=== PATIENT | male | born 1955 | race Caucasian/White ===

== ENCOUNTER 2023-03-18 10:53 | Outpatient (OUT) | payer OTHER, SELFPAY ==
--- NOTE | 2023-03-18 11:08 | US_ITS ---
The [address] [address] Patient Name: SHANNON DANIELS MRN: [id number] date: 1955 Sex: M Assigned Patient Location: US Current Patient Location: US Accession/Order Number: [id number] Exam Date: 03/18/2023 11:09 Report Date: 03/18/2023 14:42 At the request of: SHAIKH JEREL Procedure: US extremity nonvascular LT EXAMINATION: US extremity nonvascular LT HISTORY: Cellulitis of left lower leg L03.116 COMPARISON: No relevant comparison available. FINDINGS: Skin surface defect consistent with known wound. Extending from this wound within the subcutaneous fat is a 6.6 cm long heterogeneous slightly hypoechoic area 0.8 x 0.8 cm in diameter; likely phlegmonous changes; no definable abscess. Skin thickening in area of wound. US/US extremity nonvascular LT IMPRESSION: 1. Suspect phlegmonous changes within subcutaneous tissues extending from the wound. No abscess at this time. Electronically authenticated by: STACY JONES Date: 03/18/2023 14:42
== END 2023-03-18 10:54 | disposition home or self-care (01) ==
LOC: US 10:56
PROVIDERS: PCP Internal Medicine; Visit Provider Internal Medicine
DX: L03.116 Cellulitis of left lower limb (principal)
CPT/HCPCS: 76882

== ENCOUNTER 2023-03-19 13:46 | Outpatient (OUT) | payer OTHER, SELFPAY | END 2023-03-19 13:47 | disposition home or self-care (01) | LOC: WC 13:46 | PROVIDERS: PCP Internal Medicine; Visit Provider Surgery | DX: E11.622 Type 2 diabetes mellitus with other skin ulcer (principal); L97.921 Non-pressure chronic ulcer of unspecified part of left lower leg limited to breakdown of skin | CPT/HCPCS: G0463 ==

== ENCOUNTER 2023-06-16 08:35 | Outpatient (OUT) | payer OTHER, SELFPAY ==
--- NOTE | 2023-06-16 08:44 | XR_ITS ---
The [address] [address] Patient Name: SHANNON DANIELS MRN: [id number] date: 1955 Sex: M Assigned Patient Location: LAB Current Patient Location: LAB Accession/Order Number: [id number] Exam Date: 06/16/2023 08:50 Report Date: 06/16/2023 16:12 At the request of: SHAIKH JEREL Procedure: XR knee CARLOS 4V EXAM: XR knee CARLOS 4V HISTORY: Bilateral Knee Pain COMPARISON: None. TECHNIQUE: Routine views of the XR knee CARLOS 4V FINDINGS/ XR/XR knee CARLOS 4V IMPRESSION: 1. No acute fractures. 2. Unremarkable soft tissues. 3. Moderate to severe tricompartmental bilateral knee osteoarthritis. Multiple right-sided small intra-articular osteochondral bodies. No significant effusion. Electronically authenticated by: PABLO DUMONT Date: 06/16/2023 16:12
[2023-06-16 09:22] LABS: Basophils Absolute Auto 0.1 10^3/uL (0.0-0.1); Basophils Percent Auto 0.7 % (0.2-2.0); Eosinophils Absolute Auto 0.2 10^3/uL (0.0-0.7); Eosinophils Percent Auto 2.2 % (0.9-7.0); Hematocrit 44.3 % (42.0-54.0); Immature Granulocytes Abs Auto 0.02 10^3/uL (0.00-0.03); Immature Granulocytes Pct Auto 0.2 % (0.0-0.5); Lymphocytes Absolute Auto 2.2 10^3/uL (1.2-3.8); Lymphocytes Percent Auto 25.2 % (20.5-60.0); Mean Corpuscular HGB Conc 33.9 g/dL (29.9-35.2); Mean Corpuscular Hemoglobin 28.6 pg (25.9-34.0); Mean Corpuscular Volume 84.5 fL (80.0-94.0); Mean Platelet Volume 9.9 fL (9.5-13.5); Monocytes Absolute Auto 0.5 10^3/uL (0.3-0.8); Monocytes Percent Auto 5.8 % (1.7-12.0); Neutrophils Absolute Auto 5.7 10^3/uL (1.4-6.5); Neutrophils Percent Auto 65.9 % (43.0-75.0); Platelet Count 180 10^3/uL (150-450); Red Blood Count 5.24 10^6/uL (4.70-6.10); Red Cell Distribution Width 13.6 % (11.0-15.0); White Blood Count 8.7 10^3/uL (4.0-11.0)
[2023-06-16 10:03] LABS: Estimated Average Glucose 157 mg/dL; Glycohemoglobin A1C 7.1 % (4.5-6.2)
[2023-06-16 10:23] LABS: Alanine Aminotransferase 30 U/L (16-63); Albumin Globulin Ratio 1.2; Alkaline Phosphatase 79 U/L (46-116); Anion Gap 15.5; Aspartate Amino Transferase 14 U/L (15-37); BUN Creatinine Ratio 18.3; Bilirubin Total 0.4 mg/dL (0.2-1.0); Calcium 9.1 mg/dL (8.5-10.1); Carbon Dioxide 28.3 mmol/L (21.0-32.0); Chloride 101 mmol/L (98-107); Chol HDL Ratio 3.8; Cholesterol 174 mg/dL (<=200); Estimated GFR (African America >60 (>=60); Estimated GFR (Non-African Ame >60 (>=60); Globulin 3.4 g/dL; Glucose 138 mg/dL (74-106); HDL Cholesterol 46 mg/dL (40-60); Potassium 3.8 mmol/L (3.5-5.1); Sodium 141 mmol/L (136-145); Total Protein 7.4 g/dL (6.4-8.2); Triglycerides 189 mg/dL (<=150); VLDL CHOLESTEROL 37.8 mg/dL
[2023-06-16 11:42] LABS: Prostate Specific Antigen Scrn 0.36 ng/mL (<=4.00)
== END 2023-06-16 08:36 | disposition home or self-care (01) ==
LOC: LAB 08:36
PROVIDERS: PCP Internal Medicine; Visit Provider Internal Medicine
DX: E78.5 Hyperlipidemia, unspecified (principal); E11.9 Type 2 diabetes mellitus without complications; Z12.5 Encounter for screening for malignant neoplasm of prostate; M25.561 Pain in right knee; M25.562 Pain in left knee; M17.0 Bilateral primary osteoarthritis of knee
CPT/HCPCS: 36415; 73564; 80053; 80061; 83036; 85025; G0103

== ENCOUNTER 2023-08-28 09:13 | Outpatient (OUT) | payer OTHER, SELFPAY ==
--- NOTE | 2023-08-28 | ECG_ITS ---
The [facility] Test Date: 2023-08-28 Pat Name: SHANNON DANIELS Department: Room: - Gender: Male [employer]: : 1955 Requested By: SHAIKH JEREL Order Number: [id number] Reading MD: MAIA MOMIN Measurements Intervals [place] Rate: 89 P: 51 [place]: 159 QRS: 47 QRSD: 111 T: 47 QT: 337 QTc: 411 Interpretive Statements SINUS RHYTHM LOW QRS VOLTAGE IN PRECORDIAL LEADS [QRS DEFLECTION < 1.0 mV IN CHEST LEADS] MODERATE INTRAVENTRICULAR CONDUCTION DELAY [110+ ms QRS DURATION] No previous ECG available for comparison Electronically Signed On 08-29-2023 7:11:01 EST by MAIA MOMIN
== END 2023-08-28 09:14 | disposition home or self-care (01) ==
LOC: CARD 09:15
PROVIDERS: PCP Internal Medicine; Visit Provider Internal Medicine
DX: R06.09 Other forms of dyspnea (principal)
CPT/HCPCS: 93005

== ENCOUNTER 2023-10-05 08:37 | Outpatient (OUT) | payer OTHER, SELFPAY ==
--- NOTE | 2023-10-05 08:00 | NM_ITS ---
Patient Name: SHANNON DANIELS MR#: [id number] : 1955 Exam Date: 10/05/2023 Ordering Doctor: SHAIKH Holly BELTRÁN . RADIOLOGY REPORT PROCEDURE: NM ALEJANDRO PERF SPECT REST STR COMPARISON: None. INDICATIONS: DYSPNEA ON EXERTION TECHNIQUE: Exam Description: Stress/Rest two day protocol gated SPECT Rest Imagin.0 mCi Tc-99m Cardiolite IV on 10/05/2023 Stress Imaging 25.3 mCi Tc-99m Cardiolite IV on 10/07/2023 Exercise Protocol: 0.4 mg Lexiscan given IV Heart Rate (bpm): Rest: 80 Max: 96 PMHR: 62 Blood Pressure: Rest: 156/84 Max: 170/96 Symptoms: Rest and peak stress ECG findings were normal and the exercise portion of the study was normal per attending physician Dr. Hurst . For more details please see separate cardiac stress test report. FINDINGS: QUALITY OF STUDY: Good. PERFUSION DEFECT: LOCATION: Basal inferior. Mid-inferior. Apical inferior. SIZE: Medium (3-4 segments). SEVERITY: Moderate. TYPE: Persistent. WALL MOTION: Normal. LV SIZE: Enlarged; EDV 156 mL. TID / TCD: None; 1.0 LVEF: Normal. Calculated EF 60%. SUMMARY: Myocardial perfusion imaging study has ABNORMAL findings. CONCLUSION: 1. No acute or reversible ischemia. 2. Fixed defect involving inferior wall from base to apex versus diaphragm attenuation artifact. 3. Left ventriculomegaly, 156 mL. 4. Normal wall motion and ejection fraction. Dictated by: Jose Manuel Judd M.D. on 10/08/2023 at 09:28 Approved by: Jose Manuel Judd M.D. on 10/08/2023 at 09:32
--- OUTSIDE RECORDS SUMMARY | 2023-10-05 08:41 | XMS_ITS | CCD ---
Author Name Unknown Address [address] [facility] [address] [place] [address] Organization [facility] Care Team Providers Care Hearing Impaired Itinerant Teacher Name Role Phone PaulaEma Unavailable SHAIKH Shadi RAM Attending Unavailable SHAIKH Shadi RAM Admitting Unavailable SHAIKH Shadi RAM Primary Care Unavailable SHAIKH Shadi RAM Admitting Unavailable SHAIKH Shadi RAM Primary Care Unavailable SHAIKH Shadi RAM Consulting Unavailable SHAIKH Shadi RAM Attending Unavailable Ban Heaton Unavailable Shaikh Ram MD Primary Care Provider [phone] SHAIKH RAM Attending Unavailable STEWART FLYNN Attending Unavailable Medications Current Medications Medication Drug Class(es) Dates Sig (Normalized) Sig (Original) ALPRAZolam 1 mg oral tablet (2 sources) Benzodiazepine take 1 tablet by mouth every twelve hours ALPRAZolam 1 MG 1 tablet Orally Twice a day Active ascorbic acid 60 mg / beta carotene 5000 unt / copper sulfate 40 mg / dl-alpha tocopheryl acetate 30 unt / sodium selenite 0.04 mg / zinc oxide 40 mg oral tablet (3 sources) Vitamin C Multiple Vitamin (Multivitamin Adult) tablet Orally 0 Active aspirin 81 mg delayed release oral tablet (7 sources) Platelet Aggregation Inhibitor, Nonsteroidal Anti-inflammatory Drug take 1 tablet by mouth in the morning aspirin 81 MG EC tablet Take 81 mg by mouth in the morning. 0 Active aspirin 81 MG ch ewable tablet Chew 81 mg in the morning. 0 Active carvedilol 12.5 mg oral tablet (3 sources) alpha-Adrenergic Gabby, beta-Adrenergic Gabby take 1 tablet by mouth every twelve hours carvedilol (Coreg) 12.5 MG tablet Take 12.5 mg by mouth every 12 (twelve) hours 0 Active cephalexin 500 mg oral capsule (1 source) Cephalosporin Antibacterial Start: 2022 take 1 capsule by mouth every eight hours Cephalexin 500 MG 1 capsule Orally every 8 hrs for 7 days Feb, Active Continuous Blood Gluc Computer Numerical Control Machinist (FreeStyle Anamaria 2 [place]) device (3 sources) Start: 2022 Continuous Blood Gluc Computer Numerical Control Machinist (FreeStyle Anamaria 2 [place]) device USE DIRECTED to test BLOOD SUGAR 0 06/15/2023 Active Continuous Blood Gluc Sensor (FreeStyle Anamaria 2 Sensor) misc (3 sources) Start: 2022 Continuous Blood Gluc Sensor (FreeStyle Anamaria 2 Sensor) misc USE DIRECTED to test BLOOD SUGAR; change EVERY 14 days 0 06/15/2023 Active 0.5 ml dulaglutide 3 mg/ml auto-injector (3 sources) GLP-1 Receptor Agonist inject 1.5 mg by subcutaneous injection every week Trulicity 1.5 MG/0.5ML solution pen-injector INJECT 1.5 mg SUBCUTANEOUSLY once a week 0 Active DULoxetine 30 mg delayed release oral capsule (3 sources) Serotonin and Norepinephrine Reuptake Inhibitor Start: 2023 take 1 capsule by mouth once daily DULoxetine (Cymbalta) [address] capsule Indications: Other specified anxiety disorders TAKE 1 CAPSULE BY MOUTH DAILY 30 capsule 0 09/07/2023 Active Start: 08-13-2023 take 1 capsule by [facility] once daily DULoxetine (Cymbalta) [address] capsule Indications: Other specified anxiety disorders TAKE 1 CAPSULE BY MOUTH DAILY 30 capsule 0 08/13/2023 Active furosemide 40 mg oral tablet (2 sources) Loop Diuretic take 1 tablet by mouth every twenty-four hours Furosemide 40 MG 1 tablet Orally Once a day Active hydroCHLOROthiazide 25 mg / lisinopril 20 mg oral tablet (3 sources) Thiazide Diuretic, Angiotensin Converting Enzyme Inhibitor take 1 tablet by mouth in the morning lisinopril-hydro CHLOROthiazide 20-25 MG tablet Take 1 tablet by mouth in the morning. 0 Active lisinopril 10 mg oral tablet (2 sources) Angiotensin Converting Enzyme Inhibitor take 1 tablet by mouth every twenty-four hours Lisinopril 10 MG 1 tablet Orally Once a day Active loratadine 10 mg oral tablet (3 sources) Start: End: take 1 tablet by mouth once in the morning loratadine (Claritin) 10 MG tablet Indications: H/O seasonal allergies Take 1 tablet (10 mg) by mouth in the morning. 90 tablet 0 09/07/2023 12/06/2023 Active Start: 07-09-2023 End: 08-27-2023 take 1 capsule by mouth in the morning Loratadine 10 MG capsule Indications: Non-seasonal allergic rhinitis, unspecified trigger Take 10 mg by mouth in the morning. 30 capsule 1 07/09/2023 08/27/2023 Discontinued (Therapy completed) meloxicam 15 mg oral tablet (3 sources) Nonsteroidal Anti-inflammatory Drug Start: 06-15-2023 take 1 tablet by mouth every twenty-four hours as needed meloxicam (Mobic) 15 MG tablet Take 15 mg by mouth Daily as needed 0 06/15/2023 Active metFORMIN hydrochloride 1000 mg oral tablet (5 sources) Biguanide take 1 tablet by mouth in the morning metFORMIN (Glucophage) 1000 MG tablet Take 1,000 mg by mouth in the morning and 1,000 mg before bedtime. 0 Active take 1 tablet by ronda th every twelve hours metFORMIN HCl 500 MG 1 tablet with meals Orally Twice a day Active Multivitamin Adult - (2 sources) Multivitamin Justin lt - Orally Active PARoxetine hydrochloride 20 mg oral tablet (3 sources) Serotonin Reuptake Inhibitor Start: 3 take 1 tablet by mouth in the morning PARoxetine (Paxil) 20 MG tablet Take 20 mg by mouth in the morning. 0 06/16/2023 Active pravastatin sodium 40 mg oral tablet (5 sources) HMG-CoA Reductase Inhibitor take 1 tablet by mouth in the morning pravastatin (Pravachol) 40 MG tablet Take 40 mg by mouth in the morning. 0 Active traMADol hydrochloride 50 mg oral tablet (2 sources) Opioid Agonist take 1 tablet by mouth every six hours traMADol HCl 50 MG 1 tablet as needed Orally every 6 hrs Active traZODone hydrochloride 50 mg oral tablet (2 sources) Serotonin Reuptake Inhibitor take 1 tablet by mouth at bedtime traZODone HCl 50 MG 1 tablet at bedtime Orally Active Completed/Discontinued Medications Medication Drug Class(es) Dates Sig (Normalized) Sig (Original) amLODIPine 10 mg oral tablet (4 sources) Dihydropyridine Calcium Channel Gabby End: 08-27-2023 take 1 tablet by mouth in the morning amLODIPine (Norvasc) 10 MG tablet Take 10 mg by mouth in the morning. 0 08/27/2023 Discontinued (Therapy completed) 24 hr buPROPion hydrochloride 150 mg extended release oral tablet (4 sources) Aminoketone End: 08-27-2023 take 1 tablet by mouth every twenty-four hours in the morning buPROPion XL (Wellbutrin XL) 150 MG 24 hr tablet Take 150 mg by mouth in the morning. 0 08/27/2023 Discontinued (Ineffective) take 1 tablet by ronda th every twenty-four hours buPROPion HCl ER (XL) 150 MG 1 tablet in the morning Orally Once a day Active FLUoxetine 20 mg oral capsule (2 sources) Serotonin Reuptake Inhibitor take 1 capsule by mouth every twenty-four hours FLUoxetine HCl 20 MG 1 capsule in the morning Orally Once a day Not-Taking ketorolac tromethamine 5 mg/ml ophthalmic solution (3 sources) Nonsteroidal Anti-inflammatory Drug, Cyclooxygenase Inhibitor Start: 023 End: 024 take 1 drop(s) into the eye(s) four times daily ketorolac (Acular) 0.5 % ophthalmic solution INSTILL 1 DROP into operative eye FOUR TIMES DAILY DIRECTED 0 01/04/2023 08/27/2023 Discontinued (Therapy completed) Start: 08-10-2017 Toradol per 15 mg Jul, 60 mg naproxen 500 mg oral tablet (2 sources) Nonsteroidal Anti-inflammatory Drug End: 08-27-2023 naproxen (Naprosyn) 500 MG tablet every 12 (twelve) hours 0 08/27/2023 Discontinued (Therapy completed) Problems Active Problems Problem Classification Problem Date Documented Da te Episodic/Chronic Allergic reactions (1 source) H/O: non-drug allergy; Translations: [Allergy status to unspecified drugs, medicaments and biological substances status] 09-07-2023 Episodic Diabetes mellitus without complication (7 sources) Type 2 diabetes mellitus without complications; Translations: [Type 2 diabetes mellitus without complication] Onset: 10-08-2022 Chronic Disorders of lipid metabolism (3 sources) Hyperlipidemia, unspecified; Translations: [Hyperlipidemia] Onset: 10-16-2022 08-27-2023 Chronic Essential hypertension (3 sources) Essential hypertension; Translations: [Essential (primary) hypertension] Onset: 08-27-2023 08-27-2023 Chronic Open wounds of extremities (1 source) Laceration without foreign body, left lower leg, initial encounter Episodic Other lower respiratory disease (3 sources) Dyspnea on exertion; Translations: [Other forms of dyspnea] Onset: 08-27-2023 08-27-2023 Episodic Other non-traumatic joint disorders (3 sources) Pain in right knee; Translations: [Pain in joint, lower leg] Onset: 06-22-2023 06-22-2023 Episodic Other nutritional; endocrine; and metabolic disorders (3 sources) Severe obesity; Translations: [Morbid (severe) obesity due to excess calories] Onset: 07-09-2023 07-09-2023 Chronic Other upper respiratory disease (3 sources) Allergic rhinitis; Translations: [Other allergic rhinitis] Onset: 07-09-2023 07-09-2023 Chronic Other upper respiratory infections (4 sources) Acute upper respiratory infection, unspecified; Translations: [Acute sinusitis] Onset: 07-12-2021 Resolved: 07-12-2021 Episodic Residual codes; unclassified (3 sources) Obstructive sleep apnea syndrome; Translations: [Obstructive sleep apnea (adult) (pediatric)] Onset: 08-27-2023 08-27-2023 Chronic Spondylosis; intervertebral disc disorders; other back problems (4 sources) Lumbar spondylosis; Translations: [Spondylosis without myelopathy or radiculopathy, lumbar region] Onset: 08-30-2018 08-27-2023 Chronic Past or Other Problems Problem Classification Problem Date Documented Da te Episodic/Chronic Immunizations and screening for infectious disease (1 source) Contact with and (suspected) exposure to other viral communicable diseases Onset: 07-12-2021 Resolved: 07-12-2021 Episodic Malaise and fatigue (1 source) Other fatigue Onset: 07-12-2021 Resolved: 07-12-2021 Episodic Mood disorders (2 sources) Mood disorders Onset: 08-27-2023 08-27-2023 Other non-traumatic joint disorders (2 sources) Pain in right hip joint; Translations: [Pain in right hip] Onset: 04-20-2019 08-27-2023 Episodic Results Test Name Value Interpretation Reference Range Facility CBC AUTO DIFFon 10-08-2022 BASO # 0.1 103/ul Normal 0.0-0.1 [facility] Comment on above: Performed By: #### C BC #### [facility] [address] [place] [address] Dr. Brandon Gilmore Basophils/100 WBC (Bld) 0.8 % Normal 0.2-2.0 [facility] Comment on above: Performed By: #### C BC #### [facility] [address] [place] [address] Dr. Brandon iGlmore EO # 0.1 103/ul Normal 0.0-0.7 [facility] Comment on above: Performed By: #### C BC #### [facility] [address] [place] [address] Dr. Brandon Gilmore Eosinophils/100 WBC (Bld) 1.7 % Normal 0.9-7.0 [facility] Comment on above: Performed By: #### C BC #### [facility] [address] [place] [address] Dr. Brandon Gilmore Erythrocyte distribution width (RBC) [Ratio] 14.0 % Normal 11.0-15.0 [facility] Comment on above: Performed By: #### C BC #### [facility] [address] [place] [address] Dr. Brandon Gilmore Hematocrit (Bld) [Volume fraction] 42.7 % Normal 42.0-54.0 [facility] Comment on above: Performed By: #### C BC #### [facility] [address] [place] [address] Dr. Brandon Gilmore Hemoglobin (Bld) [Mass/Vol] 14.9 g/dL Normal 14.0-18.0 [facility] Comment on above: Performed By: #### C BC #### [facility] [address] [place] [address] Dr. Brandon Gilmore IG # 0.02 10e3/ul Normal 0.00-0.03 [facility] Comment on above: Performed By: #### C BC #### [facility] [address] [place] [address] Dr. Brandon Gilmore IG % 0.3 % Normal 0.0-0.5 [facility] Comment on above: Performed By: #### C BC #### [facility] [address] [place] [address] Dr. Brandon Gilmore LYMPH # 1.9 103/ul Normal 1.2-3.8 [facility] Comment on above: Performed By: #### C BC #### [facility] [address] [place] [address] Dr. Brandon Gilmroe Lymphocytes/100 WBC (Bld) 25.0 % Normal 20.5-60.0 [facility] Comment on above: Performed By: #### C BC #### [facility] [address] [place] [address] Dr. Brandon Gilmore MANUAL DIFF REQ NO Normal [facility] Comment on above: Performed By: #### C BC #### [facility] [address] [place] [address] Dr. Brandon Gilmore MCH (RBC) [Entitic mass] 29.1 pg Normal 25.9-34.0 [facility] Comment on above: Performed By: #### C BC #### [facility] [address] [place] [address] Dr. Brandon Gilmore MCHC (RBC) [Mass/Vol] 34.9 g/dL Normal 29.9-35.2 [facility] Comment on above: Performed By: #### C BC #### [facility] [address] [place] [address] Dr. Brandon Gilmore MCV (RBC) [Entitic vol] 83.4 fL Normal 80.0-94.0 [facility] Comment on above: Performed By: #### C BC #### [facility] [address] [place] [address] Dr. Brandon Gilmore MONO # 0.5 103/ul Normal 0.3-0.8 [facility] Comment on above: Performed By: #### C BC #### [facility] [address] [place] [address] Dr. Brandon Gilmore Monocytes/100 WBC (Bld) 6.1 % Normal 1.7-12.0 [facility] Comment on above: Performed By: #### C BC #### [facility] [address] [place] [address] Dr. Brandon Gilmore NEUT # 5.1 103/ul Normal 1.4-6.5 [facility] Comment on above: Performed By: #### C BC #### [facility] [address] [place] [address] Dr. Brandon Gilmore Neutrophils/100 WBC (Bld) 66.1 % Normal 43.0-75.0 [facility] Comment on above: Performed By: #### C BC #### [facility] [address] [place] [address] Dr. Brandon Gilmore Platelet mean volume (Bld) [Entitic vol] 9.7 fL Normal 9.5-13.5 [facility] Comment on above: Performed By: #### C BC #### [facility] [address] [place] [address] Dr. Brandon Gilmore PLT 195 103/ul Normal 150-450 [facility] Comment on above: Performed By: #### C BC #### [facility] [address] [place] [address] Dr. Brandon Gilmore RBC 5.12 106/ul Normal 4.70-6.10 [facility] Comment on above: Performed By: #### C BC #### [facility] [address] [place] [address] Dr. Brandon Gilmore WBC 7.7 103/ul Normal 4.0-11.0 [facility] Comment on above: Performed By: #### C BC #### [facility] [address] [place] [address] Dr. Brandon Gilmore GLYCOHEMOGLOBIN A1Con 2022 ADA RECOMMENDATION SEE BELOW Normal [facility] Comment on above: Result Comment: ADA RECOMMENDED LIMIT 4.0 - 6.0 ADA THERAPEUTIC TARGET < 7.0 ACTION SUGGESTED > 7.0 Performed By: #### A 1C #### [facility] [address] [place] [address] Dr. Brandon Gilmore Glucose [Mass/Vol] 137 mg/dL Normal [facility] Comment on above: Performed By: #### A 1C #### [facility] [address] [address] [address] Brandon Gilmore HbA1c (Bld) [Mass fraction] 6.4 % Critically high 4.5-6.2 [facility] Comment on above: Performed By: #### A 1C #### [facility] [address] [address] [address] Brandon Gilmore LIPID PROFILEon 10-08-2022 CHOL-HDL RATIO NORM SEE BELOW Normal [facility] Comment on above: Result Comment: 3.3 - 4.4 LOW RISK 4.4 - 7.1 AVERAGE RISK 7.1 - 11.0 MODERATE RISK >11.0 HIGH RISK Performed By: #### L IPID, CMP #### [facility] [address] [address] [address] Brandon Gilmore Cholesterol [Mass/Vol] 196 mg/dL Normal <=200 [facility] Comment on above: Performed By: #### L IPID, CMP #### [facility] [address] [address] [address] Brandon Gilmore Cholesterol in HDL [Mass/Vol] 48 mg/dL Normal 40-60 [facility] Comment on above: Performed By: #### L IPID, CMP #### [facility] [address] [address] [address] Brandon Gilmore Cholesterol in LDL [Mass/Vol] 101.8 mg/dL Normal [facility] Comment on above: Performed By: #### L IPID, CMP #### [facility] [address] [address] [address] Brandon Gilmore Cholesterol.total/Ch olesterol in HDL [Mass ratio] 4.1 {ratio} Normal [facility] Comment on above: Performed By: #### L IPID, CMP #### [facility] [address] [address] [address] Brandon Gilmore HDL NORMAL > or = 60 mg/dl - LOW CARDIOVASCULAR RISK <40 mg/dl - HIGH CARDIOVASCULAR RISK Normal [facility] Comment on above: Performed By: #### L IPID, CMP #### [facility] [address] [address] [address] Brandon Gilmore LDL CALC NORMAL SEE BELOW Normal [facility] Comment on above: Result Comment: <100 mg/dl OPTIMAL 100 - 129 mg/dl NEAR OR ABOVE OPTIMAL 130 - 159 mg/dl BORDERLINE HIGH 160 - 189 mg/dl HIGH >190 mg/dl VERY HIGH Performed By: #### L IPID, CMP #### [facility] [address] [address] [address] Brandon Gilmore Triglyceride [Mass/Vol] 231 mg/dL Critically high <=150 [facility] Comment on above: Performed By: #### L IPID, CMP #### [facility] [address] [address] [address] Brandon Gilmore VLDL CALC 46.2 mg/dL Normal [facility] Comment on above: Performed By: #### L IPID, CMP #### [facility] [address] [address] [address] Brandon Gilmore MICROALB CREAT RATIO RANDOMo n 10-08-2022 mALB 1.7 mg/L Normal <=30.0 [facility] Comment on above: Performed By: #### M CRR #### [facility] [address] [address] [address] Brandon Gilmore MALB CR RATIO 20.6 mg/g Normal 0.0-29.9 [facility] Comment on above: Performed By: #### M CRR #### [facility] [address] [address] [address] Brandon Gilmore MALB CR RATIO RANGE SEE BELOW Normal [facility] Comment on above: Result Comment: NO M ICROALBUMINURIA 0-29 MG/G CLINICAL MICROALBUMINURIA 30-300 MG/G MACROALBUMINURIA >300 MG/G Performed By: #### M CRR #### [facility] [address] [address] [address] Brandon Gilmore URINE CREAT 82.51 mg/dL Normal 20.00-300.00 [facility] Comment on above: Performed By: #### M CRR #### [facility] [address] [address] [address] Brandon Gilmore PROF 14(COMP METB)on 023 Albumin [Mass/Vol] 4.0 g/dL Normal 3.4-5.0 [facility] Comment on above: Performed By: #### L IPID, CMP #### [facility] [address] [address] [address] Brandon Gilmore Albumin/Globulin [Mass ratio] 1.2 {ratio} Normal [facility] Comment on above: Performed By: #### L IPID, CMP #### [facility] [address] [place] [address] Dr. Brandon Gilmore ALP [Catalytic activity/Vol] 90 U/L Normal 46-116 [facility] Comment on above: Performed By: #### L IPID, CMP #### [facility] [address] [place] [address] Dr. Brandon Gilmore ALT [Catalytic activity/Vol] 25 U/L Normal 16-63 [facility] Comment on above: Performed By: #### L IPID, CMP #### [facility] [address] [address] [address] Brandon Gilmore Anion gap [Moles/Vol] 10.9 mmol/L Normal [facility] Comment on above: Performed By: #### L IPID, CMP #### [facility] [address] [address] [address] Brandon Gilmore AST [Catalytic activity/Vol] 17 U/L Normal 15-37 [facility] Comment on above: Performed By: #### L IPID, CMP #### [facility] [address] [address] [address] Brandon Gilmore Bilirubin [Mass/Vol] 0.4 mg/dL Normal 0.2-1.0 [facility] Comment on above: Performed By: #### L IPID, CMP #### [facility] [address] [place] [address] Dr. Brandon Gilmore Calcium [Mass/Vol] 10.1 mg/dL Normal 8.5-10.1 [facility] Comment on above: Performed By: #### L IPID, CMP #### [facility] [address] [place] [address] Dr. Brandon Gilmore Chloride [Moles/Vol] 106 mmol/L Normal 98-107 [facility] Comment on above: Performed By: #### L IPID, CMP #### [facility] [address] [place] [address] Dr. Brandon Gilmore CO2 [Moles/Vol] 29.4 mmol/L Normal 21.0-32.0 [facility] Comment on above: Performed By: #### L IPID, CMP #### [facility] [address] [place] [address] Dr. Brandon Gilmore Creatinine [Mass/Vol] 0.78 mg/dL Normal 0.70-1.30 [facility] Comment on above: Performed By: #### L IPID, CMP #### [facility] [address] [place] [address] Dr. Brandon Gilmore EGFR-AF SINGAPOREAN >60 Normal >=60 [facility] Comment on above: Performed By: #### L IPID, CMP #### [facility] [address] [place] [address] Dr. Brandon Gilmore EGFR-NON AF SINGAPOREAN >60 Normal >=60 [facility] Comment on above: Performed By: #### L IPID, CMP #### [facility] [address] [place] [address] Dr. Brandon Gilmore Globulin (S) [Mass/Vol] 3.3 g/dL Normal [facility] Comment on above: Performed By: #### L IPID, CMP #### [facility] [address] [place] [address] Dr. Brandon Gilmore Glucose [Mass/Vol] 213 mg/dL Critically high 74-106 [facility] Comment on above: Performed By: #### L IPID, CMP #### [facility] [address] [place] [address] Dr. Brandon Gilmore Potassium [Moles/Vol] 4.3 mmol/L Normal 3.5-5.1 [facility] Comment on above: Performed By: #### L IPID, CMP #### [facility] [address] [place] [address] Dr. Brandon Gilmore Protein [Mass/Vol] 7.3 g/dL Normal 6.4-8.2 [facility] Comment on above: Performed By: #### L IPID, CMP #### [facility] [address] [place] [address] Dr. Brandon Gilmore Sodium [Moles/Vol] 142 mmol/L Normal 136-145 [facility] Comment on above: Performed By: #### L IPID, CMP #### [facility] [address] [place] [address] Dr. Brandon Gilmore Urea nitrogen [Mass/Vol] 14.0 mg/dL Normal 7.0-18.0 [facility] Comment on above: Performed By: #### L IPID, CMP #### [facility] [address] [place] [address] Dr. Brandon Gilmore Urea nitrogen/Creatinine [Mass ratio] 17.9 mg/mg Normal [facility] Comment on above: Performed By: #### L IPID, CMP #### [facility] [address] [place] [address] Dr. Brandon Gilmore Quick Fluon 07-12-2021 FLUAV Ab CF (S) [Titer] Negative [employer] [facility] [employer] Other FLUBV Ab CF (S) [Titer] Negative [facility] [employer] Other Vital Signs Date Time Vital Sign Value Performing Clinician Facility 08-27-2023 15:27-0500 Body height 167.6 cm Shaikh Leanna WYNNE Work Phone: [facility] 08-27-2023 15:27-0500 Body mass index (BMI) [Ratio] 52.62 kg/m2 Shaikh Leanna WYNNE Work Phone: [facility] 08-27-2023 15:27-0500 Body temperature 96.8 [degF] Shaikh Leanna WYNNE Work Phone: [facility] [employer] 08-27-2023 15:27-0500 Body weight 147.87 kg Shaikh Leanna WYNNE Work Phone: [facility] [employer] 08-27-2023 15:27-0500 Diastolic blood pressure 90 mm[Hg] Shaikh Leanna WYNNE Work Phone: [facility] [employer] 08-27-2023 15:27-0500 Heart rate 98 /min Shaikh Leanna WYNNE Work Phone: [facility] [employer] 08-27-2023 15:27-0500 SaO2% (BldA) [Mass fraction] 95 % Shaikh Leanna WYNNE Work Phone: [facility] [employer] 08-27-2023 15:27-0500 Systolic blood pressure 126 mm[Hg] Shaikh Leanna WYNNE Work Phone: [facility] [employer] 03-09-2023 18:05-0400 Body height 167.64 cm Ban Heatno Other [facility] Other 03-09-2023 18:05-0400 Body mass index (BMI) [Ratio] 52.45 kg/m2 Ban Heaton Other [facility] Other 03-09-2023 18:05-0400 Body temperature 97.5 [degF] Ban Heaton Other [facility] Other 03-09-2023 18:05-0400 Body weight 147.42 kg Ban Heaton Other [facility] Other 03-09-2023 18:05-0400 Diastolic blood pressure 83 mm[Hg] Ban Heaton Other [facility] Other 03-09-2023 18:05-0400 Respiratory rate 18 /min Ban Heaton Other [facility] Other 03-09-2023 18:05-0400 SaO2% (BldA) [Mass fraction] 97 % Ban Heaton Other [facility] Other 03-09-2023 18:05-0400 Systolic blood pressure 144 mm[Hg] Ban Bustilloley Other [facility] Other 07-12-2021 12:30-0500 Body height 167.64 cm Ema Mitchell Other [facility] Other 07-12-2021 12:30-0500 Body mass index (BMI) [Ratio] 51.64 kg/m2 Ema Barkermond Other [facility] Other 07-12-2021 12:30-0500 Body temperature 98.3 [degF] Ema Mitchell Other [facility] Other 07-12-2021 12:30-0500 Body weight 145.15 kg Ema Mitchell Other [facility] Other 07-12-2021 12:30-0500 SaO2% (BldA) [Mass fraction] 92 % Ema Mitchell Other [facility] Other Encounters Encounter Date Encounter Type Care Provider Facility Start: 09-07-2023 Orders Only Shaikh Leanna WYNNE Work Phone: [facility] Comment on above: H/O seasonal allergi es (Primary Dx) Start: 08-27-2023 End: 08-27-2023 ambulatory SHAIKH LEANNA Not Available Start: 08-27-2023 End: 08-27-2023 Office outpatient visit 25 minutes Shaikh Leanna WYNNE Work Phone: [facility] Comment on above: IQBAL (dyspnea on exer tion) (Primary Dx); JEFF (obstructive sleep apnea); Primary hypertension (CMS/HCC); Type 2 diabetes mellitus without complication, without long-term current use of insulin (CMS/HCC) Start: 08-27-2023 Vidya Ram MD Work Phone: [facility] Start: 08-27-2023 Vidya Ram MD Work Phone: [facility] Start: 07-09-2023 End: 07-09-2023 ambulatory STEWART FLYNN Not Available Start: 03-09-2023 End: 03-09-2023 ambulatory Ban Heaton Other [facility] Other Start: 03-09-2023 Office outpatient vi sit 15 minutes Ban Heaton [facility] Start: 10-08-2022 End: 10-09-2022 ambulatory Shadi LEANNA Facility:[facility] Start: 11-21-2021 ambulatory Shadi LEANNA Facilit y:[facility] Start: 07-12-2021 (URG) Urgent Care Visit Ema veliz [facility] Start: 07-12-2021 End: 07-12-2021 ambulatory Ema Mitchell Other [facility] Other Procedures Date Procedure Procedure Detail Performing Clinician Start: 02-16-2020 Colonoscopy Shaikh Natan mayer MD Work Phone: Plan of Treatment Date Care Activity Detail Author Start: 02-15-2030 Screening for malign ant neoplasm of colon [facility] Start: 06-26-2025 Glaucoma screening Diabetes: R etinopathy Screening [facility] Start: 05-27-2024 Urine screening for protein Diabetes: Urine Protein Screening [facility] Start: 01-24-2024 Influenza vaccination Influenza Vacc ine (#1) [facility] Comment on above: Postponed from 03/27 (Patient Refused) Start: 08-27-2023 End: 08-27-2023 Patient encounter procedure 08/27/2023 3:30 PM EST Office Visit [facility] [address] [place] [address] Shaikh Ram MD [address] [place] [id number] Arrived [facility] Comment on above: Arrived Start: 08-27-2023 End: 08-27-2024 ECG 12 lead ECG 12 lead ECG Routine IQBAL (dyspnea on exertion) Expected: 08/27/2023 (Approximate), Expires: 08/27/2024 [facility] Work Phone: Comment on above: Expected: 08/27/2023 (Approximate), Expires: 08/27/2024 Start: 08-27-2023 Hemoglobin A1c measurement Diabetes: Hemoglobin A1C [facility] Start: 08-27-2023 End: 08-27-2025 NM Heart Perfusion W adenosine and W radionuclide IV STRESS NUCLEAR MEDICINE [facility] Cardiac Nuclear Medicine Routine IQBAL (dyspnea on exertion) Expected: 08/27/2023 (Approximate), Expires: 08/27/2025 [facility] Comment on above: Expected: 08/27/2023 (Approximate), Expires: 08/27/2025 Start: 03-27-2023 Influenza vaccination Influenza Vacc ine (#1) [facility] Start: 1975 Urine screening for protein Diabetes: Urine Protein Screening [facility] Start: 1966 Glaucoma screening Diabetes: R etinopathy Screening [facility] Start: 1955 Hemoglobin A1c measurement Diabetes: Hemoglobin A1C [facility] Start: 1955 Medicare Annual Well ness (AWV) Medicare Annual Wellness (AWV) [facility] Start: 1955 Screening for malign ant neoplasm of colon [facility] Immunizations Immunization Date Immunization Notes Care Provider Fa coni 03-09-2023 tetanus toxoid, reduced diphtheria toxoid, and acellular pertussis vaccine, adsorbed Ban Heaton Other [employer] Other 03-09-2023 tetanus and diphther ia toxoids, adsorbed, preservative free, for adult use (5 Lf of tetanus toxoid and 2 Lf of diphtheria toxoid) Shaikh Leanna WYNNE Work Phone: [facility] 05-22-2022 Pneumococcal Conjuga te PCV 20 Shaikh Leanna WYNNE Work Phone: [facility] 05-21-2022 Influenza, High-dose Seasonal, Quadrivalent, Preservative Free Shaikh Leanna WYNNE Work Phone: [facility] 05-21-2022 influenza virus vaccine, unspecified formulation Shaikh Leanna WYNNE Work Phone: [facility] 06-05-2021 influenza, injectabl e, quadrivalent, preservative free Shaikh Leanna WYNNE Work Phone: [facility] 04-25-2020 influenza, injectabl e, quadrivalent, preservative free Shaikh Leanna WYNNE Work Phone: [facility] 07-13-2019 influenza, injectabl e, quadrivalent, preservative free Shaikh Leanna WYNNE Work Phone: [facility] 06-07-2018 influenza, injectabl e, quadrivalent, preservative free Shaikh Leanna WYNNE Work Phone: [facility] 05-17-2017 influenza, injectabl e, quadrivalent, preservative free Shaikh Leanna WYNNE Work Phone: [facility] 05-05-2017 influenza, injectabl e, quadrivalent, preservative free Shaikh Leanna WYNNE Work Phone: [facility] Payers Date Payer Category Payer Medicare GENERIC MEDICARE ADVANTAGE GENERIC MEDICARE ADVANTAGE [id number] 2023-[facility] [phone] [place] [id number] 2022 Unknown [employer] [id number] 2022-Present [address] [place] [address] [id number] 2020 Unknown [id number] 1959 Self-pay [id number] 1955 Unknown [id number] 1956 Unknown [id number] 1956 Unknown [id number] 1956 Unknown [id number] Social History Date Type Detail Facility Unknown if ever smoked [facility] Other Start: 07-09-2023 End: 08-27-2023 Sex Assigned At [facility] Other Start: 07-09-2023 End: 08-27-2023 Tobacco smoking status NHIS Never smoked tobacco [facility] Start: 07-09-2023 End: 08-27-2023 Tobacco use and exposure Smokeless tobacco non-user [facility] Start: 08-06-2023 End: 08-27-2023 Alcohol intake Lifetime non-drinker (finding) [facility] Start: 07-09-2023 End: 08-27-2023 History of Social function [facility] Start: 1955 Sex Assigned At Not on file [facility] NEGATED: Highlighted rowStart: NINF History of tobacco use Passive smoker [facility] History of Present illness Narrative 08-27-2023 Shaikh Leanna MD - 08/27/2023 5:23 PM Radha Ram MD - 08/27/2023 5:21 PM Radha Ram MD - 08/27/2023 5:21 PM Radha Ram MD - 08/27/2023 5:18 PM EST Note Date & Type Note Facility 08-27-2023 History of Presen t illness Narrative Associated Problem(s): Type 2 diabetes mellitus without complication, without long-term current use of insulin (CMS/HCC) Last A1C 7.1 06/18. On metformin and trulicity. Non compliant with diet and has poor insight. He also saw inorganic chemist before to help manage his meals, improve his diet. Tolerating meds w/o adverse effects C/w same. Associated Problem(s): Primary hypertension (CMS/HCC) BP well controlled. On average less than 130/90. Tolerating Anti hypertensive w/o adverse effects. Denies lightheadedness, dizziness, syncope, presyncope. Patient encouraged to continue with home BP monitoring and call office if he experiences orthostatic symptoms or persistently elevated BP. Well controlled. Associated Problem(s): IQBAL (dyspnea on exertion) Reports chronic exertional dyspnea. No associated symptoms. He has noted that he feels out of breath whenever he does something. He thought this was due to his obesity and deconditioning but brought it up on todays appointment. He denies LE edema, PND, orthopnea. He has no known hx of CAD or CHF but has multiple risk factors for underlying CAD including HTN, T2 DM, Obesity, male gender, age. He is unable to exercise om treadmill due to obesity, knee pain. Order EKG to obtain baseline. Will also order Nuclear stress test to r/o underlying CAD as the probable explanation for exertional dyspnea. Associated Problem(s): JEFF (obstructive sleep apnea) Does not use CPAP. Unable to tolerate it. Tried different masks and gave up on it and not interested in using one right now. Subjective Patient ID: Rigo Bolaños Jr. is a 67 y.o. male who presents for Travel Consult. Patient travelling to [place] next week via airplane to attend his grand daughter's wedding and wanted a regular follow before his travel to make sure he did not need any special instructions or restrictions. Tolerating his medications. No active complaints other than IQBAL - discussed below. Shortness of breath: Ongoing, chronic. No symptoms at test. Symptoms are exertional. Denies CP, Palpitations, or any other symptoms. He has no known hx of CHF or CAD. No recent cardiac testing. Current Outpatient Medications on File Prior to Visit Medication Sig Dispense Refill aspirin 81 MG EC tablet Take 81 mg by mouth in the morning. carvedilol (Coreg) 12.5 MG tablet Take 12.5 mg by mouth every 12 (twelve) hours Continuous Blood Gluc Computer Numerical Control Machinist (FreeStyle Anamaria 2 Marquette) device USE DIRECTED to test BLOOD SUGAR Continuous Blood Gluc Sensor (FreeStyle Anamaria 2 Sensor) misc USE DIRECTED to test BLOOD SUGAR; change EVERY 14 days DULoxetine (Cymbalta) [address] capsule TAKE 1 CAPSULE BY MOUTH DAILY 30 capsule 0 lisinopril-hydroCHLOROthiazide 20-25 MG tablet Take 1 tablet by mouth in the morning. meloxicam (Mobic) 15 MG tablet Take 15 mg by mouth Daily as needed metFORMIN (Glucophage) 1000 MG tablet Take 1,000 mg by mouth in the morning and 1,000 mg before bedtime. Multiple Vitamin (Multivitamin Adult) tablet Orally PARoxetine (Paxil) 20 MG tablet Take 20 mg by mouth in the morning. pravastatin (Pravachol) 40 MG tablet Take 40 mg by mouth in the morning. Trulicity 1.5 MG/0.5ML solution pen-injector INJECT 1.5 mg SUBCUTANEOUSLY once a week aspirin 81 MG chewable tablet Chew 81 mg in the morning. [DISCONTINUED] amLODIPine (Norvasc) 10 MG tablet Take 10 mg by mouth in the morning. [DISCONTINUED] buPROPion XL (Wellbutrin XL) 150 MG 24 hr tablet Take 150 mg by mouth in the morning. [DISCONTINUED] ketorolac (Acular) 0.5 % ophthalmic solution INSTILL 1 DROP into operative eye FOUR TIMES DAILY DIRECTED [DISCONTINUED] Loratadine 10 MG capsule Take 10 mg by mouth in the morning. 30 capsule 1 [DISCONTINUED] naproxen (Naprosyn) 500 MG tablet every 12 (twelve) hours No current facility-administered medications on file prior to visit. No Known Allergies Review of System All systems negative except as mentioned in HPI. Visit Vitals BP 126/90 (BP Location: Left arm, Patient Position: Sitting, BP Cuff Size: Large adult) Pulse 98 Temp 96.8 F (Tympanic) Ht 5' 6 Wt 326 lb SpO2 95% BMI 52.62 kg/m Smoking Status Never BSA 2.62 m Patient Health Questionnaire-2 Score: 6 Patient Health Questionnaire-9 Score: 15 @LABRESULTS@ No images are attached to the encounter. Objective Reports SOB, on exertion. No associated symptoms. Physical Exam General: Comfortable, NAD, obese. HEENT: AT/NC. Resp: Normal RR, CTA b/l CVS: Normal HR, No mumur noted. Neuro: AAOX 3, moving all extremities. Psych: Calm, co operative, no HI/SI. Assessment/Plan Problem List Items Addressed This Visit Primary hypertension ([facility]) BP well controlled. On average less than 130/90. Tolerating Anti hypertensive w/o adverse effects. Denies lightheadedness, dizziness, syncope, presyncope. Patient encouraged to continue with home BP monitoring and call office if he experiences orthostatic symptoms or persistently elevated BP. Well controlled. JEFF (obstructive sleep apnea) Does not use CPAP. Unable to tolerate it. Tried different masks and gave up on it and not interested in using one right now. Type 2 diabetes mellitus without complication, without long-term current use of insulin ([facility]) Last A1C 7.1 06/18. On metformin and trulicity. Non compliant with diet and has poor insight. He also saw inorganic chemist before to help manage his meals, improve his diet. Tolerating meds w/o adverse effects C/w same. IQBAL (dyspnea on exertion) - Primary Reports chronic exertional dyspnea. No associated symptoms. He has noted that he feels out of breath whenever he does something. He thought this was due to his obesity and deconditioning but brought it up on todays appointment. He denies LE edema, PND, orthopnea. He has no known hx of CAD or CHF but has multiple risk factors for underlying CAD including HTN, T2 DM, Obesity, male gender, age. He is unable to exercise om treadmill due to obesity, knee pain. Order EKG to obtain baseline. Will also order Nuclear stress test to r/o underlying CAD as the probable explanation for exertional dyspnea. Relevant Orders ECG 12 lead STRESS NUCLEAR MEDICINE [facility] Follow up in about 3 months (around 11/25/2023). documented in this encounter [facility] Evaluation note 03-09-2023 Note Date & Type Note Facility 03-09-2023 Evaluation note Encounter Date Diagnosis Assessment Notes Feb, Tear of skin of multiple sites of left lower extremity, initial encounter (ICD-10 - S81.812A) Discussed with patient exam is consistent with skin tears. Larger triangular skin tear is not able to be fully approximated related to type of skin tear and also likely because injury occurred more than 12 hours ago. Areas cleaned thoroughly by medical housekeeper. Triple antibiotic ointment applied to area, covered with Telfa and Coban dressing. Patient is advised to keep area clean with soap and water. May continue applying topical antibiotic ointment. Keep covered for the next 4 to 5 days until area is starting to scab over, then may leave open to air. Elevation of lower extremity encouraged. Tylenol for any discomfort. Discussed with patient he is at moderately increased risk for infection given history of diabetes. Will cover with Keflex 3 times daily. Finish entire course. Patient is encouraged to carefully monitor area and follow-up if any spreading surrounding erythema, warmth, purulent drainage, fever. Tdap is updated in office. Patient verbalized understanding of treatment plan. [facility] Other Evaluation note 07-12-2021 Note Date & Type Note Facility 07-12-2021 Evaluation note Encounter Date Diagnosis Assessment Notes Jun, Contact with and (suspected) exposure to other viral communicable diseases (ICD-10 - Z20.828) Jun, Viral upper respiratory illness (ICD-10 - J06.9) Drink plenty fluids, get plenty of rest. Take Tylenol or Motrin as needed for aches pains or fevers. You may take Mucinex as needed for congestion. Also consider taking Coricidin HBP for your symptoms. Follow-up with your family physician as scheduled next week. Jun, Fatigue (ICD-10 - R53.83) Jun, Other Additional time spent conducting pre-visit phone call, screening for symptoms, instructions on social distancing, application and removal of PPE, and cleaning of examination room, equipment and supplies was preformed. Patient education given for testing methodology and results. Patient care instructions given in writting by [facility] document. [facility] Other Evaluation note Note Date & Type Note Facility Evaluation note Diagnosis IQBAL (dyspnea on exertion)- Primary Other dyspnea and respiratory abnormality JEFF (obstructive sleep apnea) Obstructive sleep apnea (adult) (pediatric) Primary hypertension ([facility]) Unspecified essential hypertension Type 2 diabetes mellitus without complication, without long-term current use of insulin ([facility]) documented in this encounter [facility] Evaluation note Note Date & Type Note Facility Evaluation note Diagnosis H/O seasonal allergies- Primary documented in this encounter [facility] History general Narrative - Reported Note Date & Type Note Facility History general Narrative - Reported Type Medical History Hypertension Medical History hyperlipidemia Medical History type II diabetes [facility] Other Summary Purpose Family History No Family History Records FoundNo Family History Records Found Advance Directives No Advanced Directives Records FoundNo Advanced Directives Records Found Reason for Referral Specialty Diagnoses / Procedures Referred By Contac t Referred To Contact Diagnoses IQBAL (dyspnea on exertion) Procedures STRESS NUCLEAR MEDICINE Shaikh Solorio MD [address] [place] [address] [facility] [address] [place] [address] Phone: [phone] Referral ID Status Reason Start Date Expiration Date V isits Requested Visits Authorized [id number] Pending Review 08/27/2023 02/23/2024 3 3 Additional Source Comments REASON FOR VISIT (unrecogniz ed section and content) Reason Comments Travel Consult (unrecognized sect ion and content) No Status Records FoundNo Status Records Found INFORMATION SOURCE (unrecogn ized section and content) DATE CREATED AUTHOR 10/17/2022 [facility] DATE CREATED AUTHOR AUTHOR'S ORGANIZ ATION 08/29/2023 [facility] [employer] Care Teams (unrecognized sec tion and content) Hearing Impaired Itinerant Teacher Relationship Specialty Start Date End Date Shaikh Ram MD [address] [place] [id number] PCP - General Internal Medicine 08/26/23 Hearing Impaired Itinerant Teacher Relationship Specialty Start Date End Date Shaikh Ram MD [address] [place] [id number] PCP - General Internal Medicine 08/26/23 Hearing Impaired Itinerant Teacher Relationship Specialty Start Date End Date Shaikh Ram MD [address] [place] [phone] PCP - General Internal Medicine 08/26/23 FOR RECORDS PERTAINING TO PATIENTS WHO ARE OR HAVE BEEN ENROLLED IN A CHEMICAL DEPENDENCY/SUBSTANCEABUSE PROGRAM, SOME INFORMATION MAY BE OMITTED. This clinical summary was aggregated from multiple sources. Caution should be exercised in using it in the provision of clinical care. This summary normalizes information from multiple sources, and as a consequence, information in this document may materially change the coding, format and clinical context of patient data. In addition, data may be omitted in some cases. CLINICAL DECISIONS SHOULD BE BASED ON THE PRIMARY CLINICAL RECORDS. [email or web address] provides no warranty or guarantee of the accuracy or completeness of information in this document.
== END 2023-10-05 08:38 | disposition home or self-care (01) ==
PROVIDERS: PCP Internal Medicine; Visit Provider Internal Medicine
DX: R06.09 Other forms of dyspnea (principal)
CPT/HCPCS: 78452; A9500

== ENCOUNTER 2023-10-07 07:21 | Outpatient (OUT) | payer OTHER, SELFPAY ==
--- OUTSIDE RECORDS SUMMARY | 2023-10-07 07:24 | XMS_ITS | CCD ---
Author Name Unknown Address [address] [facility] [address] [place] [address] Organization [facility] Care Team Providers Care Simonizer Name Role Phone PaulaEma Unavailable SHAIKH Shadi RAM Attending Unavailable SHAIKH Shadi RAM Admitting Unavailable SHAIKH Shadi RAM Primary Care Unavailable SHAIKH Shadi RAM Admitting Unavailable SHAIKH Shadi RAM Primary Care Unavailable SHAIKH Shadi RAM Consulting Unavailable SHAIKH Shadi RAM Attending Unavailable Ban Heaton Unavailable Shaikh Ram MD Primary Care Provider [phone] SHAIKH RAM Attending Unavailable STEWART FLYNN Attending [...] 7 days Feb, Active Continuous Blood Gluc Quality Liaison ([employer] [place]) device (3 sources) Start: 2022 Continuous Blood Gluc Quality Liaison ([employer] [place]) device USE DIRECTED to test BLOOD SUGAR [...] Active Start: 08-13-2023 take 1 capsule by [facility] once daily DULoxetine (Cymbalta) [address] [...] 10-08-2022 BASO # 0.1 103/ul Normal 0.0-0.1 [facility] Comment on above: Performed By: #### C BC #### [facility] [address] [place] [address] Dr. Brandon Gilmore Basophils/100 WBC (Bld) 0.8 % Normal 0.2-2.0 [facility] Comment on above: Performed By: #### C BC #### [facility] [address] [place] [address] Dr. Brandon Gilmore EO # 0.1 103/ul Normal 0.0-0.7 [facility] Comment on above: Performed By: #### C BC #### [facility] [address] [place] [address] Dr. Brandon Gilmore Eosinophils/100 WBC (Bld) 1.7 % Normal 0.9-7.0 [facility] Comment on above: Performed By: #### C BC #### [facility] [address] [place] [address] Dr. Brandon Gilmore Erythrocyte distribution width (RBC) [Ratio] 14.0 % Normal 11.0-15.0 [facility] Comment on above: Performed By: #### C BC #### [facility] [address] [place] [address] Dr. Brandon Gilmore Hematocrit (Bld) [Volume fraction] 42.7 % Normal 42.0-54.0 [facility] Comment on above: Performed By: #### C BC #### [facility] [address] [place] [address] Dr. Brandon Gilmore Hemoglobin (Bld) [Mass/Vol] 14.9 g/dL Normal 14.0-18.0 [facility] Comment on above: Performed By: #### C BC #### [facility] [address] [place] [address] Dr. Brandon Gilmore IG # 0.02 10e3/ul Normal 0.00-0.03 [facility] Comment on above: Performed By: #### C BC #### [facility] [address] [place] [address] Dr. Brandon Gilmore IG % 0.3 % Normal 0.0-0.5 [facility] Comment on above: Performed By: #### C BC #### [facility] [address] [place] [address] Dr. Brandon Gilmore LYMPH # 1.9 103/ul Normal 1.2-3.8 [facility] Comment on above: Performed By: #### C BC #### [facility] [address] [place] [address] Dr. Brandon Gilmore Lymphocytes/100 WBC (Bld) 25.0 % Normal 20.5-60.0 [facility] Comment on above: Performed By: #### C BC #### [facility] [address] [place] [address] Dr. Brandon Gilmore MANUAL DIFF REQ NO Normal [facility] Comment on above: Performed By: #### C BC #### [facility] [address] [place] [address] Dr. Brandon Gilmore MCH (RBC) [Entitic mass] 29.1 pg Normal 25.9-34.0 [facility] Comment on above: Performed By: #### C BC #### [facility] [address] [place] [address] Dr. Brandon Gilmore MCHC (RBC) [Mass/Vol] 34.9 g/dL Normal 29.9-35.2 [facility] Comment on above: Performed By: #### C BC #### [facility] [address] [place] [address] Dr. Brandon Gilmore MCV (RBC) [Entitic vol] 83.4 fL Normal 80.0-94.0 [facility] Comment on above: Performed By: #### C BC #### [facility] [address] [place] [address] Dr. Brandon Gilmore MONO # 0.5 103/ul Normal 0.3-0.8 [facility] Comment on above: Performed By: #### C BC #### [facility] [address] [place] [address] Dr. Brandon Gilmore Monocytes/100 WBC (Bld) 6.1 % Normal 1.7-12.0 [facility] Comment on above: Performed By: #### C BC #### [facility] [address] [place] [address] Dr. Brandon Gilmore NEUT # 5.1 103/ul Normal 1.4-6.5 [facility] Comment on above: Performed By: #### C BC #### [facility] [address] [place] [address] Dr. Brandon Gilmore Neutrophils/100 WBC (Bld) 66.1 % Normal 43.0-75.0 [facility] Comment on above: Performed By: #### C BC #### [facility] [address] [place] [address] Dr. Brandon Gilmore Platelet mean volume (Bld) [Entitic vol] 9.7 fL Normal 9.5-13.5 [facility] Comment on above: Performed By: #### C BC #### [facility] [address] [place] [address] Dr. Brandon Gilmore PLT 195 103/ul Normal 150-450 [facility] Comment on above: Performed By: #### C BC #### [facility] [address] [place] [address] Dr. Brandon Gilmore RBC 5.12 106/ul Normal 4.70-6.10 [facility] Comment on above: Performed By: #### C BC #### [facility] [address] [place] [address] Dr. Brandon Gilmore WBC 7.7 103/ul Normal 4.0-11.0 [facility] Comment on above: Performed By: #### C BC #### [facility] [address] [place] [address] Dr. Brandon Gilmore GLYCOHEMOGLOBIN A1Con 2022 ADA RECOMMENDATION SEE BELOW Normal The [facility] Comment on above: Result Comment: ADA RECOMMENDED LIMIT 4.0 - 6.0 ADA THERAPEUTIC TARGET < 7.0 ACTION SUGGESTED > 7.0 Performed By: #### A 1C #### [facility] [address] [place] [address] Dr. Brandon Gilmore Glucose [Mass/Vol] 137 mg/dL Normal [facility] Comment on above: Performed By: #### A 1C #### [facility] [address] [address] [address] Brandon Gilmore HbA1c (Bld) [Mass fraction] 6.4 % Critically high 4.5-6.2 [facility] Comment on above: Performed By: #### A 1C #### [facility] [address] [address] [address] Brandon Gilmore LIPID PROFILEon 10-08-2022 CHOL-HDL RATIO NORM SEE BELOW Normal [facility] Comment on above: Result Comment: 3.3 - 4.4 LOW RISK 4.4 - 7.1 AVERAGE RISK 7.1 - 11.0 MODERATE RISK >11.0 HIGH RISK Performed By: #### L IPID, CMP #### [facility] [address] [address] [address] Brandon Gilmore Cholesterol [Mass/Vol] 196 mg/dL Normal <=200 [facility] Comment on above: Performed By: #### L IPID, CMP #### [facility] [address] [address] [address] Brandon Gilmore Cholesterol in HDL [Mass/Vol] 48 mg/dL Normal 40-60 [facility] Comment on above: Performed By: #### L IPID, CMP #### [facility] [address] [address] [address] Brandon Gilmore Cholesterol in LDL [Mass/Vol] 101.8 mg/dL Normal [facility] Comment on above: Performed By: #### L IPID, CMP #### [facility] [address] [address] [address] Brandon Gilmore Cholesterol.total/Ch olesterol in HDL [Mass ratio] 4.1 {ratio} Normal [facility] Comment on above: Performed By: #### L IPID, CMP #### [facility] [address] [address] [address] Brandon Gilmore HDL NORMAL > or = 60 mg/dl - LOW CARDIOVASCULAR RISK <40 mg/dl - HIGH CARDIOVASCULAR RISK Normal [facility] Comment on above: Performed By: #### L IPID, CMP #### [facility] [address] [address] [address] Brandon Gilmore LDL CALC NORMAL SEE BELOW Normal [facility] Comment on above: Result Comment: <100 mg/dl OPTIMAL 100 - 129 mg/dl NEAR OR ABOVE OPTIMAL 130 - 159 mg/dl BORDERLINE HIGH 160 - 189 mg/dl HIGH >190 mg/dl VERY HIGH Performed By: #### L IPID, CMP #### [facility] [address] [address] [address] Brandon Gilmore Triglyceride [Mass/Vol] 231 mg/dL Critically high <=150 [facility] Comment on above: Performed By: #### L IPID, CMP #### [facility] [address] [address] [address] Brandon Gilmore VLDL CALC 46.2 mg/dL Normal [facility] Comment on above: Performed By: #### L IPID, CMP #### [facility] [address] [address] [address] Brandon Gilmore MICROALB CREAT RATIO RANDOMo n 10-08-2022 mALB 1.7 mg/L Normal <=30.0 [facility] Comment on above: Performed By: #### M CRR #### [facility] [address] [address] [address] Brandon Gilmore MALB CR RATIO 20.6 mg/g Normal 0.0-29.9 [facility] Comment on above: Performed By: #### M CRR #### [facility] [address] [address] [address] Brandon Gilmore MALB CR RATIO RANGE SEE BELOW Normal [facility] Comment on above: Result Comment: NO M ICROALBUMINURIA 0-29 MG/G CLINICAL MICROALBUMINURIA 30-300 MG/G MACROALBUMINURIA >300 MG/G Performed By: #### M CRR #### [facility] [address] [address] [address] Brandon Gilmore URINE CREAT 82.51 mg/dL Normal 20.00-300.00 [facility] Comment on above: Performed By: #### M CRR #### [facility] [address] [address] [address] Brandon Gilmore PROF 14(COMP METB)on 023 Albumin [Mass/Vol] 4.0 g/dL Normal 3.4-5.0 [facility] Comment on above: Performed By: #### L IPID, CMP #### [facility] [address] [address] [address] Brandon Gilmore Albumin/Globulin [Mass ratio] 1.2 {ratio} Normal [facility] Comment on above: Performed By: #### L IPID, CMP #### [facility] [address] [place] [address] Dr. Brandon Gilmore ALP [Catalytic activity/Vol] 90 U/L Normal 46-116 [facility] Comment on above: Performed By: #### L IPID, CMP #### [facility] [address] [place] [address] Dr. Brandon Gilmore ALT [Catalytic activity/Vol] 25 U/L Normal 16-63 [facility] Comment on above: Performed By: #### L IPID, CMP #### [facility] [address] [address] [address] Brandon Gilmore Anion gap [Moles/Vol] 10.9 mmol/L Normal [facility] Comment on above: Performed By: #### L IPID, CMP #### [facility] [address] [address] [address] Brandon Gilmore AST [Catalytic activity/Vol] 17 U/L Normal 15-37 [facility] Comment on above: Performed By: #### L IPID, CMP #### [facility] [address] [address] [address] Brandon Gilmore Bilirubin [Mass/Vol] 0.4 mg/dL Normal 0.2-1.0 [facility] Comment on above: Performed By: #### L IPID, CMP #### [facility] [address] [place] [address] Dr. Brandon Gilmore Calcium [Mass/Vol] 10.1 mg/dL Normal 8.5-10.1 [facility] Comment on above: Performed By: #### L IPID, CMP #### [facility] [address] [place] [address] Dr. Brandon Gilmore Chloride [Moles/Vol] 106 mmol/L Normal 98-107 [facility] Comment on above: Performed By: #### L IPID, CMP #### [facility] [address] [place] [address] Dr. Brandon Gilmore CO2 [Moles/Vol] 29.4 mmol/L Normal 21.0-32.0 [facility] Comment on above: Performed By: #### L IPID, CMP #### [facility] [address] [place] [address] Dr. Brandon Gilmore Creatinine [Mass/Vol] 0.78 mg/dL Normal 0.70-1.30 [facility] Comment on above: Performed By: #### L IPID, CMP #### [facility] [address] [place] [address] Dr. Brandon Gilmore EGFR-AF KITTITIAN >60 Normal >=60 [facility] Comment on above: Performed By: #### L IPID, CMP #### [facility] [address] [place] [address] Dr. Brandon Gilmore EGFR-NON AF KITTITIAN >60 Normal >=60 [facility] Comment on above: Performed By: #### L IPID, CMP #### [facility] [address] [place] [address] Dr. Brandon Gilmore Globulin (S) [Mass/Vol] 3.3 g/dL Normal [facility] Comment on above: Performed By: #### L IPID, CMP #### [facility] [address] [place] [address] Dr. Brandon Gilmore Glucose [Mass/Vol] 213 mg/dL Critically high 74-106 [facility] Comment on above: Performed By: #### L IPID, CMP #### [facility] [address] [place] [address] Dr. Brandon Gilmore Potassium [Moles/Vol] 4.3 mmol/L Normal 3.5-5.1 [facility] Comment on above: Performed By: #### L IPID, CMP #### [facility] [address] [place] [address] Dr. Brandon Gilmore Protein [Mass/Vol] 7.3 g/dL Normal 6.4-8.2 [facility] Comment on above: Performed By: #### L IPID, CMP #### [facility] [address] [place] [address] Dr. Brandon Gilmore Sodium [Moles/Vol] 142 mmol/L Normal 136-145 [facility] Comment on above: Performed By: #### L IPID, CMP #### [facility] [address] [place] [address] Dr. Brandon Gilmore Urea nitrogen [Mass/Vol] 14.0 mg/dL Normal 7.0-18.0 [facility] Comment on above: Performed By: #### L IPID, CMP #### [facility] [address] [place] [address] Dr. Brandon Gilmore Urea nitrogen/Creatinine [Mass ratio] 17.9 mg/mg Normal [facility] Comment on above: Performed By: #### L IPID, CMP #### [facility] [address] [place] [address] Dr. Brandon Gilmore Quick Fluon 07-12-2021 FLUAV Ab CF (S) [Titer] Negative [employer] [facility] Other FLUBV Ab CF (S) [Titer] Negative [facility] [employer] Other Vital Signs Date Time Vital Sign Value Performing Clinician Facility 08-27-2023 15:27-0500 Body height 167.6 cm Shaikh Leanna WYNNE Work Phone: [facility] 08-27-2023 15:27-0500 Body mass index (BMI) [Ratio] 52.62 kg/m2 Shaikh Leanna WYNNE Work Phone: [facility] 08-27-2023 15:27-0500 Body temperature 96.8 [degF] Shaikh Leanna WYNNE Work Phone: [facility] 08-27-2023 15:27-0500 Body weight 147.87 kg Shaikh Leanna WYNNE Work Phone: [facility] 08-27-2023 15:27-0500 Diastolic blood pressure 90 mm[Hg] Shaikh Leanna WYNNE Work Phone: [facility] 08-27-2023 15:27-0500 Heart rate 98 /min Shaikh Leanna WYNNE Work Phone: [facility] 08-27-2023 15:27-0500 SaO2% (BldA) [Mass fraction] 95 % Shaikh Leanna WYNNE Work Phone: [facility] 08-27-2023 15:27-0500 Systolic blood pressure 126 mm[Hg] Shaikh Leanna WYNNE Work Phone: [facility] 03-09-2023 18:05-0400 Body height 167.64 cm Ban Heaton Other [facility] Other 03-09-2023 18:05-0400 Body mass index (BMI) [Ratio] 52.45 kg/m2 Ban Heaton Other [facility] Other 03-09-2023 18:05-0400 Body temperature 97.5 [degF] Ban Heaton Other [facility] Other 03-09-2023 18:05-0400 Body weight 147.42 kg Ban Heaton Other [facility] Other 03-09-2023 18:05-0400 Diastolic blood pressure 83 mm[Hg] Ban Heaton Other [facility] Other 03-09-2023 18:05-0400 Respiratory rate 18 /min Ban Heaton Other [facility] Other 03-09-2023 18:05-0400 SaO2% (BldA) [Mass fraction] 97 % Ban Heaton Other [facility] Other 03-09-2023 18:05-0400 Systolic blood pressure 144 mm[Hg] Ban Bustilloley Other [facility] Other 07-12-2021 12:30-0500 Body height 167.64 cm Ema Mitchell Other [facility] Other 07-12-2021 12:30-0500 Body mass index (BMI) [Ratio] 51.64 kg/m2 Ema Barkermond Other [facility] Other 07-12-2021 12:30-0500 Body temperature 98.3 [degF] Ema Mitchell Other [facility] Other 07-12-2021 12:30-0500 Body weight 145.15 kg Ema Mitchell Other [facility] Other 07-12-2021 12:30-0500 SaO2% (BldA) [Mass fraction] 92 % Ema Mitchell Other [facility] Other Encounters Encounter Date Encounter Type Care [...] 03-09-2023 End: 03-09-2023 ambulatory Ban Heaton Other [facility] Other Start: 03-09-2023 Office outpatient vi sit 15 minutes Ban Heaton [facility] Start: 10-08-2022 End: 10-09-2022 ambulatory Shadi LEANNA Facility:[facility] Start: 11-21-2021 ambulatory Shadi LEANNA Facilit y:[facility] Start: 07-12-2021 (URG) Urgent Care Visit Ema veliz [facility] Start: 07-12-2021 End: 07-12-2021 ambulatory Ema Mitchell Other [facility] Other Procedures Date Procedure Procedure Detail Performing Clinician Start: 02-16-2020 Colonoscopy Shaikh Natan mayer MD Work Phone: Plan of Treatment Date Care Activity Detail Author Start: 02-15-2030 Screening for malign ant neoplasm of colon [facility] Start: 06-26-2025 Glaucoma screening Diabetes: R etinopathy Screening [facility] Start: 05-27-2024 Urine screening for protein Diabetes: Urine Protein Screening [facility] Start: 01-24-2024 Influenza vaccination Influenza Vacc ine (#1) [facility] Comment on above: Postponed from 03/27 (Patient Refused) Start: 08-27-2023 End: 08-27-2023 Patient encounter procedure 08/27/2023 3:30 PM EST Office Visit [facility] [address] [place] [id number] Shaikh Ram MD [address] [place] [id number] Arrived [facility] Comment on above: Arrived Start: 08-27-2023 End: 08-27-2024 ECG 12 lead ECG 12 lead ECG Routine IQBAL (dyspnea on exertion) Expected: 08/27/2023 (Approximate), Expires: 08/27/2024 [facility] Work Phone: Comment on above: Expected: 08/27/2023 (Approximate), Expires: 08/27/2024 Start: 08-27-2023 Hemoglobin A1c measurement Diabetes: Hemoglobin A1C [facility] Start: 08-27-2023 End: 08-27-2025 NM Heart Perfusion W adenosine and W radionuclide IV STRESS NUCLEAR MEDICINE [facility] Cardiac Nuclear Medicine Routine IQBAL (dyspnea on exertion) Expected: 08/27/2023 (Approximate), Expires: 08/27/2025 [facility] Comment on above: Expected: 08/27/2023 (Approximate), Expires: 08/27/2025 Start: 03-27-2023 Influenza vaccination Influenza Vacc ine (#1) [facility] Start: 1975 Urine screening for protein Diabetes: Urine Protein Screening [facility] Start: 1966 Glaucoma screening Diabetes: R etinopathy Screening [facility] Start: 1956 Hemoglobin A1c measurement Diabetes: Hemoglobin A1C [facility] Start: 1955 Medicare Annual Well ness (AWV) Medicare Annual Wellness (AWV) [facility] Start: 1956 Screening for malign ant neoplasm of colon [facility] Immunizations Immunization Date Immunization Notes Care Provider Fa coni 03-09-2023 tetanus toxoid, reduced diphtheria toxoid, and acellular pertussis vaccine, adsorbed Ban Heaton Other [facility] Other 03-09-2023 tetanus and diphther ia toxoids, adsorbed, preservative free, for adult use (5 Lf of tetanus toxoid and 2 Lf of diphtheria toxoid) Shaikh Leanna WYNNE Work Phone: [facility] 05-22-2022 Pneumococcal Conjuga te PCV 20 Shaikh Leanna WYNNE Work Phone: [facility] 05-21-2022 Influenza, High-dose Seasonal, Quadrivalent, Preservative Free Shaikh Leanna WYNNE Work Phone: [facility] 05-21-2022 influenza virus vaccine, unspecified formulation Shaikh Leanna WYNNE Work Phone: [facility] 06-05-2021 influenza, injectabl e, quadrivalent, preservative free Shaikh Leanna WYNNE Work Phone: [facility] 04-25-2020 influenza, injectabl e, quadrivalent, preservative free Shaikh Leanna WYNNE Work Phone: [facility] 07-13-2019 influenza, injectabl e, quadrivalent, preservative free Shaikh Leanna WYNNE Work Phone: [facility] 06-07-2018 influenza, injectabl e, quadrivalent, preservative free Shaikh Leanna WYNNE Work Phone: [facility] 05-17-2017 influenza, injectabl e, quadrivalent, preservative free Shaikh Leanna WYNNE Work Phone: [facility] 05-05-2017 influenza, injectabl e, quadrivalent, preservative free Shaikh Leanna WYNNE Work Phone: [facility] Payers Date Payer Category Payer Medicare GENERIC MEDICARE ADVANTAGE GENERIC MEDICARE ADVANTAGE [id number] 2023-[facility] [phone] [place] [id number] 2022 Unknown [employer] [id number] 2022-Present [address] [place] [address] [id number] 2020 Unknown [id number] 1959 Self-pay [id number] 1955 Unknown [id number] 1956 Unknown [id number] 1956 Unknown [id number] 1956 Unknown [id number] Social History Date Type Detail Facility Unknown if ever smoked [facility] Other Start: 07-09-2023 End: 08-27-2023 Sex Assigned At [facility] Other Start: 07-09-2023 End: 08-27-2023 Tobacco smoking [...] and has poor insight. He also saw building services engineer before to help manage his meals, improve [...] presents for Travel Consult. Patient travelling to [place] next week via airplane to attend his [...] every 12 (twelve) hours Continuous Blood Gluc Quality Liaison ([employer]) device USE DIRECTED to test BLOOD SUGAR [...] List Items Addressed This Visit Primary hypertension ([facility]) BP well controlled. On average less than [...] complication, without long-term current use of insulin ([facility]) Last A1C 7.1 06/18. On metformin and trulicity. Non compliant with diet and has poor insight. He also saw building services engineer before to help manage his meals, improve [...] months (around 11/25/2023). documented in this encounter [facility] Evaluation note 03-09-2023 Note Date & [...] hours ago. Areas cleaned thoroughly by medical affairs director. Triple antibiotic ointment applied to area, covered [...] office. Patient verbalized understanding of treatment plan. Kanjoya Other Evaluation note 07-12-2021 Note Date & [...] Patient care instructions given in writting by [facility] document. Kanjoya Other Evaluation note Note Date & Type Note Facility Evaluation note Diagnosis IQBAL (dyspnea on exertion)- Primary Other dyspnea and respiratory abnormality JEFF (obstructive sleep apnea) Obstructive sleep apnea (adult) (pediatric) Primary hypertension ([facility]) Unspecified essential hypertension Type 2 diabetes mellitus without complication, without long-term current use of insulin ([facility]) documented in this encounter [facility] Evaluation note Note Date & Type Note Facility Evaluation note Diagnosis H/O seasonal allergies- Primary documented in this encounter [facility] History general Narrative - Reported Note Date & Type Note Facility History general Narrative - Reported Type Medical History Hypertension Medical History hyperlipidemia Medical History type II diabetes [facility] Other Summary Purpose Family History No Family History Records FoundNo Family History Records Found Advance Directives No Advanced Directives Records FoundNo Advanced Directives Records Found Reason for Referral Specialty Diagnoses / Procedures Referred By Contac t Referred To Contact Diagnoses IQBAL (dyspnea on exertion) Procedures STRESS NUCLEAR MEDICINE Shaikh Solorio MD [address] [place] [address] [facility] [place] [facility] [address] [place] [address] Phone: [phone] Referral ID Status Reason Start Date Expiration Date V isits Requested Visits Authorized [id number] Pending Review 08/27/2023 02/23/2024 3 3 Additional Source Comments REASON FOR VISIT (unrecogniz ed section and content) Reason Comments Travel Consult (unrecognized sect ion and content) No Status Records FoundNo Status Records Found INFORMATION SOURCE (unrecogn ized section and content) DATE CREATED AUTHOR 10/17/2022 [facility] DATE CREATED AUTHOR AUTHOR'S ORGANIZ ATION 08/29/2023 [facility] [employer] Care Teams (unrecognized sec tion and content) [facility]izer Relationship Specialty Start Date End Date Shaikh Ram MD [address] [place] [phone] PCP - General Internal Medicine 08/26/23 [facility] Relationship Specialty Start Date End Date Shaikh Ram MD [address] [place] [phone] PCP - General Internal Medicine 08/26/23 [facility] Relationship Specialty Start Date End Date Shaikh Ram MD [address] [place] [phone] PCP - General Internal Medicine 08/26/23 FOR [...] BE BASED ON THE PRIMARY CLINICAL RECORDS. [employer] provides no warranty or guarantee of the accuracy or completeness of information in this document.
[2023-10-07] MEDS: REGADENOSON 0.4 MG/5 ML SYRINGE 0.400000000000000022 MG IV (08:22)
--- NOTE | 2023-10-08 07:49 | P.STRESS_ITS ---
Stress Test Stress Test Requesting physician: Shaikh Leanna Procedure: Lexiscan Cardiolite stress test General Information: Reason for Stress Test: Dyspnea Cardiac History and Risk Factors: HTN. Mother has history of stents. Resting 12 - Lead Electrocardiogram: Rate & rhythm: Normal at a rate of 80. [place]: Normal T-waves: Normal ST-segments: Normal Stress Test: Protocol: Salvador protocol was initiated, but due to inability to ambulate on the treadmill, it was therefore canceled.? Testing was changed to Lexiscan protocol, with injection of 0.4mg Lexiscan IV push followed by Cardiolite. Blood pressure: Initial: 156/84, Maximum: 170/96 Rate & rhythm: Patient remained in sinus rhythm during the exercise and recovery portions of the study.? The maximum heart rate was 96, which was 62% of the maximum predicted heart rate 153. PVCs were noted ST-segments & T-waves: There were no T-wave changes and ni ST-segment changes when compared to the baseline EKG. Patient response/symptoms: There were no symptoms similar to the chief complaint. Interpretation: Normal Lexiscan stress test without electrocardiographical evidence of ischemia. Asymptomatic of chief complaint. Cardiolite imaging interpretation will be reported separately. Clinical correlation required.?
== END 2023-10-07 07:22 | disposition home or self-care (01) ==
LOC: CARD 07:21
PROVIDERS: PCP Internal Medicine; Visit Provider Internal Medicine
DX: R06.00 Dyspnea, unspecified (principal)
CPT/HCPCS: 93017; J2785

== ENCOUNTER 2024-03-02 09:24 | Outpatient (OUT) | payer OTHER, SELFPAY ==
--- OUTSIDE RECORDS SUMMARY | 2024-03-02 09:32 | XMS_ITS | CCD ---
Author Organization [facility] [employer] [facility] Care Team Providers Care Smart Energy Specialist Name Role Phone Ema Mitchell Unavailable SHAIKH Shadi RAM Attending Unavailable SHAIKH Shadi RAM Admitting Unavailable SHAIKH Shadi RAM Primary Care Unavailable SHAIKH Shadi RAM Admitting Unavailable SHAIKH Shadi RAM Primary Care Unavailable SHAIKH Shadi RAM Consulting Unavailable SHAIKH Shadi RAM Attending Unavailable Ban Heaton Unavailable Shaikh Ram MD Primary Care Provider [phone] SHAIKH RAM Attending Unavailable SHAIKH RAM Attending Unavailable STEWART FLYNN Attending Unavailable RODRICK PRASAD Attending Unavailable SHAIKH RAM Referring Unavailable RODRICK PRASAD Referring Unavailable Medications Current Medications Medication Drug Class(es) [...] 7 days Feb, Active Continuous Blood Gluc Account Group Supervisor ([employer] [place]) device (3 sources) Start: 2022 Continuous Blood Gluc Account Group Supervisor ([employer] [place]) device USE DIRECTED to test BLOOD SUGAR [...] Active Start: 08-13-2023 take 1 capsule by [facility] once daily DULoxetine (Cymbalta) [address] [...] 10-08-2022 BASO # 0.1 103/ul Normal 0.0-0.1 [facility] Comment on above: Performed By: #### C BC #### [facility] [address] [address] [address] Brandon Gilmore Basophils/100 WBC (Bld) 0.8 % Normal 0.2-2.0 [facility] Comment on above: Performed By: #### C BC #### [facility] [address] [address] [address] Brandon Gilmore EO # 0.1 103/ul Normal 0.0-0.7 [facility] Comment on above: Performed By: #### C BC #### [facility] [address] [address] [address] Brandon Gilmore Eosinophils/100 WBC (Bld) 1.7 % Normal 0.9-7.0 [facility] Comment on above: Performed By: #### C BC #### [facility] [address] [place] [address] Dr. Brandon Gilmore Erythrocyte distribution width (RBC) [Ratio] 14.0 % Normal 11.0-15.0 [facility] Comment on above: Performed By: #### C BC #### [facility] [address] [address] [address] Brandon Gilmore Hematocrit (Bld) [Volume fraction] 42.7 % Normal 42.0-54.0 [facility] Comment on above: Performed By: #### C BC #### [facility] [address] [address] [address] Brandon Gilmore Hemoglobin (Bld) [Mass/Vol] 14.9 g/dL Normal 14.0-18.0 [facility] Comment on above: Performed By: #### C BC #### [facility] [address] [address] [address] Brandon Gilmore IG # 0.02 10e3/ul Normal 0.00-0.03 [facility] Comment on above: Performed By: #### C BC #### [facility] [address] [place] [address] Dr. Branodn Gilmore IG % 0.3 % Normal 0.0-0.5 [facility] Comment on above: Performed By: #### C BC #### [facility] [address] [place] [address] Dr. Brandon Gilmore LYMPH # 1.9 103/ul Normal 1.2-3.8 [facility] Comment on above: Performed By: #### C BC #### [facility] [address] [place] [address] Dr. Brandon Gilmore Lymphocytes/100 WBC (Bld) 25.0 % Normal 20.5-60.0 [facility] Comment on above: Performed By: #### C BC #### [facility] [address] [place] [address] Dr. Brandon Gilmore MANUAL DIFF REQ NO Normal [facility] Comment on above: Performed By: #### C BC #### [facility] [address] [place] [address] Dr. Brandon Gilmore MCH (RBC) [Entitic mass] 29.1 pg Normal 25.9-34.0 [facility] Comment on above: Performed By: #### C BC #### [facility] [address] [place] [address] Dr. Brandon Gilmore MCHC (RBC) [Mass/Vol] 34.9 g/dL Normal 29.9-35.2 [facility] Comment on above: Performed By: #### C BC #### [facility] [address] [place] [address] Dr. Brandon Gilmore MCV (RBC) [Entitic vol] 83.4 fL Normal 80.0-94.0 [facility] Comment on above: Performed By: #### C BC #### [facility] [address] [place] [address] Dr. Brandon Gilmore MONO # 0.5 103/ul Normal 0.3-0.8 [facility] Comment on above: Performed By: #### C BC #### [facility] [address] [place] [address] Dr. Brandon Gilmore Monocytes/100 WBC (Bld) 6.1 % Normal 1.7-12.0 [facility] Comment on above: Performed By: #### C BC #### [facility] [address] [place] [address] Dr. Brandon Gilmore NEUT # 5.1 103/ul Normal 1.4-6.5 [facility] Comment on above: Performed By: #### C BC #### [facility] [address] [place] [address] Dr. Brandon Gilmore Neutrophils/100 WBC (Bld) 66.1 % Normal 43.0-75.0 [facility] Comment on above: Performed By: #### C BC #### [facility] [address] [place] [address] Dr. Brandon Gilmore Platelet mean volume (Bld) [Entitic vol] 9.7 fL Normal 9.5-13.5 [facility] Comment on above: Performed By: #### C BC #### [facility] [address] [place] [address] Dr. Brandon Gilmroe PLT 195 103/ul Normal 150-450 [facility] Comment on above: Performed By: #### C BC #### [facility] [address] [place] [address] Dr. Brandon Gilmore RBC 5.12 106/ul Normal 4.70-6.10 [facility] Comment on above: Performed By: #### C BC #### [facility] [address] [place] [address] Dr. Brandon Gilmore WBC 7.7 103/ul Normal 4.0-11.0 [facility] Comment on above: Performed By: #### C BC #### [facility] [address] [place] [address] Dr. Brandon Gilmore GLYCOHEMOGLOBIN A1Con 2022 ADA RECOMMENDATION SEE BELOW Normal [facility] Comment on above: Result Comment: ADA RECOMMENDED LIMIT 4.0 - 6.0 ADA THERAPEUTIC TARGET < 7.0 ACTION SUGGESTED > 7.0 Performed By: #### A 1C #### [facility] [address] [place] [address] Dr. Brandon Gilmore Glucose [Mass/Vol] 137 mg/dL Normal [facility] Comment on above: Performed By: #### A 1C #### [facility] [address] [address] [address] Brandon Gilmore HbA1c (Bld) [Mass fraction] 6.4 % Critically high 4.5-6.2 [facility] Comment on above: Performed By: #### A 1C #### [facility] [address] [address] [address] Brandon Gilmore LIPID PROFILEon 10-08-2022 CHOL-HDL RATIO NORM SEE BELOW Normal [facility] Comment on above: Result Comment: 3.3 - 4.4 LOW RISK 4.4 - 7.1 AVERAGE RISK 7.1 - 11.0 MODERATE RISK >11.0 HIGH RISK Performed By: #### L IPID, CMP #### [facility] [address] [address] [address] Brandon Gilmore Cholesterol [Mass/Vol] 196 mg/dL Normal <=200 [facility] Comment on above: Performed By: #### L IPID, CMP #### [facility] [address] [address] [address] Brandon Gilmore Cholesterol in HDL [Mass/Vol] 48 mg/dL Normal 40-60 [facility] Comment on above: Performed By: #### L IPID, CMP #### [facility] [address] [address] [address] Brandon Gilmore Cholesterol in LDL [Mass/Vol] 101.8 mg/dL Normal [facility] Comment on above: Performed By: #### L IPID, CMP #### [facility] [address] [address] [address] Brandon Gilmore Cholesterol.total/Ch olesterol in HDL [Mass ratio] 4.1 {ratio} Normal [facility] Comment on above: Performed By: #### L IPID, CMP #### [facility] [address] [address] [address] Brandon Gilmore HDL NORMAL > or = 60 mg/dl - LOW CARDIOVASCULAR RISK <40 mg/dl - HIGH CARDIOVASCULAR RISK Normal [facility] Comment on above: Performed By: #### L IPID, CMP #### [facility] [address] [address] [address] Brandon Gilmore LDL CALC NORMAL SEE BELOW Normal [facility] Comment on above: Result Comment: <100 mg/dl OPTIMAL 100 - 129 mg/dl NEAR OR ABOVE OPTIMAL 130 - 159 mg/dl BORDERLINE HIGH 160 - 189 mg/dl HIGH >190 mg/dl VERY HIGH Performed By: #### L IPID, CMP #### [facility] [address] [address] [address] Brandon Gilmore Triglyceride [Mass/Vol] 231 mg/dL Critically high <=150 [facility] Comment on above: Performed By: #### L IPID, CMP #### [facility] [address] [address] [address] Brandon Gilmore VLDL CALC 46.2 mg/dL Normal [facility] Comment on above: Performed By: #### L IPID, CMP #### [facility] [address] [address] [address] Brandon Gilmore MICROALB CREAT RATIO RANDOMo n 10-08-2022 mALB 1.7 mg/L Normal <=30.0 [facility] Comment on above: Performed By: #### M CRR #### [facility] [address] [address] [address] Brandon Gilmore MALB CR RATIO 20.6 mg/g Normal 0.0-29.9 [facility] Comment on above: Performed By: #### M CRR #### [facility] [address] [address] [address] Brandon Gilmore MALB CR RATIO RANGE SEE BELOW Normal [facility] Comment on above: Result Comment: NO M ICROALBUMINURIA 0-29 MG/G CLINICAL MICROALBUMINURIA 30-300 MG/G MACROALBUMINURIA >300 MG/G Performed By: #### M CRR #### [facility] [address] [address] [address] Brandon Gilmore URINE CREAT 82.51 mg/dL Normal 20.00-300.00 [facility] Comment on above: Performed By: #### M CRR #### [facility] [address] [address] [address] Brandon Gilmore PROF 14(COMP METB)on 023 Albumin [Mass/Vol] 4.0 g/dL Normal 3.4-5.0 [facility] Comment on above: Performed By: #### L IPID, CMP #### [facility] [address] [address] [address] Brandon Gilmore Albumin/Globulin [Mass ratio] 1.2 {ratio} Normal [facility] Comment on above: Performed By: #### L IPID, CMP #### [facility] [address] [place] [address] Dr. Brandon Gilmore ALP [Catalytic activity/Vol] 90 U/L Normal 46-116 [facility] Comment on above: Performed By: #### L IPID, CMP #### [facility] [address] [place] [address] Dr. Brandon Gilmore ALT [Catalytic activity/Vol] 25 U/L Normal 16-63 [facility] Comment on above: Performed By: #### L IPID, CMP #### [facility] [address] [place] [address] Dr. Brandon Gilmore Anion gap [Moles/Vol] 10.9 mmol/L Normal [facility] Comment on above: Performed By: #### L IPID, CMP #### [facility] [address] [address] [address] Brandon Gilmore AST [Catalytic activity/Vol] 17 U/L Normal 15-37 [facility] Comment on above: Performed By: #### L IPID, CMP #### [facility] [address] [address] [address] Brandon Gilmore Bilirubin [Mass/Vol] 0.4 mg/dL Normal 0.2-1.0 [facility] Comment on above: Performed By: #### L IPID, CMP #### [facility] [address] [address] [address] Brandon Gilmore Calcium [Mass/Vol] 10.1 mg/dL Normal 8.5-10.1 [facility] Comment on above: Performed By: #### L IPID, CMP #### [facility] [address] [place] [address] Dr. Brandon Gilmore Chloride [Moles/Vol] 106 mmol/L Normal 98-107 [facility] Comment on above: Performed By: #### L IPID, CMP #### [facility] [address] [place] [address] Dr. Brandon Gilmore CO2 [Moles/Vol] 29.4 mmol/L Normal 21.0-32.0 [facility] Comment on above: Performed By: #### L IPID, CMP #### [facility] [address] [place] [address] Dr. Brandon Gilmore Creatinine [Mass/Vol] 0.78 mg/dL Normal 0.70-1.30 [facility] Comment on above: Performed By: #### L IPID, CMP #### [facility] [address] [place] [address] Dr. Brandon Gilmore EGFR-AF DJIBOUTIAN >60 Normal >=60 [facility] Comment on above: Performed By: #### L IPID, CMP #### [facility] [address] [place] [address] Dr. Brandon Gilmore EGFR-NON AF DJIBOUTIAN >60 Normal >=60 [facility] Comment on above: Performed By: #### L IPID, CMP #### [facility] [address] [place] [address] Dr. Brandon Gilmore Globulin (S) [Mass/Vol] 3.3 g/dL Normal [facility] Comment on above: Performed By: #### L IPID, CMP #### [facility] [address] [place] [address] Dr. Brandon Gilmore Glucose [Mass/Vol] 213 mg/dL Critically high 74-106 [facility] Comment on above: Performed By: #### L IPID, CMP #### [facility] [address] [place] [address] Dr. Brandon Gilmore Potassium [Moles/Vol] 4.3 mmol/L Normal 3.5-5.1 [facility] Comment on above: Performed By: #### L IPID, CMP #### [facility] [address] [place] [address] Dr. Brandon Gilmore Protein [Mass/Vol] 7.3 g/dL Normal 6.4-8.2 [facility] Comment on above: Performed By: #### L IPID, CMP #### [facility] [address] [place] [address] Dr. Brandon Gilmore Sodium [Moles/Vol] 142 mmol/L Normal 136-145 [facility] Comment on above: Performed By: #### L IPID, CMP #### [facility] [address] [place] [address] Dr. Brandon Gilmore Urea nitrogen [Mass/Vol] 14.0 mg/dL Normal 7.0-18.0 [facility] Comment on above: Performed By: #### L IPID, CMP #### [facility] [address] [place] [address] Dr. Brandon Gilmore Urea nitrogen/Creatinine [Mass ratio] 17.9 mg/mg Normal [facility] Comment on above: Performed By: #### L IPID, CMP #### [facility] [address] [place] [address] Dr. Brandon Gilmore Quick Fluon 07-12-2021 FLUAV Ab CF (S) [Titer] Negative Angella [facility] [employer] Other FLUBV Ab CF (S) [Titer] Negative Angella Joy [facility] [employer] Other Vital Signs Date Time Vital Sign Value Performing Clinician Facility 08-27-2023 15:27-0500 Body height 167.6 cm Shaikh Leanna WYNNE Work Phone: [facility] 08-27-2023 15:27-0500 Body mass index (BMI) [Ratio] 52.62 kg/m2 Shaikh Leanna WYNNE Work Phone: [facility] 08-27-2023 15:27-0500 Body temperature 96.8 [degF] Shaikh Leanna WYNNE Work Phone: [facility] 08-27-2023 15:27-0500 Body weight 147.87 kg Shaikh Leanna WYNNE Work Phone: [facility] 08-27-2023 15:27-0500 Diastolic blood pressure 90 mm[Hg] Shaikh Leanna WYNNE Work Phone: [facility] 08-27-2023 15:27-0500 Heart rate 98 /min Shaikh Leanna WYNNE Work Phone: [facility] 08-27-2023 15:27-0500 SaO2% (BldA) [Mass fraction] 95 % Shaikh Leanna WYNNE Work Phone: [facility] 08-27-2023 15:27-0500 Systolic blood pressure 126 mm[Hg] Shaikh Leanna WYNNE Work Phone: [facility] 03-09-2023 18:05-0400 Body height 167.64 cm Ban Heaton Other [facility] Other 03-09-2023 18:05-0400 Body mass index (BMI) [Ratio] 52.45 kg/m2 Ban Heaton Other [facility] Other 03-09-2023 18:05-0400 Body temperature 97.5 [degF] Ban Heaton Other [facility] Other 03-09-2023 18:05-0400 Body weight 147.42 kg Ban Heaton Other [facility] Other 03-09-2023 18:05-0400 Diastolic blood pressure 83 mm[Hg] Ban Heaton Other [facility] Other 08-14-2023 18:05-0400 Respiratory rate 18 /min Ban Heaton Other [facility] Other 03-09-2023 18:05-0400 SaO2% (BldA) [Mass fraction] 97 % Ban Heaton Other [facility] Other 03-09-2023 18:05-0400 Systolic blood pressure 144 mm[Hg] Ban Heaton Other [facility] Other 07-12-2021 12:30-0500 Body height 167.64 cm Ema Mitchell Other [facility] Other 07-12-2021 12:30-0500 Body mass index (BMI) [Ratio] 51.64 kg/m2 Ema Mitchell Other [facility] Other 07-12-2021 12:30-0500 Body temperature 98.3 [degF] Ema Mitchell Other [facility] Other 07-12-2021 12:30-0500 Body weight 145.15 kg Ema Mitchell Other [facility] Other 07-12-2021 12:30-0500 SaO2% (BldA) [Mass fraction] 92 % Ema Mitchell Other [facility] Other Encounters Encounter Date Encounter Type Care Provider Facility Start: 01-12-2024 End: 01-12-2024 ambulatory RODRICK PRASAD Not Available Start: 12-23-2023 End: 12-23-2023 ambulatory SHAIKH LEANNA Not Available Start: 09-07-2023 Orders Only Shaikh Leanna WYNNE Work Phone: [facility] Comment on above: H/O seasonal allergi es (Primary Dx) Start: 08-27-2023 End: 08-27-2023 Office outpatient visit 25 minutes Shaikh Leanna WYNNE Work Phone: [facility] Comment on above: IQBAL (dyspnea on exer tion) (Primary Dx); JEFF (obstructive sleep apnea); Primary hypertension (CMS/[facility]); Type 2 diabetes mellitus without complication, without long-term current use of insulin ([facility]/HCC) Start: 08-27-2023 End: 08-27-2023 ambulatory SHAIKH LEANNA Not Available Start: 08-27-2023 [employer] Shaikh Leanna WYNNE Work Phone: [facility] Start: 08-27-2023 [employer] Shaikh Leanna WYNNE Work Phone: [facility] Start: 07-09-2023 End: 07-09-2023 ambulatory STEWART FAYEShadiJUAQUIN Not Available Start: 03-09-2023 End: 03-09-2023 ambulatory Ban Heaton Other [facility] Other Start: 03-09-2023 Office outpatient vi sit 15 minutes Ban Heaton [facility] Start: 10-08-2022 End: 10-09-2022 ambulatory SHAIKH Shadi RAM Facility:[facility] Start: 11-21-2021 ambulatory SHAIKH Shadi RAM Facilit y:[facility] Start: 07-12-2021 (URG) Urgent Care Visit Ema veliz [facility] Start: 07-12-2021 End: 07-12-2021 ambulatory Ema Mitchell Other [facility] Other Procedures Date Procedure Procedure Detail Performing Clinician Start: 02-16-2020 Colonoscopy Shaikh Natan mayer MD Work Phone: Plan of Treatment Date Care Activity Detail Author Start: 02-15-2030 Screening for malign ant neoplasm of colon [facility] Start: 06-26-2025 Glaucoma screening Diabetes: R etinopathy Screening [facility] Start: 05-27-2024 Urine screening for protein Diabetes: Urine Protein Screening [facility] Start: 01-24-2024 Influenza vaccination Influenza Vacc ine (#1) [facility] Comment on above: Postponed from 03/27 (Patient Refused) Start: 08-27-2023 End: 08-27-2023 Patient encounter procedure 08/27/2023 3:30 PM EST Office Visit [facility] [address] [place] [id number] Shaikh Ram MD [address] [place] [id number] Arrived [facility] Comment on above: Arrived Start: 08-27-2023 End: 08-27-2024 ECG 12 lead ECG 12 lead ECG Routine IQBAL (dyspnea on exertion) Expected: 08/27/2023 (Approximate), Expires: 08/27/2024 [facility] Work Phone: Comment on above: Expected: 08/27/2023 (Approximate), Expires: 08/27/2024 Start: 08-27-2023 Hemoglobin A1c measurement Diabetes: Hemoglobin A1C [facility] Start: 08-27-2023 End: 08-27-2025 NM Heart Perfusion W adenosine and W radionuclide IV STRESS [facility] Cardiac Nuclear Medicine Routine IQBAL (dyspnea on exertion) Expected: 08/27/2023 (Approximate), Expires: 08/27/2025 [facility] Comment on above: Expected: 08/27/2023 (Approximate), Expires: 08/27/2025 Start: 03-27-2023 Influenza vaccination Influenza Vacc ine (#1) [facility] Start: 1975 Urine screening for protein Diabetes: Urine Protein Screening [facility] Start: 1966 Glaucoma screening Diabetes: R etinopathy Screening [facility] Start: 1955 Hemoglobin A1c measurement Diabetes: Hemoglobin A1C [facility] Start: 1955 Medicare Annual Well ness (AWV) Medicare Annual Wellness (AWV) [facility] Start: 1955 Screening for malign ant neoplasm of colon [facility] Immunizations Immunization Date Immunization Notes Care Provider Kayla newberry 03-09-2023 tetanus toxoid, reduced diphtheria toxoid, and acellular pertussis vaccine, adsorbed Ban Florina Other [employer] Other 03-09-2023 tetanus and diphther ia toxoids, adsorbed, preservative free, for adult use (5 Lf of tetanus toxoid and 2 Lf of diphtheria toxoid) Shaikh Leanna WYNNE Work Phone: [facility] 05-22-2022 Pneumococcal Conjuga te PCV 20 Shaikh Leanna WYNNE Work Phone: [facility] 05-21-2022 Influenza, High-dose Seasonal, Quadrivalent, Preservative Free Shaikh Leanna WYNNE Work Phone: [facility] 05-21-2022 influenza virus vaccine, unspecified formulation Shaikh Leanna WYNNE Work Phone: [facility] 06-05-2021 influenza, injectabl e, quadrivalent, preservative free Shaikh Leanna WYNNE Work Phone: [facility] 04-25-2020 influenza, injectabl e, quadrivalent, preservative free Shaikh Leanna WYNNE Work Phone: [facility] 07-13-2019 influenza, injectabl e, quadrivalent, preservative free Shaikh Leanna WYNNE Work Phone: [facility] 06-07-2018 influenza, injectabl e, quadrivalent, preservative free Shaikh Leanna WYNNE Work Phone: [facility] 05-17-2017 influenza, injectabl e, quadrivalent, preservative free Shaikh Leanna WYNNE Work Phone: [facility] 05-05-2017 influenza, injectabl e, quadrivalent, preservative free Shaikh Leanna WYNNE Work Phone: [facility] Payers Date Payer Category Payer Medicare GENERIC MEDICARE ADVANTAGE GENERIC MEDICARE ADVANTAGE [id number] 2023-Present [phone] [address] [facility] [address] [place] [address] [id number] 2022 Unknown [employer] [id number] 2022-Present [address] [place] [address] [id number] 2020 Unknown [id number] 1959 Self-pay [id number] 1956 Unknown [id number] 1956 Unknown [id number] 1956 Unknown [id number] 9 1956 Unknown [id number] 9 1956 Unknown [id number] 9 1956 Unknown [id number] 9 1956 Unknown [id number] 9 1956 Unknown [id number] 9 Social History Date Type Detail Facility Unknown if ever smoked [facility] Other Start: 07-09-2023 End: 08-27-2023 Sex Assigned At [facility] Other Start: 07-09-2023 End: 08-27-2023 Tobacco smoking [...] and has poor insight. He also saw air quality consultant before to help manage his meals, improve [...] presents for Travel Consult. Patient travelling to [place] next week via airplane to attend his [...] every 12 (twelve) hours Continuous Blood Gluc Account Group Supervisor ([employer] [place]) device USE DIRECTED to test BLOOD SUGAR [...] List Items Addressed This Visit Primary hypertension (CMS/HCC) BP well controlled. On [...] without long-term current use of insulin ([facility]) Last A1C 7.1 06/18. On metformin and trulicity. Non compliant with diet and has poor insight. He also saw air quality consultant before to help manage his meals, improve [...] months (around 11/25/2023). documented in this encounter [facility] Evaluation note 03-09-2023 Note [...] hours ago. Areas cleaned thoroughly by medical collector. Triple antibiotic ointment applied to area, covered [...] office. Patient verbalized understanding of treatment plan. [facility] Other Evaluation note 07-12-2021 Note Date & [...] Patient care instructions given in writting by [facility] Care At Home document. [facility] Other Evaluation note Note Date & Type Note Facility Evaluation note Diagnosis IQBAL (dyspnea on exertion)- Primary Other dyspnea and respiratory abnormality JEFF (obstructive sleep apnea) Obstructive sleep apnea (adult) (pediatric) Primary hypertension (CMS/HCC) Unspecified essential hypertension Type 2 diabetes mellitus without complication, without long-term current use of insulin (CMS/HCC) documented in this encounter [facility] Evaluation note Note Date & Type Note Facility Evaluation note Diagnosis H/O seasonal allergies- Primary documented in this encounter [facility] History general Narrative - Reported Note Date & Type Note Facility History general Narrative - Reported Type Medical History Hypertension Medical History hyperlipidemia Medical History type II diabetes Xactium Other Summary Purpose Family History No Family History Records FoundNo Family History Records Found Advance Directives No Advanced Directives Records FoundNo Advanced Directives Records Found Reason for Referral Specialty Diagnoses / Procedures Referred By Contac t Referred To Contact Diagnoses IQBAL (dyspnea on exertion) Procedures STRESS NUCLEAR MEDICINE Shaikh Solorio MD [address] [place] [address] [facility] [address] [place] [address] Phone: [phone] Referral ID Status Reason Start Date Expiration Date V isits Requested Visits Authorized [id number] Pending Review 08/27/2023 02/23/2024 3 3 Additional Source Comments REASON FOR VISIT (unrecogniz ed section and content) Reason Comments Travel Consult (unrecognized sect ion and content) No Status Records FoundNo Status Records Found INFORMATION SOURCE (unrecogn ized section and content) DATE CREATED AUTHOR 10/17/2022 [facility] DATE CREATED AUTHOR AUTHOR'S ORGANIZ ATION 01/17/2024 [facility] Special[facility] Care Teams (unrecognized sec tion and content) Smart Energy Specialist Relationship Specialty Start Date End Date Shaikh Ram MD [address] [place] [address] PCP - General Internal Medicine 08/26/23 Smart Energy Specialist Relationship Specialty Start Date End Date Shaikh Ram MD [address] [place] [address] PCP - General Internal Medicine 08/26/23 Smart Energy Specialist Relationship Specialty Start Date End Date Shaikh Ram MD [address] [place] [phone] PCP - General Internal Medicine 08/26/23 FOR [...] BE BASED ON THE PRIMARY CLINICAL RECORDS. [facility] [employer] [facility]. provides no warranty or guarantee of the accuracy or completeness of information in this document.
[2024-03-02 10:05] LABS: Creatinine Urine Random 105.44 mg/dL (20.00-300.00); Microalbum Creatinine Ratio Ur 15.1 mg/g (0.0-29.9); Microalbumin Urine Random 1.6 mg/dL (<=30.0)
[2024-03-02 10:06] LABS: Basophils Percent Auto 0.4 % (0.2-2.0); Eosinophils Absolute Auto 0.2 10^3/uL (0.0-0.7); Eosinophils Percent Auto 2.3 % (0.9-7.0); Hematocrit 45.7 % (42.0-54.0); Hemoglobin 15.6 g/dL (14.0-18.0); Immature Granulocytes Abs Auto 0.03 10^3/uL (0.00-0.03); Immature Granulocytes Pct Auto 0.4 % (0.0-0.5); Lymphocytes Absolute Auto 1.9 10^3/uL (1.2-3.8); Lymphocytes Percent Auto 22.7 % (20.5-60.0); Mean Corpuscular HGB Conc 34.1 g/dL (29.9-35.2); Mean Corpuscular Hemoglobin 29.1 pg (25.9-34.0); Mean Corpuscular Volume 85.3 fL (80.0-94.0); Mean Platelet Volume 10.3 fL (9.5-13.5); Monocytes Absolute Auto 0.5 10^3/uL (0.3-0.8); Monocytes Percent Auto 5.7 % (1.7-12.0); Neutrophils Absolute Auto 5.9 10^3/uL (1.4-6.5); Neutrophils Percent Auto 68.5 % (43.0-75.0); Platelet Count 184 10^3/uL (150-450); Red Blood Count 5.36 10^6/uL (4.70-6.10); Red Cell Distribution Width 13.9 % (11.0-15.0); White Blood Count 8.6 10^3/uL (4.0-11.0)
[2024-03-02 10:07] LABS: Estimated Average Glucose 151 mg/dL; Glycohemoglobin A1C 6.9 % (4.5-6.2)
[2024-03-02 10:19] LABS: Alanine Aminotransferase 31 U/L (16-63); Albumin Level 3.9 g/dL (3.4-5.0); Alkaline Phosphatase 88 U/L (46-116); Anion Gap 12.2; Aspartate Amino Transferase 17 U/L (15-37); BUN Creatinine Ratio 21.2; Bilirubin Total 0.5 mg/dL (0.2-1.0); Calcium 9.6 mg/dL (8.5-10.1); Carbon Dioxide 31.1 mmol/L (21.0-32.0); Chloride 100 mmol/L (98-107); Estimated GFR (African America >60 (>=60); Estimated GFR (Non-African Ame >60 (>=60); Globulin 3.2 g/dL; Glucose 169 mg/dL (74-106); Potassium 4.3 mmol/L (3.5-5.1); Sodium 139 mmol/L (136-145); Total Protein 7.1 g/dL (6.4-8.2)
[2024-03-02 10:20] LABS: Albumin Globulin Ratio 1.2; Chol HDL Ratio 3.7; Cholesterol 176 mg/dL (<=200); HDL Cholesterol 47 mg/dL (40-60); LDL Cholesterol Calculated 99.4 mg/dL; Triglycerides 148 mg/dL (<=150); VLDL CHOLESTEROL 29.6 mg/dL
== END 2024-03-02 09:25 | disposition home or self-care (01) ==
LOC: LAB 09:29
PROVIDERS: Visit Provider Internal Medicine
DX: E78.49 Other hyperlipidemia (principal); I10 Essential (primary) hypertension; E11.9 Type 2 diabetes mellitus without complications
CPT/HCPCS: 36415; 80053; 80061; 82043; 82570; 83036; 85025

== ENCOUNTER 2024-12-27 11:33 | Outpatient (OUT) | payer MEDICARE, SELFPAY ==
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
--- OUTSIDE RECORDS SUMMARY | 2024-12-27 11:40 | XMS_ITS | Encounter Summary ---
Author Organization [facility] Address [address] [place] [address] Care Team Providers Care Youth Director Name Role Phone Bakari Bhat MD Primary Care Provider [phone] Cathleen Malik NP Unavailable [phone] Faisal Cr LPC Unavailable Unavailable Encounter Details Date Type Department Care Team (Late st Contact Info) Description 06/20/2024 Abstract [facility] [address] [place] [address] Cathleen Malik NP Social History Tobacco Use Types Packs/Day Years [...] on file documented as of this encounter Plan of Treatment Upcoming Encounters Date Type Department Care Team (Late st Contact Info) Description 01/11/2025 2:20 PM EDT Office Visit [facility] [address] [place] [phone] Onelia Simon NP [address] [place] [address] 01/25/2025 1:40 PM EDT Office Visit [facility] [address] [place] [address] Onelia Simon, ELVIA [address] [place] [phone] documented as of this encounter Visit Diagnoses Not on filedocumented in this encounter Additional Health Concerns Assessment Noted Time PHQ-9 Depression Total Score: 15 024 3:36 PM EST documented as of this encounter Care Teams Youth Director Relationship Specialty Start Date End Date Bakari Bhat MD [address] [place] [address] PCP - General Family Medicine 02/29/24 Cathleen Malik NP [address] [place] [address] Nurse Practitioner Family Medicine 02/29/24 Faisal Cr LPC [facility] 08/31/24 documented as of this encounter
--- OUTSIDE RECORDS SUMMARY | 2024-12-27 11:40 | XMS_ITS | Encounter Summary ---
Author Organization [facility] [employer] s tem Address [facility]-[id number] [address] [place] [address] Care Team Providers Care Char Dust Cleaner And Salvager Name Role Phone Mary Alice Schultz Primary Care Provider Reason for Visit * Reason Onset Date Comments Med Refill 04/20/2023 Encounter Details Date Type Department Care Team (Late st Contact Info) Description 04/20/2023 Refill [facility] Internal Medicine - Family Medicine [address] [place] [address] Mary Alice Schultz APRN-CNP [facility] [place], [place] [id number] Social History Tobacco Use Types Packs/Day Years Used Date Smoking Tobacco: Former Smokeless Tobacco: Never Comments:quit 35 years ago Alcohol Use Standard Drinks/Week Comments Yes 0 (1 standard drink = 0.6 oz pur e alcohol) social, rarely Childcare Answer Date Recorded Childcare Unknown 01/05/2019 Employment Answer Date Recorded Employment Unknown 01/05/2019 Purpose - Life Answer Date Recorded Purpose and direction in life Unknown Sex and Gender Information Value Date Recorded Sex Assigned at Not on file Legal Sex Male 11:26 AM EDT Gender Identity Not on file Sexual Orientation Not on file documented as of this encounter Plan of Treatment Not on file documented as of this encounter Visit Diagnoses Not on filedocumented in this encounter Care Teams Char Dust Cleaner And Salvager Relationship Specialty Start Date End Date Mary Alice Schultz APRN-CNP [address] [place] [address] PCP - General Family Medicine 08/27/17 documented as of this encounter
--- OUTSIDE RECORDS SUMMARY | 2024-12-27 11:40 | XMS_ITS | Clinical Summary ---
Author Organization [employer] tem Address [id number] [address] [place] [address] Care Team Providers Care Clock And Watch Hands Painter Name Role Phone Mary Alice Schultz DEEPAK-MILLING PLANER OPERATOR Primary Care Provider Allergies No known active allergies Medications metFORMIN (GLUCOPHAGE) 500 mg tablet Take 2 tablets (1,000 mg total) by mouth in the morning and 2 tablets (1,000 mg total) in the evening. Take with meals. 9 Active lisinopril-hydr oCHLOROthiazide (PRINZIDE,ZESTO RETIC) 20-25 mg per tablet Take 1 tablet by mouth in the morning. 9 Active aspirin 81 mgIndications:m yocardial infarction prevention Take 1 tablet (81 mg total) by mouth in the morning. Indications: treatment to prevent a heart attack. Active layzjcgw-mvlh-M A-calcium &mins (THERAGRAN-M) 9 mg iron-400 mcg tablet Take 1 tablet by mouth in the morning. Active pravastatin (PRAVACHOL) 40 mg tablet Take 1 tablet (40 mg total) by mouth in the morning. Active amLODIPine (NORVASC) 10 mg tablet Take 1 tablet (10 mg total) by mouth in the morning. Active DULoxetine (CYMBALTA) 60 mg capsule Take 1 capsule (60 mg total) by mouth in the morning. Active TRULICITY 1.5 mg/0.5 mL pen injector once a week. 3 Active carvediloL (COREG) 12.5 mg tablet Take 1 tablet (12.5 mg total) by mouth every 12 (twelve) hours. 3 Active busPIRone (BUSPAR) 15 mg tablet Take 1 tablet (15 mg total) by mouth in the morning and 1 tablet (15 mg total) before bedtime. 3 Active Active Problems Problem Noted Date Diagnosed Date Right hip pain 04/20/2019 Overview (04/20/2019): Added automatically from request for surgery [id number] Lumbar spondylosis 10/06/2018 Disorder of sacrum 10/06/2018 Lumbosacral spondylosis without myelopathy 08/30 Overview (08/30/2018): Added automatically from request for surgery [id number] Family History Medical History Relation Name Comments Cancer Father Coronary artery disease Mother Relation Name Status Comments Father lung ca Mother Alive Social History Tobacco Use Types Packs/Day Years Used Date Smoking Tobacco: Former Smokeless Tobacco: Never Tobacco Cessation:Counseling Given: Not Answered Comments:quit 35 years ago Alcohol Use Standard [...] on file Sexual Orientation Not on file Last Filed Vital Signs Vital Sign Reading Time Taken Comments Blood Pressure 157/88 01/08/2023 9:00 AM EDT Pulse 70 01/08/2023 9:00 AM EDT Temperature 37.1 C (98.8 F) 01/08/2023 6:30 AM EDT Respiratory Rate 11 01/08/2023 9:00 AM EDT Oxygen Saturation 92% 01/08/2023 9:00 AM EDT Inhaled Oxygen Concentration - - Weight 147.4 kg (325 lb) 01/08/2023 6:30 AM EDT Height 167.6 cm (5' 6 ) 01/08/2023 6:30 AM EDT Body Mass Index 52.46 01/08/2023 6:30 AM EDT Plan of Treatment Health Maintenance Due Date Last Done Comments Depression Screening 1968 DTaP,Tdap and Td Vaccines (1 - Tdap) 1975 Zoster (Shingles) Vaccine (1 of 2) 2006 Abdominal Aortic Aneurysm (A AA) Screen 2021 Fall Risk Screening 2021 Adult BMI Screening 01/09/2024 01/08/2023 Tobacco Screening 01/09/2024 01/08/2023 Influenza Vaccine 03/27/2025 05/21/2022, , 04/25/2020, Additional history exists Medical Devices Implanted Type Area Corporate Strategist Device Identifier Shelf Expiration Date Model / Serial / Lot Lens Iol Ultrasert 15.0d - [id number] - [id number] Implanted:Qty: 1 on 12/25/2022 by Montse Eduardo MD at [facility] Lens Right: Eye [employer] 01/13/2025 [id number] 15.0 / [id number] / NA Lens Iol Ultrasert 17.0d - [id number] - [id number] Implanted:Qty: 1 on 01/08/2023 by Montse Eduardo MD at [facility] Lens Left: Eye [employer] 10/12/2024 [id number] 17.0 / [id number] / NA Insurance * Guarantor: Rigo Bolaños Jr. Account Type Relation to Patient Date of Phone Billing Address Personal/Family Self 1955 [address] [place] [address] [employer] Care Teams Clock And Watch Hands Painter Relationship Specialty Start Date End Date Mary Alice Schultz APRN-BASIM [address] [place] [address] PCP - General Family Medicine 08/27/17
--- OUTSIDE RECORDS SUMMARY | 2024-12-27 11:40 | XMS_ITS | Encounter Summary ---
Author Organization [facility] [employer] [facility] tem Address [facility][id number] [address] [place] [address] Support Name Relationship Address Phone Matthew Bolaños Personal Relationship [address] [place] [address] Care Team Providers Care Freelance Copywriter Name Role Phone Mary Alice Schultz Primary Care Provider Reason for Visit * Reason Onset Date Comments Med Refill 02/01/2024 Encounter Details Date Type Department Care Team (Late st Contact Info) Description 02/01/2024 Refill [facility] Internal Medicine - Family Medicine [address] [place] [address] Maria Teresa Torres CMA Social History Tobacco Use Types Packs/Day Years [...] on filedocumented in this encounter Care Teams Freelance Copywriter Relationship Specialty Start Date End Date Mary Alice Schultz APRN-CNP [address] [place] [address] PCP - General Family Medicine 08/27/17 documented as of this encounter
--- OUTSIDE RECORDS SUMMARY | 2024-12-27 11:40 | XMS_ITS | Encounter Summary ---
Author Organization [facility] tem Address [facility][id number] [address] [place] [address] Care Team Providers Care Transfer Specialist Name Role Phone Mary Alice Schultz APRN-PAINTER SUPERVISOR Primary Care Provider Encounter Details Date Type Department Care Team (Late st Contact Info) Description 02/16/2024 Orders Only [facility] Internal Medicine - Family Medicine [address] [place] [address] Ref Prov, [place] [address] Social History Tobacco Use Types Packs/Day Years [...] on file documented as of this encounter Procedures Procedure Name Priority Date/Time Associated Diagnosis Comments DIABETES EYE EXAM Routine 02/16/2024 2:25 PM EDT documented in this encounter Results * HM DIABETES EYE EXAM (02/16/2024 2:25 PM EDT) us Not In System Ref Prov HEALTH MAINTENANCE Final Result MANUALLY TRANSCRIBED RESULTS documented in this encounter Visit Diagnoses Not on filedocumented in this encounter Care Teams Transfer Specialist Relationship Specialty Start Date End Date Mary Alice Schultz APRN-CNP [address] [place] [address] PCP - General Family Medicine 08/27/17 documented as of this encounter
--- OUTSIDE RECORDS SUMMARY | 2024-12-27 11:40 | XMS_ITS | Encounter Summary ---
Author Organization [email or web address] [facility] tem Address [facility][id number] [address] [place] [address] Care Team Providers Care Systems Coordinator Name Role Phone Mary Alice Schultz APRN-LEADERSHIP DEVELOPMENT INSTRUCTOR Primary Care Provider Reason for Visit * Reason Onset Date Comments Med Refill 04/21/2022 Encounter Details Date Type Department Care Team (Late st Contact Info) Description 04/21/2022 [facility] [address] [place] [address] Maria Teresa Torres CMA Social History Tobacco [...] on file documented as of this encounter Miscellaneous Notes * Telephone Encounter - Jimmy Santos DO - 04/21/2022 2:42 PM EDT Not my patient documented in this encounter Plan of Treatment Not on file documented as of this encounter Visit Diagnoses Not on filedocumented in this encounter Care Teams Systems Coordinator Relationship Specialty Start Date End Date Mary Alice Schultz APRN-BASIM [address] [place] [address] PCP - General Family Medicine 08/27/17 documented as of this encounter
--- OUTSIDE RECORDS SUMMARY | 2024-12-27 11:40 | XMS_ITS | Encounter Summary ---
Author Organization [facility] Address [facility][id number] [address] [place] [address] Care Team Providers Care Fire Chief Name Role Phone Mary Alice Schultz Primary Care Provider Reason for Visit * Reason Onset Date Comments Med Refill 10/21/2022 Encounter Details Date Type Department Care Team (Late st Contact Info) Description 10/21/2022 Refill [facility] Internal Medicine - Family Medicine [address] [place] [address] Mary Alice Schultz APRN-CNP [facility] [place], [place] [id number] Social History Tobacco Use Types Packs/Day Years [...] on filedocumented in this encounter Care Teams Fire Chief Relationship Specialty Start Date End Date Mary Alice Schultz APRN-CNP [address] [place] [address] PCP - General Family Medicine 08/27/17 documented as of this encounter
--- OUTSIDE RECORDS SUMMARY | 2024-12-27 11:40 | XMS_ITS | Encounter Summary ---
Author Organization [facility] Address [facility][id number] [address] [place] [address] Support Name Relationship Address Phone Matthew Bolaños Personal Relationship [address] [place] [address] Care Team Providers Care Clinical Immunologist Name Role Phone Mary Alice Schultz Primary Care Provider Reason for Visit * Reason Onset Date Comments Med Refill 04/22/2023 Encounter Details Date Type Department Care Team (Late st Contact Info) Description 04/22/2023 [facility] [address] [place] [address] Maria Teresa Torres CMA Social History Tobacco [...] on filedocumented in this encounter Care Teams Clinical Immunologist Relationship Specialty Start Date End Date Mary Alice Schultz APRN-CNP [address] [place] [address] PCP - General Family Medicine 08/27/17 documented as of this encounter
--- OUTSIDE RECORDS SUMMARY | 2024-12-27 11:40 | XMS_ITS | Encounter Summary ---
Author Organization [facility] tem Address [facility][id number] [address] [place] [address] Support Name Relationship Address Phone Matthew Bolaños Personal Relationship [address] [place] [address] Care Team Providers Care Electronic Pagination System Operator Name Role Phone Mary Alice Schultz Primary Care Provider Reason for Visit * Reason Onset Date Comments Med Refill 02/01/2024 Encounter Details Date Type Department Care Team (Late st Contact Info) Description 02/01/2024 Refill [facility] Internal Medicine - Family Medicine [address] [place] [address] Maria Teresa Torres CMA Social History Tobacco [...] on filedocumented in this encounter Care Teams Electronic Pagination System Operator Relationship Specialty Start Date End Date Mary Alice Schultz APRN-CNP [address] [place] [address] PCP - General Family Medicine 08/27/17 documented as of this encounter
--- OUTSIDE RECORDS SUMMARY | 2024-12-27 11:40 | XMS_ITS | Encounter Summary ---
Author Organization [facility] Address [address] [place] [address] Care Team Providers Care General Office Worker Name Role Phone Bakari Bhat MD Primary Care Provider [phone] Cathleen Malik INDUSTRIAL ROBOTICS MECHANIC Unavailable [phone] Faisal Cr LPC Unavailable Unavailable Encounter Details Date Type Department Care Team (Late st Contact Info) Description 05/05/2024 [facility] [address] [place] [address] Van Trinh MD [address] [address] [place] [address] Social History Tobacco Use Types Packs/Day Years [...] 01/11/2025 2:20 PM EDT Office Visit [facility] [address] [place] [address] Onelia Simon NP [address] [place] [address] 01/25/2025 1:40 PM EDT Office Visit [facility] [address] [place] [address] Onelia Simon NP [address] [place] [address] documented as of this encounter Procedures Procedure Name Priority Date/Time Associated Diagnosis Comments COLONOSCOPY DIAGNOSTIC Routine 05/05/2024 8:38 AM EDT documented in this encounter Results * COLONOSCOPY DIAGNOSTIC (05/05/2024 8:38 AM EDT) Anatomical Region Laterality Modality Radiographic Renee ging us Van Trinh MD IMG XR PROCEDURES Final Result documented in this encounter Visit Diagnoses Not on filedocumented in this encounter Additional Health Concerns Assessment Noted Time PHQ-9 Depression Total Score: 15 08/27/ 024 3:36 PM EST documented as of this encounter Care Teams General Office Worker Relationship Specialty Start Date End Date Bakari Bhat MD [address] [place] [address] PCP - General Family Medicine 02/29/24 Cathleen Malik NP [address] [place] [address] Nurse Practitioner Family Medicine 02/29/24 Faisal Cr LPC Marine Diesel Technician Behavioral Health 08/31/24 documented as of this encounter
--- OUTSIDE RECORDS SUMMARY | 2024-12-27 11:40 | XMS_ITS | Encounter Summary ---
Author Organization [facility] tem Address [facility]-[id number] [address] [place] [address] Care Team Providers Care Louver Mortiser Operator Name Role Phone Mary Alice Schultz Primary Care Provider Encounter Details Date Type Department Care Team (Late st Contact Info) Description 09/10/2023 [facility]phone [facility] [address] [place] [address] Maria Teresa Torres CMA Social History Tobacco [...] on filedocumented in this encounter Care Teams Louver Mortiser Operator Relationship Specialty Start Date End Date Mary Alice Schultz APRN-CNP [address] [place] [address] PCP - General Family Medicine 08/27/17 documented as of this encounter
--- OUTSIDE RECORDS SUMMARY | 2024-12-27 11:40 | XMS_ITS | Encounter Summary ---
Author Organization [facility] Address [facility] [facility]-[id number] [address] [place] [address] Care Team Providers Care Dinkey Engine Firer/Fireman Name Role Phone Mary Alice Schultz Primary Care Provider Reason for Visit * Reason Onset Date Comments Med Refill 05/10/2024 Encounter Details Date Type Department Care Team (Late st Contact Info) Description 05/10/2024 [facility] [address] [place] [address] Maria Teresa Torres CMA Social History Tobacco [...] on filedocumented in this encounter Care Teams Dinkey Engine Firer/Fireman Relationship Specialty Start Date End Date Mary Alice Schultz APRN-CNP [address] [place] [address] PCP - General Family Medicine 08/27/17 documented as of this encounter
--- OUTSIDE RECORDS SUMMARY | 2024-12-27 11:40 | XMS_ITS | Encounter Summary ---
Author Organization [facility] Address [id number] [address] [place] [address] Care Team Providers Care Sales Executive Insurance Name Role Phone Mary Alice Schultz COMPOSITION FLOOR LAYER-AIRCRAFT MECHANIC ELECTRICAL AND RADIO Primary Care Provider Encounter Details Date Type Department Care Team (Late st Contact Info) Description 07/02/2022 Telephone [facility] Internal Medicine - Family Medicine [address] [place] [address] Evita Larose MA Social History Tobacco Use Types Packs/Day Years [...] encounter Miscellaneous Notes * Telephone Encounter - Evita Larose MA - 07/02/2022 2:11 PM EST Received fax that pt needs 90 day supply of trulicity * Telephone Encounter - Jimmy Santos DO - 07/02/2022 2:11 PM EST He is not my patient. They keep sending me requests to refill his medication but I have never seen him. If you call devoted and tell him to quit sending me refill requests. Thanks * Telephone Encounter - Evita Larose MA - 07/02/2022 2:11 PM EST done documented in this encounter Plan of Treatment Not on file documented as of this encounter Visit Diagnoses Not on filedocumented in this encounter Care Teams Sales Executive Insurance Relationship Specialty Start Date End Date Mary Alice Schultz APRN-BASIM [address] [place], [place] [phone] PCP - General Family Medicine 08/27/17 documented as of this encounter
--- OUTSIDE RECORDS SUMMARY | 2024-12-27 11:41 | XMS_ITS | Encounter Summary ---
Author Organization [facility] Address [address] [place] [address] Care Team Providers Care Construction Carpenter Name Role Phone Shaikh RICCI Ram Primary Care Provider Shaikh RICCI Ram Primary Care Provider [phone] Bakari Bhat MD Primary Care Provider Cathleen Malik TRANSITION MGR Unavailable [phone] Faisal Cr LPC Unavailable Unavailable Reason for Visit * Reason Comments Med Refill Encounter Details Date Type Department Care Team (Late st Contact Info) Description 08/12/2023 Refill [facility] [address] [place] [address] Shaikh Ram MD [address] [place] [address] Other specified anxiety disorders Social History Tobacco Use Types Packs/Day Years Used Date Smoking Tobacco: Never Smokeless Tobacco: Never Alcohol Use Standard Drinks/Week Comments Never 0 (1 standard drink = 0.6 oz pur e alcohol) Sex and Gender Information Value Date Recorded Sex Assigned at Not on file Legal Sex Male 8:11 PM EDT Gender Identity Not on file Sexual Orientation Not on file documented as of this encounter Miscellaneous Notes * Telephone Encounter - Shaikh Leanna MD - 08/13/2023 4:46 PM EST Approving, but needs appt for additional refills. documented in this encounter Plan of Treatment Upcoming Encounters Date Type Department Care Team (Late st Contact Info) Description 01/11/2025 2:20 PM EDT Office Visit [facility] [address] [place] [address] Onelia Simon, EL[place] [address] [place] [address] 01/25/2025 1:40 PM EDT Office Visit [facility] [address] [place] [address] Onelia Simon, ELVIA [address] [place] [address] documented as of this encounter Visit Diagnoses Diagnosis Other specified anxiety disorders documented in this encounter Care Teams Construction Carpenter Relationship Specialty Start Date End Date Shaikh Ram MD PCP - General Internal Medicine 07/27/22 08/25/23 Shaikh Ram MD [address] [place] [address] PCP - General Internal Medicine 08/26/23 02/28/24 Bakari Bhat MD [address] [place] [address] PCP - General Family Medicine 02/29/24 Cathleen Malik NP [address] [place] [address] Nurse Practitioner Family Medicine 02/29/24 Faisal Cr LPC Inventory Worker Behavioral Health 08/31/24 documented as of this encounter
--- OUTSIDE RECORDS SUMMARY | 2024-12-27 11:41 | XMS_ITS | Encounter Summary ---
Author Organization [facility] Address [address] [place] [address] Care Team Providers Care Communications Scientist Name Role Phone Shaikh RICCI Ram Primary Care Provider [phone] Bakari Bhat MD Primary Care Provider [phone] Cathleen Malik FIREFIGHTING EQUIPMENT SPECIALIST Unavailable [phone] Faisal Cr LPC Unavailable Unavailable Reason for Visit * Reason Comments Med Refill Encounter Details Date Type Department Care Team (Late st Contact Info) Description 09/04/2023 Refill [facility] [address] [place] [address] Shaikh Ram MD [address] [place] [address] Other specified anxiety disorders Social History Tobacco Use Types Packs/Day Years Used Date Smoking Tobacco: Never Passive Smoke Exposure: Never Smokeless Tobacco: Never Alcohol Use Standard Drinks/Week Comments Never 0 (1 standard drink = 0.6 oz pur e alcohol) PHQ-2 Answer Date Recorded Patient Health Questionnaire-2 Score 6 08/27/2023 Sex and Gender Information Value Date Recorded Sex Assigned at Not on file Legal Sex Male 8:11 PM EDT Gender Identity Not on file Sexual Orientation Not on file documented as of this encounter Miscellaneous Notes * Telephone Encounter - Shaikh Leanna MD - 09/07/2023 12:56 PM EST Approving, but needs appt for additional refills. documented in this encounter Plan of Treatment Upcoming Encounters Date Type Department Care Team (Late st Contact Info) Description 01/11/2025 2:20 PM EDT Office Visit [facility] [address] [place] [address] Onelia Simon NP [address] [place] [address] 01/25/2025 1:40 PM EDT Office Visit [facility] [address] [place] [address] Onelia Simon NP [address] [place] [address] documented as of this encounter Visit Diagnoses Diagnosis Other specified anxiety disorders documented in this encounter Additional Health Concerns Assessment Noted Time PHQ-9 Depression Total Score: 15 024 3:36 PM EST documented as of this encounter Care Teams Communications Scientist Relationship Specialty Start Date End Date Shaikh Ram MD [address] [place] [address] PCP - General Internal Medicine 08/26/23 02/28/24 Bakari Bhat MD [address] [place] [address] PCP - General Family Medicine 02/29/24 Cathleen Malik NP [address] [place] [address] Nurse Practitioner Family Medicine 02/29/24 Faisal Cr LPC Barrel Drainer Behavioral Health 08/31/24 documented as of this encounter
--- OUTSIDE RECORDS SUMMARY | 2024-12-27 11:41 | XMS_ITS | Encounter Summary ---
Author Organization [facility] Address [address] [place] [address] Care Team Providers Care Sales Review Clerk Name Role Phone Shaikh RICCI Ram Primary Care Provider [phone] Shaikh RICCI Ram Primary Care Provider Bakari Bhat MD Primary Care Provider [phone] Cathleen Malik VP PUBLISHER DEVELOPMENT Unavailable [phone] Faisal Cr LPC Unavailable Unavailable Encounter Details Date Type Department Care Team (Late st Contact Info) Description 06/23/2023 Orders Only [facility] [address] [place] [address] Shaikh Ram MD [address] [place] [address] Social History Tobacco Use Types Packs/Day Years Used Date Smoking Tobacco: Never Assessed Sex and Gender Information Value Date Recorded Sex Assigned at Not on file Legal Sex Male 8:11 PM EDT Gender Identity Not on file Sexual Orientation Not on file documented as of this encounter Plan of Treatment Upcoming Encounters Date Type Department Care Team (Late st Contact Info) Description 01/11/2025 2:20 PM EDT Office Visit [facility] [address] [place] [address] Onelia Simon NP [address] [place] [address] 01/25/2025 1:40 PM EDT Office Visit [facility] [address] [place] [address] nOelia Simon NP [address] [place] [address] documented as of this encounter Visit Diagnoses Not on filedocumented in this encounter Care Teams Sales Review Clerk Relationship Specialty Start Date End Date Shaikh Ram MD PCP - General Internal Medicine 07/27/22 08/25/23 Shaikh Ram MD [address] [place] [phone] PCP - General Internal Medicine 08/26/23 02/28/24 Bakari Bhat MD [address] [place] [phone] PCP - General Family Medicine 02/29/24 Cathleen Malik NP [address] [place] [phone] Nurse Practitioner Family Medicine 02/29/24 Faisal Cr LPC Investment Accounting Clerk Behavioral Health 08/31/24 documented as of this encounter
--- OUTSIDE RECORDS SUMMARY | 2024-12-27 11:41 | XMS_ITS | Encounter Summary ---
Author Organization [facility] Address [address] [facility] [place] [address] Care Team Providers Care Records Management Manager Name Role Phone Bakari Bhat MD Primary Care Provider Cathleen Malik NP Unavailable [phone] Faisal Cr LPC Unavailable Unavailable Encounter Details Date Type Department Care Team (Late Contact Info) Description 12/14/2024 Bamboo flowsheet [facility] [address] [place] [address] Onelia Simon NP [address] [place] [address] Social History Tobacco Use Types Packs/Day Years [...] 01/11/2025 2:20 PM EDT Office Visit [facility] [address] [place] [phone] Onelia Simon NP [address] [place] [address] 01/25/2025 1:40 PM EDT Office Visit [facility] [address] [place] [phone] Onelia Simon NP [address] [place] [address] documented as of this encounter Visit Diagnoses Not on filedocumented in this encounter Additional Health Concerns Assessment Noted Time PHQ-9 Depression Total Score: 15 024 3:36 PM EST documented as of this encounter Care Teams Records Management Manager Relationship Specialty Start Date End Date Bakari Bhat MD [address] [place] [phone] PCP - General Family Medicine 02/29/24 Cathleen Malik NP [address] [place] [phone] Nurse Practitioner Family Medicine 02/29/24 Faisal Cr LPC Psychological Operations Specialist Behavioral Health 08/31/24 documented as of this encounter
--- OUTSIDE RECORDS SUMMARY | 2024-12-27 11:41 | XMS_ITS | Encounter Summary ---
Author Organization [facility] Address [address] [place] [address] Care Team Providers Care Inside Sales Account Representative Name Role Phone Shaikh RICCI Ram Primary Care Provider [phone] Bakari Bhat MD Primary Care Provider Cathleen Malik OFFSHORE WIND TURBINE TECHNICIAN Unavailable [phone] Faisal Cr LPC Unavailable Unavailable Encounter Details Date Type Department Care Team (Late st Contact Info) Description 10/08/2023 Clinisync Result Encounter [facility] External Department Unsolicited Shaikh Ram MD [address] [place] [address] Social History Tobacco Use Types Packs/Day Years [...] EDT Office Visit [facility] [address] [place] [phone] Onelia Simon NP [address] [place] [address] 01/25/2025 1:40 PM EDT Office Visit [facility] [address] [place] [phone] Onelia Simon, [facility] [address] [place] [address] documented as of this encounter Procedures Procedure Name Priority Date/Time Associated Diagnosis Comments NM GABI PERF SPECT REST STR 10/08/2023 9:32 AM EDT documented in this encounter Results * NM GABI PERF SPECT REST STR (10/08/2023 9:32 AM EDT) Anatomical Region Laterality Modality Other 10/08/2023 9:32 AM EDT Narrative 10/08/2023 9:33 [place] [address] Nuclear Medicine Report Signed Patient: RIGO BOLAÑOS MR#: [id number] : 1955 Acct:[id number] Age/Sex: 68 / M ADM Date: 10/05/23 Loc: [place] Attending Dr: Shaikh Leanna Holt Ordering Physician: Shaikh Yanet Ram Date of Service: 10/05/23 Procedure(s): NM gabi perf SPECT rest str Accession Number(s): [id number] cc: Shaikh Yanet Ram Patient Name: RIGO BOLAÑOS MR#: [id number] : 1955 Exam Date: 10/05/2023 Ordering Doctor: SHAIKH Holly RAM . RADIOLOGY REPORT PROCEDURE: NM GABI PERF SPECT REST STR COMPARISON: None. INDICATIONS: DYSPNEA ON EXERTION TECHNIQUE: Exam Description: Stress/Rest two day protocol gated SPECT Rest Imagin.0 mCi Tc-99m Cardiolite IV on 10/05/2023 Stress Imaging 25.3 mCi Tc-99m Cardiolite IV on 10/07/2023 Exercise Protocol: 0.4 mg Lexiscan given IV Heart Rate (bpm): Rest: 80 Max: 96 PMHR: 62 Blood Pressure: Rest: 156/84 Max: 170/96 Symptoms: Rest and peak stress ECG findings were normal and the exercise portion of the study was normal per attending physician Dr. Hurst . For more details please see separate cardiac stress test report. FINDINGS: QUALITY OF STUDY: Good. PERFUSION DEFECT: LOCATION: Basal inferior. Mid-inferior. Apical inferior. SIZE: Medium (3-4 segments). SEVERITY: Moderate. TYPE: Persistent. WALL MOTION: Normal. LV SIZE: Enlarged; EDV 156 mL. TID / TCD: None; 1.0 LVEF: Normal. Calculated EF 60%. SUMMARY: Myocardial perfusion imaging study has ABNORMAL findings. CONCLUSION: 1. No acute or reversible ischemia. 2. Fixed defect involving inferior wall from base to apex versus diaphragm attenuation artifact. 3. Left ventriculomegaly, 156 mL. 4. Normal wall motion and ejection fraction. Dictated by: Jose Manuel Judd M.D. on 10/08/2023 at 09:28 Approved by: Jose Manuel Judd M.D. on 10/08/2023 at 09:32 Dictated By: Jose Manuel Judd M.D. Signed By: 10/08/23 0933 DD/ TD/TT: Transition Assistant: Procedure Note Radiology, Radiologist, MD - 10/08/2023 [place] [address] Nuclear Medicine Report Signed Patient: RIGO BOLAÑOS EMR#: [id number] : 1955cct:[id number] Age/Sex: 68 / MADM Date: 10/05/23 Loc: NM Attending Dr: Shaikh Leanna Holt Ordering Physician: Shaikh Yanet aRm Date of Service: 10/05/23 Procedure(s): NM gabi perf SPECT rest str Accession Number(s): [id number] cc: Shaikh Yanet Ram Patient Name: RIGO BOLAÑOS MR#: [id number] : 1955 Exam Date: 10/05/2023 Ordering Doctor: SHAIKH Holly RAM . RADIOLOGY REPORT PROCEDURE: NM GABI PERF SPECT REST STR COMPARISON: None. INDICATIONS: DYSPNEA ON EXERTION TECHNIQUE: Exam Description: Stress/Rest two day protocol gated SPECT Rest Imagin.0 mCi Tc-99m Cardiolite IV on 10/05/2023 Stress Imaging 25.3 mCi Tc-99m Cardiolite IV on 10/07/2023 Exercise Protocol: 0.4 mg Lexiscan given IV Heart Rate (bpm): Rest: 80 Max: 96 PMHR: 62 Blood Pressure: Rest: 156/84 Max: 170/96 Symptoms: Rest and peak stress ECG findings were normal and the exercise portion ofthe study was normal per attending physician Dr. Hurst . For more detailsplease see separate cardiac stress test report. FINDINGS: QUALITY OF STUDY: Good. PERFUSION DEFECT: LOCATION: Basal inferior. Mid-inferior. Apical inferior. SIZE: Medium (3-4 segments). SEVERITY: Moderate. TYPE: Persistent. WALL MOTION: Normal. LV SIZE: Enlarged; EDV 156 mL. TID / TCD: None; 1.0 LVEF: Normal. Calculated EF 60%. SUMMARY: Myocardial perfusion imaging study has ABNORMAL findings. CONCLUSION: 1. No acute or reversible ischemia. 2. Fixed defect involving inferior wall from base to apex versus diaphragm attenuation artifact. 3. Left ventriculomegaly, 156 mL. 4. Normal wall motion and ejection fraction. Dictated by: Jose Manuel Judd M.D. on 10/08/2023 at 09:28 Approved by: Jose Manuel Judd M.D. on 10/08/2023 at 09:32 Dictated By: Jose Manuel Judd M.D. Signed By:10/08/23 0933 DD/ 0932 TD/TT: Transition Assistant: us Shaikh Leanna [facility] Final Result documented in this encounter Visit Diagnoses Not on filedocumented in this encounter Additional Health Concerns Assessment Noted Time PHQ-9 Depression Total Score: 15 024 3:36 PM EST documented as of this encounter Care Teams Inside Sales Account Representative Relationship Specialty Start Date End Date Shaikh Ram MD [address] [place] [address] PCP - General Internal Medicine 08/26/23 02/28/24 Bakari Bhat MD [address] [place] [address] PCP - General Family Medicine 02/29/24 Cathleen Malik NP [address] [place] [address] Nurse Practitioner Family Medicine 02/29/24 Faisal Cr LPC Visual Display Manager Behavioral Health 08/31/24 documented as of this encounter
--- OUTSIDE RECORDS SUMMARY | 2024-12-27 11:41 | XMS_ITS | Clinical Summary ---
Author Organization [facility] Healthcare Address [address] [place] [address] Care Team Providers Care Editorial Writer Name Role Phone Bakari Bhat MD Primary Care Provider [phone] Cathleen Malik SALES DEVELOPMENT CONSULTANT Unavailable [phone] Faisal Cr LPC Unavailable Unavailable Allergies No known active allergies Medications latanoprost (Xalatan) 0.005 % ophthalmic solution Administer 1 drop into both eyes at bedtime 06/30/20 24 Active semaglutide (Ozempic, 1 MG/DOSE,) 4 MG/3ML solution pen-injectorIndica tions:Type 2 diabetes mellitus without complication, without long-term current use of insulin Inject 1 mg under the skin 1 (one) time per week 9 mL 11/01/19 25 025 Active aspirin 81 MG EC tabletIndications: Type 2 diabetes mellitus without complication, without long-term current use of insulin Take 1 tablet (81 mg) by mouth in the morning. 90 tablet 11/01/19 25 Active carvedilol (Coreg) 12.5 MG tabletIndications: Essential (primary) hypertension (CMS/HCC) Take 1 tablet (12.5 mg) by mouth every 12 (twelve) hours 180 tablet 11/01/19 25 Active gabapentin (Neurontin) 100 MG capsuleIndications :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) Take 1 capsule (100 mg) by mouth in the morning and 1 capsule (100 mg) before bedtime. 180 capsule 11/01/19 25 Active lisinopril-hydroCH LOROthiazide 20-25 MG tabletIndications: Essential (primary) hypertension (CMS/HCC) Take 1 tablet by mouth Daily 90 tablet 11/01/19 25 Active metFORMIN (Glucophage) 1000 MG tabletIndications: Type 2 diabetes mellitus without complications Take 1 tablet (1,000 mg) by mouth in the morning and 1 tablet (1,000 mg) before bedtime. 180 tablet 11/01/19 25 Active Multiple Vitamin (Multivitamin Adult) tabletIndications: Type 2 diabetes mellitus without complication, without long-term current use of insulin Take 1 each by mouth Daily 90 tablet 11/01/19 25 Active pravastatin (Pravachol) 40 MG tabletIndications: Hyperlipidemia, unspecified (CMS/HCC) Take 1 tablet (40 mg) by mouth Daily 90 tablet 11/01/19 25 Active Continuous Glucose Fisher (FreeStyle Anamaria 3 [place]) deviceIndications: Type 2 diabetes mellitus without complication, without long-term current use of insulin 1 each continuously 1 each 11/01/19 25 Active Continuous Glucose Sensor (FreeStyle Anamaria 3 Plus Sensor) miscIndications:Ty pe 2 diabetes mellitus without complication, without long-term current use of insulin 1 each continuously 2 each 11 11/01/19 25 Active DULoxetine (Cymbalta) [address] capsuleIndications :Moderate episode of recurrent major depressive disorder (CMS/HCC) Take 1 capsule (60 mg) by mouth Daily Do not crush or chew. 90 capsule 12/15/19 25 025 Active DULoxetine (Cymbalta) [address] capsuleIndications :Other specified anxiety disorders Take 1 capsule (30 mg) by mouth Daily 90 capsule 11/01/19 25 025 Discontin ued(Ineff ective) loratadine (Claritin) 10 MG tabletIndications: H/O seasonal allergies Take 1 tablet (10 mg) by mouth Daily 90 tablet 11/01/19 25 025 Discontin ued(Thera py completed ) meloxicam (Mobic) 15 MG tabletIndications: Lumbar spondylosis Take 1 tablet (15 mg) by mouth Daily as needed for moderate pain or mild pain 90 tablet 11/01/19 25 025 Discontin ued(Thera py completed ) Active Problems Problem Noted Date Diagnosed Date Dyspnea on exertion 12/14/2024 Assessment & Plan (12/14/2024 1:56 PM EDT): Check ECHO Bilateral lower extremity edema 12/14/2024 Assessment & Plan (12/14/2024 1:57 PM EDT): Limit sodium Check echo Hallux rigidus of left foot 04/27/2024 Onychomycosis 04/27/2024 Type 2 diabetes mellitus with polyneuropathy 08/2023 Assessment & Plan (12/14/2024 1:45 PM EDT): Freq foot checks, proper fitting shoes Control sugars Assessment & Plan (09/13/2024 4:03 PM EST): Complains of numbness and tingling in BLE and feet. Has never taken medication for it. Does not wear compressions socks. Pt agreeable to pharmacological treatment at this time. Will trial Gabapentin 300mg BID. Assessment & Plan (06/16/2024 3:08 PM EST): Complains of numbness and tingling in BLE and feet. Has never taken medication for it. Does not wear compressions socks. Pt agreeable to pharmacological treatment at this time. Will trial Gabapentin 300mg BID. Screening for prostate cancer 03/24/2024 Primary hypertension 08/27/2023 Assessment & Plan (12/14/2024 7:01 AM EDT): Please check blood pressure daily and record DASH diet Limit caffeine Take medication as directed Contact office if chest pain, pressure, dizziness, shortness of breath, swelling legs Recommend slow position changes Current meds: b joaquin, lisinopril/hydrochlorothiazide Assessment & Plan (09/13/2024 4:00 PM EST): Currently taking Carvedilol 12.5mg Lisinopril-hydrochlorothiazide 20-25mg States BP averages at home are less than 130/90. Readings WNL in office today. Denies orthostatic changes, dizziness, cough, shortness of breath, swelling in extremities. Continue current regimen. Assessment & Plan (06/16/2024 3:11 PM EST): Currently taking Carvedilol 12.5mg Lisinopril-hydrochlorothiazide 20-25mg Does not check BP at home. Readings WNL in office today. Denies orthostatic changes, dizziness, cough, shortness of breath, swelling in extremities. Continue current regimen. Assessment & Plan (03/24/2024 3:23 PM EDT): Currently taking Carvedilol 12.5mg Lisinopril-hydrochlorothiazide 20-25mg Checks BP at home; Does not record results. Is unsure of average. Denies orthostatic changes, dizziness, cough, shortness of breath, swelling in extremities. Continue current regimen. Assessment & Plan (12/23/2023 2:51 PM EDT): BP well controlled. On average less than 130/90. Tolerating Anti hypertensive w/o adverse effects. Denies lightheadedness, dizziness, syncope, presyncope. Patient encouraged to continue with home BP monitoring and call office if he experiences orthostatic symptoms or persistently elevated BP. C/w coreg 12.5 q12, lisinopril/hydrochlorothiazide 20-12.5 Order labs Assessment & Plan (08/27/2023 5:21 PM EST): BP well controlled. On average less than 130/90. Tolerating Anti hypertensive w/o adverse effects. Denies lightheadedness, dizziness, syncope, presyncope. Patient encouraged to continue with home BP monitoring and call office if he experiences orthostatic symptoms or persistently elevated BP. Well controlled. Other hyperlipidemia 08/27/2023 Assessment & Plan (12/14/2024 7:03 AM EDT): On statin therapy Check labs yearly and prn dose changes Assessment & Plan (09/13/2024 3:56 PM EST): Currently taking Pravastatin 40mg Denies any myalgias. Continue current regimen. Assessment & Plan (06/16/2024 3:10 PM EST): Currently taking Pravastatin 40mg Denies any myalgias. Continue current regimen. Assessment & Plan (03/24/2024 3:23 PM EDT): Currently taking Pravastatin 40mg Lipid Panel in 03/19 WNL. Denies any myalgias. Continue current regimen. Assessment & Plan (12/23/2023 2:52 PM EDT): On pravastatin. Check lipid panel. JEFF (obstructive sleep apnea) 08/27/2023 Assessment & Plan (12/14/2024 1:44 PM EDT): You have a diagnosis of obstructive sleep apnea. It is recommended that you wear your PAP device any time while in bed sleeping. Not using the PAP device can increase your risk of elevated/uncontrolled high blood pressure, atrial fibrillation, heart attack, stroke, or sudden . Compliance with PAP: no Could not tolerate the mask, dried mouth Assessment & Plan (08/27/2023 5:18 PM EST): Does not use CPAP. Unable to tolerate it. Tried different masks and gave up on it and not interested in using one right now. Type 2 diabetes mellitus wit hout complication, without long-term current use of insulin 08/27/2023 Assessment & Plan (12/14/2024 1:56 PM EDT): Check blood sugars daily, notify if <70 or >200. Take medications (pills or insulin) as directed. Monitor for s/s of hypoglycemia (sweaty, dizziness, nausea, vomiting, or shakiness). Watch for increase in thirst, urination, or appetite. Inspect feet frequently monitoring for open wounds , and also recommend yearly eye exam. Pt should attempt to remain as physically active as chronic conditions allow, as well as trying to follow a diet low in carbohydrates, and simple sugars. Current meds: asa, b joaquin, lisinopril/hydrochlorothiazide, statin A1c: 7.0% 12/14/24 Assessment & Plan (09/13/2024 4:06 PM EST): Currently taking Metformin 1000mg BID Ozempic 1mg- had stopped for 2 months. Started again this past week. Denies any adverse reactions or side effects. DM eye exam: 02/2024 Most recent labs: hemoglobin A1C 7.2% Average FSBS range from BGs range between 110 and 120 No episode of hypoglycemia No medication adverse effects reported by the patient. Patient educated on lifestyle modifications, dietary restrictions, signs and symptoms of hypoglycemia/hyperglycemia and importance of eating regular consistent meals. Stressed upon importance of checking blood glucose at home and bring blood glucose log to appointments. All questions, concerns answered and addressed. Encouraged to call office if persistent hypoglycemia/hyperglycemia on home glucose monitoring noted. Assessment & Plan (06/16/2024 3:20 PM EST): Currently taking Metformin 1000mg BID Ozempic 1mg- had stopped for 2 months. Started again this past week. Denies any adverse reactions or side effects. DM eye exam: 02/2024 Most recent labs: hemoglobin A1C % in February 2024. Average FSBS range from BGs range between 130 and 160 No episode of hypoglycemia No medication adverse effects reported by the patient. Patient educated on lifestyle modifications, dietary restrictions, signs and symptoms of hypoglycemia/hyperglycemia and importance of eating regular consistent meals. Stressed upon importance of checking blood glucose at home and bring blood glucose log to appointments. All questions, concerns answered and addressed. Encouraged to call office if persistent hypoglycemia/hyperglycemia on home glucose monitoring noted. Assessment & Plan (03/24/2024 3:23 PM EDT): Metformin 1000mg BID Ozempic 1mg Denies any adverse reactions or side effects. DM eye exam: 02/2024 Most recent labs: hemoglobin A1C 6.9% in February 2024. Average FSBS range from BGs range between 90 and 130 No episode of hypoglycemia No medication adverse effects reported by the patient. Patient educated on lifestyle modifications, dietary restrictions, signs and symptoms of hypoglycemia/hyperglycemia and importance of eating regular consistent meals. Stressed upon importance of checking blood glucose at home and bring blood glucose log to appointments. All questions, concerns answered and addressed. Encouraged to call office if persistent hypoglycemia/hyperglycemia on home glucose monitoring noted. Continue current regimen. Assessment & Plan (12/23/2023 2:52 PM EDT): Last A1C 7.1 06/18. On metformin and trulicity. Non compliant with diet and has poor insight. He also saw corn chip maker before to help manage his meals, improve his diet. Tolerating meds w/o adverse effects Switch from trulicity to ozempic due to insurance prefera[ence. Check labs Assessment & Plan (08/27/2023 5:23 PM EST): Last A1C 7.1 06/18. On metformin and trulicity. Non compliant with diet and has poor insight. He also saw corn chip maker before to help manage his meals, improve his diet. Tolerating meds w/o adverse effects C/w same. IQBAL (dyspnea on exertion) 08/27/2023 Assessment & Plan (08/27/2023 5:21 PM EST): Reports chronic exertional dyspnea. No associated symptoms. [...] as the probable explanation for exertional dyspnea. Other acute sinusitis 07/09/2023 Non-seasonal allergic rhinitis 07/09/2023 Class 3 severe obesity due t o excess calories without serious comorbidity with body mass index (BMI) of 50.0 to 59.9 in adult 07/09/2023 Assessment & Plan (12/14/2024 7:02 AM EDT): Discussed with patient their BMI (actual, verses recommended). We have also discussed lifestyle modifications: attempts to perform physical activity as chronic conditions allow, also to monitor dietary intake: increasing protein/fruits/veggies and lowering carb intake (unless contraindicated). Limit sodas, juices, and sugary drinks. Currently prescribed ozempic Assessment & Plan (06/16/2024 3:23 PM EST): Discussed with patient their BMI (actual, verses recommended). We have also discussed lifestyle modifications: attempts to perform physical activity as chronic conditions allow, also to monitor dietary intake: increasing protein/fruits/veggies and lowering carb intake (unless contraindicated). Limit sodas, juices, and sugary drinks. Also discussed oral medications that can be utilized for weight loss, as well as surgical options for weight loss. Assessment & Plan (03/24/2024 3:15 PM EDT): Discussed with patient their BMI (actual, verses recommended). We have also discussed lifestyle modifications: attempts to perform physical activity as chronic conditions allow, also to monitor dietary intake: increasing protein/fruits/veggies and lowering carb intake (unless contraindicated). Limit sodas, juices, and sugary drinks. Chronic pain of both knees 06/22/2023 Assessment & Plan (12/23/2023 2:52 PM EDT): Bilateral Knee Pain. Chronic, on going with periods of worsening pain. Reports he feels like his leg will give out. XR at [facility] indicate severe arthritis. On Meloxicam as needed for pain. Encouraged weight loss. Will refer to Orthopedic. Assessment & Plan (06/22/2023 11:32 AM EST): Bilateral Knee Pain. Chronic, on going with periods of worsening pain. Reports he feels like his leg will give out. XR at [facility] indicate severe arthritis. On Meloxicam as needed for pain. Encouraged weight loss. Will refer to Orthopedic. Right hip pain 04/20/2019 Overview (08/27/2023): Added automatically from request for surgery [id number] Lumbar spondylosis 10/06/2018 Lumbosacral spondylosis without myelopathy 08/30 Overview (08/27/2023): Added automatically from request for surgery [id number] Major depression Assessment & Plan (12/14/2024 1:56 PM EDT): Increase duloxetine to 60mg daily Assessment & Plan (09/13/2024 3:57 PM EST): Son 12 years ago, 9 years ago. Patient was taking Paxil, but stopped. Is taking Cymbalta. Is seeing . Has had one visit, isnt sure how he feels about it yet, but agrees to continue going and giving it a try. Assessment & Plan (06/16/2024 3:15 PM EST): Son 12 years ago, 9 years ago. Patient was taking Paxil, but stopped. Is taking Cymbalta. Reports he has severe depression and struggles to leave the house. Would like to start therapy and have someone to talk to. Denies SI/HI. Referral sent to . Encounters Date Type Department Care Team Description 12/14/2024 1:20 PM EDT Office Visit [facility] [address] [place] [address] Onelia Simon NP Dyspnea on exertion (Primary Dx); JEFF (obstructive sleep apnea); Primary hypertension (CMS/HCC); Class 3 severe obesity due to excess calories without serious comorbidity with body mass index (BMI) of 50.0 to 59.9 in adult; Type 2 diabetes mellitus without complication, without long-term current use of insulin; 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); Moderate episode of recurrent major depressive disorder (CMS/HCC); Bilateral lower extremity edema 12/14/2024 Bamboo flowsheet [facility] [address] [place] [id number] Onelia Simon NP 11/01/2024 Refill [facility] [address] [place] [phone] Bakari Bhat MD 10/31/2024 Refill [facility] [address] [place] [address] Bakari Bhat MD Lumbar spondylosis (Primary Dx); Type 2 diabetes mellitus without complication, without long-term current use of insulin; Essential (primary) hypertension (CMS/HCC); Other specified anxiety disorders; Type 2 diabetes mellitus with polyneuropathy ([facility]); H/O seasonal allergies; Type 2 diabetes mellitus without complications; Hyperlipidemia, unspecified ([facility]/HCC) 09/29/2024 Telephone [facility] [address] [place] [address] Cathleen Malik NP 09/28/2024 Refill [facility] [address] [place] [address] Bakari Bhat MD Essential (primary) hypertension ([facility]) from Last 3 Months Immunizations Immunization Administration Dates Next Due Influenza, High-dose Seasona l, Quadrivalent, Preservative Free 05/21/2022 Influenza, injectable, quadr ivalent, preservative free 06/05/2021,04/25/2020,07/13/2019,2017,05/17/2017,05/05/2017 Influenza, seasonal, injecta ble, preservative free 06/16/2024 Pneumococcal Conjugate PCV 20 05/22/2022 Td (adult), 5 Lf tetanus tox oid, preservative free, adsorbed 03/09/2023 Family History Medical History Relation Name Comments Cancer Father Colon, Lung Diabetes Father Hypertension Father Cancer Father's Sister Colon Diabetes Mother Hypertension Mother Relation Name Status Comments Father Father's Sister Mother Alive Social History Tobacco Use Types Packs/Day Years Used Date Smoking Tobacco: Never Passive Smoke Exposure: Never Smokeless Tobacco: Never Tobacco Cessation:Counseling Given: Not Answered Alcohol Use Standard Drinks/Week Comments Never 0 [...] 3.2 oz) 12/14/2024 1:29 PM EDT Height 167.6 cm (5' 6 ) 09/13/2024 3:36 PM EST Body Mass Index 52 09/13/2024 3:36 PM EST Plan of Treatment Upcoming Encounters Date Type Department Care Team (Late st Contact Info) Description 01/11/2025 2:20 PM EDT Office Visit [facility] [address] [place] [address] Onelia Simon NP [address] [place] [phone] 01/25/2025 1:40 PM EDT Office Visit [facility] [address] [place] [address] Onelia Simon NP [address] [place] [phone] Health Maintenance Due Date Last Done Comments CT Colonography 1955 FIT-DNA 1955 FIT 1955 FOBT 1955 Medicare Annual Wellness (AWV) 1955 Sigmoidoscopy 1955 Diabetes: Urine Protein Screening 03/02/2025 024, 05/27/2023 Diabetes: Hemoglobin A1C 03/16/2025 025, 06/16/2024, 05/27/2023 Diabetes: Retinopathy Screening 06/26/2025 3 Colonoscopy 05/05/2034 05/05/2024 Colorectal Cancer Screening 05/05/2034 Pneumococcal Vaccine: 65+ Years Completed 2 Influenza Vaccine Completed 06/16/2024, , 06/05/2021, Additional history exists Procedures Procedure Name Priority Date/Time Associated Diagnosis Comments POCT GLYCOSYLATED HEMOGLOBIN (HGB A1C) Routine 12/14/2024 2:05 PM EDT Type 2 diabetes mellitus without complication, without long-term current use of insulin COLONOSCOPY DIAGNOSTIC Routine 05/05/2024 8:38 AM EDT from Last 3 Months or Most Recently Relevant to Health Maintenance Results * (ABNORMAL) POCT glycosylated hemoglobin (Hb A1C) docked device (12/14/2024 2:05 PM EDT) Hemoglobin A1C 7.0 Blood Venous blood specimen / Unknown 12/14/2024 2:05 PM EDT Onelia Simon SALES DEVELOPMENT CONSULTANT POINT OF CARE TEST ENTER/EDIT O RDERABLES Final Result * COLONOSCOPY DIAGNOSTIC (05/05/2024 8:38 AM EDT) Anatomical Region Laterality Modality Radiographic Renee ging Van Trinh MD IMG XR PROCEDURES Final Result from Last 3 Months or Most Recently Relevant to Health Maintenance Insurance * Guarantor: Rigo Bolaños Jr. Account Type Relation to Patient Date of Phone Billing Address Personal/Family Self 1955 [address] [place] [address] [employer] Care Teams Editorial Writer Relationship Specialty Start Date End Date Bakari Bhat MD [address] [place] [phone] PCP - General Family Medicine 02/29/24 Cathleen Malik NP [address] [place] [address] Nurse Practitioner Family Medicine 02/29/24 Faisal Cr LPC Demonstrator [employer] Behavioral Health 08/31/24
--- OUTSIDE RECORDS SUMMARY | 2024-12-27 11:41 | XMS_ITS | Encounter Summary ---
Author Organization [facility] Address [address] [place] [address] Care Team Providers Care Hair Worker Name Role Phone Shaikh RICCI Ram Primary Care Provider Shaikh RICCI Ram Primary Care Provider Bakari Bhat MD Primary Care Provider Cathleen Malik HEMOTHERAPIST Unavailable [phone] Fiasal Cr LPC Unavailable Unavailable Encounter Details Date Type Department Care Team (Late st Contact Info) Description 07/22/2023 Orders Only [facility] [address] [place] [address] Shaikh Ram MD [address] [place] [address] Social History Tobacco Use Types [...] Office Visit [facility] [address] [place] [address] Onelia Simon NP [address] [place] [phone] 01/25/2025 1:40 PM EDT Office Visit [facility] [address] [place] [phone] Onelia Simon NP [address] [place] [address] documented as of this encounter Procedures Procedure Name Priority Date/Time Associated Diagnosis Comments XR KNEE CARLOS 4V OR > Routine 07/22/2023 10:45 AM EST documented in this encounter Results * XR KNEE CARLOS 4V OR > (07/22/2023 10:45 AM EST) Anatomical Region Laterality Modality Radiographic Renee ging us Shaikh Leanna WYNNE IMG XR PROCEDURES Final Result documented in this encounter Visit Diagnoses Not on filedocumented in this encounter Care Teams Hair Worker Relationship Specialty Start Date End Date Shaikh Ram MD PCP - General Internal Medicine 07/27/22 08/25/23 Shaikh Ram MD [address] [place] [phone] PCP - General Internal Medicine 08/26/23 02/28/24 Bakari Bhat MD [address] [place] [phone] PCP - General Family Medicine 02/29/24 Cathleen Malik NP [address] [place] [phone] Nurse Practitioner Family Medicine 02/29/24 Faisal Cr LPC Insurance Verification Rep Behavioral Health 08/31/24 documented as of this encounter
--- OUTSIDE RECORDS SUMMARY | 2024-12-27 11:41 | XMS_ITS | Encounter Summary ---
Author Organization [facility] Address [address] [place] [address] Care Team Providers Care Print Production Coordinator Name Role Phone Bakari Bhat MD Primary Care Provider [phone] Cathleen Malik NP Unavailable [phone] Faisal Cr LPC Unavailable Unavailable Encounter Details Date Type Department Care Team (Late st Contact Info) Description 03/25/2024 Abstract [facility] [address] [place] [address] Cathleen Malik NP Social History [...] Office Visit [facility] [address] [place] [phone] Onelia Simon NP [address] [place] [address] 01/25/2025 1:40 PM EDT Office Visit [facility] [address] [place] [address] Onelia Simon, [facility] [address] [place] [phone] documented as of this encounter Visit Diagnoses Not on filedocumented in this encounter Additional Health Concerns Assessment Noted Time PHQ-9 Depression Total Score: 15 024 3:36 PM EST documented as of this encounter Care Teams Print Production Coordinator Relationship Specialty Start Date End Date Bakari Bhat MD [address] [place] [address] PCP - General Family Medicine 02/29/24 Cathleen Malik NP [address] [place] [address] Nurse Practitioner Family Medicine 02/29/24 Faisal Cr LPC Data Integrity Specialist Behavioral Health 08/31/24 documented as of this encounter
--- OUTSIDE RECORDS SUMMARY | 2024-12-27 11:41 | XMS_ITS | Encounter Summary ---
Author Organization [facility] Address [address] [place] [address] Care Team Providers Care Lead Principal Technical Architect Name Role Phone Shaikh RICCI Ram Primary Care Provider [phone] Bakari Bhat MD Primary Care Provider [phone] Cathleen Malik ROOFING SUPERVISOR Unavailable [phone] Faisal Cr LPC Unavailable Unavailable Encounter Details Date Type Department Care Team (Late st Contact Info) Description 2023 Clinisync Result Encounter [facility] Department Unsolicited Shaikh Ram MD [address] [place] [id number] Social History Tobacco Use Types Packs/Day Years [...] Office Visit [facility] [address] [place] [phone] Onelia Simon NP [address] [place] [address] 01/25/2025 1:40 PM EDT Office Visit [facility] [address] [place] [phone] Onelia Simon NP [address] [place] [address] documented as of this encounter Procedures Procedure Name Priority Date/Time Associated Diagnosis Comments ECG 12-LEAD 2023 9:28 AM EST documented in this encounter Results * ECG 12-LEAD (2023 9:28 AM EST) Anatomical Region Laterality Modality Other 2023 9:28 AM EST Narrative 08/29/2023 7:11 AM EST The [address] [address] Electrocardiograph Report Signed Patient: RIGO BOLAÑOS MR#: [id number] : 1955 Acct:[id number] Age/Sex: 68 / M ADM Date: 08/28/23 Loc: CARD Attending Dr: Shaikh Leanna Holt Ordering Physician: Shaikh Yanet Ram Date of Service: 08/28/23 Procedure(s): ECG 12 lead Accession Number(s): [id number] cc: [facility] Test Date: 2023 Pat Name: RIGO BOLAÑOS Department: Room: - Gender: Male 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 Signed By: 08/29/23 0711 08/29/23710 DD/ 7 TD/TT: Hooker Machine Tender: Procedure Note Radiology, Radiologist, - 08/29/2023 [place] [address] Electrocardiograph Report Signed Patient: RIGO BOLAÑOS EMR#: [id number] : 1955cct:[id number] Age/Sex: 68 / MADM Date: 08/28/23 Loc: CARD Attending Dr: Shaikh Leanna Holt Ordering Physician: Shaikh Yanet Ram Date of Service: 08/28/23 Procedure(s): ECG 12 lead Accession Number(s): [id number] cc: [facility] Test Date: 2023 Pat Name: RIGO BOLAÑOS Department: Room: - Gender: Male Undergraduate Internship: : 1955 Requested By: SHAIKH LEANNA Order Number: [id number] Reading MD: JUAN MOMIN Measurements Intervals [place] Rate: 89 P: 51 NH: 159 QRS: 47 QRSD: 111 T: 47 QT: 337 QTc: 411 Interpretive Statements SINUS RHYTHM LOW QRS VOLTAGE IN PRECORDIAL LEADS [QRS DEFLECTION < 1.0 mV IN CHESTLEADS] MODERATE INTRAVENTRICULAR CONDUCTION DELAY [110+ ms QRS DURATION] No previous ECG available for comparison Electronically Signed On 08-29-2023 7:11:01 EST by JUAN MOMIN Dictated By: Juan Momin D.O. Signed By:08/29/23 0711 08/29/23710 DD/ 7 TD/TT: Hooker Machine Tender: us Shaikh Leanna [facility] Final Result documented in this encounter Visit Diagnoses Not on filedocumented in this encounter Additional Health Concerns Assessment Noted Time PHQ-9 Depression Total Score: 15 08/27/ 024 3:36 PM EST documented as of this encounter Care Teams Lead Principal Technical Architect Relationship Specialty Start Date End Date Shaikh Ram MD [address] [place] [address] PCP - General Internal Medicine 08/26/23 02/28/24 Bakari Bhat MD [address] [place] [address] PCP - General Family Medicine 02/29/24 Cathleen Malik NP [address] [place] [phone] Nurse Practitioner Family Medicine 02/29/24 Faisal Cr LPC [facility] 08/31/24 documented as of this encounter
[2024-12-27 12:42] LABS: Anion Gap 15.6; BUN Creatinine Ratio 18.8; Calcium 10.2 mg/dL (8.5-10.1); Carbon Dioxide 29.9 mmol/L (21.0-32.0); Chloride 98 mmol/L (98-107); Estimated GFR (African America >60 (>=60 mL/min/1.73m^2); Estimated GFR (Non-African Ame >60 (>=60 mL/min/1.73m^2); Glucose 177 mg/dL (74-106); Potassium 4.5 mmol/L (3.5-5.1); Sodium 139 mmol/L (136-145)
== END 2024-12-27 11:34 | disposition home or self-care (01) ==
LOC: LAB 11:38
PROVIDERS: PCP Nurse Practitioner; Visit Provider Nurse Practitioner
DX: E11.9 Type 2 diabetes mellitus without complications (principal); I10 Essential (primary) hypertension
CPT/HCPCS: 36415; 80048

== ENCOUNTER 2024-12-27 11:53 | Emergency (ER) | payer MEDICARE, SELFPAY ==
[2024-12-27 11:58] VITALS: BP 157/100; PULSE 84; TEMP 36.8; O2SAT 98; BMI 50.1
--- NOTE | 2024-12-27 12:09 | XR_ITS ---
The [address] [address] Patient Name: SHANNON DANIELS MRN: [id number] date: 1955 Sex: M Assigned Patient Location: ED.MAIN Current Patient Location: ED.MAIN Accession/Order Number: [id number] Exam Date: 12/27/2024 12:41 Report Date: 12/27/2024 12:43 At the request of: LIA LIN MD Procedure: XR lumbar spine 2-3V LUMBAR SPINE - 2 views COMPARISON: None CLINICAL DATA: Low back pain for the past week. No injury. AP and lateral views were obtained. There is subtle levoscoliotic curvature. There is approximately 4 mm anterolisthesis of L4 on L5. Alignment is otherwise maintained. There are no acute compression fractures. The disc spaces are uniform. There is calcification at the annulus of the L1-2 disc. Mild endplate spurring is present throughout. There is facet hypertrophy, greater distally. The SI joints are intact. There is mild sclerosis, asymmetric on the right where there could be partial ankylosis. There is a paraspinal soft tissue calcification at the L2 level on the right that might be associated with the urinary tract. No other paraspinal soft tissue abnormalities are seen. XR/XR lumbar spine 2-3V IMPRESSION: SUBTLE SCOLIOSIS AND MULTILEVEL DEGENERATIVE CHANGES, DESCRIBED. Impression dictated by: Krystal Maurice M.D. 12/27/2024 12:43 PM Dictation Location: [place] [address] Electronically authenticated by: [id number] Y Date: 12/27/2024 12:43
--- NOTE | 2024-12-27 12:11 | ED_ITS ---
HPI HPI - General Adult General Chief complaint: Back Pain/Injury Stated complaint: BACK PAIN Time Seen by Provider: 12/27/24 11:59 Source: patient Mode of arrival: walk-in Limitations: no limitations History of Present Illness HPI narrative: 69-year-old male presents for left lower back pain. He has had it for the past week and there was no injury or unusual activity except he was lifting some heavy items. There was no fall or specific injury. It does not radiate down his leg and he has no dysuria or hematuria. Related Data Previous Rx's ?Medication ?Instructions ?Recorded etodolac 300 mg capsule 300 mg PO Q8H PRN pain #20 c aps 12/27/24 methocarbamol 750 mg tablet 750 mg PO Q8H #20 tabs 10/18 Allergies Allergy/AdvReac Type Severity Reaction Status Date / Time No Known Drug Allergies Allergy Verified 12/27/24 11:57 Review of Systems ROS Narrative A ten point review of systems is negative except as noted above. PFSH PFSH Social History Little interest or pleasure in doing things: not at all Feeling down, depressed, or hopeless: not at all Exam Narrative Exam Narrative: Nurses note and vital signs reviewed and patient is not hypoxic. General: The patient appears well and in no apparent distress. Patient is resting comfortably on cart. Skin: Warm, dry, no pallor noted. There is no rash noted. Head: Normocephalic, atraumatic Eye: Normal conjunctiva, no drainage Ears, Nose, Mouth, and Throat: oral mucosa is moist. Nares patent. Cardiovascular: Regular Rate and Rhythm Respiratory: Patient is in no distress, no accessory muscle use, lungs are clear to auscultation, no wheezing, rales or rhonchi Back: His back has no bruise rash or abrasion. No ecchymosis or other skin defect. He has no focal area of tenderness to palpation GI: Obese and nontender Musculoskeletal: The patient has no evidence of calf tenderness, no pitting edema, symmetrical pulses noted bilaterally Neurological: A&O, normal speech Psychiatric: Cooperative Constitutional Vital Signs, click to edit/add: Last Vital Signs Temp 98.3 F 12/27/24 11:58 Pulse 84 12/27/24 11:58 Resp 18 12/27/24 11:58 BP 157/100 H 12/27/24 11:58 Pulse Ox 98 12/27/24 11:58 O2 Del Method Room Air 12/27/24 11:58 Course Vital Signs Vital signs: Vital Signs Temperature 98.3 F 12/27/24 11:58 Pulse Rate 84 12/27/24 11:58 Respiratory Rate 18 12/27/24 11:58 Blood Pressure 157/100 H 12/27/24 11:58 Pulse Oximetry 98 12/27/24 11:58 Oxygen Delivery Method Room Air 12/27/24 11:58 Temperature 98.3 F 12/27/24 11:58 Pulse Rate 84 12/27/24 11:58 Respiratory Rate 18 12/27/24 11:58 Blood Pressure 157/100 H 12/27/24 11:58 Pulse Oximetry 98 12/27/24 11:58 Oxygen Delivery Method Room Air 12/27/24 11:58 Medical Decision Making MDM Narrative Medical decision making narrative: You are now this is negative and x-rays show mild degenerative changes, nothing acute. He was given IM Toradol and is prescribed home on Lodine and methocarbamol. Treatment diagnosis and follow-up were discussed with the patient. My clinical impression is that this is musculoskeletal in nature. Differential Diagnosis Differential Diagnosis: Compression fracture, muscle strain, UTI Lab Data Lab results reviewed: Yes I reviewed the patient's lab results Labs: Lab Results 12/27/24 Range/Units 12:20 Urine Color Yellow (YELLOW) Urine Clarity Clear (CLEAR) Urine pH 6.0 (5.0-9.0) Ur Specific [place] 1.025 (1.005-1.025) Urine Protein Negative (NEG/TRACE) mg/dL Urine Glucose (UA) Negative (NEGATIVE) mg/dL Urine Ketones Negative (NEGATIVE) mg/dL Urine Occult Blood Negative (NEGATIVE) Urine Nitrite Negative (NEGATIVE) Urine Bilirubin Negative (NEGATIVE) Urine Urobilinogen 0.2 (0.2-1.0) EU/dL Ur Leukocyte Esterase Negative (NEGATIVE) Urine RBC 0-2 (0-2) #/HPF Urine WBC 0-2 A (NONE SEEN) #/HPF Ur Squamous Epith Cells Rare (NONE/RARE) #/LPF Urine Crystals None seen (None Seen) #/HPF Urine Bacteria Trace A (NONE SEEN) #/HPF Urine Casts None seen (NONE SEEN) #/LPF Urine Mucus Trace A (NONE SEEN) Imaging Data Lumbar x-ray: Radiologist's impression: ITS Impressions Lumbar Spine X-Ray 12/27/24 12:09 IMPRESSION: SUBTLE SCOLIOSIS AND MULTILEVEL DEGENERATIVE CHANGES, DESCRIBED. Impression dictated by: Krystal Maurice M.D. 12/27/2024 12:43 PM Dictation Location: [place] [address] Electronically authenticated by: [id number] Y Date: 12/27/2024 12:43 Discharge Plan Discharge Chief Complaint: Back Pain/Injury Clinical Impression: Low back pain Patient Disposition: Home, Self-Care Time of Disposition Decision: 13:11 Condition: Good Mode of Transportation: Private Vehicle Prescriptions / Home Meds: New etodolac 300 mg capsule 300 mg PO Q8H PRN (Reason: pain) Qty: 20 0RF methocarbamol 750 mg tablet 750 mg PO Q8H Qty: 20 0RF Print Language: Guyanese Instructions: Acute Low Back Pain (ED) Referrals: Onelia Simon NP [Primary Care Provider, Family Practice] - 1 week
[2024-12-27 12:42] LABS: Bilirubin Urine NEGATIVE (NEGATIVE); Blood Urine NEGATIVE (NEGATIVE); Clarity Urine CLEAR (CLEAR); Color Urine YELLOW (YELLOW); Glucose Urine UA NEGATIVE (NEGATIVE); Ketones Urine NEGATIVE (NEGATIVE); Leukocyte Esterase Urine NEGATIVE (NEGATIVE); Nitrite Urine NEGATIVE (NEGATIVE); Protein Urine NEGATIVE (NEG/TRACE); Specific Gravity Urine 1.025 (1.005-1.025); Urobilinogen Urine 0.2 EU/dL (0.2-1.0)
[2024-12-27 12:54] LABS: Bacteria Urine TRACE #/HPF (NONE SEEN); Cast Seen? NONE SEEN #/LPF (NONE SEEN); Crystals Seen? None Seen #/HPF (None Seen); Mucus Urine TRACE (NONE SEEN); RBC Urine 0-2 #/HPF (0-2); Squamous Epithelial Cell Urine RARE #/LPF (NONE/RARE); WBC Urine 0-2 #/HPF (NONE SEEN)
[2024-12-27] MEDS: KETOROLAC TROMETHAMINE 60 MG/2 ML VIAL IM (13:25)
== END 2024-12-27 13:29 | disposition home or self-care (01) ==
PROVIDERS: Emergency Provider Emergency Medicine; PCP Nurse Practitioner
DX: M54.50 Low back pain, unspecified (principal); X50.0XXA Overexertion from strenuous movement or load, initial encounter; M51.369 Other intervertebral disc degeneration, lumbar region without mention of lumbar back pain or lower extremity pain; I10 Essential (primary) hypertension; E11.9 Type 2 diabetes mellitus without complications
CPT/HCPCS: 36415; 72100; 80048; 81001; 96372; 99285; J1885

== ENCOUNTER 2025-01-04 12:48 | Outpatient (OUT) | payer MEDICARE, SELFPAY ==
--- NOTE | 2025-01-04 13:38 | CA_ITS ---
Patient Name: SHANNON DANIELS MR#: [id number] : 1955 Exam Date: 01/04/2025 Ordering Doctor: BASIM FLYNN CNP ECHOCARDIOGRAM REPORT PROCEDURE: CA ECHO DOPPLER COMPLETE INDICATIONS: JEFF, HTN, IQBAL, BLEE COMPARISON: None. DESCRIPTION: COMPLETE ECHOCARDIOGRAM Real-time transthoracic echocardiography with 2D, M-mode, spectral and color flow Doppler performed. QUALITY: Technical quality was limited because of body habitus. Suboptimal image quality. Contrast imaging is recommended if clinically warranted. LEFT VENTRICLE: Normal chamber size. Moderate concentric left ventricular hypertrophy. Global left ventricular systolic function is normal. LV EF: Visual estimation of left ventricular ejection fraction is 55%. DIASTOLIC: ATRIAL SEPTUM: LEFT ATRIUM: Mild dilatation. RIGHT ATRIUM: Mild dilatation. RIGHT VENTRICLE: Normal chamber size. Normal right ventricular systolic function. TRICUSPID VALVE: Normal mobility and thickness. No regurgitation. Unable to assess right-sided pressures due to lack of measurable tricuspid regurgitation. MITRAL VALVE: Normal mobility and thickness. There is no mitral annular calcification. No mitral regurgitation. AORTIC VALVE: Normal trileaflet appearance. No visible sclerosis. Normal leaflet mobility. No evidence of aortic valve stenosis. No aortic regurgitation. AORTIC ROOT: Normal diameter and appearance, measuring 3.8 cm. Normal size ascending aorta measuring 3.3 cm. PULMONIC VALVE: Not well visualized. PERICARDIUM: No evidence of pericardial effusion. IVC: Collapses with inspiration. Normal size. PLEURA: CONCLUSION: 1. Moderate concentric left ventricular hypertrophy with normal systolic function. LVEF is estimated at 55%. Segmental wall motion cannot be assessed accurately due to poor sound transmission. 2. Normal right ventricular size and systolic function. 3. Mild biatrial dilatation. 4. No significant valvular dysfunction. 5. Unable to assess right-sided pressures due to lack of measurable tricuspid regurgitation. Adult Echocardiography Procedure Report Left Ventricle LVEDD (3.7 - 5.6 cm): 4.42 cm LVESD (2.2 - 4.0 cm): 2.90 cm LVIVS thickness (0.6 - 1.2 cm): 1.37 cm LVPW thickness (0.5 - 1.0 cm): 1.40 cm LVOT Max Gradient: 2.75 mm[Hg] LVOT Area (cm2): 0.83 m/s Peak Velocity (LVOT): 0.83 m/s LVOT Diameter 2.40 cm Left Atrium Left Atrium Systolic Dimension: 3.47 cm Mitral Valve MV E to A Ratio: 0.88 Mitral Valve A-Wave Peak Velocity: 0.83 m/s Mitral Valve E-Wave Peak Velocity: 0.73 m/s Right Ventricle RV Internal Diastolic Dimension: 4.45 cm Aorta AO Root Diam: 3.81 cm Ascending Ao Diam: 3.28 cm Aortic Valve AoV Area (Peak Alex): 3.82 cm2, 3.82 cm2 Peak Velocity(Antegrade Flow): 0.98 m/s Peak Gradient(Antegrade Flow): 3.87 mm[Hg] Tricuspid Valve Pulmonic Valve Peak Velocity: 0.83 m/s Peak Gradient: 2.71 mm[Hg], 2.80 mm[Hg] Right Atrium Right Atrium Systolic Pressure: 57.37 ml, 57.37 ml Dictated by: Anjel Webb M.D. on 01/04/2025 at 17:53 Approved by: Anjel Webb M.D. on 01/04/2025 at 18:00
== END 2025-01-04 12:49 | disposition home or self-care (01) ==
LOC: CARD 12:49
PROVIDERS: PCP Nurse Practitioner; Visit Provider Nurse Practitioner
DX: G47.33 Obstructive sleep apnea (adult) (pediatric) (principal); I10 Essential (primary) hypertension; R06.09 Other forms of dyspnea; R60.0 Localized edema; E83.52 Hypercalcemia
CPT/HCPCS: 36415; 82306; 93306

== ENCOUNTER 2025-01-17 07:26 | Outpatient (OUT) | payer MEDICARE, SELFPAY ==
--- OUTSIDE RECORDS SUMMARY | 2025-01-11 14:20 | XMS_ITS | Encounter Summary ---
Author Organization [facility] Address [address] [place] [address] Care Team Providers Care Musical Instruments Assembler Name Role Phone Bakari Bhat MD Primary Care Provider [phone] Cathleen Malik NP Unavailable [phone] Faisal Cr LPC Unavailable Unavailable Reason for Referral * Imaging (Routine) - Authorized Specialty Diagnoses / Procedures Referred By Contac t Referred To Contact Acute [facility] Diagnoses Dyspnea on exertion Procedures CT chest w IV contrast Onelia Simon NP [address] [place] [address] Phone: tel: fax: [facility] [address] [place] [address] Referral ID Status Reason Start Date Expiration Date V isits Requested Visits Authorized [id number] Authorized 01/11/2025 07/10/2025 1 1 Reason for Visit * Reason Comments Medicare Annual Wellness Visit Initial Encounter Details Date Type Department Care Team (Late st Contact Info) Description 01/11/2025 2:20 PM EDT Office Visit [facility] [address] [place] [phone] Onelia Simon NP [address] [place] [address] Medicare annual wellness visit, subsequent (Primary Dx); JEFF (obstructive sleep apnea); Primary hypertension ; Class 3 severe obesity due to excess calories without serious comorbidity with body mass index (BMI) of 50.0 to 59.9 in adult ([facility]); Type 2 diabetes mellitus without complication, without long-term current use of insulin ([facility]); IQBAL (dyspnea on exertion); Dyspnea on exertion [...] EDT PFT and CT chest at [facility], they should call you documented in this [...] in evening Activity: no, has membership for [employer] [facility] Concerns: depression/anxiety Falls in the [...] D-3) 50 mcg, Oral, Daily Continuous Glucose Senior Enlisted Advisor (FreeStyle Anamaria 3 [place]) device 1 each, Does not apply, Continuous [...] (BMI) of 50.0 to 59.9 in adult ([facility]) 07/09/2023 Depression Diabetes mellitus, type II ([facility]) History of medical problems BL arms Hyperlipidemia [...] (BMI) of 50.0 to 59.9 in adult ([facility]) Discussed with patient their BMI (actual, verses [...] (BMI) of 50.0 to 59.9 in adult ([facility]) Discussed with patient their BMI (actual, verses [...] Visit [facility] [address] [place] [address] Onelia Simon NP [address] [place] [address] 01/17/2026 5:00 PM EDT Office Visit [facility] [address] [place] [address] Onelia Simon NP [address] [place] [address] Scheduled Orders Name Type Priority Associated Diagnoses Orde r Schedule CT chest w IV contrast Imaging Routine Dyspnea on exertion Expected: 01/11/2025 (Approximate), Expires: 01/11/2026 Pulmonary Function Test Imaging Routine Dyspnea on exertion Expected: 01/11/2025 (Approximate), Expires: 01/11/2026 Creatinine Lab Routine Primary hypertension Type 2 diabetes mellitus without complication, without long-term current use of insulin ([facility]) IQBAL (dyspnea on exertion) Expected: 01/11/2025 (Approximate), Expires: 01/11/2026 documented as of this encounter Visit Diagnoses Diagnosis Medicare annual wellness visit, subsequent- Primary JEFF (obstructive sleep apnea) Obstructive sleep apnea (adult) (pediatric) Primary hypertension Unspecified essential hypertension Class 3 severe obesity due to excess calories without serious comorbidity with body mass index (BMI) of 50.0 to 59.9 in adult ([facility]) Type 2 diabetes mellitus without complication, without long-term current use of insulin (HCC) IQBAL (dyspnea on exertion) Other dyspnea and respiratory abnormality Dyspnea on exertion Other dyspnea and respiratory abnormality documented in this encounter Additional Health Concerns Assessment Noted Time PHQ-9 Depression Total Score: 15 08/27/ 024 3:36 PM EST documented as of this encounter Care Teams Musical Instruments Assembler Relationship Specialty Start Date End Date Bakari Bhat MD [address] [place] [address] PCP - General Family Medicine 02/29/24 Cathleen Malik NP [address] [place] [phone] Nurse Practitioner Family Medicine 02/29/24 Faisal Cr LPC Wool Cleaner Behavioral Health 08/31/24 documented as of this encounter
--- NOTE | 2025-01-17 | RT_ITS ---
[facility] Test Date: 2025-01-17 Pat Name: SHANNON DANIELS Department: Room: - Gender: Male Seismographer: Clementine Moss RRT : 1955 Requested By: STEWART FLYNN Order Number: [id number] Reading MD: Ishan Hurst Interpretive Statements Pulmonary function testing was completed according to ATS criteria. Findings were considered accurate and reproducible. Both pre- and post-bronchodilator values utilized for spirometry. Spirometry (based on pre-bronchodilator values): -FEV1/FVC: Normal @ 82% -FEV1: Reduced @ 68% -FVC: Moderately reduced @ 61% -There is no significant bronchodilator response. Lung volumes by plethysmography (based on pre-bronchodilator values): -RV: Normal @ 103% -TLC: Mildly reduced @ 75% Diffusion capacity: -DLCO: Normal @ 92% when corrected for Hb 15.3g/dL Impressions: -Spirometry shows a moderate restriction pattern which is confirmed with a reduced TLC. There is no diffusion impairment. This pattern can be seen in restrictive conditions including neuromuscular disease, pleural disorders, and obesity. Clinical correlation required. Electronically Signed On 01-19-2025 15:42:13 EDT by Ishan Hurst
--- OUTSIDE RECORDS SUMMARY | 2025-01-17 07:29 | XMS_ITS | Encounter Summary ---
Author Organization [facility] tem Address [id number] [address] [place] [address] Care Team Providers Care Brick Pitcher Name Role Phone Mary Alice Schultz EXERCISE EQUIPMENT SPECIALIST-CLAMP JIG ASSEMBLER Primary Care Provider Encounter Details Date Type Department Care Team (Late st Contact Info) Description 07/02/2022 Telephone [facility] Internal Medicine - Family Medicine [address] [place] [address] Evita Larose MA Social History Tobacco Use [...] on filedocumented in this encounter Care Teams Brick Pitcher Relationship Specialty Start Date End Date Mary Alice Schultz APRN-BASIM [address] [place], [place] [phone] PCP - General Family Medicine 08/27/17 documented as of this encounter
--- OUTSIDE RECORDS SUMMARY | 2025-01-17 07:29 | XMS_ITS | Encounter Summary ---
Author Organization [facility] Address [id number] [address] [place] [address] Care Team Providers Care Machine Quilt Stuffer Name Role Phone Mary Alice Schultz Primary Care Provider Reason for Visit * Reason Onset Date Comments Med Refill 10/21/2022 Encounter Details Date Type Department Care Team (Late st Contact Info) Description 10/21/2022 Refill [facility] Internal Medicine - Family Medicine [address] [place] [address] Mary Alice Schultz APRN-CNP [facility] [place], [place] [phone] Social History Tobacco Use Types Packs/Day Years [...] on filedocumented in this encounter Care Teams Machine Quilt Stuffer Relationship Specialty Start Date End Date Mary Alice Schultz APRN-CNP [address] [place] [address] PCP - General Family Medicine 08/27/17 documented as of this encounter
--- OUTSIDE RECORDS SUMMARY | 2025-01-17 07:29 | XMS_ITS | Encounter Summary ---
Author Organization [facility] Address [address] [facility] [place] [address] Care Team Providers Care Concrete Plant Laborer Name Role Phone Bakari Bhat MD Primary Care Provider [phone] Cathleen Malik CMM PROGRAMMER Unavailable [phone] Faisal Cr LPC Unavailable Unavailable Encounter Details Date Type Department Care Team (Late st Contact Info) Description 05/05/2024 [facility] [address] [place] [address] Van Trinh MD [address] [address] [place] [phone] Social History Tobacco Use Types Packs/Day Years [...] 03/14/2025 2:00 PM EDT Office Visit [facility] [address] [place] [address] Onelia Simon NP [address] [place] [address] 01/17/2026 5:00 PM EDT Office Visit [facility] [address] [place] [address] Onelia Simon NP [address] [place] [address] documented as of this encounter Procedures Procedure [...] documented as of this encounter Care Teams Concrete Plant Laborer Relationship Specialty Start Date End Date Bakari Bhat MD [address] [place] [address] PCP - General Family Medicine 02/29/24 Cathleen Malik NP [address] [place] [address] Nurse Practitioner Family Medicine 02/29/24 Faisal Cr LPC Plate Glass Installer Helper Behavioral Health 08/31/24 documented as of this encounter
--- OUTSIDE RECORDS SUMMARY | 2025-01-17 07:29 | XMS_ITS | CCD ---
Author Organization [facility] Care Team Providers Care Automotive Engineering Technician Name Role Phone Ema Mitchell Unavailable SHAIKH Shadi RAM Attending Unavailable FAWWAD, PATINO H Admitting Unavailable FAWWAD, PATINO H Primary Care Unavailable FAWWAD, PATINO H Admitting Unavailable FAWWAD, PATINO H Primary Care Unavailable FAWWAD, PATINO H Consulting Unavailable FAWWAJose Guadalupe, PATINO H Attending Unavailable Ban Heaton Unavailable Shaikh Ram MD Primary Care Provider NON STAFF Primary Care Provider UnavailMD Van Pradhan Attending Provider [phone] Van Trinh Attending Unavailable Van Trinh Admitting Unavailable NON STAFF Primary Care Unavailable Bakari Bhat MD Primary Care Provider [phone] Cathleen Malik NP Unavailable [facility] Unavailable Unavailable Cathleen Malik NP Unavailable EMMANUEL WYATT Attending Unavailable CATHLEEN MALIK Attending UnavailONELIA Ashley Attending Unavailable ONELIA SIMON Attending Unavailable CATHLEEN MALIK Attending UnavailEMMANUEL Al Attending Unavailable CATHLEEN MALIK Referring Unavailroger e CATHLEEN MALIK Attending UnavailIRA De Dios Attending Unavailable CATHLEEN MALIK Referring Unavailabl e Medications Current Medications Medication Drug Class(es) Dates [...] / zinc oxide 40 mg oral tablet (20 sources) Vitamin C Start: 10-31-2024 take 1 tablet by mouth once daily Multiple Vitamin (Multivitamin Adult) tablet Indications: Type 2 diabetes mellitus without complication, without long-term current use of insulin (HCC) Take 1 each by mouth Daily 90 tablet 10/31/2024 Active End: 10-31-2024 Multiple Vitamin (Multivitam in Adult) tablet Orally 10/31/2024 Discontinued (Reorder) aspirin 81 mg delayed release oral tablet (20 sources) Platelet Aggregation Inhibitor, Nonsteroidal Anti-inflammatory Drug Start: 10-31-2024 End: 10-31-2024 take 1 tablet by mouth in the morning aspirin 81 MG EC tablet Indications: Type 2 diabetes mellitus without complication, without long-term current use of insulin (HCC) Take 1 tablet (81 mg) by mouth in the morning. 90 tablet 10/31/2024 Active Start: 04-18-2024 take 81 mg by mouth once daily Aspirin Active 81 MG PO Daily April 18, 2024 12:00am End: 03-24-2024 aspirin 81 MG chewable table t Chew 81 mg in the morning. 03/24/2024 Discontinued (Duplicate order) carvedilol 12.5 mg oral tablet (20 sources) alpha-Adrenergic Gabby, beta-Adrenergic Gabby Start: 09-28-2024 End: 10-31-2024 take 1 tablet by mouth once carvedilol (Coreg) 12.5 MG tablet Indications: Essential (primary) hypertension Take 1 tablet (12.5 mg) by mouth every 12 (twelve) hours 180 tablet 10/31/2024 Active Start: 04-18-2024 take 12.5 mg by mout h once daily at mealtime Carvedilol Active 12.5 MG PO Daily April 18, 2024 12:00am must administer with a meal/food Start: 11-10-2023 take 1 tablet by ronda th every twelve hours carvedilol (Coreg) 12.5 MG tablet Indications: Essential (primary) hypertension (CMS/HCC) TAKE 1 TABLET BY MOUTH EVERY 12 HOURS 180 tablet 1 11/10/2023 Active take 1 tablet by ronda th every twelve hours carvedilol (Coreg) 12.5 MG tablet Take 12.5 mg by mouth every 12 (twelve) hours 0 Active cephalexin 500 mg oral capsule (1 source) Cephalosporin Antibacterial Start: 03-09-2023 take 1 capsule by mouth every eight hours Cephalexin 500 MG 1 capsule Orally every 8 hrs for 7 days Feb, Active cholecalciferol 0.05 mg oral tablet (4 sources) Vitamin D Start: 01-05-2025 End: 02-04-2025 take 1 tablet by mouth once daily cholecalciferol (Vitamin D-3) 50 MCG (1999 UT) tablet Indications: Vitamin D deficiency Take 1 tablet (50 mcg) by mouth Daily 30 tablet 2 01/05/2025 02/04/2025 Active Continuous Glucose Elevator Repairer (FreeStyle Anamaria 2 Fillmore) device (6 sources) Start: 03-24-2024 End: 04-21-2024 Continuous Glucose Elevator Repairer (FreeStyle Anamaria 2 Fillmore) device Indications: Type 2 diabetes mellitus without complication, without long-term current use of insulin (CMS/[facility]) Inject 1 each under the skin continuously for 28 days 1 each 03/24/2024 04/21/2024 Active Continuous Glucose Elevator Repairer (FreeStyle Anamaria 3 Fillmore) device (14 sources) Start: 10-31-2024 Continuous Glucose Elevator Repairer (FreeStyle Anamaria 3 Fillmore) device Indications: Type 2 diabetes mellitus without complication, without long-term current use of insulin ([facility]) 1 each continuously 1 each 10/31/2024 Active Start: 10-31-2024 Continuous Glu cose Elevator Repairer (FreeStyle Anamaria 3 Fillmore) device Indications: Type 2 diabetes mellitus without complication, without long-term current use of insulin 1 each continuously 1 each 10/31/2024 Active Start: 09-13-2024 End: 10-31-2024 Continuous Glucose Elevator Repairer (FreeStyle Anamaria 3 Fillmore) device Indications: Type 2 diabetes mellitus without complication, without long-term current use of insulin 1 each continuously 1 each 09/13/2024 10/31/2024 Discontinued (Reorder) Start: 09-13-2024 Continuous Glu cose Elevator Repairer (FreeStyle Anamaria 3 Fillmore) device Indications: Type 2 diabetes mellitus without complication, without long-term current use of insulin (CMS/HCC) 1 each continuously 1 each 09/13/2024 Active Continuous Glucose Sensor (FreeStyle Anamaria 3 Plus Sensor) misc (14 sources) Start: 10-31-2024 Continuous Glu cose Sensor (FreeStyle Anamaria 3 Plus Sensor) mis Indications: Type 2 diabetes mellitus without complication, without long-term current use of insulin ([facility]) 1 each continuously 2 each 11 10/31/2024 Active Start: 10-31-2024 Continuous Glu cose Sensor (FreeStyle Anamaria 3 Plus Sensor) mis Indications: Type 2 diabetes mellitus without complication, without long-term current use of insulin 1 each continuously 2 each 10/31/2024 Active Start: 09-13-2024 End: 10-31-2024 Continuous Glucose Sensor (F reeStyle Anamaria 3 Plus Sensor) [facility] Indications: Type 2 diabetes mellitus without complication, without long-term current use of insulin 1 each continuously 2 each 09/13/2024 10/31/2024 Discontinued (Reorder) Start: 09-13-2024 Continuous Glu cose Sensor (FreeStyle Anamaria 3 Plus Sensor) [facility] Indications: Type 2 diabetes mellitus without complication, without long-term current use of insulin (CMS/[facility]) 1 each continuously 2 each 09/13/2024 Active 0.5 ml dulaglutide 3 mg/ml auto-injector (3 sources) GLP-1 Receptor Agonist inject 1.5 mg by subcutaneous injection every week Trulicity 1.5 MG/0.5ML solution pen-injector INJECT 1.5 mg SUBCUTANEOUSLY once a week 0 Active DULoxetine 60 mg delayed release oral capsule (20 sources) Serotonin and Norepinephrine Reuptake Inhibitor Start: 2024 End: 2024 take 1 capsule by mouth once daily DULoxetine (Cymbalta) [address] capsule Indications: Moderate episode of recurrent major depressive disorder (HCC) Take 1 capsule (60 mg) by mouth Daily Do not crush or chew. 90 capsule 12/14/2024 03/14/2025 Active Start: 11-03-2023 End: 12-14-2024 take 1 capsule by mouth once daily DULoxetine (Cymbalta) [address] capsule Indications: Other specified anxiety disorders Take 1 capsule (30 mg) by mouth Daily 90 capsule 10/31/2024 12/14/2024 Discontinued (Ineffective) Start: 09-07-2023 take 1 capsule by mo ut once daily DULoxetine (Cymbalta) [address] capsule Indications: Other specified anxiety disorders TAKE 1 CAPSULE BY MOUTH DAILY 30 capsule 0 09/07/2023 Active Start: 08-13-2023 take 1 capsule by mo ut once daily DULoxetine (Cymbalta) [address] capsule Indications: Other specified anxiety disorders TAKE 1 CAPSULE BY MOUTH DAILY 30 capsule 0 08/13/2023 Active etodolac 300 mg oral capsule (3 sources) Nonsteroidal Anti-inflammatory Drug Start: 12-27-2024 take 1 capsule by mouth every eight hours as needed for pain etodolac (Lodine) 300 MG capsule TAKE 1 CAPSULE BY MOUTH EVERY 8 HOURS NEEDED FOR PAIN 12/27/2024 Active furosemide 40 mg oral tablet (2 sources) Loop Diuretic take 1 tablet by mouth every twenty-fou r hours Furosemide 40 MG 1 tablet Orally Once a day Active gabapentin 100 mg oral capsule (20 sources) Anti-epileptic Agent Start: 06-16-2024 End: 12-12-2024 take 1 capsule by mouth in the morning gabapentin (Neurontin) 100 MG capsule Indications: Type 2 diabetes mellitus with polyneuropathy (HCC) Take 1 capsule (100 mg) by mouth in the morning and 1 capsule (100 mg) before bedtime. 180 capsule 10/31/2024 Active hydroCHLOROthiazide 25 mg / lisinopril 20 mg oral tablet (20 sources) Thiazide Diuretic, Angiotensin Converting Enzyme Inhibitor Start: 07-27-2024 End: 10-31-2024 take 1 tablet by mouth once daily lisinopril-hydroC HLOROthiazide 20-25 MG tablet Indications: Essential (primary) hypertension Take 1 tablet by mouth Daily 90 tablet 10/31/2024 Active Start: 02-01-2024 End: 07-25-2024 take 1 tablet by mouth once daily lisinopril-hydroCHLOROthiazide 20-25 MG tablet Indications: Essential (primary) hypertension (CMS/HCC) TAKE 1 TABLET BY MOUTH DAILY 90 tablet 1 02/01/2024 07/25/2024 Discontinued (Reorder) take 1 tablet by ronda th in the morning lisinopril-hydroCHLOROthiazide 20-25 MG tablet Take 1 tablet by mouth in the morning. 0 Active latanoprost 0.05 mg/ml ophthalmic solution (13 sources) Prostaglandin Analog Start: 06-30-2024 take 1 drop(s) into the eye(s) at bedtime latanoprost (Xalatan) 0.005 % ophthalmic solution Administer 1 drop into both eyes at bedtime 06/30/2024 Active lisinopril 10 mg oral tablet (2 sources) Angiotensin Converting Enzyme Inhibitor take 1 tablet by mouth every twenty-four hours Lisinopril 10 MG 1 tablet Orally Once a day Active metFORMIN hydrochloride 1000 mg oral tablet (20 sources) Biguanide Start: 04-18-2024 take 500 mg by mouth twice daily Metformin Active 500 MG PO Twice daily April 18, 2024 12:00am Start: 02-01-2024 End: 10-31-2024 take 1 tablet by mouth in the morning metFORMIN (Glucophage) 1000 MG tablet Indications: Type 2 diabetes mellitus without complications (HCC) Take 1 tablet (1,000 mg) by mouth in the morning and 1 tablet (1,000 mg) before bedtime. 180 tablet 10/31/2024 Active take 1 tablet by ronda th in the morning metFORMIN (Glucophage) 1000 MG tablet Take 1,000 mg by mouth in the morning and 1,000 mg before bedtime. 0 Active take 1 tablet by ronda th every twelve hours metFORMIN HCl 500 MG 1 tablet with meals Orally Twice a day Active methocarbamol 750 mg oral tablet (3 sources) Muscle Relaxant Start: 12-27-2024 take 1 tablet by mouth every eight hours methocarbamol (Robaxin) 750 MG tablet Take 750 mg by mouth every 8 (eight) hours 12/27/2024 Active Multivitamin Adult - (2 sources) Multivitamin Justin lt - Orally Active Multivitamin-Mineral s-Lutein (Multivitamin 50 Plus) tablet (1 source) Start: 04-18-2024 Multivitamin-M inera ls-Lutein (Multivitamin 50 Plus) tablet Active 1 TAB PO Daily April 18, 2024 12:00am PARoxetine hydrochloride 20 mg oral tablet (20 sources) Serotonin Reuptake Inhibitor Start: 06-16-2023 End: 09-13-2024 take 1 tablet by mouth in the morning PARoxetine (Paxil) 20 MG tablet Take 20 mg by mouth in the morning. 0 06/16/2023 Active pravastatin sodium 40 mg oral tablet (20 sources) HMG-CoA Reductase Inhibitor Start: 07-27-2024 End: 10-31-2024 take 1 tablet by mouth once daily pravastatin (Pravachol) 40 MG tablet Indications: Hyperlipidemia, unspecified Take 1 tablet (40 mg) by mouth Daily 90 tablet 10/31/2024 Active Start: 02-01-2024 End: 07-25-2024 take 1 tablet by mouth once daily pravastatin (Pravachol) 40 MG tablet Indications: Hyperlipidemia, unspecified (CMS/HCC) TAKE 1 TABLET BY MOUTH DAILY 90 tablet 1 02/01/2024 07/25/2024 Discontinued (Reorder) take 1 tablet by ronda th in the morning pravastatin (Pravachol) 40 MG tablet Take 40 mg by mouth in the morning. 0 Active semaglutide (Ozempic, 1 MG/DOSE,) 4 MG/3ML solution pen-injector (20 sources) Start: 10-31-2024 End: 01-29-2025 inject 1 mg by subcutaneous injection every week semaglutide (Ozempic, 1 MG/DOSE,) 4 MG/3ML solution pen-injector Indications: Type 2 diabetes mellitus without complication, without long-term current use of insulin (HCC) Inject 1 mg under the skin 1 (one) time per week 9 mL 10/31/2024 01/29/2025 Active Start: 10-31-2024 End: 01-29-2025 inject 1 mg by subcutaneous injection every week semaglutide (Ozempic, 1 MG/DOSE,) 4 MG/3ML solution pen-injector Indications: Type 2 diabetes mellitus without complication, without long-term current use of insulin Inject 1 mg under the skin 1 (one) time per week 9 mL 10/31/2024 01/29/2025 Active Start: 08-01-2024 End: 10-31-2024 inject 1 mg by subcutaneous injection every week semaglutide (Ozempic, 1 MG/DOSE,) 4 MG/3ML solution pen-injector Indications: Type 2 diabetes mellitus without complication, without long-term current use of insulin Inject 1 mg under the skin 1 (one) time per week 9 mL 08/01/2024 10/31/2024 Discontinued (Reorder) Start: 08-01-2024 End: 10-30-2024 inject 1 mg by subcutaneous injection every week semaglutide (Ozempic, 1 MG/DOSE,) 4 MG/3ML solution pen-injector Indications: Type 2 diabetes mellitus without complication, without long-term current use of insulin (CMS/HCC) Inject 1 mg under the skin 1 (one) time per week 9 mL 08/01/2024 10/30/2024 Active Start: 12-23-2023 End: 08-01-2024 inject 1 mg by subcutaneous injection every week semaglutide (Ozempic, 1 MG/DOSE,) 4 MG/3ML solution pen-injector Indications: Type 2 diabetes mellitus without complication, without long-term current use of insulin (CMS/HCC) Inject 1 mg under the skin 1 (one) time per week 9 mL 12/23/2023 08/01/2024 Discontinued (Reorder) Start: 12-23-2023 inject 1 mg by subcu taneous injection every week semaglutide (Ozempic, 1 MG/DOSE,) 4 MG/3ML solution pen-injector Indications: Type 2 diabetes mellitus without complication, without long-term current use of insulin (CMS/HCC) Inject 1 mg under the skin 1 (one) time per week 9 mL 12/23/2023 Active traMADol hydrochloride 50 mg oral tablet [...] the morning Orally Once a day Active Continuous Blood Gluc Receiv er (FreeStyle Anamaria 2 Fillmore) device (6 sources) Start: 06-15-2023 End: 03-24-2024 Continuous Blood Gluc Receiv er (FreeStyle Anamaria 2 Fillmore) device USE DIRECTED to test BLOOD SUGAR 06/15/2023 03/24/2024 Discontinued (Reorder) Start: 06-15-2023 Continuous Blo od Gluc Elevator Repairer (FreeStyle Anamaria 2 Fillmore) device USE DIRECTED to test BLOOD SUGAR 06/15/2023 Active Start: 06-15-2023 Continuous Blo od Gluc Elevator Repairer (FreeStyle Anamaria 2 Fillmore) device USE DIRECTED to test BLOOD SUGAR 0 06/15/2023 Active Continuous Blood Gluc Sensor (FreeStyle Anamaria 2 Sensor) misc (6 sources) Start: 06-15-2023 End: 03-24-2024 Continuous Blood Gluc Sensor (FreeStyle Anamaria 2 Sensor) misc USE DIRECTED to test BLOOD SUGAR; change EVERY 14 days 06/15/2023 03/24/2024 Discontinued (Reorder) Start: 06-15-2023 Continuous Blo od Gluc Sensor (FreeStyle Anamaria 2 Sensor) misc USE DIRECTED to test BLOOD SUGAR; change EVERY 14 days 06/15/2023 Active Start: 06-15-2023 Continuous Blo od Gluc Sensor (FreeStyle Anamaria 2 Sensor) misc USE DIRECTED to test BLOOD SUGAR; change EVERY 14 days 0 06/15/2023 Active Continuous Glucose Sensor (FreeStyle Anamaria 2 Sensor) misc (20 sources) Start: 03-25-2024 End: 09-13-2024 Continuous Glucose Sensor (FreeStyle Anamaria 2 Sensor) misc Indications: Type 2 diabetes mellitus without complication, without long-term current use of insulin ([facility]) USE DIRECTED to test BLOOD SUGAR, change every 14 days 2 each 03/25/2024 09/13/2024 Discontinued Start: 03-25-2024 Continuous Glu cose Sensor (FreeStyle Anamaria 2 Sensor) misc Indications: Type 2 diabetes mellitus without complication, without long-term current use of insulin (CMS/HCC) USE DIRECTED to test BLOOD SUGAR, change every 14 days 2 each 03/25/2024 Active Start: 03-24-2024 End: 03-25-2024 Continuous Glucose Sensor (F reeStyle Anamaria 2 Sensor) [facility] Indications: Type 2 diabetes mellitus without complication, without long-term current use of insulin (CMS/HCC) Inject 1 each under the skin continuously for 28 days 1 each 03/24/2024 03/25/2024 Discontinued Start: 03-24-2024 End: 04-21-2024 Continuous Glucose Sensor (F reeStyle Anamaria 2 Sensor) [facility] Indications: Type 2 diabetes mellitus without complication, without long-term current use of insulin (CMS/HCC) Inject 1 each under the skin continuously for 28 days 1 each 03/24/2024 04/21/2024 Active FLUoxetine 20 mg oral capsule (2 [...] Toradol per 15 mg Jul, 60 mg loratadine 10 mg oral tablet (20 sources) Start: 09-07-2023 End: 01-29-2025 take 1 tablet by mouth once daily loratadine (Claritin) 10 MG tablet Indications: H/O seasonal allergies Take 1 tablet (10 mg) by mouth Daily 90 tablet 10/31/2024 12/14/2024 Discontinued (Therapy completed) Start: 07-09-2023 End: 08-27-2023 take 1 capsule by mouth in the morning Loratadine 10 MG capsule Indications: Non-seasonal allergic rhinitis, unspecified trigger Take 10 mg by mouth in the morning. 30 capsule 1 07/09/2023 08/27/2023 Discontinued (Therapy completed) meloxicam 15 mg oral tablet (20 sources) Nonsteroidal Anti-inflammatory Drug Start: 06-15-2023 End: 12-14-2024 take 1 tablet by mouth once daily as needed for pain meloxicam (Mobic) 15 MG tablet Indications: Lumbar spondylosis Take 1 tablet (15 mg) by mouth Daily as needed for moderate pain or mild pain 90 tablet 10/31/2024 12/14/2024 Discontinued (Therapy completed) naproxen 500 mg oral tablet (2 sources) Nonsteroidal Anti-inflammatory Drug End: 08-27-2023 naproxen (Naprosyn) 500 MG tablet every 12 (twelve) hours 0 08/27/2023 Discontinued (Therapy completed) Problems Active Problems Problem Classification Problem Date Documented Date Episodic/Chronic Acquired foot deformities (20 sources) Toe joint rigid; Translations: [Hallux rigidus, left foot] Onset: 04-27-2024 04-27-2024 Chronic Acquired foot deformities (4 sources) Toe joint rigid; Translations: [Hallux rigidus, right foot] 04-14-2024 Chronic Allergic reactions (2 sources) H/O: non-drug allergy; Translations: [Allergy status to unspecified drugs, medicaments and biological substances status] 09-07-2023 Episodic Anxiety disorders (2 sources) Anxiety disorder; Translations: [Other specified anxiety disorders] 05-11-2024 Chronic Diabetes mellitus with complications (20 sources) Polyneuropathy due to type 2 diabetes mellitus; Translations: [Type 2 diabetes mellitus with diabetic polyneuropathy] Onset: 04-27-2024 04-27-2024 Chronic Diabetes mellitus without complication (20 sources) Type 2 diabetes mellitus without complications; Translations: [Type 2 diabetes mellitus without complication] Onset: 10-08-2022 Chronic Disorders of lipid metabolism (20 sources) Hyperlipidemia, unspecified; Translations: [Hyperlipidemia] Onset: 10-16-2022 08-27-2023 Chronic Essential hypertension (20 sources) Essential hypertension; Translations: [Essential (primary) hypertension] Onset: 08-27-2023 08-27-2023 Chronic Mood disorders (20 sources) Moderate recurrent major depression; Translations: [Major depressive disorder, recurrent, moderate] 06-16-2024 Chronic Nutritional deficiencies (5 sources) Vitamin D deficiency; Translations: [Vitamin D deficiency, unspecified] Onset: 01-05-2025 01-05-2025 Chronic Open wounds of extremities (1 source) Laceration without foreign body, left lower leg, initial encounter Episodic Other diseases of veins and lymphatics (4 sources) Vascular insufficiency; Translations: [Venous insufficiency (chronic) (peripheral)] 04-14-2024 Episodic Other lower respiratory disease (20 sources) Dyspnea on exertion; Translations: [Other forms of dyspnea] Onset: 08-27-2023 Resolved: 01-11-2025 08-27-2023 Episodic Other nutritional; endocrine; and metabolic disorders (20 sources) Severe obesity; Translations: [Morbid (severe) obesity due to excess calories] Onset: 07-09-2023 07-09-2023 Chronic Other nutritional; endocrine; and metabolic disorders (7 sources) Hypercalcemia; Translations: [Hypercalcemia] Onset: 12-28-2024 12-28-2024 Chronic Other upper respiratory disease (20 sources) Allergic rhinitis; Translations: [Other allergic rhinitis] Onset: 07-09-2023 07-09-2023 Chronic Residual codes; unclassified (20 sources) Obstructive sleep apnea syndrome; Translations: [Obstructive sleep apnea (adult) (pediatric)] Onset: 08-27-2023 08-27-2023 Chronic Residual codes; unclassified (13 sources) Bilateral lower limb edema; Translations: [Localized edema] Onset: 12-14-2024 12-14-2024 Episodic Spondylosis; intervertebral disc disorders; other back problems (20 sources) Lumbar spondylosis; Translations: [Spondylosis without myelopathy [...] Onset: 07-12-2021 Resolved: 07-12-2021 Episodic Mood disorders (20 sources) Mood disorders Onset: 08-27-2023 08-27-2023 Mycoses (20 sources) Onychomycosis; Translations: [Tinea unguium] Onset: 04-27-2024 04-27-2024 Episodic Other connective tissue disease (2 sources) Pain of toes of bilateral feet; Translations: [Pain in right toe(s)] 04-14-2024 Episodic Other non-traumatic joint disorders (20 sources) Pain in right knee; Translations: [Pain in joint, lower leg] Onset: 06-22-2023 06-22-2023 Episodic Other non-traumatic joint disorders (6 sources) Pain in right hip joint; Translations: [Pain in right hip] Onset: 04-20-2019 08-27-2023 Episodic Other non-traumatic joint disorders (20 sources) Hip pain; Translations: [Pain in right hip] Onset: 04-20-2019 08-27-2023 Episodic Other screening for suspected conditions (not mental disorders or infectious disease) (20 sources) Encounter for screening for malignant neoplasm of colon; Translations: [Patient encounter status] Onset: 03-24-2024 03-24-2024 Episodic Other upper respiratory infections (20 sources) Acute upper respiratory infection, unspecified; Translations: [Acute sinusitis] Onset: 07-12-2021 Resolved: 07-12-2021 Episodic Results Test Name Value Interpretation Reference Range Facility CA ECHO DOPPLER COMPLETEon 0 01-04-2025 [place] [address] Cardiology Report Signed Patient: RIGO BOLAÑOS MR#: [id number] : 1955 Acct:[id number] Age/Sex: 69 / M ADM Date: 01/04/25 Loc: CARD Attending Dr: Onelia Simon NP Ordering Physician: Onelia Simon NP Date of Service: 01/04/25 Procedure(s): CA echo doppler complete Accession Number(s): [id number] cc: Onelia Simon NP Patient Name: RIGO BOLAÑOS MR#: [id number] : 1955 Exam Date: 01/04/2025 Ordering Doctor: BASIM SIMON CNP ECHOCARDIOGRAM REPORT PROCEDURE: CA ECHO DOPPLER COMPLETE INDICATIONS: JEFF, HTN, IQBAL, BLEE COMPARISON: None. DESCRIPTION: COMPLETE ECHOCARDIOGRAM Real-time transthoracic echocardiography with 2D, M-mode, spectral and color flow Doppler performed. QUALITY: Technical quality was limited because of body habitus. Suboptimal image quality. Contrast imaging is recommended if clinically warranted. LEFT VENTRICLE: Normal chamber size. Moderate concentric left ventricular hypertrophy. Global left ventricular systolic function is normal. LV EF: Visual estimation of left ventricular ejection fraction is 55%. DIASTOLIC: ATRIAL SEPTUM: LEFT ATRIUM: Mild dilatation. RIGHT ATRIUM: Mild dilatation. RIGHT VENTRICLE: Normal chamber size. Normal right ventricular systolic function. TRICUSPID VALVE: Normal mobility and thickness. No regurgitation. Unable to assess right-sided pressures due to lack of measurable tricuspid regurgitation. MITRAL VALVE: Normal mobility and thickness. There is no mitral annular calcification. No mitral regurgitation. AORTIC VALVE: Normal trileaflet appearance. No visible sclerosis. Normal leaflet mobility. No evidence of aortic valve stenosis. No aortic regurgitation. AORTIC ROOT: Normal diameter and appearance, measuring 3.8 cm. Normal size ascending aorta measuring 3.3 cm. PULMONIC VALVE: Not well visualized. PERICARDIUM: No evidence of pericardial effusion. IVC: Collapses with inspiration. Normal size. PLEURA: CONCLUSION: 1. Moderate concentric left ventricular hypertrophy with normal systolic function. LVEF is estimated at 55%. Segmental wall motion cannot be assessed accurately due to poor sound transmission. 2. Normal right ventricular size and systolic function. 3. Mild biatrial dilatation. 4. No significant valvular dysfunction. 5. Unable to assess right-sided pressures due to lack of measurable tricuspid regurgitation. Adult Echocardiography Procedure Report Left Ventricle LVEDD (3.7 - 5.6 cm): 4.42 cm LVESD (2.2 - 4.0 cm): 2.90 cm LVIVS thickness (0.6 - 1.2 cm): 1.37 cm LVPW thickness (0.5 - 1.0 cm): 1.40 cm LVOT Max Gradient: 2.75 mm[Hg] LVOT Area (cm2): 0.83 m/s Peak Velocity (LVOT): 0.83 m/s LVOT Diameter 2.40 cm Left Atrium Left Atrium Systolic Dimension: 3.47 cm Mitral Valve MV E to A Ratio: 0.88 Mitral Valve A-Wave Peak Velocity: 0.83 m/s Mitral Valve E-Wave Peak Velocity: 0.73 m/s Right Ventricle RV Internal Diastolic Dimension: 4.45 cm Aorta AO Root Diam: 3.81 cm Ascending Ao Diam: 3.28 cm Aortic Valve AoV Area (Peak Alex): 3.82 cm2, 3.82 cm2 Peak Velocity(Antegrade Flow): 0.98 m/s Peak Gradient(Antegrade Flow): 3.87 mm[Hg] Tricuspid Valve Pulmonic Valve Peak Velocity: 0.83 m/s Peak Gradient: 2.71 mm[Hg], 2.80 mm[Hg] Right Atrium Right Atrium Systolic Pressure: 57.37 ml, 57.37 ml Dictated by: Candice Fowler M.D. on 01/04/2025 at 17:53 Approved by: Candice Fowler M.D. on 01/04/2025 at 18:00 Dictated By: CANDICE FOWLER Signed By: 01/04/25 1802 (more content not included)... [facility] Radiology, Radiologist, MD - 01/04/2025 [place] [address] Cardiology Report Signed Patient: RIGO BOLAÑOS MR#: [id number] : 1955 Acct:[id number] Age/Sex: 69 / M ADM Date: 01/04/25 Loc: CARD Attending Dr: Onelia Simon NP Ordering Physician: Onelia Simon NP Date of Service: 01/04/25 Procedure(s): CA echo doppler complete Accession Number(s): [id number] cc: Onelia Simon NP Patient Name: RIGO BOLAÑOS MR#: [id number] : 1955 Exam Date: 01/04/2025 Ordering Doctor: BASIM SIMON CNP ECHOCARDIOGRAM REPORT PROCEDURE: CA ECHO DOPPLER COMPLETE INDICATIONS: JEFF, HTN, IQBAL, BLEE COMPARISON: None. DESCRIPTION: COMPLETE ECHOCARDIOGRAM Real-time transthoracic echocardiography with 2D, M-mode, spectral and color flow Doppler performed. QUALITY: Technical quality was limited because of body habitus. Suboptimal image quality. Contrast imaging is recommended if clinically warranted. LEFT VENTRICLE: Normal chamber size. Moderate concentric left ventricular hypertrophy. Global left ventricular systolic function is normal. LV EF: Visual estimation of left ventricular ejection fraction is 55%. DIASTOLIC: ATRIAL SEPTUM: LEFT ATRIUM: Mild dilatation. RIGHT ATRIUM: Mild dilatation. RIGHT VENTRICLE: Normal chamber size. Normal right ventricular systolic function. TRICUSPID VALVE: Normal mobility and thickness. No regurgitation. Unable to assess right-sided pressures due to lack of measurable tricuspid regurgitation. MITRAL VALVE: Normal mobility and thickness. There is no mitral annular calcification. No mitral regurgitation. AORTIC VALVE: Normal trileaflet appearance. No visible sclerosis. Normal leaflet mobility. No evidence of aortic valve stenosis. No aortic regurgitation. AORTIC ROOT: Normal diameter and appearance, measuring 3.8 cm. Normal size ascending aorta measuring 3.3 cm. PULMONIC VALVE: Not well visualized. PERICARDIUM: No evidence of pericardial effusion. IVC: Collapses with inspiration. Normal size. PLEURA: CONCLUSION: 1. Moderate concentric left ventricular hypertrophy with normal systolic function. LVEF is estimated at 55%. Segmental wall motion cannot be assessed accurately due to poor sound transmission. 2. Normal right ventricular size and systolic function. 3. Mild biatrial dilatation. 4. No significant valvular dysfunction. 5. Unable to assess right-sided pressures due to lack of measurable tricuspid regurgitation. Adult Echocardiography Procedure Report Left Ventricle LVEDD (3.7 - 5.6 cm): 4.42 cm LVESD (2.2 - 4.0 cm): 2.90 cm LVIVS thickness (0.6 - 1.2 cm): 1.37 cm LVPW thickness (0.5 - 1.0 cm): 1.40 cm LVOT Max Gradient: 2.75 mm[Hg] LVOT Area (cm2): 0.83 m/s Peak Velocity (LVOT): 0.83 m/s LVOT Diameter 2.40 cm Left Atrium Left Atrium Systolic Dimension: 3.47 cm Mitral Valve MV E to A Ratio: 0.88 Mitral Valve A-Wave Peak Velocity: 0.83 m/s Mitral Valve E-Wave Peak Velocity: 0.73 m/s Right Ventricle RV Internal Diastolic Dimension: 4.45 cm Aorta AO Root Diam: 3.81 cm Ascending Ao Diam: 3.28 cm Aortic Valve AoV Area (Peak Alex): 3.82 cm2, 3.82 cm2 Peak Velocity(Antegrade Flow): 0.98 m/s Peak Gradient(Antegrade Flow): 3.87 mm[Hg] Tricuspid Valve Pulmonic Valve Peak Velocity: 0.83 m/s Peak Gradient: 2.71 mm[Hg], 2.80 mm[Hg] Right Atrium Right Atrium Systolic Pressure: 57.37 ml, 57.37 ml Dictated by: Candice Fowler M.D. on 01/04/2025 at 17:53 Approved by: Candice Fowler M.D. on 01/04/2025 at 18:00 Dictated By: CANDICE FOWLER Signed By: 01/04/251801 DD/ 1800 TD/TT: [employer]ver: [facility] Radiology Study observation (narrative) [facility] CA ECHO DOPPLER COMPLETEOrde red By: Radiologist Radiology on 01-04-2025 [facility] [employer] Work Phone: [facility] VITAMIN D 25 OHon 2024 VITAMIN D 27.9 ng/mL [facility] [employer] Comment on above: <20 ng/mL Vit D defi cient 20-<30 ng/mL Vit D insufficient 30-100 ng/mL Vit D sufficient >100 ng/mL Potential Toxicity [facility] ALL BASIC METABOLIC PANELon 12-27-2024 Anion gap [Moles/Vol] 15.6 mmol/L NO [facility] Calcium [Mass/Vol] 10.2 mg/dL High 8.5 - 10. 1 mg/dL [facility] Chloride [Moles/Vol] 98 mmol/L 98 - 10 7 mmol/L [facility] CO2 [Moles/Vol] 29.9 mmol/L 21.0 - 32.0 mmol/L [facility] Creatinine [Mass/Vol] 0.85 mg/dL 0.70 - 1.30 mg/dL [facility] GFR/1.73 sq M.predicted CKD-EPI (S/P/Bld) [Vol rate/Area] >60 >=60 mL/min/1.73m 2 [facility] Glucose [Mass/Vol] 177 mg/dL High 74 - 106 mg/dL [facility] Interpretation and review of laboratory results Abnormal [facility] Potassium [Moles/Vol] 4.5 mmol/L 3.5 - 5.1 mmol/L [facility] Sodium [Moles/Vol] 139 mmol/L 136 - 145 mmol/L [facility] TB EGFR-NON AF MACEDONIAN >60 >=60 mL/min/1.73m 2 [facility] Urea nitrogen [Mass/Vol] 16 mg/dL 7.0 - 18.0 mg/dL [facility] Urea nitrogen/Creatinine [Mass ratio] 18.8 mg/mg [facility] HbA1c (Bld) [Mass fraction]o n 12-14-2024 Interpretation and review of laboratory results Abnormal [facility] - Hematology and Cell countson 12-14-2024 HbA1c (Bld) [Mass fraction] 7 % [facility] Capillary blood glucose gisele urement by glucometer (mass/volume)Ordered By: Van Trinh on 04-28-2024 Glucose [Mass/Vol] 190 mg/dL Normal [facility] Comment on above: Random Glucose Refer ence Range is dependent on time and content of last meal. Glucose of more than 200 mg/dL in a nonstressed, ambulatory subject supports the diagnosis of Diabetes Mellitus. Result Comment: [place] Glucose Reference Range is dependent on time and content of last meal. Glucose of more than 200 mg/dL in a nonstressed, ambulatory subject supports the diagnosis of Diabetes Mellitus. Performed By: #### G LULS #### Point of Care testing , Glucose Poct Glucometerson 1 Commemt1 Glu2: Cleaned Meter Normal [facility] Comment on above: Result Comment: PERF ORMED BY: [place] [address] PATHOLOGIST DIRECTOR [employer] SHASTA ALEXANDER M.D. Performed By: #### G LULS #### Point of Care testing , No Panel InformationOrdered By: Van Trinh on 04-28-2024 Bedside Glucose Comment Glu2: cleaned meter [facility] Pathology Request for Lab Co rpon 04-28-2024 Pathology Request for Lab Carlos Normal [facility] Comment on above: Order Comment: PATHO LOGY GI SPECIMEN Result Comment: See report. Scanned copy available in EMR. PERFORMED BY: [place] [address] PATHOLOGIST DIRECTOR [employer] SHASTA ALEXANDER M.D. Performed By: #### P ATH TO [facility] #### [address] CBC AUTO DIFFon 10-08-2022 BASO # 0.1 103/ul Normal 0.0-0.1 [facility] Comment on above: Performed By: #### C BC #### [facility] [address] [place] [address] Dr. Brandon Gilmore Basophils/100 WBC (Bld) 0.8 % Normal 0.2-2.0 [facility] Comment on above: Performed By: #### C BC #### [facility] [address] [place] [address] Dr. Brandon Gilmore EO # 0.1 103/ul Normal 0.0-0.7 [facility] Comment on above: Performed By: #### C BC #### [facility] [address] [place] [address] Dr. Brandon Gilmore Eosinophils/100 WBC (Bld) 1.7 % Normal 0.9-7.0 [facility] Comment on above: Performed By: #### C BC #### [facility] [address] [place] [address] Dr. Brandon Gilmore Erythrocyte distribution width (RBC) [Ratio] 14.0 % Normal 11.0-15.0 [facility] Comment on above: Performed By: #### C BC #### [facility] [address] [place] [address] Dr. Brandon Gilmore Hematocrit (Bld) [Volume fraction] 42.7 % Normal 42.0-54.0 [facility] Comment on above: Performed By: #### C BC #### [facility] [address] [place] [address] Dr. Brandon Gilmore Hemoglobin (Bld) [Mass/Vol] 14.9 g/dL Normal 14.0-18.0 [facility] Comment on above: Performed By: #### C BC #### [facility] [address] [place] [address] Dr. Brandon Gilmore IG # 0.02 10e3/ul Normal 0.00-0.03 [facility] Comment on above: Performed By: #### C BC #### [facility] [address] [place] [address] Dr. Brandon Gilmore IG % 0.3 % Normal 0.0-0.5 [facility] Comment on above: Performed By: #### C BC #### [facility] [address] [place] [address] Dr. Brandon Gilmore LYMPH # 1.9 103/ul Normal 1.2-3.8 [facility] Comment on above: Performed By: #### C BC #### [facility] [address] [place] [address] Dr. Brandon Gilmore Lymphocytes/100 WBC (Bld) 25.0 % Normal 20.5-60.0 [facility] Comment on above: Performed By: #### C BC #### [facility] [address] [place] [address] Dr. Brandon Gilmore MANUAL DIFF REQ NO Normal [facility] Comment on above: Performed By: #### C BC #### [facility] [address] [place] [address] Dr. Brandon Gilmore MCH (RBC) [Entitic mass] 29.1 pg Normal 25.9-34.0 [facility] Comment on above: Performed By: #### C BC #### [facility] [address] [place] [address] Dr. Brandon Gilmore MCHC (RBC) [Mass/Vol] 34.9 g/dL Normal 29.9-35.2 [facility] Comment on above: Performed By: #### C BC #### [facility] [address] [place] [address] Dr. Brandon Gilmore MCV (RBC) [Entitic vol] 83.4 fL Normal 80.0-94.0 [facility] Comment on above: Performed By: #### C BC #### [facility] [address] [place] [address] Dr. Brandon Gilmore MONO # 0.5 103/ul Normal 0.3-0.8 [facility] Comment on above: Performed By: #### C BC #### [facility] [address] [place] [address] Dr. Brandon Gilmore Monocytes/100 WBC (Bld) 6.1 % Normal 1.7-12.0 [facility] Comment on above: Performed By: #### C BC #### [facility] [address] [place] [address] Dr. Brandon Gilmore NEUT # 5.1 103/ul Normal 1.4-6.5 [facility] Comment on above: Performed By: #### C BC #### [facility] [address] [place] [address] Dr. Brandon Gilmore Neutrophils/100 WBC (Bld) 66.1 % Normal 43.0-75.0 [facility] Comment on above: Performed By: #### C BC #### [facility] [address] [place] [address] Dr. Brandon Gilmore Platelet mean volume (Bld) [Entitic vol] 9.7 fL Normal 9.5-13.5 [facility] Comment on above: Performed By: #### C BC #### [facility] [address] [place] [address] Dr. Brandon Gilmore PLT 195 103/ul Normal 150-450 [facility] Comment on above: Performed By: #### C BC #### [facility] [address] [place] [address] Dr. Brandon Gilmore RBC 5.12 106/ul Normal 4.70-6.10 [facility] Comment on above: Performed By: #### C BC #### [facility] [address] [place] [address] Dr. Brandon Gilmore WBC 7.7 103/ul Normal 4.0-11.0 [facility] Comment on above: Performed By: #### C BC #### [facility] [address] [place] [address] Dr. Brandon Gilmore GLYCOHEMOGLOBIN A1Con 2022 ADA RECOMMENDATION SEE BELOW Normal [facility] Comment on above: Result Comment: ADA RECOMMENDED LIMIT 4.0 - 6.0 ADA THERAPEUTIC TARGET < 7.0 ACTION SUGGESTED > 7.0 Performed By: #### A 1C #### [facility] [address] [place] [address] Dr. Brandon Gilmore Glucose [Mass/Vol] 137 mg/dL Normal [facility] Comment on above: Performed By: #### A 1C #### [facility] [address] [address] [address] Brandon Gilmore HbA1c (Bld) [Mass fraction] 6.4 % Critically high 4.5-6.2 [facility] Comment on above: Performed By: #### A 1C #### [facility] [address] [address] [address] Brandon Gilmore LIPID PROFILEon 10-08-2022 CHOL-HDL RATIO NORM SEE BELOW Normal [facility] Comment on above: Result Comment: 3.3 - 4.4 LOW RISK 4.4 - 7.1 AVERAGE RISK 7.1 - 11.0 MODERATE RISK >11.0 HIGH RISK Performed By: #### L IPID, CMP #### [facility] [address] [address] [address] Brandon Gilmore Cholesterol [Mass/Vol] 196 mg/dL Normal <=200 [facility] Comment on above: Performed By: #### L IPID, CMP #### [facility] [address] [address] [address] Brandon Gilmore Cholesterol in HDL [Mass/Vol] 48 mg/dL Normal 40-60 [facility] Comment on above: Performed By: #### L IPID, CMP #### [facility] [address] [address] [address] Brandon Gilmore Cholesterol in LDL [Mass/Vol] 101.8 mg/dL Normal [facility] Comment on above: Performed By: #### L IPID, CMP #### [facility] [address] [address] [address] Brandon Gilmore Cholesterol.total/Chol esterol in HDL [Mass ratio] 4.1 {ratio} Normal [facility] Comment on above: Performed By: #### L IPID, CMP #### [facility] [address] [address] [address] Brandon Gilmore HDL NORMAL > or = 60 mg/dl - LOW CARDIOVASCULAR RISK <40 mg/dl - HIGH CARDIOVASCULAR RISK Normal [facility] Comment on above: Performed By: #### L IPID, CMP #### [facility] [address] [address] [address] Brandon Gilmore LDL CALC NORMAL SEE BELOW Normal [facility] Comment on above: Result Comment: <100 mg/dl OPTIMAL 100 - 129 mg/dl NEAR OR ABOVE OPTIMAL 130 - 159 mg/dl BORDERLINE HIGH 160 - 189 mg/dl HIGH >190 mg/dl VERY HIGH Performed By: #### L IPID, CMP #### [facility] [address] [address] [address] Brandon Gilmore Triglyceride [Mass/Vol] 231 mg/dL Critically high <=150 [facility] Comment on above: Performed By: #### L IPID, CMP #### [facility] [address] [address] [address] Brandon Gilmore VLDL CALC 46.2 mg/dL Normal [facility] Comment on above: Performed By: #### L IPID, CMP #### [facility] [address] [address] [address] Brandon Gilmore MICROALB CREAT RATIO RANDOMo n 10-08-2022 mALB 1.7 mg/L Normal <=30.0 [facility] Comment on above: Performed By: #### M CRR #### [facility] [address] [place] [address] Dr. Brandon Gilmore MALB CR RATIO 20.6 mg/g Normal 0.0-29.9 [facility] Comment on above: Performed By: #### M CRR #### [facility] [address] [address] [address] Brandon Gilmore MALB CR RATIO RANGE SEE BELOW Normal [facility] Comment on above: Result Comment: NO M ICROALBUMINURIA 0-29 MG/G CLINICAL MICROALBUMINURIA 30-300 MG/G MACROALBUMINURIA >300 MG/G Performed By: #### M CRR #### [facility] [address] [place] [address] Dr. Brandon Gilmore URINE CREAT 82.51 mg/dL Normal 20.00-300.00 [facility] Comment on above: Performed By: #### M CRR #### [facility] [address] [address] [address] Brandon Gilmore PROF 14(COMP METB)on 023 Albumin [Mass/Vol] 4.0 g/dL Normal 3.4-5.0 [facility] Comment on above: Performed By: #### L IPID, CMP #### [facility] [address] [address] [address] Brandon Gilmore Albumin/Globulin [Mass ratio] 1.2 {ratio} Normal [facility] Comment on above: Performed By: #### L IPID, CMP #### [facility] [address] [address] [address] Brandon Gilmore ALP [Catalytic activity/Vol] 90 U/L Normal 46-116 [facility] Comment on above: Performed By: #### L IPID, CMP #### [facility] [address] [address] [address] Brandon Gilmore ALT [Catalytic activity/Vol] 25 U/L Normal 16-63 [facility] Comment on above: Performed By: #### L IPID, CMP #### [facility] [address] [address] [address] Brandon Gilmore Anion gap [Moles/Vol] 10.9 mmol/L Normal [facility] Comment on above: Performed By: #### L IPID, CMP #### [facility] [address] [address] [address] Brandon Gilmore AST [Catalytic activity/Vol] 17 U/L Normal 15-37 [facility] Comment on above: Performed By: #### L IPID, CMP #### [facility] [address] [address] [address] Brandon Gilmore Bilirubin [Mass/Vol] 0.4 mg/dL Normal 0.2-1.0 [facility] Comment on above: Performed By: #### L IPID, CMP #### [facility] [address] [address] [address] Brandon Gilmore Calcium [Mass/Vol] 10.1 mg/dL Normal 8.5-10.1 [facility] Comment on above: Performed By: #### L IPID, CMP #### [facility] [address] [address] [address] Brandon Gilmore Chloride [Moles/Vol] 106 mmol/L Normal 98-107 [facility] Comment on above: Performed By: #### L IPID, CMP #### [facility] [address] [address] [address] Brandon Gilmore CO2 [Moles/Vol] 29.4 mmol/L Normal 21.0-32.0 [facility] Comment on above: Performed By: #### L IPID, CMP #### [facility] [address] [address] [address] Brandon Gilmore Creatinine [Mass/Vol] 0.78 mg/dL Normal 0.70-1.30 [facility] Comment on above: Performed By: #### L IPID, CMP #### [facility] [address] [place] [address] Dr. Brandon Gilmore EGFR-AF MACEDONIAN >60 Normal >=60 [facility] Comment on above: Performed By: #### L IPID, CMP #### [facility] [address] [address] [address] Brandon Gilmore EGFR-NON AF MACEDONIAN >60 Normal >=60 [facility] Comment on above: Performed By: #### L IPID, CMP #### [facility] [address] [address] [address] Brandon Gilmore Globulin (S) [Mass/Vol] 3.3 g/dL Normal [facility] Comment on above: Performed By: #### L IPID, CMP #### [facility] [address] [address] [address] Brandon Gilmore Glucose [Mass/Vol] 213 mg/dL Critically high 74-106 [facility] Comment on above: Performed By: #### L IPID, CMP #### [facility] [address] [address] [address] Brandon Gilmore Potassium [Moles/Vol] 4.3 mmol/L Normal 3.5-5.1 [facility] Comment on above: Performed By: #### L IPID, CMP #### [facility] [address] [address] [address] Brandon Gilmore Protein [Mass/Vol] 7.3 g/dL Normal 6.4-8.2 [facility] Comment on above: Performed By: #### L IPID, CMP #### [facility] [address] [address] [address] Brandon Gilmore Sodium [Moles/Vol] 142 mmol/L Normal 136-145 [facility] Comment on above: Performed By: #### L IPID, CMP #### [facility] [address] [address] [address] Brandon Gilmore Urea nitrogen [Mass/Vol] 14.0 mg/dL Normal 7.0-18.0 [facility] Comment on above: Performed By: #### L IPID, CMP #### [facility] [address] [address] [address] Brandon Gilmore Urea nitrogen/Creatinine [Mass ratio] 17.9 mg/mg Normal [facility] Comment on above: Performed By: #### L IPID, CMP #### [facility] [address] [address] [address] Brandon Gilmore Quick Fluon 07-12-2021 FLUAV Ab CF (S) [Titer] Negative [facility] Other FLUBV Ab CF (S) [Titer] Negative [facility] Other Vital Signs Date Time Vital Sign Value Performing Clinician Facility 01-11-2025 14:49-0400 Body mass index (BMI) [Ratio] 51.62 kg/m2 Onelia Simon [employer] Work Phone: [facility] 01-11-2025 14:49-0400 Body temperature 97.81 [degF] Onelia Simon [employer] Work Phone: [facility] 01-11-2025 14:49-0400 Body weight 145.06 kg Onelia Simon [employer] Work Phone: [facility] 01-11-2025 14:49-0400 Diastolic blood pressure 82 mm[Hg] Onelia Aichholz [employer] Work Phone: [facility] 01-11-2025 14:49-0400 Heart rate 95 /min Onelia Aichholz [employer] Work Phone: [facility] 01-11-2025 14:49-0400 Respiratory rate 20 /min Onelia Aichholz [employer] Work Phone: [facility] 01-11-2025 14:49-0400 SaO2% (BldA) [Mass fraction] 92 % Onelia Aichholz [employer] Work Phone: [facility] 01-11-2025 14:49-0400 Systolic blood pressure 134 mm[Hg] Onelia Aichholz [employer] Work Phone: [facility] 12-14-2024 13:29-0400 Body mass index (BMI) [Ratio] 52 kg/m2 Onelia Aichholz [employer] Work Phone: [facility] 12-14-2024 13:29-0400 Body temperature 97.81 [degF] Onelia Aichholz [employer] Work Phone: [facility] 12-14-2024 13:29-0400 Body weight 146.15 kg Onelia Aichholz [employer] Work Phone: [facility] 12-14-2024 13:29-0400 Diastolic blood pressure 80 mm[Hg] Onelia Aichholz [employer] Work Phone: [facility] 12-14-2024 13:29-0400 Heart rate 91 /min Onelia Aichholz [employer] Work Phone: [facility] 12-14-2024 13:29-0400 Respiratory rate 24 /min Onelia Aichholz [employer] Work Phone: [facility] 12-14-2024 13:29-0400 SaO2% (BldA) [Mass fraction] 93 % Onelia Aichholz [employer] Work Phone: [facility] 12-14-2024 13:29-0400 Systolic blood pressure 150 mm[Hg] Onelia Simon [employer] Work Phone: [facility] 09-13-2024 15:36-0500 Body height 167.6 cm Cathleen Malik [employer] Work Phone: [facility] 09-13-2024 15:36-0500 Body mass index (BMI) [Ratio] 51.33 kg/m2 Cathleen Malik [employer] Work Phone: [facility] 09-13-2024 15:36-0500 Body temperature 97.81 [degF] Cathleen Malik [employer] Work Phone: [facility] 09-13-2024 15:36-0500 Body weight 144.24 kg Cathleen Malik [employer] Work Phone: [facility] 09-13-2024 15:36-0500 Diastolic blood pressure 74 mm[Hg] Cathleen Malik [employer] Work Phone: [facility] 09-13-2024 15:36-0500 Heart rate 102 /min Cathleen Malik [employer] Work Phone: [facility] 09-13-2024 15:36-0500 Respiratory rate 16 /min Cathleen Malik [employer] Work Phone: [facility] 09-13-2024 15:36-0500 SaO2% (BldA) [Mass fraction] 93 % Cathleen Malik [employer] Work Phone: [facility] 09-13-2024 15:36-0500 Systolic blood pressure 130 mm[Hg] Cathleen Malik [employer] Work Phone: [facility] 08-18-2024 13:41-0500 Body height 167.6 cm Emmanuel Wyatt DPM Work Phone: [facility] 08-18-2024 13:41-0500 Body mass index (BMI) [Ratio] 52.29 kg/m2 Emmanuel Wyatt DPM Work Phone: [facility] 08-18-2024 13:41-0500 Body weight 146.97 kg Emmanuel Wyatt DPM Work Phone: [facility] 08-18-2024 13:41-0500 Respiratory rate 18 /min Emmanuel Wyatt DPM Work Phone: [facility] 06-16-2024 14:36-0500 Body height 167.6 cm Cathleen Malik [employer]INGE WEAVER Work Phone: [facility] 06-16-2024 14:36-0500 Body mass index (BMI) [Ratio] 52.33 kg/m2 Cathleen Malik [employer]E WEAVER Work Phone: [facility] 06-16-2024 14:36-0500 Body temperature 96.49 [degF] Cathleen Malik [employer]INGE WEAVER Work Phone: [facility] 06-16-2024 14:36-0500 Body weight 147.06 kg Cathleen Malik [employer]E WE[employer]ER Work Phone: [facility] 06-16-2024 14:36-0500 Diastolic blood pressure 82 mm[Hg] Cathleen Malik [employer]INGE WEAVER Work Phone: [facility] 06-16-2024 14:36-0500 Heart rate 91 /min Cathleen Malik [employer]E WEAVER Work Phone: [facility] 06-16-2024 14:36-0500 Respiratory rate 18 /min Cathleen Malik [employer]INGE WEAVER Work Phone: [facility] 06-16-2024 14:36-0500 SaO2% (BldA) [Mass fraction] 93 % Cathleen Malik [employer]INGE WEAVER Work Phone: [facility] 06-16-2024 14:36-0500 Systolic blood pressure 126 mm[Hg] Cathleen Malik FRINGE WEAVER Work Phone: [facility] 04-28-2024 11:05-0400 Diastolic blood pressure 93 mm[Hg] [facility] 04-28-2024 11:05-0400 Heart rate 93 /min [facility] 04-28-2024 11:05-0400 Respiratory rate 20 /min [facility] 04-28-2024 11:05-0400 SaO2% (BldA) [Mass fraction] 95 % [facility] 04-28-2024 11:05-0400 Systolic blood pressure 155 mm[Hg] [facility] 04-28-2024 09:02-0400 Body height 170.18 cm [facility] 04-28-2024 09:02-0400 Body weight 145.14 kg [facility] 04-14-2024 15:42-0400 Body height 167.6 cm Emmanuel Wyatt DPM Work Phone: [facility] 04-14-2024 15:42-0400 Body mass index (BMI) [Ratio] 51.65 kg/m2 Emmanuel Wyatt DPM Work Phone: [facility] 04-14-2024 15:42-0400 Body weight 145.15 kg Emmanuel Wyatt DPM Work Phone: [facility] 04-14-2024 15:42-0400 Diastolic blood pressure 80 mm[Hg] Emmanuel Wyatt DPM Work Phone: [facility] 04-14-2024 15:42-0400 Heart rate 74 /min Emmanuel Wyatt DPM Work Phone: [facility] 04-14-2024 15:42-0400 Respiratory rate 18 /min mEmanuel Wyatt DPM Work Phone: [facility] 04-14-2024 15:42-0400 Systolic blood pressure 122 mm[Hg] Emmanuel Wyatt DPM Work Phone: [facility] 03-24-2024 14:46-0400 Body height 167.6 cm Cathleen Malik NP Work Phone: [facility] 03-24-2024 14:46-0400 Body mass index (BMI) [Ratio] 51.65 kg/m2 Cathleen Malik [employer]INGE WEAVER Work Phone: [facility] 03-24-2024 14:46-0400 Body temperature 99.3 [degF] Cathleen Malik [employer]E WE[employer]ER Work Phone: [facility] 03-24-2024 14:46-0400 Body weight 145.15 kg Cathleen Malik [employer]INGE WEAVER Work Phone: [facility] 03-24-2024 14:46-0400 Diastolic blood pressure 80 mm[Hg] Cathleen Malik FRINGE WEAVER Work Phone: [facility] 03-24-2024 14:46-0400 Heart rate 97 /min Cathleen Malik [employer]E WEAVER Work Phone: [facility] Comment on above: 95% O2 03-24-2024 14:46-0400 Systolic blood pressure 120 mm[Hg] Cathleen Malik [employer]E WE[employer]ER Work Phone: [facility] 08-27-2023 15:27-0500 Body height 167.6 cm Shaikh Leanna WYNNE Work Phone: [facility] 08-27-2023 15:27-0500 Body mass index (BMI) [Ratio] 52.62 kg/m2 Shaikh Leanna WYNNE Work Phone: [facility] 08-27-2023 15:27-0500 Body temperature 96.8 [degF] Shaikh Leanna WYNNE Work Phone: [facility] 08-27-2023 15:27-0500 Body weight 147.87 kg Shaikh Leanna WYNNE Work Phone: [facility] 08-27-2023 15:27-0500 Diastolic blood pressure 90 mm[Hg] Shaikh Leanna WYNNE Work Phone: [facility] 08-27-2023 15:27-0500 Heart rate 98 /min Shaikh Leanna WYNNE Work Phone: [facility] 08-27-2023 15:27-0500 SaO2% (BldA) [Mass fraction] 95 % Shaikh Leanna WYNNE Work Phone: [facility] 08-27-2023 15:27-0500 Systolic blood pressure 126 mm[Hg] Shaikh Leanna WYNNE Work Phone: [facility] 03-09-2023 18:05-0400 Body height 167.64 cm Ban Heaton Other [facility] Other 03-09-2023 18:05-0400 Body mass index (BMI) [Ratio] 52.45 kg/m2 Ban Heaton Other [facility] Other 03-09-2023 18:05-0400 Body temperature 97.5 [degF] Ban Heaton Other [facility] Other 03-09-2023 18:05-0400 Body weight 147.42 kg Ban Heaton Other [facility] Other 03-09-2023 18:05-0400 Diastolic blood pressure 83 mm[Hg] Ban Heaton Other [facility] Other 03-09-2023 18:05-0400 Respiratory rate 18 /min Ban Heaton Other [facility] Other 03-09-2023 18:05-0400 SaO2% (BldA) [Mass fraction] 97 % Ban Heaton Other [facility] Other 03-09-2023 18:05-0400 Systolic blood pressure 144 mm[Hg] Ban Heaton Other [facility] Other 07-12-2021 12:30-0500 Body height 167.64 cm Ema Mitchell Other [facility] Other 07-12-2021 12:30-0500 Body mass index (BMI) [Ratio] 51.64 kg/m2 Ema Barkermond Other [facility] Other 07-12-2021 12:30-0500 Body temperature 98.3 [degF] Ema Barkermond Other [facility] Other 07-12-2021 12:30-0500 Body weight 145.15 kg Ema Barkermond Other [facility] Other 07-12-2021 12:30-0500 SaO2% (BldA) [Mass fraction] 92 % Ema Mitchell Other [facility] Other Encounters Encounter Date Encounter Type Care Provider Facility Start: 01-11-2025 End: 01-11-2025 ambulatory ONELIA SIMON Not Available Start: 01-11-2025 End: 01-11-2025 Bamboo flowsheet Onelia Simon [employer]ER Work Phone: [facility] Start: 01-11-2025 End: 01-11-2025 Bamboo flowsheet Onelia Simon [employer]ER Work Phone: [facility] Start: 01-11-2025 End: 01-11-2025 Patient encounter procedure Onelia Simon [employer]ER Work Phone: [facility] Comment on above: Medicare annual well ness visit, subsequent (Primary Dx); JEFF (obstructive sleep apnea); Primary hypertension ; Class 3 severe obesity due to excess calories without serious comorbidity with body mass index (BMI) of 50.0 to 59.9 in adult ([facility]); Type 2 diabetes mellitus without complication, without long-term current use of insulin ([facility]); IQBAL (dyspnea on exertion); Dyspnea on exertion Start: 01-05-2025 End: 01-05-2025 Refill Onelia Radhaz [employer]E WE[employer]ER Work Phone: [facility] Comment on above: Vitamin D deficiency (Primary Dx); Hypercalcemia Start: 01-04-2025 End: 01-04-2025 Clinisync Result Encounter Onelia Aichholz [employer]ER Work Phone: [facility] Unsolicited Start: 01-04-2025 End: 01-04-2025 Clinisync Result Encounter Onelia Aichholz [employer]E WEAVER Work Phone: [facility] External Department Unsolicited Start: 12-27-2024 End: 12-27-2024 Clinisync Result Encounter Onelia Aichholz [employer]INGE WEAVER Work Phone: [facility] External Department Unsolicited Start: 12-27-2024 End: 12-27-2024 Clinisync Result Encounter Onelia Aichholz [employer]E WEAVER Work Phone: [facility] Unsolicited Start: 12-14-2024 End: 12-14-2024 Bamboo flowsheet Onelia Aichholz [employer]E WEAVER Work Phone: [facility] Start: 12-14-2024 End: 12-14-2024 Bamboo flowsheet Onelia Aichholz [employer]E [employer]ER Work Phone: [facility] Start: 12-14-2024 End: 12-14-2024 Office outpatient visit 25 minutes Onelia Aichholz [employer]E WE[employer]ER Work Phone: [facility] Comment on above: Dyspnea on exertion (Primary Dx); JEFF (obstructive sleep apnea); Primary hypertension ([facility]); Class 3 severe obesity due to excess calories without serious comorbidity with body mass index (BMI) of 50.0 to 59.9 in adult; Type 2 diabetes mellitus without complication, without long-term current use of insulin; 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); Moderate episode of recurrent major depressive disorder (CMS/HCC); Bilateral lower extremity edema Start: 12-14-2024 End: 12-14-2024 ambulatory ONELIA SIMON Not Available Start: 10-31-2024 End: 10-31-2024 Refill Bakari Bhat MD Work Phone: [facility] Comment on above: Lumbar spondylosis ( Primary Dx); Type 2 diabetes mellitus without complication, without long-term current use of insulin; Essential (primary) hypertension (CMS/HCC); Other specified anxiety disorders; 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); H/O seasonal allergies; Type 2 diabetes mellitus without complications; Hyperlipidemia, unspecified (CMS/HCC) Start: 09-13-2024 End: 09-13-2024 Office outpatient visit 15 minutes Cathleen Malik [employer]E WEAVER Work Phone: [facility] Comment on above: Moderate episode of recurrent major depressive disorder (CMS/HCC) (Primary Dx); Type 2 diabetes mellitus without complication, without long-term current use of insulin (CMS/HCC); Primary hypertension (CMS/HCC); Other hyperlipidemia (CMS/HCC); 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); Diabetes mellitus due to underlying condition with diabetic polyneuropathy (CMS/HCC) Start: 09-13-2024 End: 09-13-2024 ambulatory CATHLEEN MALIK Not Available Start: 09-13-2024 End: 09-13-2024 Bamboo flowsheet Cathleen Malik [employer]E WEAVER Work Phone: [facility] Start: 09-13-2024 End: 09-13-2024 Bamboo flowsheet Cathleen Malik [employer]INGE WEAVER Work Phone: [facility] Start: 08-18-2024 End: 08-18-2024 Bamboo flowsheet Emmanuel Wyatt DPM Work Phone: [facility] Start: 08-18-2024 End: 08-18-2024 Bamboo flowsheet Emmanuel Wyatt DPM Work Phone: [facility] Start: 08-18-2024 End: 08-18-2024 Patient encounter procedure Emmanuel Wyatt DPM Work Phone: [facility] Comment on above: Type 2 diabetes carine itus without complication, without long- term current use of insulin (CMS/HCC) (Primary Dx); Pain due to onychomycosis of toenails of both feet; Hallux rigidus of left foot; Hallux rigidus of right foot; Venous insufficiency Start: 08-18-2024 End: 08-18-2024 ambulatory EMMANUEL WYATT Not Available Start: 08-01-2024 End: 08-01-2024 Refill Bakari Bhat MD Work Phone: [facility] Comment on above: Type 2 diabetes carine itus without complication, without long- term current use of insulin (CMS/HCC) Start: 07-25-2024 End: 07-27-2024 Refill Cathleen Malik [employer] WE[employer]ER Work Phone: [facility] Comment on above: Hyperlipidemia, unsp ecified (CMS/HCC); Essential (primary) hypertension (CMS/HCC) Start: 07-21-2024 End: 07-21-2024 Telephone encounter Emmanuel Wyatt DPM Work Phone: [facility] Start: 07-06-2024 End: 07-06-2024 Bamboo flowsheet Ira Malicki VEHICLE REFINISHER [facility] Start: 07-06-2024 End: 07-06-2024 Bamboo flowsheet Ira Malicki VEHICLE REFINISHER [facility] Start: 07-06-2024 End: 07-06-2024 ambulatory IRA MALICKI Not Available Start: 06-16-2024 End: 06-16-2024 Office outpatient visit 15 minutes Cathleen Malik [employer]ER Work Phone: [facility] Comment on above: Type 2 diabetes carine itus with polyneuropathy (CMS/HCC) (Primary Dx); Primary hypertension (CMS/HCC); Type 2 diabetes mellitus without complication, without long-term current use of insulin ([facility]); Moderate episode of recurrent major depressive disorder ([facility]); Class 3 severe obesity due to excess calories without serious comorbidity with body mass index (BMI) of 50.0 to 59.9 in adult ([facility]/HCC) Start: 06-16-2024 End: 06-16-2024 ambulatory CATHLEEN MALIK Not Available Start: 06-16-2024 End: 06-16-2024 Bamboo flowsheet Cathleen Malik [employer]E WE[employer]ER Work Phone: [facility] Start: 06-16-2024 End: 06-16-2024 Bamboo flowsheet Cathleen Malik [employer]ER Work Phone: [facility] Start: 05-11-2024 End: 05-11-2024 Refill Cathleen Lowezpatrick [employer] WE[employer]ER Work Phone: [facility] Comment on above: Other specified anxi ety disorders Start: 04-28-2024 Non-patient / Non-visit [facility] Work Phone: Start: 04-28-2024 End: 04-28-2024 Admission to same day surgery center [facility] Work Phone: Start: 04-28-2024 End: 04-28-2024 ambulatory NON STAFF [facility] Work Phone: Start: 04-14-2024 End: 04-14-2024 Office outpatient new 30 minutes Emmanuel Wyatt DPM Work Phone: [facility] Comment on above: Hallux rigidus of le ft foot (Primary Dx); Type 2 diabetes mellitus without complication, without long-term current use of insulin ([facility]); Hallux rigidus of right foot; Diabetes mellitus due to underlying condition with diabetic polyneuropathy, unspecified whether watermelon inspector insulin use ([facility]); Onychomycosis; Toe pain, bilateral; Venous insufficiency Start: 04-14-2024 End: 04-14-2024 ambulatory EMMANUEL WYATT Not Available Start: 04-14-2024 End: 04-14-2024 Bamboo flowsheet Emmanuel Wyatt DPM Work Phone: [facility] Start: 04-14-2024 End: 04-14-2024 Bamboo flowsheet Emmanuel Wyatt DPM Work Phone: [facility] Start: 03-24-2024 End: 03-24-2024 Office outpatient visit 25 minutes Cathleen Malik [employer] WE[employer]ER Work Phone: [facility] Comment on above: JEFF (obstructive sle ep apnea) (Primary Dx); Primary hypertension ([facility]/HCC); Class 3 severe obesity due to excess calories without serious comorbidity with body mass index (BMI) of 50.0 to 59.9 in adult (CMS/HCC); Type 2 diabetes mellitus without complication, without long-term current use of insulin ([facility]); Other hyperlipidemia ([facility]); Screening for colon cancer; Screening for prostate cancer Start: 03-24-2024 End: 03-24-2024 ambulatory CATHLEEN MALIK Not Available Start: 03-24-2024 End: 03-24-2024 Bamboo flowsheet Cathleen Malik [employer] WE[employer]ER Work Phone: [facility] Start: 03-24-2024 End: 03-24-2024 Bamboo flowsheet Cathleen Malik FRINGE WEAVER Work Phone: [facility] Start: 03-24-2024 End: 03-25-2024 Refill Cathleen Malik FRINGE WEAVER Work Phone: [facility] Comment on above: Type 2 diabetes carine itus without complication, without long- term current use of insulin (CMS/HCC) Start: 09-07-2023 Orders Only Shaikh Leanna WYNNE [...] MD Work Phone: [facility] Start: 03-09-2023 End: 03-09-2023 ambulatory Ban Heaton Other [facility] Other Start: 03-09-2023 Office outpatient vi sit 15 minutes Ban Heaton [facility] [place] Start: 10-08-2022 End: 10-09-2022 ambulatory PATINO Shadi LEANNA Facility:[facility] Start: 11-21-2021 ambulatory SHAIKH Shadi RAM Facilit y:[facility] Start: 07-12-2021 (URG) Urgent Care Visit Ema veliz [facility] [place] Start: 07-12-2021 End: 07-12-2021 ambulatory Ema Mitchell Other [facility] Other Procedures Date Procedure Procedure Detail Performing Clinician Start: 01-04-2025 CA ECHO DOPPLER COMPLETE Onelia Alfred [employer]ER Work Phone: Start: 01-04-2025 TBH VITAMIN D 25 [place] Lis a Alfred FRINGE WEAVER Work Phone: Start: 12-27-2024 ALL BASIC METABOLIC PANEL Onelia Alfred [employer] WEAVER Work Phone: Start: 12-14-2024 Hemoglobin glycosyla faiza a1c Onelia Simon [employer] WE[employer]ER Work Phone: Start: 07-06-2024 End: 07-06-2024 Psychiatric diagnostic evaluation Moderate episode of recurrent major depressive disorder (CMS/HCC) Ira Cr [facility] Comment on above: Moderate episode of recurrent major depressive disorder (CMS/HCC) Start: 05-05-2024 Colonoscopy Cathleen orellana NP Work Phone: Start: 04-28-2024 Screening colonoscopy Start: 02-16-2020 Colonoscopy Shaikh Natan mayer MD Work Phone: Plan of Treatment Date Care Activity Detail Author Start: 05-05-2034 Screening for malign ant neoplasm of colon [facility] Start: 02-15-2030 Screening for malign ant neoplasm of colon [facility] Start: 01-17-2026 End: 01-17-2026 Patient encounter procedure 01/17/2026 5:00 PM EDT Office Visit [facility] [address] [place] [phone] Onelia Simon NP [address] [place] [phone] [facility] Start: 01-11-2026 Medicare Annual Well ness (AWV) Medicare Annual Wellness (AWV) [facility] Start: 06-26-2025 Glaucoma screening Diabetes: R etinopathy Screening [facility] Start: 03-16-2025 Hemoglobin A1c measurement Diabetes: Hemoglobin A1C [facility] Start: 03-14-2025 End: 03-14-2025 Patient encounter procedure 03/14/2025 2:00 PM EDT Office Visit [facility] [address] [place] [address] Onelia Simon NP [address] [place] [phone] [facility] Start: 03-07-2025 End: 01-05-2026 25-hydroxyvitamin D3 [Mass/volume] in Serum or Plasma Vitamin D 25 hydroxy Lab Routine Vitamin D deficiency Hypercalcemia Expected: 03/07/2025 (Approximate), Expires: 01/05/2026 [facility] Comment on above: Expected: 03/07/2025 (Approximate), Expires: 01/05/2026 Start: 03-07-2025 End: 01-05-2026 Basic metabolic 1998 panel - Serum or Plasma Basic metabolic panel Lab Routine Vitamin D deficiency Hypercalcemia Expected: 03/07/2025 (Approximate), Expires: 01/05/2026 [facility] Work Phone: Comment on above: Expected: 03/07/2025 (Approximate), Expires: 01/05/2026 Start: 03-02-2025 Urine screening for protein Diabetes: Urine Protein Screening [facility] Start: 01-25-2025 End: 01-25-2025 Patient encounter procedure 01/25/2025 1:40 PM EDT Office Visit [facility] [address] [place] [address] Onelia Simon NP [address] [place] [phone] [facility] Start: 01-11-2025 End: 01-11-2025 Patient encounter procedure 01/11/2025 2:20 PM EDT Office Visit [facility] [address] [place] [address] Onelia Simon, [employer]E WEAVER [address] [place] [phone] [facility] Start: 01-11-2025 End: 01-11-2026 Creatinine [Mass/volume] in Serum or Plasma Creatinine Lab Routine Primary hypertension Type 2 diabetes mellitus without complication, without long-term current use of insulin (HCC) IQBAL (dyspnea on exertion) Expected: 01/11/2025 (Approximate), Expires: 01/11/2026 [facility] Comment on above: Expected: 01/11/2025 (Approximate), Expires: 01/11/2026 Start: 01-11-2025 End: 01-11-2026 CT Chest W contrast IV CT chest w IV contrast Imaging Routine Dyspnea on exertion Expected: 01/11/2025 (Approximate), Expires: 01/11/2026 [facility] Work Phone: Comment on above: Expected: 01/11/2025 (Approximate), Expires: 01/11/2026 Start: 01-11-2025 End: 01-11-2026 Pulmonary function report Pulmonary Function Test Imaging Routine Dyspnea on exertion Expected: 01/11/2025 (Approximate), Expires: 01/11/2026 [facility] Comment on above: Expected: 01/11/2025 (Approximate), Expires: 01/11/2026 Start: 12-14-2024 End: 12-14-2025 Basic metabolic 1998 panel - Serum or Plasma Basic metabolic panel Lab Routine Primary hypertension (CMS/HCC) Type 2 diabetes mellitus without complication, without long-term current use of insulin Expected: 12/14/2024 (Approximate), Expires: 12/14/2025 [facility] Work Phone: Comment on above: Expected: 12/14/2024 (Approximate), Expires: 12/14/2025 Start: 12-14-2024 End: 12-14-2026 Echocardiogram 2D complete Echocardiogram 2D complete Echocardiography Routine JEFF (obstructive sleep apnea) Primary hypertension (CMS/HCC) Dyspnea on exertion Bilateral lower extremity edema Expected: 12/14/2024 (Approximate), Expires: 12/14/2026 [facility] Comment on above: Expected: 12/14/2024 (Approximate), Expires: 12/14/2026 Start: 12-14-2024 End: 12-14-2025 XR Chest 2 Views XR chest 2 views Imaging Routine Dyspnea on exertion Bilateral lower extremity edema Expected: 12/14/2024 (Approximate), Expires: 12/14/2025 [facility] Comment on above: Expected: 12/14/2024 (Approximate), Expires: 12/14/2025 Start: 12-14-2024 End: 12-14-2024 Patient encounter procedure 12/14/2024 1:20 PM EDT Office Visit [facility] [address] [place] [address] Onelia Simon NP [address] [place] [address] JEFF (obstructive sleep apnea) (Primary Dx); Primary hypertension (CMS/HCC); Class 3 severe obesity due to excess calories without serious comorbidity with body mass index (BMI) of 50.0 to 59.9 in adult; Type 2 diabetes mellitus without complication, without long-term current use of insulin [facility] Comment on above: JEFF (obstructive sle ep apnea) (Primary Dx); Primary hypertension (CMS/HCC); Class 3 severe obesity due to excess calories without serious comorbidity with body mass index (BMI) of 50.0 to 59.9 in adult; Type 2 diabetes mellitus without complication, without long-term current use of insulin Start: 12-12-2024 End: 12-12-2024 Patient encounter procedure 12/12/2024 3:00 PM EDT Office Visit [facility] [address] [place] [phone] Cathleen Malik NP [address] [place] [phone] [facility] Start: 10-27-2024 End: 10-27-2024 Patient encounter procedure 10/27/2024 1:50 PM EDT Procedure Visit [facility] [address] [place] [address] Emmanuel Wyatt, ARMIN [address] [address] [facility] Start: 09-16-2024 Hemoglobin A1c measurement Diabetes: Hemoglobin A1C [facility] Start: 09-13-2024 End: 09-13-2024 Patient encounter procedure [facility] Comment on above: Arrived Start: 08-18-2024 End: 08-18-2024 Patient encounter procedure 08/18/2024 1:40 PM EST Office Visit [facility] [address] [place] [address] Emmanuel Wyatt DPM [address] [address] Type 2 diabetes mellitus without complication, without long-term current use of insulin ([facility]) (Primary Dx); Pain due to onychomycosis of toenails of both feet; Hallux rigidus of left foot; Hallux rigidus of right foot; Venous insufficiency [facility] Comment on above: Type 2 diabetes carine itus without complication, without long- term current use of insulin (CMS/[facility]) (Primary Dx); Pain due to onychomycosis of toenails of both feet; Hallux rigidus of left foot; Hallux rigidus of right foot; Venous insufficiency Start: 08-11-2024 End: 08-11-2024 Patient encounter procedure 08/11/2024 4:10 PM EST Office Visit [facility] [address] [address] Emmanuel Wyatt DPM [address] [address] [facility] Start: 07-25-2024 End: 07-25-2024 Social Work 07/25/2024 1:30 PM EST Social Work [facility] [address] [facility] [address] [place] [address] Ira Cr LPC [facility] Start: 07-21-2024 End: 07-21-2024 Patient encounter procedure 07/21/2024 9:50 AM EST Office Visit [facility] [address] [facility] [address] [place] [address] Emmanuel Wyatt DPM [address] [address] [facility] Start: 07-06-2024 End: 07-06-2024 Social Work 07/06/2024 10:30 AM EST Social Work [facility] [address] [facility] [address] [place] [address] Ira Cr LPC Moderate episode of recurrent major depressive disorder (CMS/HCC) [facility] Comment on above: Moderate episode of recurrent major depressive disorder (CMS/HCC) Start: 06-30-2024 End: 06-30-2024 Patient encounter procedure 06/30/2024 3:40 PM EST Office Visit [facility] [address] [facility] [address] [place] [address] Emmanuel Wyatt DPM [address] [address] [facility] Start: 06-16-2024 End: 06-16-2024 Patient encounter procedure [facility] Comment on above: Arrived Start: 05-27-2024 Urine screening for protein Diabetes: Urine Protein Screening [facility] Start: 04-28-2024 [facility] Start: 04-14-2024 End: 04-14-2024 Patient encounter procedure 04/14/2024 3:40 PM EDT Office Visit [facility] [address] [facility] [facility] [address] [place] [address] Emmanuel Wyatt DPM [address] [address] Type 2 diabetes mellitus without complication, without long-term current use of insulin ([facility]) [facility] Comment on above: Type 2 diabetes carine itus without complication, without long- term current use of insulin ([facility]/HCC) Start: 03-27-2024 Influenza vaccination Influenza Vacc ine (#1) [facility] Start: 03-24-2024 End: 03-24-2024 Patient encounter procedure 03/24/2024 3:00 PM EDT Office Visit [facility] [address] [place] [phone] Cathleen Malik, ELVIA [address] [place] [phone] Arrived [facility] Comment on above: Arrived Start: 03-24-2024 End: 03-24-2025 Prostate specific Ag [Mass/volume] in Serum or Plasma PSA Lab Routine Screening for prostate cancer Expected: 03/24/2024 (Approximate), Expires: 03/24/2025 [facility] Work Phone: Comment on above: Expected: 03/24/2024 (Approximate), Expires: 03/24/2025 Start: 01-24-2024 Influenza vaccination Influenza Vacc ine (#1) [facility] Comment on above: Postponed from 03/27 (Patient Refused) Start: 08-27-2023 End: 08-27-2023 Patient encounter procedure 08/27/2023 3:30 PM EST Office Visit [facility] [address] [place] [phone] Shaikh Ram MD [address] [place] [phone] Arrived [facility] Comment on above: Arrived Start: 08-27-2023 End: 08-27-2024 ECG 12 lead ECG 12 lead ECG Routine IQBAL (dyspnea on exertion) Expected: 08/27/2023 (Approximate), Expires: 08/27/2024 [facility] Work Phone: Comment on above: Expected: 08/27/2023 (Approximate), Expires: 08/27/2024 Start: 08-27-2023 Hemoglobin A1c measurement Diabetes: Hemoglobin A1C [facility] Start: 08-27-2023 End: 08-27-2025 NM Heart Perfusion W adenosine and W radionuclide IV STRESS NUCLEAR MEDICINE [place] Cardiac Nuclear Medicine Routine IQBAL (dyspnea on exertion) Expected: 08/27/2023 (Approximate), Expires: 08/27/2025 [facility] Comment on above: Expected: 08/27/2023 (Approximate), Expires: 08/27/2025 Start: 03-27-2023 Influenza vaccination Influenza Vacc ine (#1) [facility] Start: 1975 Urine screening for protein Diabetes: Urine Protein Screening [facility] Start: 1966 Glaucoma screening Diabetes: R etinopathy Screening [facility] Start: 1956 Hemoglobin A1c measurement Diabetes: Hemoglobin A1C [facility] Start: 1955 Medicare Annual Well ness (AWV) Medicare Annual Wellness (AWV) [facility] Start: 1955 Screening for malign ant neoplasm of colon [facility] Patient Education Hemorrhoids (D C) Colon Polypectomy (DC) Know your Meds [facility] Work Phone: Immunizations Immunization Date Immunization Notes Care Provider Fa [facility] 06-16-2024 influenza, seasonal, injectable, preservative free Ira Cr LPC [facility] 03-09-2023 tetanus toxoid, reduced diphtheria toxoid, and acellular pertussis vaccine, adsorbed Ban Heaton Other [facility] Other 03-09-2023 tetanus and diphther ia toxoids, adsorbed, preservative free, for adult use (5 Lf of tetanus toxoid and 2 Lf of diphtheria toxoid) Shaikh Leanna WYNNE Work Phone: [facility] 05-22-2022 Pneumococcal Conjuga te PCV 20 Shaikh Leanna WYNNE Work Phone: [facility] 05-21-2022 Influenza, High-dose Seasonal, Quadrivalent, Preservative Free Shaikh Leanna WYNNE Work Phone: [facility] 05-21-2022 influenza virus vaccine, unspecified formulation Shaikh Leanna WYNNE Work Phone: [facility] 06-05-2021 influenza, injectabl e, quadrivalent, preservative free Shaikh Leanna WYNNE Work Phone: [facility] 04-25-2020 influenza, injectabl e, quadrivalent, preservative free Shaikh Leanna WYNNE Work Phone: [facility] 07-13-2019 influenza, injectabl e, quadrivalent, preservative free Shaikh Leanna WYNNE Work Phone: [facility] 06-07-2018 influenza, injectabl e, quadrivalent, preservative free Shaikh Leanna WYNNE Work Phone: [facility] 05-17-2017 influenza, injectabl e, quadrivalent, preservative free Shaikh Leanna WYNNE Work Phone: [facility] 05-05-2017 influenza, injectabl e, quadrivalent, preservative free Shaikh Leanna WYNNE Work Phone: [facility] Payers Date Payer Category Payer Medicare [id number] 2024 Medicare [id number] 2024 Self-pay [id number] 2023 Medicare GENERIC MEDICARE ADVANTAGE GENERIC MEDICARE ADVANTAGE [id number] 2023-[facility] [phone] [address] [facility] [address] [place] [address] [id number] 2021 Medicare (Managed Care) 1.2. [id number] 2021 Unknown [id number] 2020 Unknown [id number] 1959 Self-pay [id number] 1956 Unknown [id number] 1956 Unknown [id number] 1956 Unknown [id number] .1259 1956 Unknown [id number] .9 1956 Unknown [id number] .9 1956 Unknown [id number] .1258 1956 Unknown [id number] .9 1956 Unknown [id number] .1258 1956 Unknown [id number] .9 1956 Unknown [id number] Unknown [id number] Social History Date Type Detail Facility Unknown if ever smoked [facility] Other Start: 07-09-2023 End: 03-24-2024 Sex Assigned At [facility] Other Start: 07-09-2023 End: 08-27-2023 Tobacco smoking status [facility] Never smoked tobacco [facility] Start: 07-09-2023 End: 08-27-2023 Tobacco use and exposure Smokeless tobacco non-user [facility] Start: 08-06-2023 End: 01-11-2025 Alcohol intake Lifetime non-drinker (finding) [facility] Start: 07-09-2023 End: 03-24-2024 History of Social function [facility] Start: 1955 Sex Assigned At Not on file [facility] Start: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 colon Screening for prostate cancer Special screening for malignant neoplasm of prostate documented in this encounter [facility] HealthcareEvaluation note* Diagnosis Type 2 diabetes mellitus without complication, without long-term current use of insulin (CMS/HCC) documented in this encounter [facility] HealthcareEvaluation note* Diagnosis Hallux rigidus of left foot- Primary Type 2 diabetes mellitus without complication, without long-term current use of insulin (CMS/HCC) Hallux rigidus of right foot Diabetes mellitus due to underlying condition with diabetic polyneuropathy, unspecified whether watermelon inspector insulin use (CMS/HCC) Onychomycosis Dermatophytosis of nail Toe pain, bilateral Venous insufficiency Unspecified venous (peripheral) insufficiency documented in this encounter [facility] HealthcareEvaluation note* Diagnosis Chronic pain of both knees- Primary IQBAL (dyspnea on exertion)- Primary Other dyspnea and respiratory abnormality JEFF (obstructive sleep apnea) Obstructive sleep apnea (adult) (pediatric) Primary hypertension (CMS/HCC) Unspecified essential hypertension Type 2 diabetes mellitus without complication, without long-term current use of insulin (CMS/HCC) Primary hypertension (CMS/HCC)- Primary Unspecified essential hypertension Other hyperlipidemia (CMS/HCC) Chronic pain of both knees Type 2 diabetes mellitus without complication, without long-term current use of insulin (CMS/HCC) JEFF (obstructive sleep apnea)- Primary Obstructive sleep apnea (adult) (pediatric) Primary hypertension (CMS/HCC) Unspecified essential hypertension Class 3 severe obesity due to excess calories without serious comorbidity with body mass index (BMI) of 50.0 to 59.9 in adult (CMS/HCC) Type 2 diabetes mellitus without complication, without long-term current use of insulin (CMS/HCC) Other hyperlipidemia (CMS/HCC) Screening for colon cancer Special screening for malignant neoplasms, colon Screening for prostate cancer Special screening for malignant neoplasm of prostate 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)- Primary Type II or unspecified type diabetes mellitus with neurological manifestations, not stated as uncontrolled Primary hypertension (CMS/HCC) Unspecified essential hypertension Type 2 diabetes mellitus without complication, without long-term current use of insulin (CMS/HCC) Moderate episode of recurrent major depressive disorder (CMS/HCC) Class 3 severe obesity due to excess calories without serious comorbidity with body mass index (BMI) of 50.0 to 59.9 in adult (CMS/HCC) Need for immunization against influenza Need for prophylactic vaccination and inoculation against influenza Hyperlipidemia, unspecified (CMS/HCC) Essential (primary) hypertension (CMS/HCC) Unspecified essential hypertension documented in this encounter [facility] HealthcareEvaluation note* Diagnosis Chronic pain of both knees- Primary IQBAL (dyspnea on exertion)- Primary Other dyspnea and respiratory abnormality JEFF (obstructive sleep apnea) Obstructive sleep apnea (adult) (pediatric) Primary hypertension (CMS/HCC) Unspecified essential hypertension Type 2 diabetes mellitus without complication, without long-term current use of insulin (CMS/HCC) Primary hypertension (CMS/HCC)- Primary Unspecified essential hypertension Other hyperlipidemia (CMS/HCC) Chronic pain of both knees Type 2 diabetes mellitus without complication, without long-term current use of insulin (CMS/HCC) JEFF (obstructive sleep apnea)- Primary Obstructive sleep apnea (adult) (pediatric) Primary hypertension (CMS/HCC) Unspecified essential hypertension Class 3 severe obesity due to excess calories without serious comorbidity with body mass index (BMI) of 50.0 to 59.9 in adult (CMS/HCC) Type 2 diabetes mellitus without complication, without long-term current use of insulin (CMS/HCC) Other hyperlipidemia (CMS/HCC) Screening for colon cancer Special screening for malignant neoplasms, colon Screening for prostate cancer Special screening for malignant neoplasm of prostate 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)- Primary Type II or unspecified type diabetes mellitus with neurological manifestations, not stated as uncontrolled Primary hypertension (CMS/HCC) Unspecified essential hypertension Type 2 diabetes mellitus without complication, without long-term current use of insulin (CMS/HCC) Moderate episode of recurrent major depressive disorder (CMS/HCC) Class 3 severe obesity due to excess calories without serious comorbidity with body mass index (BMI) of 50.0 to 59.9 in adult (CMS/HCC) Need for immunization against influenza Need for prophylactic vaccination and inoculation against influenza Type 2 diabetes mellitus without complication, without long-term current use of insulin (CMS/HCC) documented in this encounter [facility] HealthcareEvaluation note* Diagnosis Chronic pain of both knees- Primary IQBAL (dyspnea on exertion)- Primary Other dyspnea and respiratory abnormality JEFF (obstructive sleep apnea) Obstructive sleep apnea (adult) (pediatric) Primary hypertension (CMS/HCC) Unspecified essential hypertension Type 2 diabetes mellitus without complication, without long-term current use of insulin (CMS/HCC) Primary hypertension (CMS/HCC)- Primary Unspecified essential hypertension Other hyperlipidemia (CMS/HCC) Chronic pain of both knees Type 2 diabetes mellitus without complication, without long-term current use of insulin (CMS/HCC) JEFF (obstructive sleep apnea)- Primary Obstructive sleep apnea (adult) (pediatric) Primary hypertension (CMS/HCC) Unspecified essential hypertension Class 3 severe obesity due to excess calories without serious comorbidity with body mass index (BMI) of 50.0 to 59.9 in adult (CMS/[facility]) Type 2 diabetes mellitus without complication, without long-term current use of insulin (CMS/HCC) Other hyperlipidemia (CMS/HCC) Screening for colon cancer Special screening for malignant neoplasms, colon Screening for prostate cancer Special screening for malignant neoplasm of prostate Type 2 diabetes mellitus with polyneuropathy (CMS/[facility])- Primary Type II or unspecified type diabetes mellitus with neurological manifestations, not stated as uncontrolled Primary hypertension (CMS/HCC) Unspecified essential hypertension Type 2 diabetes mellitus without complication, without long-term current use of insulin (CMS/HCC) Moderate episode of recurrent major depressive disorder (CMS/[facility]) Class 3 severe obesity due to excess calories without serious comorbidity with body mass index (BMI) of 50.0 to 59.9 in adult (CMS/[facility]) Need for immunization against influenza Need for prophylactic vaccination and inoculation against influenza Type 2 diabetes mellitus without complication, without long-term current use of insulin (CMS/[facility])- Primary Pain due to onychomycosis of toenails of both feet Hallux rigidus of left foot Hallux rigidus of right foot Venous insufficiency Unspecified venous (peripheral) insufficiency documented in this encounter [facility]Evaluation note* Diagnosis Chronic pain of both knees- Primary IQBAL (dyspnea on exertion)- Primary Other dyspnea and respiratory abnormality JEFF (obstructive sleep apnea) Obstructive sleep apnea (adult) (pediatric) Primary hypertension (CMS/HCC) Unspecified essential hypertension Type 2 diabetes mellitus without complication, without long-term current use of insulin (CMS/HCC) Primary hypertension (CMS/HCC)- Primary Unspecified essential hypertension Other hyperlipidemia (CMS/HCC) Chronic pain of both knees Type 2 diabetes mellitus without complication, without long-term current use of insulin (CMS/HCC) JEFF (obstructive sleep apnea)- Primary Obstructive sleep apnea (adult) (pediatric) Primary hypertension (CMS/HCC) Unspecified essential hypertension Class 3 severe obesity due to excess calories without serious comorbidity with body mass index (BMI) of 50.0 to 59.9 in adult (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)- Primary Type II or unspecified type diabetes mellitus with neurological manifestations, not stated as uncontrolled Primary hypertension (CMS/HCC) Unspecified essential hypertension Type 2 diabetes mellitus without complication, without long-term current use of insulin (CMS/HCC) Moderate episode of recurrent major depressive disorder (CMS/HCC) Class 3 severe obesity due to excess calories without serious comorbidity with body mass index (BMI) of 50.0 to 59.9 in adult (CMS/HCC) Need for immunization against influenza Need for prophylactic vaccination and inoculation against influenza Moderate episode of recurrent major depressive disorder (CMS/HCC)- Primary Type 2 diabetes mellitus without complication, without long-term current use of insulin (CMS/HCC) Primary hypertension (CMS/HCC) Unspecified essential hypertension Other hyperlipidemia (CMS/HCC) 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) Type II or unspecified type diabetes mellitus with neurological manifestations, not stated as uncontrolled Diabetes mellitus due to underlying condition with diabetic polyneuropathy (CMS/HCC) documented in this encounter [facility]* Diagnosis Chronic pain of both knees- Primary IQBAL (dyspnea on exertion)- Primary Other dyspnea and respiratory abnormality JEFF (obstructive sleep apnea) Obstructive sleep apnea (adult) (pediatric) Primary hypertension (CMS/HCC) Unspecified essential hypertension Type 2 diabetes mellitus without complication, without long-term current use of insulin Primary hypertension (CMS/HCC)- Primary Unspecified essential hypertension Other hyperlipidemia Chronic pain of both knees Type 2 diabetes mellitus without complication, without long-term current use of insulin JEFF (obstructive sleep apnea)- Primary Obstructive sleep apnea (adult) (pediatric) Primary hypertension (CMS/HCC) Unspecified essential hypertension Class 3 severe obesity due to excess calories without serious comorbidity with body mass index (BMI) of 50.0 to 59.9 in adult Type 2 diabetes mellitus without complication, without long-term current use of insulin Other hyperlipidemia Screening for colon cancer Special screening for malignant neoplasms, colon Screening for prostate cancer Special screening for malignant neoplasm of prostate 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)- Primary Type II or unspecified type diabetes mellitus with neurological manifestations, not stated as uncontrolled Primary hypertension (CMS/HCC) Unspecified essential hypertension Type 2 diabetes mellitus without complication, without long-term current use of insulin Moderate episode of recurrent major depressive disorder (CMS/HCC) Class 3 severe obesity due to excess calories without serious comorbidity with body mass index (BMI) of 50.0 to 59.9 in adult Need for immunization against influenza Need for prophylactic vaccination and inoculation against influenza Moderate episode of recurrent major depressive disorder (CMS/HCC)- Primary Type 2 diabetes mellitus without complication, without long-term current use of insulin Primary hypertension (CMS/HCC) Unspecified essential hypertension Other hyperlipidemia 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) Type II or unspecified type diabetes mellitus with neurological manifestations, not stated as uncontrolled Diabetes mellitus due to underlying condition with diabetic polyneuropathy (CMS/HCC) Lumbar spondylosis- Primary Lumbosacral spondylosis without myelopathy Type 2 diabetes mellitus without complication, without long-term current use of insulin Essential (primary) hypertension (CMS/HCC) Unspecified essential hypertension Other specified anxiety disorders 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) Type II or unspecified type diabetes mellitus with neurological manifestations, not stated as uncontrolled H/O seasonal allergies Type 2 diabetes mellitus without complications Hyperlipidemia, unspecified (CMS/HCC) documented in this encounter [facility]* Diagnosis Chronic pain of both knees- Primary IQBAL (dyspnea on exertion)- Primary Other dyspnea and respiratory abnormality JEFF (obstructive sleep apnea) Obstructive sleep apnea (adult) (pediatric) Primary hypertension (CMS/HCC) Unspecified essential hypertension Type 2 diabetes mellitus without complication, without long-term current use of insulin Primary hypertension (CMS/HCC)- Primary Unspecified essential hypertension Other hyperlipidemia Chronic pain of both knees Type 2 diabetes mellitus without complication, without long-term current use of insulin JEFF (obstructive sleep apnea)- Primary Obstructive sleep apnea (adult) (pediatric) Primary hypertension (CMS/HCC) Unspecified essential hypertension Class 3 severe obesity due to excess calories without serious comorbidity with body mass index (BMI) of 50.0 to 59.9 in adult Type 2 diabetes mellitus without complication, without long-term current use of insulin Other hyperlipidemia Screening for colon cancer Special screening for malignant neoplasms, colon Screening for prostate cancer Special screening for malignant neoplasm of prostate 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)- Primary Type II or unspecified type diabetes mellitus with neurological manifestations, not stated as uncontrolled Primary hypertension (CMS/HCC) Unspecified essential hypertension Type 2 diabetes mellitus without complication, without long-term current use of insulin Moderate episode of recurrent major depressive disorder (CMS/HCC) Class 3 severe obesity due to excess calories without serious comorbidity with body mass index (BMI) of 50.0 to 59.9 in adult Need for immunization against influenza Need for prophylactic vaccination and inoculation against influenza Moderate episode of recurrent major depressive disorder (CMS/HCC)- Primary Type 2 diabetes mellitus without complication, without long-term current use of insulin Primary hypertension (CMS/HCC) Unspecified essential hypertension Other hyperlipidemia 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) Type II or unspecified type diabetes mellitus with neurological manifestations, not stated as uncontrolled Diabetes mellitus due to underlying condition with diabetic polyneuropathy (CMS/HCC) Dyspnea on exertion- Primary Other dyspnea and [...] lower extremity edema documented in this encounter [facility]* Diagnosis Chronic pain of both knees- Primary IQBAL (dyspnea on exertion)- Primary Other dyspnea and respiratory abnormality JEFF (obstructive sleep apnea) Obstructive sleep apnea (adult) (pediatric) Primary hypertension Unspecified essential hypertension Type 2 diabetes mellitus without complication, without long-term current use of insulin (HCC) Primary hypertension- Primary Unspecified essential hypertension Other hyperlipidemia Chronic pain of both knees Type 2 diabetes mellitus without complication, without long-term current use of insulin (HCC) JEFF (obstructive sleep apnea)- Primary Obstructive sleep apnea (adult) (pediatric) Primary hypertension Unspecified essential hypertension Class 3 severe obesity due to excess calories without serious comorbidity with body mass index (BMI) of 50.0 to 59.9 in adult (CMS-HCC) Type 2 diabetes mellitus without complication, without long-term current use of insulin (HCC) Other hyperlipidemia Screening for colon cancer Special screening for malignant neoplasms, colon Screening for prostate cancer Special screening for malignant neoplasm of prostate Type 2 diabetes mellitus with polyneuropathy (HCC)- Primary Type II or unspecified type diabetes mellitus with neurological manifestations, not stated as uncontrolled Primary hypertension Unspecified essential hypertension Type 2 diabetes mellitus without complication, without long-term current use of insulin (HCC) Moderate episode of recurrent major depressive disorder (HCC) Class 3 severe obesity due to excess calories without serious comorbidity with body mass index (BMI) of 50.0 to 59.9 in adult ([facility]) Need for immunization against influenza Need for prophylactic vaccination and inoculation against influenza Moderate episode of recurrent major depressive disorder (HCC)- Primary Type 2 diabetes mellitus without complication, without long-term current use of insulin (HCC) Primary hypertension Unspecified essential hypertension Other hyperlipidemia Type 2 diabetes mellitus with polyneuropathy (HCC) Type II or unspecified type diabetes mellitus with neurological manifestations, not stated as uncontrolled Diabetes mellitus due to underlying condition with diabetic polyneuropathy ([facility]) Dyspnea on exertion- Primary Other dyspnea and respiratory abnormality JEFF (obstructive sleep apnea) Obstructive sleep apnea (adult) (pediatric) Primary hypertension Unspecified essential hypertension Class 3 severe obesity due to excess calories without serious comorbidity with body mass index (BMI) of 50.0 to 59.9 in adult ([facility]) Type 2 diabetes mellitus without complication, without long-term current use of insulin ([facility]) Type 2 diabetes mellitus with polyneuropathy (HCC) Type II or unspecified type diabetes mellitus with neurological manifestations, not stated as uncontrolled Moderate episode of recurrent major depressive disorder (HCC) Bilateral lower extremity edema Vitamin D deficiency- Primary Hypercalcemia documented in this encounter [facility] HealthcareEvaluation note* Diagnosis Chronic pain of both knees- Primary IQBAL (dyspnea on exertion)- Primary Other dyspnea and respiratory abnormality JEFF (obstructive sleep apnea) Obstructive sleep apnea (adult) (pediatric) Primary hypertension Unspecified essential hypertension Type 2 diabetes mellitus without complication, without long-term current use of insulin ([facility]) Primary hypertension- Primary Unspecified essential hypertension Other hyperlipidemia Chronic pain of both knees Type 2 diabetes mellitus without complication, without long-term current use of insulin (HCC) JEFF (obstructive sleep apnea)- Primary Obstructive sleep apnea (adult) (pediatric) Primary hypertension Unspecified essential hypertension Class 3 severe obesity due to excess calories without serious comorbidity with body mass index (BMI) of 50.0 to 59.9 in adult ([facility]) Type 2 diabetes mellitus without complication, without long-term current use of insulin (HCC) Other hyperlipidemia Screening for colon cancer Special screening for malignant neoplasms, colon Screening for prostate cancer Special screening for malignant neoplasm of prostate Type 2 diabetes mellitus with polyneuropathy (HCC)- Primary Type II or unspecified type diabetes mellitus with neurological manifestations, not stated as uncontrolled Primary hypertension Unspecified essential hypertension Type 2 diabetes mellitus without complication, without long-term current use of insulin (HCC) Moderate episode of recurrent major depressive disorder (HCC) Class 3 severe obesity due to excess calories without serious comorbidity with body mass index (BMI) of 50.0 to 59.9 in adult ([facility]) Need for immunization against influenza Need for prophylactic vaccination and inoculation against influenza Moderate episode of recurrent major depressive disorder (HCC)- Primary Type 2 diabetes mellitus without complication, without long-term current use of insulin (HCC) Primary hypertension Unspecified essential hypertension Other hyperlipidemia Type 2 diabetes mellitus with polyneuropathy (HCC) Type II or unspecified type diabetes mellitus with neurological manifestations, not stated as uncontrolled Diabetes mellitus due to underlying condition with diabetic polyneuropathy (HCC) Dyspnea on exertion- Primary Other dyspnea and respiratory abnormality JEFF (obstructive sleep apnea) Obstructive sleep apnea (adult) (pediatric) Primary hypertension Unspecified essential hypertension Class 3 severe obesity due to excess calories without serious comorbidity with body mass index (BMI) of 50.0 to 59.9 in adult ([facility]) Type 2 diabetes mellitus without complication, without long-term current use of insulin (HCC) Type 2 diabetes mellitus with polyneuropathy (HCC) Type II or unspecified type diabetes mellitus with neurological manifestations, not stated as uncontrolled Moderate episode of recurrent major depressive disorder (HCC) Bilateral lower extremity edema Medicare annual wellness visit, subsequent- Primary JEFF (obstructive sleep apnea) Obstructive sleep apnea (adult) (pediatric) Primary hypertension Unspecified essential hypertension Class 3 severe obesity due to excess calories without serious comorbidity with body mass index (BMI) of 50.0 to 59.9 in adult ([facility]) Type 2 diabetes mellitus without complication, without long-term current use of insulin (HCC) IQBAL (dyspnea on exertion) Other dyspnea and respiratory abnormality Dyspnea on exertion Other dyspnea and respiratory abnormality documented in this encounter [facility] Healthcare[facility] and physical note Author Van Trinh [facility] April 28, 2024 10:05am Note Date/Time April 28, 2024 10 :05am [facility] [address] [place] [address] Gastroenterology H&P Signed Patient: Rigo Bolaños JR MR #: [id number] : 1955 Acct:[id number] Age/Sex: 68 / M Adm Date: 4 Loc: Room: Type: [facility] Attending Dr: Van Trinh MD Copies to: NON STAFF Van Trinh MD~ Date of Service: 04/28/2024 HISTORY & PHYSICAL: Patient's history with special attention to the cardiovascular, pulmonary systems and the current problem was reviewed with the patient immediately prior to the procedure. Present medications and doses reviewed in the EMR. Allergies and pertinent laboratory tests were also reviewedat this time in the EMR. The physical examination, as below, was then performed. Indication, assessment and HPI: 68 yo M presents for screening Family history of GI malignancy? yes, multiple first and second degree relativesw/ CRC PHYSICAL EXAMINATION Mouth and Pharynx : moist mucus membranes, normal dentition Cardiac: regular rate, regular rhythm Pulmonary: normal respiratory effort, able to speak in complete sentences Neurological: alert and oriented x3, no focal deficits noted Abdomen: Abdomen soft, non-tender REVIEW OF SYSTEMS Constitutional: Denies malaise, fevers Cardiovascular: Denies chest pain, palpitations Respiratory: Denies shortness of breath, wheezing Gastrointestinal: Per HPI Genitourinary: Denies dysuria, polyuria Musculoskeletal: Denies joint swelling, joint stiffness Neurological: Denies numbness, tingling Integumentary: Denies rashes, skin lesions Endocrine: Denies fatigue, weight loss Written informed consent obtained from the patient. Risks (including but not limited to perforation, infection, bloating, bleeding, need for emergent surgeryand loss of life), benefits and alternatives explained and questions answered. The patient verbalized understanding. Based on history patient is an appropriate candidate for the procedure. Van Trinh MD Documented By: Van Trinh MD 04/28/24 1004 Signed By: <Electronically signed by Van Trinh MD> 04/28/24 1005 [facility] Work Phone: History general Narrative - Reported* Type Description Date Medical History Hypertension Medical History hyperlipidemia Medical History type II diabetes EpiBone Other Hospital Discharge instructions Additional Instructions DISCHARGE INSTRUCTIONS FOR COLONOSCOPY WHAT TO EXPECT: - You may feel full, gassy or cramping after your procedure. In some cases, this may be from a few hours to a day. Walking may help relieve the discomfort. - If you have polyp(s) removed you may note some minor bloody discharge after your first bowel movements. - You should begin to recover from anesthesia within 1 hour of the procedure, however may feel groggy for the next 24 hours. DO's AND DON'Ts: - Call your doctor right away if you have a hard abdomen, severe pain, are passing lots of bright red blood or clots. - Call your doctor if you develop any rashes, hives or difficulty breathing. - Let your doctor know if you have not had a bowel movement by 3 days after your procedure. - If you take 81 mg aspirin for your heart it is safe to resume this medication. - If you take other blood thinner medications your doctor will instruct you when these can safely be resumed. - Do NOT drive for 24 hours. - Do NOT operate machinery such as power tools, Tellmen mowers, snow blowers, sewing machines, etc. for 24 hours. - Avoid alcoholic beverages and drugs for allergies, nerves, or sleep. - Do NOT stay alone. Do NOT leave your child unattended. - Do NOT make important personal or business decisions or sign any legal documents. - Eat solid foods and drink liquids in smaller amounts than usual until normal appetite returns. If you should experience an upset stomach, liquids high in sugar content (soda, Anatoliy-Aid, non-acid juices) are recommended. - You can resume normal activities tomorrow. FOLLOW UP & RECOMMENDATIONS: -You should have a repeat colonoscopy in 5 years. -Notify the doctor if you have any problems. -Follow-up with the GI office as needed. -Follow up with PCP. -Office number [phone].[facility] Work Phone: Reason for referral (narrative)* Consultation (Routine) - Pending Review Specialty Diagnoses / Procedures Referred By Zoila whiteside Referred To Contact Podiatry Diagnoses Type 2 diabetes mellitus without complication, without long-term current use of insulin ([facility]) Procedures VA OFFICE/OUTPATIENT NEW HIGH MDM 60 MINUTES Cathleen Malik, ELVIA [address] [place] [address] Emmanuel Wyatt DPM [address] [place] [address] Referral ID Status Reason Start Date Expiration Date Visits Requested Visits Authorized [id number] Pending Review Specialty Services Required 03/24/2024 09/20/2024 1 1 * Consultation (Routine) - Authorized Specialty Diagnoses / Procedures Referred By Contac t Referred To Contact Gastroenterology Diagnoses Screening for colon cancer Procedures VA OFFICE/OUTPATIENT NEW HIGH MDM 60 MINUTES Cathleen Malik NP [address] [place] [address] Van Trinh MD [address] [address] Referral ID Status Reason Start Date Expiration Date Visits Requested Visits Authorized [id number] Authorized Specialty Services Required 03/24/2024 09/20/2024 1 1 [facility] Summary Purpose Family History No Family History Records Found Relationship Condition Age at Onset Recorded Date/T shamika father Malignant neoplasm of colon Unknown Diabetes mellitus Unknown Unknown Cerebrovascular accident (CVA) Unknown mother Diabetes mellitus Unknown family member Malignant neoplasm of colon Unknown Advance Directives No Advanced Directives Records Found Advance Directive Response Recorded Date/ Time Advance Directives No August 14, 2017 5:50pm Reason for Referral Specialty Diagnoses / Procedures Referred By Contac t Referred To Contact Diagnoses IQBAL (dyspnea on exertion) Procedures STRESS NUCLEAR MEDICINE Shaikh Solorio MD [address] [facility] [place] [address] [facility] [employer] [facility] [address] [place] [address] Phone: [phone] Referral ID Status Reason Start Date Expiration Date V isits Requested Visits Authorized [id number] Pending Review 08/27/2023 02/23/2024 3 3 Chief Complaint and Reason for Visit Chief Complaint Screening for colon cancer Screening for colon cancer Additional Source Comments REASON FOR VISIT (unrecogniz ed section and content) Reason Comments Travel Consult Reason Onset Date Comments Med Refill 05/11/2024 Reason Comments Follow-up Reason Comments Depression Specialty Diagnoses / Procedures Referred By Zoila Referred To Contact Behavioral Health Diagnoses Moderate episode of recurrent major depressive disorder ([facility]/HCC) Procedures VA OFFICE/OUTPATIENT NEW HIGH [facility] Cathleen Malik NP [address] [place] [address] Phone: tel: fax: [facility] [address] [place] [address] Phone: tel: fax: Referral ID Status Reason Start Date Expiration Date Visits Requested Visits Authorized [id number] Authorized Specialty Services Required 4 12/13/2024 52 52 Reason Comments Follow-up Reason Comments Med Change Request Reason Comments DM Foot Care DM NAIL/ BL CALLOUS Specialty Diagnoses / Procedures Referred By Zoila Referred To Contact Podiatry Diagnoses Type 2 diabetes mellitus without complication, without long-term current use of insulin ([facility]) Procedures VA OFFICE/OUTPATIENT NEW HIGH [facility] 60 MINUTES Cathleen Malik NP [address] [facility] [address] Emmanuel Wyatt DPM [address] [place] [address] Referral ID Status Reason Start Date Expiration Date V isits Requested Visits Authorized [id number] Closed Specialty Services Required 03/24/2024 09/20/2024 1 1 Reason Onset Date Comments Med Refill 07/25/2024 Reason Onset Date Comments Med Refill 08/01/2024 Reason Comments DM Foot Care Dm nail care Reason Onset Date Comments Med Refill 10/31/2024 Reason Comments Follow-up Diabetes Reason Comments Medicare Annual Wellness Visit Initial (unrecognized sect ion and content) No Status Records FoundNo Status Records FoundNo Status Records Found INFORMATION SOURCE (unrecogn ized section and content) DATE CREATED AUTHOR 10/17/2022 [facility] DATE CREATED AUTHOR AUTHOR'S ORGANIZ ATION 05/11/2024 [facility] DATE CREATED AUTHOR AUTHOR'S ORGANIZ ATION 01/14/2025 [facility] EPIC Care Teams (unrecognized sec tion and content) Automotive Engineering Technician Relationship Specialty Start Date End Date Shaikh Ram MD [address] [place] [address] PCP - General Internal Medicine 08/26/23 Automotive Engineering Technician Relationship Specialty Start Date End Date Shaikh Ram MD [address] [place] [address] PCP - General Internal Medicine 08/26/23 Automotive Engineering Technician Relationship Specialty Start Date End Date Shaikh Ram MD [address] [place] [address] PCP - General Internal Medicine 08/26/23 Team Status: Active Member Role Status Dates NON STAFF Primary Care Provider Active Team Status: Inactive Member Role Status Dates NON STAFF Primary Care Provider Active Start: April 28, 2024 End: April 28, 2024 Van Trinh MD Attending Provider Active S tart: April 28, 2024 End: April 28, 2024 Team Status: Active Member Role Status Dates NON STAFF Primary Care Provider Active Start: April 28, 2024 Van Trinh MD Attending Provider, Other Provider Active Start: April 28, 2024 Automotive Engineering Technician Relationship Specialty Start Date End Date Bakari Bhat MD [address] [place] [phone] PCP - General Family Medicine 02/29/24 Cathleen Mailk NP [address] [place] [address] Nurse Practitioner Family Medicine 02/29/24 Automotive Engineering Technician Relationship Specialty Start Date End Date Bakari Bhat MD [address] [place] [address] PCP - General Family Medicine 02/29/24 Cathleen Malik NP [address] [place] [address] Nurse Practitioner Family Medicine 02/29/24 Automotive Engineering Technician Relationship Specialty Start Date End Date Bakari Bhat MD [address] [place] [address] PCP - General Family Medicine 02/29/24 Cathleen Malik NP [address] [place] [address] Nurse Practitioner Family Medicine 02/29/24 Automotive Engineering Technician Relationship Specialty Start Date End Date Bakari Bhat MD [address] [place] [address] PCP - General Family Medicine 02/29/24 Cathleen Malik NP [address] [place] [address] Nurse Practitioner Family Medicine 02/29/24 Automotive Engineering Technician Relationship Specialty Start Date End Date Bakari Bhat MD [address] [place] [address] PCP - General Family Medicine 02/29/24 Cathleen Malik NP [address] [place] [address] Nurse Practitioner Family Medicine 02/29/24 Automotive Engineering Technician Relationship Specialty Start Date End Date Bakari Bhat MD [address] [place] [address] PCP - General Family Medicine 02/29/24 Cathleen Malik NP [address] [place] [address] Nurse Practitioner Family Medicine 02/29/24 Automotive Engineering Technician Relationship Specialty Start Date End Date Bakari Bhat MD [address] [place] [address] PCP - General Family Medicine 02/29/24 Cathleen Malik NP [address] [place] [address] Nurse Practitioner Family Medicine 02/29/24 Automotive Engineering Technician Relationship Specialty Start Date End Date Bakari Bhat MD [address] [place] [address] PCP - General Family Medicine 02/29/24 Cathleen Malik NP [address] [place] [address] Nurse Practitioner Family Medicine 02/29/24 Automotive Engineering Technician Relationship Specialty Start Date End Date Bakari Bhat MD [address] [place] [address] PCP - General Family Medicine 02/29/24 Cathleen Malik NP [address] [place] [address] Nurse Practitioner Family Medicine 02/29/24 Automotive Engineering Technician Relationship Specialty Start Date End Date Bakari Bhat MD [address] [place] [address] PCP - General Family Medicine 02/29/24 Cathleen Malik NP [address] [place] [address] Nurse Practitioner Family Medicine 02/29/24 Automotive Engineering Technician Relationship Specialty Start Date End Date Bakari Bhat MD [address] [place] [address] PCP - General Family Medicine 02/29/24 Cathleen Malik NP [address] [place] [address] Nurse Practitioner Family Medicine 02/29/24 Automotive Engineering Technician Relationship Specialty Start Date End Date Bakari Bhat MD [address] [place] [address] PCP - General Family Medicine 02/29/24 Cathleen Malik NP [address] [place] [address] Nurse Practitioner Family Medicine 02/29/24 Automotive Engineering Technician Relationship Specialty Start Date End Date Bakari Bhat MD [address] [place] [address] PCP - General Family Medicine 02/29/24 Cathleen Malik NP [address] [place] [address] Nurse Practitioner Family Medicine 02/29/24 Automotive Engineering Technician Relationship Specialty Start Date End Date Bakari Bhat MD [address] [place] [address] PCP - General Family Medicine 02/29/24 Cathleen Malik NP [address] [place] [address] Nurse Practitioner Family Medicine 02/29/24 Ira Cr LPC Occupational Therapy Program Director Behavioral Health 08/31/24 Automotive Engineering Technician Relationship Specialty Start Date End Date Bakari Bhat MD [address] [place] [address] PCP - General Family Medicine 02/29/24 Cathleen Malik NP [address] [place] [address] Nurse Practitioner Family Medicine 02/29/24 Ira Cr LPC Occupational Therapy Program Director Behavioral Health 08/31/24 Automotive Engineering Technician Relationship Specialty Start Date End Date Bakari Bhat MD [address] [place] [address] PCP - General Family Medicine 02/29/24 Cathleen Malik NP [address] [place] [address] Nurse Practitioner Family Medicine 02/29/24 Ira Cr LPC Occupational Therapy Program Director Behavioral Health 08/31/24 Automotive Engineering Technician Relationship Specialty Start Date End Date Bakari Bhat MD [address] [place] [address] PCP - General Family Medicine 02/29/24 Cathleen Malik NP [address] [place] [address] Nurse Practitioner Family Medicine 02/29/24 Ira Cr LPC Occupational Therapy Program Director Behavioral Health 08/31/24 Automotive Engineering Technician Relationship Specialty Start Date End Date Bakari Bhat MD [address] [place] [address] PCP - General Family Medicine 02/29/24 Cathleen Malik NP [address] [place] [address] Nurse Practitioner Family Medicine 02/29/24 Ira Cr LPC Occupational Therapy Program Director Behavioral Health 08/31/24 Automotive Engineering Technician Relationship Specialty Start Date End Date Bakari Bhat MD [address] [place] [address] PCP - General Family Medicine 02/29/24 Cathleen Malik NP [address] [place] [address] Nurse Practitioner Family Medicine 02/29/24 Ira Cr LPC Occupational Therapy Program Director Behavioral Health 08/31/24 Automotive Engineering Technician Relationship Specialty Start Date End Date Bakari Bhat MD [address] [place] [address] PCP - General Family Medicine 02/29/24 Cathleen Malik NP [address] [place] [address] Nurse Practitioner Family Medicine 02/29/24 Ira Cr LPC Occupational Therapy Program Director Behavioral Health 08/31/24 Automotive Engineering Technician Relationship Specialty Start Date End Date Bakari Bhat MD [address] [place] [address] PCP - General Family Medicine 02/29/24 Cathleen Malik NP [address] [place] [address] Nurse Practitioner Family Medicine 02/29/24 Ira Cr LPC Occupational Therapy Program Director Behavioral Health 08/31/24 Automotive Engineering Technician Relationship Specialty Start Date End Date Bakari Bhat MD [address] [place] [address] PCP - General Family Medicine 02/29/24 Cathleen Malik NP [address] [place] [address] Nurse Practitioner Family Medicine 02/29/24 Ira Cr LPC Occupational Therapy Program Director Behavioral Health 08/31/24 Automotive Engineering Technician Relationship Specialty Start Date End Date Bakari Bhat MD [address] [place] [address] PCP - General Family Medicine 02/29/24 Cathleen Malik NP [address] [place] [address] Nurse Practitioner Family Medicine 02/29/24 Ira Cr LPC Occupational Therapy Program Director Behavioral Health 08/31/24 FOR RECORDS PERTAINING TO PATIENTS WHO ARE [...] BE BASED ON THE PRIMARY CLINICAL RECORDS. [employer] provides no warranty or guarantee of the accuracy or completeness of information in this document.
--- OUTSIDE RECORDS SUMMARY | 2025-01-17 07:29 | XMS_ITS | Encounter Summary ---
Author Organization [employer] s tem Address [facility] [place]-[id number] [address] [place] [address] Care Team Providers Care Block Mechanic Name Role Phone Mary Alice Schultz Primary Care Provider Reason for Visit * Reason Onset Date Comments Med Refill 05/10/2024 Encounter Details Date Type Department Care Team (Late st Contact Info) Description 05/10/2024 Refill [facility] Internal Medicine - Family Medicine [address] [place] [address] Maria Teresa Torres CMA Social History Tobacco [...] on filedocumented in this encounter Care Teams Block Mechanic Relationship Specialty Start Date End Date Mary Alice Schultz APRN-CNP [address] [place] [id number] PCP - General Family Medicine 08/27/17 documented as of this encounter
--- OUTSIDE RECORDS SUMMARY | 2025-01-17 07:29 | XMS_ITS | Encounter Summary ---
Author Organization [facility] Address [address] [facility] [place] [address] Care Team Providers Care Phonograph Mechanic Name Role Phone Bakari Bhat MD Primary Care Provider [phone] Cathleen Malik NP Unavailable [phone] Faisal Cr LPC Unavailable Unavailable Encounter Details Date Type Department Care Team (Late st Contact Info) Description 01/04/2025 Clinisync Result Encounter [facility] External Department Unsolicited Onelia Simon NP [address] [place] [address] Social History Tobacco Use Types Packs/Day Years [...] EDT Office Visit [facility] [address] [place] [phone] Onelia Simon NP [address] [place] [address] 01/17/2026 5:00 PM EDT Office Visit [facility] [address] [place] [address] Onelia Simon NP [address] [place] [phone] documented as of this encounter Procedures Procedure Name Priority Date/Time Associated Diagnosis Comments TBH VITAMIN D 25 OH Routine 01/04/2025 1 2:56 PM EDT documented in this encounter Results * TBH VITAMIN D 25 OH (01/04/2025 12:56 PM EDT) VITAMIN D 27.9 ng/mL TB Comment: <20 ng/mL Vit D deficient 20-<30 ng/mL Vit D insufficient 30-100 ng/mL Vit D sufficient >100 ng/mL Potential Toxicity 01/04/2025 12:5 6 PM EDT 01/04/2025 12:57 PM EDT Narrative [facility] - 01/04/2025 2:10 PM EDT us Onelia Simon NP [facility] Final Result [facility] documented in this encounter Visit Diagnoses Not on filedocumented in this encounter Additional Health Concerns Assessment Noted Time PHQ-9 Depression Total Score: 15 024 3:36 PM EST documented as of this encounter Care Teams Phonograph Mechanic Relationship Specialty Start Date End Date Bakari Bhat MD [address] [place] [address] PCP - General Family Medicine 02/29/24 Cathleen Malik NP [address] [place] [address] Nurse Practitioner Family Medicine 02/29/24 Faisal Cr LPC Deputy Juvenile Officer Behavioral Health 08/31/24 documented as of this encounter
--- OUTSIDE RECORDS SUMMARY | 2025-01-17 07:29 | XMS_ITS | Encounter Summary ---
Author Organization [facility] Address [address] [place] [address] Care Team Providers Care Packaging Supervisor Name Role Phone Shaikh RICCI Ram Primary Care Provider Shaikh RICCI Ram Primary Care Provider Bakari Bhat MD Primary Care Provider Cathleen Malik CHIPPER FEEDER Unavailable [phone] Faisal Cr LPC Unavailable Unavailable Encounter Details Date Type Department Care Team (Late st Contact Info) Description 07/22/2023 [facility] [address] [place] [address] Shaikh Ram MD [address] [place] [address] Social History Tobacco Use Types [...] Office Visit [facility] [address] [place] [address] Onelia Simon NP [address] [place] [address] 01/17/2026 5:00 PM EDT Office Visit [facility] [address] [place] [phone] Onelia Simon NP [address] [place] [address] documented as of this encounter Procedures Procedure [...] on filedocumented in this encounter Care Teams Packaging Supervisor Relationship Specialty Start Date End Date Shaikh Ram MD PCP - General Internal Medicine 07/27/22 08/25/23 Shaikh Ram MD [address] [place] [phone] PCP - General Internal Medicine 08/26/23 02/28/24 Bakari Bhat MD [address] [place] [address] PCP - General Family Medicine 02/29/24 Cathleen Malik NP [address] [place] [phone] Nurse Practitioner Family Medicine 02/29/24 Faisal Cr LPC Manager Social Services Behavioral Health 08/31/24 documented as of this encounter
--- OUTSIDE RECORDS SUMMARY | 2025-01-17 07:29 | XMS_ITS | Encounter Summary ---
Author Organization [facility] tem Address [id number] [address] [place] [address] Care Team Providers Care Cash Crop Farmer Name Role Phone Mary Alice Schultz APRN-TRAINS DISPATCHER SUPERVISOR Primary Care Provider Reason for Visit * Reason Onset Date Comments Med Refill 04/21/2022 Encounter Details Date Type Department Care Team (Late st Contact Info) Description 04/21/2022 [facility] [address] [place] [address] Maria Teresa Torres CMA Social History Tobacco [...] on filedocumented in this encounter Care Teams Cash Crop Farmer Relationship Specialty Start Date End Date Mary Alice Schultz APRN-BASIM [address] [place] [address] PCP - General Family Medicine 08/27/17 documented as of this encounter
--- OUTSIDE RECORDS SUMMARY | 2025-01-17 07:29 | XMS_ITS | Encounter Summary ---
Author Organization [facility] [employer] s tem Address [id number] [address] [place] [address] Care Team Providers Care Link And Link Knitting Machine Operator Name Role Phone Mary Alice Schultz Primary Care Provider Reason for Visit * Reason Onset Date Comments Med Refill 04/20/2023 Encounter Details Date Type Department Care Team (Late st Contact Info) Description 04/20/2023 Refill [facility] Internal Medicine - Family Medicine [address] [place] [address] Mary Alice Schultz APRN-CNP [facility] [place], [place] [phone] Social History Tobacco Use Types Packs/Day Years [...] on filedocumented in this encounter Care Teams Link And Link Knitting Machine Operator Relationship Specialty Start Date End Date Mary Alice Schultz APRN-CNP [address] [place] [address] PCP - General Family Medicine 08/27/17 documented as of this encounter
--- OUTSIDE RECORDS SUMMARY | 2025-01-17 07:29 | XMS_ITS | Encounter Summary ---
Author Organization [facility] Address [address] [place] [address] Care Team Providers Care Motor Vehicle Compliance Analyst Name Role Phone Shaikh RICCI Ram Primary Care Provider Shaikh RICCI Ram Primary Care Provider [phone] Bakari Bhat MD Primary Care Provider Cathleen Malik COPY WRITER Unavailable [phone] Faisal Cr LPC Unavailable Unavailable Reason for Visit * Reason Comments Med Refill Encounter Details Date Type Department Care Team (Late st Contact Info) Description 08/12/2023 Refill [facility] [address] [place] [address] Shaikh Ram MD [address] [place] [address] Other specified anxiety disorders Social History Tobacco [...] 2:00 PM EDT Office Visit [facility] [address] [place] [address] Onelia Simon, [employer] [address] [place] [address] 01/17/2026 5:00 PM EDT Office Visit [facility] [address] [place] [address] Onelia Simon, ELV[employer] [address] [place] [address] documented as of this encounter Visit Diagnoses Diagnosis Other specified anxiety disorders documented in this encounter Care Teams Motor Vehicle Compliance Analyst Relationship Specialty Start Date End Date Shaikh Ram MD PCP - General Internal Medicine 07/27/22 08/25/23 Shaikh Ram MD [address] [place] [phone] PCP - General Internal Medicine 08/26/23 02/28/24 Bakari Bhat MD [address] [place] [address] PCP - General Family Medicine 02/29/24 Cathleen Malik NP [address] [place] [phone] Nurse Practitioner Family Medicine 02/29/24 Faisal Cr LPC Child Attendant Behavioral Health 08/31/24 documented as of this encounter
--- OUTSIDE RECORDS SUMMARY | 2025-01-17 07:29 | XMS_ITS | Encounter Summary ---
Author Organization [facility] Address [address] [place] [address] Care Team Providers Care Chair Caner Name Role Phone Bakari Bhat MD Primary Care Provider [phone] Cathleen Malik NP Unavailable [phone] Faisal Cr LPC Unavailable Unavailable Encounter Details Date Type Department Care Team (Late st Contact Info) Description 06/20/2024 Abstract [facility] [address] [place] [address] Cathleen Malik NP Social History [...] Office Visit [facility] [address] [place] [address] Onelia Simon NP [address] [place] [address] 01/17/2026 5:00 PM EDT Office Visit [facility] [address] [place] [address] Onelia Simon, ELVIA [address] [place] [address] documented as of this encounter Visit Diagnoses Not on filedocumented in this encounter Additional Health Concerns Assessment Noted Time PHQ-9 Depression Total Score: 15 024 3:36 PM EST documented as of this encounter Care Teams Chair Caner Relationship Specialty Start Date End Date Bakari Bhat MD [address] [place] [address] PCP - General Family Medicine 02/29/24 Cathleen Malik NP [address] [place] [address] Nurse Practitioner Family Medicine 02/29/24 Faisal Cr LPC Kiln Loader Behavioral Health 08/31/24 documented as of this encounter
--- OUTSIDE RECORDS SUMMARY | 2025-01-17 07:29 | XMS_ITS | Encounter Summary ---
Author Organization [facility] Address [address] [place] [address] Care Team Providers Care Security Door Installer Name Role Phone Bakari Bhat MD Primary Care Provider Cathleen Malik HAMMERER Unavailable [phone] Faisal Cr LPC Unavailable Unavailable Encounter Details Date Type Department Care Team (Late st Contact Info) Description 01/05/2025 [facility] [address] [place] [address] Shaikh Ram MD [address] [place] [address] Social History Tobacco Use Types Packs/Day Years [...] Office Visit [facility] [address] [place] [address] Onelia Simon NP [address] [place] [address] 01/17/2026 5:00 PM EDT Office Visit [facility] [address] [place] [address] Onelia Simon NP [address] [place] [address] documented as of this encounter Procedures Procedure Name Priority Date/Time Associated Diagnosis Comments STRESS CARDIAC STRESS/LEXISCAN Routine 01/05/2025 2:00 PM EDT documented in this encounter Results * STRESS CARDIAC STRESS/LEXISCAN (01/05/2025 2:00 PM EDT) Anatomical Region Laterality Modality Radiographic Renee ging us Shaikh Leanna WYNNE IMG XR PROCEDURES Final Result documented in this encounter Visit Diagnoses Not on filedocumented in this encounter Additional Health Concerns Assessment Noted Time PHQ-9 Depression Total Score: 15 024 3:36 PM EST documented as of this encounter Care Teams Security Door Installer Relationship Specialty Start Date End Date Bakari Bhat MD [address] [place] [address] PCP - General Family Medicine 02/29/24 Cathleen Malik NP [address] [place] [address] Nurse Practitioner Family Medicine 02/29/24 Faisal Cr LPC Credit Union Manager Behavioral Health 08/31/24 documented as of this encounter
--- OUTSIDE RECORDS SUMMARY | 2025-01-17 07:29 | XMS_ITS | Clinical Summary ---
Author Organization [facility] Healthcare Address [address] [place] [address] Care Team Providers Care District Captain Name Role Phone Bakari Bhat MD Primary Care Provider [phone] Cathleen Malik FOREPART LASTER Unavailable [phone] Faisal Cr LPC Unavailable Unavailable Allergies No [...] (Coreg) 12.5 MG tabletIndications: Essential (primary) hypertension Take 1 tablet (12.5 mg) by mouth every 12 (twelve) hours 180 tablet 11/01/19 25 Active gabapentin (Neurontin) 100 MG capsuleIndications :Type 2 diabetes mellitus with polyneuropathy (HCC) Take 1 capsule (100 mg) by mouth in the morning and 1 capsule (100 mg) before bedtime. 180 capsule 11/01/19 25 Active lisinopril-hydroCH LOROthiazide 20-25 MG tabletIndications: Essential (primary) hypertension Take 1 tablet by mouth Daily 90 tablet 11/01/19 25 Active metFORMIN (Glucophage) 1000 MG tabletIndications: Type 2 diabetes mellitus without complications (HCC) [...] pravastatin (Pravachol) 40 MG tabletIndications: Hyperlipidemia, unspecified Take 1 tablet (40 mg) by mouth Daily 90 tablet 11/01/19 25 Active Continuous Glucose Insurance Verifier (FreeStyle Anamaria 3 Popejoy) deviceIndications: Type 2 diabetes mellitus without complication, without long-term current use of insulin (HCC) 1 each continuously 1 each 11/01/19 25 Active Continuous Glucose Sensor (FreeStyle Anamaria 3 Plus Sensor) miscIndications:Ty pe 2 diabetes mellitus without complication, without long-term current use of insulin (HCC) 1 each continuously 2 each 11 11/01/19 25 Active DULoxetine (Cymbalta) [address] capsuleIndications :Moderate episode of recurrent major depressive disorder (HCC) Take 1 capsule (60 mg) by mouth Daily Do not crush or chew. 90 capsule 12/15/19 25 025 Active cholecalciferol (Vitamin D-3) 50 MCG (2000 UT) tabletIndications: Vitamin D deficiency Take 1 tablet (50 mcg) by mouth Daily 30 tablet 2 01/06/20 25 025 Active methocarbamol (Robaxin) 750 MG tablet Take 750 mg by mouth every 8 (eight) hours 12/28/19 25 Active etodolac (Lodine) 300 MG capsule TAKE 1 CAPSULE BY MOUTH EVERY 8 HOURS NEEDED FOR PAIN 12/28/19 25 Active Active Problems Problem Noted Date Diagnosed Date Medicare annual wellness visit, subsequent 01/11 Assessment & Plan (01/11/2025 7:42 AM EDT): Reviewed Ht/Wt/BMI Recommend eye exam yearly Recommend dental exams twice a year Balance work/leisure activities Exercises is recommended most days of the week (appropriate as chronic conditions allow) Follow up yearly and prn Vitamin D deficiency 01/05/2025 Hypercalcemia 12/28/2024 Dyspnea on exertion 12/14/2024 Assessment & Plan (01/11/2025 3:33 PM EDT): See echo results Will order PFT and CT chest Assessment & Plan (12/14/2024 1:56 PM EDT): [...] 03/24/2024 Primary hypertension 08/27/2023 Assessment & Plan (01/11/2025 7:42 AM EDT): Please check blood pressure daily and record DASH diet Limit caffeine Take medication as directed Contact office if chest pain, pressure, dizziness, shortness of breath, swelling legs Recommend slow position changes Current meds: b joaquin, lisinopril/hydrochlorothiazide Assessment & Plan (12/14/2024 7:01 AM EDT): [...] (obstructive sleep apnea) 08/27/2023 Assessment & Plan (01/11/2025 7:41 AM EDT): You have a diagnosis of obstructive sleep apnea. It is recommended that you wear your PAP device any time while in bed sleeping. Not using the PAP device can increase your risk of elevated/uncontrolled high blood pressure, atrial fibrillation, heart attack, stroke, or sudden . Compliance with PAP: no Could not tolerate the mask, dried mouth out too much Assessment & Plan (12/14/2024 1:44 PM EDT): [...] use of insulin 08/27/2023 Assessment & Plan (01/11/2025 7:42 AM EDT): Check blood sugars daily, notify if [...] statin A1c: 7.0% 12/14/24 Assessment & Plan (12/14/2024 1:56 PM EDT): [...] and has poor insight. He also saw district manager major accounts sales before to help manage his meals, improve his diet. Tolerating meds w/o adverse effects Switch from trulicity to ozempic due to insurance prefera[ence. Check labs Assessment & Plan (08/27/2023 5:23 PM EST): Last A1C 7.1 06/18. On metformin and trulicity. Non compliant with diet and has poor insight. He also saw district manager major accounts sales before to help manage his meals, improve his diet. Tolerating meds w/o adverse effects C/w same. Other acute sinusitis 07/09/2023 Non-seasonal allergic rhinitis 07/09/2023 Class 3 severe obesity due t o excess calories without serious comorbidity with body mass index (BMI) of 50.0 to 59.9 in adult 07/09/2023 Assessment & Plan (01/11/2025 7:42 AM EDT): Discussed with patient their BMI (actual, verses recommended). We have also discussed lifestyle modifications: attempts to perform physical activity as chronic conditions allow, also to monitor dietary intake: increasing protein/fruits/veggies and lowering carb intake (unless contraindicated). Limit sodas, juices, and sugary drinks. Currently prescribed ozempic Assessment & Plan (12/14/2024 7:02 AM EDT): [...] (08/27/2023): Added automatically from request for surgery [id number] Lumbar spondylosis 10/06/2018 Lumbosacral spondylosis without myelopathy 08/30 Overview (08/27/2023): Added automatically from request for surgery [id number] Major depression Assessment & Plan (12/14/2024 1:56 [...] to. Denies SI/HI. Referral sent to . Resolved Problems Problem Noted Date Diagnosed Date Resolved Date IQBAL (dyspnea on exertion) 08/27/2023 Assessment & [...] as the probable explanation for exertional dyspnea. Encounters Date Type Department Care Team Description 01/11/2025 2:20 PM EDT Office Visit [facility] [address] [place] [address] Onelia Simon NP Medicare annual wellness visit, subsequent (Primary Dx); JEFF (obstructive sleep apnea); Primary hypertension ; Class 3 severe obesity due to excess calories without serious comorbidity with body mass index (BMI) of 50.0 to 59.9 in adult ([facility]); Type 2 diabetes mellitus without complication, without long-term current use of insulin ([facility]); IQBAL (dyspnea on exertion); Dyspnea on exertion 01/11/2025 Bamboo flowsheet [facility] [address] [place] [address] Onelia Simon NP 01/05/2025 Orders Only [facility] [address] [place] [address] Shaikh Ram MD 01/05/2025 Refill [facility] [address] [place] [address] Onelia Simon, ELVIA Vitamin D deficiency (Primary Dx); Hypercalcemia 01/04/2025 Clinisync Result Encounter [facility] External Department Unsolicited Onelia Simon, FOREPART LASTER 01/04/2025 Clinisync Result Encounter [facility] External Department Unsolicited Onelia Simon, FOREPART LASTER 12/28/2024 Orders Only [facility] [address] [place] [address] Onelia Simon, FOREPART LASTER Hypercalcemia (Primary Dx) 12/27/2024 Orders Only [facility] [address] [place] [address] Sotero Ham MD 12/27/2024 Clinisync Result Encounter [facility] External Department Unsolicited Onelia Simon, FOREPART LASTER 12/14/2024 1:20 PM EDT Office Visit [facility] [address] [place] [address] Onelia Simon, ELVIA Dyspnea on exertion (Primary Dx); JEFF (obstructive sleep apnea); Primary hypertension ; Class 3 severe obesity due to excess calories without serious comorbidity with body mass index (BMI) of 50.0 to 59.9 in adult ([facility]); Type 2 diabetes mellitus without complication, without long-term current use of insulin ([facility]); Type 2 diabetes mellitus with polyneuropathy ([facility]); Moderate episode of recurrent major depressive disorder ([facility]); Bilateral lower extremity edema 12/14/2024 Bamboo flowsheet [facility] [address] [place] [address] Onelia Simon, FOREPART LASTER 11/01/2024 Refill [facility] [address] [place] [address] Bakari Bhat MD 10/31/2024 Refill [facility] [address] [place] [address] Bakari Bhat MD Lumbar spondylosis (Primary Dx); Type 2 diabetes mellitus without complication, without long-term current use of insulin (HCC); Essential (primary) hypertension ; Other specified anxiety disorders; Type 2 diabetes mellitus with polyneuropathy (HCC); H/O seasonal allergies; Type 2 diabetes mellitus without complications (HCC); Hyperlipidemia, unspecified from Last 3 Months Immunizations Immunization Administration [...] oz) 01/11/2025 2:49 P M EDT Height 167.6 cm (5' 6 ) 09/13/2024 3:36 PM EST Body Mass Index 51.62 09/13/2024 3:36 PM EST Plan of Treatment Upcoming Encounters Date Type Department Care Team (Late st Contact Info) Description 03/14/2025 2:00 PM EDT Office Visit [facility] [address] [place] [address] Onelia Simon, ELVIA [address] [place] [address] 01/17/2026 5:00 PM EDT Office Visit [facility] [address] [place] [address] Onelia Simon NP [address] [place] [address] Health Maintenance Due Date Last Done Comments CT Colonography 1955 FIT-DNA 1955 FIT 1955 FOBT 1955 Sigmoidoscopy 1955 Diabetes: Urine Protein Screening 03/02/2025 024, 05/27/2023 Diabetes: Hemoglobin A1C 03/16/2025 025, 06/16/2024, 05/27/2023 Diabetes: Retinopathy Screening 06/26/2025 Medicare Annual Wellness (AWV) 01/11/2026 01/11/2025 , 01/11/2025 Colonoscopy 05/05/2034 05/05/2024 Colorectal Cancer Screening 05/05/2034 Pneumococcal Vaccine: 65+ Years Completed Influenza Vaccine Completed 06/16/2024, , 06/05/2021, Additional history exists Procedures Procedure Name Priority Date/Time Associated Diagnosis Comments STRESS CARDIAC STRESS/LEXISCAN Routine 01/05/2025 2:00 PM EDT CA ECHO DOPPLER COMPLETE 01/04/2025 6:00 PM EDT [facility] VITAMIN D 25 [place] Routine 01/04/2025 1 2:56 PM EDT XR LUMBAR SPINE 2-3 VIEWS Routine 12/27/2024 1:17 PM EDT ALL BASIC METABOLIC PANEL Routine 12/27/2024 11:50 AM EDT POCT GLYCOSYLATED HEMOGLOBIN (HGB A1C) Routine 12/14/2024 2:05 PM EDT Type 2 diabetes mellitus without complication, without long-term current use of insulin (HCC) COLONOSCOPY DIAGNOSTIC Routine 05/05/2024 8:38 AM EDT from Last 3 Months or Most Recently Relevant to Health Maintenance Results * STRESS CARDIAC STRESS/LEXISCAN (01/05/2025 2:00 PM EDT) Anatomical Region Laterality Modality Radiographic Renee ging us Shaikh Leanna WYNNE IMG XR PROCEDURES Final Result * CA ECHO DOPPLER COMPLETE (01/04/2025 6:00 PM EDT) Anatomical Region Laterality Modality Other 01/04/2025 6:00 PM EDT Narrative 01/04/2025 6:02 [place] [address] Cardiology Report Signed Patient: RIGO BOLAÑOS MR#: [id number] : 1955 Acct:[id number] Age/Sex: 69 / M ADM Date: 01/04/25 Loc: CARD Attending Dr: Onelia Simon NP Ordering Physician: Onelia Simon NP Date of Service: 01/04/25 Procedure(s): CA echo doppler complete Accession Number(s): [id number] cc: Onelia Simon NP Patient Name: RIGO BOLAÑOS MR#: [id number] : 1955 Exam Date: 01/04/2025 Ordering Doctor: [...] By: CANDICE FOWLER Signed By: 01/04/25 1802 DD/ 1800 TD/TT: Wire Harness Assembler: Procedure Note Radiology, Radiologist, MD - 01/04/2025 [place] [address] Cardiology Report Signed Patient: RIGO BOLAÑOS EMR#: [id number] : 1955cct:[id number] Age/Sex: 69 / MADM Date: 01/04/25 Loc: CARD Attending Dr: Onelia Simon NP Ordering Physician: Onelia Simon NP Date of Service: 01/04/25 Procedure(s): CA echo doppler complete Accession Number(s): [id number] cc: Onelia Simon NP Patient Name: RIGO BOLAÑOS MR#: [id number] : 1955 Exam Date: 01/04/2025 Ordering Doctor: BASIM SIMON CNP ECHOCARDIOGRAM REPORT PROCEDURE: CA ECHO DOPPLER COMPLETE INDICATIONS: JEFF, HTN, IQBAL, BLEE COMPARISON: None. DESCRIPTION: COMPLETE ECHOCARDIOGRAM Real-time transthoracic echocardiography with 2D, M-mode, spectral and color flow Dopplerperformed. QUALITY: Technical quality was limited because of body habitus. Suboptimal image quality. Contrast imaging is recommended if clinically warranted. LEFT VENTRICLE: Normal chamber size. Moderate concentric leftventricular hypertrophy. Global left ventricular systolic function is normal. LV EF: Visual estimation of left ventricular ejection fraction is 55%. DIASTOLIC: ATRIAL SEPTUM: LEFT ATRIUM: Mild dilatation. RIGHT ATRIUM: Mild dilatation. RIGHT VENTRICLE: Normal chamber size. Normal right ventricularsystolic function. TRICUSPID VALVE: Normal mobility and thickness. No regurgitation. Unableto assess right-sided pressures due to lack of measurable tricuspid regurgitation. MITRAL VALVE: Normal mobility and thickness. There is no mitralannular calcification. No mitral regurgitation. AORTIC VALVE: Normal trileaflet appearance. No visible sclerosis.Normal leaflet mobility. No evidence of aortic valve [...] estimated at 55%. Segmental wall motion cannot beassessed accurately due to poor sound transmission. 2. Normal right ventricular size and systolic function. 3. Mild biatrial dilatation. 4. No significant valvular dysfunction. 5. Unable to assess right-sided pressures due to lack of measurabletricuspid regurgitation. Adult Echocardiography Procedure Report Left Ventricle [...] at 18:00 Dictated By: CANDICE FOWLER Signed By:01/04/25 1802 DD/ 1800 TD/TT: Wire Harness Assembler: Onelia Simon NP [facility] Final Result * [facility] VITAMIN D 25 [place] (01/04/2025 12:56 PM EDT) VITAMIN D 27.9 ng/mL [facility] Comment: <20 ng/mL Vit D deficient 20-<30 ng/mL Vit D insufficient 30-100 ng/mL Vit D sufficient >100 ng/mL Potential Toxicity 01/04/2025 12:5 6 PM EDT 01/04/2025 12:57 PM EDT Narrative [facility] - 01/04/2025 2:10 PM EDT Onelia Simon NP [facility] Final Result [facility] TB * XR lumbar spine 2 or 3 views (12/27/2024 1:17 PM EDT) Anatomical Region Laterality Modality Spine, L-spine Radiographic Renee ging Sotero Ham MD IMG XR PROCEDURES Final Resul t * (ABNORMAL) ALL BASIC METABOLIC PANEL (12/27/2024 11:50 AM EDT) SODIUM 139 136 - 145 mmol/L TBH POTASSIUM 4.5 3.5 - 5.1 mmol/L [facility] CHLORIDE 98 98 - 107 mmol/L [facility] CARBON DIOXIDE 29.9 21.0 - 32.0 mmol/L TB[facility] ANION GAP 15.6 TB[facility] GLUCOSE 177(H) 74 - 106 mg/dL [facility] BLOOD UREA NITROGEN 16.0 7.0 - 18.0 mg/dL [facility] CREATININE 0.85 0.70 - 1.30 mg/dL TBH TBH EGFR-AF KITTITIAN >60 >=60 mL/min/1.7 3m 2 TBH TBH EGFR-NON AF KITT[place]IAN >60 >=60 mL/min/1.7 3m 2 TB[facility] BUN CREATININE RATIO 18.8 TBH CALCIUM 10.2(H) 8.5 - 10.1 mg/dL [facility] 12/27/2024 11:5 0 AM EDT 12/27/2024 11:51 AM EDT Narrative [facility] - 12/27/2024 1:06 PM EDT Onelia Simon NP [facility] Final Result [facility] * (ABNORMAL) POCT glycosylated hemoglobin (Hb A1C) [...] Address Personal/Family Self 1955 [address] [place] [address] [employer] Care Teams District Captain Relationship Specialty Start Date End Date Bakari Bhat MD [address] [place] [address] PCP - General Family Medicine 02/29/24 Cathleen Malik NP [address] [place] [address] Nurse Practitioner Family Medicine 02/29/24 Faisal Cr LPC Weaving Professor Behavioral Health 08/31/24
--- OUTSIDE RECORDS SUMMARY | 2025-01-17 07:29 | XMS_ITS | Encounter Summary ---
Author Organization [facility] tem Address [id number] [address] [place] [address] Care Team Providers Care Director Compensation Name Role Phone Mary Alice Schultz APRN-STEAM TABLE WORKER Primary Care Provider Encounter Details Date Type Department Care Team (Late st Contact Info) Description 02/16/2024 Orders Only [facility] Internal Medicine - Family Medicine [address] [place] [address] Ref Prov, [place] [address] Social History Tobacco Use Types Packs/Day Years [...] on filedocumented in this encounter Care Teams Director Compensation Relationship Specialty Start Date End Date Mary Alice Schultz APRN-CNP [address] [place] [address] PCP - General Family Medicine 08/27/17 documented as of this encounter
--- OUTSIDE RECORDS SUMMARY | 2025-01-17 07:29 | XMS_ITS | Encounter Summary ---
[facility] Address [id number] [address] [place] [address] Care Team Providers Care Reservations And Ticketing Agent Name Role Phone Mary Alice Schultz Primary Care Provider Reason for Visit * Reason Onset Date Comments Med Refill 02/01/2024 Encounter Details Date Type Department Care Team (Late st Contact Info) Description 02/01/2024 Refill [facility] Internal Medicine - Family Medicine [address] [place] [address] Maria Teresa Torres CMA Social History Tobacco [...] on filedocumented in this encounter Care Teams Reservations And Ticketing Agent Relationship Specialty Start Date End Date Mary Alice Schultz APRN-CNP [address] [place] [address] PCP - General Family Medicine 08/27/17 documented as of this encounter
--- OUTSIDE RECORDS SUMMARY | 2025-01-17 07:29 | XMS_ITS | Encounter Summary ---
Author Organization [facility] Address [address] [place] [address] Care Team Providers Care Bottom Cager Name Role Phone Shaikh RICCI Ram Primary Care Provider [phone] Bakari Bhat MD Primary Care Provider [phone] Cathleen Malik FENCE SUPERVISOR Unavailable [phone] Faisal Cr LPC Unavailable Unavailable Reason for Visit * Reason Comments Med Refill Encounter Details Date Type Department Care Team (Late st Contact Info) Description 09/04/2023 Refill [facility] [address] [place] [phone] Shaikh Ram MD [address] [place] [address] Other specified anxiety disorders Social History Tobacco [...] [facility] [address] [place] [address] Onelia Simon NP [address] [place] [address] 01/17/2026 5:00 PM EDT Office Visit [facility] [address] [place] [address] Onelia Simon NP [address] [place] [address] documented as of this encounter Visit Diagnoses Diagnosis Other specified anxiety disorders documented in this encounter Additional Health Concerns Assessment Noted Time PHQ-9 Depression Total Score: 15 024 3:36 PM EST documented as of this encounter Care Teams Bottom Cager Relationship Specialty Start Date End Date Shaikh Ram MD [address] [place] [phone] PCP - General Internal Medicine 08/26/23 02/28/24 Bakari Bhat MD [address] [place] [address] PCP - General Family Medicine 02/29/24 Cathleen Malik NP [address] [place] [phone] Nurse Practitioner Family Medicine 02/29/24 Faisal Cr LPC Fittings Tightener Behavioral Health 08/31/24 documented as of this encounter
--- OUTSIDE RECORDS SUMMARY | 2025-01-17 07:29 | XMS_ITS | Encounter Summary ---
Author Organization [facility] tem Address [id number] [address] [place] [address] Care Team Providers Care Pesticide Applicator Name Role Phone Mary Alice Schultz Primary Care Provider Encounter Details Date Type Department Care Team (Late st Contact Info) Description 09/10/2023 [facility] [address] [place] [address] Maria Teresa Torres CMA Social History Tobacco [...] on filedocumented in this encounter Care Teams Pesticide Applicator Relationship Specialty Start Date End Date Mary Alice Schultz APRN-CNP [address] [place] [address] PCP - General Family Medicine 08/27/17 documented as of this encounter
--- OUTSIDE RECORDS SUMMARY | 2025-01-17 07:29 | XMS_ITS | Encounter Summary ---
Author Organization [facility] Address [address] [place] [address] Care Team Providers Care Bookkeeper Receptionist Name Role Phone Bakari Bhat MD Primary Care Provider [phone] Cathleen Malik NP Unavailable [phone] Faisal Cr LPC Unavailable Unavailable Encounter Details Date Type Department Care Team (Late st Contact Info) Description 01/04/2025 Clinisync Result Encounter [facility] External Department Unsolicited Onelia Simon NP [address] [place] [address] Social History Tobacco Use Types Packs/Day Years [...] Visit [facility] [address] [place] [address] Onelia Simon NP [address] [place] [address] 01/17/2026 5:00 PM EDT Office Visit [facility] [address] [place] [address] Onelia Simon NP [address] [place] [address] documented as of this encounter Procedures Procedure Name Priority Date/Time Associated Diagnosis Comments CA ECHO DOPPLER COMPLETE 01/04/2025 6:00 PM EDT documented in this encounter Results * CA ECHO DOPPLER COMPLETE (01/04/2025 6:00 PM EDT) Anatomical Region Laterality Modality Other 01/04/2025 6:00 PM EDT Narrative 01/04/2025 6:02 [place] [address] Cardiology Report Signed Patient: SHANNON BOLAÑOS MR#: [id number] : 1955 Acct:[id number] Age/Sex: 69 / M ADM Date: 01/04/25 Loc: CARD Attending Dr: Onelia Simon NP Ordering Physician: Onelia Simon NP Date of Service: 01/04/25 Procedure(s): CA echo doppler complete Accession Number(s): [id number] cc: Onelia Simon NP Patient Name: SHANNON BOLAÑOS MR#: [id number] : 1955 Exam Date: 01/04/2025 Ordering Doctor: [...] Pressure: 57.37 ml, 57.37 ml Dictated by: Anjel Webb M.D. on 01/04/2025 at 17:53 Approved by: Anjel Webb M.D. on 01/04/2025 at 18:00 Dictated By: ANJEL WEBB Signed By: 01/04/25 1802 DD/ 1800 TD/TT: Junk Removal Specialist: Procedure Note Radiology, Radiologist, MD - 01/04/2025 [place] [address] Cardiology Report Signed Patient: SHANNON BOLAÑOS EMR#: [id number] : 1955cct:[id number] Age/Sex: 69 / MADM Date: 01/04/25 Loc: CARD Attending Dr: Onelia Simon NP Ordering Physician: Onelia Simon NP Date of Service: 01/04/25 Procedure(s): CA echo doppler complete Accession Number(s): [id number] cc: Onelia Simon NP Patient Name: SHANNON BOLAÑOS MR#: [id number] : 1955 Exam Date: 01/04/2025 Ordering Doctor: [...] Pressure: 57.37 ml, 57.37 ml Dictated by: Anjel Webb M.D. on 01/04/2025 at 17:53 Approved by: Anjel Webb M.D. on 01/04/2025 at 18:00 Dictated By: ANJEL WEBB Signed By:01/04/25 1802 DD/ 1800 TD/TT: Junk Removal Specialist: us Onelia Simon GENERAL FOUNDRY WORKER [facility] Final Result documented in this encounter Visit Diagnoses Not on filedocumented in this encounter Additional Health Concerns Assessment Noted Time PHQ-9 Depression Total Score: 15 08/27/ 024 3:36 PM EST documented as of this encounter Care Teams Bookkeeper Receptionist Relationship Specialty Start Date End Date Bakari Bhat MD [address] [place] [phone] PCP - General Family Medicine 02/29/24 Cathleen Malik NP [address] [place] [address] Nurse Practitioner Family Medicine 02/29/24 Faisal Cr LPC Multicut Line Operator Behavioral Health 08/31/24 documented as of this encounter
--- OUTSIDE RECORDS SUMMARY | 2025-01-17 07:29 | XMS_ITS | Encounter Summary ---
Author Organization [facility] Address [address] [place] [address] Care Team Providers Care Director Of Housing Name Role Phone Bakari Bhat MD Primary Care Provider [phone] Cathleen Malik NP Unavailable [phone] Faisal Cr LPC Unavailable Unavailable Encounter Details Date Type Department Care Team (Late st Contact Info) Description 01/05/2025 Refill [facility] [address] [place] [address] Onelia Simon NP [address] [place] [address] Vitamin D deficiency (Primary Dx); Hypercalcemia Social History Tobacco Use Types Packs/Day Years [...] 03/14/2025 2:00 PM EDT Office Visit [facility] [address] [place] [address] Onelia Simon NP [address] [place] [address] 01/17/2026 5:00 PM EDT Office Visit [facility] [address] [place] [address] Onelia Simon NP [address] [place] [address] Scheduled Orders Name Type Priority Associated Diagnoses Orde r Schedule Basic metabolic panel Lab Routine Vitamin D deficiency Hypercalcemia Expected: 03/07/2025 (Approximate), Expires: 01/05/2026 Vitamin D 25 hydroxy Lab Routine Vitamin D deficiency Hypercalcemia Expected: 03/07/2025 (Approximate), Expires: 01/05/2026 documented as of this encounter Visit Diagnoses Diagnosis Vitamin D deficiency- Primary Hypercalcemia documented in this encounter Additional Health Concerns Assessment Noted Time PHQ-9 Depression Total Score: 15 024 3:36 PM EST documented as of this encounter Care Teams Director Of Housing Relationship Specialty Start Date End Date Bakari Bhat MD [address] [place] [address] PCP - General Family Medicine 02/29/24 Cathleen Malik NP [address] [place] [address] Nurse Practitioner Family Medicine 02/29/24 Faisal Cr LPC [facility] 08/31/24 documented as of this encounter
--- OUTSIDE RECORDS SUMMARY | 2025-01-17 07:29 | XMS_ITS | Encounter Summary ---
Author Organization [facility] Address [id number] [address] [place] [address] Support Name Relationship Address Phone Matthew Bolaños Personal Relationship [address] [place] [address] Care Team Providers Care Pens And Pencils Repairer Name Role Phone Mary Alice Schultz Primary Care Provider Reason for Visit * Reason Onset Date Comments Med Refill 04/22/2023 Encounter Details Date Type Department Care Team (Late st Contact Info) Description 04/22/2023 Refill [facility] Internal Medicine - Family Medicine [address] [place] [address] Maria Teresa Torres CMA Social History Tobacco [...] on filedocumented in this encounter Care Teams Pens And Pencils Repairer Relationship Specialty Start Date End Date Mary Alice Schultz APRN-CNP [address] [place] [address] PCP - General Family Medicine 08/27/17 documented as of this encounter
--- OUTSIDE RECORDS SUMMARY | 2025-01-17 07:29 | XMS_ITS | Encounter Summary ---
Author Organization [facility] Address [address] [place] [address] Care Team Providers Care Glass Ribbon Machine Operator Assistant Name Role Phone Shaikh RICCI Ram Primary Care Provider [phone] Bakari Bhat MD Primary Care Provider Cathleen Malik NEGATIVE NOTCHER Unavailable [phone] Faisal Cr LPC Unavailable Unavailable Encounter Details Date Type Department Care Team (Late st Contact Info) Description 2023 Clinisync Result Encounter [facility] External Department Unsolicited Shaikh Ram MD [address] [place] [address] Social History Tobacco Use Types Packs/Day Years [...] Office Visit [facility] [address] [place] [address] Onelia Simon NP [address] [place] [address] 01/17/2026 5:00 PM EDT Office Visit [facility] [address] [place] [address] Onelia Simon NP [address] [place] [address] documented as of this encounter Procedures Procedure Name Priority Date/Time Associated Diagnosis Comments ECG 12-LEAD 2023 9:28 AM EST documented in this encounter Results * ECG 12-LEAD (2023 9:28 AM EST) Anatomical Region Laterality Modality Other 2023 9:28 AM EST Narrative 08/29/2023 7:11 AM EST The [address] [address] Electrocardiograph Report Signed Patient: RIGO BOLAÑOS MR#: [id number] : 1955 Acct:[id number] Age/Sex: 68 / M ADM Date: 08/28/23 Loc: CARD Attending Dr: Shaikh Leanna Holt Ordering Physician: Shaikh Yanet Ram Date of Service: 08/28/23 Procedure(s): ECG 12 lead Accession Number(s): [id number] cc: The [facility] Test Date: 2023 Pat Name: RIGO BOLAÑOS Department: Room: - Gender: Male Tamping Machine Operator Road Forms: : 1955 Requested By: SHAIKH LEANNA Order Number: [id number] Reading MD: JUAN MOMIN Measurements Intervals [place] Rate: 89 P: 51 OR: 159 QRS: 47 QRSD: 111 T: 47 [...] By: 08/29/23 0711 08/29/23710 DD/ 7 TD/TT: Change Consultant: Procedure Note Radiology, Radiologist, - 08/29/2023 [place] [address] Electrocardiograph Report Signed Patient: RIGO BOLAÑOS EMR#: [id number] : 1955cct:[id number] Age/Sex: 68 / MADM Date: 08/28/23 Loc: CARD Attending Dr: Shaikh Leanna Holt Ordering Physician: Shaikh Yanet Ram Date of Service: 08/28/23 Procedure(s): ECG 12 lead Accession Number(s): [id number] cc: The [facility] Test Date: 2023 Pat Name: RIGO BOLAÑOS Department: Room: - Gender: Male Tamping Machine Operator Road Forms: : 1955 Requested By: SHAIKH LEANNA Order Number: [id number] Reading MD: JUAN MOMIN Measurements Intervals [place] Rate: 89 P: 51 OR: 159 QRS: 47 QRSD: 111 T: 47 QT: 337 QTc: 411 Interpretive Statements SINUS RHYTHM LOW QRS VOLTAGE IN PRECORDIAL LEADS [QRS DEFLECTION < 1.0 mV IN CHESTLEADS] MODERATE INTRAVENTRICULAR CONDUCTION DELAY [110+ ms QRS DURATION] No previous ECG available for comparison Electronically Signed On 08-29-2023 7:11:01 EST by JUAN MOMIN Dictated By: Juan Momin D.O. Signed By:08/29/23 0711 08/29/23710 DD/ 7 TD/TT: Change Consultant: us Shaikh Leanna [facility] Final Result documented in this encounter Visit Diagnoses Not on filedocumented in this encounter Additional Health Concerns Assessment Noted Time PHQ-9 Depression Total Score: 15 08/27/ 024 3:36 PM EST documented as of this encounter Care Teams Glass Ribbon Machine Operator Assistant Relationship Specialty Start Date End Date Shaikh Ram MD [address] [place] [address] PCP - General Internal Medicine 08/26/23 02/28/24 Bakari Bhat MD [address] [place] [address] PCP - General Family Medicine 02/29/24 Cathleen Malik NP [address] [place] [address] Nurse Practitioner Family Medicine 02/29/24 Faisal Cr LPC Business Applications Analyst Behavioral Health 08/31/24 documented as of this encounter
--- OUTSIDE RECORDS SUMMARY | 2025-01-17 07:29 | XMS_ITS | Encounter Summary ---
Author Organization [facility] Address [id number] [address] [place] [address] Care Team Providers Care Retail Sales Representative Name Role Phone Mary Alice Schultz Primary Care Provider Reason for Visit * Reason Onset Date Comments Med Refill 02/01/2024 Encounter Details Date Type Department Care Team (Late st Contact Info) Description 02/01/2024 Refill [facility] Internal Medicine - Family Medicine [address] [place] [address] Maria Teresa Torres CMA Social History Tobacco [...] on filedocumented in this encounter Care Teams Retail Sales Representative Relationship Specialty Start Date End Date Mary Alice Schultz APRN-CNP [address] [place] [address] PCP - General Family Medicine 08/27/17 documented as of this encounter
--- OUTSIDE RECORDS SUMMARY | 2025-01-17 07:30 | XMS_ITS | Encounter Summary ---
Author Organization [facility] Address [address] [place] [address] Care Team Providers Care Oncology Admin Name Role Phone Bakari Bhat MD Primary Care Provider [phone] Cathleen Malik NP Unavailable [phone] Faisal Cr LPC Unavailable Unavailable Encounter Details Date Type Department Care Team (Late st Contact Info) Description 12/28/2024 [facility] [address] [place] [address] Onelia Simon NP [address] [place] [address] Hypercalcemia (Primary Dx) Social History Tobacco Use Types Packs/Day Years [...] 03/14/2025 2:00 PM EDT [facility] [address] [place] [address] Onelia Simon, ELVIA [address] [place] [address] 01/17/2026 5:00 PM EDT Office Visit [facility] [address] [place] [address] Onelia Simon NP [address] [place] [address] Scheduled Orders Name Type Priority Associated Diagnoses Orde r Schedule Vitamin D 25 hydroxy Lab Routine Hypercalcemia Expected: 12/28/2024 (Approximate), Expires: 12/28/2025 documented as of this encounter Visit Diagnoses Diagnosis Hypercalcemia- Primary documented in this encounter Additional Health Concerns Assessment Noted Time PHQ-9 Depression Total Score: 15 024 3:36 PM EST documented as of this encounter Care Teams Oncology Admin Relationship Specialty Start Date End Date Bakari Bhat MD [address] [place] [address] PCP - General Family Medicine 02/29/24 Cathleen Malik NP [address] [place] [address] Nurse Practitioner Family Medicine 02/29/24 Faisal Cr LPC Transportation Aide Behavioral Health 08/31/24 documented as of this encounter
--- OUTSIDE RECORDS SUMMARY | 2025-01-17 07:30 | XMS_ITS | Encounter Summary ---
Author Organization [facility] Address [address] [place] [address] Care Team Providers Care Pants Presser Name Role Phone Bakari Bhat MD Primary Care Provider [phone] Cathleen Malik NP Unavailable [phone] Faisal Cr LPC Unavailable Unavailable Encounter Details Date Type Department Care Team (Late st Contact Info) Description 03/25/[address] [facility] [address] [place] [address] Cathleen Malik NP Social History [...] Office Visit [facility] [address] [place] [address] Onelia Simon NP [address] [place] [address] 01/17/2026 5:00 PM EDT Office Visit [facility] [address] [place] [address] Onelia Simon, ELVIA [address] [place] [address] documented as of this encounter Visit Diagnoses Not on filedocumented in this encounter Additional Health Concerns Assessment Noted Time PHQ-9 Depression Total Score: 15 024 3:36 PM EST documented as of this encounter Care Teams Pants Presser Relationship Specialty Start Date End Date Bakari Bhat MD [address] [place] [address] PCP - General Family Medicine 02/29/24 Cathleen Malik NP [address] [place] [address] Nurse Practitioner Family Medicine 02/29/24 Faisal Cr LPC Operating Room Scheduler Behavioral Health 08/31/24 documented as of this encounter
--- OUTSIDE RECORDS SUMMARY | 2025-01-17 07:30 | XMS_ITS | Encounter Summary ---
Author Organization [facility] Address [address] [place] [address] Care Team Providers Care Washer Engineer Helper Name Role Phone Bakari Bhat MD Primary Care Provider [phone] Cathleen Malik DRIVER'S EDUCATION INSTRUCTOR Unavailable [phone] Faisal Cr LPC Unavailable Unavailable Encounter Details Date Type Department Care Team (Late st Contact Info) Description 12/27/2024 [facility] [address] [place] [address] Sotero Ham MD [address] [place] [address] Social History Tobacco Use Types Packs/Day Years [...] Office Visit [facility] [address] [place] [address] Onelia Simon NP [address] [place] [address] 01/17/2026 5:00 PM EDT Office Visit [facility] [address] [place] [address] Onelia Simon NP [address] [place] [address] documented as of this encounter Procedures Procedure Name Priority Date/Time Associated Diagnosis Comments XR LUMBAR SPINE 2-3 VIEWS Routine 12/27/2024 1:17 PM EDT documented in this encounter Results * XR lumbar spine 2 or 3 views (12/27/2024 1:17 PM EDT) Anatomical Region Laterality Modality Spine, L-spine Radiographic Renee ging us Sotero Ham MD IMG XR PROCEDURES Final Resul t documented in this encounter Visit Diagnoses Not on filedocumented in this encounter Additional Health Concerns Assessment Noted Time PHQ-9 Depression Total Score: 15 08/27/ 024 3:36 PM EST documented as of this encounter Care Teams Washer Engineer Helper Relationship Specialty Start Date End Date Bakari Bhat MD [address] [place] [address] PCP - General Family Medicine 02/29/24 Cathleen Malik NP [address] [place] [address] Nurse Practitioner Family Medicine 02/29/24 Faisal Cr LPC Software Systems Engineer Behavioral Health 08/31/24 documented as of this encounter
--- OUTSIDE RECORDS SUMMARY | 2025-01-17 07:30 | XMS_ITS | Encounter Summary ---
Author Organization [facility] Address [address] [place] [address] Care Team Providers Care Dry Placer Machine Operator Name Role Phone Shaikh RICCI Ram Primary Care Provider Shaikh RICCI Ram Primary Care Provider Bakari Bhat MD Primary Care Provider Cathleen Malik ADJUNCT INSTRUCTOR CHEMISTRY Unavailable [phone] Faisal Cr LPC Unavailable Unavailable Encounter Details Date Type Department Care Team (Late st Contact Info) Description 06/23/2023 Orders Only [facility] [address] [place] [address] Shaikh Ram MD [address] [place] [address] Social History Tobacco Use Types Packs/Day Years [...] Visit [facility] [address] [place] [address] Onelia Simon NP [address] [place] [address] 01/17/2026 5:00 PM EDT Office Visit [facility] [address] [place] [address] Onelia Simon NP [address] [place] [address] documented as of this encounter Visit Diagnoses Not on filedocumented in this encounter Care Teams Dry Placer Machine Operator Relationship Specialty Start Date End Date Shaikh Ram MD PCP - General Internal Medicine 07/27/22 08/25/23 Shaikh Ram MD [address] [place] [address] PCP - General Internal Medicine 08/26/23 02/28/24 Bakari Bhat MD [address] [place] [address] PCP - General Family Medicine 02/29/24 Cathleen Malik NP [address] [place] [address] Nurse Practitioner Family Medicine 02/29/24 Faisal Cr LPC Receptionist Secretary Behavioral Health 08/31/24 documented as of this encounter
--- OUTSIDE RECORDS SUMMARY | 2025-01-17 07:30 | XMS_ITS | Encounter Summary ---
Author Organization [facility] Address [address] [facility] [place] [address] Care Team Providers Care Night Custodian Name Role Phone Bakari Bhat MD Primary Care Provider [phone] Cathleen Malik NP Unavailable [phone] Faisal Cr LPC Unavailable Unavailable Encounter Details Date Type Department Care Team (Late st Contact Info) Description 01/11/2025 Bamboo flowsheet [facility] [address] [place] [address] Onelia Simon NP [address] [place] [address] Social History Tobacco Use Types [...] on file documented as of this encounter Functional Status documented as of this encounter Plan of Treatment Upcoming Encounters Date Type Department Care Team (Late st Contact Info) Description 03/14/2025 2:00 PM EDT Office Visit [facility] [address] [place] [address] Onelia Simon NP [address] [place] [address] 01/17/2026 5:00 PM EDT Office Visit [facility] [address] [place] [address] Onelia Simon NP [address] [place] [address] documented as of this encounter Visit Diagnoses Not on filedocumented in this encounter Additional Health Concerns Assessment Noted Time PHQ-9 Depression Total Score: 15 024 3:36 PM EST documented as of this encounter Care Teams Night Custodian Relationship Specialty Start Date End Date Bakari Bhat MD [address] [place] [address] PCP - General Family Medicine 02/29/24 Cathleen Malik NP [address] [place] [address] Nurse Practitioner Family Medicine 02/29/24 Faisal Cr LPC Public Health Clinical Nurse Specialist Behavioral Health 08/31/24 documented as of this encounter
--- OUTSIDE RECORDS SUMMARY | 2025-01-17 07:30 | XMS_ITS | Encounter Summary ---
Author Organization [facility] Address [address] [place] [address] Care Team Providers Care Hardware Trainer Name Role Phone Shaikh RICCI Ram Primary Care Provider [phone] Bakari Bhat MD Primary Care Provider [phone] Cathleen Malik THIRD SHIFT LIEUTENANT Unavailable [phone] Faisal Cr LPC Unavailable Unavailable Encounter Details Date Type Department Care Team (Late st Contact Info) Description 10/08/2023 Clinisync Result Encounter [facility] External Department Unsolicited Shaikh Ram MD [address] [place] [address] Social History Tobacco Use Types Packs/Day Years [...] Office Visit [facility] [address] [place] [address] Onelia Simon NP [address] [place] [address] 01/17/2026 5:00 PM EDT Office Visit [facility] [address] [place] [address] Oenlia Simon, ELVIA [address] [place] [address] documented as of this encounter Procedures Procedure Name Priority Date/Time Associated Diagnosis Comments NM GABI PERF SPECT REST STR 10/08/2023 9:32 AM EDT documented in this encounter Results * NM GABI PERF SPECT REST STR (10/08/2023 9:32 AM EDT) Anatomical Region Laterality Modality Other 10/08/2023 9:32 AM EDT Narrative 10/08/2023 9:33 [place] [address] Nuclear Medicine Report Signed Patient: RIGO BOLAÑOS MR#: [id number] : 1955 Acct:[id number] Age/Sex: 68 / M ADM Date: 10/05/23 Loc: NM Attending Dr: Shaikh Leanna Holt Ordering Physician: Shaikh Yanet Ram Date of Service: 10/05/23 Procedure(s): NM gabi perf SPECT rest str Accession Number(s): [id number] cc: Shaikh Yanet Ram Patient Name: RIGO BOLAÑOS MR#: [id number] : 1955 Exam Date: 10/05/2023 Ordering Doctor: [...] M.D. Signed By: 10/08/23 0933 DD/ TD/TT: Lead Security Officer: Procedure Note Radiology, Radiologist, MD - 10/08/2023 [place] [address] Nuclear Medicine Report Signed Patient: RIGO BOLAÑOS EMR#: [id number] : 1955cct:[id number] Age/Sex: 68 / MADM Date: 10/05/23 Loc: NM Attending Dr: Shaikh Leanna Holt Ordering Physician: Shaikh Yanet Ram Date of Service: 10/05/23 Procedure(s): NM gabi perf SPECT rest str Accession Number(s): [id number] cc: Shaikh Yanet Ram Patient Name: RIGO BOLAÑOS MR#: [id number] : 1955 Exam Date: 10/05/2023 Ordering Doctor: [...] M.D. Signed By:10/08/23 0933 DD/ 0932 TD/TT: Lead Security Officer: us Shaikh Leanna [facility] Final Result documented in this encounter Visit Diagnoses Not on filedocumented in this encounter Additional Health Concerns Assessment Noted Time PHQ-9 Depression Total Score: 15 024 3:36 PM EST documented as of this encounter Care Teams Hardware Trainer Relationship Specialty Start Date End Date Shaikh Ram MD [address] [place] [address] PCP - General Internal Medicine 08/26/23 02/28/24 Bakari Bhat MD [address] [place] [address] PCP - General Family Medicine 02/29/24 Cathleen Malik NP [address] [place] [address] Nurse Practitioner Family Medicine 02/29/24 Faisal Cr LPC Shoe Puller Behavioral Health 08/31/24 documented as of this encounter
--- NOTE | 2025-01-17 07:39 | CT_ITS ---
The [address] [address] Patient Name: SHANNON DANIELS MRN: [id number] date: 1955 Sex: M Assigned Patient Location: CT Current Patient Location: CT Accession/Order Number: [id number] Exam Date: 01/17/2025 09:11 Report Date: 01/17/2025 09:19 At the request of: STEWART FLYNN NP Procedure: CT chest w con CT CHEST WITH INTRAVENOUS CONTRAST: CLINICAL HISTORY: Dyspnea On Exertion. Prior history of tobacco use. COMPARISON: None TECHNIQUE: Spiral images were obtained through the chest following intravenous administration of 100 mL of Omnipaque 300. Images were reviewed using both narrow and wide window settings. This CT exam was performed using one or more following dose reduction techniques: Automated exposure control, adjustment of the mA and/or kV according to patient size, or use of iterative reconstruction technique. FINDINGS: The heart is top normal in size. There is no pericardial effusion. Minor coronary disease is noted. The ascending aorta is mildly ectatic. No dissection is seen. There is no mediastinal or hilar lymphadenopathy. A hypodense right thyroid nodule is visualized along with a couple calcifications. There is dextroscoliotic curvature as well as well as degenerative changes at the spine. Minor dependent right basilar atelectasis is noted. There is no consolidation, pleural effusion or discrete soft tissue nodules. No pneumothorax is seen. Limited cuts through the upper abdomen show fatty infiltration of the liver. There is a 3.6 cm left adrenal nodule. CT/CT chest w con IMPRESSION: NO ACUTE INTRATHORACIC FINDINGS. INCIDENTAL RIGHT THYROID AND LEFT ADRENAL NODULES. Impression dictated by: Krystal Maurice M.D. 01/17/2025 9:19 AM Dictation Location: [place] [address] Electronically authenticated by: [id number] Y Date: 01/17/2025 09:19
[2025-01-17 07:40] LABS: Hemoglobin 15.3 g/dL (14.0-18.0)
[2025-01-17] MEDS: ALBUTEROL SULFATE 2.5 MG/3 ML VIAL NEB IH (08:57)
== END 2025-01-17 07:27 | disposition home or self-care (01) ==
LOC: CT 07:26
PROVIDERS: PCP Nurse Practitioner; Visit Provider Nurse Practitioner
DX: R06.09 Other forms of dyspnea (principal)
CPT/HCPCS: 36415; 71260; 85018; 94060; 94726; 94729; Q9967

== ENCOUNTER 2025-01-20 07:39 | Outpatient (OUT) | payer MEDICARE, SELFPAY ==
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
--- OUTSIDE RECORDS SUMMARY | 2025-01-20 07:41 | XMS_ITS | Encounter Summary ---
Author Organization [facility] Address [address] [facility] [place] [address] Care Team Providers Care Automotive Sales Manager Name Role Phone Bakari Bhat MD Primary Care Provider Cathleen Malik NP Unavailable [phone] Faisal Cr LPC Unavailable Unavailable Encounter Details Date Type Department Care Team (Late st Contact Info) Description 01/17/2025 Clinisync Result Encounter [facility] External Department Unsolicited Onelia Simon NP [address] [place] [address] Social History Tobacco Use Types Packs/Day Years [...] Visit [facility] [address] [place] [address] Onelia Simon NP [address] [place] [address] 01/17/2026 5:00 PM EDT Office Visit [facility] [address] [place] [address] Onelia Simon, ELVIA [address] [place] [address] documented as of this encounter Procedures Procedure Name Priority Date/Time Associated Diagnosis Comments RT PULMONARY FUNCTION TEST 01/17/2025 8:11 AM EDT documented in this encounter Results * RT PULMONARY FUNCTION TEST (01/17/2025 8:11 AM EDT) Anatomical Region Laterality Modality Other 01/17/2025 8:11 AM EDT Narrative 01/19/2025 3:42 PM EDT [address] [address] Respiratory Report Signed Patient: SHANNON BOLAÑOS MR#: [id number] : 1955 Acct:[id number] Age/Sex: 69 / M ADM Date: 01/17/25 Loc: CT Attending Dr: Onelia Simon NP Ordering Physician: Onelia Simon NP Date of Service: 01/17/25 Procedure(s): RT pulmonary function test Accession Number(s): [id number] cc: [facility] Test Date: 2025-01-17 Pat Name: SHANNON BOLAÑOS Department: Room: - Gender: Male Electrical Tech/Project Manager: Clementine Moss RRT : 1955 Requested By: ONELIA SIMON Order Number: [id number] Xiomara MD: Ishan Hurst Interpretive Statements Pulmonary function testing was completed according to ATS criteria. Findings were considered accurate and reproducible. Both pre- and post-bronchodilator values utilized for spirometry. Spirometry (based on pre-bronchodilator values): -FEV1/FVC: Normal @ 82% -FEV1: Reduced @ 68% -FVC: Moderately reduced @ 61% -There is no significant bronchodilator response. Lung volumes by plethysmography (based on pre-bronchodilator values): -RV: Normal @ 103% -TLC: Mildly reduced @ 75% Diffusion capacity: -DLCO: Normal @ 92% when corrected for Hb 15.3g/dL Impressions: -Spirometry shows a moderate restriction pattern which is confirmed with a reduced TLC. There is no diffusion impairment. This pattern can be seen in restrictive conditions including neuromuscular disease, pleural disorders, and obesity. Clinical correlation required. Electronically Signed On 01-19-2025 15:42:13 EDT by Ishan Hurst Dictated By: Ishan Hurst D.O. Signed By: 01/19/25 1542 DD/ 0811 TD/TT: Billet Checker: Procedure Note Radiology, Radiologist, MD - 01/19/2025 [place] [address] Respiratory Report Signed Patient: SHANNON BOLAÑOS EMR#: [id number] : 1955cct:[id number] Age/Sex: 69 / MADM Date: 01/17/25 Loc: CT Attending Dr: Onelia Simon MEDICAL PHYSICS TEACHER Ordering Physician: Onelia Simon NP Date of Service: 01/17/25 Procedure(s): RT pulmonary function test Accession Number(s): [id number] cc: [facility] Test Date: 2025-01-17 Pat Name: SHANNON BOLAÑOS Department: Room: - Gender: Male Electrical Tech/Project Manager: Clementine Moss RRT : 1955 Requested By: ONELIA SIMON Order Number: [id number] Reading MD: Ishan Hurst Interpretive Statements Pulmonary function testing was completed according to ATS criteria.Findings were considered accurate and reproducible. Both pre- andpost-bronchodilator values utilized for spirometry. Spirometry (based on pre-bronchodilator values): -FEV1/FVC: Normal @ 82% -FEV1: Reduced @ 68% -FVC: Moderately reduced @ 61% -There is no significant bronchodilator response. Lung volumes by plethysmography (based on pre-bronchodilator values): -RV: Normal @ 103% -TLC: Mildly reduced @ 75% Diffusion capacity: -DLCO: Normal @ 92% when corrected for Hb 15.3g/dL Impressions: -Spirometry shows a moderate restriction pattern which is confirmed with a reduced TLC. There is no diffusion impairment. This pattern can be seenin restrictive conditions including neuromuscular disease, pleural disorders, and obesity. Clinical correlation required. Electronically Signed On 01-19-2025 15:42:13 EDT by Ishan Hurst Dictated By: Ishan Hurst D.O. Signed By:01/19/25 1542 DD/ 0811 TD/TT: Billet Checker: us Onelia Simon NP [facility] Final Result documented in this encounter Visit Diagnoses Not on filedocumented in this encounter Additional Health Concerns Assessment Noted Time PHQ-9 Depression Total Score: 15 024 3:36 PM EST documented as of this encounter Care Teams Automotive Sales Manager Relationship Specialty Start Date End Date Bakari Bhat MD [address] [place] [address] PCP - General Family Medicine 02/29/24 Cathleen Malik NP [address] [place] [address] Nurse Practitioner Family Medicine 02/29/24 Faisal Cr LPC Medical Office Assistant Behavioral Health 08/31/24 documented as of this encounter
--- OUTSIDE RECORDS SUMMARY | 2025-01-20 07:41 | XMS_ITS | Encounter Summary ---
Author Organization [facility] Address [address] [place] [address] Care Team Providers Care Cigar Tobacco Rehandler Name Role Phone Bakari Bhat MD Primary Care Provider [phone] Cathleen Malik NP Unavailable [phone] Faisal Cr LPC Unavailable Unavailable Encounter Details Date Type Department Care Team (Late st Contact Info) Description 06/20/2024 Abstract [facility] [address] [place] [address] Cathleen Malik NP Social History [...] Office Visit [facility] [address] [place] [address] Onelia Simon NP [address] [place] [address] 01/17/2026 5:00 PM EDT Office Visit [facility] [address] [place] [address] Onelia Simon, ELVIA [address] [place] [address] documented as of this encounter Visit Diagnoses Not on filedocumented in this encounter Additional Health Concerns Assessment Noted Time PHQ-9 Depression Total Score: 15 024 3:36 PM EST documented as of this encounter Care Teams Cigar Tobacco Rehandler Relationship Specialty Start Date End Date Bakari Bhat MD [address] [place] [address] PCP - General Family Medicine 02/29/24 Cathleen Malik NP [address] [place] [address] Nurse Practitioner Family Medicine 02/29/24 Faisal Cr LPC Roofing Supervisor Behavioral Health 08/31/24 documented as of this encounter
--- OUTSIDE RECORDS SUMMARY | 2025-01-20 07:41 | XMS_ITS | Encounter Summary ---
Author Organization [facility] Address [address] [place] [address] Care Team Providers Care Guest Attendant Name Role Phone Bakari Bhat MD Primary Care Provider [phone] Cathleen Malik NP Unavailable [phone] Faisal Cr LPC Unavailable Unavailable Reason for Referral * Imaging (Routine) - Authorized Specialty Diagnoses / Procedures Referred By Contac t Referred To Contact Radiology Diagnoses Adrenal nodule (HCC) Procedures CT abdomen w and wo IV contrast Onelia Simon NP [address] [place] [address] Phone: tel: fax: [facility] [address] [place] [address] Referral ID Status Reason Start Date Expiration Date V isits Requested Visits Authorized [id number] Authorized 01/17/2025 07/16/2025 1 1 Encounter Details Date Type Department Care Team (Late st Contact Info) Description 01/17/2025 Orders Only [facility] [address] [place] [address] Onelia Simon NP [address] [place] [address] Thyroid nodule (Primary Dx); Adrenal nodule (HCC) Social History Tobacco Use Types Packs/Day Years [...] Visit [facility] [address] [place] [address] Onelia Simon NP [address] [place] [address] 01/17/2026 5:00 PM EDT [facility] [address] [place] [address] Onelia Simon NP [address] [place] [address] Scheduled Orders Name Type Priority Associated Diagnoses Orde r Schedule US thyroid Imaging Routine Thyroid nodule Expected: 01/17/2025 (Approximate), Expires: 01/17/2026 CT abdomen w and wo IV contrast Imaging Routine Adrenal nodule (HCC) Expected: 01/17/2025, Expires: 01/17/2026 documented as of this encounter Visit Diagnoses Diagnosis Thyroid nodule- Primary Nontoxic uninodular goiter Adrenal nodule (HCC) Benign neoplasm of adrenal gland documented in this encounter Additional Health Concerns Assessment Noted Time PHQ-9 Depression Total Score: 15 024 3:36 PM EST documented as of this encounter Care Teams Guest Attendant Relationship Specialty Start Date End Date Bakari Bhat MD [address] [place] [address] PCP - General Family Medicine 02/29/24 Cathleen Malik NP [address] [place] [address] Nurse Practitioner Family Medicine 02/29/24 Faisal Cr LPC Business Analytics Intern Behavioral Health 08/31/24 documented as of this encounter
--- OUTSIDE RECORDS SUMMARY | 2025-01-20 07:41 | XMS_ITS | Encounter Summary ---
Author Organization [facility] Address [address] [place] [address] Care Team Providers Care Treasury Director Name Role Phone Bakari Bhat MD Primary Care Provider [phone] Cathleen Malik NP Unavailable [phone] Faisal Cr LPC Unavailable Unavailable Encounter Details Date Type Department Care Team (Late st Contact Info) Description 01/19/2025 Abstract [facility] [address] [place] [address] Onelia Simon NP [address] [place] [address] Social History Tobacco Use Types Packs/Day Years [...] 2:00 PM EDT Office Visit [facility] [address] [place] [address] Onelia Simon NP [address] [place] [address] 01/17/2026 5:00 PM EDT Office Visit [facility] [address] [place] [address] Onelia Simon NP [address] [place] [address] documented as of this encounter Visit Diagnoses Not on filedocumented in this encounter Additional Health Concerns Assessment Noted Time PHQ-9 Depression Total Score: 15 024 3:36 PM EST documented as of this encounter Care Teams Treasury Director Relationship Specialty Start Date End Date Bakari Bhat MD [address] [place] [address] PCP - General Family Medicine 02/29/24 Cathleen Malik NP [address] [place] [address] Nurse Practitioner Family Medicine 02/29/24 Faisal Cr LPC Pick Up Worker Behavioral Health 08/31/24 documented as of this encounter
--- OUTSIDE RECORDS SUMMARY | 2025-01-20 07:41 | XMS_ITS | Encounter Summary ---
Author Organization [facility] Address [address] [facility] [place] [address] Care Team Providers Care Roofer Name Role Phone Bakari Bhat MD Primary Care Provider [phone] Cathleen Malik NP Unavailable [phone] Faisal Cr LPC Unavailable Unavailable Encounter Details Date Type Department Care Team (Late st Contact Info) Description 01/17/2025 Clinisync Result Encounter [facility] External Department Unsolicited Onelia Simon NP [address] [place] [address] Social History Tobacco Use Types Packs/Day Years [...] Visit [facility] [address] [place] [address] Onelia Simon NP [address] [place] [address] 01/17/2026 5:00 PM EDT Office Visit [facility] [address] [place] [address] Onelia Simon NP [address] [place] [address] documented as of this encounter Procedures Procedure Name Priority Date/Time Associated Diagnosis Comments CT CHEST W CONTRAST 01/17/2025 9 :19 AM EDT documented in this encounter Results * CT CHEST W CONTRAST (01/17/2025 9:19 AM EDT) Anatomical Region Laterality Modality Other 01/17/2025 9:1 9 AM EDT Narrative 01/17/2025 9:21 [place] [address] CT Scan Report Signed Patient: SHANNON BOLAÑOS MR#: [id number] : 1955 Acct:[id number] Age/Sex: 69 / M ADM Date: 01/17/25 Loc: CT Attending Dr: Onelia Simon NP Ordering Physician: Onelia Simon NP Date of Service: 01/17/25 Procedure(s): CT chest w con Accession Number(s): [id number] cc: Onelia Simon NP The [address] [id number] Patient Name: SHANNON BOLAÑOS MRN: [id number]:[id number] date: 1955 Sex: M Assigned Patient Location: CT Current Patient Location: CT Accession/Order Number: [id number] Exam Date: 01/17/2025 09:11 Report Date: 01/17/2025 09:19 At the request of: ONELIA SIMON NP Procedure: CT chest w con CT CHEST WITH INTRAVENOUS CONTRAST: CLINICAL HISTORY: Dyspnea On Exertion. Prior history of tobacco use. COMPARISON: None TECHNIQUE: Spiral images were obtained through the chest following intravenous administration of 100 mL of Omnipaque 300. Images were reviewed using both narrow and wide window settings. This CT exam was performed using one or more following dose reduction techniques: Automated exposure control, adjustment of the mA and/or kV according to patient size, or use of iterative reconstruction technique. FINDINGS: The heart is top normal in size. There is no pericardial effusion. Minor coronary disease is noted. The ascending aorta is mildly ectatic. No dissection is seen. There is no mediastinal or hilar lymphadenopathy. A hypodense right thyroid nodule is visualized along with a couple calcifications. There is dextroscoliotic curvature as well as well as degenerative changes at the spine. Minor dependent right basilar atelectasis is noted. There is no consolidation, pleural effusion or discrete soft tissue nodules. No pneumothorax is seen. Limited cuts through the upper abdomen show fatty infiltration of the liver. There is a 3.6 cm left adrenal nodule. CT/CT chest w con IMPRESSION: NO ACUTE INTRATHORACIC FINDINGS. INCIDENTAL RIGHT THYROID AND LEFT ADRENAL NODULES. Impression dictated by: Krystal Maurice M.D. 01/17/2025 9:19 AM Dictation Location: [place] [address] Electronically authenticated by: [id number] Y Date: 01/17/2025 09:19 Dictated By: Krystal Maurice M.D. Signed By: 01/17/25920 DD/ 8 TD/TT: Mechanical Laboratory Technician: Procedure Note Radiology, Radiologist, MD - 01/17/2025 [place] [address] CT Scan Report Signed Patient: SHANNON BOLAÑOS EMR#: [id number] : 1955cct:[id number] Age/Sex: 69 / MADM Date: 01/17/25 Loc: CT Attending Dr: Onelia Simon NP Ordering Physician: Onelia Simon NP Date of Service: 01/17/25 Procedure(s): CT chest w con Accession Number(s): [id number] cc: Onelia Simon NP The [address] [address] Patient Name: SHANNON BOLAÑOS MRN: [facility]:[id number] date: 1955 Sex: M Assigned Patient Location: CT Current Patient Location: CT Accession/Order Number: [id number] Exam Date: 01/17/2025 09:11 Report Date: 01/17/2025 09:19 At the request of: ONELIA SIMON NP Procedure: CT chest w con CT CHEST WITH INTRAVENOUS CONTRAST: CLINICAL HISTORY: Dyspnea On Exertion. Prior history of tobacco use. COMPARISON: None TECHNIQUE: Spiral images were obtained through the chest following intravenous administration of 100 mL of Omnipaque 300. Images werereviewed using both narrow and wide window settings. This CT exam was performedusing one or more following dose reduction techniques: Automated exposurecontrol, adjustment of the mA and/or kV according to patient size, or use ofiterative reconstruction technique. FINDINGS: The heart is top normal in size. There is no pericardialeffusion. Minor coronary disease is noted. The ascending aorta is mildly ectatic.No dissection is seen. There is no mediastinal or hilar lymphadenopathy. A hypodense right thyroid nodule is visualized along with a couple calcifications. There is dextroscoliotic curvature as well as well as degenerative changes at the spine. Minor dependent right basilar atelectasis is noted. There is no consolidation, pleural effusion or discrete soft tissue nodules. No pneumothorax is seen. Limited cuts through the upper abdomen show fatty infiltration of theliver. There is a 3.6 cm left adrenal nodule. CT/CT chest w con IMPRESSION: NO ACUTE INTRATHORACIC FINDINGS. INCIDENTAL RIGHT THYROID AND LEFT ADRENAL NODULES. Impression dictated by: Krystal Maurice M.D. 01/17/2025 9:19 AM Dictation Location: [place] [address] Electronically authenticated by: [id number] Y Date: 9:19 Dictated By: Krystal Maurice M.D. Signed By:01/17/25920 DD/ 8 TD/TT: Mechanical Laboratory Technician: us Onelia Simon NP [facility] Final Result documented in this encounter Visit Diagnoses Not on filedocumented in this encounter Additional Health Concerns Assessment Noted Time PHQ-9 Depression Total Score: 15 024 3:36 PM EST documented as of this encounter Care Teams Roofer Relationship Specialty Start Date End Date Bakari Bhat MD [address] [place] [address] PCP - General Family Medicine 02/29/24 Cathleen Malik NP [address] [place] [address] Nurse Practitioner Family Medicine 02/29/24 Faisal Cr LPC Hospital Internship Behavioral Health 08/31/24 documented as of this encounter
--- OUTSIDE RECORDS SUMMARY | 2025-01-20 07:41 | XMS_ITS | Encounter Summary ---
Author Organization [facility] Address [address] [place] [address] Care Team Providers Care Television Presenter Name Role Phone Bakari Bhat MD Primary Care Provider [phone] Cathleen Malik NP Unavailable [phone] Faisal Cr LPC Unavailable Unavailable Encounter Details Date Type Department Care Team (Late st Contact Info) Description 12/28/2024 [facility] [address] [place] [address] Onelia Simon NP [address] [place] [address] Hypercalcemia (Primary Dx) Social History Tobacco Use [...] 03/14/2025 2:00 PM EDT [facility] [address] [place] [address] Onelia Simon, ELVIA [address] [place] [address] 01/17/2026 5:00 PM EDT Office Visit [facility] [address] [place] [address] Onelia Simon NP [address] [place] [address] Scheduled Orders Name Type Priority Associated Diagnoses Orde r Schedule Vitamin D 25 hydroxy Lab Routine Hypercalcemia Expected: 12/28/2024 (Approximate), Expires: 12/28/2025 documented as of this encounter Visit Diagnoses Diagnosis Hypercalcemia- Primary documented in this encounter Additional Health Concerns Assessment Noted Time PHQ-9 Depression Total Score: 15 024 3:36 PM EST documented as of this encounter Care Teams Television Presenter Relationship Specialty Start Date End Date Bakari Bhat MD [address] [place] [address] PCP - General Family Medicine 02/29/24 Cathleen Malik NP [address] [place] [address] Nurse Practitioner Family Medicine 02/29/24 Faisal Cr LPC [facility] Behavioral Health 08/31/24 documented as of this encounter
--- OUTSIDE RECORDS SUMMARY | 2025-01-20 07:41 | XMS_ITS | Encounter Summary ---
Author Organization [facility] Address [address] [place] [address] Care Team Providers Care Debone Processing Supervisor Name Role Phone Shaikh RICCI Ram Primary Care Provider [phone] Bakari Bhat MD Primary Care Provider Cathleen Malik VENEER STAPLER Unavailable Faisal Cr LPC Unavailable Unavailable Encounter Details Date Type Department Care Team (Late st Contact Info) Description 10/08/2023 Clinisync Result Encounter [facility] External Department Unsolicited Shaikh Ram MD [address] [place] [address] Social History Tobacco Use Types Packs/Day Years [...] Office Visit [facility] [address] [place] [address] Onelia Simon NP [address] [place] [place] [address] 01/17/2026 5:00 PM EDT Office Visit [facility] [address] [place] [address] Onelia Simon, ELVIA [address] [place] [address] documented as of this encounter Procedures Procedure Name Priority Date/Time Associated Diagnosis Comments NM GABI PERF SPECT REST STR 10/08/2023 9:32 AM EDT documented in this encounter Results * NM GABI PERF SPECT REST STR (10/08/2023 9:32 AM EDT) Anatomical Region Laterality Modality Other 10/08/2023 9:32 AM EDT Narrative 10/08/2023 9:33 [place] [address] Nuclear Medicine Report Signed Patient: RIGO BOLAÑOS MR#: [id number] : 1955 Acct:[id number] Age/Sex: 68 / M ADM Date: 10/05/23 Loc: [place] Attending Dr: Shaikh Leanna Holt Ordering Physician: Shaikh Yanet Ram Date of Service: 10/05/23 Procedure(s): NM gabi perf SPECT rest str Accession Number(s): [id number] cc: Shaikh Yanet Ram Patient Name: RIGO BOLAÑOS MR#: [id number] : 1955 Exam Date: 10/05/2023 Ordering Doctor: [...] M.D. Signed By: 10/08/23 0933 DD/ TD/TT: Pilot: Procedure Note Radiology, Radiologist, MD - 10/08/2023 [place] [address] Nuclear Medicine Report Signed Patient: RIGO BOLAÑOS EMR#: [id number] : 1955cct:[id number] Age/Sex: 68 / MADM Date: 10/05/23 Loc: [place] Attending Dr: Shaikh Leanna oHlt Ordering Physician: Shaikh Yanet Ram Date of Service: 10/05/23 Procedure(s): NM gabi perf SPECT rest str Accession Number(s): [id number] cc: Shaikh Yanet Ram Patient Name: RIGO BOLAÑOS MR#: [id number] : 1955 Exam Date: 10/05/2023 Ordering Doctor: [...] M.D. Signed By:10/08/23 0933 DD/ 0932 TD/TT: Pilot: us Shaikh Leanna WYNNE [facility] Final Result documented in this encounter Visit Diagnoses Not on filedocumented in this encounter Additional Health Concerns Assessment Noted Time PHQ-9 Depression Total Score: 15 024 3:36 PM EST documented as of this encounter Care Teams Debone Processing Supervisor Relationship Specialty Start Date End Date Shaikh Ram MD [address] [place] [address] PCP - General Internal Medicine 08/26/23 02/28/24 Bakari Bhat MD [address] [place] [address] PCP - General Family Medicine 02/29/24 Cathleen Malik NP [address] [place] [address] Nurse Practitioner Family Medicine 02/29/24 Faisal Cr LPC Attendance Secretary Behavioral Health 08/31/24 documented as of this encounter
--- OUTSIDE RECORDS SUMMARY | 2025-01-20 07:41 | XMS_ITS | Encounter Summary ---
Author Organization [facility] Address [address] [place] [address] Care Team Providers Care Note Teller Name Role Phone Shaikh RICCI Ram Primary Care Provider Shaikh RICCI Ram Primary Care Provider Bakari Bhat MD Primary Care Provider Cathleen Malik EMPLOYEE COMMUNICATIONS COORDINATOR Unavailable [phone] Faisal Cr LPC Unavailable Unavailable Encounter Details Date Type Department Care Team (Late st Contact Info) Description 06/23/2023 Orders Only [facility] [address] [place] [address] Shaikh Ram MD [address] [place] [address] Social History Tobacco Use Types Packs/Day Years [...] Visit [facility] [address] [place] [address] Onelia Simon NP [address] [place] [address] 01/17/2026 5:00 PM EDT Office Visit [facility] [address] [place] [address] Onelia Simon NP [address] [place] [address] documented as of this encounter Visit Diagnoses Not on filedocumented in this encounter Care Teams Note Teller Relationship Specialty Start Date End Date Shaikh Ram MD PCP - General Internal Medicine 07/27/22 08/25/23 Shaikh Ram MD [address] [place] [address] PCP - General Internal Medicine 08/26/23 02/28/24 Bakari Bhat MD [address] [place] [address] PCP - General Family Medicine 02/29/24 Cathleen Malik NP [address] [place] [address] Nurse Practitioner Family Medicine 02/29/24 Faisal Cr LPC Emergency Care Attendant Behavioral Health 08/31/24 documented as of this encounter
--- OUTSIDE RECORDS SUMMARY | 2025-01-20 07:41 | XMS_ITS | Encounter Summary ---
Author Organization [facility] Address [address] [facility] [place] [address] Care Team Providers Care Shipwright Supervisor Name Role Phone Bakari Bhat MD Primary Care Provider [phone] Cathleen Malik BAND NAILER Unavailable [phone] Faisal Cr LPC Unavailable Unavailable Encounter Details Date Type Department Care Team (Late st Contact Info) Description 05/05/2024 [facility] Only [facility] [address] [place] [address] Van Trinh MD [address] [address] [place] [address] Social History Tobacco Use Types Packs/Day Years [...] Office Visit [facility] [address] [place] [address] Onelia Simon NP [address] [place] [address] 01/17/2026 5:00 PM EDT Office Visit [facility] [address] [place] [address] Onelia Simon NP [address] [place] [address] documented as of this encounter Procedures Procedure [...] documented as of this encounter Care Teams Shipwright Supervisor Relationship Specialty Start Date End Date Bakari Bhat MD [address] [place] [address] PCP - General Family Medicine 02/29/24 Cathleen Malik NP [address] [place] [address] Nurse Practitioner Family Medicine 02/29/24 Faisal Cr LPC Supervisor Decorating Behavioral Health 08/31/24 documented as of this encounter
--- OUTSIDE RECORDS SUMMARY | 2025-01-20 07:41 | XMS_ITS | Encounter Summary ---
Author Organization [facility] Address [address] [place] [address] Care Team Providers Care Product Technology Scientist Name Role Phone Bakari Bhat MD Primary Care Provider [phone] Cathleen Malik NP Unavailable [phone] Faisal Cr LPC Unavailable Unavailable Encounter Details Date Type Department Care Team (Late st Contact Info) Description 03/25/[address] [facility] [address] [place] [address] Cathleen Malik NP Social History [...] Office Visit [facility] [address] [place] [address] Onelia Simon NP [address] [place] [address] 01/17/2026 5:00 PM EDT Office Visit [facility] [address] [place] [address] Onelia Simon, ELVIA [address] [place] [address] documented as of this encounter Visit Diagnoses Not on filedocumented in this encounter Additional Health Concerns Assessment Noted Time PHQ-9 Depression Total Score: 15 024 3:36 PM EST documented as of this encounter Care Teams Product Technology Scientist Relationship Specialty Start Date End Date Bakari Bhat MD [address] [place] [address] PCP - General Family Medicine 02/29/24 Cathleen Malik NP [address] [place] [address] Nurse Practitioner Family Medicine 02/29/24 Faisal Cr LPC Automotive Upholsterer Behavioral Health 08/31/24 documented as of this encounter
--- OUTSIDE RECORDS SUMMARY | 2025-01-20 07:41 | XMS_ITS | Encounter Summary ---
Author Organization [facility] Address [address] [place] [address] Care Team Providers Care Hatchery Attendant Name Role Phone Bakari Bhat MD Primary Care Provider [phone] Cathleen Malik RIG SUPERVISOR Unavailable [phone] Faisal Cr LPC Unavailable Unavailable Encounter Details Date Type Department Care Team (Late st Contact Info) Description 01/19/2025 Telephone [facility] [address] [place] [address] Onelia Simon NP [address] [place] [address] Social History Tobacco Use Types Packs/Day Years [...] encounter Miscellaneous Notes * Telephone Encounter - KVNG INMAN - 01/19/2025 1:05 PM EDT Pt left vm documented in this encounter Plan of Treatment Upcoming Encounters Date Type Department Care Team (Late st Contact Info) Description 03/14/2025 2:00 PM EDT Office Visit [facility] [address] [place] [address] Onelia Simon, ELVIA [address] [place] [address] 01/17/2026 5:00 PM EDT [facility] [address] [place] [address] Onelia Simon, ELVIA [address] [place] [address] documented as of this encounter Visit Diagnoses Not on filedocumented in this encounter Additional Health Concerns Assessment Noted Time PHQ-9 Depression Total Score: 15 024 3:36 PM EST documented as of this encounter Care Teams Hatchery Attendant Relationship Specialty Start Date End Date Bakari Bhat MD [address] [place] [address] PCP - General Family Medicine 02/29/24 Cathleen Malik NP [address] [place] [address] Nurse Practitioner Family Medicine 02/29/24 Faisal Cr LPC Budget Consultant Behavioral Health 08/31/24 documented as of this encounter
--- OUTSIDE RECORDS SUMMARY | 2025-01-20 07:41 | XMS_ITS | Clinical Summary ---
Author Organization [facility] Address [address] [place] [address] Care Team Providers Care Director Of Accounting Name Role Phone Bakari Bhat MD Primary Care Provider [phone] Cathleen Malik STITCHER SET UP OPERATOR AUTOMATIC Unavailable [phone] Faisal Cr LPC Unavailable Unavailable Allergies No [...] 90 tablet 11/01/19 25 Active Continuous Glucose Break And Load Operator (FreeStyle [place] 3 [place]) deviceIndications: Type 2 diabetes mellitus without complication, [...] Active Problems Problem Noted Date Diagnosed Date Thyroid nodule 01/17/2025 Adrenal nodule 01/17/2025 Medicare annual wellness visit, subsequent 01/11 Assessment [...] and has poor insight. He also saw blood bank laboratory technician before to help manage his meals, improve his diet. Tolerating meds w/o adverse effects Switch from trulicity to ozempic due to insurance prefera[ence. Check labs Assessment & Plan (08/27/2023 5:23 PM EST): Last A1C 7.1 06/18. On metformin and trulicity. Non compliant with diet and has poor insight. He also saw blood bank laboratory technician before to help manage his meals, improve [...] (08/27/2023): Added automatically from request for surgery [id number] Lumbar spondylosis 10/06/2018 Lumbosacral spondylosis without myelopathy 08/30 Overview (08/27/2023): Added automatically from request for surgery [id number] Major depression Assessment & Plan (12/14/2024 1:56 [...] Encounters Date Type Department Care Team Description 01/19/2025 Abstract [facility] [address] [place] [address] Onelia Simon NP 01/19/2025 Telephone [facility] [address] [place] [address] Onelia Simon NP 01/17/2025 Clinisync Result Encounter NOM[facility] External Department Unsolicited Onelia Simon NP 01/17/2025 Orders Only [facility] [address] [place] [address] Onelia Simon NP Thyroid nodule (Primary Dx); Adrenal nodule (HCC) 01/17/2025 Clinisync Result Encounter [facility]OMS External Department Unsolicited Onelia Simon NP 01/17/2025 Clinisync Result Encounter NOMS External Department Unsolicited Onelia Simon NP 01/11/2025 2:20 PM EDT Office Visit [facility] [address] [place] [address] Onelia Simon NP Medicare annual wellness visit, subsequent (Primary Dx); JEFF (obstructive sleep apnea); Primary hypertension ; Class 3 severe obesity due to excess calories without serious comorbidity with body mass index (BMI) of 50.0 to 59.9 in adult ([facility]); Type 2 diabetes mellitus without complication, without long-term current use of insulin ([facility]); IQBAL (dyspnea on exertion); Dyspnea on exertion 01/11/2025 Bamboo flowsheet [facility] [address] [place] [address] Onelia Simon NP 01/05/2025 Orders Only [facility] [address] [place] [address] Shaikh Ram MD 01/05/2025 Refill [facility] [address] [place] [address] Onelia Simon NP Vitamin D deficiency (Primary Dx); Hypercalcemia 01/04/2025 Clinisync Result Encounter NOMS External Department Unsolicited Onelia Simon NP 01/04/2025 Clinisync Result Encounter NOMS External Department Unsolicited Onelia Simon NP 12/28/2024 Orders Only [facility] [address] [place] [address] Onelia Simon NP Hypercalcemia (Primary Dx) 12/27/2024 Orders Only [facility] [address] [place] [address] Sotero Ham MD 12/27/2024 Clinisync Result Encounter NOMS External Department Unsolicited Onelia Simon NP 12/14/2024 1:20 PM EDT Office Visit [facility] [address] [place] [address] Onelia Simon NP Dyspnea on exertion (Primary Dx); JEFF (obstructive sleep apnea); Primary hypertension ; Class 3 severe obesity due to excess calories without serious comorbidity with body mass index (BMI) of 50.0 to 59.9 in adult ([facility]); Type 2 diabetes mellitus without complication, without long-term current use of insulin (HCC); Type 2 diabetes mellitus with polyneuropathy (HCC); Moderate episode of recurrent major depressive disorder (HCC); Bilateral lower extremity edema 12/14/2024 Bamboo flowsheet [facility] [address] [place] [address] Onelia Simon NP 11/01/2024 Refill [facility] [address] [facility] [place] [address] Bakari Bhat MD 10/31/2024 Refill [facility] [address] [facility] [place] [address] Bakari Bhat MD Lumbar spondylosis (Primary Dx); Type 2 diabetes mellitus without complication, without long-term current use of insulin (HCC); Essential (primary) hypertension ; Other specified anxiety disorders; Type 2 diabetes mellitus with polyneuropathy ([facility]); H/O seasonal allergies; Type 2 diabetes mellitus without complications ([facility]); Hyperlipidemia, unspecified from Last 3 Months Immunizations [...] 03/14/2025 2:00 PM EDT Office Visit [facility] [address] [place] [address] Onelia Simon, ELVIA [address] [place] [address] 01/17/2026 5:00 PM EDT Office Visit [facility] [address] [place] [address] Onelia Simon NP [address] [place] [address] Health Maintenance Due Date Last Done Comments [...] W CONTRAST 01/17/2025 9 :19 AM EDT RT PULMONARY FUNCTION TEST 01/17/2025 8:11 AM EDT ALL HEMOGLOBIN Routine 01/17/2025 7:35 AM EDT STRESS CARDIAC STRESS/LEXISCAN Routine 01/05/2025 2:00 PM [...] Recently Relevant to Health Maintenance Results * CT CHEST W CONTRAST (01/17/2025 9:19 AM EDT) Anatomical Region Laterality Modality Other 01/17/2025 9:19 AM EDT Narrative 01/17/2025 9:21 AM EDT The [address] [address] [address] Scan Report Signed Patient: RIGO BOLAÑOS MR#: [id number] : 1955 Acct:[id number] Age/Sex: 69 / M ADM Date: 01/17/25 Loc: CT Attending Dr: Onelia Simon NP Ordering Physician: Onelia Simon NP Date of Service: 01/17/25 Procedure(s): CT chest w con Accession Number(s): [id number] cc: Onelia Simon NP [address] [address] Patient Name: RIGO BOLAÑOS MRN: [id number] date: 1955 Sex: M Assigned Patient Location: CT Current Patient Location: CT Accession/Order Number: [id number] Exam Date: 01/17/2025 09:11 Report Date: 01/17/2025 [...] Maurice M.D. 01/17/2025 9:19 AM Dictation Location: [place] [address] Electronically authenticated by: [id number] Y Date: 01/17/2025 09:19 Dictated By: Krystal Maurice M.D. Signed By: 01/17/25920 DD/ 8 TD/TT: Skate Shop Attendant: Procedure Note Radiology, Radiologist, MD - 01/17/2025 [place] [address] CT Scan Report Signed Patient: RIGO BOLAÑOS EMR#: [id number] : 1955cct:[id number] Age/Sex: 69 / MADM Date: 01/17/25 Loc: CT Attending Dr: Onelia Simon NP Ordering Physician: Onelia Simon NP Date of Service: 01/17/25 Procedure(s): CT chest w con Accession Number(s): [id number] cc: Onelia Simon NP The [place] [id number] Patient Name: RIGO BOLAÑOS MRN: [facility]:[id number] date: 1955 Sex: M Assigned Patient Location: CT Current Patient Location: CT Accession/Order Number: [id number] Exam Date: 01/17/2025 09:11 Report Date: 01/17/2025 [...] Maurice M.D. 01/17/2025 9:19 AM Dictation Location: [place] [address] Electronically authenticated by: [id number] Y Date: 9:19 Dictated By: Krystal Maurice M.D. Signed By:01/17/2521 DD/ 8 TD/TT: Skate Shop Attendant: Onelia Simon NP [facility] Final Result * RT PULMONARY FUNCTION TEST (01/17/2025 8:11 AM EDT) Anatomical Region Laterality Modality Other 01/17/2025 8:11 AM EDT Narrative 01/19/2025 3:42 [place] [address] Respiratory Report Signed Patient: RIGO BOLAÑOS MR#: [id number] : 1955 Acct:[id number] Age/Sex: 69 / M ADM Date: 01/17/25 Loc: CT Attending Dr: Onelia Simon NP Ordering Physician: Onelia Simon NP Date of Service: 01/17/25 Procedure(s): RT pulmonary function test Accession Number(s): [id number] cc: The [facility] Test Date: 2025-01-17 Pat Name: RIGO BOLAÑOS Department: Room: - Gender: Male Maternal Child Nurse: Clementine Moss RRT : 1955 Requested By: ONELIA SIMON Order Number: [id number] Reading MD: Ishan Hurst Interpretive Statements Pulmonary [...] Signed By: 01/19/25 1542 DD/ 0811 TD/TT: Skate Shop Attendant: Procedure Note Radiology, Radiologist, MD - 01/19/2025 [place] [address] Respiratory Report Signed Patient: RIGO BOLAÑOS EMR#: [id number] : 1955cct:[id number] Age/Sex: 69 / MADM Date: 01/17/25 Loc: CT Attending Dr: Onelia Simon NP Ordering Physician: Onelia Simon NP Date of Service: 01/17/25 Procedure(s): RT pulmonary function test Accession Number(s): [id number] cc: The [facility] Test Date: 2025-01-17 Pat Name: RIGO BOLAÑOS Department: Room: - Gender: Male Maternal Child Nurse: Clementine Moss RRT : 1955 Requested By: ONELIA SIMON Order Number: [id number] Reading MD: Ishan Hurst Interpretive Statements Pulmonary [...] D.O. Signed By:01/19/25 1542 DD/ 0811 TD/TT: Skate Shop Attendant: us Onelia Simon NP [facility] Final Result * ALL HEMOGLOBIN (01/17/2025 7:35 AM EDT) [facility] HGB 15.3 14.0 - 18.0 g/dL [facility] 01/17/2025 7:35 AM EDT 01/17/2025 7:41 AM EDT Narrative [facility] - 01/17/2025 7:41 AM EDT us Onelia Simon NP [facility] Final Result [facility] * STRESS CARDIAC STRESS/LEXISCAN (01/05/2025 2:00 PM EDT) Anatomical Region Laterality Modality Radiographic Renee ging us Shaikh Leanna WYNNE IMG XR PROCEDURES Final Result * CA ECHO DOPPLER COMPLETE (01/04/2025 6:00 PM EDT) Anatomical Region Laterality Modality Other 01/04/2025 6:00 PM EDT Narrative 01/04/2025 6:02 PM EDT The [place] [id number] Cardiology Report Signed Patient: RIGO BOLAÑOS MR#: [id number] : 1955 Acct:[id number] Age/Sex: 69 / M ADM Date: 01/04/25 Loc: CARD Attending Dr: Onelia Simon NP Ordering Physician: Onelia Simon NP Date of Service: 01/04/25 Procedure(s): CA echo doppler complete Accession Number(s): [id number] cc: Onelia Simon NP Patient Name: RIGO BOLAÑOS MR#: [id number] : 1955 Exam Date: 01/04/2025 Ordering Doctor: [...] Dictated By: CANDICE FOWLER Signed By: 01/04/25 180 DD/ 1800 TD/TT: Skate Shop Attendant: Procedure Note Radiology, Radiologist, MD - 01/04/2025 The [place] [id number] Cardiology Report Signed Patient: RIGO BOLAÑOS EMR#: [id number] : 1955cct:[id number] Age/Sex: 69 / MADM Date: 01/04/25 Loc: CARD Attending Dr: Onelia Simon NP Ordering Physician: Onelia Simon NP Date of Service: 01/04/25 Procedure(s): CA echo doppler complete Accession Number(s): [id number] cc: Oenlia Simon NP Patient Name: RIGO BOLAÑOS MR#: [id number] : 1955 Exam Date: 01/04/2025 Ordering Doctor: [...] FOWLER Signed By:01/04/25 1802 DD/ 1800 TD/TT: Skate Shop Attendant: us Onelia Simon NP [facility] Final Result * TB VITAMIN D 25 [place] (01/04/2025 12:56 PM EDT) VITAMIN D 27.9 ng/mL TB Comment: <20 ng/mL Vit D deficient 20-<30 ng/mL Vit D insufficient 30-100 ng/mL Vit D sufficient >100 ng/mL Potential Toxicity 01/04/2025 12:5 6 PM EDT 01/04/2025 12:57 PM EDT Narrative [facility] - 01/04/2025 2:10 PM EDT us Onelia Simon STITCHER SET UP OPERATOR AUTOMATIC [facility] Final Result [facility] * XR lumbar spine 2 or 3 [...] 0.70 - 1.30 mg/dL TBH TBH EGFR-AF ZIMBABWEAN >60 >=60 mL/min/1.7 3m 2 TBH TBH EGFR-NON AF ZIMBABWEAN >60 >=60 mL/min/1.7 3m 2 TBH BUN CREATININE RATIO 18.8 TBH CALCIUM 10.2(H) 8.5 - 10.1 mg/dL [facility] 12/27/2024 11:5 0 AM EDT 12/27/2024 11:51 AM EDT Narrative [facility] - 12/27/2024 1:06 PM EDT us Onelia Simon NP [facility] Final Result [facility] * (ABNORMAL) POCT glycosylated hemoglobin (Hb A1C) docked device (12/14/2024 2:05 PM EDT) Hemoglobin A1C 7.0 Blood Venous blood specimen / Unknown 12/14/2024 2:05 PM EDT Onelia Simon STITCHER SET UP OPERATOR AUTOMATIC POINT OF CARE TEST ENTER/EDIT O RDERABLES Final Result * COLONOSCOPY DIAGNOSTIC (05/05/2024 8:38 AM EDT) Anatomical Region Laterality Modality Radiographic Renee ging Van Trinh MD IMG XR PROCEDURES Final Result from Last 3 Months or Most Recently Relevant to Health Maintenance Insurance [employer] MEDICARE Care Teams Director Of Accounting Relationship Specialty Start Date End Date Bakari Bhat MD [address] [place] [address] PCP - General Family Medicine 02/29/24 Cathleen Malik NP [address] [place] [address] Nurse Practitioner Family Medicine 02/29/24 Faisal Cr LPC Change Booth Attendant Behavioral Health 08/31/24
--- OUTSIDE RECORDS SUMMARY | 2025-01-20 07:41 | XMS_ITS | Encounter Summary ---
Author Organization [facility] Address [address] [place] [address] Care Team Providers Care Shipyard Helper Name Role Phone Bakari Bhat MD Primary Care Provider [phone] Cathleen Malik TRAFFIC REPORTER Unavailable [phone] Faisal Cr LPC Unavailable Unavailable Encounter Details Date Type Department Care Team (Late st Contact Info) Description 12/27/2024 [facility] [address] [place] [address] Sotero Ham MD [address] [place] [address] Social History Tobacco Use Types Packs/Day Years [...] Office Visit [facility] [address] [place] [address] Onelia Simon NP [address] [place] [address] 01/17/2026 5:00 PM EDT Office Visit [facility] [address] [place] [address] Onelia Simon NP [address] [place] [address] documented as of this encounter Procedures Procedure [...] documented as of this encounter Care Teams Shipyard Helper Relationship Specialty Start Date End Date Bakari Bhat MD [address] [place] [address] PCP - General Family Medicine 02/29/24 Cathleen Malik NP [address] [place] [address] Nurse Practitioner Family Medicine 02/29/24 Faisal Cr LPC Fall Internship Behavioral Health 08/31/24 documented as of this encounter
--- OUTSIDE RECORDS SUMMARY | 2025-01-20 07:41 | XMS_ITS | Encounter Summary ---
Author Organization [facility] Address [address] [facility] [place] [address] Care Team Providers Care Atlassian Administrator Name Role Phone Bakari Bhat MD Primary Care Provider [phone] Cathleen Malik NP Unavailable [phone] Faisal Cr LPC Unavailable Unavailable Encounter Details Date Type Department Care Team (Late st Contact Info) Description 01/17/2025 Clinisync Result Encounter NOM[facility] External Department Unsolicited Onelia Simon NP [address] [place] [address] Social History Tobacco Use Types Packs/Day Years [...] Visit [facility] [address] [place] [address] Onelia Simon NP [address] [place] [address] 01/17/2026 5:00 PM EDT Office Visit [facility] [address] [place] [address] Onelia Simon NP [address] [place] [address] documented as of this encounter Procedures Procedure Name Priority Date/Time Associated Diagnosis Comments ALL HEMOGLOBIN Routine 01/17/2025 7:35 AM EDT documented in this encounter Results * ALL HEMOGLOBIN (01/17/2025 7:35 AM EDT) [facility] HGB 15.3 14.0 - 18.0 g/dL TB 01/17/2025 7:35 AM EDT 01/17/2025 7:41 AM EDT Narrative [facility] - 01/17/2025 7:41 AM EDT us Onelia Simon NP [facility] Final Result [facility] documented in this encounter Visit Diagnoses Not on filedocumented in this encounter Additional Health Concerns Assessment Noted Time PHQ-9 Depression Total Score: 15 024 3:36 PM EST documented as of this encounter Care Teams Atlassian Administrator Relationship Specialty Start Date End Date Bakari Bhat MD [address] [place] [address] PCP - General Family Medicine 02/29/24 Cathleen Malik NP [address] [place] [address] Nurse Practitioner Family Medicine 02/29/24 Faisal Cr LPC Wet Inspector Optical Glass Behavioral Health 08/31/24 documented as of this encounter
--- OUTSIDE RECORDS SUMMARY | 2025-01-20 07:41 | XMS_ITS | Encounter Summary ---
Author Organization [facility] Address [address] [place] [address] Care Team Providers Care Stretch Box Tender Name Role Phone Shaikh RICCI Ram Primary Care Provider Shaikh RICCI Ram Primary Care Provider [phone] Bakari Bhat MD Primary Care Provider Cathleen Malik COPPER PLATE LITHOGRAPHER Unavailable Faisal Cr LPC Unavailable Unavailable Reason for Visit * Reason Comments Med Refill Encounter Details Date Type Department Care Team (Late st Contact Info) Description 08/12/2023 Refill [facility] [address] [place] [address] Shaikh Ram MD [address] [place] [address] Other specified anxiety disorders Social History Tobacco [...] [facility] [address] [place] [address] Onelia Simon, ELVIA [address] [place] [address] 01/17/2026 5:00 PM EDT Office Visit [facility] [address] [place] [address] Onelia Simon, ELVIA [address] [place] [address] documented as of this encounter Visit Diagnoses Diagnosis Other specified anxiety disorders documented in this encounter Care Teams Stretch Box Tender Relationship Specialty Start Date End Date Shaikh Ram MD PCP - General Internal Medicine 07/27/22 08/25/23 Shaikh Ram MD [address] [place] [address] PCP - General Internal Medicine 08/26/23 02/28/24 Bakari Bhat MD [address] [place] [address] PCP - General Family Medicine 02/29/24 Cathleen Malik NP [address] [place] [address] Nurse Practitioner Family Medicine 02/29/24 Faisal Cr LPC Facilities Operations Technician Behavioral Health 08/31/24 documented as of this encounter
--- OUTSIDE RECORDS SUMMARY | 2025-01-20 07:41 | XMS_ITS | Encounter Summary ---
Author Organization [facility] Address [address] [place] [address] Care Team Providers Care Audiovisual Equipment Operator Name Role Phone Bakari Bhat MD Primary Care Provider Cathleen Malik DIRECTOR PHARMACOVIGILANCE Unavailable [phone] Faisal Cr LPC Unavailable Unavailable Encounter Details Date Type Department Care Team (Late st Contact Info) Description 01/05/2025 [facility] [address] [place] [address] Shaikh Ram MD [address] [place] [address] Social History Tobacco Use Types Packs/Day Years [...] Office Visit [facility] [address] [place] [address] Onelia Simon NP [address] [place] [address] 01/17/2026 5:00 PM EDT Office Visit [facility] [address] [place] [address] Onelia Simon NP [address] [place] [address] documented as of this encounter Procedures Procedure [...] documented as of this encounter Care Teams Audiovisual Equipment Operator Relationship Specialty Start Date End Date Bakari Bhat MD [address] [place] [address] PCP - General Family Medicine 02/29/24 Cathleen Malik NP [address] [place] [address] Nurse Practitioner Family Medicine 02/29/24 Faisal Cr LPC Scale Operator Behavioral Health 08/31/24 documented as of this encounter
--- OUTSIDE RECORDS SUMMARY | 2025-01-20 07:41 | XMS_ITS | Encounter Summary ---
Author Organization [facility] Address [address] [place] [address] Care Team Providers Care City Treasurer Name Role Phone Bakari Bhat MD Primary Care Provider Cathleen Malik NP Unavailable [phone] Faisal Cr LPC Unavailable Unavailable Encounter Details Date Type Department Care Team (Late st Contact Info) Description 01/11/2025 Bamboo flowsheet [facility] [address] [place] [phone] Onelia Simon NP [address] [place] [address] Social History Tobacco Use Types [...] 03/14/2025 2:00 PM EDT Office Visit [facility] [address] [place] [phone] Onelia Simon NP [address] [place] [address] 01/17/2026 5:00 PM EDT Office Visit [facility] [address] [place] [phone] Onelia Simon NP [address] [place] [address] documented as of this encounter Visit Diagnoses Not on filedocumented in this encounter Additional Health Concerns Assessment Noted Time PHQ-9 Depression Total Score: 15 024 3:36 PM EST documented as of this encounter Care Teams City Treasurer Relationship Specialty Start Date End Date Bakari Bhat MD [address] [place] [phone] PCP - General Family Medicine 02/29/24 Cathleen Malik NP [address] [place] [phone] Nurse Practitioner Family Medicine 02/29/24 Faisal Cr LPC Field Map Editor Behavioral Health 08/31/24 documented as of this encounter
--- OUTSIDE RECORDS SUMMARY | 2025-01-20 07:41 | XMS_ITS | Encounter Summary ---
Author Organization [facility] Address [address] [place] [address] Care Team Providers Care Radio Despatcher Name Role Phone Shaikh RICCI Ram Primary Care Provider [phone] Bakari Bhat MD Primary Care Provider Cathleen Malik NON DESTRUCTIVE EVALUATION MANAGER Unavailable [phone] Faisal Cr LPC Unavailable Unavailable Encounter Details Date Type Department Care Team (Late st Contact Info) Description 2023 Clinisync Result Encounter [facility] External Department Unsolicited Shaikh Ram MD [address] [place] [address] Social History Tobacco Use Types Packs/Day Years [...] Office Visit [facility] [address] [place] [phone] Onelia Simon NP [address] [place] [address] 01/17/2026 5:00 PM EDT Office Visit [facility] [address] [place] [phone] Onelia Simon NP [address] [place] [address] documented as of this encounter Procedures Procedure Name Priority Date/Time Associated Diagnosis Comments ECG 12-LEAD 2023 9:28 AM EST documented in this encounter Results * ECG 12-LEAD (2023 9:28 AM EST) Anatomical Region Laterality Modality Other 2023 9:28 AM EST Narrative 08/29/2023 7:11 AM EST The [address] [address] Electrocardiograph Report Signed Patient: RIGO BOLAÑOS MR#: [id number] : 1955 Acct:[id number] Age/Sex: 68 / M ADM Date: 08/28/23 Loc: CARD Attending Dr: Shaikh Leanna Holt Ordering Physician: Shaikh Yanet Ram Date of Service: 08/28/23 Procedure(s): ECG 12 lead Accession Number(s): [id number] cc: The [facility] Test Date: 2023 Pat Name: RIGO BOLAÑOS Department: Room: - Gender: Male Senior Recruitment Consultant: : 1955 Requested By: SHAIKH LEANNA Order Number: [id number] Reading MD: JUAN MOMIN Measurements Intervals [place] Rate: 89 P: 51 MT: 159 QRS: 47 QRSD: 111 T: 47 [...] By: 08/29/23 0711 08/29/23710 DD/ 7 TD/TT: Gas Charger: Procedure Note Radiology, Radiologist, - 08/29/2023 [place] [address] Electrocardiograph Report Signed Patient: RIGO BOLAÑOS EMR#: [id number] : 1955cct:[id number] Age/Sex: 68 / MADM Date: 08/28/23 Loc: CARD Attending Dr: Shaikh Leanna Holt Ordering Physician: Shaikh Yanet Ram Date of Service: 08/28/23 Procedure(s): ECG 12 lead Accession Number(s): [id number] cc: The [facility] Test Date: 2023 Pat Name: RIGO BOLAÑOS Department: Room: - Gender: Male Senior Recruitment Consultant: : 1955 Requested By: SHAIKH LEANNA Order Number: [id number] Reading MD: JUAN MOMIN Measurements Intervals [place] Rate: 89 P: 51 MT: 159 QRS: 47 QRSD: 111 T: 47 QT: 337 QTc: 411 Interpretive Statements SINUS RHYTHM LOW QRS VOLTAGE IN PRECORDIAL LEADS [QRS DEFLECTION < 1.0 mV IN CHESTLEADS] MODERATE INTRAVENTRICULAR CONDUCTION DELAY [110+ ms QRS DURATION] No previous ECG available for comparison Electronically Signed On 08-29-2023 7:11:01 EST by JUAN MOMIN Dictated By: Juan Moimn D.O. Signed By:08/29/23 0711 08/29/23710 DD/ 7 TD/TT: Gas Charger: us Shaikh Leanna [facility] Final Result documented in this encounter Visit Diagnoses Not on filedocumented in this encounter Additional Health Concerns Assessment Noted Time PHQ-9 Depression Total Score: 15 08/27/ 024 3:36 PM EST documented as of this encounter Care Teams Radio Despatcher Relationship Specialty Start Date End Date Shaikh Ram MD [address] [place] [address] PCP - General Internal Medicine 08/26/23 02/28/24 Bakari Bhat MD [address] [place] [address] PCP - General Family Medicine 02/29/24 Cathleen Malik NP [address] [place] [phone] Nurse Practitioner Family Medicine 02/29/24 Faisal Cr LPC Financial Solutions Advisor Behavioral Health 08/31/24 documented as of this encounter
--- OUTSIDE RECORDS SUMMARY | 2025-01-20 07:41 | XMS_ITS | Encounter Summary ---
Author Organization [facility] Address [address] [place] [address] Care Team Providers Care Penciller Name Role Phone Shaikh RICCI Ram Primary Care Provider [phone] Shaikh RICCI Ram Primary Care Provider Bakari Bhat MD Primary Care Provider [phone] Cathleen Malik SENIOR APPLICATION SOFTWARE ENGINEER Unavailable [phone] Faisal Cr LPC Unavailable Unavailable Encounter Details Date Type Department Care Team (Late st Contact Info) Description 07/22/2023 Orders Only [facility] [address] [place] [address] Shaikh Ram MD [address] [place] [address] Social History Tobacco Use Types [...] Office Visit [facility] [address] [place] [address] Onelia Simon NP [address] [place] [address] 01/17/2026 5:00 PM EDT Office Visit [facility] [address] [place] [phone] Onelia Simon NP [address] [place] [address] documented as of this encounter Procedures Procedure [...] on filedocumented in this encounter Care Teams Penciller Relationship Specialty Start Date End Date Shaikh Ram MD PCP - General Internal Medicine 07/27/22 08/25/23 Shaikh Ram MD [address] [place] [phone] PCP - General Internal Medicine 08/26/23 02/28/24 Bakari Bhat MD [address] [place] [address] PCP - General Family Medicine 02/29/24 Cathleen Malik NP [address] [place] [phone] Nurse Practitioner Family Medicine 02/29/24 Faisal Cr LPC Factory Focus Technician Behavioral Health 08/31/24 documented as of this encounter
--- NOTE | 2025-01-20 07:42 | CT_ITS ---
The [address] [address] Patient Name: SHANNON DANIELS MRN: [id number] date: 1955 Sex: M Assigned Patient Location: CT Current Patient Location: CT Accession/Order Number: [id number] Exam Date: 01/20/2025 09:25 Report Date: 01/20/2025 09:43 At the request of: STEWART FLYNN NP Procedure: CT abdomen wo/w con CT ABDOMEN WITHOUT AND WITH INTRAVENOUS CONTRAST COMPARISON: Chest CT 01/17/2025 CLINICAL DATA: Left adrenal nodule nodule Spiral images were obtained through the abdomen before and after intravenous administration of [address] exam was performed using one or more following dose reduction techniques: Automated exposure control, adjustment of the mA and/or kV according to patient size, or use of iterative reconstruction technique. Limited imaging through the lung bases shows minor dependent atelectasis. Evaluation is slightly limited by body habitus. Portions of the right abdomen are not included in their entirety. The visualized liver shows fatty infiltration. There are no obvious calcified gallstones. The spleen and pancreas show no acute findings. There is a left adrenal nodule measuring approximately 3.5 cm in size. Hounsfield measurements precontrast are low. Delayed imaging was not performed to allow evaluation of adrenal washout. An adenoma is favored. There is minor bilateral perinephric fibrofatty stranding. A stone is seen at the lower pole on the right measuring just over a centimeter in size. There is no hydronephrosis. The imaged abdominal aorta is normal caliber. There are tiny lymph nodes. No ascites is present. There is no dilated small bowel loops [id number]. There is stool within the colon. Subtle levoscoliotic curvature and degenerative changes are present at the spine. CT/CT abdomen wo/w con IMPRESSION: LEFT ADRENAL NODULE, NOT FULLY EVALUATED DUE TO TECHNIQUE PERFORMED, HOWEVER ADENOMA IS FAVORED. LONG PATIENT HAS NO KNOWN HISTORY OF MALIGNANCY, FOLLOW-UP COULD BE OBTAINED TO ASSURE STABILITY. FATTY LIVER. RIGHT NEPHROLITHIASIS. Impression dictated by: Krystal Maurice M.D. 01/20/2025 9:43 AM Dictation Location: [place] [address] Electronically authenticated by: [id number] Y Date: 01/20/2025 09:43
--- OUTSIDE RECORDS SUMMARY | 2025-01-20 07:42 | XMS_ITS | CCD ---
Author Organization [facility] Care Team Providers Care Bottle Hop Name Role Phone Ema Mitchell Unavailable SHAIKH Shadi RAM Attending Unavailable FAWWAD, PATINO H Admitting Unavailable FAWWAD, PATINO H Primary Care Unavailable FAWWAD, PATINO H Admitting Unavailable FAWWAD, PATINO H Primary Care Unavailable FAWWAD, PATINO H Consulting Unavailable FAWWAJose Guadalupe, PATINO H Attending Unavailable Ban Heaton Unavailable Shaikh Ram MD Primary Care Provider NON STAFF Primary Care Provider UnavailMD Van Pradhan Attending Provider Van Trinh Attending Unavailable Van Trinh Admitting Unavailable NON STAFF Primary Care Unavailable Bakari Bhat MD Primary Care Provider [phone] Cathleen Malik NP Unavailable [phone] Ira Cr LPC Unavailable Unavailable Cathleen Malik NP Unavailable [phone] EMMANUEL WYATT Attending Unavailable CATHLEEN MALIK Attending [...] Feb, Active cholecalciferol 0.05 mg oral tablet (8 sources) Vitamin D Start: 01-05-2025 End: 02-04-2025 take 1 tablet by mouth once daily cholecalciferol (Vitamin D-3) 50 MCG (1999 UT) tablet Indications: Vitamin D deficiency Take 1 tablet (50 mcg) by mouth Daily 30 tablet 2 01/05/2025 02/04/2025 Active Continuous Glucose Forming Press Operator (FreeStyle Anamaria 2 Sugar Run) device (6 sources) Start: 03-24-2024 End: 04-21-2024 Continuous Glucose Forming Press Operator (FreeStyle Anamaria 2 Sugar Run) device Indications: Type 2 diabetes mellitus without complication, without long-term current use of insulin (CMS/[facility]) Inject 1 each under the skin continuously for 28 days 1 each 03/24/2024 04/21/2024 Active Continuous Glucose Forming Press Operator (FreeStyle Anamaria 3 Sugar Run) device (18 sources) Start: 10-31-2024 Continuous Glucose Forming Press Operator (FreeStyle Anamaria 3 Sugar Run) device Indications: Type 2 diabetes mellitus without complication, without long-term current use of insulin ([facility]) 1 each continuously 1 each 10/31/2024 Active Start: 10-31-2024 Continuous Glu cose Forming Press Operator (FreeStyle Anamaria 3 Sugar Run) device Indications: Type 2 diabetes mellitus without complication, without long-term current use of insulin 1 each continuously 1 each 10/31/2024 Active Start: 09-13-2024 End: 10-31-2024 Continuous Glucose Forming Press Operator (FreeStyle Anamaria 3 Sugar Run) device Indications: Type 2 diabetes mellitus without complication, without long-term current use of insulin 1 each continuously 1 each 09/13/2024 10/31/2024 Discontinued (Reorder) Start: 09-13-2024 Continuous Glu cose Forming Press Operator (FreeStyle Anamaria 3 Sugar Run) device Indications: Type 2 diabetes mellitus without complication, without long-term current use of insulin (CMS/HCC) 1 each continuously 1 each 09/13/2024 Active Continuous Glucose Sensor (FreeStyle Anamaria 3 Plus Sensor) misc (18 sources) Start: 10-31-2024 Continuous Glu cose Sensor (FreeStyle Anamaria 3 Plus Sensor) mis Indications: Type 2 diabetes mellitus without complication, without long-term current use of insulin ([facility]) 1 each continuously 2 each 11 10/31/2024 Active Start: 10-31-2024 Continuous Glu cose Sensor (FreeStyle Anamaria 3 Plus Sensor) [facility] Indications: Type 2 diabetes mellitus without complication, without long-term current use of insulin 1 each continuously 2 each 10/31/2024 Active Start: 09-13-2024 End: 10-31-2024 Continuous Glucose Sensor (F reeStyle Anamaria 3 Plus Sensor) [facility] Indications: Type 2 diabetes mellitus without complication, without long-term current use of insulin 1 each continuously 2 each 11 09/13/2024 10/31/2024 Discontinued (Reorder) Start: 09-13-2024 Continuous Glu cose Sensor (FreeStyle Anamaria 3 Plus Sensor) [facility] Indications: Type 2 diabetes mellitus without complication, without long-term current use of insulin ([facility]) 1 each continuously 2 each 09/13/2024 Active [...] 08/13/2023 Active etodolac 300 mg oral capsule (7 sources) Nonsteroidal Anti-inflammatory Drug Start: 12-27-2024 take [...] 0 Active latanoprost 0.05 mg/ml ophthalmic solution (17 sources) Prostaglandin Analog Start: 06-30-2024 take 1 [...] day Active methocarbamol 750 mg oral tablet (7 sources) Muscle Relaxant Start: 12-27-2024 take 1 [...] Blood Gluc Receiv er (FreeStyle Anamaria 2 Sugar Run) device (6 sources) Start: 06-15-2023 End: 03-24-2024 Continuous Blood Gluc Receiv er (FreeStyle Anamaria 2 Sugar Run) device USE DIRECTED to test BLOOD SUGAR 06/15/2023 03/24/2024 Discontinued (Reorder) Start: 06-15-2023 Continuous Blo od Gluc Forming Press Operator (FreeStyle Anamaria 2 Sugar Run) device USE DIRECTED to test BLOOD SUGAR 06/15/2023 Active Start: 06-15-2023 Continuous Blo od Gluc Forming Press Operator (FreeStyle Anamaria 2 Sugar Run) device USE DIRECTED to test BLOOD SUGAR [...] complication, without long-term current use of insulin ([facility]) USE DIRECTED to test BLOOD SUGAR, change [...] Glucose Sensor (F reeStyle Anamaria 2 Sensor) [facility] Indications: Type 2 diabetes mellitus without complication, without long-term current use of insulin (CMS/HCC) Inject 1 each under the skin continuously for 28 days 1 each 03/24/2024 03/25/2024 Discontinued Start: 03-24-2024 End: 04-21-2024 Continuous Glucose Sensor (F reeStyle Anamaria 2 Sensor) [facility] Indications: Type 2 diabetes mellitus without complication, [...] Classification Problem Date Documented Da te Episodic/Chronic Acquired foot deformities (20 sources) Toe [...] disorder, recurrent, moderate] 06-16-2024 Chronic Nutritional deficiencies (9 sources) Vitamin D deficiency; Translations: [Vitamin D deficiency, unspecified] Onset: 01-05-2025 01-05-2025 Chronic Open wounds of extremities (1 source) Laceration without foreign body, left lower leg, initial encounter Episodic Other diseases of veins and lymphatics (4 sources) Vascular insufficiency; Translations: [Venous insufficiency (chronic) (peripheral)] 04-14-2024 Episodic Other endocrine disorders (3 sources) Adrenal mass; 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, unspecified] Onset: 01-17-2025 01-17-2025 Chronic Other gastrointestinal disorders (1 source) Adrenal mass 01-17-2025 Episodic Other lower respiratory disease (20 sources) Dyspnea on exertion; Translations: [Other forms of dyspnea] Onset: 08-27-2023 Resolved: 01-11-2025 08-27-2023 Episodic Other nutritional; endocrine; and metabolic disorders (20 sources) Severe obesity; Translations: [Morbid (severe) obesity due to excess calories] Onset: 07-09-2023 07-09-2023 Chronic Other nutritional; endocrine; and metabolic disorders (11 sources) Hypercalcemia; Translations: [Hypercalcemia] Onset: 12-28-2024 12-28-2024 Chronic Other upper respiratory disease (20 sources) Allergic rhinitis; Translations: [Other allergic rhinitis] Onset: 07-09-2023 07-09-2023 Chronic Residual codes; unclassified (20 sources) Obstructive sleep apnea syndrome; Translations: [Obstructive sleep apnea (adult) (pediatric)] Onset: 08-27-2023 08-27-2023 Chronic Residual codes; unclassified (17 sources) Bilateral lower limb edema; Translations: [Localized edema] Onset: 12-14-2024 12-14-2024 Episodic Spondylosis; intervertebral disc disorders; other back problems (20 sources) Lumbar spondylosis; Translations: [Spondylosis without myelopathy or radiculopathy, lumbar region] Onset: 08-30-2018 08-27-2023 Chronic Thyroid disorders (3 sources) Thyroid nodule; Translations: [Nontoxic single thyroid nodule] Onset: 01-17-2025 01-17-2025 Chronic Past or Other Problems Problem Classification [...] Test Name Value Interpretation Reference Range Facility RT PULMONARY FUNCTION TESTon 01-19-2025 [place] [address] Respiratory Report Signed Patient: RIGO BOLAÑOS MR#: [id number] : 1955 Acct:[id number] Age/Sex: 69 / M ADM Date: 01/17/25 Loc: CT Attending Dr: Onelia Simon NP Ordering Physician: Onelia Simon NP Date of Service: 01/17/25 Procedure(s): RT pulmonary function test Accession Number(s): [id number] cc: [facility] Test Date: 2025-01-17 Pat Name: RIGO BOLAÑOS Department: Room: - Gender: Male Risk Control Field Representative: Clementine Moss RRT : 1955 Requested By: ONELIA SIMON Order Number: [id number] Reading MD: Ishan Hurst Interpretive Statements Pulmonary [...] Signed By: 01/19/25 1542 DD/ 0811 TD/TT: Sheep Clipper: [facility] Radiology, Radiologist, - 01/19/2025 [place] [address] Respiratory Report Signed Patient: RIGO BOLAÑOS MR#: [id number] : 1955 Acct:[id number] Age/Sex: 69 / M ADM Date: 01/17/25 Loc: CT Attending Dr: Onelia Simon NP Ordering Physician: Onelia Simon NP Date of Service: 01/17/25 Procedure(s): RT pulmonary function test Accession Number(s): [id number] cc: [facility] Test Date: 2025-01-17 Pat Name: RIGO BOLAÑOS Department: Room: - Gender: Male Risk Control Field Representative: Clementine Moss RRT : 1955 Requested By: ONELIA SIMON Order Number: [id number] Reading MD: Ishan Hurst Interpretive Statements Pulmonary [...] Signed By: 01/19/25 1542 DD/ 0811 TD/TT: Sheep Clipper: [facility] RT PULMONARY FUNCTION TESTOr dered By: Radiologist Radiology on 01-19-2025 [place] Work Phone: ALL HEMOGLOBINon 01-17-2025 Hemoglobin (Bld) [Mass/Vol] 15.3 g/dL 14.0 - 18.0 g/dL [facility] e CT CHEST W CONTRASTon [address] [address] [address] Scan Report Signed Patient: RIGO BOLAÑOS MR#: [id number] : 1955 Acct:[id number] Age/Sex: 69 / M ADM Date: 01/17/25 Loc: CT Attending Dr: Onelia Simon NP Ordering Physician: Onelia Simon NP Date of Service: 01/17/25 Procedure(s): CT chest w con Accession Number(s): [id number] cc: Onelia Simon NP [address] [address] Patient Name: RIGO BOLAÑOS MRN: [facility]:[id number] date: 1955 Sex: M Assigned Patient Location: CT Current Patient Location: CT Accession/Order Number: [id number] Exam Date: 01/17/2025 09:11 Report Date: 01/17/2025 [...] Maurice M.D. 01/17/2025 9:19 AM Dictation Location: [place] [address] Electronically authenticated by: [id number] Y Date: 01/17/2025 09:19 Dictated By: Krystal Maurice M.D. Signed By: 01/17/25920 DD/ 8 TD/TT: Sheep Clipper: [facility] Radiology, Radiologist, - 01/17/2025 [place] [address] CT Scan Report Signed Patient: RIGO BOLAÑOS MR#: [id number] : 1955 Acct:[id number] Age/Sex: 69 / M ADM Date: 01/17/25 Loc: CT Attending Dr: Onelia Simon NP Ordering Physician: Onelia Simon NP Date of Service: 01/17/25 Procedure(s): CT chest w con Accession Number(s): [id number] cc: Onelia Simon NP [place] [id number] Patient Name: RIGO BOLAÑOS MRN: [id number] date: 1955 Sex: M Assigned Patient Location: CT Current Patient Location: CT Accession/Order Number: [id number] Exam Date: 01/17/2025 09:11 Report Date: 01/17/2025 [...] Maurice M.D. 01/17/2025 9:19 AM Dictation Location: [place] [address] Electronically authenticated by: [id number] Y Date: 01/17/2025 09:19 Dictated By: Krystal Mauirce M.D. Signed By: 01/17/25920 DD/ 8 TD/TT: Sheep Clipper: [facility] [employer] Radiology Study observation (narrative) [facility] CT CHEST W CONTRASTOrdered B y: Radiologist Radiology on 01-17-2025 [facility] [employer] Work Phone: RT PULMONARY FUNCTION TESTon 01-17-2025 Radiology Study observation (narrative) [facility] CA ECHO DOPPLER COMPLETEon 0 01-04-2025 [place] [address] Cardiology Report Signed Patient: RIGO BOLAÑOS MR#: [id number] : 1955 Acct:[id number] Age/Sex: 69 / M ADM Date: 01/04/25 Loc: CARD Attending Dr: Onelia Simon NP Ordering Physician: Onelia Simon NP Date of Service: 01/04/25 Procedure(s): CA echo doppler complete Accession Number(s): [id number] cc: Onelia Simon NP Patient Name: RIGO BOLAÑOS MR#: [id number] : 1955 Exam Date: 01/04/2025 Ordering Doctor: [...] By: 01/04/25 1802 (more content not included)... [facility] Radiology, Radiologist, MD - 01/04/2025 [place] [address] Cardiology Report Signed Patient: RIGO BOLAÑOS MR#: [id number] : 1955 Acct:[id number] Age/Sex: 69 / M ADM Date: 01/04/25 Loc: CARD Attending Dr: Onelia Simon NP Ordering Physician: Onelia Simon NP Date of Service: 01/04/25 Procedure(s): CA echo doppler complete Accession Number(s): [id number] cc: Onelia Simon NP Patient Name: RIGO BOLAÑOS MR#: [id number] : 1955 Exam Date: 01/04/2025 Ordering Doctor: [...] Signed By: 01/04/25 1802 DD/ 1800 TD/TT: Sheep Clipper: [facility] Radiology Study observation (narrative) [facility] CA ECHO DOPPLER COMPLETEOrde red By: Radiologist Radiology on 01-04-2025 [facility] Work Phone: [facility] VITAMIN D 25 OHon 2024 VITAMIN D 27.9 ng/mL [facility] Comment on above: <20 ng/mL Vit D defi cient 20-<30 ng/mL Vit D insufficient 30-100 ng/mL Vit D sufficient >100 ng/mL [facility] ALL BASIC METABOLIC PANELon 12-27-2024 Anion gap [Moles/Vol] 15.6 mmol/L [facility] Calcium [Mass/Vol] 10.2 mg/dL High 8.5 - 10. 1 mg/dL [facility] Chloride [Moles/Vol] 98 mmol/L 98 - 10 7 mmol/L [facility] CO2 [Moles/Vol] 29.9 mmol/L 21.0 - 32.0 mmol/L [facility] Creatinine [Mass/Vol] 0.85 mg/dL 0.70 - 1.30 mg/dL [facility] GFR/1.73 sq M.predicted CKD-EPI (S/P/Bld) [Vol rate/Area] >60 >=60 mL/min/1.73m 2 [facility] Glucose [Mass/Vol] 177 mg/dL High 74 - 106 mg/dL [facility] Interpretation and review of laboratory results Abnormal [facility] Potassium [Moles/Vol] 4.5 mmol/L 3.5 - 5.1 mmol/L [facility] Sodium [Moles/Vol] 139 mmol/L 136 - 145 mmol/L [facility] EGFR-NON AF MALAYSIAN >60 >=60 mL/min/1.73m 2 [facility] Urea nitrogen [Mass/Vol] 16 mg/dL 7.0 - 18.0 mg/dL [facility] Urea nitrogen/Creatinine [Mass ratio] 18.8 mg/mg [facility] HbA1c (Bld) [Mass fraction]o n 12-14-2024 Interpretation and review of laboratory results Abnormal [facility] - Hematology and Cell countson 12-14-2024 HbA1c (Bld) [Mass fraction] 7 % [facility] Capillary blood glucose gisele urement by glucometer (mass/volume)Ordered By: Van Trinh on 04-28-2024 Glucose [Mass/Vol] 190 mg/dL Normal [facility] Comment on above: Random Glucose Refer ence Range is dependent on time and content of last meal. Glucose of more than 200 mg/dL in a nonstressed, ambulatory subject supports the diagnosis of Diabetes Mellitus. Result Comment: [place] om Glucose Reference Range is dependent on time and content of last meal. Glucose of more than 200 mg/dL in a nonstressed, ambulatory subject supports the diagnosis of Diabetes Mellitus. Performed By: #### G LULS #### Point of Care testing , Glucose Poct Glucometerson 1 Commemt1 Glu2: Cleaned Meter Normal [facility] Comment on above: Result Comment: PERF ORMED BY: [place] [address] PATHOLOGIST RECORDING STUDIO SETUP WORKER SHASTA ALEXANDER M.D. Performed By: #### G LULS #### Point of Care testing , No Panel InformationOrdered By: Van Trinh on 04-28-2024 Bedside Glucose Comment Glu2: cleaned meter [facility] Pathology Request for Lab Co rpon 04-28-2024 Pathology Request for Lab Carlos Normal [facility] Comment on above: Order Comment: PATHO LOGY GI SPECIMEN Result Comment: See report. Scanned copy available in EMR. PERFORMED BY: [place] [address] PATHOLOGIST RECORDING STUDIO SETUP WORKER SHASTA ALEXANDER M.D. Performed By: #### P ATH TO [facility] #### [address] CBC AUTO DIFFon 10-08-2022 BASO # 0.1 103/ul Normal 0.0-0.1 [facility] Comment on above: Performed By: #### C BC #### [facility] [address] [place] [address] [address] Brandon Gilmore Basophils/100 WBC (Bld) 0.8 % Normal 0.2-2.0 [facility] Comment on above: Performed By: #### C BC #### [facility] [address] [place] [address] Dr. Brandon Gilmore EO # 0.1 103/ul Normal 0.0-0.7 [facility] Comment on above: Performed By: #### C BC #### [facility] [address] [place] [address] Dr. Brandon Gilmore Eosinophils/100 WBC (Bld) 1.7 % Normal 0.9-7.0 [facility] Comment on above: Performed By: #### C BC #### [facility] [address] [place] [address] Dr. Brandon Gilmore Erythrocyte distribution width (RBC) [Ratio] 14.0 % Normal 11.0-15.0 [facility] Comment on above: Performed By: #### C BC #### [facility] [address] [place] [address] Dr. Brandon Gilmore Hematocrit (Bld) [Volume fraction] 42.7 % Normal 42.0-54.0 [facility] Comment on above: Performed By: #### C BC #### [facility] [address] [place] [address] Dr. Brandon Gilmore Hemoglobin (Bld) [Mass/Vol] 14.9 g/dL Normal 14.0-18.0 [facility] Comment on above: Performed By: #### C BC #### [facility] [address] [place] [address] Dr. Brandon Gilmore IG # 0.02 10e3/ul Normal 0.00-0.03 [facility] Comment on above: Performed By: #### C BC #### [facility] [address] [place] [address] Dr. Brandon Gilmore IG % 0.3 % Normal 0.0-0.5 [facility] Comment on above: Performed By: #### C BC #### [facility] [address] [place] [address] Dr. Brandon Gilmore LYMPH # 1.9 103/ul Normal 1.2-3.8 [facility] Comment on above: Performed By: #### C BC #### [facility] [address] [place] [address] Dr. Brandon Gilmore Lymphocytes/100 WBC (Bld) 25.0 % Normal 20.5-60.0 [facility] Comment on above: Performed By: #### C BC #### [facility] [address] [place] [address] Dr. Brandon Gilmore MANUAL DIFF REQ NO Normal [facility] Comment on above: Performed By: #### C BC #### [facility] [address] [place] [address] Dr. Brandon Gilmore MCH (RBC) [Entitic mass] 29.1 pg Normal 25.9-34.0 [facility] Comment on above: Performed By: #### C BC #### [facility] [address] [place] [address] Dr. Brandon Gilmore MCHC (RBC) [Mass/Vol] 34.9 g/dL Normal 29.9-35.2 [facility] Comment on above: Performed By: #### C BC #### [facility] [address] [place] [address] Dr. Brandon Gilmore MCV (RBC) [Entitic vol] 83.4 fL Normal 80.0-94.0 [facility] Comment on above: Performed By: #### C BC #### [facility] [address] [place] [address] Dr. Brandon Gilmore MONO # 0.5 103/ul Normal 0.3-0.8 [facility] Comment on above: Performed By: #### C BC #### [facility] [address] [place] [address] Dr. Brandon Gilmore Monocytes/100 WBC (Bld) 6.1 % Normal 1.7-12.0 [facility] Comment on above: Performed By: #### C BC #### [facility] [address] [place] [address] Dr. Brandon Gilmore NEUT # 5.1 103/ul Normal 1.4-6.5 [facility] Comment on above: Performed By: #### C BC #### [facility] [address] [place] [address] Dr. Brandon Gilmore Neutrophils/100 WBC (Bld) 66.1 % Normal 43.0-75.0 [facility] Comment on above: Performed By: #### C BC #### [facility] [address] [place] [address] Dr. Brandon Gilmore Platelet mean volume (Bld) [Entitic vol] 9.7 fL Normal 9.5-13.5 [facility] Comment on above: Performed By: #### C BC #### [facility] [address] [place] [address] [address] Brandon Gilmore PLT 195 103/ul Normal 150-450 [facility] Comment on above: Performed By: #### C BC #### [facility] [address] [place] [address] Dr. Brandon Gilmore RBC 5.12 106/ul Normal 4.70-6.10 [facility] Comment on above: Performed By: #### C BC #### [facility] [address] [place] [address] Dr. Brandon Gilmore WBC 7.7 103/ul Normal 4.0-11.0 [facility] Comment on above: Performed By: #### C BC #### [facility] [address] [place] [address] Dr. Brandon Gilmore GLYCOHEMOGLOBIN A1Con 2022 ADA RECOMMENDATION SEE BELOW Normal [facility] Comment on above: Result Comment: ADA RECOMMENDED LIMIT 4.0 - 6.0 ADA THERAPEUTIC TARGET < 7.0 ACTION SUGGESTED > 7.0 Performed By: #### A 1C #### [facility] [address] [place] [address] Dr. Brandon Gilmore Glucose [Mass/Vol] 137 mg/dL Normal [facility] [place] Comment on above: Performed By: #### A 1C #### [facility] [address] [place] [address] Dr. Brandon Gilmore HbA1c (Bld) [Mass fraction] 6.4 % Critically high 4.5-6.2 [facility] Comment on above: Performed By: #### A 1C #### [facility] [address] [place] [address] Dr. Brandon Gilmore LIPID PROFILEon 10-08-2022 CHOL-HDL RATIO NORM SEE BELOW Normal [facility] [place] [facility] Comment on above: Result Comment: 3.3 - 4.4 LOW RISK 4.4 - 7.1 AVERAGE RISK 7.1 - 11.0 MODERATE RISK >11.0 HIGH RISK Performed By: #### L IPID, CMP #### [facility] [address] [place] [address] [address] Brandon Gilmore Cholesterol [Mass/Vol] 196 mg/dL Normal <=200 Th [facility] Comment on above: Performed By: #### L IPID, CMP #### [facility] [address] [place] [address] [address] Brandon Gilmore Cholesterol in HDL [Mass/Vol] 48 mg/dL Normal 40-60 [facility] Comment on above: Performed By: #### L IPID, CMP #### [facility] [address] [place] [address] [address] Brandon Gilmore Cholesterol in LDL [Mass/Vol] 101.8 mg/dL Normal [facility] Comment on above: Performed By: #### L IPID, CMP #### [facility] [address] [place] [address] [address] Brandon Gilmore Cholesterol.total/Chol esterol in HDL [Mass ratio] 4.1 {ratio} Normal [facility] Comment on above: Performed By: #### L IPID, CMP #### [facility] [address] [place] [address] [address] Brandon Gilmore HDL NORMAL > or = 60 mg/dl - LOW CARDIOVASCULAR RISK <40 mg/dl - HIGH CARDIOVASCULAR RISK Normal [facility] Comment on above: Performed By: #### L IPID, CMP #### [facility] [address] [place] [address] [address] Brandon Gilmore LDL CALC NORMAL SEE BELOW Normal [facility] [facility] Comment on above: Result Comment: <100 mg/dl OPTIMAL 100 - 129 mg/dl NEAR OR ABOVE OPTIMAL 130 - 159 mg/dl BORDERLINE HIGH 160 - 189 mg/dl HIGH >190 mg/dl VERY HIGH Performed By: #### L IPID, CMP #### [facility] [address] [address] [address] Brandon Gilmore Triglyceride [Mass/Vol] 231 mg/dL Critically high <=150 [facility] Comment on above: Performed By: #### L IPID, CMP #### [facility] [address] [address] [address] Brandon Gilmore VLDL CALC 46.2 mg/dL Normal [facility] Comment on above: Performed By: #### L IPID, CMP #### [facility] [address] [address] [address] Brandon Gilmore MICROALB CREAT RATIO RANDOMo n 10-08-2022 mALB 1.7 mg/L Normal <=30.0 [facility] Comment on above: Performed By: #### M CRR #### [facility] [address] [address] [address] Brandon Gilmore MALB CR RATIO 20.6 mg/g Normal 0.0-29.9 [facility] Comment on above: Performed By: #### M CRR #### [facility] [address] [address] [address] Brandon Gilmore MALB CR RATIO RANGE SEE BELOW Normal [facility] Comment on above: Result Comment: NO M ICROALBUMINURIA 0-29 MG/G CLINICAL MICROALBUMINURIA 30-300 MG/G MACROALBUMINURIA >300 MG/G Performed By: #### M CRR #### [facility] [address] [address] [address] Brandon Gilmore URINE CREAT 82.51 mg/dL Normal 20.00-300.[address] [facility] Comment on above: Performed By: #### M CRR #### [facility] [address] [address] [address] Brandon Gilmore PROF 14(COMP METB)on 023 Albumin [Mass/Vol] 4.0 g/dL Normal 3.4-5.0 [facility] Comment on above: Performed By: #### L IPID, CMP #### [facility] [address] [address] [address] Brandon Gilmore Albumin/Globulin [Mass ratio] 1.2 {ratio} Normal [facility] Comment on above: Performed By: #### L IPID, CMP #### [facility] [address] [place] [address] Dr. Brandon Gilmore ALP [Catalytic activity/Vol] 90 U/L Normal 46-116 [facility] Comment on above: Performed By: #### L IPID, CMP #### [facility] [address] [place] [address] Dr. Brandon Gilmore ALT [Catalytic activity/Vol] 25 U/L Normal 16-63 [facility] Comment on above: Performed By: #### L IPID, CMP #### [facility] [address] [place] [address] Dr. Brandon Gilmore Anion gap [Moles/Vol] 10.9 mmol/L Normal [facility] Comment on above: Performed By: #### L IPID, CMP #### [facility] [address] [place] [address] Dr. Brandon Gilmore AST [Catalytic activity/Vol] 17 U/L Normal 15-37 [facility] Comment on above: Performed By: #### L IPID, CMP #### [facility] [address] [place] [address] Dr. Brandon Gilmore Bilirubin [Mass/Vol] 0.4 mg/dL Normal 0.2-1.0 [facility] Comment on above: Performed By: #### L IPID, CMP #### [facility] [address] [place] [address] Dr. Brandon Gilmore Calcium [Mass/Vol] 10.1 mg/dL Normal 8.5-10.1 [facility] Comment on above: Performed By: #### L IPID, CMP #### [facility] [address] [place] [address] Dr. Brandon Gilmore Chloride [Moles/Vol] 106 mmol/L Normal 98-107 [facility] Comment on above: Performed By: #### L IPID, CMP #### [facility] [address] [place] [address] Dr. Brandon Gilmore CO2 [Moles/Vol] 29.4 mmol/L Normal 21.0-32.0 [facility] Comment on above: Performed By: #### L IPID, CMP #### [facility] [address] [place] [address] Dr. Brandon Gilmore Creatinine [Mass/Vol] 0.78 mg/dL Normal 0.70-1.30 [facility] Comment on above: Performed By: #### L IPID, CMP #### [facility] [address] [address] [address] Brandon Gilmore EGFR-AF MALAYSIAN >60 Normal >=60 [facility] Comment on above: Performed By: #### L IPID, CMP #### [facility] [address] [place] [address] Dr. Brandon Gilmore EGFR-NON AF MALAYSIAN >60 Normal >=60 [facility] Comment on above: Performed By: #### L IPID, CMP #### [facility] [address] [place] [address] Dr. Brandon Gilmore Globulin (S) [Mass/Vol] 3.3 g/dL Normal [facility] Comment on above: Performed By: #### L IPID, CMP #### [facility] [address] [place] [address] Dr. Brandon Gilmore Glucose [Mass/Vol] 213 mg/dL Critically high 74-106 [facility] Comment on above: Performed By: #### L IPID, CMP #### [facility] [address] [place] [address] Dr. Brandon Gilmore Potassium [Moles/Vol] 4.3 mmol/L Normal 3.5-5.1 [facility] Comment on above: Performed By: #### L IPID, CMP #### [facility] [address] [place] [address] Dr. Brandon Gilmore Protein [Mass/Vol] 7.3 g/dL Normal 6.4-8.2 [facility] [place] Comment on above: Performed By: #### L IPID, CMP #### [facility] [address] [place] [address] Dr. Brandon Gilmore Sodium [Moles/Vol] 142 mmol/L Normal 136-145 [facility] Comment on above: Performed By: #### L IPID, CMP #### [facility] [address] [address] [address] Brandon Gilmore Urea nitrogen [Mass/Vol] 14.0 mg/dL Normal 7.0-18.0 [facility] Comment on above: Performed By: #### L IPID, CMP #### [facility] [address] [address] [address] Brandon Gilmore Urea nitrogen/Creatinine [Mass ratio] 17.9 mg/mg Normal [facility] Comment on above: Performed By: #### L IPID, CMP #### [facility] [address] [address] [address] Brandon Gilmore Quick Fluon 07-12-2021 FLUAV Ab CF (S) [Titer] Negative [facility] [employer] Other FLUBV Ab CF (S) [Titer] Negative [facility] [employer] Other Vital Signs Date Time Vital Sign Value Performing Clinician Facility 01-11-2025 14:49-0400 Body mass index (BMI) [Ratio] 51.62 kg/m2 Onelia Simon [employer] Work Phone: [facility] 01-11-2025 14:49-0400 Body temperature 97.81 [degF] Onelia Simon [employer] Work Phone: [facility] 01-11-2025 14:49-0400 Body weight 145.06 kg Onelia Simon [employer] Work Phone: [facility] 01-11-2025 14:49-0400 Diastolic blood pressure 82 mm[Hg] Onelia Simon [employer] Work Phone: [facility] 01-11-2025 14:49-0400 Heart rate 95 /min Onelia Simon [employer] Work Phone: [facility] 01-11-2025 14:49-0400 Respiratory rate 20 /min Onelia Aichholz [employer] Work Phone: [facility] 01-11-2025 14:49-0400 SaO2% (BldA) [Mass fraction] 92 % Oneliajuan ramon Austinholz [employer] Work Phone: [facility] 01-11-2025 14:49-0400 Systolic blood pressure 134 mm[Hg] Onelia Luishholz [employer] Work Phone: [facility] 12-14-2024 13:29-0400 Body mass index (BMI) [Ratio] 52 kg/m2 Onelia Geovannaholz [employer] Work Phone: [facility] 12-14-2024 13:29-0400 Body temperature 97.81 [degF] Onelia Geovannaholz [employer] Work Phone: [facility] 12-14-2024 13:29-0400 Body weight 146.15 kg Onelia Geovannaholz [employer] Work Phone: [facility] 12-14-2024 13:29-0400 Diastolic blood pressure 80 mm[Hg] Onelia Luishholz [employer] Work Phone: [facility] 12-14-2024 13:29-0400 Heart rate 91 /min Onelia Luishholz [employer] Work Phone: [facility] 12-14-2024 13:29-0400 Respiratory rate 24 /min Onelia Luishholz [employer] Work Phone: [facility] 12-14-2024 13:29-0400 SaO2% (BldA) [Mass fraction] 93 % Onelia Geovannaholz [employer] Work Phone: [facility] 12-14-2024 13:29-0400 Systolic blood pressure 150 mm[Hg] Onelia Aichholz [employer] Work Phone: [facility] 09-13-2024 15:36-0500 Body height 167.6 cm Cathleen Malik [employer] Work Phone: [facility] 09-13-2024 15:36-0500 Body mass index (BMI) [Ratio] 51.33 kg/m2 Cathleen Malik [employer] Work Phone: [facility] 09-13-2024 15:36-0500 Body temperature 97.81 [degF] Cathleen Malik [employer] Work Phone: [facility] 09-13-2024 15:36-0500 Body weight 144.24 kg Cathleen Malik [employer] Work Phone: [facility] 09-13-2024 15:36-0500 Diastolic blood pressure 74 mm[Hg] Cathleen Malik [employer] Work Phone: [facility] 09-13-2024 15:36-0500 Heart rate 102 /min Cathleen Malik [employer] Work Phone: [facility] 09-13-2024 15:36-0500 Respiratory rate 16 /min Cathleen Malik [employer] Work Phone: [facility] 09-13-2024 15:36-0500 SaO2% (BldA) [Mass fraction] 93 % Cathleen Malik [employer] Work Phone: [facility] 09-13-2024 15:36-0500 Systolic blood pressure 130 mm[Hg] Cathelen Malik [employer] Work Phone: [facility] 08-18-2024 13:41-0500 Body height 167.6 cm Emmanuel Wyatt DPM Work Phone: [facility] 08-18-2024 13:41-0500 Body mass index (BMI) [Ratio] 52.29 kg/m2 Emmanuel Wyatt DPM Work Phone: [facility] 08-18-2024 13:41-0500 Body weight 146.97 kg Emmanuel Wyatt DPM Work Phone: [facility] 08-18-2024 13:41-0500 Respiratory rate 18 /min Emmanuel Wyatt DPM Work Phone: [facility] 06-16-2024 14:36-0500 Body height 167.6 cm Cathleen Malik [employer] Work Phone: [facility] 06-16-2024 14:36-0500 Body mass index (BMI) [Ratio] 52.33 kg/m2 Cathleen Malik [employer] Work Phone: [facility] 06-16-2024 14:36-0500 Body temperature 96.49 [degF] Cathleen Malik [employer] Work Phone: [facility] 06-16-2024 14:36-0500 Body weight 147.06 kg Cathleen Malik [employer] Work Phone: [facility] 06-16-2024 14:36-0500 Diastolic blood pressure 82 mm[Hg] Cathleen Malik [employer] Work Phone: [facility] 06-16-2024 14:36-0500 Heart rate 91 /min Cathleen Malik [employer] Work Phone: [facility] 06-16-2024 14:36-0500 Respiratory rate 18 /min Cathleen Malik [employer] Work Phone: [facility] 06-16-2024 14:36-0500 SaO2% (BldA) [Mass fraction] 93 % Cathleen Malik [employer] Work Phone: [facility] 06-16-2024 14:36-0500 Systolic blood pressure 126 mm[Hg] Cathleen Malik [employer] Work Phone: [facility] 04-28-2024 11:05-0400 Diastolic blood pressure 93 mm[Hg] [facility] 04-28-2024 11:05-0400 Heart rate 93 /min [facility] 04-28-2024 11:05-0400 Respiratory rate 20 /min [facility] 04-28-2024 11:05-0400 SaO2% (BldA) [Mass fraction] 95 % [facility] 04-28-2024 11:05-0400 Systolic blood pressure 155 mm[Hg] [facility] 04-28-2024 09:02-0400 Body height 170.18 cm [facility] 04-28-2024 09:02-0400 Body weight 145.14 kg [facility] 04-14-2024 15:42-0400 Body height 167.6 cm Emmanuel Wyatt DPM Work Phone: [facility] 04-14-2024 15:42-0400 Body mass index (BMI) [Ratio] 51.65 kg/m2 Emmanuel Wyatt DPM Work Phone: [facility] 04-14-2024 15:42-0400 Body weight 145.15 kg Emmanuel Wyatt DPM Work Phone: [facility] 04-14-2024 15:42-0400 Diastolic blood pressure 80 mm[Hg] Emmanuel Wyatt DPM Work Phone: [facility] 04-14-2024 15:42-0400 Heart rate 74 /min Emmanuel Wyatt DPM Work Phone: [facility] 04-14-2024 15:42-0400 Respiratory rate 18 /min Emmanuel Wyatt DPM Work Phone: [facility] 04-14-2024 15:42-0400 Systolic blood pressure 122 mm[Hg] Emmanuel Wyatt DPM Work Phone: [facility] 03-24-2024 14:46-0400 Body height 167.6 cm Cathleen Malik [employer] Work Phone: [facility] 03-24-2024 14:46-0400 Body mass index (BMI) [Ratio] 51.65 kg/m2 Cathleen Malik [employer] Work Phone: [facility] 03-24-2024 14:46-0400 Body temperature 99.3 [degF] Cathleen Malik [employer] Work Phone: [facility] 03-24-2024 14:46-0400 Body weight 145.15 kg Cathleen Malik [employer] Work Phone: [facility] 03-24-2024 14:46-0400 Diastolic blood pressure 80 mm[Hg] Cathleen Malik [employer] Work Phone: [facility] 03-24-2024 14:46-0400 Heart rate 97 /min Cathleen Malik [employer] Work Phone: [facility] Comment on above: 95% O2 03-24-2024 14:46-0400 Systolic blood pressure 120 mm[Hg] Cathleen Malik [employer] Work Phone: [facility] 08-27-2023 15:27-0500 Body height 167.6 cm Shaikh Leanna WYNNE Work Phone: [facility] 08-27-2023 15:27-0500 Body mass index (BMI) [Ratio] 52.62 kg/m2 Shaikh Leanna WYNNE Work Phone: [facility] 08-27-2023 15:27-0500 Body temperature 96.8 [degF] Shaikh Leanna WYNNE Work Phone: [facility] 08-27-2023 15:27-0500 Body weight 147.87 kg Shaikh Leanna WYNNE Work Phone: [facility] 08-27-2023 15:27-0500 Diastolic blood pressure 90 mm[Hg] Shaikh Leanna WYNNE Work Phone: [facility] 08-27-2023 15:27-0500 Heart rate 98 /min Shaikh eLanna WYNNE Work Phone: [facility] 08-27-2023 15:27-0500 SaO2% (BldA) [Mass fraction] 95 % Shaikh Leanna WYNNE Work Phone: [facility] 08-27-2023 15:27-0500 Systolic blood pressure 126 mm[Hg] Shaikh Leanna WYNNE Work Phone: [facility] 03-09-2023 18:05-0400 Body height 167.64 cm Ban Heaton Other [employer] Other 03-09-2023 18:05-0400 Body mass index (BMI) [Ratio] 52.45 kg/m2 Ban Heaton Other [employer] Other 03-09-2023 18:05-0400 Body temperature 97.5 [degF] Ban Heaton Other [employer] Other 03-09-2023 18:05-0400 Body weight 147.42 kg Ban Heaton Other [employer] Other 03-09-2023 18:05-0400 Diastolic blood pressure 83 mm[Hg] Ban Heaton Other [employer] Other 03-09-2023 18:05-0400 Respiratory rate 18 /min Ban Heaton Other [employer] Other 03-09-2023 18:05-0400 SaO2% (BldA) [Mass fraction] 97 % Ban Heaton Other [employer] Other 03-09-2023 18:05-0400 Systolic blood pressure 144 mm[Hg] Ban Heaton Other [employer] Other 07-12-2021 12:30-0500 Body height 167.64 cm Ema Mitchell Other [employer] Other 07-12-2021 12:30-0500 Body mass index (BMI) [Ratio] 51.64 kg/m2 Ema Mitchell Other [employer] Other 07-12-2021 12:30-0500 Body temperature 98.3 [degF] Ema Mitchell Other [employer] Other 07-12-2021 12:30-0500 Body weight 145.15 kg Ema Mitchell Other [employer] Other 07-12-2021 12:30-0500 SaO2% (BldA) [Mass fraction] 92 % Ema Mitchell Other [employer] Other Encounters Encounter Date Encounter Type Care Provider Facility Start: 01-17-2025 End: 01-19-2025 Clinisync Result Encounter Onelia Simon [employer] Work Phone: [facility] External [facility] Unsolicited Start: 01-17-2025 End: 01-19-2025 Clinisync Result Encounter Onelia Simon [employer] Work Phone: [facility] External [facility] Unsolicited Start: 01-17-2025 End: 01-17-2025 Orders Only Onelia Simon [employer] Work Phone: [facility] Comment on above: Thyroid nodule (Prim alley Dx); Adrenal nodule (HCC) Start: 01-11-2025 End: 01-11-2025 ambulatory ONELIA ALFRED Not Available Start: 01-11-2025 End: 01-11-2025 Bamboo flowsheet Onelia Simon [employer] Work Phone: [facility] Start: 01-11-2025 End: 01-11-2025 Bamboo flowsheet Onelia Simon [employer] Work Phone: [facility] Start: 01-11-2025 End: 01-11-2025 Patient encounter procedure Onelia Simon [employer] Work Phone: [facility] Comment on above: Medicare annual well ness visit, subsequent (Primary Dx); JEFF (obstructive sleep apnea); Primary hypertension ; Class 3 severe obesity due to excess calories without serious comorbidity with body mass index (BMI) of 50.0 to 59.9 in adult ([facility]); Type 2 diabetes mellitus without complication, without long-term current use of insulin ([facility]); IQBAL (dyspnea on exertion); Dyspnea on exertion Start: 01-05-2025 End: 01-05-2025 Refill Onelia Simon [employer] Work Phone: [facility] Comment on above: Vitamin D deficiency (Primary Dx); Hypercalcemia Start: 01-04-2025 End: 01-04-2025 Clinisync Result Encounter Onelia Simon [employer] Work Phone: [facility] External Department Unsolicited Start: 01-04-2025 End: 01-04-2025 Clinisync Result Encounter Onelia Simon [employer] Work Phone: [facility] External Department Unsolicited Start: 12-27-2024 End: 12-27-2024 Clinisync Result Encounter Onelia Simon [employer] Work Phone: [facility] External Department Unsolicited Start: 12-27-2024 End: 12-27-2024 Clinisync Result Encounter Onelia Simon [employer] Work Phone: [facility] External Department Unsolicited Start: 12-14-2024 End: 12-14-2024 Bamboo flowsheet Onelia Simon [employer] Work Phone: [facility] Start: 12-14-2024 End: 12-14-2024 Bamboo flowsheet Onelia Simon [employer] Work Phone: [facility] Start: 12-14-2024 End: 12-14-2024 Office outpatient visit 25 minutes Onelia Simon [employer] Work Phone: [facility] Comment on [...] edema Start: 12-14-2024 End: 12-14-2024 ambulatory ONELIA AUSTINJUAQUIN Not Available Start: 10-31-2024 End: 10-31-2024 Araceli Bhat MD Work Phone: [facility] Comment on above: Lumbar spondylosis ( Primary Dx); Type 2 diabetes mellitus without complication, without long-term current use of insulin; Essential (primary) hypertension (CMS/HCC); Other specified anxiety disorders; 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); H/O seasonal allergies; Type 2 diabetes mellitus without complications; Hyperlipidemia, unspecified (CMS/HCC) Start: 09-13-2024 End: 09-13-2024 Office outpatient visit 15 minutes Cathleen Malik [employer] Work Phone: [facility] Comment on above: Moderate [...] Start: 09-13-2024 End: 09-13-2024 Bamboo flowsheet Cathleen Grimesk [employer] Work Phone: [facility] Start: 09-13-2024 End: 09-13-2024 Bamboo flowsheet Cathleen Lowezpatrick [employer] Work Phone: [facility] Start: 08-18-2024 End: 08-18-2024 Bamboo flowsheet Emmanuel Wyatt DPM Work Phone: [facility] Start: 08-18-2024 End: 08-18-2024 Bamboo flowsheet [...] Start: 07-25-2024 End: 07-27-2024 Refill Cathleen Malik NP Work Phone: [facility] Comment on above: Hyperlipidemia, unsp ecified (CMS/HCC); Essential (primary) hypertension (CMS/HCC) Start: 07-21-2024 End: 07-21-2024 Telephone encounter Emmanuel Wyatt DPM Work Phone: [facility] Start: 07-06-2024 End: 07-06-2024 Bamboo flowsheet Ira Malicki NURSING AIDE [facility] Start: 07-06-2024 End: 07-06-2024 Bamboo flowsheet Ira Malicki NURSING AIDE [facility] Start: 07-06-2024 End: 07-06-2024 ambulatory IRA MALICKI Not Available Start: 06-16-2024 End: 06-16-2024 Office outpatient visit 15 minutes Cathleen Malik [employer] Work Phone: [facility] Comment on above: Type 2 diabetes carine itus with polyneuropathy (CMS/HCC) (Primary Dx); Primary hypertension (CMS/HCC); Type 2 diabetes mellitus without complication, without long-term current use of insulin (CMS/[facility]); Moderate episode of recurrent major depressive disorder ([facility]); Class 3 severe obesity due to excess calories without serious comorbidity with body mass index (BMI) of 50.0 to 59.9 in adult ([facility]) Start: 06-16-2024 End: 06-16-2024 ambulatory CATHLEEN MALIK Not Available Start: 06-16-2024 End: 06-16-2024 Bamboo flowsheet Cathleen Malik [employer] Work Phone: [facility] Start: 06-16-2024 End: 06-16-2024 Bamboo flowsheet Cathleen Malik [employer] Work Phone: [facility] Start: 05-11-2024 End: 05-11-2024 Refill Cathleen Malik [employer] Work Phone: [facility] Comment on above: Other specified anxi ety disorders Start: 04-28-2024 Non-patient / Non-visit [facility] Work Phone: Start: 04-28-2024 End: 04-28-2024 Admission to same day surgery center [facility] Work Phone: Start: 04-28-2024 End: 04-28-2024 ambulatory NON STAFF [facility] Work Phone: Start: 04-14-2024 End: 04-14-2024 Office outpatient new 30 minutes Emmanuel Wytat DPM Work Phone: [facility] Comment on above: Hallux rigidus of le ft foot (Primary Dx); Type 2 diabetes mellitus without complication, without long-term current use of insulin ([facility]); Hallux rigidus of right foot; Diabetes mellitus due to underlying condition with diabetic polyneuropathy, unspecified whether senior living insulin use ([facility]); Onychomycosis; Toe pain, bilateral; Venous insufficiency Start: 04-14-2024 End: 04-14-2024 ambulatory EMMANUEL WYATT Not Available Start: 04-14-2024 End: 04-14-2024 Bamboo flowsheet Emmanuel Wyatt DPM Work Phone: [facility] Start: 04-14-2024 End: 04-14-2024 Bamboo flowsheet Emmanuel Wyatt DPM Work Phone: [facility] Start: 03-24-2024 End: 03-24-2024 Office outpatient visit 25 minutes Cathleen Malik [employer] Work Phone: [facility] Comment on above: JEFF (obstructive sle ep apnea) (Primary Dx); Primary hypertension ([facility]/HCC); Class 3 severe obesity due to excess calories without serious comorbidity with body mass index (BMI) of 50.0 to 59.9 in adult ([facility]); Type 2 diabetes mellitus without complication, without long-term current use of insulin ([facility]); Other hyperlipidemia ([facility]); Screening for colon cancer; Screening for prostate cancer Start: 03-24-2024 End: 03-24-2024 ambulatory CATHLEEN MALIK Not Available Start: 03-24-2024 End: 03-24-2024 Bamboo flowsheet Cathleen Malik [employer] Work Phone: [facility] Start: 03-24-2024 End: 03-24-2024 Bamboo flowsheet Cathleen Grimesk [employer] Work Phone: [facility] Start: 03-24-2024 End: 03-25-2024 Refill Cathleen Malik [employer] Work Phone: [facility] Comment on above: Type 2 diabetes carine itus without complication, without long- term current use of insulin ([facility]) Start: 09-07-2023 Orders Only Shaikh Leanna WYNNE [...] current use of insulin (CMS/HCC) Start: 08-27-2023 Bamboo flowsheet Shaikh Leanna WYNNE Work Phone: [facility] Start: 08-27-2023 Bamboo flowsheet Shaikh Leanna WYNNE Work Phone: [facility] Start: 03-09-2023 End: 03-09-2023 ambulatory Ban Heaton Other [facility] Other Start: 03-09-2023 Office outpatient vi sit 15 minutes Ban Heaton [facility] Start: 10-08-2022 End: 10-09-2022 ambulatory SHAIKH Shadi ADAMSJose Guadalupe Facility:H1 Start: 11-21-2021 ambulatory SHAIKH Shadi ADAMSJose Guadalupe Facilit y:H1 Start: 07-12-2021 (URG) Urgent Care Visit Ema veliz [facility] Start: 07-12-2021 End: 07-12-2021 ambulatory Ema Mitchell Other [facility] Other Procedures Date Procedure Procedure Detail Performing Clinician Start: 01-17-2025 CT CHEST W CONTRAST Felisa a Alfred [employer] Work Phone: Start: 01-17-2025 RT PULMONARY FUNCTIO N TEST Onelia Simon [employer] Work Phone: Start: 01-17-2025 ALL HEMOGLOBIN Onelia Luis varner [employer] Work Phone: Start: 01-04-2025 CA ECHO DOPPLER COMPLETE Onelia Alfred [employer] Work Phone: Start: 01-04-2025 TBH VITAMIN D 25 [place] Felisa delatorre Alfred [employer] Work Phone: Start: 12-27-2024 ALL BASIC METABOLIC PANEL Onelia Alfred [employer] Work Phone: Start: 12-14-2024 Hemoglobin glycosyla faiza a1c Onelia Alfred [employer] Work Phone: Start: 07-06-2024 End: 07-06-2024 Psychiatric diagnostic evaluation Moderate episode of recurrent major depressive disorder (CMS/HCC) Ira Cr LPC Comment on above: Moderate episode of recurrent major depressive disorder (CMS/HCC) Start: 05-05-2024 Colonoscopy Cathleen orellana [employer] Work Phone: Start: 04-28-2024 Screening colonoscopy Start: 02-16-2020 Colonoscopy Shaikh Natan mayer MD Work Phone: Plan of Treatment Date Care Activity Detail Author Start: 05-05-2034 Screening for malign ant neoplasm of colon [facility] Start: 02-15-2030 Screening for malign ant neoplasm of colon [facility] Start: 01-17-2026 End: 01-17-2026 Patient encounter procedure 01/17/2026 5:00 PM EDT Office Visit [facility] [address] [place] [address] Onelia Simon NP [address] [place] [address] [facility] Start: 01-11-2026 Medicare Annual Well ness (AWV) Medicare Annual Wellness (AWV) [facility] Start: 06-26-2025 Glaucoma screening Diabetes: R etinopathy Screening [facility] Start: 03-16-2025 Hemoglobin A1c measurement Diabetes: Hemoglobin A1C [facility] Start: 03-14-2025 End: 03-14-2025 Patient encounter procedure 03/14/2025 2:00 PM EDT Office Visit [facility] [address] [place] [address] Onelia Simon NP [address] [place] [phone] [facility] Start: 03-07-2025 End: 01-05-2026 25-hydroxyvitamin D3 [Mass/volume] in Serum or Plasma Vitamin D 25 hydroxy Lab Routine Vitamin D deficiency Hypercalcemia Expected: 03/07/2025 (Approximate), Expires: 01/05/2026 [facility] Comment on above: Expected: 03/07/2025 (Approximate), Expires: 01/05/2026 Start: 03-07-2025 End: 01-05-2026 Basic metabolic 1998 panel - Serum or Plasma Basic metabolic panel Lab Routine Vitamin D deficiency Hypercalcemia Expected: 03/07/2025 (Approximate), Expires: 01/05/2026 [facility] Work Phone: Comment on above: Expected: 03/07/2025 (Approximate), Expires: 01/05/2026 Start: 03-02-2025 Urine screening for protein Diabetes: Urine Protein Screening [facility] Start: 01-25-2025 End: 01-25-2025 Patient encounter procedure 01/25/2025 1:40 PM EDT Office Visit [facility] [address] [place] [address] Onelia Simon NP [address] [place] [address] [facility] Start: 01-17-2025 End: 01-17-2026 CT Abdomen WO and W contrast IV CT abdomen w and wo IV contrast Imaging Routine Adrenal nodule (HCC) Expected: 01/17/2025, Expires: 01/17/2026 [facility] Comment on above: Expected: 01/17/2025 , Expires: 01/17/2026 Start: 01-17-2025 End: 01-17-2026 US Thyroid gland US thyroid Imaging Routine Thyroid nodule Expected: 01/17/2025 (Approximate), Expires: 01/17/2026 [facility] Work Phone: Comment on above: Expected: 01/17/2025 (Approximate), Expires: 01/17/2026 Start: 01-11-2025 End: 01-11-2025 Patient encounter procedure 01/11/2025 2:20 PM EDT Office Visit [facility] [address] [place] [address] Onelia Simon, [employer] [address] [place] [phone] [facility] Start: 01-11-2025 End: 01-11-2026 Creatinine [Mass/volume] in Serum or Plasma Creatinine Lab Routine Primary hypertension Type 2 diabetes mellitus without complication, without long-term current use of insulin (HCC) IQBAL (dyspnea on exertion) Expected: 01/11/2025 (Approximate), Expires: 01/11/2026 [facility] Comment on above: Expected: 01/11/2025 (Approximate), Expires: 01/11/2026 Start: 01-11-2025 End: 01-11-2026 CT Chest W contrast IV CT chest w IV contrast Imaging Routine Dyspnea on exertion Expected: 01/11/2025 (Approximate), Expires: 01/11/2026 [facility] Work Phone: Comment on above: Expected: 01/11/2025 (Approximate), Expires: 01/11/2026 Start: 01-11-2025 End: 01-11-2026 Pulmonary function report Pulmonary Function Test Imaging Routine Dyspnea on exertion Expected: 01/11/2025 (Approximate), Expires: 01/11/2026 [facility] Comment on above: Expected: 01/11/2025 (Approximate), Expires: 01/11/2026 Start: 12-14-2024 End: 12-14-2025 Basic metabolic 1998 panel - Serum or Plasma Basic metabolic panel Lab Routine Primary hypertension (CMS/HCC) Type 2 diabetes mellitus without complication, without long-term current use of insulin Expected: 12/14/2024 (Approximate), Expires: 12/14/2025 [facility] Work Phone: Comment on above: Expected: 12/14/2024 (Approximate), Expires: 12/14/2025 Start: 12-14-2024 End: 12-14-2026 Echocardiogram 2D complete Echocardiogram 2D complete Echocardiography Routine JEFF (obstructive sleep apnea) Primary hypertension (CMS/HCC) Dyspnea on exertion Bilateral lower extremity edema Expected: 12/14/2024 (Approximate), Expires: 12/14/2026 [facility] Comment on above: Expected: 12/14/2024 (Approximate), Expires: 12/14/2026 Start: 12-14-2024 End: 12-14-2025 XR Chest 2 Views XR chest 2 views Imaging Routine Dyspnea on exertion Bilateral lower extremity edema Expected: 12/14/2024 (Approximate), Expires: 12/14/2025 [facility] Comment on above: Expected: 12/14/2024 (Approximate), Expires: 12/14/2025 Start: 12-14-2024 End: 12-14-2024 Patient encounter procedure 12/14/2024 1:20 PM EDT Office Visit [facility] [address] [place] [phone] Onelia Simon NP [address] [place] [phone] JEFF (obstructive sleep apnea) (Primary Dx); Primary hypertension (CMS/HCC); Class 3 severe obesity due to excess calories without serious comorbidity with body mass index (BMI) of 50.0 to 59.9 in adult; Type 2 diabetes mellitus without complication, without long-term current use of insulin [facility] Comment on above: JEFF (obstructive sle ep apnea) (Primary Dx); Primary hypertension (CMS/HCC); Class 3 severe obesity due to excess calories without serious comorbidity with body mass index (BMI) of 50.0 to 59.9 in adult; Type 2 diabetes mellitus without complication, without long-term current use of insulin Start: 12-12-2024 End: 12-12-2024 Patient encounter procedure 12/12/2024 3:00 PM EDT Office Visit [facility] [address] [place] [address] Cathleen Malik, ELVIA [address] [place] [address] [facility] Start: 10-27-2024 End: 10-27-2024 Patient encounter procedure 10/27/2024 1:50 PM EDT Procedure Visit [facility] [address] [facility] [address] [place] [phone] Emmanuel Wyatt DPM [address] [address] [facility] Start: 09-16-2024 Hemoglobin A1c measurement Diabetes: Hemoglobin A1C [facility] Start: 09-13-2024 End: 09-13-2024 Patient encounter procedure [facility] Comment on above: Arrived Start: 08-18-2024 End: 08-18-2024 Patient encounter procedure 08/18/2024 1:40 PM EST Office Visit [facility] [address] [place] [address] [place] [address] Emmanuel Wyatt DPM [address] [address] Type 2 diabetes mellitus without complication, without long-term current use of insulin (CMS/HCC) (Primary Dx); Pain due to onychomycosis of toenails of both feet; Hallux rigidus of left foot; Hallux rigidus of right foot; Venous insufficiency [facility] Comment on above: Type 2 diabetes carine itus without complication, without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 immunization against influenza Need for [...] (BMI) of 50.0 to 59.9 in adult ([facility]) Type 2 diabetes mellitus without complication, without [...] (BMI) of 50.0 to 59.9 in adult ([facility]) Type 2 diabetes mellitus without complication, without long-term current use of insulin (HCC) IQBAL (dyspnea on exertion) Other dyspnea and respiratory abnormality Dyspnea on exertion Other dyspnea and respiratory abnormality documented in this encounter [facility] HealthcareEvaluation note* Diagnosis Chronic pain of [...] (BMI) of 50.0 to 59.9 in adult ([facility]) Type 2 diabetes mellitus without complication, without [...] (BMI) of 50.0 to 59.9 in adult ([facility]) Need for immunization against influenza Need for [...] (BMI) of 50.0 to 59.9 in adult ([facility]) Type 2 diabetes mellitus without complication, without [...] (BMI) of 50.0 to 59.9 in adult ([facility]) Type 2 diabetes mellitus without complication, without long-term current use of insulin (HCC) IQBAL (dyspnea on exertion) Other dyspnea and respiratory abnormality Dyspnea on exertion Other dyspnea and respiratory abnormality Thyroid nodule- Primary Nontoxic uninodular goiter Adrenal nodule (HCC) Benign neoplasm of adrenal gland documented in this encounter [facility] HealthcareHistory and physical note Author Van Trinh [facility] April 28, 2024 10:05am Note Date/Time April 28, 2024 10 :05am [facility] [address] [place] [address] Gastroenterology H&P Signed Patient: Rigo Bolaños JR MR #: [id number] : 1955 Acct:[id number] Age/Sex: 68 / M Adm Date: 4 Loc: Room: Type: [facility] Attending Dr: Van Trinh MD Copies to: [...] signed by Van Trinh MD> 04/28/24 1005 [facility] Work Phone: History general Narrative - Reported* Type Description Date Medical History Hypertension Medical History hyperlipidemia Medical History type II diabetes [facility] Other Hospital Discharge instructions Additional Instructions DISCHARGE [...] NOT operate machinery such as power tools, [employer] mowers, snow blowers, sewing machines, etc. for [...] needed. -Follow up with PCP. -Office number [phone].[facility] Work Phone: Reason for referral (narrative)* Consultation (Routine) - Pending Review Specialty Diagnoses / Procedures Referred By Zoila whiteside Referred To Contact Podiatry Diagnoses Type 2 diabetes mellitus without complication, without long-term current use of insulin ([facility]) Procedures [place] OFFICE/OUTPATIENT NEW HIGH MDM 60 MINUTES Cathleen Malik NP [address] [place] [address] Emmanuel Wyatt DPM [address] [place] [address] Referral ID Status Reason Start Date Expiration Date Visits Requested Visits Authorized [id number] Pending Review Specialty Services Required 03/24/2024 09/20/2024 1 1 * Consultation (Routine) - Authorized Specialty Diagnoses / Procedures Referred By Zoila whiteside Referred To Contact Gastroenterology Diagnoses Screening for colon cancer Procedures [place] OFFICE/OUTPATIENT NEW HIGH MDM 60 MINUTES Cathleen Malik NP [address] [facility] [place] [address] Van Trinh MD [address] [address] Referral ID Status Reason Start Date Expiration Date Visits Requested Visits Authorized [id number] Authorized Specialty Services Required 03/24/2024 09/20/2024 1 1 [facility] Summary Purpose Family History Relationship Condition Age at Onset Recorded Date/T shamika father Malignant neoplasm of colon Unknown Diabetes mellitus Unknown Unknown Cerebrovascular accident (CVA) Unknown mother Diabetes mellitus Unknown family member Malignant neoplasm of colon Unknown Advance Directives Advance Directive Response Recorded Date/ Time Advance Directives No August 14, 2017 5:50pm Reason for Referral Specialty Diagnoses / Procedures Referred By Zoila whiteside Referred To Contact Diagnoses IQBAL (dyspnea on exertion) Procedures STRESS NUCLEAR MEDICINE Shaikh Solorio MD [address] [facility] [place] [address] [facility] [address] [place] [address] Phone: [phone] Referral ID Status Reason Start Date Expiration Date V isits Requested Visits Authorized [id number] Pending Review 08/27/2023 02/23/2024 3 3 Chief Complaint and Reason for Visit Chief Complaint Screening for colon cancer Screening for colon cancer Additional Source Comments REASON FOR VISIT (unrecogniz ed section and content) Reason Comments Travel Consult Reason Onset Date Comments Med Refill 05/11/2024 Reason Comments Follow-up Reason Comments Depression Specialty Diagnoses / Procedures Referred By Zoila whiteside Referred To Contact Behavioral Health Diagnoses Moderate episode of recurrent major depressive disorder (CMS/HCC) Procedures [place] OFFICE/OUTPATIENT [facility] Cathleen Malik NP [address] [place] [address] Phone: tel: fax: [facility] [address] [place] [address] Phone: tel: fax: Referral ID Status Reason Start Date Expiration Date Visits Requested Visits Authorized [id number] Authorized Specialty Services Required 4 12/13/2024 52 52 Reason Comments Follow-up Reason Comments Med Change Request Reason Comments DM Foot Care DM NAIL/ BL CALLOUS Specialty Diagnoses / Procedures Referred By Zoila whiteside Referred To Contact Podiatry Diagnoses Type 2 diabetes mellitus without complication, without long-term current use of insulin ([facility]) Procedures [place] OFFICE/OUTPATIENT [facility] 60 MINUTES Cathleen Malik NP [address] [facility] [place] [address] Emmanuel Wyatt DPM [address] [place] [address] Referral ID Status Reason Start Date Expiration Date V isits Requested Visits Authorized [id number] Closed Specialty Services Required 03/24/2024 09/20/2024 1 [...] CREATED AUTHOR AUTHOR'S ORGANIZ ATION 05/11/2024 [facility] DATE CREATED AUTHOR AUTHOR'S ORGANIZ ATION 01/14/2025 [facility] dical Specialists EPIC Care Teams (unrecognized sec tion and content) Bottle Hop Relationship Specialty Start Date End Date Shaikh Ram MD [address] [place] [address] PCP - General Internal Medicine 08/26/23 Bottle Hop Relationship Specialty Start Date End Date Shaikh Ram MD [address] [place] [address] PCP - General Internal Medicine 08/26/23 Bottle Hop Relationship Specialty Start Date End Date Shaikh Ram MD [address] [place] [address] PCP - General Internal Medicine 08/26/23 Team [...] Other Provider Active Start: April 28, 2024 Bottle Hop Relationship Specialty Start Date End Date Bakari Bhat MD [address] [place] [address] PCP - General Family Medicine 02/29/24 Cathleen Malik NP [address] [place] [address] Nurse Practitioner Family Medicine 02/29/24 Bottle Hop Relationship Specialty Start Date End Date Bakari Bhat MD [address] [place] [address] PCP - General Family Medicine 02/29/24 Cathleen Malik NP [address] [place] [address] Nurse Practitioner Family Medicine 02/29/24 Bottle Hop Relationship Specialty Start Date End Date Bakari Bhat MD [address] [place] [address] PCP - General Family Medicine 02/29/24 Cathleen Malik NP [address] [place] [address] Nurse Practitioner Family Medicine 02/29/24 Bottle Hop Relationship Specialty Start Date End Date Bakari Bhat MD [address] [place] [address] PCP - General Family Medicine 02/29/24 Cathleen Malik NP [address] [place] [address] Nurse Practitioner Family Medicine 02/29/24 Bottle Hop Relationship Specialty Start Date End Date Bakari Bhat MD [address] [place] [address] PCP - General Family Medicine 02/29/24 Cathleen Malik NP [address] [place] [address] Nurse Practitioner Family Medicine 02/29/24 Bottle Hop Relationship Specialty Start Date End Date Bakari Bhat MD [address] [place] [address] PCP - General Family Medicine 02/29/24 Cathleen Malik NP [address] [place] [address] Nurse Practitioner Family Medicine 02/29/24 Bottle Hop Relationship Specialty Start Date End Date Bakari Bhat MD [address] [place] [address] PCP - General Family Medicine 02/29/24 Cathleen Malik NP [address] [place] [address] Nurse Practitioner Family Medicine 02/29/24 Bottle Hop Relationship Specialty Start Date End Date Bakari Bhat MD [address] [place] [address] PCP - General Family Medicine 02/29/24 Cathleen Malik NP [address] [place] [address] Nurse Practitioner Family Medicine 02/29/24 Bottle Hop Relationship Specialty Start Date End Date Bakari Bhat MD [address] [place] [address] PCP - General Family Medicine 02/29/24 Cathleen Malik NP [address] [place] [address] Nurse Practitioner Family Medicine 02/29/24 Bottle Hop Relationship Specialty Start Date End Date Bakari Bhat MD [address] [place] [address] PCP - General Family Medicine 02/29/24 Cathleen Malik NP [address] [place] [address] Nurse Practitioner Family Medicine 02/29/24 Bottle Hop Relationship Specialty Start Date End Date Bakari Bhat MD [address] [place] [address] PCP - General Family Medicine 02/29/24 Cathleen Malik NP [address] [place] [address] Nurse Practitioner Family Medicine 02/29/24 Bottle Hop Relationship Specialty Start Date End Date Bakari Bhat MD [address] [place] [address] PCP - General Family Medicine 02/29/24 Cathleen Malik NP [address] [place] [address] Nurse Practitioner Family Medicine 02/29/24 Bottle Hop Relationship Specialty Start Date End Date Bakari Bhat MD [address] [place] [address] PCP - General Family Medicine 02/29/24 Cathleen Malik NP [address] [place] [address] Nurse Practitioner Family Medicine 02/29/24 Bottle Hop Relationship Specialty Start Date End Date Bakari Bhat MD [address] [place] [address] PCP - General Family Medicine 02/29/24 Cathleen Malik NP [address] [place] [address] Nurse Practitioner Family Medicine 02/29/24 Ira Cr LPC Society Editor Behavioral Health 08/31/24 Bottle Hop Relationship Specialty Start Date End Date Bakari Bhat MD [address] [place] [address] PCP - General Family Medicine 02/29/24 Cathleen Malik NP [address] [place] [address] Nurse Practitioner Family Medicine 02/29/24 Ira Cr LPC Society Editor Behavioral Health 08/31/24 Bottle Hop Relationship Specialty Start Date End Date Bakari Bhat MD [address] [place] [address] PCP - General Family Medicine 02/29/24 Cathleen Malik NP [address] [place] [address] Nurse Practitioner Family Medicine 02/29/24 Ira Cr LPC Society Editor Behavioral Health 08/31/24 Bottle Hop Relationship Specialty Start Date End Date Bakari Bhat MD [address] [place] [address] PCP - General Family Medicine 02/29/24 Cathleen Malik NP [address] [place] [address] Nurse Practitioner Family Medicine 02/29/24 Ira Cr LPC Society Editor Behavioral Health 08/31/24 Bottle Hop Relationship Specialty Start Date End Date Bakari Bhat MD [address] [place] [address] PCP - General Family Medicine 02/29/24 Cathleen Malik NP [address] [place] [address] Nurse Practitioner Family Medicine 02/29/24 Ira Cr LPC Society Editor Behavioral Health 08/31/24 Bottle Hop Relationship Specialty Start Date End Date Bakari Bhat MD [address] [place] [address] PCP - General Family Medicine 02/29/24 Cathleen Malik NP [address] [place] [address] Nurse Practitioner Family Medicine 02/29/24 Ira Cr LPC Society Editor Behavioral Health 08/31/24 Bottle Hop Relationship Specialty Start Date End Date Bakari Bhat MD [address] [place] [address] PCP - General Family Medicine 02/29/24 Cathleen Malik NP [address] [place] [address] Nurse Practitioner Family Medicine 02/29/24 Ira Cr [facility] Society Editor Behavioral Health 08/31/24 Bottle Hop Relationship Specialty Start Date End Date Bakari Bhat MD [address] [place] [address] PCP - General Family Medicine 02/29/24 Cathleen Malik NP [address] [place] [address] Nurse Practitioner Family Medicine 02/29/24 Ira Cr [facility] Society Editor Behavioral Health 08/31/24 Bottle Hop Relationship Specialty Start Date End Date Bakari Bhat MD [address] [place] [address] PCP - General Family Medicine 02/29/24 Cathleen Malik NP [address] [place] [address] Nurse Practitioner Family Medicine 02/29/24 Ira Cr [facility] Society Editor Behavioral Health 08/31/24 Bottle Hop Relationship Specialty Start Date End Date Bakari Bhat MD [address] [place] [address] PCP - General Family Medicine 02/29/24 Cathleen Malik NP [address] [place] [address] Nurse Practitioner Family Medicine 02/29/24 Ira Cr LPC Society Editor Behavioral Health 08/31/24 Bottle Hop Relationship Specialty Start Date End Date Bakari Bhat MD [address] [place] [address] PCP - General Family Medicine 02/29/24 Cathleen Malik NP [address] [place] [address] Nurse Practitioner Family Medicine 02/29/24 Ira Cr LPC Society Editor Behavioral Health 08/31/24 Bottle Hop Relationship Specialty Start Date End Date Bakari Bhat MD [address] [place] [address] PCP - General Family Medicine 02/29/24 Cathleen Malik NP [address] [place] [address] Nurse Practitioner Family Medicine 02/29/24 Ira Cr LPC Society Editor Behavioral Health 08/31/24 Bottle Hop Relationship Specialty Start Date End Date Bakari Bhat MD [address] [place] [address] PCP - General Family Medicine 02/29/24 Cathleen Mlaik NP [address] [place] [address] Nurse Practitioner Family Medicine 02/29/24 Ira Cr LPC Society Editor Behavioral Health 08/31/24 FOR RECORDS PERTAINING TO [...] BE BASED ON THE PRIMARY CLINICAL RECORDS. [facility] [employer] [facility]. provides no warranty or guarantee of the accuracy or completeness of information in this document.
--- NOTE | 2025-01-20 07:49 | US_ITS ---
The [address] [address] Patient Name: SHANNON DANIELS MRN: [id number] date: 1955 Sex: M Assigned Patient Location: CT Current Patient Location: CT Accession/Order Number: [id number] Exam Date: 01/20/2025 09:20 Report Date: 01/20/2025 09:25 At the request of: STEWART FLYNN NP Procedure: US thyroid THYROID ULTRASOUND CLINICAL DATA: Thyroid nodule seen on CT COMPARISON: CT chest 01/17/2025 The right thyroid lobe measures 5.9 x 3.0 x 2.4 cm. The left lobe measures 4.5 x 1.8 x 2.1 cm. The isthmus measures 3 - 4 mm. Thyroid echotexture is mildly heterogeneous. At the mid to lower pole on the right, there is a mixed echogenicity nodule with hyperechoic foci (TI-RADS 5) measuring 3.0 x 2.9 x 2.2 cm. At the inferior pole on the left, there is a hypoechoic nodule measuring 1.6 x 1.3 x 1.8 cm (TI-RADS 4). US/US thyroid IMPRESSION: BILATERAL MODERATELY SUSPICIOUS THYROID NODULES. BIOPSY IS SUGGESTED. Impression dictated by: Krystal Maurice M.D. 01/20/2025 9:25 AM Dictation Location: [place] [address] Electronically authenticated by: [id number] Y Date: 01/20/2025 09:25
== END 2025-01-20 07:40 | disposition home or self-care (01) ==
LOC: CT 07:39
PROVIDERS: PCP Nurse Practitioner; Visit Provider Nurse Practitioner
DX: E27.9 Disorder of adrenal gland, unspecified (principal); K76.0 Fatty (change of) liver, not elsewhere classified; N20.0 Calculus of kidney; E07.9 Disorder of thyroid, unspecified
CPT/HCPCS: 74170; 76536; Q9967

== ENCOUNTER 2025-02-22 10:17 | Emergency (ER) | payer MEDICARE, SELFPAY ==
--- OUTSIDE RECORDS SUMMARY | 2025-02-22 09:40 | XMS_ITS | Encounter Summary ---
Author Organization [facility] Address [address] [place] [address] Care Team Providers Care Full Time Name Role Phone Bakari Bhat MD Primary Care Provider [phone] Cathleen Malik PRINCIPAL STATISTICAL SCIENTIST Unavailable Reason for Visit * Reason Comments Dyspnea on exertion Encounter Details Date Type Department Care Team (Late st Contact Info) Description 02/22/2025 9:40 AM EDT [facility] [address] [place] [address] Onelia Simon NP [address] [place] [address] Generalized abdominal pain (Primary Dx); Primary hypertension ; Class 3 severe obesity due to excess calories without serious comorbidity with body mass index (BMI) of 50.0 to 59.9 in adult ([facility]) Social History Tobacco Use Types Packs/Day Years [...] Sign Reading Time Taken Comments Blood Pressure 168/98 02/22/2025 9:47 AM EDT Pulse 87 02/22/2025 9:47 AM EDT Temperature 36.9 C (98.5 F) 02/22/2025 9:47 AM EDT Respiratory Rate 24 02/22/2025 9:47 AM EDT Oxygen Saturation 96% 02/22/2025 9:47 AM EDT Inhaled Oxygen Concentration - - Weight 143 kg (314 lb 3.2 oz) 02/22/2025 9:47 AM EDT Height - - Body Mass Index 50.71 09/13/2024 3:36 PM EST documented in this encounter Patient Instructions * Patient Instructions* Onelia Simon NP - 02/22/2025 9:40 AM EDT Go to ER documented in this encounter Progress Notes * Onelia Simon NP - 02/22/2025 10:10 AM EDTAssociated Problem(s): Generalized abdominal pain Sxs not better no significant results with mag citrate More distended Will send to [facility] ER for evaluation * Onelia Simon NP - 02/22/2025 10:09 AM EDTAssociated Problem(s): Class 3 severe obesity due to excess calories without serious comorbidity with body mass index (BMI) of 50.0 to 59.9 in adult ([facility]) Discussed with patient their BMI (actual, verses recommended). We have also discussed lifestyle modifications: attempts to perform physical activity as chronic conditions allow, also to monitor dietary intake: increasing protein/fruits/veggies and lowering carb intake (unless contraindicated). Limit sodas, juices, and sugary drinks. Currently prescribed ozempic * Onelia Simon NP - 02/22/2025 10:09 AM EDTAssociated Problem(s): Primary hypertension Please check blood pressure daily and record DASH diet Limit caffeine Take medication as directed Contact office if chest pain, pressure, dizziness, shortness of breath, swelling legs Recommend slow position changes Current meds: b joaquin, lisinopril/hydrochlorothiazide Normally controlled, elevated today d/t pain * KVNG INMAN - 02/22/2025 9:40 AM EDT Pt had BM yesterday however it was all watery and he has abd cramping * Onelia Simon NP - 02/22/2025 9:40 AM EDT Images from the original note were not included. Rigo Elmore Bolaños is a 69 y.o. male presents with chief complaint of Dyspnea on exertion HPI: Here for check up of abd pain/inability to have normal bowel movement: Was on vacation in [place] for 3 weeks, came back on 02/18/25 While down there eating no issues and bowel movements no problems Since Saturday 02/17 no BM, he has tried miralax, and mag citrate no help, sharp lower abd pain, abd feels swollen, pain 5/10 No fever, no [place] no blood He is here today because he is feeling worse, no hx bowel obstruction SUBJECTIVE: MEDICATIONS: Current Outpatient Medications Medication Instructions aspirin 81 mg, Oral, Daily RT carvedilol (COREG) 12.5 mg, Oral, Every 12 hours Continuous Glucose Hunting And Fishing Guide (FreeStyle [place] 3 [place]) device 1 each, Does not apply, Continuous [...] for pain, discharge and visual disturbance. Respiratory: Negative for apnea, chest tightness and wheezing. Cardiovascular: Negative for leg swelling. Gastrointestinal: Positive for abdominal distention, abdominal pain and constipation. Negative for blood in stool and diarrhea. Genitourinary: Negative for decreased urine [...] (BMI) of 50.0 to 59.9 in adult ([facility]) 07/09/2023 Depression Diabetes mellitus, type II ([facility]) History of medical problems BL [...] father and mother. OBJECTIVE: Visit Vitals BP (!) 168/98 (BP Location: Left arm, Patient Position: Sitting, BP Cuff Size: Large adult) Pulse 87 Temp 98.5 ??F (Temporal) Resp 24 Wt 314 lb 3.2 oz SpO2 96% BMI 50.71 kg/m?? Smoking Status Never BSA 2.58 m?? Physical Exam Vitals and nursing note reviewed. Constitutional: General: He is not in acute distress. Appearance: Normal appearance. He is obese. He is not ill-appearing. HENT: Head: Normocephalic. Right Ear: External ear [...] normal. Breath sounds: Normal breath sounds. No wheezing. Abdominal: General: There is distension. Tenderness: There is abdominal tenderness. Comments: Tinkling bowel sounds throughout Mod tenderness with palpation Musculoskeletal: Cervical back: Neck supple. Right lower leg: Edema present. Left lower leg: Edema present. Comments: Trace -1+ Skin: General: Skin is warm and dry. Capillary Refill: Capillary refill takes 2 to 3 seconds. Neurological: General: No focal deficit present. Mental Status: He is alert. Psychiatric: Mood and Affect: Mood normal. Behavior: Behavior normal. Thought Content: Thought content normal. Judgment: Judgment normal. ASSESSMENT AND PLAN: No follow-ups on file. Problem List Items Addressed This Visit Class 3 severe obesity due to excess calories without serious comorbidity with body mass index (BMI) of 50.0 to 59.9 in adult ([facility]) Discussed with patient their BMI (actual, verses recommended). We have also discussed lifestyle modifications: attempts to perform physical activity as chronic conditions allow, also to monitor dietary intake: increasing protein/fruits/veggies and lowering carb intake (unless contraindicated). Limit sodas, juices, and sugary drinks. Currently prescribed ozempic Primary hypertension - Primary Please check blood pressure daily and record DASH diet Limit caffeine Take medication as directed Contact office if chest pain, pressure, dizziness, shortness of breath, swelling legs Recommend slow position changes Current meds: b joaquin, lisinopril/hydrochlorothiazide Normally controlled, elevated today d/t pain Generalized abdominal pain Sxs not better no significant results with mag citrate More distended Will send to [facility] ER for evaluation documented in this encounter Plan of Treatment Upcoming Encounters Date Type Department Care Team (Late st Contact Info) Description 03/14/2025 2:00 PM EDT Office Visit [facility] [address] [place] [address] Onelia Simon NP [address] [place] [address] 01/17/2026 5:00 PM EDT [facility] [address] [place] [address] Onelia Simon NP [address] [place] [address] documented as of this encounter Visit Diagnoses Diagnosis Generalized abdominal pain- Primary Abdominal pain, generalized Primary hypertension Unspecified essential hypertension Class 3 severe obesity due to excess calories without serious comorbidity with body mass index (BMI) of 50.0 to 59.9 in adult ([facility]) documented in this encounter Additional Health Concerns Assessment Noted Time PHQ-9 Depression Total Score: 15 024 3:36 PM EST documented as of this encounter Care Teams Full Time Relationship Specialty Start Date End Date Bakari Bhat MD [address] [place] [address] PCP - General Family Medicine 02/29/24 Cathleen Malik NP [address] [place] [address] Nurse Practitioner Family Medicine 02/29/24 documented as of this encounter
[2025-02-22 10:30] VITALS: BP 176/103; PULSE 89; TEMP 36.8; O2SAT 95; BMI 50.8
--- OUTSIDE RECORDS SUMMARY | 2025-02-22 10:32 | XMS_ITS | Encounter Summary ---
Author Organization [facility] Address [address] [place] [address] Care Team Providers Care Charge Account Authorizer Name Role Phone Shaikh RICCI Ram Primary Care Provider Shaikh RICCI Ram Primary Care Provider Bakari Bhat MD Primary Care Provider Cathleen Malik [employer]OP [employer]ARMERS Unavailable [phone] Faisal Cr LPC Unavailable Unavailable Encounter Details Date Type Department Care Team (Late st Contact Info) Description 06/23/2023 Orders Only [facility] [address] [place] [address] Shaikh Ram MD [address] [place] [address] Social History Tobacco Use Types Packs/Day Years [...] Visit [facility] [address] [place] [address] Onelia Simon NP [address] [place] [address] 01/17/2026 5:00 PM EDT Office Visit [facility] [address] [place] [address] Onelia Simon NP [address] [place] [address] documented as of this encounter Visit Diagnoses Not on filedocumented in this encounter Care Teams Charge Account Authorizer Relationship Specialty Start Date End Date Shaikh Ram MD PCP - General Internal Medicine 07/27/22 08/25/23 Shaikh Ram MD [address] [place] [address] PCP - General Internal Medicine 08/26/23 02/28/24 Bakari Bhat MD [address] [place] [address] PCP - General Family Medicine 02/29/24 Cathleen Malik NP [address] [place] [address] Nurse Practitioner Family Medicine 02/29/24 Faisal Cr LPC Events Director Behavioral Health 08/31/24 01/23/25 documented as of this encounter
--- OUTSIDE RECORDS SUMMARY | 2025-02-22 10:32 | XMS_ITS | Encounter Summary ---
Author Organization [facility] Address [address] [place] [address] Care Team Providers Care Inspector Balance Wheel Motion Name Role Phone Shaikh RICCI Ram Primary Care Provider [phone] Bakari Bhat MD Primary Care Provider Cathleen Malik REINSURANCE CLAIMS ANALYST Unavailable [phone] Faisal Cr LPC Unavailable Unavailable Encounter Details Date Type Department Care Team (Late st Contact Info) Description 10/08/2023 Clinisync Result Encounter [facility] External Department Unsolicited Shaikh Ram MD [address] [place] [address] Social History Tobacco Use Types Packs/Day Years [...] Office Visit [facility] [address] [place] [address] Onelia Simon NP [address] [place] [address] 01/17/2026 5:00 PM EDT Office Visit [facility] [address] [place] [address] Onelia Simon, ELVIA [address] [place] [address] documented as of this encounter Procedures Procedure Name Priority Date/Time Associated Diagnosis Comments NM GABI PERF SPECT REST STR 10/08/2023 9:32 AM EDT documented in this encounter Results * NM GABI PERF SPECT REST STR (10/08/2023 9:32 AM EDT) Anatomical Region Laterality Modality Other 10/08/2023 9:32 AM EDT Narrative 10/08/2023 9:33 [place] [address] Nuclear Medicine Report Signed Patient: RIGO BOLAÑOS MR#: [id number] : 1955 Acct:[id number] Age/Sex: 68 / M ADM Date: 10/05/23 Loc: [place] Attending Dr: Shaikh Leanna Holt Ordering Physician: Shaikh Yanet Ram Date of Service: 10/05/23 Procedure(s): NM gabi perf SPECT rest str Accession Number(s): [id number] cc: Shaikh Yanet Ram Patient Name: RIGO BOLAÑOS MR#: [id number] : 1955 Exam Date: 10/05/2023 Ordering Doctor: [...] M.D. Signed By: 10/08/23 0933 DD/ TD/TT: Copy Messenger: Procedure Note Radiology, Radiologist, MD - 10/08/2023 [place] [address] Nuclear Medicine Report Signed Patient: RIGO BOLAÑOS EMR#: [id number] : 1955cct:[id number] Age/Sex: 68 / MADM Date: 10/05/23 Loc: [place] Attending Dr: Shaikh Leanna Holt Ordering Physician: Shaikh Yanet Ram Date of Service: 10/05/23 Procedure(s): NM gabi perf SPECT rest str Accession Number(s): [id number] cc: Shaikh Yanet Ram Patient Name: RIGO BOLAÑOS MR#: [id number] : 1955 Exam Date: 10/05/2023 Ordering Doctor: [...] M.D. Signed By:10/08/23 0933 DD/ 0932 TD/TT: Copy Messenger: us Shaikh Leanna [facility] Final Result documented in this encounter Visit Diagnoses Not on filedocumented in this encounter Additional Health Concerns Assessment Noted Time PHQ-9 Depression Total Score: 15 024 3:36 PM EST documented as of this encounter Care Teams Inspector Balance Wheel Motion Relationship Specialty Start Date End Date Shaikh Ram MD [address] [place] [address] PCP - General Internal Medicine 08/26/23 02/28/24 Bakari Bhat MD [address] [place] [address] PCP - General Family Medicine 02/29/24 Cathleen Malik NP [address] [place] [address] Nurse Practitioner Family Medicine 02/29/24 Faisal Cr LPC Digital Recruiter Behavioral Health 08/31/24 01/23/25 documented as of this encounter
--- OUTSIDE RECORDS SUMMARY | 2025-02-22 10:32 | XMS_ITS | Encounter Summary ---
Author Organization [facility] Address [address] [facility] [place] [address] Care Team Providers Care Party Plan Sales Agent Name Role Phone Bakari Bhat MD Primary Care Provider [phone] Cathleen Malik MANAGER ELECTRONIC Unavailable [phone] Faisal Cr LPC Unavailable Unavailable Encounter Details Date Type Department Care Team (Late st Contact Info) Description 05/05/2024 [facility] [address] [place] [address] Van Trinh MD [address] [address] [place] [address] Social History Tobacco Use Types Packs/Day Years [...] Office Visit [facility] [address] [place] [address] Onelia Simon NP [address] [place] [address] 01/17/2026 5:00 PM EDT Office Visit [facility] [address] [place] [address] Onelia Simon NP [address] [place] [address] documented as of this encounter Procedures Procedure [...] documented as of this encounter Care Teams Party Plan Sales Agent Relationship Specialty Start Date End Date Bakari Bhat MD [address] [place] [address] PCP - General Family Medicine 02/29/24 Cathleen Malik NP [address] [place] [address] Nurse Practitioner Family Medicine 02/29/24 Faisal Cr LPC Life Advisor Behavioral Health 08/31/24 01/23/25 documented as of this encounter
--- OUTSIDE RECORDS SUMMARY | 2025-02-22 10:32 | XMS_ITS | Encounter Summary ---
Author Organization [facility] Address [address] [place] [address] Care Team Providers Care Broadcast Producer Name Role Phone Bakari Bhat MD Primary Care Provider [phone] Cathleen Malik NP Unavailable [phone] Faisal Cr LPC Unavailable Unavailable Encounter Details Date Type Department Care Team (Late st Contact Info) Description 03/25/2024 Abstract [facility] [address] [place] [address] Cathleen Malik NP Social History [...] Office Visit [facility] [address] [place] [address] Onelia Simon NP [address] [place] [address] 01/17/2026 5:00 PM EDT Office Visit [facility] [address] [place] [address] Onelia Simon, ELVIA [address] [place] [address] documented as of this encounter Visit Diagnoses Not on filedocumented in this encounter Additional Health Concerns Assessment Noted Time PHQ-9 Depression Total Score: 15 024 3:36 PM EST documented as of this encounter Care Teams Broadcast Producer Relationship Specialty Start Date End Date Bakari Bhat MD [address] [place] [address] PCP - General Family Medicine 02/29/24 Cathleen Malik NP [address] [place] [address] Nurse Practitioner Family Medicine 02/29/24 Faisal Cr LPC Sales Technician Home Theater Behavioral Health 08/31/24 01/23/25 documented as of this encounter
--- OUTSIDE RECORDS SUMMARY | 2025-02-22 10:32 | XMS_ITS | Encounter Summary ---
Author Organization [facility] Address [address] [place] [address] Care Team Providers Care Centrifugal Station Operator Name Role Phone Shaikh RICCI Ram Primary Care Provider Shaikh RICCI Ram Primary Care Provider [phone] Bakari Bhat MD Primary Care Provider [phone] Cathleen Malik REAL ESTATE VALUER Unavailable [phone] Faisal Cr LPC Unavailable Unavailable Encounter Details Date Type Department Care Team (Late st Contact Info) Description 07/22/2023 [facility] [address] [place] [address] Shaikh Ram MD [address] [place] [address] Social History Tobacco Use Types [...] Office Visit [facility] [address] [place] [address] Onelia Simon NP [address] [place] [address] 01/17/2026 5:00 PM EDT Office Visit [facility] [address] [place] [address] Onelia Simon NP [address] [place] [address] documented as of this encounter Procedures Procedure [...] on filedocumented in this encounter Care Teams Centrifugal Station Operator Relationship Specialty Start Date End Date Shaikh Ram MD PCP - General Internal Medicine 07/27/22 08/25/23 Shaikh Ram MD [address] [place] [address] PCP - General Internal Medicine 08/26/23 02/28/24 Bakari Bhat MD [address] [place] [address] PCP - General Family Medicine 02/29/24 Cathleen Malik NP [address] [place] [address] Nurse Practitioner Family Medicine 02/29/24 Faisal Cr LPC Licensed Professional Counselor Behavioral Health 08/31/24 01/23/25 documented as of this encounter
--- OUTSIDE RECORDS SUMMARY | 2025-02-22 10:32 | XMS_ITS | Encounter Summary ---
Author Organization [facility] Address [address] [place] [address] Care Team Providers Care Metal Base Blocker Name Role Phone Shaikh RICCI Ram Primary Care Provider [phone] Bakari Bhat MD Primary Care Provider Cathleen Malik RN EMERGENCY ROOM Unavailable [phone] Faisal Cr LPC Unavailable Unavailable Reason for Visit * Reason Comments Med Refill Encounter Details Date Type Department Care Team (Late st Contact Info) Description 09/04/2023 Refill [facility] [address] [place] [address] Shaikh Ram MD [address] [place] [address] Other specified anxiety disorders Social History Tobacco [...] [facility] [address] [place] [address] Onelia Simon NP [address] [place] [address] 01/17/2026 5:00 PM EDT Office Visit [facility] [address] [place] [address] Onelia Simon NP [address] [place] [address] documented as of this encounter Visit Diagnoses Diagnosis Other specified anxiety disorders documented in this encounter Additional Health Concerns Assessment Noted Time PHQ-9 Depression Total Score: 15 024 3:36 PM EST documented as of this encounter Care Teams Metal Base Blocker Relationship Specialty Start Date End Date Shaikh Ram MD [address] [place] [address] PCP - General Internal Medicine 08/26/23 02/28/24 Bakari Bhat MD [address] [place] [address] PCP - General Family Medicine 02/29/24 Cathleen Malik NP [address] [place] [address] Nurse Practitioner Family Medicine 02/29/24 Faisal Cr LPC Lounge Car Attendant Behavioral Health 08/31/24 01/23/25 documented as of this encounter
--- OUTSIDE RECORDS SUMMARY | 2025-02-22 10:32 | XMS_ITS | Encounter Summary ---
Author Organization [facility] Address [address] [place] [address] Care Team Providers Care Vessel Captain Name Role Phone Shaikh RICCI Ram Primary Care Provider Shaikh RICCI Ram Primary Care Provider Bakari Bhat MD Primary Care Provider [phone] Cathleen Malik CRUISE DIRECTOR Unavailable [phone] Faisal Cr LPC Unavailable Unavailable Reason for Visit * Reason Comments Med Refill Encounter Details Date Type Department Care Team (Late st Contact Info) Description 08/12/2023 Refill [facility] [address] [place] [id number] Shaikh Ram MD [address] [place] [id number] Other specified anxiety disorders Social History Tobacco [...] [facility] [address] [place] [address] Onelia Simon, ELVIA [address] [place] [phone] 01/17/2026 5:00 PM EDT Office Visit [facility] [address] [place] [phone] Onelia Simon, ELVIA [address] [place] [phone] documented as of this encounter Visit Diagnoses Diagnosis Other specified anxiety disorders documented in this encounter Care Teams Vessel Captain Relationship Specialty Start Date End Date Shaikh Ram MD PCP - General Internal Medicine 07/27/22 08/25/23 Shaikh Ram MD [address] [place] [phone] PCP - General Internal Medicine 08/26/23 02/28/24 Bakari Bhat MD [address] [place] [id number] PCP - General Family Medicine 02/29/24 Cathleen Malik NP [address] [place] [phone] Nurse Practitioner Family Medicine 02/29/24 Faisal Cr LPC Inspector Final Assembly [facility] 08/31/24 01/23/25 documented as of this encounter
--- OUTSIDE RECORDS SUMMARY | 2025-02-22 10:32 | XMS_ITS | Clinical Summary ---
Author Organization [facility] Healthcare Address [address] [place] [address] Care Team Providers Care Courier Delivery Driver Name Role Phone Bakari Bhat MD Primary Care Provider [phone] Cathleen Malik ELECTRO MECHANICAL ENGINEER Unavailable [phone] Allergies No known active allergies Medications latanoprost (Xalatan) 0.005 % ophthalmic solution Administer 1 drop into both eyes at bedtime 024 Active aspirin 81 MG EC tabletIndications :Type 2 diabetes mellitus without complication, without long-term current use of insulin (HCC) Take 1 tablet (81 mg) by mouth in the morning. 90 tablet 025 Active carvedilol (Coreg) 12.5 MG tabletIndications :Essential (primary) hypertension Take 1 tablet (12.5 mg) by mouth every 12 (twelve) hours 180 tablet 025 Active gabapentin (Neurontin) 100 MG capsuleIndication s:Type 2 diabetes mellitus with polyneuropathy (HCC) Take 1 capsule (100 mg) by mouth in the morning and 1 capsule (100 mg) before bedtime. 180 capsule 025 Active lisinopril-hydroC HLOROthiazide 20-25 MG tabletIndications :Essential (primary) hypertension Take 1 tablet by mouth Daily 90 tablet 025 Active Multiple Vitamin (Multivitamin Adult) tabletIndications :Type 2 diabetes mellitus without complication, without long-term current use of insulin (HCC) Take 1 each by mouth Daily 90 tablet 025 Active pravastatin (Pravachol) 40 MG tabletIndications :Hyperlipidemia, unspecified Take 1 tablet (40 mg) by mouth Daily 90 tablet 025 Active Continuous Glucose Superintendent Renting Managing (FreeStyle Anamaria 3 [place]) deviceIndications :Type 2 diabetes mellitus without complication, without long-term current use of insulin (HCC) 1 each continuously 1 each Active Continuous Glucose Sensor (FreeStyle Anamaria 3 Plus Sensor) miscIndications:T ype 2 diabetes mellitus without complication, without long-term current use of insulin (HCC) 1 each continuously 2 each 11 Active DULoxetine (Cymbalta) [address] capsuleIndication s:Moderate episode of recurrent major depressive disorder (HCC) Take 1 capsule (60 mg) by mouth Daily Do not crush or chew. 90 capsule 025 2024 Active methocarbamol (Robaxin) 750 MG tablet Take 750 mg by mouth every 8 (eight) hours Active etodolac (Lodine) 300 MG capsule TAKE 1 CAPSULE BY MOUTH EVERY 8 HOURS NEEDED FOR PAIN Active semaglutide (Ozempic, 1 MG/DOSE,) 4 MG/3ML solution pen-injectorIndic ations:Type 2 diabetes mellitus without complication, without long-term current use of insulin (HCC) Inject 1 mg under the skin 1 (one) time per week 9 mL 1 025 2024 Active metFORMIN (Glucophage) 1000 MG tabletIndications :Type 2 diabetes mellitus without complications (HCC) Take 1 tablet (1,000 mg) by mouth in the morning and 1 tablet (1,000 mg) before bedtime. 180 tablet 1 025 2024 Active metFORMIN (Glucophage) 1000 MG tabletIndications :Type 2 diabetes mellitus without complications (HCC) Take 1 tablet (1,000 mg) by mouth in the morning and 1 tablet (1,000 mg) before bedtime. 180 tablet 025 2024 Discontinued(R eorder) cholecalciferol (Vitamin D-3) 50 MCG (1999) tabletIndications :Vitamin D deficiency Take 1 tablet (50 mcg) by mouth Daily 30 tablet 2 025 2024 semaglutide (Ozempic, 1 MG/DOSE,) 4 MG/3ML solution pen-injectorIndic ations:Type 2 diabetes mellitus without complication, without long-term current use of insulin (HCC) Inject 1 mg under the skin 1 (one) time per week 9 mL 025 2024 Discontinued metFORMIN (Glucophage) 1000 MG tabletIndications :Type 2 diabetes mellitus without complications (HCC) Take 1 tablet (1,000 mg) by mouth in the morning and 1 tablet (1,000 mg) before bedtime. 180 tablet 025 2024 Discontinued(R eorder) Active Problems Problem Noted Date Diagnosed Date Generalized abdominal pain 02/22/2025 Assessment & Plan (02/22/2025 10:10 AM EDT): Sxs not better no significant results with mag citrate More distended Will send to [facility] ER for evaluation Adrenal mass, left 01/31/2025 Thyroid nodule 01/17/2025 Adrenal nodule 01/17/2025 Medicare [...] 03/24/2024 Primary hypertension 08/27/2023 Assessment & Plan (02/22/2025 10:09 AM EDT): Please check blood pressure daily and record DASH diet Limit caffeine Take medication as directed Contact office if chest pain, pressure, dizziness, shortness of breath, swelling legs Recommend slow position changes Current meds: b joaquin, lisinopril/hydrochlorothiazide Normally controlled, elevated today d/t pain Assessment & Plan (01/11/2025 7:42 AM EDT): [...] Recommend slow position changes Current meds: b joaqiun, lisinopril/hydrochlorothiazide Assessment & Plan (09/13/2024 4:00 PM [...] and has poor insight. He also saw local announcer before to help manage his meals, improve his diet. Tolerating meds w/o adverse effects Switch from trulicity to ozempic due to insurance prefera[ence. Check labs Assessment & Plan (08/27/2023 5:23 PM EST): Last A1C 7.1 06/18. On metformin and trulicity. Non compliant with diet and has poor insight. He also saw local announcer before to help manage his meals, improve his diet. Tolerating meds w/o adverse effects C/w same. Other acute sinusitis 07/09/2023 Non-seasonal allergic rhinitis 07/09/2023 Class 3 severe obesity due t o excess calories without serious comorbidity with body mass index (BMI) of 50.0 to 59.9 in adult 07/09/2023 Assessment & Plan (02/22/2025 10:09 AM EDT): Discussed with patient their BMI (actual, verses recommended). We have also discussed lifestyle modifications: attempts to perform physical activity as chronic conditions allow, also to monitor dietary intake: increasing protein/fruits/veggies and lowering carb intake (unless contraindicated). Limit sodas, juices, and sugary drinks. Currently prescribed ozempic Assessment & Plan (01/11/2025 7:42 AM EDT): [...] (08/27/2023): Added automatically from request for surgery [id number] Lumbar spondylosis 10/06/2018 Lumbosacral spondylosis without myelopathy 08/30 Overview (08/27/2023): Added automatically from request for surgery [id number] Major depression Assessment & Plan (12/14/2024 1:56 [...] Encounters Date Type Department Care Team Description 02/22/2025 9:40 AM EDT Office Visit [facility] [address] [place] [address] Onelia Simon NP Generalized abdominal pain (Primary Dx); Primary hypertension ; Class 3 severe obesity due to excess calories without serious comorbidity with body mass index (BMI) of 50.0 to 59.9 in adult ([facility]) 02/22/2025 Bamboo flowsheet [facility] [address] [place] [address] Onelia Simon NP 02/20/2025 Telephone [facility] [address] [place] [address] Onelia Simon NP Abdominal Cramping 02/02/2025 Orders Only [facility] [address] [place] [address] Onelia Simon NP Thyroid nodule (Primary Dx) 02/02/2025 Abstract [facility] [address] [place] [address] Onelia Simon, ELECTRO MECHANICAL ENGINEER 01/31/2025 Orders Only [facility] [address] [place] [address] Onelia Simon, ELECTRO MECHANICAL ENGINEER Adrenal mass, left (HCC) (Primary Dx) 01/31/2025 Refill [facility] [address] [place] [address] Onelia Simon, ELVIA Type 2 diabetes mellitus without complication, without long-term current use of insulin (HCC); Type 2 diabetes mellitus without complications (HCC) 01/30/2025 Refill [facility] [address] [place] [address] Bakari Bhat MD Type 2 diabetes mellitus without complications (HCC) 01/23/2025 Refill [facility] [address] [place] [address] Onelia Simon, ELVIA Type 2 diabetes mellitus without complication, without long-term current use of insulin (HCC) 01/20/2025 Clinisync Result Encounter [facility] External Department Unsolicited Alfred Onelia, ELECTRO MECHANICAL ENGINEER 01/20/2025 Clinisync Result Encounter [facility] External Department Unsolicited Alfred Onelia, ELECTRO MECHANICAL ENGINEER 01/19/2025 Abstract [facility] [address] [place] [address] Alfred Onelia, ELECTRO MECHANICAL ENGINEER 01/19/2025 Telephone [facility] [address] [place] [address] Alfred Onelia, ELECTRO MECHANICAL ENGINEER 01/17/2025 Clinisync Result Encounter [facility] External Department Unsolicited Alfred Onelia, ELECTRO MECHANICAL ENGINEER 01/17/2025 Orders Only [facility] [address] [place] [address] Onelia Simon, ELVIA Thyroid nodule (Primary Dx); Adrenal nodule (HCC) 01/17/2025 Clinisync Result Encounter [facility] External Department Unsolicited Onelia Simon, ELVIA 01/17/2025 Clinisync Result Encounter [facility] External Department Unsolicited Onelia Simon, ELECTRO MECHANICAL ENGINEER 01/11/2025 2:20 PM EDT Office Visit [facility] [address] [place] [address] Onelia Simon, ELVIA Medicare annual wellness visit, subsequent (Primary Dx); JEFF (obstructive sleep apnea); Primary hypertension ; Class 3 severe obesity due to excess calories without serious comorbidity with body mass index (BMI) of 50.0 to 59.9 in adult ([facility]); Type 2 diabetes mellitus without complication, without long-term current use of insulin ([facility]); IQBAL (dyspnea on exertion); Dyspnea on exertion 01/11/2025 Bamboo flowsheet [facility] [address] [place] [address] Onelia Simon NP 01/05/2025 Orders Only [facility] [address] [place] [address] Shaikh Ram MD 01/05/2025 Refill [facility] [address] [place] [address] Onelia Simon NP Vitamin D deficiency (Primary Dx); Hypercalcemia 01/04/2025 Clinisync Result Encounter [facility] External Department Unsolicited Onelia Simon, ELECTRO MECHANICAL ENGINEER 01/04/2025 Clinisync Result Encounter [facility] External Department Unsolicited Onelia Simon, ELECTRO MECHANICAL ENGINEER 12/28/2024 Orders Only [facility] [address] [place] [address] Onelia Simon, ELVIA Hypercalcemia (Primary Dx) 12/27/2024 Orders Only [facility] [address] [place] [address] Sotero Ham MD 12/27/2024 Clinisync Result Encounter [facility] External Department Unsolicited Onelia Simon NP 12/14/2024 1:20 PM EDT Office Visit [facility] [address] [place] [address] Onelia Simon NP Dyspnea on exertion (Primary Dx); JEFF (obstructive sleep apnea); Primary hypertension ; Class 3 severe obesity due to excess calories without serious comorbidity with body mass index (BMI) of 50.0 to 59.9 in adult ([facility]); Type 2 diabetes mellitus without complication, without long-term current use of insulin (HCC); Type 2 diabetes mellitus with polyneuropathy (HCC); Moderate episode of recurrent major depressive disorder (HCC); Bilateral lower extremity edema 12/14/2024 Bamboo flowsheet [facility] [address] [place] [address] Onelia Simon NP from Last 3 Months Immunizations Immunization Administration [...] 3.2 oz) 02/22/2025 9:47 AM EDT Height 167.6 cm (5' 6 ) 09/13/2024 3:36 PM EST Body Mass Index 50.71 09/13/2024 3:36 PM EST Plan of Treatment Upcoming Encounters Date Type Department Care Team (Late st Contact Info) Description 03/14/2025 2:00 PM EDT Office Visit [facility] [address] [place] [address] Onelia Simon NP [address] [place] [address] 01/17/2026 5:00 PM EDT Office Visit [facility] [address] [place] [address] Onelia Simon NP [address] [place] [address] Health Maintenance Due Date Last Done Comments CT Colonography 1955 FIT-DNA 1955 FIT 1955 FOBT 1955 Sigmoidoscopy 1955 Diabetes: Urine Protein Screening 03/02/2025 024, 05/27/2023 Diabetes: Hemoglobin A1C 03/16/2025 025, 06/16/2024, 05/27/2023 Influenza Vaccine (#1) 2025 4, 05/21/2022, 06/05/2021, Additional history exists Diabetes: Retinopathy Screening 06/26/2025 3 Medicare Annual Wellness (AWV) 01/11/2026 01/11/2025 , 01/11/2025 Colonoscopy 05/05/2034 05/05/2024 Colorectal Cancer Screening 05/05/2034 Pneumococcal Vaccine: 65+ Years Completed 2 Procedures Procedure Name Priority Date/Time Associated Diagnosis Comments CT ABDOMEN WO/W CON 01/20/2025 9 :43 AM EDT US THYROID 01/20/2025 9:[address] CHEST W CONTRAST 01/17/2025 9 :19 [...] Relevant to Health Maintenance Results * CT ABDOMEN WO/W CON (01/20/2025 9:43 AM EDT) Anatomical Region Laterality Modality Radiographic Renee ging 01/20/2025 9:43 AM EDT Narrative 01/20/2025 9:46 AM EDT The [address] [address] [address] Scan Report Signed Patient: RIGO BOLAÑOS MR#: [id number] : 1955 Acct:[id number] Age/Sex: 69 / M ADM Date: 01/20/25 Loc: CT Attending Dr: Onelia Simon NP Ordering Physician: Onelia Simon NP Date of Service: 01/20/25 Procedure(s): CT abdomen wo/w con Accession Number(s): [id number] cc: Onelia Simon NP The [address] [address] Patient Name: RIGO BOLAÑOS MRN: [id number] date: 1955 Sex: M Assigned Patient Location: CT Current Patient Location: CT Accession/Order Number: [id number] Exam Date: 01/20/2025 09:25 Report Date: 01/20/2025 09:43 At the request of: ONELIA SIMON NP Procedure: CT abdomen wo/w con CT ABDOMEN WITHOUT AND WITH INTRAVENOUS CONTRAST COMPARISON: Chest CT 01/17/2025 CLINICAL DATA: Left adrenal nodule nodule Spiral images were obtained through the abdomen before and after intravenous administration of [address] exam was performed using one or more following dose reduction techniques: Automated exposure control, adjustment of the mA and/or kV according to patient size, or use of iterative reconstruction technique. Limited imaging through the lung bases shows minor dependent atelectasis. Evaluation is slightly limited by body habitus. Portions of the right abdomen are not included in their entirety. The visualized liver shows fatty infiltration. There are no obvious calcified gallstones. The spleen and pancreas show no acute findings. There is a left adrenal nodule measuring approximately 3.5 cm in size. Hounsfield measurements precontrast are low. Delayed imaging was not performed to allow evaluation of adrenal washout. An adenoma is favored. There is minor bilateral perinephric fibrofatty stranding. A stone is seen at the lower pole on the right measuring just over a centimeter in size. There is no hydronephrosis. The imaged abdominal aorta is normal caliber. There are tiny lymph nodes. No ascites is present. There is no dilated small bowel loops [id number]. There is stool within the colon. Subtle levoscoliotic curvature and degenerative changes are present at the spine. CT/CT abdomen wo/w con IMPRESSION: LEFT ADRENAL NODULE, NOT FULLY EVALUATED DUE TO TECHNIQUE PERFORMED, HOWEVER ADENOMA IS FAVORED. LONG PATIENT HAS NO KNOWN HISTORY OF MALIGNANCY, FOLLOW-UP COULD BE OBTAINED TO ASSURE STABILITY. FATTY LIVER. RIGHT NEPHROLITHIASIS. Impression dictated by: Krystal Maurice M.D. 01/20/2025 9:43 AM Dictation Location: [place] [address] Electronically authenticated by: [id number] Date: 01/20/2025 09:43 Dictated By: Krystal Maurice M.D. Signed By: 01/20/2546 DD/ 2 TD/TT: Link Trainer Teacher: Procedure Note Radiology, Radiologist, MD - 01/20/2025 [place] [address] CT Scan Report Signed Patient: RIGO BOLAÑOS EMR#: [id number] : 1955cct:[id number] Age/Sex: 69 / MADM Date: 01/20/25 Loc: CT Attending Dr: Onelia Simon NP Ordering Physician: Onelia Simon NP Date of Service: 01/20/25 Procedure(s): CT abdomen wo/w con Accession Number(s): [id number] cc: Onelia Simon NP [address] [address] Patient Name: RIGO BOLAÑOS MRN: [id number] date: 1955 Sex: M Assigned Patient Location: CT Current Patient Location: CT Accession/Order Number: [id number] Exam Date: 01/20/2025 09:25 Report Date: 01/20/2025 09:43 At the request of: ONELIA SIMON NP Procedure: CT abdomen wo/w con CT ABDOMEN WITHOUT AND WITH INTRAVENOUS CONTRAST COMPARISON: Chest CT 01/17/2025 CLINICAL DATA: Left adrenal nodule nodule Spiral images were obtained through the abdomen before and afterintravenous administration of [address]LO [address] exam was performed usingone or more following dose reduction techniques: Automated exposure control, adjustment of the mA and/or kV according to patient size, or use ofiterative reconstruction technique. Limited imaging through the lung bases shows minor dependent atelectasis. Evaluation is slightly limited by body habitus. Portions of the rightabdomen are not included in their entirety. The visualized liver shows fatty infiltration. There are no obvious calcified gallstones. The spleen and pancreas show no acute findings. There is a left adrenal nodule measuring approximately 3.5 cm in size. Hounsfield measurements precontrast arelow. Delayed imaging was not performed to allow evaluation of adrenal washout.An adenoma is favored. There is minor bilateral perinephric fibrofatty stranding. A stone is seen at the lower pole on the right measuring justover a centimeter in size. There is no hydronephrosis. The imaged abdominalaorta is normal caliber. There are tiny lymph nodes. No ascites is present.There is no dilated small bowel loops [id number]. There is stool within the colon. Subtle levoscoliotic curvature and degenerative changes arepresent at the spine. CT/CT abdomen wo/w con IMPRESSION: LEFT ADRENAL NODULE, NOT FULLY EVALUATED DUE TO TECHNIQUE PERFORMED,HOWEVER ADENOMA IS FAVORED. LONG PATIENT HAS NO KNOWN HISTORY OFMALIGNANCY, FOLLOW-UP COULD BE OBTAINED TO ASSURE STABILITY. FATTY LIVER. RIGHT NEPHROLITHIASIS. Impression dictated by: Krystal Maurice M.D. 01/20/2025 9:43 AM Dictation Location: [place] [address] Electronically authenticated by: [id number] Y Date: 9:43 Dictated By: Krystal Maurice M.D. Signed By:01/20/25 0946 DD/ 2 TD/TT: Link Trainer Teacher: us Onelia Simon ELECTRO MECHANICAL ENGINEER IMG XR PROCEDURES Final Result * US thyroid (01/20/2025 9:25 AM EDT) Anatomical Region Laterality Modality Head, Neck Ultrasound 01/20/2025 9:25 AM EDT Narrative 01/20/2025 9:27 AM EDT The [address] [address] Ultrasound Report Signed Patient: RIGO BOLAÑOS MR#: [id number] : 1955 Acct:[id number] Age/Sex: 69 / M ADM Date: 01/20/25 Loc: CT Attending Dr: Onelia Simon NP Ordering Physician: Onelia Simon NP Date of Service: 01/20/25 Procedure(s): US thyroid Accession Number(s): [id number] cc: Onelia Simon NP [place] [id number] Patient Name: RIGO BOLAÑOS MRN: [facility]:[id number] date: 1955 Sex: M Assigned Patient Location: CT Current Patient Location: CT Accession/Order Number: [id number] Exam Date: 01/20/2025 09:20 Report Date: 01/20/2025 09:25 At the request of: ONELIA SIMON NP Procedure: US thyroid THYROID ULTRASOUND CLINICAL DATA: Thyroid nodule seen on CT COMPARISON: CT chest 01/17/2025 The right thyroid lobe measures 5.9 x 3.0 x 2.4 cm. The left lobe measures 4.5 x 1.8 x 2.1 cm. The isthmus measures 3 - 4 mm. Thyroid echotexture is mildly heterogeneous. At the mid to lower pole on the right, there is a mixed echogenicity nodule with hyperechoic foci (TI-RADS 5) measuring 3.0 x 2.9 x 2.2 cm. At the inferior pole on the left, there is a hypoechoic nodule measuring 1.6 x 1.3 x 1.8 cm (TI-RADS 4). US/US thyroid IMPRESSION: BILATERAL MODERATELY SUSPICIOUS THYROID NODULES. BIOPSY IS SUGGESTED. Impression dictated by: Krystal Maurice M.D. 01/20/2025 9:25 AM Dictation Location: [place] [address] Electronically authenticated by: [id number] Y Date: 01/20/2025 09:25 Dictated By: Krystal Maurice M.D. Signed By: 01/20/25926 DD/ 4 TD/TT: Link Trainer Teacher: Procedure Note Radiology, Radiologist, MD - 01/20/2025 [place] [address] Ultrasound Report Signed Patient: RIGO BOLAÑOS EMR#: [id number] : 1955cct:[id number] Age/Sex: 69 / MADM Date: 01/20/25 Loc: CT Attending Dr: Onelia Simon NP Ordering Physician: Onelia Simon NP Date of Service: 01/20/25 Procedure(s): US thyroid Accession Number(s): [id number] cc: Onelia Simon NP [place] [address] Patient Name: RIGO BOLAÑOS MRN: [id number] date: 1955 Sex: M Assigned Patient Location: CT Current Patient Location: CT Accession/Order Number: [id number] Exam Date: 01/20/2025 09:20 Report Date: 01/20/2025 09:25 At the request of: ONELIA SIMON NP Procedure: US thyroid THYROID ULTRASOUND CLINICAL DATA: Thyroid nodule seen on CT COMPARISON: CT chest 01/17/2025 The right thyroid lobe measures 5.9 x 3.0 x 2.4 cm. The left lobemeasures 4.5 x 1.8 x 2.1 cm. The isthmus measures 3 - 4 mm. Thyroid echotextureis mildly heterogeneous. At the mid to lower pole on the right, there is amixed echogenicity nodule with hyperechoic foci (TI-RADS 5) measuring 3.0 x 2.9x 2.2 cm. At the inferior pole on the left, there is a hypoechoic nodule measuring 1.6 x 1.3 x 1.8 cm (TI-RADS 4). US/US thyroid IMPRESSION: BILATERAL MODERATELY SUSPICIOUS THYROID NODULES. BIOPSY IS SUGGESTED. Impression dictated by: Krystal Maurice M.D. 01/20/2025 9:25 AM Dictation Location: [place] [address] Electronically authenticated by: [id number] Y Date: 9:25 Dictated By: Krystal Maurice M.D. Signed By:01/20/25926 DD/ 4 TD/TT: Link Trainer Teacher: us Onelia Simon NP IMG US PROCEDURES Final Result * CT CHEST W CONTRAST (01/17/2025 9:19 AM EDT) Anatomical Region Laterality Modality Other 01/17/2025 9:19 AM EDT Narrative 01/17/2025 9:21 [place] [address] CT Scan Report Signed Patient: RIGO BOLAÑOS MR#: [id number] : 1955 Acct:[id number] Age/Sex: 69 / M ADM Date: 01/17/25 Loc: CT Attending Dr: Onelia Simon NP Ordering Physician: Onelia Simon NP Date of Service: 01/17/25 Procedure(s): CT chest w con Accession Number(s): [id number] cc: Onelia Simon NP [address] [address] Patient Name: RIGO BOLAÑOS MRN: [id number] date: 1955 Sex: M Assigned Patient Location: CT Current Patient Location: CT Accession/Order Number: [id number] Exam Date: 01/17/2025 09:11 Report Date: 01/17/2025 [...] Maurice M.D. 01/17/2025 9:19 AM Dictation Location: [place] [address] Electronically authenticated by: [id number] Y Date: 01/17/2025 09:19 Dictated By: Krystal Maurice M.D. Signed By: 01/17/25920 DD/ 8 TD/TT: Link Trainer Teacher: Procedure Note Radiology, Radiologist, MD - 01/17/2025 [place] [address] CT Scan Report Signed Patient: RIGO BOLAÑOS EMR#: [id number] : 1955cct:[id number] Age/Sex: 69 / MADM Date: 01/17/25 Loc: CT Attending Dr: Onelia Simon NP Ordering Physician: Onelia Simon NP Date of Service: 01/17/25 Procedure(s): CT chest w con Accession Number(s): [id number] cc: Onelia Simon NP The [address] [address] Patient Name: RIGO BOLAÑOS MRN: [id number] date: 1955 Sex: M Assigned Patient Location: CT Current Patient Location: CT Accession/Order Number: [id number] Exam Date: 01/17/2025 09:11 Report Date: 01/17/2025 [...] Maurice M.D. 01/17/2025 9:19 AM Dictation Location: [place] [address] Electronically authenticated by: [id number] Y Date: 9:19 Dictated By: Krystal Maurice M.D. Signed By:01/17/25920 DD/ 8 TD/TT: Link Trainer Teacher: us Onelia Simon NP [facility] Final Result * RT PULMONARY FUNCTION TEST (01/17/2025 8:11 AM EDT) Anatomical Region Laterality Modality Other 01/17/2025 8:11 AM EDT Narrative 01/19/2025 3:42 PM EDT [address] [address] Respiratory Report Signed Patient: RIGO BOLAÑOS MR#: [id number] : 1955 Acct:[id number] Age/Sex: 69 / M ADM Date: 01/17/25 Loc: CT Attending Dr: Onelia Simon ELECTRO MECHANICAL ENGINEER Ordering Physician: Onelia Simon NP Date of Service: 01/17/25 Procedure(s): RT pulmonary function test Accession Number(s): [id number] cc: [facility] Test Date: 2025-01-17 Pat Name: RIGO BOLAÑOS Department: Room: - Gender: Male Repairer Sash And Door: Clementine Moss RRT : 1955 Requested By: ONELIA SIMON Order Number: [id number] Reading MD: Ishan Hurst Interpretive Statements Pulmonary [...] Signed By: 01/19/25 1542 DD/ 0811 TD/TT: Link Trainer Teacher: Procedure Note Radiology, Radiologist, MD - 01/19/2025 The [place] [id number] Respiratory Report Signed Patient: RIGO BOLAÑOS EMR#: [id number] : 1955cct:[id number] Age/Sex: 69 / MADM Date: 01/17/25 Loc: CT Attending Dr: Onelia Simon NP Ordering Physician: Onelia Simon NP Date of Service: 01/17/25 Procedure(s): RT pulmonary function test Accession Number(s): [id number] cc: [facility] Test Date: 2025-01-17 Pat Name: RIGO BOLAÑOS Department: Room: - Gender: Male Repairer Sash And Door: Clementine Moss RRT : 1955 Requested By: ONELIA SIMON Order Number: [id number] Reading MD: Ishan Hurst Interpretive Statements Pulmonary [...] D.O. Signed By:01/19/25 1542 DD/ 0811 TD/TT: Link Trainer Teacher: us Onelia Simon NP CLINISYNC IMAGING Final Result * ALL HEMOGLOBIN (01/17/2025 7:35 AM EDT) TBH HGB 15.3 14.0 - 18.0 g/dL TBH 01/17/2025 7:35 AM EDT 01/17/2025 7:41 AM EDT Narrative CLINISYNC - 01/17/2025 7:41 AM EDT Onelia Simon NP CLINISYNC Final Result CLINISYNC TBH * STRESS CARDIAC STRESS/LEXISCAN (01/05/2025 2:00 PM EDT) Anatomical Region Laterality Modality Radiographic Renee ging us Shaikh Leanna WYNEN IMG XR PROCEDURES Final Result * CA ECHO DOPPLER COMPLETE (01/04/2025 6:00 PM EDT) Anatomical Region Laterality Modality Other 01/04/2025 6:00 PM EDT Narrative 01/04/2025 6:02 [place] [address] Cardiology Report Signed Patient: RIGO BOLAÑOS MR#: [id number] : 1955 Acct:[id number] Age/Sex: 69 / M ADM Date: 01/04/25 Loc: CARD Attending Dr: Onelia Simon NP Ordering Physician: Onelia Simon NP Date of Service: 01/04/25 Procedure(s): CA echo doppler complete Accession Number(s): [id number] cc: Onelia Simon NP Patient Name: RIGO BOLAÑOS MR#: [id number] : 1955 Exam Date: 01/04/2025 Ordering Doctor: [...] Signed By: 01/04/25 1802 DD/ 1800 TD/TT: Link Trainer Teacher: Procedure Note Radiology, Radiologist, MD - 01/04/2025 [place] [address] Cardiology Report Signed Patient: RIGO BOLAÑOS EMR#: [id number] : 1955cct:[id number] Age/Sex: 69 / MADM Date: 01/04/25 Loc: CARD Attending Dr: Onelia Simon NP Ordering Physician: Onelia Simon NP Date of Service: 01/04/25 Procedure(s): CA echo doppler complete Accession Number(s): [id number] cc: Onelia Simon NP Patient Name: RIGO BOLAÑOS MR#: [id number] : 1955 Exam Date: 01/04/2025 Ordering Doctor: [...] FOWLER Signed By:01/04/25 1802 DD/ 1800 TD/TT: Link Trainer Teacher: Onelia Simon NP CLINISYNC IMAGING Final Result [...] EDT Onelia Simon NP CLINISYNC Final Result [facility] * XR lumbar spine 2 or 3 [...] 0.70 - 1.30 mg/dL TBH TBH EGFR-AF YEMENI >60 >=60 mL/min/1.7 3m 2 TBH TBH EGFR-NON AF YEMENI >60 >=60 mL/min/1.7 3m 2 TBH BUN CREATININE RATIO 18.8 TBH CALCIUM 10.2(H) 8.5 - 10.1 mg/dL TBH 12/27/2024 11:5 0 AM EDT 12/27/2024 11:51 AM EDT Narrative CLINISYNC - 12/27/2024 1:06 PM EDT us Onelia Simon NP CLINISYNC Final Result [facility]INISYNC [facility] * (ABNORMAL) POCT glycosylated hemoglobin (Hb A1C) docked device (12/14/2024 2:05 PM EDT) Hemoglobin A1C 7.0 Blood Venous blood specimen / Unknown 12/14/2024 2:05 PM EDT us Onelia Simon NP POINT OF CARE TEST [...] Personal/Family Self 1955 [address] [place] [address] [employer] MED[employer]ARE Care Teams Courier Delivery Driver Relationship Specialty Start Date End Date Bakari Bhat MD [address] [place] [address] PCP - General Family Medicine 02/29/24 Cathleen Malik NP [address] [place] [address] Nurse Practitioner Family Medicine 02/29/24
--- OUTSIDE RECORDS SUMMARY | 2025-02-22 10:32 | XMS_ITS | Encounter Summary ---
Author Organization [facility] Address [address] [place] [address] Care Team Providers Care Charrer Name Role Phone Shaikh RICCI Ram Primary Care Provider [phone] Bakari Bhat MD Primary Care Provider [phone] Cathleen Malik CERAMICS TEST ENGINEER Unavailable [phone] Faisal Cr LPC Unavailable Unavailable Encounter Details Date Type Department Care Team (Late st Contact Info) Description 2023 Clinisync Result Encounter [facility] External Department Unsolicited Shaikh Ram MD [address] [place] [address] Social History Tobacco Use Types Packs/Day Years [...] Office Visit [facility] [address] [place] [address] Onelia Simon NP [address] [place] [address] 01/17/2026 5:00 PM EDT Office Visit [facility] [address] [place] [address] Onelia Simon NP [address] [place] [address] documented as of this encounter Procedures Procedure Name Priority Date/Time Associated Diagnosis Comments ECG 12-LEAD 2023 9:28 AM EST documented in this encounter Results * ECG 12-LEAD (2023 9:28 AM EST) Anatomical Region Laterality Modality Other 2023 9:28 AM EST Narrative 08/29/2023 7:11 AM EST The [address] [address] Electrocardiograph Report Signed Patient: RIGO BOLAÑOS MR#: [id number] : 1955 Acct:[id number] Age/Sex: 68 / M ADM Date: 08/28/23 Loc: CARD Attending Dr: Shaikh Leanna Holt Ordering Physician: Shaikh Yanet Ram Date of Service: 08/28/23 Procedure(s): ECG 12 lead Accession Number(s): [id number] cc: [facility] Test Date: 2023 Pat Name: RIGO BOLAÑOS Department: Room: - Gender: Male Instrument Repair Specialist: : 1955 Requested By: SHAIKH LEANNA Order Number: [id number] Reading MD: JUAN MOMIN Measurements Intervals [place] Rate: 89 P: 51 CT: 159 QRS: 47 QRSD: 111 T: 47 [...] By: 08/29/23 0711 08/29/23710 DD/ 7 TD/TT: Enterprise Project Manager: Procedure Note Radiology, Radiologist, - 08/29/2023 [place] [address] Electrocardiograph Report Signed Patient: RIGO BOLAÑOS EMR#: [id number] : 1955cct:[id number] Age/Sex: 68 / MADM Date: 08/28/23 Loc: CARD Attending Dr: Shaikh Leanna Holt Ordering Physician: Shaikh Yanet Ram Date of Service: 08/28/23 Procedure(s): ECG 12 lead Accession Number(s): [id number] cc: [facility] Test Date: 2023 Pat Name: RIGO BOLAÑOS Department: Room: - Gender: Male Instrument Repair Specialist: : 1955 Requested By: SHAIKH LEANNA Order Number: [id number] Reading MD: JUAN MOMIN Measurements Intervals [place] Rate: 89 P: 51 CT: 159 QRS: 47 QRSD: 111 T: 47 QT: 337 QTc: 411 Interpretive Statements SINUS RHYTHM LOW QRS VOLTAGE IN PRECORDIAL LEADS [QRS DEFLECTION < 1.0 mV IN CHESTLEADS] MODERATE INTRAVENTRICULAR CONDUCTION DELAY [110+ ms QRS DURATION] No previous ECG available for comparison Electronically Signed On 08-29-2023 7:11:01 EST by JUAN MOMIN Dictated By: Juan Momin D.O. Signed By:08/29/23 0711 08/29/23710 DD/ 7 TD/TT: Enterprise Project Manager: us Shaikh Leanna WYNNE CLINISYNC IMAGING Final Result documented in this encounter Visit Diagnoses Not on filedocumented in this encounter Additional Health Concerns Assessment Noted Time PHQ-9 Depression Total Score: 15 08/27/ 024 3:36 PM EST documented as of this encounter Care Teams Charrer Relationship Specialty Start Date End Date Shaikh Ram MD [address] [place] [address] PCP - General Internal Medicine 08/26/23 02/28/24 Bakari Bhat MD [address] [place] [address] PCP - General Family Medicine 02/29/24 Cathleen Malik NP [address] [place] [address] Nurse Practitioner Family Medicine 02/29/24 Faisal Cr LPC Lead Shipper Behavioral Health 08/31/24 01/23/25 documented as of this encounter
--- OUTSIDE RECORDS SUMMARY | 2025-02-22 10:33 | XMS_ITS | Encounter Summary ---
Author Organization [facility] Address [id number] [address] [place] [address] Care Team Providers Care Bellows Assembler Name Role Phone Mary Alice Schultz STOREKEEPER STEWARD-ENGINEERING TECHNOLOGY INSTRUCTOR Primary Care Provider Encounter Details Date Type Department Care Team (Late st Contact Info) Description 07/02/2022 Telephone [facility] Internal Medicine - Family Medicine [address] [place] [address] Evita Larose MA Social History Tobacco Use [...] on filedocumented in this encounter Care Teams Bellows Assembler Relationship Specialty Start Date End Date Mary Alice Schultz APRN-BASIM [address] [place], [place] [phone] PCP - General Family Medicine 08/27/17 documented as of this encounter
--- OUTSIDE RECORDS SUMMARY | 2025-02-22 10:33 | XMS_ITS | Encounter Summary ---
Author Organization [facility] Address [id number] [address] [place] [address] Care Team Providers Care Hand Filer Balance Wheel Name Role Phone Mary Alice Schultz Primary Care Provider Reason for Visit * Reason Onset Date Comments Med Refill 05/10/2024 Encounter Details Date Type Department Care Team (Late st Contact Info) Description 05/10/2024 Refill [facility] Internal [facility] - Family Medicine [address] [place] [address] Maria Teresa Torres CMA Social History Tobacco [...] on filedocumented in this encounter Care Teams Hand Filer Balance Wheel Relationship Specialty Start Date End Date Mary Alice Schultz APRN-CNP [address] [place] [address] PCP - General Family Medicine 08/27/17 documented as of this encounter
--- OUTSIDE RECORDS SUMMARY | 2025-02-22 10:33 | XMS_ITS | Encounter Summary ---
Author Organization [facility] Address [id number] [address] [place] [address] Care Team Providers Care Customer Logistics Manager Name Role Phone Mary Alice Schultz Primary Care Provider Reason for Visit * Reason Onset Date Comments Med Refill 02/01/2024 Encounter Details Date Type Department Care Team (Late st Contact Info) Description 02/01/2024 Refill [facility] Internal Medicine - Family Medicine [address] [place] [address] Maria Teresa Torres CMA Social History Tobacco [...] on filedocumented in this encounter Care Teams Customer Logistics Manager Relationship Specialty Start Date End Date Mary Alice Schultz APRN-CNP [address] [place] [address] PCP - General Family Medicine 08/27/17 documented as of this encounter
--- OUTSIDE RECORDS SUMMARY | 2025-02-22 10:33 | XMS_ITS | Encounter Summary ---
Author Organization [employer] [facility] tem Address [id number] [address] [place] [address] Care Team Providers Care Water Pollution Control Technician Name Role Phone Mary Alice Schultz APRN-BRANCH SERVICES MANAGER Primary Care Provider Reason for Visit * Reason Onset Date Comments Med Refill 04/21/2022 Encounter Details Date Type Department Care Team (Late st Contact Info) Description 04/21/2022 [facility] [address] [place] [address] Maria Teresa Torres CMA Social History Tobacco [...] on filedocumented in this encounter Care Teams Water Pollution Control Technician Relationship Specialty Start Date End Date Mary Alice Schultz APRN-BASIM [address] [place] [address] PCP - General Family Medicine 08/27/17 documented as of this encounter
--- OUTSIDE RECORDS SUMMARY | 2025-02-22 10:33 | XMS_ITS | Encounter Summary ---
Author Organization [facility] Address [address] [place] [address] Care Team Providers Care Caustic Preparer Name Role Phone Bakari Bhat MD Primary Care Provider [phone] Cathleen Malik NP Unavailable [phone] Reason for Visit * Reason Onset Date Comments Abdominal Cramping 02/20/2025 Encounter Details Date Type Department Care Team (Late st Contact Info) Description 02/20/2025 Telephone [facility] [address] [place] [address] Onelia Simon NP [address] [place] [address] Abdominal Cramping Social History Tobacco Use Types Packs/Day Years [...] * Telephone Encounter - [facility]MAN - 02/20/2025 11:26 AM EDT Last BM was Thursday. Pt has been taking mirlax 2x daily he has been having abd cramping and pain No nausea no diarrhea Pt was in [place] for the last 3 weeks Pt just got back Thursday He states that he does have BM regularly on a dialy 98.8 temp 93 heart rate 95% 158/82 left arm manual BP documented in this encounter Plan of Treatment Upcoming Encounters Date Type Department Care Team (Late st Contact Info) Description 03/14/2025 2:00 PM EDT Office Visit [facility] [address] [place] [address] Onelia Simon, ELVIA [address] [place] [address] 01/17/2026 5:00 PM EDT Office Visit [facility] [address] [place] [address] Onelia Simon NP [address] [place] [address] documented as of this encounter Visit Diagnoses Not on filedocumented in this encounter Additional Health Concerns Assessment Noted Time PHQ-9 Depression Total Score: 15 024 3:36 PM EST documented as of this encounter Care Teams Caustic Preparer Relationship Specialty Start Date End Date Bakari Bhat MD [address] [place] [address] PCP - General Family Medicine 02/29/24 Cathleen Malik NP [address] [place] [address] Nurse Practitioner Family Medicine 02/29/24 documented as of this encounter
--- OUTSIDE RECORDS SUMMARY | 2025-02-22 10:33 | XMS_ITS | Encounter Summary ---
Author Organization [facility] Address [facility] [place]-[id number] [address] [place] [address] Care Team Providers Care Dinking Machine Operator Name Role Phone Mary Alice Schultz Primary Care Provider Reason for Visit * Reason Onset Date Comments Med Refill 10/21/2022 Encounter Details Date Type Department Care Team (Late st Contact Info) Description 10/21/2022 Refill [facility] Internal Medicine - Family Medicine [address] [place] [address] Mary Alice Schultz APRN-CNP [facility] [place], [place] [address] Social History Tobacco Use Types Packs/Day Years [...] on filedocumented in this encounter Care Teams Dinking Machine Operator Relationship Specialty Start Date End Date Mary Alice Schultz APRN-CNP [address] [place] [address] PCP - General Family Medicine 08/27/17 documented as of this encounter
--- OUTSIDE RECORDS SUMMARY | 2025-02-22 10:33 | XMS_ITS | Encounter Summary ---
Author Organization [facility] Address [address] [place] [address] Care Team Providers Care Systems Checkout Mechanic Name Role Phone Bakari Bhat MD Primary Care Provider [phone] Cathleen Malik NP Unavailable [phone] Encounter Details Date Type Department Care Team (Late Contact Info) Description 02/22/2025 Bamboo flowsheet [facility] [address] [place] [address] Onelia Simon NP [address] [place] [address] Social History Tobacco Use Types Packs/Day Years [...] Encounters Date Type Department Care Team (Late Contact Info) Description 03/14/2025 2:00 PM EDT Office Visit [facility] [address] [place] [address] Onelia Simon NP [address] [place] [address] 01/17/2026 5:00 PM EDT Office Visit [facility] [address] [place] [address] Onelia Siomn NP [address] [place] [address] documented as of this encounter Visit Diagnoses Not on filedocumented in this encounter Additional Health Concerns Assessment Noted Time PHQ-9 Depression Total Score: 15 024 3:36 PM EST documented as of this encounter Care Teams Systems Checkout Mechanic Relationship Specialty Start Date End Date Bakari Bhat MD [address] [place] [address] PCP - General Family Medicine 02/29/24 Cathleen Malik NP [address] [place] [address] Nurse Practitioner Family Medicine 02/29/24 documented as of this encounter
--- OUTSIDE RECORDS SUMMARY | 2025-02-22 10:33 | XMS_ITS | Encounter Summary ---
Author Organization [facility] Address [address] [place] [address] Care Team Providers Care Family Support Specialist Name Role Phone Bakari Bhat MD Primary Care Provider Cathleen Malik BUSINESS SOLUTIONS DIRECTOR Unavailable [phone] Faisal Cr LPC Unavailable Unavailable Encounter Details Date Type Department Care Team (Late st Contact Info) Description 01/05/2025 [facility] [address] [place] [address] Shaikh Ram MD [address] [place] [address] Social History Tobacco Use Types Packs/Day Years [...] Office Visit [facility] [address] [place] [address] Onelia Simon NP [address] [place] [address] 01/17/2026 5:00 PM EDT Office Visit [facility] [address] [place] [address] Onelia Simon NP [address] [place] [address] documented as of this encounter Procedures Procedure [...] documented as of this encounter Care Teams Family Support Specialist Relationship Specialty Start Date End Date Bakari Bhat MD [address] [place] [address] PCP - General Family Medicine 02/29/24 Cathleen Malik NP [address] [place] [address] Nurse Practitioner Family Medicine 02/29/24 Faisal Cr LPC Lpc Behavioral Health 08/31/24 01/23/25 documented as of this encounter
--- OUTSIDE RECORDS SUMMARY | 2025-02-22 10:33 | XMS_ITS | Encounter Summary ---
Author Organization [facility] tem Address [facility] [place][id number] [address] [place] [address] Care Team Providers Care Gauger Chief Name Role Phone Mary Alice Schultz Primary Care Provider Encounter Details Date Type Department Care Team (Late st Contact Info) Description 09/10/2023 Telephone [facility] - Family Medicine [address] [place] [address] Maria Teresa Torres CMA Social History Tobacco [...] on filedocumented in this encounter Care Teams Gauger Chief Relationship Specialty Start Date End Date Mary Alice Schultz APRN-CNP [address] [place] [address] PCP - General Family Medicine 08/27/17 documented as of this encounter
--- OUTSIDE RECORDS SUMMARY | 2025-02-22 10:33 | XMS_ITS | Encounter Summary ---
Author Organization [facility] Address [address] [place] [address] Care Team Providers Care Acting Section Chief Name Role Phone Bakari Bhat MD Primary Care Provider Cathleen Malik CREAM CHEESE MAKER Unavailable [phone] Faisal Cr LPC Unavailable Unavailable Encounter Details Date Type Department Care Team (Late st Contact Info) Description 12/27/2024 [facility] [address] [place] [address] Sotero Ham MD [address] [place] [place] [address] Social History Tobacco Use Types Packs/Day Years [...] Office Visit [facility] [address] [place] [address] Onelia Simon NP [address] [place] [address] 01/17/2026 5:00 PM EDT Office Visit [facility] [address] [place] [address] Onelia Simon NP [address] [place] [address] documented as of this encounter Procedures Procedure [...] documented as of this encounter Care Teams Acting Section Chief Relationship Specialty Start Date End Date Bakari Bhat MD [address] [place] [address] PCP - General Family Medicine 02/29/24 Cathleen Malik NP [address] [place] [address] Nurse Practitioner Family Medicine 02/29/24 Faisal Cr LPC Cradle Slide Maker Behavioral Health 08/31/24 01/23/25 documented as of this encounter
--- OUTSIDE RECORDS SUMMARY | 2025-02-22 10:33 | XMS_ITS | Encounter Summary ---
Author Organization [facility] Address [address] [place] [address] Care Team Providers Care Deployment Engineer Name Role Phone Bakari Bhat MD Primary Care Provider [phone] Cathelen Malik NP Unavailable [phone] Faisal Cr LPC Unavailable Unavailable Encounter Details Date Type Department Care Team (Late st Contact Info) Description 01/19/2025 Abstract [facility] [address] [place] [address] Onelia Simon NP [address] [place] [address] Social History Tobacco Use Types Packs/Day Years [...] 2:00 PM EDT [facility] [address] [place] [address] Onelia Simon NP [address] [place] [address] 01/17/2026 5:00 PM EDT Office Visit [facility] [address] [place] [address] Onelia Simon NP [address] [place] [address] documented as of this encounter Visit Diagnoses Not on filedocumented in this encounter Additional Health Concerns Assessment Noted Time PHQ-9 Depression Total Score: 15 024 3:36 PM EST documented as of this encounter Care Teams Deployment Engineer Relationship Specialty Start Date End Date Bakari Bhat MD [address] [place] [address] PCP - General Family Medicine 02/29/24 Cathleen Malik NP [address] [place] [address] Nurse Practitioner Family Medicine 02/29/24 Faisal Cr LPC Recreation Establishment Manager Behavioral Health 08/31/24 01/23/25 documented as of this encounter
--- OUTSIDE RECORDS SUMMARY | 2025-02-22 10:33 | XMS_ITS | Encounter Summary ---
Author Organization [facility] Address [address] [place] [address] Care Team Providers Care Video Game Engineer Name Role Phone Bakari Bhat MD Primary Care Provider [phone] Cathleen Malik NP Unavailable [phone] Encounter Details Date Type Department Care Team (Late Contact Info) Description 02/02/2025 Abstract [facility] [address] [place] [address] Onelia Simon NP [address] [place] [address] Social History Tobacco Use Types Packs/Day Years [...] 03/14/2025 2:00 PM EDT Office Visit [facility] [address] [place] [address] Onelia Simon NP [address] [place] [address] 01/17/2026 5:00 PM EDT Office Visit [facility] [address] [place] [address] Onelia Simon NP [address] [place] [address] documented as of this encounter Visit Diagnoses Not on filedocumented in this encounter Additional Health Concerns Assessment Noted Time PHQ-9 Depression Total Score: 15 024 3:36 PM EST documented as of this encounter Care Teams Video Game Engineer Relationship Specialty Start Date End Date Bakari Bhat MD [address] [place] [address] PCP - General Family Medicine 02/29/24 Cathleen Malik NP [address] [place] [address] Nurse Practitioner Family Medicine 02/29/24 documented as of this encounter
--- OUTSIDE RECORDS SUMMARY | 2025-02-22 10:33 | XMS_ITS | Encounter Summary ---
Author Organization [facility] Address [facility][id number] [address] [place] [address] Care Team Providers Care Psychiatric Aide Name Role Phone Mary Alice Schultz Primary Care Provider Reason for Visit * Reason Onset Date Comments Med Refill 04/20/2023 Encounter Details Date Type Department Care Team (Late st Contact Info) Description 04/20/2023 Refill [facility] Internal Medicine - Family Medicine [address] [place] [address] Mary Alice Schultz APRN-CNP [facility] [place], [place] [address] Social History Tobacco Use Types Packs/Day Years [...] on filedocumented in this encounter Care Teams Psychiatric Aide Relationship Specialty Start Date End Date Mary Alice Schultz APRN-CNP [address] [place] [address] PCP - General Family Medicine 08/27/17 documented as of this encounter
--- OUTSIDE RECORDS SUMMARY | 2025-02-22 10:33 | XMS_ITS | Encounter Summary ---
Author Organization [facility] tem Address [facility]-[id number] [address] [place] [address] Care Team Providers Care Crew Foreman Name Role Phone Mary Alice Schultz APRN-FOUNTAIN OPERATOR Primary Care Provider Encounter Details Date Type Department Care Team (Late st Contact Info) Description 02/16/2024 Orders Only [facility] Internal Medicine - Family Medicine [address] [place] [address] Ref Prov, [place] [address] Social History Tobacco Use Types Packs/Day Years [...] on filedocumented in this encounter Care Teams Crew Foreman Relationship Specialty Start Date End Date Mary Alice Schultz APRN-CNP [address] [place] [address] PCP - General Family Medicine 08/27/17 documented as of this encounter
--- OUTSIDE RECORDS SUMMARY | 2025-02-22 10:33 | XMS_ITS | Encounter Summary ---
Author Organization [facility] Address [address] [place] [address] Care Team Providers Care Sap Manager Name Role Phone Bakari Bhat MD Primary Care Provider [phone] Cathleen Malik NP Unavailable [phone] Faisal Cr LPC Unavailable Unavailable Encounter Details Date Type Department Care Team (Late st Contact Info) Description 12/28/2024 [facility] [address] [place] [address] Onelia Simon NP [address] [place] [phone] Hypercalcemia (Primary Dx) Social History Tobacco Use [...] 2:00 PM EDT [facility] [address] [place] [address] Onelia Simon, ELVIA [address] [place] [address] 01/17/2026 5:00 PM EDT Office Visit [facility] [address] [place] [phone] Onelia Simon NP [address] [place] [phone] Scheduled Orders Name Type Priority Associated Diagnoses Orde r Schedule Vitamin D 25 hydroxy Lab Routine Hypercalcemia Expected: 12/28/2024 (Approximate), Expires: 12/28/2025 documented as of this encounter Visit Diagnoses Diagnosis Hypercalcemia- Primary documented in this encounter Additional Health Concerns Assessment Noted Time PHQ-9 Depression Total Score: 15 024 3:36 PM EST documented as of this encounter Care Teams Sap Manager Relationship Specialty Start Date End Date Bakari Bhat MD [address] [place] [phone] PCP - General Family Medicine 02/29/24 Cathleen Malik NP [address] [place] [phone] Nurse Practitioner Family Medicine 02/29/24 Faisal Cr LPC Saddle Stitching Machine Operator Behavioral Health 08/31/24 01/23/25 documented as of this encounter
--- OUTSIDE RECORDS SUMMARY | 2025-02-22 10:33 | XMS_ITS | Encounter Summary ---
[id number] [address] [place] [address] Care Team Providers Care Cytometry Technologist Name Role Phone Mary Alice Schultz Primary Care Provider Reason for Visit * Reason Onset Date Comments Med Refill 02/01/2024 Encounter Details Date Type Department Care Team (Late st Contact Info) Description 02/01/2024 Refill [facility] Internal Medicine - Family Medicine [address] [place] [address] Maria Teresa Torres CMA Social History Tobacco [...] on filedocumented in this encounter Care Teams Cytometry Technologist Relationship Specialty Start Date End Date Mary Alice Schultz APRN-CNP [address] [place] [address] PCP - General Family Medicine 08/27/17 documented as of this encounter
--- OUTSIDE RECORDS SUMMARY | 2025-02-22 10:33 | XMS_ITS | Encounter Summary ---
Author Organization [email or web address] Address [id number] [address] [place] [address] Care Team Providers Care Heel Cutter Name Role Phone Mary Alice Schultz Primary Care Provider Reason for Visit * Reason Onset Date Comments Med Refill 04/22/2023 Encounter Details Date Type Department Care Team (Late st Contact Info) Description 04/22/2023 [facility] [address] [place] [address] Maria Teresa Torres CMA Social History Tobacco [...] on filedocumented in this encounter Care Teams Heel Cutter Relationship Specialty Start Date End Date Mary Alice Schultz APRN-CNP [address] [place] [address] PCP - General Family Medicine 08/27/17 documented as of this encounter
--- OUTSIDE RECORDS SUMMARY | 2025-02-22 10:33 | XMS_ITS | Clinical Summary ---
Author Organization [employer] tem Address [id number] [address] 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 Active qdboyaoo-vllq-C A-calcium &mins (THERAGRAN-M) 9 mg iron-400 mcg [...] (04/20/2019): Added automatically from request for surgery [id number] Lumbar spondylosis 10/06/2018 Disorder of sacrum 10/06/2018 Lumbosacral spondylosis without myelopathy 08/30 Overview (08/30/2018): Added automatically from request for surgery [id number] Family History Medical History Relation Name Comments [...] Date Last Done Comments Depression Screening 1968 Tobacco Screening 1968 DTaP,Tdap and Td Vaccines (1 - Tdap) 1975 Zoster (Shingles) Vaccine (1 of 2) 2006 Abdominal Aortic Aneurysm (A AA) Screen 2021 Fall Risk Screening 2021 Adult BMI Screening 01/09/2024 01/08/2023 Influenza Vaccine 03/27/2025 05/21/2022, , 04/25/2020, Additional history exists Medical Devices Implanted Type Area Hospital Scientist Device Identifier Shelf Expiration Date Model / Serial / Lot Lens Iol Ultrasert 15.0d - [id number] - [id number] Implanted:Qty: 1 on 12/25/2022 by Montse Eduardo MD at [facility] Lens Right: Eye [employer] 01/13/2025 AU00T0 15.0 / [id number] / NA Lens Iol Ultrasert 17.0d - [id number] - [id number] Implanted:Qty: 1 on 01/08/2023 by Montse Eduardo MD at [facility] Lens Left: Eye [employer] 10/12/2024 AU00T0 17.0 / [id number] / NA Insurance * Guarantor: Rigo Bolaños Jr. Account Type Relation to Patient Date of Phone Billing Address Personal/Family Self 1955 [address] [place] [address] [employer] Care Teams Rush Seater Relationship Specialty Start Date End Date Mary Alice Schultz APRN-BASIM [facility] [place] [address] PCP - General Family Medicine 08/27/17
[2025-02-22 11:07] LABS: Hematocrit 43.6 % (42.0-54.0); Hemoglobin 15.4 g/dL (14.0-18.0); Immature Granulocytes Abs Auto 0.02 10^3/uL (0.00-0.03); Immature Granulocytes Pct Auto 0.2 % (0.0-0.5); Lymphocytes Absolute Auto 1.8 10^3/uL (1.2-3.8); Mean Corpuscular HGB Conc 35.3 g/dL (29.9-35.2); Mean Corpuscular Hemoglobin 29.7 pg (25.9-34.0); Mean Corpuscular Volume 84.2 fL (80.0-94.0); Platelet Count 207 10^3/uL (150-450); Red Blood Count 5.18 10^6/uL (4.70-6.10); White Blood Count 10.2 10^3/uL (4.0-11.0)
[2025-02-22 11:19] LABS: Glucose Urine UA NEGATIVE (NEGATIVE)
[2025-02-22 11:22] LABS: Alanine Aminotransferase 90 U/L (16-63); Albumin Globulin Ratio 1.1; Albumin Level 4.0 g/dL (3.4-5.0); Alkaline Phosphatase 87 U/L (46-116); Anion Gap 13.9; Aspartate Amino Transferase 21 U/L (15-37); Blood Urea Nitrogen 11.0 mg/dL (7.0-18.0); Calcium 9.4 mg/dL (8.5-10.1); Carbon Dioxide 30.0 mmol/L (21.0-32.0); Chloride 100 mmol/L (98-107); Estimated GFR (African America >60 (>=60 mL/min/1.73m^2); Estimated GFR (Non-African Ame >60 (>=60 mL/min/1.73m^2); Globulin 3.6 g/dL; Glucose 165 mg/dL (74-106); Lipase 51.0 U/L (16.0-77.0); Potassium 3.9 mmol/L (3.5-5.1); Sodium 140 mmol/L (136-145); Total Protein 7.6 g/dL (6.4-8.2)
--- NOTE | 2025-02-22 11:22 | XR_ITS ---
The [address] [address] Patient Name: SHANNON DANIELS MRN: [id number] date: 1955 Sex: M Assigned Patient Location: ER Current Patient Location: ER Accession/Order Number: [id number] Exam Date: 02/22/2025 11:36 Report Date: 02/22/2025 11:38 At the request of: PHYLLIS LADD MD Procedure: XR acute abdomen series XR acute abdomen series 02/22/2025 11:23 AM SIGNS AND SYMPTOMS: Abdominal pain with constipation PROTOCOL: Frontal radiographs of the chest, abdomen, and pelvis COMPARISON: 01/20/2025 FINDINGS: The trachea is midline. The heart and mediastinal structures are within normal limits. The lung parenchyma is clear. The bony thorax is intact. There is a dextro convex curvature of the thoracic spine with degenerative changes noted in the thoracic spine and shoulders. No radiographic evidence of free air. Air-filled dilated loops of small and large bowel are noted diffusely. Stool and bowel gas reaches the rectum. This may represent a diffuse ileus. Degenerative changes are noted in the lumbar spine and hips. XR/XR acute abdomen series IMPRESSION: No acute cardiopulmonary pathology. Air-filled dilated loops of small and large bowel are noted diffusely. Stool and bowel gas reaches the rectum. This may represent a diffuse ileus. No radiographic evidence of free air. Impression dictated by: Moe Carter M.D. 02/22/2025 11:38 AM Dictation Location: [place] [address] Electronically authenticated by: [id number] Y Date: 02/22/2025 11:38
[2025-02-22] MEDS: 0.9 % SODIUM CHLORIDE 1,000 ML 999 ML IV (11:24)
[2025-02-22 11:31] LABS: Cast Seen? NONE SEEN #/LPF (NONE SEEN); Crystals Seen? None Seen #/HPF (None Seen)
[2025-02-22 11:32] LABS: Urine Culture Indicated NO
[2025-02-22 12:48] VITALS: BP 150/90; PULSE 88; O2SAT 95
--- NOTE | 2025-02-22 14:43 | ED.GENADUL1 ---
HPI HPI - General Adult General Chief complaint: Abdominal Pain Stated complaint: ABDOMINAL PAIN Time Seen by Provider: 02/22/25 10:58 Source: patient Mode of arrival: walk-in History of Present Illness HPI narrative: Patient is a 69-year-old male who sent to the ER from his PCP office secondary to concerns for constipation. Patient says that he has been having increase in flatulence. Patient states that he did have a bowel movement yesterday. Patient is having some abdominal distention. Patient has not been burping more. Patient has no fever or chills. No chest pain or shortness of breath. Patient was sent from his PCP office to the ER secondary constipation. Patient has no difficulty urinating. He no frequency urgency or burning. No acute complaints. All systems are negative except as noted/marked. All systems reviewed and otherwise negative. Nurses note and vital signs reviewed and patient is not hypoxic. General: The patient appears well and in no apparent distress. Patient is resting comfortably on cart. Patient is not toxic, lethargic, or listless Skin: Warm, dry, no pallor noted. There is no rash noted. No petechiae, purpura. Head: Normocephalic, atraumatic Eye: Normal conjunctiva, no drainage, EOMI. PERRL Ears, Nose, Mouth, and Throat: oral mucosa is moist. Nares patent. Mouth without vesicles. Cardiovascular: Regular Rate and Rhythm, no murmur, gallop, rub Respiratory: Patient is in no distress, no accessory muscle use, lungs are clear to auscultation, no wheezing, rales or rhonchi Back: non-tender, no CVA tenderness bilaterally to percussion. No CT LS midline pain GI: Soft, morbidly obese, patient has mild left lower and right lower quadrant tenderness palpation, no peritoneal signs. No rigidity. No flank pain bilateral. No tenderness to palpation, no masses appreciated. No rebound, guarding, or rigidity noted. No distention Musculoskeletal: Patient has full range of motion of all of the extremities, no motor, sensory, or focal neurological deficits Neurological: A&O x4, normal speech Psychiatric: Cooperative; patient is admittedly anxious Related Data Home Medications ?Medication ?Instructions ?Recorded ?Confirmed carvedilol 12.5 mg tablet 12.5 mg PO Q12H 02/22/25 02/22/25 duloxetine 30 mg capsule,delayed 30 mg PO DAILY 02/22/25 02/22/25 release gabapentin 100 mg capsule 100 mg PO Q12H 02/22/25 02/22/25 latanoprost 0.005 % eye drops 1 drp ophthalmic (eye) DAILY 02/22/25 02/22/25 lisinopril 20 1 tab PO DAILY 02/22/25 02/22/25 mg-hydrochlorothiazide 25 mg tablet metformin 1,000 mg tablet 1,000 mg PO BID 02/22/25 02/22/25 pravastatin 40 mg tablet 40 mg PO DAILY 02/22/25 02/22/25 semaglutide 1 mg/dose (4 mg/3 mL) mg subcut 02/22/25 subcutaneous pen injector (Ozempic) Previous Rx's ?Medication ?Instructions ?Recorded dicyclomine 20 mg tablet 20 mg PO TID PRN abdominal pain #7 02/22/25 tabs ondansetron 4 mg disintegrating 4 mg PO Q4H PRN nausea and 02/22/25 tablet vomiting 3 days #6 tabs Allergies Allergy/AdvReac Type Severity Reaction Status Date / Time No Known Drug Allergies Allergy Verified 02/22/25 10:26 PFSH PFSH Social History Little interest or pleasure in doing things: not at all Feeling down, depressed, or hopeless: not at all Exam Constitutional Vital Signs, click to edit/add: Last Vital Signs Temp 98.3 F 02/22/25 10:30 Pulse 88 02/22/25 12:48 Resp 16 02/22/25 12:48 BP 150/90 H 02/22/25 12:48 Pulse Ox 95 02/22/25 12:48 O2 Del Method Room Air 02/22/25 12:48 Course Vital Signs Vital signs: Vital Signs Temperature 98.3 F 02/22/25 10:30 Pulse Rate 89 02/22/25 10:30 Respiratory Rate 18 02/22/25 10:30 Blood Pressure 176/103 H 02/22/25 10:30 Pulse Oximetry 95 02/22/25 10:30 Oxygen Delivery Method Room Air 02/22/25 10:30 Temperature 98.3 F 02/22/25 10:30 Pulse Rate 88 02/22/25 12:48 Respiratory Rate 16 02/22/25 12:48 Blood Pressure 150/90 H 02/22/25 12:48 Pulse Oximetry 95 02/22/25 12:48 Oxygen Delivery Method Room Air 02/22/25 12:48 Medical Decision Making [facility] Narrative Medical decision making narrative: Patient seen and examined: Patient have IV, labs, fluids, x-ray done. Differential diagnosis includes but is not limited to: Obstruction, constipation, dehydration, kidney stone, UTI, colitis Diagnostics and management: Patient will have laboratory studies Relevant laboratory interpretation: White blood cell count 10, glucose 165, urine protein 30, trace ketone Radiological studies: Please see the formal radiological report. Patient x-ray report shows air-filled dilated loops of small and large bowel are noted diffusely, stable bowel gas which is the rectum, possible early ileus. No free air. No obstruction. Reevaluation: Patient feels better after IV fluids. Patient is having mild abdominal cramping. Patient has no severe pain. Shared decision making: I discussed with the patient the necessary laboratory findings and radiological findings. Social barriers to healthcare: There are no food insecurities, there is no issue with transportation, there are no insurance barriers. Disposition: I discussed with the patient labs, x-ray finding. We discussed at length on clear liquids for the next 2 or 3 days, using MiraLAX or magnesium citrate, and following up with PCP. Patient understands return back to ER if intractable abdominal pain, nausea, vomiting, or if he is not passing flatulence or stool within 24 hours. Patient understands this, he has a nonsurgical abdomen at discharge Lab Data Labs: Lab Results 02/22/25 02/22/25 Range/Units 10:35 10:45 WBC 10.2 (4.0-11.0) 10^3/uL RBC 5.18 (4.70-6.10) 10^6/uL Hgb 15.4 (14.0-18.0) g/dL Hct 43.6 (42.0-54.0) % MCV 84.2 (80.0-94.0) fL MCH 29.7 (25.9-34.0) pg MCHC 35.3 H (29.9-35.2) g/dL RDW 13.2 (11.0-15.0) % Plt Count 207 (150-450) 10^3/uL MPV 10.2 (9.5-13.5) fL Neut % (Auto) 73.4 (43.0-75.0) % Lymph % (Auto) 17.8 L (20.5-60.0) % Kleberg % (Auto) 7.3 (1.7-12.0) % Eos % (Auto) 1.0 (0.9-7.0) % Baso % (Auto) 0.3 (0.2-2.0) % Neut # (Auto) 7.5 H (1.4-6.5) 10^3/uL Lymph # (Auto) 1.8 (1.2-3.8) 10^3/uL Kleberg # (Auto) 0.8 (0.3-0.8) 10^3/uL Eos # (Auto) 0.1 (0.0-0.7) 10^3/uL Baso # (Auto) 0.0 (0.0-0.1) 10^3/uL Abs Immat Gran (auto) 0.02 (0.00-0.03) 10^3/uL Imm/Tot Granulo (auto) 0.2 (0.0-0.5) % Sodium 140 (136-145) mmol/L Potassium 3.9 (3.5-5.1) mmol/L Chloride 100 (98-107) mmol/L Carbon Dioxide 30.0 (21.0-32.0) mmol/L Anion Gap 13.9 BUN 11.0 (7.0-18.0) mg/dL Creatinine 0.79 (0.70-1.30) mg/dL Est GFR ( Amer) >60 (>=60 mL/min/1.73m^2) Est GFR (Non-Af Amer) >60 (>=60 mL/min/1.73m^2) BUN/Creatinine Ratio 13.9 Glucose 165 H (74-106) mg/dL Calcium 9.4 (8.5-10.1) mg/dL Total Bilirubin 0.6 (0.2-1.0) mg/dL AST 21 (15-37) U/L ALT 90 H (16-63) U/L Alkaline Phosphatase 87 (46-116) U/L Total Protein 7.6 (6.4-8.2) g/dL Albumin 4.0 (3.4-5.0) g/dL Globulin 3.6 g/dL Albumin/Globulin Ratio 1.1 Lipase 51.0 (16.0-77.0) U/L Urine Color Yellow (YELLOW) Urine Clarity Clear (CLEAR) Urine pH 6.0 (5.0-9.0) Ur Specific [place] 1.020 (1.005-1.025) Urine Protein 30 A (NEG/TRACE) mg/dL Urine Glucose (UA) Negative (NEGATIVE) mg/dL Urine Ketones Trace A (NEGATIVE) mg/dL Urine Occult Blood Negative (NEGATIVE) Urine Nitrite Negative (NEGATIVE) Urine Bilirubin Negative (NEGATIVE) Urine Urobilinogen 1.0 (0.2-1.0) EU/dL Ur Leukocyte Esterase Negative (NEGATIVE) Urine RBC None seen (0-2) #/HPF Urine WBC 0-2 A (NONE SEEN) #/HPF Ur Squamous Epith Cells Rare (NONE/RARE) #/LPF Urine Crystals None seen (None Seen) #/HPF Urine Bacteria Trace A (NONE SEEN) #/HPF Urine Casts None seen (NONE SEEN) #/LPF Urine Mucus Moderate A (NONE SEEN) Ur Culture Indicated? No Discharge Plan Discharge Chief Complaint: Abdominal Pain Clinical Impression: Abdominal pain, Constipation Patient Disposition: Home, Self-Care Time of Disposition Decision: 14:37 Condition: Fair Prescriptions / Home Meds: New dicyclomine 20 mg tablet 20 mg PO TID PRN (Reason: abdominal pain) Qty: 7 0RF ondansetron 4 mg tablet,disintegrating 4 mg PO Q4H PRN (Reason: nausea and vomiting) 3 Days Qty: 6 0RF No Action carvedilol 12.5 mg tablet 12.5 mg PO Q12H duloxetine 30 mg capsule,delayed release(DR/EC) 30 mg PO DAILY gabapentin 100 mg capsule 100 mg PO Q12H latanoprost 0.005 % drops 1 drp OPHTHALMIC (EYE) DAILY lisinopril-hydrochlorothiazide 20-25 mg tablet 1 tab PO DAILY metformin 1,000 mg tablet 1,000 mg PO BID pravastatin 40 mg tablet 40 mg PO DAILY Ozempic 1 mg/dose (4 mg/3 mL) pen injector SUBCUT Print Language: Irish Instructions: Constipation (ED), Abdominal Pain (ED), Ileus (ED) Additional Instructions: Education on ileus was done at bedside and on discharge paperwork. If you are having no bowel movements or not passing any gas for more than 24 hours, return back to the ER for reevaluation. Use Zofran if needed for nausea. Use Bentyl as needed for abdominal cramping Use MiraLAX twice a day for the next 2 or 3 days to help with bowel production. Use 1 bottle of magnesium citrate today and 1 bottle of magnesium citrate tomorrow if needed to help with stool production. If you are having diarrhea, do not stop with bowel prep, you have a moderate amount of stool in your colon. Alternate Tylenol and either Motrin, Advil, or ibuprofen every 4 hours to help with pain. Maximum dose of Tylenol is 3000 mg a day. Maximum dose of either Motrin, Advil, or ibuprofen is 2400 mg a day. Referrals: Onelia Simon NP [Primary Care Provider, Family Practice] - 1 week
== END 2025-02-22 14:57 | disposition home or self-care (01) ==
PROVIDERS: Emergency Provider Emergency Medicine; PCP Nurse Practitioner
DX: K59.00 Constipation, unspecified (principal); R10.9 Unspecified abdominal pain
CPT/HCPCS: 36415; 74022; 80053; 81001; 83690; 85025; 99285

== ENCOUNTER 2025-06-30 12:31 | Outpatient (OUT) | payer MEDICARE, SELFPAY ==
--- OUTSIDE RECORDS SUMMARY | 2025-06-29 09:38 | XMS_ITS | Continuity of Care Document ---
Author Organization [facility] Address [address] [place] [address] Phone Care Team Providers Care Bombsight Specialist Name Role Phone NON STAFF Primary Care Provider Juan Bateman DO Attending Provider Onelia Simon SENIOR IOS DEVELOPER-C Primary Care Provider Onelia Simon SENIOR IOS DEVELOPER-C Attending Provider Care Teams Patient Care Team Team Status: Active Member Role/Relationship Status Dates Onelia Simon NP-C Primary Care Provider Active Visit Care Team Team Status: Inactive Member Role/Relationship Status Dates NON STAFF Primary Care Provider Active Start: May 19, 2025 End: May 19kamilah Ayers DOAttending ProviderActiveStart: May 19, 2025 End: May 19, 2025 Visit Care Team Team Status: Inactive Member Role/Relationship Status Dates NON STAFF Primary Care Provider Active Start: June 02, 2025 End: June 02kamilah Ayers DOAttstella ProviderActiveStart: June 02, 2025 End: June 02, 2025 Patient Care Team Team Status: Inactive Member Role/Relationship Status Dates Onelia Simon SENIOR IOS DEVELOPER-C Primary Care Provider Active Start: June 29, 2025 End: June 29, 2025Onelia Simon NP-CAttending ProviderActiveStart: June 29, 2025 End: June 29, 2025 Chief Complaint and Reason for Visit Chief Complaint Admit Date Right Thyroid Mass May 19, 2025 2 :16pm Right Thyroid Mass June 02, 2025 6 :07am follow up June 29, 2025 1 :42pm Reason for Visit Admit Date Adrenal mass, left June 29, 2025 1 :42pm Bilateral edema of lower extremity Decem 2024 1:42pm Class 3 obesity June 29, 2025 1 :42pm Essential hypertension June 29 1:42pm PARAS (generalized anxiety disorder) Decem 2024 1:42pm Major depressive disorder, recurrent epi sode, moderate June 29, 2025 1:42pm Mixed hyperlipidemia June 29, 2025 1:42pm JEFF (obstructive sleep apnea) June 292024 1:42pm Right thyroid nodule June 29, 2025 1:42pm Seborrhea capitis in adult June 29, 2025 1:42pm Type 2 diabetes mellitus wit h diabetic neuropathy, without long-term curren June 29, 2025 1:42pm Allergies, Adverse Reactions, Alerts Allergen Type Severity Reaction Last Updated Verified Status No Known Allergies Allergy Unknown June 29, 2025 2:15pmYesActive Social History Smoking Status Status Start Date End Date Date of Observa tion Ex-smoker (finding) June 02, 2025 6:44am Observation Status Observation Response Date of Response Legal Sex [facility] (finding) [facility] 1955 Family History Relationship Condition Age at Onset Recorded Date/T shamika father Malignant neoplasm of colon Unknown Diabetes mellitusUnknownDeceasedUnknownCerebrovascular accident (CVA)Unknown Malignant neoplasm of lungUnknownmotherDiabetes mellitusUnknownPresence of cardiac pacemakerUnknownAtrial fibrillationUnknownHeart diseaseUnknownfamily memberMalignant neoplasm of colonUnknown Problems Active Problems Problem Diagnosis/Recorded Date Onset Date Stat us Seborrhea capitis in adult June 29, 2025 2:29pm U nknown Active Bilateral edema of lower extremity June 01, 2025 7:16am Unknown Active Lumbosacral spondylosis with out myelopathy June 28, 2025 7:48am Unknown Active Right thyroid nodule March 28, 2025 12:33pm Unkno wn Active Class 3 obesity June 01, 2025 7:15am Unknown Active JEFF (obstructive sleep apnea) June 01, 2025 7:15a m Unknown Active PARAS (generalized anxiety disorder) April 03, 2025 9:31am Unknown Active Screening for prostate cancer June 28, 2025 7:49a m Unknown Active Dyspnea on exertion June 28, 2025 7:47am Unknown Active Onychomycosis June 28, 2025 7:48am Unknown A ctive Generalized abdominal pain June 01, 2025 7:17am U nknown Active Chronic right hip pain June 01, 2025 7:15am Unkno wn Active Mixed hyperlipidemia May 31, 2025 8:37am Unknown Active Essential hypertension April 03, 2025 9:30am Unkn own Active Type 2 diabetes mellitus wit h diabetic neuropathy, without long-term current use of insulin June 29, 2025 6:51am Unknown Active Bilateral chronic knee pain June 01, 2025 7:15am Unknown Active Major depressive disorder, r ecurrent episode, moderate April 03, 2025 9:34am Unknown Active Right hip pain June 28, 2025 7:49am Unknown Active Adrenal mass, left June 01, 2025 7:17am Unknown Active Vitamin D deficiency June 01, 2025 7:16am Unknown Active Hypercalcemia June 01, 2025 7:16am Unknown A ctive Medications Medication Status Dose Units Route Directions Qty Days Refills S tart Date Stop Date End Date Reason(s) Instructions Adherence Lisinopril-Hydrochlorothiazide 20-25 mg tablet Discontinued 1 TAB PO Daily 90 0Sept2024 9:29amOctober 2024 1:50pmPrimary hypertension Essential (primary) hypertensionDuloxetine 60 mg capsule,delayed release(DR/EC) Icgyrqbldghr58ODIPXzdwk013Kngyikcvv 8th, 2025 9:31amOctober 2024 1:50pm Generalized anxiety disorder Moderate episode of recurrent major depressive disorder Generalized anxiety disorder Major depressive disorder, recurrent, moderateCarvedilol 12.5 mg tabletActive 12.5MGPOTwice pexnw2059Opmrdwki 5th, 2025 8:34amPrimary hypertension Essential (primary) hypertensionmust administer with a meal/foodComplies with drug therapyDuloxetine 60 mg capsule,delayed release(DR/EC)Yjuwxr24CALNWrcuy 2024 8:35amModerate episode of recurrent major depressive disorder Generalized anxiety disorder Major depressive disorder, recurrent, moderate Generalized anxiety disorderComplies with drug therapyLisinopril- Hydrochlorothiazide 20-25 mg pmfdyyVvztbg7NZDNBMkopz 2024 8:35amPrimary hypertension Essential (primary) hypertensionComplies with drug therapyMetformin 1,000 mg hmcukdVohfkd1431ZTYRPmtte daily with gzoez9780Tivguhmz2024 12:00amType 2 diabetes mellitus, without long-term current use of insulin Type 2 diabetes mellitus without complicationsComplies with drug therapy Pravastatin 40 mg mxkyteOltrww09SDCIHioyf at obchmpw892Rydiwkcb2024 8:36am Mixed hyperlipidemia Mixed hyperlipidemiaComplies with drug therapySemaglutide (Ozempic) 1 mg/dose (4 mg/3 mL) pen puetixgdAtoyld7OQNGNJFFtdyex week90November 5th, 2025 8:37amType 2 diabetes mellitus, without long-term current use of insulin Type 2 diabetes mellitus without complicationsComplies with drug therapyAspirin 81 mg yrcbzpjHlzwvc27QCZQWhckm 2024 8:38amType 2 diabetes mellitus, without long-term current use of insulin Type 2 diabetes mellitus without complicationsOn Hold: Resume on 06/07/25. Complies with drug therapyBlood-Glucose Sensor (Freestyle Anamaria 3 Plus Sensor) deviceDiscontinued0.Cdhzh15Udtfwlsy2024 12:00amNovehonorhealth [facility] 2024 7:22am Type 2 diabetes mellitus, without long-term current use of insulin Type 2 diabetes mellitus without complicationsAs directedBlood-Glucose Sensor (Freestyle Anamaria 3 Plus Sensor) deviceActive0.Qydqx756Wdkwvhhj2024 7:19am Type 2 diabetes mellitus, without long-term current use of insulin Type 2 diabetes mellitus without complicationschange once every 15 daysMetformin 500 mg glypwiLtvogfmzkqar5709URXBVdfql dailySept2023 11:00pmMay 31, 2025 8:36amCarvedilol 12.5 mg tqsnpjWfudnarufwen04.5MGPOTwice daily April 17, 2024 11:00pmNov2024 8:37ammust administer with a meal/foodLisinopril-Hydrochlorothiazide 20-25 mg mlmxsiYxbipphespgx4UGAMSMvypu April 17, 2024 11:00pmSept2024 9:30amDuloxetine (Cymbalta) 30 mg capsule,delayed release(DR/EC)Xitegazhzodg65QZDWBvjdjHxcloiynv 22nd, 2024 11:00pmSept2024 9:34amPravastatin 40 mg wkurucQnuqumggvbbh38AFUBGahuc morningSeptember 2023 11:00pmNov2024 8:37amAspirin 81 mg rnrkqcuRdzqdnbxnzuk53UUGXKedcx morningSept2023 11:00pmNov2024 8:46bdBuyjiqorfwft-Oowkzwfz-Jdvbpb (Multivitamin 50 Plus) pprygkUtymhd9BUD POEver morningSept2023 11:00pmComplies with drug therapySemaglutide (Ozempic) 1 mg/dose (4 mg/3 mL) pen ghjopbzrSzzijhdlmtie9UTUWQEBAwvrwa week May 18, 2025 11:00pmNov2024 8:37amLatanoprost 0.005 % drops Wtysow2SBENCWFC-VWGRKgxlo morningOctober 2024 11:00pmComplies with drug therapyLisinopril-Hydrochlorothiazide 20-25 mg oxfolrHifdbsddwstp7XSNACSabex morningOctober 2024 11:00pmMay 31, 2025 8:37amDuloxetine 60 mg capsule,delayed release(DR/EC)Smybtljfzxrx96ICXDUkwyu morningOctober 2024 11:00pmMay 31, 2025 8:37amKetoconazole 2 % nmpumayPbjfcx7XLEFPZGMNBXBK Twice a Evku8861Xaukypnk 2024 12:00amSeborrhea capitis in adult Seborrhea capitisuse twice a week for 8 weeks, then use as neededComplies with drug therapy Immunizations Immunization Event Date Not Given Reason Dose Number Vendor Management Consultant Lot Number Reason(s) Given Vaccine Information Statement (VIS) Detail Administration Location Tetanus, Diphtheria adult, 5 Lf pres free abs [place] dane 2022 Procedures Procedure Date Performed Status OR Thyroidectomy/Hemithyroidectomy (Right) Novem 2024 8:15am completed Relevant Diagnostic Tests and/or Laboratory Data Laboratory Results Test Collection Date/Time Result Date/Time Result Interpretation Reference Range Result Comment Performing Site Corrected White Blood Count May 19, 2025 1:54pm May 19, 2025 2:15pm 7.8 10*3/uL 4.1-10.5[facility] [id number] [address] [place] [address] 39374Msqlcfyzulc WBC CountOct2024 1:54pmOctober 2024 2:15pm7.8 10*3/uL4.1-10.5FK[facility] [id number] [address] [place] [address] 30944Kmi Blood CountOct2024 1:54pmOct2024 2:15pm4.93 10*6/uL3.90-5.60[facility] [id number] [address] [place] [address] 09669YjhqjylytfQdiigbv 24th, 2025 1:54pmOctober 2024 2:15pm 14.6 g/dL13.0-17.0[facility] [id number] [address] [place] [address] 30872TbjlcwcoblEsxqbfg 2024 1:54pmOct2024 2:15pm 41.4 %38.8-50.0[facility] [id number] [address] [place] [address] 26610Fynx Corpuscular VolumeOct2024 1:54pmOctober 2024 2:15pm84.0 fL83.5-101[facility] [id number] [address] [place] [address] 82924Tmag Corpuscular HemoglobinOctober 2024 1:54pmOctober 2024 2:15pm29.7 pg27.5-35.2FK[facility] [id number] [address] [place] [address] 93448Mlhl Corpuscular Hemoglobin ConcentOctober 2024 1:54pm May 19, 2025 2:15pm35.4 g/dL32.5-35.6FK[facility] [id number] [address] [facility] 22012Hrc Cell Distribution WidthOct2024 1:54pmOctober 2024 2:15pm14.6 %12.0-14.8[facility] [id number] [address] [facility] 10486Mcibeywr CountOct2024 1:54pmOct2024 2:69tn510 10*3/aZ067-430YucgsseuxMercy Health Allen Hospital Ctr [id number] [address] [facility] 13904Jaid Platelet VolumeOct2024 1:54pmOct2024 2:15pm8.3 fL6.6-10.1FK[facility] [id number] [address] [facility] 32081Ljipiljaufj (%) (Auto)May 19, 2025 1:54pmOct2024 2:15pm67.5 %.[facility] [id number] [address] [facility] 82837Upvpiihpgyh (%) (Auto)May 19, 2025 1:54pmOct2024 2:15pm23.0 %.[facility] [id number] [address] [facility] 76864Hqhmvbeyc (%) (Auto)May 19, 2025 1:54pmOct2024 2:15pm6.9 %.[facility] [id number] [address] [facility] 67512Chjyytpieie (%) (Auto)May 19, 2025 1:54pmOctober 2024 2:15pm1.4 %.[facility] [id number] [address] [facility] 59632Keyqifnpg (%) (Auto)May 19, 2025 1:54pmOctober 2024 2:15pm1.2 %.[facility] [id number] [address] [facility] 21696Ktujinspf RBC Relative Count (auto)May 19, 2025 1:54pm May 19, 2025 2:15pm0.1 /100{WBC}0-0.5FK[facility] [id number] [address] [place] [address] 64131Zjegwycaztv # (Auto)May 19, 2025 1:54pmOctober 2024 2:15pm5.3 10*3/uL1.8-7.7FK[facility] [id number] [address] [place] [address] 82157Vpgfnbwuaev # (Auto)May 19, 2025 1:54pmOctober 2024 2:15pm1.8 10*3/uL1.00-4.8[facility] [id number] [address] [place] [address] 14193Zccmizagx # (Auto)May 19, 2025 1:54pmOctober 2024 2:15pm0.5 10*3/uL0.0-0.8[facility] [id number] [address] [place] [address] 96396Cynxhhxgjdy # (Auto)May 19, 2025 1:54pmOctober 2024 2:15pm0.1 10*3/uL0.0-0.45[facility] [id number] [address] [place] [address] 73021Pfpvlmzsz # (Auto)May 19, 2025 1:54pmOctober 2024 2:15pm0.1 10*3/uL0.0-0.2[facility] [id number] [address] [place] [address] 79092Yjbhkqg LevelOctober 2024 1:54pmOctober 2024 2:58pm 120 mg/dLAbove high kuvzjx18-103FJL recommended reference rangeRandom Glucose Reference Range is dependent on time and content of last meal. Glucose of more than 200 mg/dL in a nonstressed, ambulatory subject supports the diagnosisof Diabetes Mellitus.[facility] [id number] [address] [place] [address] 60270Zwyba Urea NitrogenOct2024 1:54pmOctober 2024 2:58pm16 mg/dL7-25[facility] [id number] [address] [facility] 56004LxxunovyvpToasisp 2024 1:54pmOctober 2024 2:58pm 0.77 mg/dL0.70-1.30[facility] [id number] [address] [facility] 62543Bulmxrhux GFR (CKD-EPI)May 19, 2025 1:54pmOctober 2024 2:58pm> 60.0 mL/MinMercy Health [facility]tr [id number] [address] [facility] 58679Aviszg LevelOctober 2024 1:54pmOctober 2024 2:58pm 138 mmol/B335-846HzpchgfwkMercy Health [facility]tr [id number] [address] [place] 7628370Potassium LevelOctober 2024 1:54pmOctober 2024 2:58pm4.0 mmol/L3.5-5.1FK[facility] [id number] [address] [facility] 86111Ozdeqapa LevelOctober 2024 1:54pmOctober 2024 2:65qt101 mmol/I86-805AftuxubnyMercy Health Allen Hospital Ctr [id number] [address] [place] 7628370Carbon Dioxide LevelOctober 2024 1:54pmOctober 2024 2:58pm29.7 mmol/L21.0-31.0[facility] [id number] [address] [facility] 68234Zdhbf GapOctober 2024 1:54pmOctober 2024 2:58pm11.3 mEq/L6.0-15.0[facility] [id number] [address] [place] 7628370Calcium LevelOctober 2024 1:54pmOctober 2024 2:58pm 9.9 mg/dL8.6-10.3FK[facility] [id number] [address] [facility] 65257Bmmks ThyroxineOctober 2024 1:54pmOctober 2024 2:58pm9.35 ug/dL5.39-11.82[facility] [id number] [address] [facility] 15749Jisvl TriiodothyronineOctober 2024 1:54pmOctober 2024 7:08pm1.18 ng/mL0.87-1.78[facility] [id number] [address] [facility] 17103Uganbpi Stimulating Hormone 3rd GenOctober 2024 1:54pm May 19, 2025 2:58pm0.83 u[iU]/mL0.45-5.33[facility] [id number] [address] [facility] 6554544-Jecniws Vitamin D TotalOctober 2024 1:54pmOctober 2024 7:08pm31.2 ng/xW00-486KXJXMAO D STATUS 25(OH)VITAMIN D RANGE (ng/mL) Deficient <20 Insufficient 20 to <56Ewffjrxhgy27 to 100Reference: Chema MF,Eduardo ALBA, Jayden GONZALES, et al. Evaluation,treatment, and prevention of vitamin D deficiency; an Endocrine Society clinical practice guideline. JCEM. 2010; 96(7):1911-30.[facility] [id number] [address] [facility] 52503Virogejlwpv Hormone (Intact)May 19, 2025 1:54pmOctober 2024 2:53pm70.3 pg/qY74-26LbuzencftMercy Health Allen Hospital Ctr [id number] [address] [facility] 69835Aloaevcn Creatinine Clearance (ChemOctober 2024 1:54pm May 19, 2025 2:58pmN/[facility] [id number] [address] [facility] 70431Slsxbjt GlucoseNovember 2024 10:21amNovember 2024 10:84zs448 mg/dLRandom Glucose Reference Range is dependent on time and content of last meal. Glucose of more than 200 mg/dL in a nonstressed, ambulatory subject supports the diagnosis of Diabetes Mellitus.Point of Care testingBedside Glucose CommentNov2024 10:21amNovember 2024 10:51weTdd3: cleaned meterPoint of Care testing Vital Signs Vital Reading Result Reference Range Collection Date/Time Height 66 [in_i] June 02, 2025 6:34qfDylliy434.90 kgNov2024 6:36amBody Isgfwwivsbx41.7 [degF]97.6-99.0June 02, 2025 10:05amHeart Rate92 /utg50-122 June 02, 2025 12:03pmRespiratory rate16 /jni25-25DilbeuruJune 02, 2025 1:06pm Oxygen saturation by Pulse ealukcun03 %95-100June 02, 2025 1:06pmBP Lqedgjxi158 mm[Hg]100-140June 02, 2025 12:03pmBP Qklotncod12 mm[Hg]60-100 June 02, 2025 12:03pmInhaled oxygen flow rate1 L/minJune 02, 2025 12:32weIccitr10 [in_i]June 29, 2025 1:37nfEaiwmk796.65 kgce2024 1:54pmBody Zhemqhzqdns28.5 [degF]97.6-99.0ce2024 1:54pmHeart Rate85 /qoh24-810Wmkbpzmu 4th, 2025 1:54pmRespiratory rate22 /vqj88-67IimabryuJune 29, 2025 1:54pmOxygen saturation by Pulse %95-100June 29, 2025 1:54pmBP Akublubx181 mm[Hg]100-140Decemb2024 1:54pmBP Dkmcfscsn03 mm[Hg] 60-100Decemb2024 1:54pmBMI (Body Mass Index)49.2 kg/r0Bnlqxwup 2024 1:54pm Advance Directives Advance Directive Response Recorded Date/ Time Advance Directives No August 14, 2017 4:50pm Insurance Providers Guarantor Rigo Bolaños JR Address [address] [place] [address]Hlhewfb Info.Home Phone: Coverage Status Update:2025 Payer Group Member ID Coverage Type Subscriber Relationship to Subscriber Effective Date Expiration Date Medicare Id: [id number] Catarina JR Miky Id: [id number] [address] [place] [address] [facility] Phone: [facility] [id number] E JR Miky Id: [id number] [address] [place] [address] Home Phone: Self Encounters Encounter Location(s) Arrival/Admit Date Discharge/Departure Date Discharge/Departure Disposition Provider(s) Departed Clinical -Pre-Surgica l Testing May 19, 2025 2:16pm May 19, 2025 2:17pm Discharged to home care or self care (routine discharge) Juan Ayers DO Departed Surgical Day Care -[facility] June 02, 2025 6:07am June 02, 2025 1:17pm Discharged to home care or self care (routine discharge) Juan Ayers DO Departed Physician/ Provider Office Visit -[facility] [place] June 29, 2025 1:42pm June 29, 2025 2:37pm Discharged to home care or self care (routine discharge) RAMIRO PetersonC Recent Diagnosis Onset Date Admit Date Adrenal mass, left Unknown June 29, 2025 1:42pm Bilateral edema of lower extremity Unknown June 29, 2025 1:42pm Class 3 obesity Unknown June 29 1:42pm Essential hypertension Unknown June 29, 2025 1:42pm PARAS (generalized anxiety disorder) Unknown June 29, 2025 1:42pm Major depressive disorder, r ecurrent episode, moderate Unknown June 29, 2025 1:42pm Mixed hyperlipidemia Unknown June 1:42pm JEFF (obstructive sleep apnea) Unknown 2024 1:42pm Right thyroid nodule Unknown June 1:42pm Seborrhea capitis in adult Unknown Decem 2024 1:42pm Type 2 diabetes mellitus wit h diabetic neuropathy, without long-term curren Unknown June 29 1:42pm Assessments Diagnosis Onset Date Resolution Status Admit Date Adrenal mass, left acuteDece2024 1:42pmBilateral edema of lower extremityacuteDecehonorhealth [facility] 2024 1:42pmClass 3 obesityacuteDece2024 1:42pmEssential hypertensionacuteDe2024 1:42pmGAD (generalized anxiety disorder) acute2024 1:42pmMajor depressive disorder, recurrent episode, moderateacuteDev[facility] 2024 1:42pmMixed hyperlipidemiaacuteDevalley hospital 2024 1:42pmOSA (obstructive sleep apnea)acuteDe2024 1:42pmRight thyroid noduleacuteDece2024 1:42pmSeborrhea capitis in adultacute June 29, 2025 1:42pmType 2 diabetes mellitus with diabetic neuropathy, without long-term currenacuteDeceer 2024 1:42pm Plan of Treatment Author Onelia Simon [facility] CenterAuthoGeising[facility] 2024 2:34pmPlease check blood pressure daily and record DASH diet Limit caffeine Take medication as directed Contact office if chest pain, pressures, dizziness, shortness of breath, swelling in the legs Recommend slow position changes if you develop dizziness with position changes current meds: carvedilol, lisinopril/HCTZ Check blood sugars daily, notify the office if <70 or > 200. Take medications (pills or insulin) as directed. Monitor for s/s of low blood sugar (sweaty, dizziness, nausea, vomiting, or shakiness). Watch for increase thirst, urination, and appetite as these can be signs of high blood sugar. Inspect your feet frequently monitor for open wounds, wear proper fitting shoes as well. Pt should attempt to remain as physical active as chronic conditions allow, as well as trying to follow a diet lower in carbohydrates, and simple sugars. current meds: asa, statin, feliciano/HCTZ, metformin, ozempic a1c: 7.0% 06/29/25 You have a diagnosis of JEFF it is recommended that you wear your PAP device anytime while in bed sleeping. Not using the PAP device can increase your risk of elevated or uncontrolled blood pressure, atrial fibrillation, heart attack, stroke, and sudden . Compliance with PAP:no, stopped using d/t dry mouth, How many hours of use per night: Do you feel refreshed in the morning: Company that supplies your machine, tubing/filters etc: Doctor that manages your JEFF: we will re order on statin therapy check labs yearly and prn dose changes recommend diet low in fat and processed foods current meds: duloxetine PHQ 9=10 current med: duloxetine PARAS 7=11 on HCTZ recommend limiting sodium intake, elevate legs above level of heart as much as possible, compression stockings Discussed with patient their BMI (actual vs recommended). We have discussed lifestyle modifications: attempts to perform phsyical activity as chronic conditions allow, monitor dietary intake: increasing protein/fruits/veggies and lowering carb intake (unless contraindicated). Limit sodas, juices, sugary drinks, as well as alcohol consumption. had CT scan, favored an adenoma not definite, was referred to urology in [place] for this had recent partial thyroidectomy with dr quarles benign pathology labs have been ordered by ENT ketoconazole shampoo recheck at appt Future Tests Future scheduled test information is unavailable Pending Tests Test Name Ordered Date Scheduled Date Comprehensive Metabolic Panel June 29, 2025 6:56am Future Visits Future appointment information is unavailable Future Procedures Procedure Name Ordered Date Scheduled Date Post Anesthesia Tracer order June 02, 2025 7:03am June 02, 2025 7:15am Discharge Order June 02, 2025 9:50am Novemb er 2024 9:50am Dipstick and Microscopic June 29, 2025 6:56 am Complete Blood Count Auto DiffDecember 2024 6:56amLipid PanelDecember 2024 6:56amPSA Screen (Yearly Only)June 29, 2025 6:56amVitamin D 25 Hydroxy TotalDecember 2024 6:56amAMB POC Hgb Z3VIdywyrfe 2024 6:56amAMB POC Ur Microalb/Creat RatDecember 2024 6:56am Future Medications Future medication information is unavailable Patient Instructions Instruction Admit Date Know your Meds June 02, 2025 6 :07am Goals Acute Goals Author Authored Date Experience reduced anxiety * Identifies current stressors * Develops effective coping behaviors * Uses support services as appropriateOhio[facility]November 2024 1:17pmRemain free of complications [facility] 2024 1:17pmUnderstand preop/postop care/sensations * Verbalizes understanding of surgical procedure * Verbalizes understanding of sensations following surgery * Verbalizes understanding of post-op treatment planTriHealth [facility] Samar[facility] Hospital 2024 1:17pmReport pain at tolerable level * Uses pain scale appropriately * Identify options for pain control - Analgesics - Narcotics - Non-medication measuresTriHealth Good Samaritan Hospital 2024 1:17pmAbsence of imbalanced fluid volume s/s [facility] 2024 1:17pmAbsence of physical injury [facility] 2024 1:17pmAbsence of surgical site infection [facility] 2024 1:17pm Hospital Discharge Instructions Ambulatory Orders* AMB POC Hgb A1C Time Frame: 06/29/25, Location: Determined By Patient
--- OUTSIDE RECORDS SUMMARY | 2025-06-30 12:42 | XMS_ITS | CCD ---
Author Organization [facility] Care Team Providers Care Process Trainer Name Role Phone Ema Mitchell Unavailable SHAIKH Shadi RAM Attending Unavailable GEOFFWSHERMAN SOLITARIOIKH H Admitting Unavailable FAWWAD, PATINO H Primary Care Unavailable FAWWAD, PATINO H Admitting Unavailable FAWWAD, PATINO H Primary Care Unavailable FAWWAD, PATINO H Consulting Unavailable FAWWAJose Guadalupe PATINO H Attending Unavailable Ban Heaton Unavailable Shaikh Ram MD Primary Care Provider NON STAFF Primary Care Provider UnavailMD Van Pradhan Attending Provider [phone] Bakari Marina MD Primary Care Provider Malik ORACLE DEVELOPER, Samantha Unavailable [phone] Faisal Cr LPC Unavailable Unavailable Malik ORACLE DEVELOPER, Samantha Unavailable BAKARI MARINA Primary Care Physician Tiff Boo Attending Unavailable ONELIA SIMON Referring Unavailable NON STAFF Primary Care Provider UnavailTiff Castorena MD Attending Provider Onelia Simon Attending Provider [phone] Tiff Boo MD Other Provider Bakari Marina MD Primary Care Provider Malik ORACLE DEVELOPER, Samantha Unavailable Alfred ORACLE DEVELOPER-C, Onelia Rodriguez Attending Provider Juan Ayers DO Attending Provider Leanna WYNNE, Patino Primary Care Provider Faisal Cr LPC Unavailable Unavailable Home WYNNE, Bakari Primary Care Provider NON STAFF Primary Care Provider UnavailTiff Castorena MD Attending Provider [phone] Alfred ORACLE DEVELOPER-C, Onelia Rodriguez Attending Provider [phone] Tiff Boo MD Other Provider Juan Ayers DO Attending Provider EMMANUEL JIANG Attending Unavailable MALIKSAMANTHA COSTA Attending Unavailroger SMITHHJUAQUIN, ONELIA Attending Unavailable AICHHOLAlaina, ONELIA Attending Unavailable AICHHOLAlaina, ONELIA Attending Unavailable MURCEK, JUAN Rouse Attending Unavailable AICHHOLAlaina, ONELIA Referring Unavailable MURCEK, JUAN Rouse Referring Unavailable MURCEK, JUAN Rouse Attending Unavailable MURCEK, JUAN Rouse Attending Unavailable MURCEK, JUAN Rouse Referring Unavailable MALIKSAMANTHA JAQUEZ Attending UnavailFAISAL De Dios Attending Unavailable NELY, SAMANTHA Referring Unavailabl e NON STAFF Primary Care Unavailable Tiff Boo Admitting Unavailable Tiff Boo Attending Unavailable NON STAFF Primary Care Unavailable Onelia Simon Admitting Unavailable LuishOnelia welsh Attending Unavailable Tiff Boo Consulting Unavailable NON STAFF Primary Care Unavailable Juan Ayers Admitting Unavailable MurJuan quinonez Attending Unavailable Juan Ayers Admitting Unavailable Murcristiano, Juan Attending Unavailable NON STAFF Primary Care Unavailable Medications Current Medications MedicationDrug Class(es)DatesSig (Normalized)Sig (Original)3 ML semaglutide 1.34 MG/ML Pen Injector [Ozempic] (1 source)Start: 91-37-6935zalbtq 1 mg by subcutaneous injection every week Ozempic (1 mg dose) 4 mg/3 mL subcutaneous solution INJECT 1mg SUBCUTANEOUSLY (UNDER THE SKIN) oncea week Start Date: 03/08/25 Status: Ordered Repeat number: 1 ALPRAZolam 1 mg oral tablet (2 sources)Benzodiazepinetake 1 tablet by mouth every twelve hoursALPRAZolam 1 MG 1 tablet Orally Twice a day Activeascorbic acid 60 mg / beta carotene 5000 unt / copper sulfate 40 mg / dl-alpha tocopheryl acetate 30 unt / sodium selenite 0.04 mg / zinc oxide 40 mg oral tablet (20 sources)Vitamin CStart: 15-04-5815wson 1 tablet by mouth once dailyMultiple Vitamin (Multivitamin Adult) tablet Indications: Type 2 diabetes mellitus without complication, without long-term current use of insulin (HCC) Take 1 each by mouth Daily 90 tablet 10/31/2024tive End: 47-15-6782Fjviajzn Vitamin (Multivitamin Adult) tablet Orally 10/31/2024 Discontinued (Reorder)aspirin 81 mg oral tablet (20 sources)Platelet Aggregation Inhibitor, Nonsteroidal Anti-inflammatory Drug Start: 17-56-1901cwyl 2 capsules by mouth once daily in the morningAspirin 81 mg capsule Active 81 MG PO Every morning 90 0 May 31, 2025 8:38am Type 2 diabetes mellitus, without long-term current use of insulin Type 2 diabetes mellitus without complications OnHold: Resume on 06/07/25. Complies with drug therapyStart: 10-31-2024 End: 38-58-4107htfg 1 tablet by mouth in the morningaspirin 81 MG EC tablet Indications: Type 2 diabetes mellitus without complication, without long-term current use of insulin (HCC) Take 1 tablet (81 mg) by mouth in the morning. 90 tablet 10/31/2024 ActiveStart: 04-18-2024 End: 08-60-6541smrm 1 capsule by mouth once daily in the morningAspirin 81 mg capsule Discontinued 81 MG PO Every morning April 17, 2024 11:00pm May 31, 2025 8:38am End: 55-21-1217tmkubmo 81 MG chewable tablet Chew 81 mg in the morning. 03/24/2024 Discontinued (Duplicate order)Blood-Glucose Sensor (Freestyle Anamaria 3 Plus Sensor) device (2 sources)Start: 87-79-1649Ameik-Glucose Sensor (Freestyle Anamaria 3 Plus Sensor) device Active 0 .Route 2 June 0157:19am Type 2 diabetes mellitus, without long-term current use of insulin Type 2 diabetes mellitus without complications change once every 15 daysStart: 06-01-2025 End: 61-99-6135Nwqwr-Glucose Sensor (Freestyle Anamaria 3 Plus Sensor) device Discontinued 0 .Route 1 0 May 12:00am June 01, 2025 7:22am Type 2 diabetes mellitus, without long-term current use of insulin Type 2 diabetes mellitus without complications As directedcarvedilol 12.5 mg oral tablet (20 sources)alpha-Adrenergic Joaquin, beta-Adrenergic BlockerStart: 03-08-2025 take 1 tablet by mouth every twelve hourscarvedilol 12.5 mg Tab TAKE 1 TABLET BY MOUTH EVERY 12 HOURS Start Date: 03/08/25 Status: Ordered Repeat number: 1Start: 04-18-2024 End: 20-11-6533lnrv 1 tablet by mouth twice daily at mealtimeCarvedilol 12.5 mg tablet Active 12.5 MG PO Twice daily 180 0 May 31, 2025 8:34am Primary hypertension Essential (primary) hypertension must administer with a meal/food Complies with drug therapyStart: 04-18-2024 End: 20-83-8825izbp 1 tablet by mouth oncecarvedilol (Coreg) 12.5 MG tablet Indications: Essential (primary) hypertension Take 1 tablet (12.5mg) by mouth every 12 (twelve) hours 180 tablet 10/31/2024 ActiveStart: 37-06-6081xstu 1 tablet by mouth every twelve hourscarvedilol (Coreg) 12.5 MG tablet Indications: Essential (primary) hypertension (CMS/HCC) TAKE 1 TABLET BY MOUTH EVERY 12 HOURS 180 tablet 1 11/10/2023 Activetake 1 tablet by mouth every twelve hours carvedilol (Coreg) 12.5 MG tablet Take 12.5 mg by mouth every 12 (twelve) hours 0 Activecephalexin 500 mg oral capsule (1 source)Cephalosporin AntibacterialStart: 72-87-0417hvte 1 capsule by mouth every eight hoursCephalexin 500 MG 1 capsule Orally every 8 hrs for 7 days Feb, Activecholecalciferol 0.05 mg oral tablet (15 sources)Vitamin DStart: 01-05-2025 End: 90-26-7675rdlm 1 tablet by mouth once dailycholecalciferol (Vitamin D-3) 50 MCG (1999 [place]) tablet Indications: Vitamin D deficiency Take 1 tablet (50 mcg) by mouth Daily 30 tablet 2 01/05/2025 02/04/2025 ActiveContinuous Glucose Deportation Examiner (FreeStyle Anamaria 2 [place]) device (6 sources)Start: 03-24-2024 End: 18-12-4237Fleaofpvth Glucose Deportation Examiner (FreeStyle Anamaria 2 [place]) device Indications: Type 2 diabetes mellituswithout complication, without long-term current use of insulin (CMS/HCC) Inject 1 each under the skin continuously for 28 days 1 each 03/24/2024 04/21/2024 ActiveContinuous Glucose Deportation Examiner (FreeStyle Anamaria 3 [place]) device (20 sources)Start: 25-81-3330Mrorkglkle Glucose Deportation Examiner (FreeStyle Anamaria 3 [place]) device Indications: Type 2 diabetes mellituswithout complication, without long-term current use of insulin ([facility]) 1 each continuously 1 each 01/2025 ActiveStart: 10-39-8309Futsckgvcd Glucose Deportation Examiner (FreeStyle Anamaria 3 [place]) device Indications: Type 2 diabetes mellituswithout complication, without long-term current use of insulin 1 each continuously 1 each 10/31/2024 ActiveStart: 09-13-2024 End: 50-77-7948Whvmzembfu Glucose Deportation Examiner (FreeStyle Anamaria 3 [place]) device Indications: Type 2 diabetes mellituswithout complication, without long-term current use of insulin 1 each continuously 1 each 09/13/2024 10/31/2024 Discontinued (Reorder)Start: 81-12-8343Hqlykwzqnj Glucose Deportation Examiner (FreeStyle Anamaria 3 [place]) device Indications: Type 2 diabetes mellituswithout complication, without long-term current use of insulin (CMS/HCC) 1 each continuously 1 each09/13/2024 ActiveContinuous Glucose Sensor (FreeStyle Anamaria 3 Plus Sensor) misc (20 sources)Start: 64-02-3809Pghbdeqfmz Glucose Sensor (FreeStyle Anamaria 3 Plus Sensor) misc Indications: Type 2 diabetes mellitus without complication, without long-term current use of insulin ([facility]) 1 each continuously 2 each ActiveStart: 01-70-8359Mttpcvywni Glucose Sensor (FreeStyle Anamaria 3 Plus Sensor) misc Indications: Type 2 diabetes mellitus without complication, without long- term current use of insulin 1 each continuously 2 each 10/31/2024 Active Start: 09-13-2024 End: 34-27-3133Phxsyilwvn Glucose Sensor (FreeStyle Anamaria 3 Plus Sensor) [facility] Indications: Type 2 diabetes mellitus without complication, without long-term current use of insulin 1 each continuously 2 each 09/13/2024 10/31/2024 Discontinued (Reorder)Start: 06-37-2561Uazcduaqhe Glucose Sensor (FreeStyle Anamaria 3 Plus Sensor) [facility] Indications: Type 2 diabetes mellitus without complication, without long-term current use of insulin (CMS/[facility]) 1 each continuously 2 each 09/13/2024 Activedexamethasone 1 mg oral tablet (1 source)CorticosteroidStart: 88-35-9540fpbo 1 tablet by mouth once in the morningdexamethasone 1 mg oral tablet 1 mg = 1 tab(s), Oral, Once, Take at 11 pm. Must get cortisol blood level drawn the next morning at 8 am., # 1 tab(s), Refills(s) 0, Pharmacy: [id number], 168, cm, 03/08/25 10:47:00 EDT, Height/Length Dosing, 140.5, kg, 03/08/25 10:47:00 EDT, Weight Dosing Start Date: 03/08/25 Status: Ordered Quantity: 1.0 Unit: tab(s) Repeat number: 1 dicyclomine hydrochloride 20 mg oral tablet (1 source)AnticholinergicStart: 12-16-7512qjpb 1 tablet by mouth three times daily as neededdicyclomine 20 mg Tab TAKE 1 TABLET BY MOUTH THREE TIMES DAILY NEEDED Start Date: 03/08/25 Status: Ordered Repeat number: 10.5 ml dulaglutide 3 mg/ml auto-injector (3 sources)GLP-1 Receptor Agonistinject 1.5 mg by subcutaneous injection every weekTrulicity 1.5 MG/0.5ML solution pen-injector INJECT 1.5 mg SUBCUTANEOUSLY once a week 0 ActiveDULoxetine 60 mg delayed release oral capsule (20 sources)Serotonin and Norepinephrine Reuptake InhibitorStart: 12-14-2024 End: 79-37-0466cepd 1 capsule by mouth once daily in the morningDuloxetine 60 mg capsule,delayed release(DR/EC) Active 60 MG PO Every morning 90 May 31, 2025 8:35am Moderate episode of recurrent major depressive disorder Generalized anxiety disorder Majordepressive disorder, recurrent, moderate Generalized anxiety disorder Complies with drug therapyStart: 11-03-2023 End: 85-13-1120fpnj 1 capsule by mouth once dailyDuloxetine (Cymbalta) 30 mg capsule,delayed release(DR/EC) Discontinued 30 MG PO Daily April 17, 2024 11:00pm April 03, 2025 9:34amStart: 61-90-6166naab 1 capsule by mouth once dailyDULoxetine (Cymbalta) [address] capsule Indications: Other specified anxiety disorders TAKE 1 CAPSULE BY MOUTH DAILY 30 capsule 0 09/07/2023 ActiveStart: 32-03-9871emzt 1 capsule by mouth once dailyDULoxetine (Cymbalta) [address] capsule Indications: Other specified anxiety disorders TAKE 1 CAPSULE BY MOUTH DAILY 30 capsule 0 08/13/2023 Activeetodolac 300 mg oral capsule (20 sources)Nonsteroidal Anti-inflammatory DrugStart: 51-55-2896jgwp 1 capsule by mouth every eight hours as needed for painetodolac (Lodine) 300 MG capsule TAKE 1 CAPSULE BY MOUTH EVERY 8 HOURS NEEDED FOR PAIN 12/27/2024 Active furosemide 40 mg oral tablet (2 sources)Loop Diuretictake 1 tablet by mouth every twenty-four hoursFurosemide 40 MG 1 tablet Orally Once a day Activegabapentin 100 mg oral capsule (20 sources)Anti-epileptic AgentStart: 06-16-2024 End: 11-81-4432eyqq 1 capsule by mouth in the morninggabapentin (Neurontin) 100 MG capsule Indications: Type 2 diabetes mellitus with polyneuropathy (HCC) Take 1 capsule (100 mg) by mouth in the morning and 1 capsule (100 mg) before bedtime. 180 capsule 10/31/2024 ActivehydroCHLOROthiazide 25 mg / lisinopril 20 mg oral tablet (20 sources)Thiazide Diuretic, Angiotensin Converting Enzyme InhibitorStart: 02-01-2024 End: 08-88-5736vymj 1 tablet by mouth once daily in the morningLisinopril- Hydrochlorothiazide 20-25 mg tablet Active 1 TAB PO Every morning 90 0 May 31, 2025 8:35am Primary hypertension Essential (primary) hypertension Complies with drug therapytake 1 tablet by mouth in the morninglisinopril- hydroCHLOROthiazide 20-25 MG tablet Take 1 tablet by mouth in the morning. 0 Activelatanoprost 0.05 mg/ml ophthalmic solution (20 sources)Prostaglandin AnalogStart: 64-09-8128wngy 1 drop(s) into the eye(s) once daily in the morningLatanoprost 0.005 % drops Active 1 DROPS EYE-BOTH Every morning May 18, 2025 11:00pm Complieswith drug therapyStart: 03-08-2025 latanoprost Opth 0.005% Faye INSTILL 1 DROP to affected eye(s) ONCE DAILY AT BEDTIME Start Date: 03/08/25 Status: Ordered Repeat number: 1Start: 06-30-2024 take 1 drop(s) into the eye(s) at bedtimelatanoprost (Xalatan) 0.005 % ophthalmic solution Administer 1 drop into both eyes at bedtime 06/30/2024 Activelisinopril 10 mg oral tablet (2 sources)Angiotensin Converting Enzyme Inhibitortake 1 tablet by mouth every twenty-four hoursLisinopril 10 MG 1 tablet Orally Once a day ActivemetFORMIN hydrochloride 1000 mg oral tablet (20 sources)BiguanideStart: 16-25-8564njoz 2 tablets by mouth twice daily at mealtimeMetformin 1,000 mg tablet Active 1000 MG PO Twice daily with meals 180 0 May 31, 2025 12:00amType 2 diabetes mellitus, without long-term current use of insulin Type 2 diabetes mellitus withoutcomplications Complies with drug therapyStart: 04-18-2024 End: 15-86-8629ynzc 2 tablets by mouth twice dailyMetformin 500 mg tablet Discontinued 1000 MG PO Twice daily April 17, 2024 11:00pm May 31, 2025 8:36amStart: 48-84-4952yrhi 1 tablet by mouth twice dailyMetformin 500 mg tablet Active 500 MG PO Twice daily April 18, 2024 12:00am Complies with drug therapyStart: 02-01-2024 End: 32-31-0462sgbs 1 tablet by mouth in the morningmetFORMIN (Glucophage) 1000 MG tablet Indications: Type 2 diabetes mellitus without complications (HCC) Take 1 tablet (1,000 mg) by mouth in the morning and 1 tablet (1,000 mg) before bedtime. 180 tablet 1 01/31/2025 Activetake 1 tablet by mouth in the morning metFORMIN (Glucophage) 1000 MG tablet Take 1,000 mg by mouth in the morning and 1,000 mg before bedtime. 0 Activetake 1 tablet by mouth every twelve hours metFORMIN HCl 500 MG 1 tablet with meals Orally Twice a day Activemethocarbamol 750 mg oral tablet (20 sources)Muscle RelaxantStart: 54-44-3355ghlz 1 tablet by mouth every eight hoursmethocarbamol (Robaxin) 750 MG tablet Take 750 mg by mouth every 8 (eight) hours 12/27/2024 ActiveMultivitamin Adult - (2 sources)Multivitamin Adult - Orally UuwcetCyrshrnmykyo-Sdvxqfzb-Pniypu (Multivitamin 50 Plus) tablet (6 sources)Start: 26-41-8222Alizenaeablm-Minerals-Lutein (Multivitamin 50 Plus) tablet Active 1 TAB PO Every morning April 17, 2024 11:00pm Complies with drug therapyStart: 67-05-9760Eccne: 77-19-0712Wvpkgsejldej-Minerals-Lutein (Multivitamin 50 Plus) tablet Active 1 TAB PO Daily April 18, 2024 12:00am Complies with drug therapyStart: 52-66-5464Dlpso: 04-18-2024 Kfobljgrcgzx-Mjqvzijn-Yjivmn (Multivitamin 50 Plus) tablet Active 1 TAB PO Daily April 18, 2024 12:00amPARoxetine hydrochloride 20 mg oral tablet (20 sources)Serotonin Reuptake InhibitorStart: 06-16-2023 End: 00-10-8740mnlo 1 tablet by mouth in the morningPARoxetine (Paxil) 20 MG tablet Take 20 mg by mouth in the morning. 0 06/16/2023 Activepravastatin sodium 40 mg oral tablet (20 sources)HMG-CoA Reductase InhibitorStart: 02-01-2024 End: 15-85-8858lfmg 1 tablet by mouth once daily at bedtimePravastatin 40 mg tablet Active 40 MG PO Daily at bedtime 90 0 May 31, 2025 8:36am Mixed hyperlipidemia Mixed hyperlipidemia Complies with drug therapytake 1 tablet by mouth in the morningpravastatin (Pravachol) 40 MG tablet Take 40 mg by mouth in the morning. 0 ActiveSemaglutide (3 sources)Start: 07-44-1579Pmgalgqaeef (Ozempic) 1 mg/dose (4 mg/3 mL) pen injector Active 1 MG SUBCUT every week 9 2024 8:37am Type 2 diabetes mellitus, without long-term current use of insulin Type 2 diabetes mellitus without complications Complies with drug therapyStart: 05-19-2025 End: 20-75-2591gtipbe 1 mg by subcutaneous injection every weekSemaglutide (Ozempic) 1 mg/dose (4 mg/3 mL) pen injector Discontinued 1 MG SUBCUT every week May 18, 2025 11:00pm May 31, 2025 8:37amStart: 78-12-2894okrnyu 1 mg by subcutaneous injection every weeksemaglutide (Ozempic, 1 MG/DOSE,) 4 MG/3ML solution pen-injector (20 sources)Start: 38-27-3125vjcxur 1 mg by subcutaneous injection every week semaglutide (Ozempic, 1 MG/DOSE,) 4 MG/3ML solution pen-injector Indications: Type 2 diabetes mellitus without complication, without long-term current use of insulin (HCC) Inject 1 mg under the skin 1 (one) time per week 9 mL 1 01/31/2025 ActiveStart: 01-31-2025 End: 41-27-3646zxegkm 1 mg by subcutaneous injection every weeksemaglutide (Ozempic, 1 MG/DOSE,) 4 MG/3ML solution pen-injector Indications: Type 2 diabetes mellitus without complication, without long-term current use of insulin (HCC) Inject 1 mg under the skin 1 (one) time per week 9 mL 1 01/31/2025 04/25/2025 ActiveStart: 01-23-2025 End: 12-50-2152yhtnro 1 mg by subcutaneous injection every weeksemaglutide (Ozempic, 1 MG/DOSE,) 4 MG/3ML solution pen-injector Indications: Type 2 diabetes mellitus without complication, without long-term current use of insulin (HCC) Inject 1 mg under the skin 1 (one) time per week 9 mL 01/23/2025 01/31/2025 DiscontinuedStart: 01-23-2025 End: 34-71-8678jlyzwr 1 mg by subcutaneous injection every weeksemaglutide (Ozempic, 1 MG/DOSE,) 4 MG/3ML solution pen-injector Indications: Type 2 diabetes mellitus without complication, without long-term current use of insulin (HCC) Inject 1 mg under the skin 1 (one) time per week 9 mL 01/23/2025 04/23/2025 ActiveStart: 10-31-2024 End: 34-88-3218bijbel 1 mg by subcutaneous injection every weeksemaglutide (Ozempic, 1 MG/DOSE,) 4 MG/3ML solution pen-injector Indications: Type 2 diabetes mellitus without complication, without long-term current use of insulin (HCC) Inject 1 mg under the skin 1 (one) time per week 9 mL 10/31/2024 01/23/2025 Discontinued (Reorder)Start: 10-31-2024 End: 24-73-6767dogqkk 1 mg by subcutaneous injection every weeksemaglutide (Ozempic, 1 MG/DOSE,) 4 MG/3ML solution pen-injector Indications: Type 2 diabetes mellitus without complication, without long-term current use of insulin (HCC) Inject 1 mg under the skin 1 (one) time per week 9 mL 10/31/2024 01/29/2025 ActiveStart: 10-31-2024 End: 71-41-6858hemkxm 1 mg by subcutaneous injection every weeksemaglutide (Ozempic, 1 MG/DOSE,) 4 MG/3ML solution pen-injector Indications: Type 2 diabetes mellitus without complication, without long-term current use of insulin Inject 1 mg under the skin 1 (one) time per week 9 mL 10/31/2024 01/29/2025 ActiveStart: 08-01-2024 End: 46-72-6113ogtbta 1 mg by subcutaneous injection every weeksemaglutide (Ozempic, 1 MG/DOSE,) 4 MG/3ML solution pen-injector Indications: Type 2 diabetes mellitus without complication, without long-term current use of insulin Inject 1 mg under the skin 1 (one) time per week 9 mL 08/01/2024 10/31/2024 Discontinued (Reorder)Start: 08-01-2024 End: 66-71-7019qtlour 1 mg by subcutaneous injection every weeksemaglutide (Ozempic, 1 MG/DOSE,) 4 MG/3ML solution pen-injector Indications: Type 2 diabetes mellitus without complication, without long-term current use of insulin (CMS/HCC) Inject 1 mg under the skin 1 (one) time per week 9 mL 08/01/2024 10/30/2024 ActiveStart: 12-23-2023 End: 75-65-7958nnxwtf 1 mg by subcutaneous injection every weeksemaglutide (Ozempic, 1 MG/DOSE,) 4 MG/3ML solution pen-injector Indications: Type 2 diabetes mellitus without complication, without long-term current use of insulin (CMS/HCC) Inject 1 mg under the skin 1 (one) time per week 9 mL 12/23/2023 08/01/2024 Discontinued (Reorder)Start: 91-58-4456tqvtup 1 mg by subcutaneous injection every weeksemaglutide (Ozempic, 1 MG/DOSE,) 4 MG/3ML solution pen- injector Indications: Type 2 diabetes mellitus without complication, without long-term current use of insulin (CMS/HCC) Inject 1 mg under the skin 1 (one) time per week 9 mL 12/23/2023 ActivetraMADol hydrochloride 50 mg oral tablet (2 sources)Opioid Agonisttake 1 tablet by mouth every six hourstraMADol HCl 50 MG 1 tablet as needed Orally every 6 hrs ActivetraZODone hydrochloride 50 mg oral tablet (2 sources)Serotonin Reuptake Inhibitortake 1 tablet by mouth at bedtime traZODone HCl 50 MG 1 tablet at bedtime Orally Active Completed/Discontinued Medications MedicationDrug Class(es)DatesSig (Normalized)Sig (Original)amLODIPine 10 mg oral tablet (4 sources)Dihydropyridine Calcium Channel Joaquin End: 78-65-8022ratp 1 tablet by mouth in the morningamLODIPine (Norvasc) 10 MG tablet Take 10 mg by mouth in the morning. 0 08/27/2023 Discontinued (Therapy completed)24 hr buPROPion hydrochloride 150 mg extended release oral tablet (4 sources)Aminoketone End: 95-96-8598gxeb 1 tablet by mouth every twenty-four hours in the morning buPROPion XL (Wellbutrin XL) 150 MG 24 hr tablet Take 150 mg by mouth in the morning. 0 08/27/2023 Discontinued (Ineffective)take 1 tablet by mouth every twenty-four hoursbuPROPion HCl ER (XL) 150 MG 1 tablet in the morning Orally Once a day ActiveContinuous Blood Gluc Deportation Examiner (FreeStyle Anamaria 2 [place]) device (6 sources)Start: 06-15-2023 End: 84-19-6395Gccqbvgdko Blood Gluc Deportation Examiner (FreeStyle Anamaria 2 [place]) device USE DIRECTED to test BLOOD SUGAR 06/15/2023 03/24/2024 Discontinued (Reorder) Start: 96-60-1675Ytvtfqdrdo Blood Gluc Deportation Examiner (FreeStyle Anamaria 2 [place]) device USE DIRECTED to test BLOOD SUGAR 06/15/2023 ActiveStart: 06-15-2023 Continuous Blood Gluc Deportation Examiner (FreeStyle Anamaria 2 [place]) device USE DIRECTED to test BLOOD SUGAR 0 06/15/2023 ActiveContinuous Blood Gluc Sensor (FreeStyle Anamaria 2 Sensor) misc (6 sources)Start: 06-15-2023 End: 43-02-1624Fukrrikdyv Blood Gluc Sensor (FreeStyle Anamaria 2 Sensor) misc USE DIRECTED to test BLOOD SUGAR; change EVERY 14 days 06/15/2023 03/24/2024 Discontinued (Reorder)Start: 89-02-9646Fovxnwvfhk Blood Gluc Sensor (FreeStyle Anamaria 2 Sensor) misc USE DIRECTED to test BLOOD SUGAR; change EVERY 14 days 06/15/2023 ActiveStart: 71-73-2363Yysbqbwucw Blood Gluc Sensor (FreeStyle Anamaria 2 Sensor) misc USE DIRECTED to test BLOOD SUGAR; change EVERY 14 days 0 06/15/2023 ActiveContinuous Glucose Sensor (FreeStyle Anamaria 2 Sensor) misc (20 sources)Start: 03-25-2024 End: 71-50-9036Bvhehvlrkk Glucose Sensor (FreeStyle Anamaria 2 Sensor) misc Indications: Type 2 diabetes mellitus without complication, without long-term current use of insulin (CMS/[facility]) USE DIRECTED to test BLOOD SUGAR, change every 14 days 2 each 03/25/2024 09/13/2024 DiscontinuedStart: 03-25-2024 Continuous Glucose Sensor (FreeStyle Anamaria 2 Sensor) misc Indications: Type 2 diabetes mellitus without complication, without long-term current use of insulin (CMS/HCC) USE DIRECTED to test BLOOD SUGAR, change every 14 days 2 each 03/25/2024 ActiveStart: 03-24-2024 End: 63-83-9498Turlungudy Glucose Sensor (FreeStyle Anamaria 2 Sensor) [facility] Indications: Type 2 diabetes mellitus without complication, without long-term current use of insulin ([facility]) Inject 1 each under the skin continuously for 28 days 1 each 03/24/2024 03/25/2024 DiscontinuedStart: 03-24-2024 End: 21-76-7569Fbhuocawsk Glucose Sensor (FreeStyle [place]aria 2 Sensor) [facility] Indications: Type 2 diabetes mellitus without complication, without long-term current use of insulin ([facility]) Inject 1 each under the skin continuously for 28 days 1 each 03/24/2024 04/21/2024 ActiveFLUoxetine 20 mg oral capsule (2 sources)Serotonin Reuptake Inhibitortake 1 capsule by mouth every twenty-four hoursFLUoxetine HCl 20 MG 1 capsule in the morning Orally Once a day Not-Taking ketorolac tromethamine 5 mg/ml ophthalmic solution (3 sources)Nonsteroidal Anti-inflammatory Drug, Cyclooxygenase InhibitorStart: 01-04-2023 End: 97-47-1902purv 1 drop(s) into the eye(s) four times dailyketorolac (Acular) 0.5 % ophthalmic solution INSTILL 1 DROP into operative eye FOUR TIMES DAILY DIRECTED 0 01/04/2023 08/27/2023 Discontinued (Therapy completed)Start: 18-07-4091Kktizip per 15 mg 15 Jul, 2017 60 mgloratadine 10 mg oral tablet (20 sources)Start: 09-07-2023 End: 21-72-9996rltv 1 tablet by mouth once dailyloratadine (Claritin) 10 MG tablet Indications: H/O seasonal allergies Take 1 tablet (10 mg) by mouth Daily 90 tablet 10/31/2024 12/14/2024 Discontinued (Therapy completed)Start: 07-09-2023 End: 73-20-1883rxpv 1 capsule by mouth in the morningLoratadine 10 MG capsule Indications: Non-seasonal allergic rhinitis, unspecified trigger Take 10 mg by mouth in the morning. 30 capsule 1 07/09/2023 08/27/2023 Discontinued (Therapy completed)meloxicam 15 mg oral tablet (20 sources)Nonsteroidal Anti-inflammatory DrugStart: 06-15-2023 End: 96-47-3710wjkx 1 tablet by mouth once daily as needed for painmeloxicam (Mobic) 15 MG tablet Indications: Lumbar spondylosis Take 1 tablet (15 mg) by mouth Dailyas needed for moderate pain or mild pain 90 tablet 10/31/2024 12/14/2024 Discontinued (Therapy completed)naproxen 500 mg oral tablet (2 sources)Nonsteroidal Anti-inflammatory Drug End: 00-69-6905cvkxzkdi (Naprosyn) 500 MG tablet every 12 (twelve) hours 0 08/27/2023 Discontinued (Therapy completed) Problems Active Problems Problem ClassificationProblemDateDocumented DateEpisodic/ChronicAbdominal pain (18 sources)Generalized abdominal pain; Translations: [Generalized abdominal pain]Onset: 807489-82-5548RtvhpuxbJjgzabhi foot deformities (20 sources)Toe joint rigid; Translations: [Hallux rigidus, left foot]Onset: 161625-89-2623XduanthOckcwert foot deformities (4 sources)Toe joint rigid; Translations: [Hallux rigidus, right foot]04-14-2024 ChronicAllergic reactions (2 sources)H/O: non-drug allergy; Translations: [Allergy status to unspecified drugs, medicaments and biological substances status]20-91-6129KwxtwsnrHkrdilp disorders (4 sources)Anxiety disorder; Translations: [Other specified anxiety disorders] 50-00-0474MjcwiceHujshbcq of urinary tract (2 sources)Kidney stone; Translations: [Calculus of kidney]Onset: 03-08-2025 EpisodicDiabetes mellitus with complications (20 sources)Polyneuropathy due to type 2 diabetes mellitus; Translations: [Type 2 diabetes mellitus with diabetic polyneuropathy]Onset: 912163-73-5251 ChronicDiabetes mellitus without complication (20 sources)Type 2 diabetes mellitus without complications; Translations: [Type 2 diabetes mellitus without complication]Onset: 42-85-3991OmzsfxhZjipijaev of lipid metabolism (20 sources)Hyperlipidemia, unspecified; Translations: [Hyperlipidemia]Onset: 502375-47-2223AvijvrbQhgfinbjq hypertension (20 sources)Essential hypertension; Translations: [Essential (primary) hypertension]Onset: 882650-12-3486JilfoceWzzd disorders (20 sources)Moderate recurrent major depression; Translations: [Major depressive disorder, recurrent, moderate]86-98-9068YykjuzqFpukapwbhpf deficiencies (20 sources)Vitamin D deficiency; Translations: [Vitamin D deficiency, unspecified]Onset: 070698-39-6415SpiwrqjJizu wounds of extremities (1 source)Laceration without foreign body, left lower leg, initial encounter EpisodicOther diseases of veins and lymphatics (4 sources)Vascular insufficiency; Translations: [Venous insufficiency (chronic) (peripheral)]90-98-6124QdoshbtwIotse endocrine disorders (20 sources)Adrenal mass; 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, unspecified] Onset: 503197-80-7374GseljkwNaiez endocrine disorders (20 sources)Mass of left adrenal gland; Translations: [Other specified disorders of adrenal gland]Onset: 621162-83-6043YvshmutWjrxo endocrine disorders (1 source)Disorder of adrenal gland; 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, unspecified]Onset: 50-64-9593DqpbondGovua endocrine disorders (1 source)Disorder of adrenal gland, unspecified; 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, unspecified]Onset: 39-09-5251KanobgwSvhta gastrointestinal disorders (2 sources)Adrenal izht02-35-4041PoxavjcdRzdyi non-traumatic joint disorders (20 sources)Pain in right knee; Translations: [Pain in joint, lower leg]Onset: 937459-83-8203AdhcjitjMocbs non-traumatic joint disorders (20 sources)Hip pain; Translations: [Pain in right hip]Onset: 04-20-2019 84-22-5740HnnawlbmQijma nutritional; endocrine; and metabolic disorders (20 sources)Severe obesity; Translations: [Morbid (severe) obesity due to excess calories]Onset: 414603-63-4472YdnypgrNiyve nutritional; endocrine; and metabolic disorders (20 sources)Hypercalcemia; Translations: [Hypercalcemia]Onset: 12-28-2024 27-44-3202VpqduaeSmlmj nutritional; endocrine; and metabolic disorders (1 source)Obese class III; Translations: [Class 3 obesity]21-48-1893ImjmoacLunlh upper respiratory disease (20 sources)Allergic rhinitis; Translations: [Other allergic rhinitis]Onset: 432609-05-5052AlbxzukWvzokmau codes; unclassified (20 sources)Obstructive sleep apnea syndrome; Translations: [Obstructive sleep apnea (adult) (pediatric)]Onset: 526688-85-7072AtrowtbQmfoyroc codes; unclassified (20 sources)Bilateral lower limb edema; Translations: [Localized edema]Onset: 928832-06-4946BudncxfcOgvncbvsyvw; intervertebral disc disorders; other back problems (20 sources)Lumbar spondylosis; Translations: [Spondylosis without myelopathy or radiculopathy, lumbar region]Onset: 477301-75-4168GihockgWpyfgpn disorders (20 sources)Thyroid nodule; Translations: [Nontoxic single thyroid nodule]Onset: 678703-59-4461UqjchesPchntpw disorders (3 sources)Mass of thyroid gland; Translations: [Disorder of thyroid, unspecified]Onset: 808209-60-0015BpxjtnrxIxrtfurymoeo (1 source)E04.1 - Nontoxic single thyroid nodule Past or Other Problems Problem ClassificationProblemDateDocumented DateEpisodic/ChronicImmunizations and screening for infectious disease (1 source)Contact with and (suspected) exposure to other viral communicable diseasesOnset: 07-12-2021 Resolved: 06-88-8048QksftyrfSpfjdal and fatigue (1 source)Other fatigueOnset: 07-12-2021 Resolved: 42-98-4153CvrzbmisIhlo disorders (20 sources)Mood disordersOnset: 303228-72-6933Wrgguou (20 sources)Onychomycosis; Translations: [Tinea unguium]Onset: 04-27-2024 14-95-1192HewcfqleDqhyj connective tissue disease (2 sources)Pain of toes of bilateral feet; Translations: [Pain in right toe(s)] 77-32-3406TyklvzmtMlnie lower respiratory disease (20 sources)Dyspnea on exertion; Translations: [Other forms of dyspnea]Onset: 08-27-2023 Resolved: 099282-73-9169UsxhphaqScotu non-traumatic joint disorders (6 sources)Pain in right hip joint; Translations: [Pain in right hip]Onset: 102756-77-8183KzriliobRxgwp screening for suspected conditions (not mental disorders or infectious disease) (20 sources)Patient encounter status; Translations: [Encounter for screening for malignant neoplasm of prostate]Onset: 679524-90-5607AtjnzsxiRxvur upper respiratory infections (20 sources)Acute upper respiratory infection, unspecified; Translations: [Acute sinusitis]Onset: 07-12-2021 Resolved: 76-01-2433Tjuwdvam Results Test NameValueInterpretationReference RangeFacilityCapillary blood glucose measurement by glucometer (mass/volume)Ordered By: Juan Ayers on 06-02-2025 Glucose [Mass/Vol]201 mg/dLProMedica Toledo HospitalComment on above:Random Glucose Reference Range is dependent on time and content of last meal. Glucose of more than 200 mg/dL in a nonstressed, ambulatory subject supports the diagnosis of Diabetes Mellitus.Result Comment: Random Glucose Reference Range is dependent on time and content of last meal. Glucose of more than 200 mg/dL in a nonstressed, ambulatory subject supports the diagnosis of Diabetes Mellitus.Performed By: #### GLULS ####Point of Care testing,GLUCOSE POCT GLUCOMETERSon 40-22-0323XVMFKCR7Xjs8: Cleaned MeterNOMS HealthcareGlucose [Mass/Vol]201 mg/dLNOCT HealthcareComment on above:Random Glucose Reference Range is dependent on time and content of last meal. Glucose of more than 200 mg/dL in a nonstressed, ambulatory subject supports the diagnosis of Diabetes Mellitus. [facility] CenterZpkqnycshdLSTBONL3Grr2: Cleaned MeterNOMS HealthcareGlucose [Mass/Vol]156 mg/dLSALT LAKE BEHAVIORAL HEALTH [facility] HealthcareComment on above:Random Glucose Reference Range is dependent on time and content of last meal. Glucose of more than 200 mg/dL in a nonstressed, ambulatory subject supports the diagnosis of Diabetes Mellitus. [facility] CenterGlucose Poct Glucometerson 76-45-3021Jszzyea2Wkr8: Cleaned [facility] Physician GroupComment on above:Result Comment: PERFORMED BY: [facility] [address] [place] [address] PATHOLOGIST HAND [employer] SH[employer]ER ERIC ST M.D.Performed By: #### GLULS ####Point of Care testing,Commemt1 Glu2: Cleaned MeterNormGulf Coast Medical Center Physician GroupComment on above:Result Comment: PERFORMED BY: [facility] [address] [place] [address] PATHOLOGIST HAND PLUG SH[employer]ER [address] M.D.Performed By: #### GLULS ####Point of Care testing,Glucose [Mass/Vol]156 mg/dLBaptist Health Boca Raton Regional Hospital Physician GroupComment on above:Result Comment: Random Glucose Reference Range is dependent on time and content of last meal. Glucose of more than 200 mg/dL in a nonstressed, ambulatory subject supports the diagnosis of Diabetes Mellitus.Performed By: #### GLULS ####Point of Care testing,Oumar 06-02-2025 Specimen: [id number] Received: 06/02/25 Status: QUYNH Wood Num: [id number] Spec Type: Surgical Subm Dr: Juan Ayers DO Tissues: A Thyroid Biopsy (RIGHT SUBSTERNAL THYROID NOD) B THYROID - Lobe (RIGHT SUBSTERNAL THYROID LOB) Procedures: /12, Gross/Micro L5, Gross/Micro L4 Age/ Patient Sex Location Account Attending Physician Shannon Bolaños JR 69/M [place] [id number] Juan Ayers, SPEC NUM: [id number] RECD: 06/02/25 STATUS: QUYNH WOOD NUM: [id number] GAL: 06/02/[address] [facility] [address]: Juan Ayers DO ENTERED: 06/02/[address] [facility] [address]: MARISOL TYPE: Surgical DEPT: S ENTERED BY: [id number] RECV BY: [id number] ORDERED: HE/12, Gross/Micro L5, Gross/Micro L4 ORDERED: HE/12, Gross/Micro L5, Gross/Micro L4 Pathological Diagnosis A. Right thyroid nodule, excision: - Nodular hyperplasia with cystic changes. - Prior procedure site changes with extensive infarction and focal dystrophic calcification deposits. - No evidence of malignancy identified. B. Right thyroid and isthmus, right thyroidectomy: - Benign thyroid tissue with multinodular hyperplasia and cystic changes. - One parathyroid gland. - No evidence of malignancy identified. Clinical Information Right thyroid nodules. Gross Description Received in formalin labeled with the patient's date of , and Miky, right substernal thyroid nodule is a 5.3 grams, baum-vasquez, encapsulated ovoid rubbery nodule, 3 x 2.3 x 1.5 cm. The capsular surface is vasquez-pink, smooth and glistening with focal adhesions and a 0.5 cm in greatest dimension disruption. The capsular surface is inked black. Serial sections reveal a smooth lined cystic cavity, 2 cm in greatest dimension. The cyst wall ranges from 0.2 to 0.7 cm in thickness. The thickened cyst wall displays focal calcifications. The specimen is entirely submitted in A1?A6 (cassette A1?A2 and A5?A6 Specimen: [id number] Received: 06/02/25 Status: RACHELEder Isis Num: [id number] Spec Type: Surgical Subm Dr: Juan Ayers DO Tissues: A Thyroid Biopsy (RIGHT SUBSTERNAL THYROID NOD) B THYROID - Lobe (RIGHT SUBSTERNAL THYROID LOB) Procedures: , Gross/Micro L5, Gross/Micro L4 Patient: Shannon Bolaños JR [id number] (Continued) Specimen: [id number] Received: 06/02/25 (Continued) Gross Description (Continued) Signed (signature on file) Toney Edwards MD 06/05/25 1407 Specimen: [id number] Received: 06/02/25 Status: QUYNH Wood Num: [id number] Spec Type: Surgical Subm Dr: Juan Ayers DO Tissues: A Thyroid Biopsy (RIGHT SUBSTERNAL THYROID NOD) B THYROID - Lobe (RIGHT SUBSTERNAL THYROID LOB) Procedures: , Gross/Micro L5, Gross/Micro L4 Patient: Shannon Bolaños JR [id number] (Continued) Specimen: [id number] Received: 06/02/25 (Continued) Gross Description (Continued) decalcified in rapid Praful immuno). (6, ns, B12-3390 A) Part B is received in formalin labeled with the patient's date of , and Miky right substernal thyroid lobe and isthmus is an 11.8 grams, right thyroidectomy specimen with attached isthmus, 5.5 cm superior to inferior, 3.5 cm medial to lateral, and 2 cm anterior to posterior with 3 detached fragments of fibrofatty tissue, 0.8, 1 and 2.2 cm in greatest dimension. The medial aspect of the thyroid displays a rough and irregular area, 1.3 x 0.5 cm, consistent with fragmented isthmic margin. The remaining capsular surface is vasquez-pink, smooth and glistening with focal adhesions. The fragmented isthmic margin is inked orange with the remainder of the thyroid lobe inked black. Serial sections reveal 4 well-circumscribed, 0.2 to 0.3 cm in greatest dimension, vasquez-pink, gelatinous nodules and a disrupted, smooth lined internal cavity, 1.4 cm in greatest dimension. The nodules are situated at least 2 cm from the fragmented isthmic margin, and adjacent (less than 0.1 cm) from the anterior, as well as posterior surfaces. The remaining thyroid parenchyma is red-b (more content not included)...Normal [facility] Physician GroupNo Panel InformationOrdered By: Juan Ayers on 06-87-6748Lnfgwai Glucose CommentGlu2: cleaned [facility] ClinicBasic Metabolic Panelon 13-54-6210PGA/1.73 sq M.predicted MDRD (S/P/Bld) [Vol rate/Area]mL/min/{1.73_m2}NormalThe [facility] Physician GroupComment on above:Order Comment: Comment PSTPerformed By: #### [id number], BMP, T3T, TSH3, T4T, PTH #### [facility] [address] [place] [address] USABasophils [#/volume] in Blood by Automated countOrdered By: Juan Ayers on 30-96-2994Aksrmkizb (Bld) [#/Vol]0.1 10*3/uLNormal0.0-0.2 [facility] HospitalComment on above:Result Comment: PERFORMED BY: [facility] [address] [place] [address] PATHOLOGIST [employer] SH[employer]ER [address]IC ST M.D.Performed By: #### CBC ####[facility] [address] [place] [address] USABasophils/100 leukocytes in Blood by Automated countOrdered By: Juan Ayers on 25-22-0002Kdytfzqzq/100 WBC (Bld) 1.2 %Normal.[facility] HospitalComment on above:Performed By: #### CBC ####[facility] [address] [place] [address] [facility] CBC W Auto Differential panel (Bld)on 19-24-4683Iucxxdywf (Bld) [#/Vol]0.1 10*3/uL0.0 - 0.2 10*3/uLNOMS HealthcareBasophils/100 WBC Manual cnt (Syn fld)1.2 %.NOMS HealthcareEosinophils (Bld) [#/Vol]0.1 10*3/uL0.0 - 0.45 10*3/uLNOMS HealthcareEosinophils/100 WBC Manual cnt (Syn fld)1.4 %.[facility] Erythrocyte distribution width (RBC) [Ratio]14.6 %12.0 - 14.8 %[facility] Hematocrit (Bld) [Volume fraction]41.4 %38.8 - 50.0 %[facility] HealthcareHemoglobin (Bld) [Mass/Vol]14.6 g/dL13.0 - 17.0 g/dLSALT LAKE BE[facility]IORAL [facility] HealthcareLymphocytes (Bld) [#/Vol]1.8 10*3/uL1.00 - 4.8 10*3/uLNOMS HealthcareLymphocytes/100 WBC Manual cnt (Syn fld)23.0 %.[facility] HospitalH (RBC) [Entitic mass]29.7 pg27.5 - 35.2 pg [facility] HospitalHC (RBC) [Mass/Vol]35.4 g/dL32.5 - 35.6 g/dLMissouri Rehabilitation CenterMCV (RBC) [Entitic vol]84.0 fL83.5 - 101 fLNOMS HealthcareMonocytes (Bld) [#/Vol]0.5 10*3/uL0.0 - 0.8 10*3/uLNOMS HealthcareMonocytes+Macrophages/100 WBC Manual cnt (Syn fld)6.9 %.NOM HealthcareNeutrophils (Bld) [#/Vol]5.3 10*3/uL1.8 - 7.7 10*3/uLNOMS HealthcareNeutrophils/100 WBC Manual cnt (Syn fld)67.5 %.NOMS HealthcareNRBC0.1 /100{WBC}0 - 0.5 /100{WBC}NOMS HealthcarePlatelet mean volume (Bld) [Entitic vol]8.3 fL6.6 - 10.1 fLNOMS HealthcarePlatelets (Bld) [#/Vol]180 10*3/uL150 - 450 10*3/uLNOMS HealthcareRBC LM.HPF (Urine sed) [#/Area]4.93 10*6/uL3.90 - 5.60 10*6/uLNOMS HealthcareWBC (Bld) [#/Vol]7.8 10*3/uL4.1 - 10.5 10*3/uLNOMS HealthcareWBC LM.HPF (Urine sed) [#/Area]7.8 [CFU]/mL4.1 - 10.5 [CFU]/mLNOMS HealthcareNOMS HealthcareCalcium [Mass/volume] in Serum or Plasma Ordered By: Juan Ayers on 66-88-9866Vwfjnjf [Mass/Vol]9.9 mg/dLNormal 8.6-10.3FSt. Vincent HospitalComment on above:Order Comment: Comment PSTPerformed By: #### [id number], BMP, T3T, TSH3, T4T, PTH #### [facility] [address] [place] [id number] USACarbon dioxide, total [Moles/volume] in Serum or Plasma Ordered By: Juan Ayers on 62-85-2999DL9 [Moles/Vol]29.7 mmol/LNormal 21.0-31.0[facility] HospitalComment on above:Order Comment: Comment PSTPerformed By: #### [id number], BMP, T3T, TSH3, T4T, PTH #### [facility] [address] [place] [address] USAChloride [Moles/volume] in Serum or PlasmaOrdered By: Juan Ayers on 68-72-5439Lmrltpwj [Moles/Vol]101 mmol/JRqmglv65-553VouacavptBethesda North HospitalComment on above:Order Comment: Comment PSTPerformed By: #### [id number], BMP, T3T, TSH3, T4T, PTH #### [facility] [address] [place] [id number] USAComplete Blood Count Auto Diffon 57-96-7332Laba Corpuscular HGB Conc35.4 g/lRWhaizi30.5-35.6[facility] Physician GroupComment on above:Performed By: #### CBC ####[facility] [place] [address] USANRBC%0.1 /100{WBC}Normal0-0.5[facility] Physician GroupComment on above:Performed By: #### CBC ####[facility] [place] [address] USAWhite Blood Count7.8 [CFU]/mLNormal 4.1-10.5[facility] Physician GroupComment on above:Performed By: #### CBC ####[place] [address] [place] Creatinine [Mass/volume] in Serum or PlasmaOrdered By: Juan Ayers on 53-06-4417Zhtpovqpss [Mass/Vol]0.77 mg/dLNormal0.70-1.30[facility] HospitalComment on above:Order Comment: Comment PSTPerformed By: #### [id number], BMP, T3T, TSH3, T4T, PTH #### [place] [id number] USAECG 12 lead ECGon 85-26-0330SHS 12 lead ECGPREMIER HEALTH Main [address] [place] [address] Electrocardiograph Report Signed Patient: Shannon Bolaños JR MR#: [id number] : 1955 Acct:[id number] Age/Sex: 69 / M ADM Date: 05/19/25 Loc: PS Room: Type: [facility] Attending Dr: Juan Ayers DO Ordering Provider: Juan Ayers DO Date of Service: 05/19/25 ECG/ECG 12 lead ECG: pst Copies to: Test Reason : Blood Pressure : */* mmHG Vent. Rate : 88 BPM Atrial Rate : 88 BPM P-R Int : 174 ms QRS Dur : 106 ms QT Int : 342 ms P-R-T Axes : 43 21 34 degrees QTcB Int : 413 ms Normal sinus rhythm Normal ECG No previous ECGs available Confirmed by DOMINIQUE WYNNE [facility], JENNIE ([id number]) on 05/20/2025 11:29:48 AM Referred By: Electronically Signed By: JENNIE FOX MD [facility] Transcribed By: MUS Signed By Jennie Fox MD, [facility] 05/20/[address] [place] [address] Physician GroupEosinophils [#/volume] in Blood by Automated countOrdered By: Juan Ayers on 20-54-7998Qmfusvfrhqz (Bld) [#/Vol]0.1 10*3/uLNormal0.0-0.45[facility] HospitalComment on above:Performed By: #### CBC ####[place] [address] USAEosinophils/100 leukocytes in Blood by Automated countOrdered By: Juan Ayers on 27-19-0646Dmluezbpvlh/100 WBC (Bld)1.4 % Normal.[facility] HospitalComment on above:Performed By: #### CBC ####[address] Erythrocyte distribution width [Ratio] by Automated countOrdered By: Juan Ayers on 88-55-6157Apezpnxctkv distribution width (RBC) [Ratio]14.6 %Normal 12.0-14.8[facility] HospitalComment on above:Performed By: #### CBC ####[address] Erythrocytes [#/volume] in Blood by Automated countOrdered By: Juan Ayers on 35-96-0741EKG (Bld) [#/Vol]4.93 10*6/uLNormal3.90-5.60[facility] HospitalComment on above:Performed By: #### CBC ####[facility] [address] [place] [address] USAGlomerular filtration rate [Volume Rate/Area] in Serum, Plasma or Blood by CreatinineOrdered By: Juan Ayers on 43-52-6176Rxwcuybnlq filtration rate [Volume Rate/Area] in Serum, Plasma or Blood by Creatinine> 60.0 mL/MinBethesda North Hospital Glucose [Mass/volume] in Serum or PlasmaOrdered By: Juna Ayers on 31-96-4281Cngolsp [Mass/Vol]120 mg/cOGkcp63-934SrmiieytmBethesda North Hospital Comment on above:ADA recommended reference rangeRandom Glucose Reference Range is dependent on time and content of last meal. Glucose of more than 200 mg/dL in a nonstressed, ambulatory subject supports the diagnosisof Diabetes Mellitus. Order Comment: Comment PSTResult Comment: Random Glucose Reference Range is dependent on time and content of last meal. Glucose of more than 200 mg/dL in a nonstressed, ambulatory subject supports the diagnosis of Diabetes Mellitus. ADA recommended reference rangePerformed By: #### [id number], BMP, T3T, TSH3, T4T, PTH #### [facility] [address] [place] [address] USAHematocrit [Volume Fraction] of Blood by Automated count Ordered By: Juan Ayers on 39-91-2691Ytmdsgdedk (Bld) [Volume fraction]41.4 %Gdccwt21.8-50.0[facility] HospitalComment on above:Performed By: #### CBC ####[facility] [place] [id number] USAHemoglobin [Mass/volume] in BloodOrdered By: Juan Ayers on 05-19-2025 Hemoglobin (Bld) [Mass/Vol]14.6 g/dRCetiue96.0-17.0[facility] HospitalComment on above:Performed By: #### CBC ####[facility] [place] [address] USALeukocytes [#/volume] corrected for nucleated erythrocytes in Blood by Automated counOrdered By: Juan Ayers on 50-22-2721RAM corrected for nucl RBC Auto (Bld) [#/Vol]7.8 10*3/uL4.1-10.5 [facility] HospitalLeukocytes [#/volume] in Blood by Automated countOrdered By: Juan Ayers on 90-30-1124WES (Bld) [#/Vol]7.8 10*3/uLNormal 4.1-10.5FSt. Vincent HospitalComment on above:Performed By: #### CBC ####[address] [address] Lymphocytes [#/volume] in Blood by Automated countOrdered By: Juan Ayers on 77-36-7006Eublnjmnuku (Bld) [#/Vol]1.8 10*3/uLNormal1.00-4.8[facility] HospitalComment on above:Performed By: #### CBC ####[place] [address] USALymphocytes/100 leukocytes in Blood by Automated countOrdered By: Juan Ayers on 09-16-1761Bgvouotexqr/100 WBC (Bld)23.0 %Normal.[facility] HospitalComment on above: Performed By: #### CBC ####[place] [address] [facility] [Entitic mass] by Automated countOrdered By: Juan Ayers on 01-89-8643YKU (RBC) [Entitic mass]29.7 wjLshnck69.5-35.2 [facility] HospitalComment on above:Performed By: #### CBC ####[place] [address] [facility] Auto (RBC) [Mass/Vol]Ordered By: Juan Ayers on 61-78-2669FLKV (RBC) [Mass/Vol]35.4 g/dL32.5-35.6FSt. Vincent HospitalMCV [Entitic volume] by Automated countOrdered By: Juan Ayers on 41-85-9760RJH (RBC) [Entitic vol]84.0 xEJjdhlu32.5-101Bet[facility] North HospitalComment on above:Performed By: #### CBC ####[address] [address] USAMonocytes [#/volume] in Blood by Automated count Ordered By: Juan Ayers on 07-85-4403Quoaidjlg (Bld) [#/Vol]0.5 10*3/uL Normal0.0-0.8[facility] North HospitalComment on above:Performed By: #### CBC ####[address] [address] USAMonocytes/100 leukocytes in Blood by Automated countOrdered By: Juan Ayers on 57-62-5210Vshntlncz/100 WBC (Bld)6.9 %Normal.[facility] HospitalComment on above:Performed By: #### CBC ####[place] [address] USANeutrophils [#/volume] in Blood by Automated countOrdered By: Juan Ayers on 88-66-9979Excqyevsuml (Bld) [#/Vol]5.3 10*3/uLNormal1.8-7.7FSt. Vincent HospitalComment on above:Performed By: #### CBC ####[address] [address] USANeutrophils/100 leukocytes in Blood by Automated countOrdered By: Juan Ayers on 33-31-0943Zebwqpiiuia/100 WBC (Bld)67.5 % Normal.[facility] North HospitalComment on above:Performed By: #### CBC ####[address] [address] USANo Panel InformationOrdered By: Juan Ayers on 73-18-6071Pxkbpctz Creatinine Clearance (ChemN/AFSt. Vincent HospitalNucleated erythrocytes [Presence] in Blood by Automated countOrdered By: Juan Ayers on 05-19-2025 Nucleated RBC Auto Ql (Bld)0.1 /100{WBC}0-0.5FSt. Vincent Hospital Parathyrin.intact [Mass/Vol]on 74-94-8490FHTORBTZUYR HORMONE VRFQVH26.3 pg/mL12 - 88 pg/mLNOMS HealthcareComment PSTFIRELANDSNOMS HealthcareParathyrin.intact [Mass/volume] in Serum or PlasmaOrdered By: Juan Ayers on 05-19-2025 Parathyrin.intact [Mass/Vol]70.3 pg/aW08-10QdvvrzumdBethesda North Hospital Parathyroid Hormone Intacton 07-25-2264Idcgitogvxz Hormone Jlycfb64.3 pg/mL Gvbeec73-64Mtv [facility] Physician GroupComment on above:Order Comment: Comment PSTResult Comment: PERFORMED BY: [facility] [address] [id number] PATHOLOGIST HAND PLUG SHAPER ERIC ST M.D.Performed By: #### [id number], BMP, T3T, TSH3, T4T, PTH #### [facility] [address] [place], [place] [address] USAPlatelet mean volume [Entitic volume] in Blood by Automated countOrdered By: Juan Ayers on 40-68-2672Sjsnfcmk mean volume (Bld) [Entitic vol]8.3 fLNormal6.6-10.1FSt. Vincent HospitalComment on above:Performed By: #### CBC ####[address] [place] [address] USAPlatelets [#/volume] in Blood by Automated count Ordered By: Juan Ayers on 96-36-1870Erposswny (Bld) [#/Vol]180 10*3/uL Vnxolc664-340ZsonvopuoBethesda North HospitalComment on above:Performed By: #### CBC ####[place] [id number] USAPotassium [Moles/volume] in Serum or PlasmaOrdered By: Juan Ayers on 04-37-0169Cinitrgte [Moles/Vol]4.0 mmol/LNormal3.5-5.1FSt. Vincent HospitalComment on above:Order Comment: Comment PSTPerformed By: #### [id number], BMP, T3T, TSH3, T4T, PTH #### [facility] [address] [place], [place] [address] USASerum or plasma anion gap determinationOrdered By: Juan Ayers on 66-00-1372Qdqor gap [Moles/Vol]11.3 mmol/LNormal6.0-15.0 [facility] North HospitalComment on above:Order Comment: Comment PST Performed By: #### [id number], BMP, T3T, TSH3, T4T, PTH #### [facility] [address] [place] [address] USASodium [Moles/volume] in Serum or PlasmaOrdered By: Juan Ayers on 80-60-6749Nasubj [Moles/Vol]138 mmol/EAkzlrs893-305KqditmoaeBethesda North HospitalComment on above:Order Comment: Comment PSTPerformed By: #### [id number], BMP, T3T, TSH3, T4T, PTH #### [facility] [address] [place] [address] USAThyrotropin [Units/volume] in Serum or PlasmaOrdered By: Juan Ayers on 02-98-9164KHK Qn0.83 m[IU]/LNormal0.45-5.33[facility] North HospitalComment on above:Order Comment: Comment PSTPerformed By: #### [id number], BMP, T3T, TSH3, T4T, PTH ####[facility] [address] [place] [address] USAThyroxine (T4) [Mass/volume] in Serum or Plasma Ordered By: Juan Ayers on 25-77-8456Z1 [Mass/Vol]9.35 ug/dLNormal5.39-11.82 [facility] HospitalComment on above:Order Comment: Comment PST Performed By: #### [id number], BMP, T3T, TSH3, T4T, PTH #### [facility] [address] [place] [address] USATriiodothyronine (T3) Totalon 29-07-5061Ymxqrpkoddhqicxq (T3) Total1.18 ng/mLNormal0.87-1.78The [facility] Physician GroupComment on above:Order Comment: Comment PSTPerformed By: #### [id number], BMP, T3T, TSH3, T4T, PTH ####[facility] [address] [place] [address] USATriiodothyronine (T3) [Mass/volume] in Serum or PlasmaOrdered By: Juan Ayers on 44-80-1146S4 [Mass/Vol]1.18 ng/mL0.87-1.78[facility] North HospitalUrea nitrogen [Mass/volume] in Serum or PlasmaOrdered By: Juan Ayers on 57-72-0949Xits nitrogen [Mass/Vol]16 mg/dLNormal7-25[facility] North HospitalComment on above:Order Comment: Comment PSTPerformed By: #### [id number], BMP, T3T, TSH3, T4T, PTH #### [facility] [address] [place] [address] USAVitamin D 25 Hydroxy Totalon 20-24-8151Jnhknwg D 25 Hydroxy Total31.2 ng/gNXeeanj61-060Pll [facility] Physician GroupComment on above:Order Comment: Comment PSTResult Comment: VITAMIN D STATUS 25(OH)VITAMIN D RANGE (ng/mL) Deficient <20 Insufficient 20 to <30 Sufficient 30 to 100 Reference: Eduardo Portillo, Jayden GONZALES, et al. Evaluation,treatment, and prevention of vitamin D deficiency; an Endocrine Society clinical practice guideline. JCEM. 2010; 96(7):1911-30. PERFORMED BY: [facility] [address] [place] [address] PATHOLOGIST HAND PLUG SHAPER ERIC ST M.D.Performed By: #### [id number], BMP, T3T, TSH3, T4T, PTH ####[facility] [address] [place] [address] USAVitamin D+Metabolites [Mass/volume] in Serum or PlasmaOrdered By: Juan Ayers on 51-48-9941Nnynvlk D+Metabolites [Mass/Vol]31.2 ng/pY73-666HgsbonwpeBethesda North HospitalComment on above:VITAMIN D STATUS 25(OH)VITAMIN D RANGE (ng/mL) Deficient <20 Insufficient 20 to <76Rhxovpcbvx02 to 100Reference: Eduardo Portillo, Jayden GONZALES, et al. Evaluation,treatment, and prevention of vitamin D deficiency; an Endocrine Society clinical practice guideline. JCEM. 2010; 96(7):1911-30.CT SOFT TISSUE NECK W IV CONTRASTon 77-82-1708VY SOFT TISSUE NECK W IV CONTRASTCT SOFT TISSUE NECK WITH INTRAVENOUS CONTRAST MEDIUM. HISTORY: THYROID NODULES. TECHNICAL FACTORS: CT soft tissue neck obtained and formatted as 2.5 mm contiguous axial images. Sagittal and coronal reconstruction obtained during postprocessing. COMPARISON: None FINDINGS: Skull base:Normal Orbits: . Without anomaly. Facial sinuses: Well pneumatized Nasopharynx: Normal Mastoids: Air cells well aerated. Oral cavity: Without anomaly. Oropharynx: Without anomaly. Bilateral parapharyngeal spaces and retropharyngeal spaces: Preserved. Salivary glands: Normal Hypopharynx, larynx, supraglottis, infra-glottis: : Without anomaly. Lymph nodes: No lymph node enlargement. Vascular: Vascular structures enhance uniformly. Thyroid: 2 x 1.8 cm low-attenuation nodule right lobe with punctate calcification within it. Otherwise, no cystic and no solid lesions are found either within the retrosternal or peristernal region. Lung apices: Without anomaly. IMPRESSION: 2.0 x 1.8 cm low-attenuation nodule right lobe thyroid containing punctate calcification. If clinical concern warrants, thyroid sonography may be available for further evaluation to rule out malignancy. All CT scans at this facility use dose modulation, iterative reconstruction, and/or weight based dosing when appropriate to reduce radiation dose to as low as reasonably achievable. ELECTRONICALLY SIGNED BY: Juan Leon MDInvalid Interpretation CodeNot AvailableCortisolon 93-55-2528Shlgkkyg8.4 ug/dLNoNovant Health Physician GroupComment on above:Result Comment: Reference range: AM 6 - 24 ug/dl PM <10 ug/dl [facility] loan operations manager and method: HUONG UNICEL DXI, POLYCLONAL ANTIBODY CORTISOL ASSAY. PERFORMED BY: [address] [place] [address] PATHOLOGIST HAND PLUG SHAPER ERIC ST M.D.Performed By: #### MET FRAC P #### [facility] , #### MISC2 LAB, PREETI #### [address] [place] [address] USACortisol [Mass/volume] in Serum or PlasmaOrdered By: Tiff Boo on 59-46-3065Plrvywaa [Mass/Vol]1.4 ug/dLBethesda North Hospital Comment on above:[facility] loan operations manager and method:HUONG UNICEL DXI, POLYCLONAL ANTIBODY CORTISOL ASSAY.Reference range: AM 6 - 24 ug/dl PM <10 ug/dlINR in Platelet poor plasma by Coagulation assayOrdered By: Onelia Simon on 13-44-4399TPJ Coag (PPP) [Relative time]0.9 {INR}NormalBethesda North HospitalComment on above:INR Therapeutic Range A) Pre- and Peroperative OAT started two weeks before surgery. NOT HIP SURGERY: 1.5 - 2.5 HIP SURGERY: 2 - 3B) Primary and secondary prevention of venous THROMBOSIS: 2 - 3C) Active venous thrombosis, pulmonary embolismand prevention of recurrent venous thrombosis: 2 - 3D) Prevention of arterial thromboembolismincluding patients with mechanical heart valves: 3 - 4.5Result Comment: INR Therapeutic Range A) Pre- and Peroperative OAT started two weeks before surgery. NOT HIP SURGERY: 1.5 - 2.5 HIP SURGERY: 2 - 3 B) Primary and secondary prevention of venous THROMBOSIS: 2 - 3 C) Active venous thrombosis, pulmonary embolism and prevention of recurrent venous thrombosis: 2 - 3 D) Prevention of arterial thromboembolism including patients with mechanical heart valves: 3 - 4.5 PERFORMED BY: [place] [id number] PATHOLOGIST HAND PLUG SHAPER ERIC ST M.D.Performed By: #### PT, PLT ####[facility] [address] [place] [address] USALon 03-28-2025L Specimen: [id number] Received: 03/29/25 Status: QUYNH Wood Num: [id number] Spec Type: Cytology Subm Dr: Moe Carter II, MD Tissues: A FNA SLIDES PATH (RIGHT MID THYROID LOBE) Procedures: -, DIFF QWIK/6, PAPSTN/7 Age/ Patient Sex Location Account Attending Physician Shannon Bolaños JR 69/M [id number] LEO Peterson SPEC NUM: [id number] RECD: 03/29/25 STATUS: QUYNH WOOD NUM: [id number] GAL: 03/28/25- SUBM DR: Moe Carter II, MD ENTERED: 03/29/[address] [facility] [address]: LEO Peterson SPEC TYPE: Cytology DEPT: [facility] ENTERED BY: [id number] RECV BY: [id number] ORDERED: -, DIFF QWIK/6, PAPSTN/7 ORDERED: -, DIFF QWIK/6, PAPSTN/7 Pathological Diagnosis Right middle thyroid nodule, fine needle aspiration (ThinPrep and Smear Slides): - Inadequate for evaluation due to scant cellularity. - Rare follicular cells and blood, nondiagnostic (Seth Category I). Comment: Recommend clinical and radiologic correlation and repeat right middle thyroid nodule FNA as clinically indicated. Clinical Information Right Thyroid Nodules Gross Description Received is 30 ml red,cloudy fixed fluid for cytology said to have been obtained as Right Middle Thyroid Nodule. ThinPrep preparations are prepared for microscopic examination. Also received are 12 total smeared slides and a Veracyte vial stored at -20 for microscopic examination. (/nh) Specimen: [id number] Received: 03/29/25 Status: QUYNH Barriosshiv Num: [id number] Spec Type: Cytology Subm Dr: Moe Carter II, MD Tissues: A FNA SLIDES PATH (RIGHT MID THYROID LOBE) Procedures: -, DIFF QWIK/6, PAPSTN/7 Patient: Shannon Bolaños JR [id number] (Continued) Specimen: [id number] Received: 03/29/25 (Continued) Signed (signature on file) Toney Edwards MD 03/29/25 0856 Specimen: [id number] Received: 03/29/25 Status: QUYNH Wood Num: [id number] Spec Type: Cytology Subm Dr: Moe Carter II, MD Tissues: A FNA SLIDES PATH (RIGHT MID THYROID LOBE) Procedures: -, DIFF QWIK/6, PAPSTN/7 Patient: Shannon Bolaños JR [id number] (Continued) Specimen: [id number] Received: 03/29/25 (Continued) Immediate Evaluation On site adequate evaluation: Right Middle Thyroid Nodule, Ultrasound-Guided FNA: -Pass #1 to #3: Blood only (Inadequate). -Pass #4 to #6: Blood only (Inadequate). Toney Edwards MD 04/20/25 11:30 A.M. Microscopic Description Microscopic examination is performed. CPT Codes 12245, 43643, 83936 Specimen: [id number] Received: 03/29/25 Status: QUYNH Wood Num: [id number] Spec Type: Cytology Subm Dr: Moe Carter II, MD Tissues: A FNA SLIDES PATH (RIGHT MID THYROID LOBE) Procedures: -, DIFF QWIK/6, PAPSTN/7 Patient: Shannon Bolaños JR [id number] (Continued) Signed (signature on file) Toney Edwards MD 03/29/25 0856Normal [facility] Physician GroupMISC2 LABon 74-59-2777YTOE8 LABNormGulf Coast Medical Center Physician GroupComment on above:Order Comment: Misc 2 Test Name: 1 GOLD AND 1 LAV ALDOSTERONE RENIN RATIO TEST [id number] Comment: See report. Scanned copy available in EMR. PERFORMED BY: [place] [address] PATHOLOGIST HAND PLUG SHAPER ERIC ST M.D.Performed By: #### MET FRAC P #### [facility] , #### MISC2 LAB, PREETI #### [facility] [address] [place], [place] [address] USAMetanephrines, Frac, Pl, Freeon 78-21-1477Otjjkwbslqpcd, P 26.0 pg/mLNormal0.0-88.0The [facility] Physician GroupComment on above:Order Comment: Fasting? (See Test/Proc Notes): YResult Comment: This test was developed and its performance characteristics determined by [facility]. It has not been cleared or approved by the Food and Drug Administration. Performed at: [address] [id number] Health Consultant: Brown Steele MD, Phone: [phone] PERFORMED BY: [address] [address] PATHOLOGIST HAND PLUG SHAPER ERIC ST M.D.Performed By: #### MET FRAC P #### [facility] , #### MISC2 LAB, PREETI #### [facility] [address] [place] [address] USANormetanephrine, P95.8 pg/mLNormal0.0-285.2The [facility] Physician GroupComment on above:Order Comment: Fasting? (See Test/Proc Notes): Y Result Comment: This test was developed and its performance characteristics determined by [facility]. It has not been cleared or approved by the Food and Drug Administration.Performed By: #### MET FRAC P #### [facility] , #### MISC2 LAB, PREETI #### [facility] [address] [place] [address] USANo Panel InformationOrdered By: Tiff Boo on 03-28-2025 Miscellaneous Test 2See commentBethesda North HospitalComment on above:See report. Scanned copy available in EMR.Platelets [#/volume] in Blood by Automated countOrdered By: Onelia Simon on 02-56-8682Uomeckfwk (Bld) [#/Vol] 191 10*3/vAEuuzwy922-984DqnemoyutBethesda North HospitalComment on above:Result Comment: PERFORMED BY: [facility] [address] [place] [address] PATHOLOGIST HAND PLUG SHAPER ERIC ST M.D.Performed By: #### PT, PLT ####[facility] [address] [place] [address] USAProthrombin time (PT)Ordered By: Onelia Simon on 95-88-4415BX Coag (PPP) [Time]10.1 sNormal9.0-12.9Bet[facility] North HospitalComment on above:A hematocrit value greater than 55% may lead to inaccurate results in coagulation testing. Patientshaving hematocrit values >55% require a special collection tube for coagulation studies. Please contact the laboratory at [phone] for redraw instructions.Result Comment: A hematocrit value greater than 55% may lead to inaccurate results in coagulation testing. Patients having hematocrit values >55% require a special collection tube for coagulation studies. Please contact the laboratory at [phone] for redraw instructions.Performed By: #### PT, PLT ####[facility] [address] [place] [address] USASerum or plasma free metanephrine measurement (mass/volume)Ordered By: Tiff Boo on 26-32-6330Gpigypfyfbrg Free [Mass/Vol]26.0 pg/mL0.0-88.0Bet[facility] North HospitalComment on above:This test was developed and its performance characteristicsdetermined by [facility]. It has not been cleared orapproved by the Food and Drug Administration.Performed at: [facility] - [facility] [address] [place], [place] [id number] Director: Brown Steele MD, Phone: [phone] needle aspirationon 10-33-1682FW needle aspirationPREMIER HEALTH [address] [place], [place] [address] Ultrasound Report Signed Patient: Shannon Bolaños JR MR#: [id number] : 1955 Acct:[id number] Age/Sex: 69 / M ADM Date: 03/28/25 Loc: Room: Type: [facility] Attending Dr: Onelia Simon Ordering Provider: LEO Peterson Date of Service: 03/28/25 US/US needle aspiration: E04.1 Copies to: LEO Peterson US needle aspiration 03/28/2025 11:46 AM SIGNS AND SYMPTOMS: Thyroid nodule no acute INFORMED CONSENT: Reason for procedure was discussed with the patient. The procedure expectations risks benefits options and alternatives were discussed. All the questions were answered. The patient understood the results cannot be guaranteed. The procedure is indicated and risks were acceptable. Consent was obtained. PROCEDURE: The hypoechoic nodule in the right thyroid lobe was visualized using grayscale sonographic imaging. The skin was marked over this location. The skin was prepped and draped in a sterile manner. 5 mL of lidocaine 2% without epinephrine were used for local anesthesia. A total of 7 fine-needle aspirates were obtained using 25-gauge needle under ultrasound visualization. This was removed. Hemostasis was gained using manual pressure. The patient tolerated the procedure well. No immediate complications were detected. US/US needle aspiration IMPRESSION: Successful ultrasound-guided fine-needle aspiration of a hypoechoic nodule in the right thyroid lobe. Impression dictated by: Moe Carter M.D. 03/28/2025 1:37 PM Dictation Location: [place] [address] Tech: Alice Gonzalez Transcribed By: ALISSA 03/28/25 1337 Dictated By: Moe Carter II, MD 03/28/25 1324 Signed By: 03/28/25 1337[facility] Physician GroupCT abdomen wo/w conon 03-23-2025 CT abdomen wo/w [facility] [address] [place] [address] CT Scan Report Signed Patient: Shannon Bolaños JR MR#: [id number] [id number] : 1955 Acct:[id number] Age/Sex: 69 / M ADM Date: 03/23/25 Loc: CT Room: Type: [facility] Attending Dr: Tiff Boo MD Copies to: Tiff Boo MD Ordering Provider: Tiff Boo MD Date of Service: 03/23/25 CT/CT abdomen wo/w con: E27.9 CT ABDOMEN WITH AND WITHOUT INTRAVENOUS CONTRAST: CLINICAL HISTORY: Adrenal mass. COMPARISON: None TECHNIQUE: Spiral images were obtained through the abdomen and pelvis before and after the administration of intravenous contrast. This CT exam was performed using one or more following dose reduction techniques: Automated exposure control, adjustment of the mA and/or kV according to patient size, or use of iterative reconstruction technique. FINDINGS: Lung Bases: [Bibasilar atelectasis.] Organs:3.7 cm left adrenal nodule with Hounsfield units suggestive of an adrenal adenoma. Hepatic steatosis. Gallbladder pancreas spleen and right adrenal gland appear unremarkable. 7 mm stone right kidney. Left kidney appears unremarkable. Abdominal aorta appears normal in caliber. GI: Stomach is grossly unremarkable. Visualized small bowel and colon demonstrates no acute process.[ Peritoneum/Retroperitoneum:No free air or free fluid or lymphadenopathy.[ Abd wall/Bones:Abdominal wall demonstrates no acute findings. Osseous structures demonstrate degenerative change.[ CT/CT abdomen wo/w con IMPRESSION: 3.7 cm left adrenal adenoma. No acute process is seen. Right nephrolithiasis. Impression dictated by: Bennie Coffman Jr., D.O. 03/23/2025 1:47 PM Dictation Location: [facility] Transcribed By: [facility] 03/23/25 1347 Dictated By: Bennie Coffman Jr, DO 03/23/25 1344 Signed By: 03/23/25 1347NoNovant Health Physician GroupISTAT XRay CREon 32-94-8348HVUUL GFR>60.0NormalThe Firelands Physician GroupComment on above:Result Comment: PERFORMED BY: [facility] [address] [place] [address] PATHOLOGIST HAND PLUG SHAPER ERIC ST M.D.Performed By: #### ISCRE #### [facility] [address] [place] [address] USANo Panel InformationOrdered By: Tiff Boo on 03-23-2025 Bedside Estimated GFR (eGFR)> 60.0Bet[facility] North HospitalWhole blood creatinine measurementOrdered By: Tiff Boo on 61-66-5607Tomjnbiliv [Mass/Vol] 0.8 mg/dLNormal0.6-1.3FSt. Vincent HospitalComment on above:ER/ESD physician is notified/shown all ISTAT results.Critical values may be confirmed by laboratorytesting ifdeemed necessary by ER attending doctor.Result Comment: ER/ESD physician is notified/shown all ISTAT results. 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 Denies any flank or abdomen pain. no symptoms History of Present Illness Tests reviewed: UA, external referral records: labs, notes, CT I have reviewed the previous health record information and history for this patient from external provider. I have reviewed and verified the staff HPI to be accurate for this encounter. Review of Systems PHQ Score Initial Depression Screen Score: 0 SCORE ROS - Provider Constitutional: denies weight loss, denies hot flashes. Eyes: denies eye problems. Gastrointestinal: denies nausea, denies vomiting. Cardiovascular: denies chest pain or angina. Integumentary: no dryness Musculoskeletal: denies musculoskeletal symptoms. ENMT: denies otolaryngeal symptoms. Respiratory: no shortness of breath. Heme/Lymph: denies easy bleeding tendency, denies easy bruising tendency. Psychiatric: no confusion, no anxiety. Genitourinary: See HPI. Physical Exam Vitals & Measurements HR: 88(Peripheral) BP: 127/73 HT: 168 cm HT: 66 in WT: 140.5 kg WT: 309.749 lb BMI: 49.78 General Appearance: alert, no distress, well nourished, well developed adult. 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 No personal hx of cancer. Fam hx of colon cancer. A1c - 7 (11/2024) 1. Adrenal nodule (E27.9: Disorder of adrenal gland, unspecified) CT Ab w/wo con 01/20/25 [facility] - Study limited d/t body habitus. 3.5 cm L adrenal nodules. HU low. Adenoma is favored. Personal review: non-con HU 16, w con HU 35. Reviewed imaging with pt which shows indeterminate adrenal nodule. May be lipid poor adenoma vs malignancy. Risks of malignancy if > 4 cm. To determine if lesion is metabolically active, require adrenal nodule workup. 20% of adrenal nodules are metabolically active. Also need additional imaging to better evaluate malignancy. R/Bs of adrenal workup discussed. Pt elects to proceed with workup. Adrenal incidentalomas are incidentally detected masses on radiologic imaging obtained for another indication. An increasing number of incidentalomas have been deemed functional due to more common evaluation of subclinical syndromes, such that up to an estimated 20% of adrenal incidentalomas are metabolically active. Hormonal assessment of an adrenal incidentaloma should including testing for cortisol hypersecretion (or Gregory syndrome), pheochromocytoma, and screening for hyperaldosteronism if HTN resistant to 3 anti-hypertensives, low potassium, new adrenal incidentaloma, or concomitant sleep apnea. Will obtain: -Overnight low-dose dexamethasone suppression test: Patient to take 1 mg dexamethasone at 11 PM, obtain serum cortisol at 8 AM -Plasma free metanephrine and normetanephrine levels -Morning plasma aldosterone to renin ratio Follow up pending below or sooner if needed. Pt understands and agrees with plan. -Complete adrenal workup (Cortisol at 8 am, Plasma free metanephrine, plasma aldosterone to renin ratio), will call pt with results -Dexamethasone 1 mg once at 11 pm the night prior to cortisol level, sent to DM -CT Ab w/wo con including washout for adrenal nodule, will call pt with results 2. Kidney stone (N20.0: Calculus of kidney) CT Ab w/wo con 01/20/25 [facility] - Study limited d/t body habitus. >1 cm RLP renal stone. No hydro. Personal review: 1.3 x 1.2 x 0.8 cm. Stone large and very unlikely to pass on his own. Distant hx of kidney stones. Does not recall which side. Did pass his stone but got stuck in the bladder which required surgical intervention. Discussed cysto, urs, laser litho, stone basket, stent placement. Not a great candidate for ESWL d/t body habitus, stone location and size. Denies R sided pain. Explained typical causes of stones. Educated pt on dietary modifications and fluid intake for stone prevention. Wishes to undergo treatment after adrenal workup above. -Goal 90 oz fluid daily (add 1/4 cup lemon/[place] daily) -Diet mods (more fruits/veg, limit animal protein and salt) -Pt to call or go to the ER if they were to experience fever, shaking, chills, uncontrolled nausea,vomiting, or pain -Pt to call if he would like to schedule cysto, right urs, Right laser litho, stone basket, stent placement. The procedural risks, benefits, details, and treatment alternatives have been discussed with the patient. These include bleeding, infection, inability to break or retrieve all of the stone, injury to the ureter (the tube which connects the kidney to the bladder), injury to the kidney scarring of the ureter, and need for repeat procedures, among others. Full informed consent has been obtained. Will order General anesthesia. Follow-up With When Contact Information Tiff Boo MD, URL, URO Additional Instructions: f/u pending adrenal workup Pa (more content not included)...Holzer HospitalComment on above:Result Comment: Electronically Signed By: America Arriaga\.br\Date and Time Signed: 03/08/25 12:55 EDT\.br\Electronically Co-Signed By: Tiff Boo MD\.br\Date and Time Co-Signed: 03/09/25 14:36 EDTCT ABDOMEN WO/W CONon 39-84-[address] [place] [address] CT Scan Report Signed Patient: SHANNON BOLAÑOS MR#: [id number] : 1955 Acct:[id number] Age/Sex: 69 / M ADM Date: 01/20/25 Loc: CT Attending Dr: Onelia Simon NP Ordering Physician: Onelia iSmon NP Date of Service: 01/20/25 Procedure(s): CT abdomen wo/w con Accession Number(s): [id number] cc: Onelia Simon NP [address] [address] Patient Name: SHANNON BOLAÑOS MRN: [id number] date: 1955 Sex: M Assigned Patient Location: CT Current Patient Location: CT Accession/Order Number: [id number] Exam Date: 01/20/2025 09:25 Report Date: 01/20/2025 [...] There is no dilated small bowel loops hggzs-sq-tdca. There is stool within the colon. Subtle [...] Maurice M.D. 01/20/2025 9:43 AM Dictation Location: [place] [address] Electronically authenticated by: [id number] Y Date: 01/20/2025 09:43 Dictated By: Krystal Maurice M.D. Signed By: 01/20/25945 DD/ 2 TD/TT: Circuit Breaker Assembler:TBHRadiology, Radiologist, - 01/20/2025 [place] [address] CT Scan Report Signed Patient: SHANNON BOLAÑOS MR#: [id number] : 1955 Acct:[id number] Age/Sex: 69 / M ADM Date: 01/20/25 Loc: CT Attending Dr: Onelia Simon NP Ordering Physician: Onelia Simon NP Date of Service: 01/20/25 Procedure(s): CT abdomen wo/w con Accession Number(s): [id number] cc: Onelia Simon NP The [place] [address] Patient Name: SHANNON BOLAÑOS MRN: [id number] date: 1955 Sex: M Assigned Patient Location: CT Current Patient Location: CT Accession/Order Number: [id number] Exam Date: 01/20/2025 09:25 Report Date: 01/20/2025 [...] There is no dilated small bowel loops tyoyj-uq-zegd. There is stool within the colon. Subtle [...] Maurice M.D. 01/20/2025 9:43 AM Dictation Location: [place] [address] Electronically authenticated by: [id number] Y Date: 01/20/2025 09:43 Dictated By: Krystal Maurice M.D. Signed By: 01/20/2546 DD/ 2 TD/TT: Circuit Breaker Assembler: KATHLEEN HealthcareRadiology Study observation (narrative)NOM HealthcareCT ABDOMEN WO/W CONOrdered By: Radiologist Radiology on 89-56-9599[facility] Work Phone: US Thyroid glandon 01-48[place], [place] [address] Ultrasound Report Signed Patient: SHANNON BOLAÑOS MR#: [id number] : 1955 Acct:[id number] Age/Sex: 69 / M ADM Date: 01/20/25 Loc: CT Attending Dr: Onelia Simon NP Ordering Physician: Onelia Simon NP Date of Service: 01/20/25 Procedure(s): US thyroid Accession Number(s): [id number] cc: Onelia Simon NP [place] [address] Patient Name: SHANNON BOLAÑOS MRN: [id number] date: 1955 Sex: M Assigned Patient Location: CT Current Patient Location: CT Accession/Order Number: [id number] Exam Date: 01/20/2025 09:20 Report Date: 01/20/2025 [...] Maurice M.D. 01/20/2025 9:25 AM Dictation Location: [place] [address] Electronically authenticated by: [id number] Y Date: 01/20/2025 09:25 Dictated By: Krystal Maurice M.D. Signed By: 01/20/25926 DD/ 4 TD/TT: Circuit Breaker Assembler:LESLIHRadiology, Radiologist, - 01/20/[address] [address] Ultrasound Report Signed Patient: SHANNON BOLAÑOS MR#: [id number] : 1955 Acct:[id number] Age/Sex: 69 / M ADM Date: 01/20/25 Loc: CT Attending Dr: Onelia Simon NP Ordering Physician: Onelia Simon NP Date of Service: 01/20/25 Procedure(s): US thyroid Accession Number(s): [id number] cc: Onelia Simon NP [place] [id number] Patient Name: SHANNON BOLAÑOS MRN: [id number] date: 1955 Sex: M Assigned Patient Location: CT Current Patient Location: CT Accession/Order Number: [id number] Exam Date: 01/20/2025 09:20 Report Date: 01/20/2025 [...] Maurice M.D. 01/20/2025 9:25 AM Dictation Location: [place] [address] Electronically authenticated by: [id number] Y Date: 01/20/2025 09:25 Dictated By: Krystal Maurice M.D. Signed By: 01/20/25926 DD/ 4 TD/TT: Circuit Breaker Assembler: KATHLEEN AparicioRadiology Study observation (narrative)KATHLEEN AparicioUS Thyroid glandOrdered By: Radiologist Radiology on 56-11-6898[facility] Work Phone: rt PULMONARY FUNCTION TESTon 03-76-8598F[place] [address] Respiratory Report Signed Patient: SHANNON BOLAÑOS MR#: [id number] : 1955 Acct:[id number] Age/Sex: 69 / M ADM Date: 01/17/25 Loc: CT Attending Dr: Onelia Simon ORACLE DEVELOPER Ordering Physician: Onelia Simon NP Date of Service: 01/17/25 Procedure(s): RT pulmonary function test Accession Number(s): [id number] cc: [facility] Test Date: 2025-01-17 Pat Name: SHANNON BOLAÑOS Department: Room: - Gender: Male Rare/Endangered Species Specialist: Clementine Moss RRT : 1955 Requested By: ONELIA SIMON Order Number: [id number] Reading MD: Ishan Hurst Interpretive Statements Pulmonary [...] Hurst D.O. Signed By: 01/19/25 1542 DD/ 0 TD/TT: Circuit Breaker Assembler:LESLIHRadiology, Radiologist, - 01/19/2025 [place] [address] Respiratory Report Signed Patient: SHANNON BOLAÑOS MR#: [id number] : 1955 Acct:[id number] Age/Sex: 69 / M ADM Date: 01/17/25 Loc: CT Attending Dr: Onelia Simon NP Ordering Physician: Onelia Simon NP Date of Service: 01/17/25 Procedure(s): RT pulmonary function test Accession Number(s): [id number] cc: [facility] Test Date: 2025-01-17 Pat Name: SHANNON BOLAÑOS Department: Room: - Gender: Male Rare/Endangered Species Specialist: Clementine Moss RRT : 1955 Requested By: ONELIA SIMON Order Number: [id number] Reading MD: Ishan Hurst Interpretive Statements Pulmonary [...] Signed By: 01/19/25 1542 DD/ 0811 TD/TT: Circuit Breaker Assembler: KATHLEEN Perez PULMONARY FUNCTION TESTOrdered By: Radiologist Radiology on 33-40-9307WIKY [employer] Work Phone: aLL HEMOGLOBINon 02-59-4627Htaokubqxf (Bld) [Mass/Vol] 15.3 g/dL14.0 - 18.0 g/dLSALT LAKE BE[facility]IORAL [facility] HealthcareCLINISYNCNOMS HealthcareCT CHEST W CONTRASTon 39-12-3124FzyW[place] [address] CT Scan Report Signed Patient: SHANNON BOLAÑOS MR#: [id number] : 1955 Acct:[id number] Age/Sex: 69 / M ADM Date: 01/17/25 Loc: CT Attending Dr: Onelia Simon NP Ordering Physician: Onelia Simon NP Date of Service: 01/17/25 Procedure(s): CT chest w con Accession Number(s): [id number] cc: Onelia Simon NP [address] [address] Patient Name: SHANNON BOLAÑOS MRN: [id number] date: 1955 Sex: M Assigned Patient Location: CT Current Patient Location: CT Accession/Order Number: [id number] Exam Date: 01/17/2025 09:11 Report Date: 01/17/2025 [...] Maurice M.D. 01/17/2025 9:19 AM Dictation Location: [place] [address] Electronically authenticated by: [id number] Y Date: 01/17/2025 09:19 Dictated By: Krystal Maurice M.D. Signed By: 01/17/25920 DD/ 8 TD/TT: Circuit Breaker Assembler:TBHRadiology, Radiologist, - 01/17/2025 [place] [address] CT Scan Report Signed Patient: SHANNON BOLAÑOS MR#: [id number] : 1955 Acct:[id number] Age/Sex: 69 / M ADM Date: 01/17/25 Loc: CT Attending Dr: Onelia Simon NP Ordering Physician: Onelia Simon NP Date of Service: 01/17/25 Procedure(s): CT chest w con Accession Number(s): [id number] cc: Onelia Simon NP [place] [address] Patient Name: SHANNON BOLAÑOS MRN: [id number] date: 1955 Sex: M Assigned Patient Location: CT Current Patient Location: CT Accession/Order Number: [id number] Exam Date: 01/17/2025 09:11 Report Date: 01/17/2025 [...] Maurice M.D. 01/17/2025 9:19 AM Dictation Location: [place] [address] Electronically authenticated by: [id number] Y Date: 01/17/2025 09:19 Dictated By: Krystal Maurice M.D. Signed By: 01/17/25920 DD/ 8 TD/TT: Circuit Breaker Assembler: CHOATE MEMORIAL HOSPITALKate Kettering Health SpringfieldRadiology Study observation (narrative)[facility] CenterCT CHEST W CONTRASTOrdered By: Radiologist Radiology on 09-63-4664MFFRMissouri Rehabilitation Center Work Phone: rt PULMONARY FUNCTION TESTon 44-56-0388Znmrmwkmu Study observation (narrative)[facility] CenterCA ECHO DOPPLER COMPLETEon 28-81-1063XjrN[place]man, [place] [address] Cardiology Report Signed Patient: SHANNON BOLAÑOS MR#: [id number] : 1955 Acct:[id number] Age/Sex: 69 / M ADM Date: 01/04/25 Loc: CARD Attending Dr: Onelia Simon NP Ordering Physician: Onelia Simon NP Date of Service: 01/04/25 Procedure(s): CA echo doppler complete Accession Number(s): [id number] cc: Onelia Simon NP Patient Name: SHANNON BOLAÑOS MR#: [id number] : 1955 Exam Date: 01/04/2025 Ordering Doctor: [...] 57.37 ml, 57.37 ml Dictated by: Candice Webb M.D. on 01/04/2025 at 17:53 Approved by: Candice Webb M.D. on 01/04/2025 at 18:00 Dictated By: CANDICE WEBB Signed By: 01/04/25 1802 (more content not included)...TBHRadiology, Radiologist, - 01/04/2025 [place] [address] Cardiology Report Signed Patient: SHANNON BOLAÑOS MR#: [id number] : 1955 Acct:[id number] Age/Sex: 69 / M ADM Date: 01/04/25 Loc: CARD Attending Dr: Onelia Simon NP Ordering Physician: Onelia Simon NP Date of Service: 01/04/25 Procedure(s): CA echo doppler complete Accession Number(s): [id number] cc: Onelia Simon NP Patient Name: SHANNON BOLAÑOS MR#: [id number] : 1955 Exam Date: 01/04/2025 Ordering Doctor: BASIM SIMON [employer]INE [employer] TECHNICIAN ECHOCARDIOGRAM REPORT PROCEDURE: CA ECHO DOPPLER COMPLETE [...] 57.37 ml, 57.37 ml Dictated by: Candice Webb M.D. on 01/04/2025 at 17:53 Approved by: Candice Webb M.D. on 01/04/2025 at 18:00 Dictated By: CANDICE WEBB Signed By: 01/04/25 1802 DD/ 1800 TD/TT: Circuit Breaker Assembler: [facility] CenterRadiology Study observation (narrative)[facility] ECHO DOPPLER COMPLETEOrdered By: Radiologist Radiology on 02-96-1379XWPUMissouri Rehabilitation Center Work Phone: TBY VITAMIN D 25 OHon 82-12-6176USRUUKP D27.9 ng/mL [facility] CenterComment on above:<20 ng/mL Vit D deficient 20-<30 ng/mL Vit D insufficient 30-100 ng/mL Vit D sufficient >100 ng/mL Potential Toxicity CLINISYNCNOCT HealthcareALL BASIC METABOLIC PANELon 99-00-8836Goscp gap [Moles/Vol]15.6 mmol/LNOMS HealthcareCalcium [Mass/Vol]10.2 mg/dLHigh8.5 - 10.1 mg/dLNOCT HealthcareChloride [Moles/Vol]98 mmol/L98 - 107 mmol/LNOMS Healthcare CO2 [Moles/Vol]29.9 mmol/L21.0 - 32.0 mmol/LNOMS HealthcareCreatinine [Mass/Vol] 0.85 mg/dL0.70 - 1.30 mg/dLNOMS HealthcareGFR/1.73 sq M.predicted CKD-EPI (S/P/Bld) [Vol rate/Area]>60>=60 mL/min/1.73m 2NOMS HealthcareGlucose [Mass/Vol] 177 mg/qCCwmy82 - 106 mg/dLNOCT HealthcareInterpretation and review of laboratory resultsAbConnecticut Children's Medical Center HealthcarePotassium [Moles/Vol]4.5 mmol/L3.5 - 5.1 mmol/LNOMS HealthcareSodium [Moles/Vol]139 mmol/L136 - 145 mmol/LNOMS HealthcareTBH EGFR-NON AF NORWEGIAN>60>=60 mL/min/1.73m 2NOMS HealthcareUrea nitrogen [Mass/Vol]16 mg/dL7.0 - 18.0 mg/dLNOCT HealthcareUrea nitrogen/Creatinine [Mass ratio]18.8 mg/mgNOCT HealthcareCLINISYNCNDUNCAN REGIONAL [facility] WgtdqpcbxkFuH8u (Bld) [Mass fraction]on 53-51-3951Dlmtgueradntbm and review of laboratory resultsAbMcLaren Bay Special Care Hospital HealthcareLaboratory - Hematology and Cell countson 85-37-3239VoX5e (Bld) [Mass fraction]7 %[facility] HealthcareGlucose Glucometer (BldC) [Mass/Vol]Ordered By: Van Trinh on 49-97-7478Nqgtsav [Mass/Vol]190 mg/dLBethesda North HospitalComment on above:Random Glucose Reference Range is dependent on time and content of last meal. Glucose of more than 200 mg/dL in a nonstressed, ambulatory subject supports the diagnosis of Diabetes Mellitus.No Panel InformationOrdered By: Van Trinh on 76-18-5125Zfchfcu Glucose CommentGlu2: cleaned [facility] ClinicNM ALEJANDRO PERF SPECT REST STRon 03-35-7947BgiNordman, [place] [address] Nuclear Medicine Report Signed Patient: SHANNON BOLAÑOS MR#: [id number] : 1955 Acct:[id number] Age/Sex: 68 / M ADM Date: 10/05/23 Loc: [place] Attending Dr: Shaikh Leanna Holt Ordering Physician: Shaikh Yanet Ram Date of Service: 10/05/23 Procedure(s): NM alejandro perf SPECT rest str Accession Number(s): [id number] cc: Shaikh Yanet Ram Patient Name: SHANNON BOLAÑOS MR#: [id number] : 1955 Exam Date: 10/05/2023 Ordering Doctor: SHAIKH Holly RAM . RADIOLOGY REPORT PROCEDURE: NM ALEJANDRO PERF SPECT REST STR COMPARISON: None. INDICATIONS: [...] By: Jose Manuel Judd M.D. Signed By: 10/08/2333 DD/ 1 TD/TT: Circuit Breaker Assembler:LESLIHRadiology, Radiologist, - 10/08/2023 [place] [address] Nuclear Medicine Report Signed Patient: SHANNON BOLAÑOS MR#: [id number] : 1955 Acct:[id number] Age/Sex: 68 / M ADM Date: 10/05/23 Loc: [place] Attending Dr: Shaikh Leanna Holt Ordering Physician: Shaikh Yanet Ram Date of Service: 10/05/23 Procedure(s): NM alejandro perf SPECT rest str Accession Number(s): [id number] cc: Shaikh Yanet Ram Patient Name: SHANNON BOLAÑOS MR#: [id number] : 1955 Exam Date: 10/05/2023 Ordering Doctor: SHAIKH Holly RAM . RADIOLOGY REPORT PROCEDURE: NM ALEJANDRO PERF SPECT REST STR COMPARISON: None. INDICATIONS: [...] By: Jose Manuel Judd M.D. Signed By: 10/08/23932 DD/ 1 TD/TT: Circuit Breaker Assembler: KATHLEEN AparicioRadiology Study observation (narrative)KATHLEEN HealthcareNM ALEJANDRO PERF SPECT REST STROrdered By: Radiologist Radiology on 38-03-3228XWXZ Healthcare Work Phone: ecg 12-LEADon 19-92-0812QzbNordman, [place] [address] Electrocardiograph Report Signed Patient: SHANNON BOLAÑOS MR#: [id number] : 1955 Acct:[id number] Age/Sex: 68 / M ADM Date: 08/28/23 Loc: CARD Attending Dr: Shaikh Leanna Holt Ordering Physician: Shaikh Yanet Ram Date of Service: 08/28/23 Procedure(s): ECG 12 lead Accession Number(s): [id number] cc: The [facility] Test Date: 2023 Pat Name: SHANNON BOLAÑOS Department: Room: - Gender: Male Rare/Endangered Species Specialist: : 1955 Requested By: SHAIKH LEANNA Order Number: [id number] Reading MD: JUAN MOMIN Measurements Intervals [place] Rate: 89 P: 51 MS: 159 QRS: 47 QRSD: 111 T: 47 QT: 337 QTc: 411 Interpretive Statements SINUS RHYTHM LOW QRS VOLTAGE IN PRECORDIAL LEADS [QRS DEFLECTION < 1.0 mV IN CHEST LEADS] MODERATE INTRAVENTRICULAR CONDUCTION DELAY [110+ ms QRS DURATION] No previous ECG available for comparison Electronically Signed On 08-29-2023 7:11:01 EST by JUAN MOMIN Dictated By: Juan Momin D.O. Signed By: 08/29/2371008/29/23710 DD/ 7 TD/TT: Circuit Breaker Assembler:ARMANDOadiologJesus Manuel ahuja MD - 08/29/2023 The [place] [id number] Electrocardiograph Report Signed Patient: SHANNON BOLAÑOS MR#: [id number] : 1955 Acct:[id number] Age/Sex: 68 / M ADM Date: 08/28/23 Loc: CARD Attending Dr: Shaikh Leanna Holt Ordering Physician: Shaikh Yanet Ram Date of Service: 08/28/23 Procedure(s): ECG 12 lead Accession Number(s): [id number] cc: The [facility] Test Date: 2023 Pat Name: SHANNON BOLAÑOS Department: Room: - Gender: Male Rare/Endangered Species Specialist: : 1955 Requested By: SHAIKH LEANNA Order Number: [id number] Reading MD: JUAN MOMIN Measurements Intervals [place] Rate: 89 P: 51 MS: 159 QRS: 47 QRSD: 111 T: 47 QT: 337 QTc: 411 Interpretive Statements SINUS RHYTHM LOW QRS VOLTAGE IN PRECORDIAL LEADS [QRS DEFLECTION < 1.0 mV IN CHEST LEADS] MODERATE INTRAVENTRICULAR CONDUCTION DELAY [110+ ms QRS DURATION] No previous ECG available for comparison Electronically Signed On 08-29-2023 7:11:01 EST by JUAN MOMIN Dictated By: Juan Momin D.O. Signed By: 08/29/23 0708/29/23710 DD/ 7 TD/TT: Circuit Breaker Assembler: KATHLEEN Nicolas 12-LEADOrdered By: Radiologist Radiology on 39-84-8545BXFA [employer] Work Phone: ECG 12-LEADon 50-26-3016Ncukgmhtj Study observation (narrative)[facility] AUTO DIFFon 71-69-5403URHV #0.1 103/ulNormal 0.0-0.1Doctors HospitalComment on above:Performed By: #### CBC #### [facility] [address] [place] [address] Dr. Brandon Rosephils/100 WBC (Bld)0.8 %Normal0.2-2.0[facility] Comment on above:Performed By: #### CBC #### [facility] [address] [place] [address] Dr. Brandon Robins #0.1 103/ulNormal0.0-0.7The [facility] CenterComment on above: Performed By: #### CBC #### [facility] [address] [place] [address] Dr. Brandon Crumosinophils/100 WBC (Bld)1.7 %Normal0.9-7.0The [facility] Comment on above:Performed By: #### CBC #### [facility] [address] [place] [address] Dr. Brandon Crumrythrocyte distribution width (RBC) [Ratio]14.0 %Bmpbxa61.0-15.0 The [facility] CenterComment on above:Performed By: #### CBC #### [facility] [address] [place] [address] Dr. Brandon GilmoreHematocrit (Bld) [Volume fraction]42.7 %Unzrtr34.0-54.0The [facility] CenterComment on above:Performed By: #### CBC #### [facility] [address] [place] [address] Dr. Brandon GilmoreHemoglobin (Bld) [Mass/Vol]14.9 g/qUOhsjrb21.0-18.0The [facility]uff[facility] Hospitalment on above:Performed By: #### CBC #### [facility] [address] [place] [address] Dr. Brandon Canales #0.02 10e3/ulNormal0.00-0.03The [facility] CenterComment on above:Performed By: #### CBC #### [facility] [address] [place] [address] Dr. Brandon Canales %0.3 %Normal0.0-0.5The [facility] CenterComment on above: Performed By: #### CBC #### [facility] [address] [place] [address] Dr. Brandon Joshua #1.9 103/ulNormal1.2-3.8The [facility] CenterComment on above:Performed By: #### CBC #### [facility] [address] [place] [address] Dr. Brandon Cormiermphocytes/100 WBC (Bld)25.0 %Qhdwcg25.5-60.0The [facility] CenterComment on above:Performed By: #### CBC #### [facility] [address] [place] [address] Dr. Brandon JensenUAL DIFF REQNONormalThe [facility] CenterComment on above: Performed By: #### CBC #### [facility] [address] [place] [address] Dr. Brandon Rivera (RBC) [Entitic mass]29.1 naNsnloo16.9-34.0The [facility] CenterComment on above:Performed By: #### CBC #### [facility] [address] [place] [address] Dr. Brandon Rivera (RBC) [Mass/Vol]34.9 g/wXUqvskp50.9-35.2The [facility] CenterComment on above:Performed By: #### CBC #### [facility] [address] [place] [address] Dr. Brandon Rivera (RBC) [Entitic vol]83.4 qVHusgxc23.0-94.0The [facility] CenterComment on above:Performed By: #### CBC #### [facility] [address] [place] [address] Dr. Brandon Carrero #0.5 103/ulNormal0.3-0.8The [facility] CenterComment on above:Performed By: #### CBC #### [facility] [address] [place] [address] Dr. Brandon Gasparocytes/100 WBC (Bld)6.1 %Normal1.7-12.0The [facility] Comment on above:Performed By: #### CBC #### [facility] [address] [place] [address] Dr. Brandon Monahan #5.1 103/ulNormal1.4-6.5The [facility] CenterComment on above:Performed By: #### CBC #### [facility] [address] [place] [address] [address] Brandon GilmoreNeutrophils/100 WBC (Bld)66.1 %Gqatvf91.0-75.0[facility] on above:Performed By: #### CBC #### [facility] [address] [place] [address] [address] Brandon GilmorePlatelet mean volume (Bld) [Entitic vol]9.7 fLNormal9.5-13.5The [facility] on above:Performed By: #### CBC #### [facility] [address] [place] [address] Dr. Brandon GilmorePLT195 103/goIxvhqg692-682Fas [facility] on above: Performed By: #### CBC #### [facility] [address] [place] [address] Dr. Brandon GilmoreRBC5.12 106/ulNormal4.70-6.10The [facility] on above:Performed By: #### CBC #### [facility] [address] [place] [address] Dr. Brandon GilmoreWBC7.7 103/ulNormal4.0-11.0The [facility] on above: Performed By: #### CBC #### [facility] [address] [place] [address] Dr. Brandon GilmoreGLYCOHEMOGLOBIN A1Con 44-76-0316EMY RECOMMENDATIONSEE BELOWNormpr The [facility] on above:Result Comment: ADA RECOMMENDED LIMIT 4.0 - 6.0 ADA THERAPEUTIC TARGET < 7.0 ACTION SUGGESTED > 7.0Performed By: #### A1C #### [facility] [address] [place] [address] Dr. Brandon GilmoreGlucose [Mass/Vol]137 mg/dLNormalThParma Community General Hospital on above:Performed By: #### A1C #### [facility] [address] [place] [address] Dr. Brandon GilmoreHbA1c (Bld) [Mass fraction]6.4 %Critically high4.5-6.2Doctors HospitalComment on above:Performed By: #### A1C #### [facility] [address] [place] [address] [address] Brandon CrouchID PROFILEon 28-45-8848TBMG-HDL RATIO NORMSCleveland Clinic Hillcrest Hospital on above:Result Comment: 3.3 - 4.4 LOW RISK 4.4 - 7.1 AVERAGE RISK 7.1 - 11.0 MODERATE RISK >11.0 HIGH RISKPerformed By: #### LIPID, CMP #### [facility] [address] [place] [address] [address] Brandon GilmoreCholesterol [Mass/Vol]196 mg/dLNormal<=200The [facility] Comment on above:Performed By: #### LIPID, CMP #### [facility] [address] [place] [address] [address] Brandon GilmoreCholesterol in HDL [Mass/Vol]48 mg/dSPlrmpl81-04Pno [facility] CenterComment on above:Performed By: #### LIPID, CMP #### [facility] [address] [place] [address] [address] Brandon GilmoreCholesterol in LDL [Mass/Vol]101.8 mg/dLZanesville City HospitalComwalter p. reuther psychiatric hospital on above:Performed By: #### LIPID, CMP #### [facility] [address] [place] [address] [address] Brandon GilmoreCholesterlatasha.total/Cholesterol in HDL [Mass ratio]4.1 {ratio} NormalThe [facility] CenterComment on above:Performed By: #### LIPID, CMP #### [facility] [address] [place] [address] [address] Brandon GilmoreHDL NORMAL> or = 60 mg/dl - LOW CARDIOVASCULAR RISK <40 mg/dl - HIGH CARDIOVASCULAR RISKZanesville City HospitalComwalter p. reuther psychiatric hospital on above:Performed By: #### LIPID, CMP #### [facility] [address] [place] [address] [address] Brandon GilmoreLDL CALC NORMALSEE [facility] HospitalComment on above:Result Comment: <100 mg/dl OPTIMAL 100 - 129 mg/dl NEAR OR ABOVE OPTIMAL 130 - 159 mg/dl BORDERLINE HIGH 160 - 189 mg/dl HIGH >190 mg/dl VERY HIGH Performed By: #### LIPID, CMP #### [facility] [address] [place] [address] Dr. Brandon GilmoreTriglyceride [Mass/Vol]231 mg/dLCritically high<=150The [facility] CenterComment on above:Performed By: #### LIPID, CMP #### [facility] [address] [place] [address] Dr. Brandon GilmoreVLDL CALC46.2 mg/dLZanesville City HospitalComment on above: Performed By: #### LIPID, CMP #### [facility] [address] [place] [address] Dr. Brandon HernandezROALB CREAT RATIO RANDOMon 52-25-4784kSJZ4.7 mg/LNormal<=30.0 The [facility] CenterComment on above:Performed By: #### MCRR #### [facility] [address] [place] [address] Dr. Brandon Briseno CR RATIO20.6 mg/gNormal0.0-29.9The [facility] CenterComment on above:Performed By: #### MCRR #### [facility] [address] [place] [address] Dr. Brandon Briseno CR RATIO RANGESEE BELOWNoNationwide Children's HospitalComment on above:Result Comment: NO MICROALBUMINURIA 0-29 MG/G CLINICAL MICROALBUMINURIA 30-300 MG/G MACROALBUMINURIA >300 MG/GPerformed By: #### MCRR #### [facility] [address] [place] [address] Dr. Brandon Sena CREAT82.51 mg/vZCiqyyz83.00-300.00[facility] Comment on above:Performed By: #### MCRR #### [facility] [address] [place] [address] Dr. Brandon Ennis 14(COMP METB)on 90-48-7259Nhivgfr [Mass/Vol]4.0 g/dLNormal 3.4-5.0The [facility] CenterComment on above:Performed By: #### LIPID, CMP #### [facility] [address] [address] [address] Brandon GilmoreAlbumin/Globulin [Mass ratio]1.2 {ratio}NormalThe [facility] CenterComment on above:Performed By: #### LIPID, CMP #### [facility] [address] [address] [address] Brandon Williamson [Catalytic activity/Vol]90 U/MFphozn57-006Wle [facility] CenterComment on above:Performed By: #### LIPID, CMP #### [facility] [address] [address] [address] Brandon Marcos [Catalytic activity/Vol]25 U/TLbhvbq09-00Cks [facility] CenterComment on above:Performed By: #### LIPID, CMP #### [facility] [address] [address] [address] Brandon Crews gap [Moles/Vol]10.9 mmol/LNormalThe [facility] Comment on above:Performed By: #### LIPID, CMP #### [facility] [address] [address] [address] Brandon Sánchez [Catalytic activity/Vol]17 U/DUqvwtf88-54Fto [facility] on above:Performed By: #### LIPID, CMP #### [facility] [address] [address] [address] Brandon GilmoreBilirubin [Mass/Vol]0.4 mg/dLNormal0.2-1.0The [facility] Comment on above:Performed By: #### LIPID, CMP #### [facility] [address] [address] [address] Brandon GilmoreCalcium [Mass/Vol]10.1 mg/dLNormal8.5-10.1The [facility] Comment on above:Performed By: #### LIPID, CMP #### [facility] [address] [address] [address] Brandon GilmoreChloride [Moles/Vol]106 mmol/FUsbflw19-154[facility] Comment on above:Performed By: #### LIPID, CMP #### [facility] [address] [address] [address] Brandon GilmoreCO2 [Moles/Vol]29.4 mmol/ZCyhuks17.0-32.0The [facility] Comment on above:Performed By: #### LIPID, CMP #### [facility] [address] [address] [address] Brandon GilmoreCreatinine [Mass/Vol]0.78 mg/dLNormal0.70-1.30The [facility] CenterComment on above:Performed By: #### LIPID, CMP #### [facility] [address] [place] [address] Dr. Brandon CrumGFR-AF NORWEGIAN>60Normal>=60The [facility] CenterComment on above:Performed By: #### LIPID, CMP #### [facility] [address] [place] [address] Dr. Brandon CrumGFR-NON AF NORWEGIAN>60Normal>=60The [facility] CenterComment on above:Performed By: #### LIPID, CMP #### [facility] [address] [place] [address] Dr. Brandon GilmoreGlobulin (S) [Mass/Vol]3.3 g/dLNormalThe [facility] CenterComment on above:Performed By: #### LIPID, CMP #### [facility] [address] [place] [address] Dr. Brandon GimloreGlucose [Mass/Vol]213 mg/dLCritically qpmg36-432DdoDoctors HospitalComment on above:Performed By: #### LIPID, CMP #### [facility] [address] [place] [address] Dr. Brandon GilmorePotassium [Moles/Vol]4.3 mmol/LNormal3.5-5.1The [facility] Comment on above:Performed By: #### LIPID, CMP #### [facility] [address] [place] [address] Dr. Brandon GilmoreProtein [Mass/Vol]7.3 g/dLNormal6.4-8.2[facility] Comment on above:Performed By: #### LIPID, CMP #### [facility] [address] [address] [address] Brandon Almonteum [Moles/Vol]142 mmol/HXlyqyj531-274Sup [facility] Comment on above:Performed By: #### LIPID, CMP #### [facility] [address] [address] [address] Brandon Joseph nitrogen [Mass/Vol]14.0 mg/dLNormal7.0-18.0The [facility] CenterComment on above:Performed By: #### LIPID, CMP #### [facility] [address] [place] [address] Dr. Brandon Joseph nitrogen/Creatinine [Mass ratio]17.9 mg/mgNormalThe [facility] CenterComment on above:Performed By: #### LIPID, CMP #### [facility] [address] [place] [address] Dr. Brandon Catalan Fluon 74-21-9950TIBET Ab CF (S) [Titer]NegativeVivakor Other FLUBV Ab CF (S) [Titer]NegativeVivakor Other Vital Signs Date TimeVital SignValuePerforming PxebxbwtdEofzitgj43-11-0411 13:06-0500 Respiratory rate16 /[facility]11-07-2025 13:06-0500 SaO2% (BldA) [Mass fraction]92 %[facility]11-07-2025 12:03-0500Diastolic blood riaalwvh84 mm[Hg][facility] 06-02-2025 12:03-0500Heart rate92 /[facility] 06-02-2025 12:03-0500Inhaled oxygen flow rate1 L/[facility]11-07-2025 12:03-0500Systolic blood phymivpu975 mm[Hg][facility]11-07-2025 10:05-0500Body rbtyzupadpf13.7 [degF][facility]11-07-2025 06:36-0500Body wuocxk515.64 cmBet[facility]11-07-2025 06:36-0500Body ebbysa179.9 [facility]10-20-2025 14:30-0400Body fkgpoy707.6 cmBenjamin Murcek DO Work Phone: [phone] [place], [place] [address]Wimxqcokzo43-82-4659 14:30-0400Body mass index (BMI) [Ratio]51.65 kg/i6Rtvrpmha Murcek DO Work Phone: [phone]10-20-2025 14:30-0400Body souyum649.15 kgBenjamin Murcek DO Work Phone: [phone] [place], [place] [address]Crykidaacs80-17-6700 14:46-0400Body inlzbn289.6 cmBenjamin Murcek DO Work Phone: [phone] [place], [place] [address]Ehpxsteisa73-91-6049 14:46-0400Body mass index (BMI) [Ratio]51.65 kg/m9Rllgesgw Murcek DO Work Phone: 1([phone] [place], [place] [address]Zfpppsmbdy24-34-5139 14:46-0400Body csajbn139.15 kgBenjamin Murcek DO Work Phone: [phone] [place], [place] [address]Fjdvryxiya63-88-3366 10:57-0400Diastolic blood mm[Hg][facility]09-02-2025 10:57-0400Heart rate95 /[facility]09-02-2025 10:57-0400Respiratory rate18 /[facility]09-02-2025 10:57-3270JuW1% (BldA) [Mass fraction]93 %[facility]09-02-2025 10:57-0400 Systolic blood uyatgkox951 mm[Hg][facility]09-02-2025 08:57-0400Body fqpwra170.64 cmBet[facility]09-02-2025 08:57-0400Body jqproi330.14 [facility]07-30-2025 09:47-0400Body mass index (BMI) [Ratio]50.71 kg/m2Lisa Geovannaholz ORACLE DEVELOPER Work Phone: [facility] CenterOjjnhwmbrm13-33-9118 09:47-0400Body temperature 98.49 [degF]Onelia Geovannaholz ORACLE DEVELOPER Work Phone: [facility] CenterAmfszysrep89-34-3356 09:47-0400Body jdjhne198.52 kgLisa Geovannaholz ORACLE DEVELOPER Work Phone: [facility] CenterZjqoeructc17-41-3301 09:47-0400Diastolic blood ewrqajvv81 mm[Hg]Onelia Geovannaholz ORACLE DEVELOPER Work Phone: [facility] CenterBfowuifkrb82-98-3738 09:47-0400Heart rate87 /min Onelia Geovannaholz ORACLE DEVELOPER Work Phone: [facility] CenterLclnqmcncb44-07-1374 09:47-0400Respiratory rate24 /minLisa Geovannaholz ORACLE DEVELOPER Work Phone: [facility] CenterQsylbfbsio34-87-6205 09:47-2264SlI9% (BldA) [Mass fraction]96 %Onelia Geovannaholz ORACLE DEVELOPER Work Phone: [facility] CenterSqnldlqqxg56-21-4477 09:47-0400Systolic blood mm[Hg]Onelia Geovannaholz ORACLE DEVELOPER Work Phone: [facility] CenterIemcioiaza71-49-6788 14:49-0400Body mass index (BMI) [Ratio]51.62 kg/m2Lisa Luishholz ORACLE DEVELOPER Work Phone: [facility] CenterHneaplfcia49-10-6424 14:49-0400Body temperature 97.81 [degF]Onelia Geovannaholz ORACLE DEVELOPER Work Phone: [facility] CenterMclrjozfcq41-48-9115 14:49-0400Body shygeg563.06 kgLisa Luishholz ORACLE DEVELOPER Work Phone: [facility] CenterSwgwkvqsox62-90-3223 14:49-0400Diastolic blood mm[Hg]Onelia Radhaz ORACLE DEVELOPER Work Phone: [facility] CenterGviqftpgqz18-91-7006 14:49-0400Heart rate95 /min Onelia Geovannaholz ORACLE DEVELOPER Work Phone: [facility] CenterVmmnkohtac29-92-6339 14:49-0400Respiratory rate20 /minLisa Luishholz ORACLE DEVELOPER Work Phone: [facility] CenterLlulhouyxq30-61-0126 14:49-0872XjA3% (BldA) [Mass fraction]92 %Onelia Geovannaholz ORACLE DEVELOPER Work Phone: [facility] CenterGtmfftqwmx04-01-8393 14:49-0400Systolic blood fulhvprp249 mm[Hg]Onelia Geovannaholz ORACLE DEVELOPER Work Phone: [facility] CenterRblcgkhanp50-88-4434 13:29-0400Body mass index (BMI) [Ratio]52 kg/m2Lisa Geovannaholz ORACLE DEVELOPER Work Phone: [facility] CenterAtggeevqzj73-58-1707 13:29-0400Body temperature 97.81 [degF]Onelia Geovannaholz ORACLE DEVELOPER Work Phone: [facility] CenterHkcssscfuo28-32-0567 13:29-0400Body egsshc007.15 kgLisa Geovannaholz ORACLE DEVELOPER Work Phone: [facility] CenterFeunutnkpb96-04-1585 13:29-0400Diastolic blood iakiplha68 mm[Hg]Onelia Geovannaholz ORACLE DEVELOPER Work Phone: [facility] CenterQhocxhqkww28-98-7159 13:29-0400Heart rate91 /min Onelia Geovannaholz ORACLE DEVELOPER Work Phone: [facility] CenterCewxpvokqm03-99-6922 13:29-0400Respiratory rate24 /minLisa Luishholz ORACLE DEVELOPER Work Phone: [facility] CenterJljwhtixpz67-41-1368 13:29-0450PdT6% (BldA) [Mass fraction]93 %Onelia Luishholz ORACLE DEVELOPER Work Phone: [facility] CenterXwadhniuej10-87-6106 13:29-0400Systolic blood areyhcbf930 mm[Hg]Onelia Austinrashaunalaina ORACLE DEVELOPER Work Phone: [facility] CenterDielstjeni32-07-0941 15:36-0500Body jceubv091.6 cmBrittany Malik ORACLE DEVELOPER Work Phone: [facility] CenterGzrdvjkith59-44-3847 15:36-0500Body mass index (BMI) [Ratio]51.33 kg/i8Rzpjjlue Malik ORACLE DEVELOPER Work Phone: [facility] CenterXgternmsew77-60-8857 15:36-0500Body temperature 97.81 [degF]Samantha Malik ORACLE DEVELOPER Work Phone: [facility] CenterDjiibngnzl93-78-3922 15:36-0500Body ejozex690.24 kgBrittany Malik ORACLE DEVELOPER Work Phone: [facility] CenterLpijzprywq10-47-9898 15:36-0500Diastolic blood mnslukeq04 mm[Hg]Samantha Malik ORACLE DEVELOPER Work Phone: [facility] CenterQukznjytma77-29-7957 15:36-0500Heart bbrc055 /min Samantha Malik ORACLE DEVELOPER Work Phone: [facility] CenterLnzdckbfxp46-61-2215 15:36-0500Respiratory rate16 /minBrnilton Malik ORACLE DEVELOPER Work Phone: [facility] CenterAzqmqjhonb75-55-9053 15:36-8945IcF3% (BldA) [Mass fraction]93 %Samantha Malik ORACLE DEVELOPER Work Phone: [facility] CenterWbqzawvdnj58-91-6378 15:36-0500Systolic blood phazcovz641 mm[Hg]Samantha Malik ORACLE DEVELOPER Work Phone: [facility] CenterPszbaohhso24-52-1532 13:41-0500Body .6 cmSmithatomas Edmundo DPM Work Phone: noFreeman [facility]os[facility] HospitalMumfrdglwt87-68-7203 13:41-0500Body mass index (BMI) [Ratio]52.29 kg/k4JfyinlghEmmanuel Jiang DPM Work Phone: [facility] CenterVstlnariyx29-41-6661 13:41-0500Body pzginh022.97 kgEmmanuel Jiang DPM Work Phone: [facility] CenterXyvqavmgkd61-17-5889 13:41-0500Respiratory rate18 /minEmmanuel Jiang DPM Work Phone: [facility] CenterOlvurkxlvn14-90-7673 14:36-0500Body ulvrjf276.6 cmJingany Malik ORACLE DEVELOPER Work Phone: [facility] CenterYlzwllupji30-04-1040 14:36-0500Body mass index (BMI) [Ratio]52.33 kg/c7Pxrwpejy Malik ORACLE DEVELOPER Work Phone: [facility] CenterWqpjdxtqef31-86-0078 14:36-0500Body temperature 96.49 [degF]Samanhta Malik ORACLE DEVELOPER Work Phone: [facility] CenterZiojuifsun67-80-7584 14:36-0500Body joxmry342.06 kgBrittany Malik ORACLE DEVELOPER Work Phone: [address] [address]Lfnoziwisp55-77-6049 14:36-0500Diastolic blood edvkcgks49 mm[Hg]Samantha Malik ORACLE DEVELOPER Work Phone: [facility] CenterZnpnzpbdau42-30-0124 14:36-0500Heart rate91 /min Samantha Malik ORACLE DEVELOPER Work Phone: [address] [address]Yideugwivy46-89-9585 14:36-0500Respiratory rate18 /minBrittany Malik ORACLE DEVELOPER Work Phone: [address] [address]Nqrnybmpqj20-96-8109 14:36-6180SuD7% (BldA) [Mass fraction]93 %Samantha Malik ORACLE DEVELOPER Work Phone: [address] [address]Apindvhnlm63-36-2346 14:36-0500Systolic blood oxwjhwgw135 mm[Hg]Samantha Malik ORACLE DEVELOPER Work Phone: [facility] CenterZvfhablsgt93-92-2129 11:05-0400Diastolic blood jgkyhvcq61 mm[Hg][facility]10-03-2024 11:05-0400Heart rate93 /[facility]10-03-2024 11:05-0400Respiratory rate20 /[facility]10-03-2024 11:05-8903DgP0% (BldA) [Mass fraction]95 %[facility]10-03-2024 11:05-0400 Systolic blood vcwqahri282 mm[Hg][facility]10-03-2024 09:02-0400Body fgmave276.18 cmBet[facility]10-03-2024 09:02-0400Body basqkh694.14 kgBet[facility]09-19-2024 15:42-0400Body snvbpu419.6 cmEmmanuel Jiang DPM Work Phone: [facility] CenterXiqexxmwcd28-89-2089 15:42-0400Body mass index (BMI) [Ratio]51.65 kg/j7EieifppjEmmanuel Jiang DPM Work Phone: [facility] CenterHliytuviri67-22-1938 15:42-0400Body .15 kgEmmanuel Jiang DPM Work Phone: [facility] CenterZrejbenlgs31-12-6841 15:42-0400Diastolic blood hcojutez51 mm[Hg]Emmanuel Jiang DPM Work Phone: [facility] CenterUvstcopuwv55-36-3542 15:42-0400Heart rate74 /min Emmanuel Jiang DPM Work Phone: [facility] CenterUheekjsqhz88-04-9710 15:42-0400Respiratory rate18 /minEmmanuel Jiang DPM Work Phone: [facility] CenterIhyvlsjedb23-75-9842 15:42-0400Systolic blood arcoacoh995 mm[Hg]Emmanuel Jiang DPM Work Phone: [facility] CenterNyilozpirf57-85-8696 14:46-0400Body oqaayk188.6 cmBrittany Malik ORACLE DEVELOPER Work Phone: NOFreeman [facility]osho HospitalFaodrjwgqv42-09-6443 14:46-0400Body mass index (BMI) [Ratio]51.65 kg/y7SxxedzazSamantha Shermantrick ORACLE DEVELOPER Work Phone: NOFreeman Neosho HospitalFhyfujuckf64-57-2043 14:46-0400Body temperature 99.3 [degF]Samantha Shermantrick ORACLE DEVELOPER Work Phone: [facility] CenterCsxbfewmpv34-83-3840 14:46-0400Body xfumdn579.15 kgSamantha Shermantrick ORACLE DEVELOPER Work Phone: [facility] CenterQhyzsxebls73-49-4345 14:46-0400Diastolic blood jleoduyl91 mm[Hg]Samantha Shermantrick ORACLE DEVELOPER Work Phone: [facility] CenterHhdxjodvol01-06-6554 14:46-0400Heart rate97 /min Samantha Shermantrick ORACLE DEVELOPER Work Phone: [facility] HealthcareComment on above:95% H720-05-1010 14:46-0400Systolic blood grxxadru935 mm[Hg]Samantha Shermantrick ORACLE DEVELOPER Work Phone: [facility] CenterXecygwvuvs62-44-6789 15:27-0500Body .6 Ruddy Ram MD Work Phone: [facility] CenterZlelkkkjof05-72-3241 15:27-0500Body mass index (BMI) [Ratio]52.62 kg/f0UjasgaShaikh Leanna WYNNE Work Phone: NOFre[facility]os[facility] HospitalOdnccukjwp93-47-5169 15:27-0500Body temperature 96.8 [degF]Shaikh Leanna WYNNE Work Phone: NOFreeman [facility]osho HospitalWwjlwdgakm94-60-6611 15:27-0500Body pgkari260.87 Claudio Ram MD Work Phone: [facility] CenterRoxzliddvw85-64-5570 15:27-0500Diastolic blood ssdxmbky24 mm[Hg]Shaikh Leanna WYNNE Work Phone: [employer], RichmondRuphnbqfir39-51-5824 15:27-0500Heart rate98 /min Shaikh Leanna WYNNE Work Phone: [employer] [facility], RichmondAezeeowdgp07-72-4538 15:27-5640AzS1% (BldA) [Mass fraction]95 %Shaikh Leanna WYNNE Work Phone: [employer] [facility], RichmondBlzgaswmci43-08-0780 15:27-0500Systolic blood crgtdeix566 mm[Hg]Shaikh Leanna WYNNE Work Phone: [employer] [facility] RichmondRetvcqdxlb06-79-9052 18:05-0400Body cmhmau936.64 Marco Heaton Other [employer] Other 08-14-2023 18:05-0400Body mass index (BMI) [Ratio] 52.45 kg/f8KlseepBan Heaton Other [employer] Other 08-14-2023 18:05-0400Body emuvkawdxdy19.5 [degF]Ban Heaton Other [employer] Other 08-14-2023 18:05-0400Body dhovbh868.42 kgBan Heaton Other [employer] Other 08-14-2023 18:05-0400Diastolic blood idyfoukv70 mm[Hg] Ban Heaton Other [employer] Other 08-14-2023 18:05-0400Respiratory rate18 /minBan Heaton Other [employer] Other 08-14-2023 18:05-2265ZkB5% (BldA) [Mass fraction]97 % Ban Bustilloley Other notamy[employer] Other 08-14-2023 18:05-0400Systolic blood cuhudhlu662 mm[Hg] Ban Heaton Other [employer] Other 12-17-2021 12:30-0500Body zinqho062.64 cmPcourtney Mitchell Other [employer] Other 12-17-2021 12:30-0500Body mass index (BMI) [Ratio] 51.64 kg/l7Pywuad Paula Other [employer] Other 12-17-2021 12:30-0500Body gxyhicocyro18.3 [degF]Ema Barkermond Other [employer] Other 12-17-2021 12:30-0500Body betpnv373.15 kgEma Mitchell Other [employer] Other 12-17-2021 12:30-1573EaF5% (BldA) [Mass fraction]92 % Ema Mitchell Other [employer] Other Encounters Encounter DateEncounter TypeCare ProviderFacilityStart: 06-05-2025 End: 41-42-7793zdmvqnslicUMOGRUCI W MURCEKNot AvailableStart: 06-02-2025 End: 97-48-1958Qmkocrwy Result EncounterBengabriela Rouse Murcek DO Work Phone: noms External Department UnsolicitedStart: 06-02-2025 End: 15-59-2955Kdjqvggc Result EncounterBengabriela Rouse Murcek DO Work Phone: noms External Department UnsolicitedStart: 06-02-2025 End: 29-47-1893Xdhkxspdo to same day surgery centerBelui Ayers DO-[facility]Start: 06-02-2025 End: 75-56-7870pkciydcqbwEXK STAFF-[facility] CenterStart: 05-19-2025 End: 55-12-6503Gjgynda encounter procedureBelui Ayers UZ-Inl-Ujuetazw Testing Work Phone: Start: 05-19-2025 End: 76-63-4871flstftjgfsYVT PZNUS-Opx-Bghoxppc TestingStart: 05-19-2025 Encounter for preprocedural laboratory examinationBemahadkristofer Gamal [facility] GroupStart: 05-19-2025 End: 28-22-9340Gtaxlcah Result EncounterBengabriela Ayers DO Work Phone: noms External Department UnsolicitedStart: 05-19-2025 End: 01-74-5922Dnwhryiv Result EncounterBengabriela Ayers DO Work Phone: noms External Department UnsolicitedStart: 05-15-2025 End: 02-55-7889Ptwmbk outpatient visit 25 minutesBengabriela Ayers DO Work Phone: NOOP [facility] OtolaryngologyComment on above:Thyroid mass (Primary Dx)Start: 05-15-2025 End: 76-58-0788hobvjqxiihDWRVYOKK W MURCEKNot AvailableStart: 05-15-2025 End: 59-22-1866Siahqv flowsheetBenfatemehmin Padma Fishercek DO Work Phone: noms [facility] OtolaryngologyStart: 05-15-2025 End: 58-48-2121Mxxvue flowsheetBenjamin W Murcek DO Work Phone: noms [facility] OtolaryngologyStart: 05-05-2025 End: 98-71-2086ktdebsqkowRWBFFKKN W MURCEKNot AvailableStart: 04-24-2025 End: 09-25-6141Dizzdd outpatient new 45 minutesBengabriela Ayers DO Work Phone: N[facility] OtolaryngologyComment on above:Thyroid noduleStart: 04-24-2025 End: 95-80-4049uecckgtdhiFZSTOJYI W MURJUAN ALBERTOKNot AvailableStart: 04-24-2025 End: 23-60-5440Uyvhyx flowsheetBemahadmin Padma Murcristiano DO Work Phone: [facility] OtolaryngologyStart: 04-24-2025 End: 73-52-6047Gyukhe flowsheetBelui Ayers DO Work Phone: [facility] OtolaryngologyStart: 03-29-2025 ambulatoryNON [facility] Work Phone: Start: 75-46-3506Mtx-patient / Non-visitOnelia BAILEY-[facility] Work Phone: Start: 03-28-2025 End: 96-86-9974Hiflkangs to same day surgery Nerissa BAILEY- Ultrasound [facility] Work Phone: Start: 03-28-2025 End: 98-18-4335fbbwjnaegcJPDBrecksville [facility] Work Phone: Start: 03-23-2025 End: 74-70-4056Aiokvoy encounter procedureTiff Caba MD-CT Scan [facility] Work Phone: Start: 03-23-2025 End: 78-97-9940xvbsdnkfzwNWCBrecksville VA [facility] Work Phone: Start: 03-08-2025 End: 74-78-6819rarwcxgrrbQvvwc M. LueFacility:EU BellevueStart: 03-08-2025 End: 94-54-2414Mzvkgsp encounter procedureTiff Boo [facility] start: 02-22-2025 End: 43-52-7025Tkcfhr flowsheetOnelia Simon ORACLE DEVELOPER Work Phone: [facility] CWM FMStart: 02-22-2025 End: 59-17-5621Utcrnf flowsheetLisa Aichjuaquin ORACLE DEVELOPER Work Phone: NOYT CWM FMStart: 02-22-2025 End: 98-32-3843djpiliaxgrITTP RADHAZNot AvailableStart: 02-22-2025 End: 74-22-4601Hlfrlf outpatient visit 25 minutesOnelia Simon ORACLE DEVELOPER Work Phone: [facility] CWM FMComment on above:Generalized abdominal pain (Primary Dx); Primary hypertension ; Class 3 severe obesity due to excess calories without serious comorbidity with body mass index (BMI) of 50.0 to 59.9 in adult ([facility])Start: 02-02-2025 End: 81-83-4225Wjscdd OnlyOnelia Simon ORACLE DEVELOPER Work Phone: NOJM CWM FMComment on above:Thyroid nodule (Primary Dx)Start: 01-31-2025 End: 81-21-5776CyyrguTjmb Aichholz ORACLE DEVELOPER Work Phone: [facility] CWM FMComment on above:Type 2 diabetes mellitus without complication, without long-term current use of insulin (HCC); Type 2 diabetes mellitus without complications (HCC)Adrenal mass, left (HCC) (Primary Dx)Start: 01-30-2025 End: 21-31-4447DyyyjgNqeo Naderer MD Work Phone: [facility] CWM FMComment on above:Type 2 diabetes mellitus without complications (HCC)Start: 01-23-2025 End: 87-88-8372XxrdzqDiiw Aichholalaina ORACLE DEVELOPER Work Phone: NOHK CWM FMComment on above:Type 2 diabetes mellitus without complication, without long-term current use of insulin (HCC)Start: 01-20-2025 End: 82-85-7249Otmetsleq Result EncounterLisa Aichholz ORACLE DEVELOPER Work Phone: noms External Department UnsolicitedStart: 01-20-2025 End: 08-58-8631Gnsladpkb Result EncounterLisa Aichholz ORACLE DEVELOPER Work Phone: noms External Department UnsolicitedStart: 01-17-2025 End: 06-83-5820Myhoglmuy Result EncounterLisa Aichholz ORACLE DEVELOPER Work Phone: noms External Department UnsolicitedStart: 01-17-2025 End: 63-87-5236Zwyjejouc Result EncounterLisa Aichholz ORACLE DEVELOPER Work Phone: noms External Department UnsolicitedStart: 01-17-2025 End: 75-50-6607Kwymmi OnlyLisa Aichholz ORACLE DEVELOPER Work Phone: noms CWM FMComment on above:Thyroid nodule (Primary Dx); Adrenal nodule (HCC)Start: 01-11-2025 End: 27-74-7626rfiynjyuqhTKVG AICHHOLZNot AvailableStart: 01-11-2025 End: 96-17-0874Ieyfzb flowsheetLisa Aichholz ORACLE DEVELOPER Work Phone: noms CWM FMStart: 01-11-2025 End: 34-98-0926Afxtay flowsheetLisa Aichholz [employer] DEVELOPER Work Phone: [facility] FMStart: 01-11-2025 End: [id number] encounter procedureLisa Aichholz [employer] DEVELOPER Work Phone: noms HealthcareComment on above:Medicare annual wellness visit, subsequent (Primary Dx); JEFF (obstructive sleep apnea); Primary hypertension ; Class 3 severe obesity due to excess calories without serious comorbidity with body mass index (BMI) of 50.0 to 59.9 in adult ([facility]); Type 2 diabetes mellitus without complication, without long-term current use of insulin ([facility]); IQBAL (dyspnea on exertion); Dyspnea on exertionStart: 01-05-2025 End: 40-59-4683UsuismMvwl Aichholz ORACLE DEVELOPER Work Phone: noms CWM FMComment on above:Vitamin D deficiency (Primary Dx); HypercalcemiaStart: 01-04-2025 End: 85-71-1206Xwxnqavjs Result EncounterLisa Austinholz ORACLE DEVELOPER Work Phone: noms External Department UnsolicitedStart: 01-04-2025 End: 19-44-5806Rcwmnyygd Result EncounterLisa Aichholz ORACLE DEVELOPER Work Phone: noms External Department UnsolicitedStart: 12-27-2024 End: 63-48-0034Jecgguoax Result EncounterLisa Aichholz ORACLE DEVELOPER Work Phone: noms External Department UnsolicitedStart: 12-27-2024 End: 69-66-3843Gxcrmfldq Result EncounterLisa Aichholz ORACLE DEVELOPER Work Phone: noms External Department UnsolicitedStart: 12-14-2024 End: 59-27-2980Okiptz flowsheetLisa Aichholz ORACLE DEVELOPER Work Phone: noms CWM FMStart: 12-14-2024 End: 97-64-7149Mlcaog flowsheetLisa Aichholz ORACLE DEVELOPER Work Phone: noms CWM FMStart: 12-14-2024 End: 06-27-3329Cpafua outpatient visit 25 minutesLisa Luishholz ORACLE DEVELOPER Work Phone: noms CWM FMComment on above:Dyspnea on exertion (Primary Dx); JEFF (obstructive sleep apnea); Primary hypertension (CMS/HCC); Class 3 severe obesity due to excess calories without serious comorbidity with body mass index (BMI) of 50.0 to 59.9 in adult; Type 2 diabetes mellitus without complication, without long-term current use of insulin; 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); Moderate episode of recurrent major depressive disorder (CMS/HCC); Bilateral lower extremity edemaStart: 12-14-2024 End: 44-50-3864qjeuyobyvjDECD LUISHHOLZNot AvailableStart: 10-31-2024 End: 39-73-5293OdofncMcgq Naderer MD Work Phone: noms CWM FMComment on above:Lumbar spondylosis (Primary Dx); Type 2 diabetes mellitus without complication, without long-term current use of insulin; Essential (primary) hypertension (CMS/HCC); Other specified anxiety disorders; 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); H/O seasonal allergies; Type 2 diabetes mellitus without complications; Hyperlipidemia, unspecified (CMS/HCC)Start: 09-13-2024 End: 31-55-4893Ilkadg outpatient visit 15 minutesSamantha Malik ORACLE DEVELOPER Work Phone: noms CWM FMComment on above:Moderate episode of recurrent major depressive disorder (CMS/HCC) (Primary Dx); Type 2 diabetes mellitus without complication, without long-term current use of insulin (CMS/HCC); Primary hypertension (CMS/HCC); Other hyperlipidemia (CMS/HCC); 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); Diabetes mellitus due to underlying condition with diabetic polyneuropathy (CMS/HCC)Start: 09-13-2024 End: 87-83-3481ofajqzvkxnLSEGBSVT FITZPATRICKNot AvailableStart: 09-13-2024 End: 63-89-8866Ctbrwd flowsAndrew Malik ORACLE DEVELOPER Work Phone: NOMS CWM FMStart: 09-13-2024 End: 92-49-7206Vrgmie flowsheetSamantha Malik ORACLE DEVELOPER Work Phone: NOMS CWM FMStart: 08-18-2024 End: 21-38-3804Ademgt flowsShikha Jiang DPM Work Phone: NOMS CI PODIATRYStart: 08-18-2024 End: 38-30-5033Zwxtmb flowsheetEmmanuel Jiang DPM Work Phone: NOMS CI PODIATRYStart: 08-18-2024 End: 17-17-0504Nuhkren encounter procedureNicholas A Brown DPM Work Phone: noms CI PODIATRYComment on above:Type 2 diabetes mellitus without complication, without long-term current use of insulin (CMS/HCC) (Primary Dx); Pain due to onychomycosis of toenails of both feet; Hallux rigidus of left foot; Hallux rigidus of right foot; Venous insufficiencyStart: 08-18-2024 End: 94-20-6931dfylvihgghMPKQZWRD A BROWNNot AvailableStart: 08-01-2024 End: 82-47-0478PtvnyiSzsh Naderer MD Work Phone: noms CWM FMComment on above:Type 2 diabetes mellitus without complication, without long-term current use of insulin (CMS/HCC)Start: 07-25-2024 End: 35-27-2848QlcmfvPnracfpiKevan Malik NP Work Phone: noms CWM FMComment on above:Hyperlipidemia, unspecified (CMS/HCC); Essential (primary) hypertension (CMS/HCC)Start: 07-21-2024 End: 25-92-3805Gourucbhm encounterEmmanuel Jiang DPM Work Phone: noms CI PODIATRYStart: 07-06-2024 End: 01-20-2532Akotvl flowsheetBayley Malicki LPCNOMS CI BHStart: 07-06-2024 End: 09-48-9638Odasdl flowsheetBayley Malicki LPCNOMS CI BHStart: 07-06-2024 End: 54-42-1661gypmhugsbgRCWBQM MALICKINot AvailableStart: 06-16-2024 End: 56-28-4891Izzyyp outpatient visit 15 minutesBrnilton Malik NP Work Phone: noms CWM FMComment on above: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) (Primary Dx); Primary hypertension (CMS/HCC); Type 2 diabetes mellitus without complication, without long-term current use of insulin (CMS/HCC); Moderate episode of recurrent major depressive disorder (CMS/HCC); Class 3 severe obesity due to excess calories without serious comorbidity with body mass index (BMI) of 50.0 to 59.9 in adult ([facility]/HCC)Start: 06-16-2024 End: 12-60-3324wloyvqgoaaBCXJLARM FITZPATRICKNot AvailableStart: 06-16-2024 End: 31-32-9951Zxphpv flowsheetBrittany Malik ORACLE DEVELOPER Work Phone: noms CWM FMStart: 06-16-2024 End: 67-08-8718Twlmvw flowsheetBrittany Malik ORACLE DEVELOPER Work Phone: noms CWM FMStart: 05-11-2024 End: 72-25-0213NverrqGcmhjgxp Malik ORACLE DEVELOPER Work Phone: noms CWM FMComment on above:Other specified anxiety disordersStart: 98-10-9745Gec-patient / [facility]An[facility] Work Phone: Start: 04-28-2024 End: 58-16-3089Zrlkjzjmr to same day surgery [facility] Work Phone: Start: 04-28-2024 End: 19-96-2638hlvlzaqilrWIE STAFFMansfield Hospital Ctr Work Phone: Start: 04-14-2024 End: 28-03-1954Skuwfp outpatient new 30 David Jiang DPM Work Phone: noms CI PODIATRYComment on above:Hallux rigidus of left foot (Primary Dx); Type 2 diabetes mellitus without complication, without long-term current use of insulin ([facility]); Hallux rigidus of right foot; Diabetes mellitus due to underlying condition with diabetic polyneuropathy, unspecified whether nursing home insulin use ([facility]); Onychomycosis; Toe pain, bilateral; Venous insufficiencyStart: 04-14-2024 End: 27-85-3521Uvsyfo Bob THOMASM Work Phone: noms CI PODIATRYStart: 04-14-2024 End: 83-92-9547Ckhdao flowsShikha Hilary Edmundo DPM Work Phone: noms CI PODIATRYStart: 03-24-2024 End: 03-88-1416Rghvtd outpatient visit 25 minutesSamantha Malik ORACLE DEVELOPER Work Phone: NOSB CWM FMComment on above:JEFF (obstructive sleep apnea) (Primary Dx); Primary hypertension (CMS/HCC); Class 3 severe obesity due to excess calories without serious comorbidity with body mass index (BMI) of 50.0 to 59.9 in adult (CMS/HCC); Type 2 diabetes mellitus without complication, without long-term current use of insulin (CMS/HCC); Other hyperlipidemia (CMS/HCC); Screening for colon cancer; Screening for prostate cancerStart: 03-24-2024 End: 54-09-5512Axtgqv flowsheetSamantha Shermantrick ORACLE DEVELOPER Work Phone: NOMS CWM FMStart: 03-24-2024 End: 77-74-1628Uksauk flowsheetBrnilton Malik ORACLE DEVELOPER Work Phone: NOKX CWM FMStart: 03-24-2024 End: 28-31-8462JpftloSfosocnz Malik ORACLE DEVELOPER Work Phone: NOMS CWM FMComment on above:Type 2 diabetes mellitus without complication, without long-term current use of insulin (CMS/HCC)Start: 10-08-2023 End: 40-30-5502Zfxpmvzkg Result EncounterSchristin Ram MD Work Phone: noms External Department UnsolicitedStart: 10-08-2023 End: 65-54-7581Wxqqjiytb Result EncounterSchristin Ram MD Work Phone: noms External Department UnsolicitedStart: 09-07-2023 Orders Padmini Ram MD Work Phone: noms CWM IMComment on above:H/O seasonal allergies (Primary Dx)Start: 2023 End: 75-96-3533Fwoqbglfp Result EncounterSchristin Ram MD Work Phone: noms External Department UnsolicitedStart: 2023 End: 19-50-1947Bhchgjpsm Result EncounterSchristin Ram MD Work Phone: noms External Department UnsolicitedStart: 08-27-2023 End: 88-93-2872Uupkwi outpatient visit 25 minutesShaikh Leanna WYNNE Work Phone: noms CWM IMComment on above:IQBAL (dyspnea on exertion) (Primary Dx); JEFF (obstructive sleep apnea); Primary hypertension (CMS/HCC); Type 2 diabetes mellitus without complication, without long-term current use of insulin (CMS/HCC)Start: 22-39-3753Ctrduh Jaylen Ram MD Work Phone: noms CWM IMStart: 99-26-2631Kgfoxzjulia Ram MD Work Phone: noms CWM IMStart: 03-09-2023 End: 18-39-8250jtqmpdagsaUggses Bailey Other [facility] [place] Other Start: 97-22-3447Abqcik outpatient visit 15 minutes [facility] ClydeStart: 10-08-2022 End: 57-45-0577wkiioeiwgpSUWQKI H FAWWADFacility:E9Zkwkr: 86-81-1129kikjiohgpj SHAIKH Shadi FAWWADFacility:K6Nayko: 07-12-2021(URG) Urgent Care VisitPanancy Mitchell [facility] ClydeStart: 07-12-2021 End: 04-93-9069wkyizqotbmRbivjh Dymond Other [employer] [employer] [place] Other Procedures DateProcedureProcedure DetailPerforming ClinicianStart: 63-91-3820GTQNRZG POCT GLUCOMETERSBenjamin W Murcek DO Work Phone: start: 14-09-0152Flkcndezv of thyroid glandStart: 34-37-7642YKSEVKN POCT GLUCOMETERSBenjamin W Murcek DO Work Phone: start: 02-79-5310Fqdlh of parathormoneBenjamin W Murcek DO Work Phone: start: 47-41-1721Dzfdnxci blood count with white cell differential, automatedBenjamin W Murjuan albertok DO Work Phone: start: 84-43-6102Kfgcmqgzgmlsmyk measurementComment on above:This test was developed and its performance characteristicsdetermined by [facility]. It has not been cleared orapproved by the Food and Drug Administration. Start: 05-58-4776TeirdmijqdXdmyj: 82-84-6545EZ of abdomen with contrastStart: 57-84-8826QF ABDOMEN WO/W CONLisa Aichholz ORACLE DEVELOPER Work Phone: Start: 90-23-5651Lt soft tissue head & neck real time imge docmLisa Aichholz ORACLE DEVELOPER Work Phone: Start: 02-06-5407HD CHEST W CONTRASTLisa Aichholz ORACLE DEVELOPER Work Phone: Start: 17-60-5849GV PULMONARY FUNCTION TESTLisa Aichholz ORACLE DEVELOPER Work Phone: Start: 33-42-9532HFP HEMOGLOBINLisa Aichholz ORACLE DEVELOPER Work Phone: Start: 24-02-1118DT ECHO DOPPLER COMPLETELisa Aichholz ORACLE DEVELOPER Work Phone: Start: 13-83-9598ZQE VITAMIN D 25 OHLisa Aichholz ORACLE DEVELOPER Work Phone: Start: 33-17-0746PFF BASIC METABOLIC PANELLisa Aichholz ORACLE DEVELOPER Work Phone: Start: 80-44-2103Xapwfgihza glycosylated i1vUsbhsa Alfred GAN Work Phone: Start: 07-06-2024 End: 70-25-8924Gzkthdqwqer diagnostic evaluationModerate episode of recurrent major depressive disorder (CMS/HCC)Faisal Cr LPCComment on above:Moderate episode of recurrent major depressive disorder (CMS/HCC)Start: 05-05-2024 ColonoscopyBrnilton Malik NP Work Phone: Start: 10-75-0797Sxqlgjbkx colonoscopyStart: 27-13-0113RO ALEJANDRO PERF SPECT REST Lindy Ram MD Work Phone: Start: 18-34-3464YQQ MaximLina Ram MD Work Phone: Start: 97-32-1007AgndvglluifJohltj Fawwad MD Work Phone: Plan of Treatment DateCare ActivityDetailAuthorStart: 55-66-1937Rytrulfga for malignant neoplasm of colonNOMS HealthcareStart: 52-78-9877Qvwfujuyl for malignant neoplasm of colonNOMS HealthcareStart: 01-17-2026 End: 97-15-4731Fqrkxen encounter /24/2026 5:00 PM EDT Office Visit [facility] [address] [place] [address] Onelia Simon NP [address] [place] [address] NOMS CW FMStart: 06-18-2026Medicare Annual Wellness (AWV) Medicare Annual Wellness (AWV)NOMS HealthcareStart: 69-77-2299Rpulronn screening Diabetes: Retinopathy ScreeningNOMS HealthcareStart: 06-12-2025 End: 68-52-1144Uibeksw encounter bogtnilmq76/17/2025 2:00 PM EST [facility] [address], [id number] Juan Ayers, DO [address] [place] [address] [facility] OtolaryngologyStart: 67-30-1348LcjtkxyalKindred Hospital Daytontart: 58-70-7705PbvsvatqkKindred Hospital Daytontart: 05-15-2025 End: 47-26-2813Epgdrxt encounter procedureNOMS [facility] OtolaryngologyComment on above:ArrivedStart: 04-24-2025 End: 98-99-8201Yqoqhvw encounter qaopmopoi27/29/2025 3:00 PM EDT Office Visit [facility] [address], [id number] Juan Ayers, DO [address] [place] [address] ArrivedNOMS [facility] Comment on above:ArrivedStart: 04-24-2025 End: 22-33-7180XI Neck W contrast IVCT soft tissue neck w IV contrast Imaging Routine Thyroid nodule Expected: 04/24/2025, Expires: 04/24/2026[facility] Work Phone: comment on above:Expected: 04/24/2025, Expires: 04/24/2026Start: 83-98-6866Ijphtqp referralVan Wert County Hospital Work Phone: Start: 98-46-1951EsvlpmjghBethesda North Hospital Start: 98-16-8234Zjzyltnghsinoy, fractionation measurement, plasmaKindred Hospital Daytontart: 09-55-4787FckwtejgeKindred Hospital Daytontart: 58-97-4922VnmdkcnzsqBtkoequshKindred Hospital Daytontart: 54-54-4749LBMZZ-19 Vaccine ( season)COVID-19 Vaccine ( season)[facility] Start: 46-65-2629Kuizznzfi vaccinationInfluenza Vaccine (#1)[facility] Start: 73-70-1760Okdvcjkhww A1c measurementDiabetes: Hemoglobin O8HVNXO HealthcareStart: 03-14-2025 End: 29-23-2517Nlenqie encounter cypergvwl92/19/2025 2:00 PM EDT [facility] [address] [place] [address] Onelia Simon, ORACLE DEVELOPER [address] [place] [address] [facility] FMStart: 03-07-2025 End: 616455-wyycnlpakdbnuf D3 [Mass/volume] in Serum or PlasmaVitamin D 25 hydroxy Lab Routine Vitamin D deficiency Hypercalcemia Expected: 03/07/2025 (Approximate), Expires: 01/05/2026[facility] HealthcareComment on above:Expected: 03/07/2025 (Approximate), Expires: 01/05/2026Start: 03-07-2025 End: 49-19-1802Seihu metabolic 1998 panel - Serum or PlasmaBasic metabolic panel Lab Routine Vitamin D deficiency Hypercalcemia Expected: 03/07/2025 (Approxima te), Expires: 01/05/2026[facility] Healthcare Work Phone: Comment on above:Expected: 03/07/2025 (Approximate), Expires: 01/05/2026Start: 40-15-3854Tntkc screening for proteinDiabetes: Urine Protein ScreeningSALT LAKE BE[facility]AVIORAL [facility]ALTH [facility] HealthcareStart: 02-02-2025 End: 78-76-7641VL Guidance for fine needle aspiration of Thyroid glandUS guided thyroid biopsy Imaging Routine Thyroid nodule Expected: 02/02/2025 (Approximate), Expires: 02/02/2026[facility] Healthcare Work Phone: Comment on above:Expected: 02/02/2025 (Approximate), Expires: 02/02/2026Start: 01-25-2025 End: 73-57-8572Hqhuwiu encounter gcmaxgvbe97/02/2025 1:40 PM EDT Office Visit [facility] [address] [place] [address] Onelia Simon, ELVIA [address] [place] [address] NOMS CWM FMStart: 01-17-2025 End: 77-66-9939HE Abdomen WO and W contrast IVCT abdomen w and wo IV contrast Imaging Routine Adrenal nodule (HCC) Expected: 01/17/2025, Expires:01/17/2026 NOMS HealthcareComment on above:Expected: 01/17/2025, Expires: 01/17/2026Start: 01-17-2025 End: 25-57-3341TW Thyroid glandUS thyroid Imaging Routine Thyroid nodule Expected: 01/17/2025 (Approximate), Expires: 01/17/2026[facility] Work Phone: Comment on above:Expected: 01/17/2025 (Approximate), Expires: 01/17/2026Start: 01-11-2025 End: 53-23-3685Cuqglyw encounter npmnpyzer79/18/2025 2:20 PM EDT Office Visit [facility] [address] [place] [address] Onelia Simon, ELVIA [address] [place] [address] [facility] FMStart: 01-11-2025 End: 27-58-2437Fearumaojr [Mass/volume] in Serum or PlasmaCreatinine Lab Routine Primary hypertension Type 2 diabetes mellitus without complication, without l trae-term current use of insulin (HCC) IQBAL (dyspnea on exertion) Expected: 01/11/2025 (Approximate),Expires: 01/11/2026NOMS HealthcareComment on above: Expected: 01/11/2025 (Approximate), Expires: 01/11/2026Start: 01-11-2025 End: 61-60-8889BN Chest W contrast IVCT chest w IV contrast Imaging Routine Dyspnea on exertion Expected: 01/11/2025 (Approximate), Expires: 01/11/2026[facility] Healthcare Work Phone: Comment on above:Expected: 01/11/2025 (Approximate), Expires: 01/11/2026Start: 01-11-2025 End: 43-89-9632Zaaivgqyt function reportPulmonary Function Test Imaging Routine Dyspnea on exertion Expected: 01/11/2025 (Approximate), Expires: 01/11/2026NOCT HealthcareComment on above:Expected: 01/11/2025 (Approximate), Expires: 01/11/2026Start: 12-14-2024 End: 75-12-1263Fdych metabolic 1998 panel - Serum or PlasmaBasic metabolic panel Lab Routine Primary hypertension (CMS/HCC) Type 2 diabetes mellitus without co mplication, without long-term current use of insulin Expected: 12/14/2024 (Approximate), Expires: 12/14/2025[facility] Healthcare Work Phone: Comment on above:Expected: 12/14/2024 (Approximate), Expires: 12/14/2025Start: 12-14-2024 End: 29-11-6238Pcecjxxjqavjup 2D completeEchocardiogram 2D complete Echocardiography Routine JEFF (obstructive sleep apnea) Primary hypertension (CMS/HCC) Dyspnea on exertion Bilateral lower extremity edema Expected: 12/14/2024 (Approximate), Expires: 12/14/2026[facility] HealthcareComment on above: Expected: 12/14/2024 (Approximate), Expires: 12/14/2026Start: 12-14-2024 End: 48-10-1171FN Chest 2 ViewsXR chest 2 views Imaging Routine Dyspnea on exertion Bilateral lower extremity edema Expected: 12/14/2024 (Approximate), Expires: 12/14/2025[facility] HealthcareComment on above:Expected: 12/14/2024 (Approximate), Expires: 12/14/2025Start: 12-14-2024 End: 75-50-6662Uspembs encounter /21/2025 1:20 PM EDT Office Visit [facility] [address] [place] [address] Onelia Simon NP [address] [place] [address] JEFF (obstructive sleep apnea) (Primary Dx); Primary hypertension (CMS/HCC); Class 3 severe obesitydue to excess calories without serious comorbidity with body mass index (BMI) of 50.0 to 59.9 in adult; Type 2 diabetes mellitus without complication, without long-term current use of insulin NOMS CWM FMComment on above:JEFF (obstructive sleep apnea) (Primary Dx); Primary hypertension (CMS/HCC); Class 3 severe obesity due to excess calories without serious comorbidity with body mass index (BMI) of 50.0 to 59.9 in adult; Type 2 diabetes mellitus without complication, without long-term current use of insulinStart: 12-12-2024 End: 36-21-7631Iwrpops encounter droirhnfn31/19/2025 3:00 PM EDT [facility] [address] [place] [address] Samantha Malik NP [address] [place] [address] NOMS CWM FMStart: 10-27-2024 End: 04-06-5800Worqmer encounter ylowemsab22/03/2025 1:50 PM EDT Procedure Visit [facility] [address] [facility] [address] [place] [address] Emmanuel Jiang DPM [address] [facility] [address] [place] [address] NOMS CI PODIATRYStart: 60-58-7600Igtoyvbtzz A1c measurementDiabetes: Hemoglobin I6PAWPMFreeman Neosho HospitalStart: 09-13-2024 End: 71-77-7038Xbvtggq encounter procedureNOMS [facility] FMComment on above:Arrived Start: 08-18-2024 End: 93-91-8081Tvnvrzw encounter qibdqvqlz00/23/2025 1:40 PM EST Office Visit [facility] [address] [facility] [address] [place] [address] Emmanuel Jiang DPM [address] [address] Type 2 diabetes mellitus without complication, without long-term current use ofinsulin (CMS/[facility]) (Primary Dx); Pain due to onychomycosis of toenails of both feet; Hallux rigidus of left foot; Hallux rigidus of right foot; Venous insufficiencyNOMS CI PODIATRYComment on above:Type 2 diabetes mellitus without complication, without long-term current use of insulin (CMS/HCC) (Primary Dx); Pain due to onychomycosis of toenails of both feet; Hallux rigidus of left foot; Hallux rigidus of right foot; Venous insufficiencyStart: 08-11-2024 End: 12-86-5945Awrmsye encounter mvbzeewfi79/16/2025 4:10 PM EST Office Visit [facility] [address] [facility] [address] [place] [address] Emmanuel Jiang DPM [address] [address] NOMS CI PODIATRYStart: 07-25-2024 End: 65-92-2181Lzzpxf Work07/25/2024 1:30 PM EST Social Work [facility] [address] [facility] [address] [place] [address] Faisal Cr LPC NOMS CI BHStart: 07-21-2024 End: 92-99-3593Yfboiep encounter emwruahuw41/26/2024 9:50 AM EST Office Visit [facility] [address] [facility] [address] [place] [address] Emmanuel Jiang DPM [address] [address] NOMS CI PODIATRYStart: 07-06-2024 End: 57-62-5879Ikfrpo Work07/06/2024 10:30 AM EST Social Work [facility] [address] [place] [address] Faisal Cr LPC Moderate episode of recurrent major depressive disorder (CMS/HCC)[facility] Comment on above:Moderate episode of recurrent major depressive disorder (CMS/HCC)Start: 06-30-2024 End: 76-93-8053Mfjqouv encounter vsyxigbkd01/05/2024 3:40 PM EST Office Visit [facility] [address] [place] [address] Emmanuel Jiang DPM [address] [address] NOMS CI PODIATRYStart: 06-16-2024 End: 87-20-2953Mrubyoq encounter procedureNOMS CWM FMComment on above:Arrived Start: 57-41-5428Hxnxv screening for proteinDiabetes: Urine Protein Screening NOMS HealthcareStart: 05-51-6277TqnygvthiKindred Hospital Daytontart: 04-14-2024 End: 59-01-8434Kmjbswb encounter rbogtlvfu58/19/2024 3:40 PM EDT Office Visit [facility] [address] [place] [address] Emmanuel Jiang DPM [address] [address] Type 2 diabetes mellitus without complication, without long-term current use ofinsulin (CMS/HCC)NOMS CI PODIATRYComment on above:Type 2 diabetes mellitus without complication, without long-term current use of insulin (CMS/HCC)Start: 27-22-1585Gtsnhjtup vaccinationInfluenza Vaccine (#1) [facility]S HealthcareStart: 03-24-2024 End: 15-51-3032Shyhwsw encounter /29/2024 3:00 PM EDT Office Visit [facility] [address] [place] [address] Samantha Malik NP [address] [place] [address] ArrivedNOMS CWM FMComment on above:ArrivedStart: 03-24-2024 End: 87-52-3803Dvrapgpu specific Ag [Mass/volume] in Serum or PlasmaPSA Lab Routine Screening for prostate cancer Expected: 03/24/2024 (Approximate), Expires: 03/24/2025[facility] Work Phone: Comment on above:Expected: 03/24/2024 (Approximate), Expires: 03/24/2025Start: 20-54-9838Chzbahfya vaccinationInfluenza Vaccine (#1) NOMS HealthcareComment on above:Postponed from 03/27/2023 (Patient Refused) Start: 08-27-2023 End: 41-92-2334Jjvwmhf encounter innqrcvdk87/01/2024 3:30 PM EST Office Visit [facility] [address] [place] [address] Shaikh Ram MD [address] [place] [address] [facility]rivedNOCIMARRON [facility] IMComment on above:ArrivedStart: 08-27-2023 End: 21-83-3877RFX 12 leadECG 12 lead ECG Routine IQBAL (dyspnea on exertion) Expected: 08/27/2023 (Approximate), Expires: 08/27/2024[facility] Work Phone: Comment on above:Expected: 08/27/2023 (Approximate), Expires: 08/27/2024Start: 48-56-1570Cglgdklbps A1c measurementDiabetes: Hemoglobin V4PWRIT HealthcareStart: 08-27-2023 End: 39-34-1259ZD Heart Perfusion W adenosine and W radionuclide IVSTRESS NUCLEAR MEDICINE [facility] Cardiac Nuclear Medicine Routine IQBAL (dyspnea on exertion) Expected: 08/27/2023 (Approximate), Expires: 08/27/2025[facility] Comment on above:Expected: 08/27/2023 (Approximate), Expires: 08/27/2025Start: 68-00-5229Ylwuixhkm vaccinationInfluenza Vaccine (#1)[facility] CenterStart: 98-57-2595Tpmif screening for proteinDiabetes: Urine Protein ScreeningMissouri Rehabilitation CenterStart: 72-24-2266Kxkfscjj screeningDiabetes: Retinopathy ScreeningSALT LAKE [facility] HealthcareStart: 18-13-0817Ajvkyebour A1c measurementDiabetes: Hemoglobin A1C [facility] CenterStart: 02-02-1957Medicare Annual Wellness (AWV)Medicare Annual Wellness (AWV)[facility] CenterStart: 92-63-7961Rcjftlbjj for malignant neoplasm of colonSSM Health Care metabolic 1998 panel - Serum or PlasmaBasic metabolic panel Lab Routine 05/19/2025 2:54 PM EDTMissouri Rehabilitation Center Work Phone: Metanephrine Free [Mass/volume] in Serum or Plasma [facility] North HospitalNormetanephrine measurementBethesda [facility]Patient EducationM[facility] Work Phone: [facility] referralM[facility]field Hospital Ctr Work Phone: Thyrotropin [Units/volume] in Serum or PlasmaMissouri Rehabilitation Center Immunizations Immunization DateImmunizationNotesCare EavdftuxAnldfjbj99-26-7104yrarpwmvk, seasonal, injectable, preservative freeFaisal Cr [facility] 28-81-9460bxgprtgtn virus vaccine, unspecified formulationBakari Marina MD Work Phone: [facility] Rehabilitation CenterMugkfvbkne96-89-7984fwqmyez toxoid, reduced diphtheria toxoid, and acellular pertussis vaccine, adsorbedBan Heaton Other [employer] [facility] Other [id number] and diphtheria toxoids, adsorbed, preservative free, for adult use (5 Lf of tetanus toxoid and 2 Lf of diphtheria toxoid)Shaikh Leanna WYNNE Work Phone: [phone] [place], [place] [address]Htopcgajok80-56-6696Sommcmhtqacz Conjugate PCV 20 Shaikh Leanna WYNNE Work Phone: [phone] [place], [place] [address]Bmhxxwhdyo78-12-5732Mefvneihc, High-dose Seasonal, Quadrivalent, Preservative Patricia Ram MD Work Phone: [phone] [place], [place] [address]Wlxyjndstx28-93-6885uwuqgfrrc virus vaccine, unspecified formulationSchristin Ram MD Work Phone: [phone] [place], [place] [address]Anroxnrwdh35-80-1373llqabwjon, injectable, quadrivalent, preservative Patricia Ram MD Work Phone: [phone] [place], [place] [address]Vwcbuvnhzd67-20-2134ifniuvrmu, injectable, quadrivalent, preservative Patricia Ram MD Work Phone: [phone] [place], [place] [address]Reapusaypy94-23-0616fubhoqbgz, injectable, quadrivalent, preservative Patricia Ram MD Work Phone: [phone] [place], [place] [address]Ssayguuacn79-23-6313uujygpixn, injectable, quadrivalent, preservative Patricia Ram MD Work Phone: [phone] [place], [place] [address]Dymcolblcz19-08-7382ctyzrbhye, injectable, quadrivalent, preservative Patricia Ram MD Work Phone: [phone] [place], [place] [address]Xruapjsqcf71-55-8136ftojpmgjl, injectable, quadrivalent, preservative Patricia Ram MD Work Phone: [phone] [place] [address] Payers DatePayer CategoryPayerPolicy [id number] [id number] 2025 [id number] [id number] 2021Medicare (Managed Care)[id number] 74-50-1140Enqjlmp6.2.840.462229.1.13.693.2.7.3.870138.16414-80-2491UwmglhwZ038M1 2.16.840.4.588771.70533866-85-3789Tnlx-ddj39[id number] 2.16.840.1.354230.3.57[id number] 2.16840.1.766781.3.57[id number] 2.16840.1.208503.3.57[id number] 2.16840.1.087284.3.57[id number] 2.16840.1.589021.3.579.2.035471-38-9453Ysyegwv48028973 2.16840.1.894441.3.579.2.4[id number] 2.16.840.1.359647.3.57[id number] 2.16.840.1.466766.3.579.[id number] 2.16840.1.301262.3.57[id number] 2.16.840.1.665907.3.57[id number] 2.16840.1.420632.3.57[id number] 2..0.1.623993.3.57[id number] 2..840.1.936280.3.579.2.[id number] 2..840.1.06[id number] 2.16.840.1.995942.3.579.2.531 [id number] 2.840.1.2[id number] 2..840.1.5[id number] 2.0.1.296378.3.579.2.531 Social History DateTypeDetailFacilityUnknown if ever smokedFanwood [facility] Other Start: 07-09-2023 End: 81-40-6364Tnu Assigned At [facility] Other Start: 07-09-2023 End: 84-44-8150Ibtioid smoking status NHISNever smoked tobaccoNOMS Healthcare Start: 07-09-2023 End: 60-77-3397Aawzkdu use and exposureSmokeless tobacco non-userNOMS Healthcare Start: 08-06-2023 End: 03-37-6025Gffgbfb intakeLifetime non-drinker (finding)[facility] HealthcareStart: 07-09-2023 End: 39-98-9476Ukzkhmi of Social functionNOMS HealthcareStart: 91-71-1505Nok Assigned At BirthNot on fileNOMS HealthcareStart: 04-28-2024 End: 40-14-3921Ykenlrk smoking status NHISEx-smoker (finding)[facility] Daytontart: 14-60-7631Rry Assigned At [facility]-Fairhillexual OrientationExec[facility] [place] sexMale (finding)[facility] Hospitaltart: 87-59-1526CkmYtbhBSKM HealthcareNEGATED: Highlighted rowStart: NINFHistory of tobacco usePassive smokerNOCT Healthcare Goals DatePatient GoalDesired Activity/State Functional Status WvraFnopygksgdYtwktbUxnrlywm53-25-5972Fywrchh Health Questionnaire 2 item (PHQ- 2) [Reported][facility] Clinical Notes 07-12-2021 to 05-15-2025 Note Date & OlawRkbxPzmkuyyr14-10-8888 History of Present illness Narrative* Juan Ayers, DO - 05/15/2025 2:30 PM EDT Allergies as of 05/15/2025 (No Known Allergies) Medical History[1] Current Medications[2] Surgical History[3] Social History Socioeconomic History Marital status: Spouse [...] on file Housing Stability: Not on file Subjective Patient ID: HPI Patient presents today following CT scan of the neck. I obtained this because I really could not evaluate his right thyroid nodule secondary to a very short neck and inability to extend it. The CT scan shows the right lobe to be about 5 cm and of good portion of it is replaced by a single solid nodule with significant calcifications both course and scattered. Left lobe appears to be okay. Review of Systems ROS The specialty specific review of systems is noncontributory except for that recorded in the intake questionnaire and /or described in the history of present illness. Objective ENT Physical Exam Physical Exam Constitutional: Appearance: Normal appearance. HENT: Head: Atraumatic. Ears: External ear shows no abnormality Bilateral ear canals are clear Tympanic membranes intact, no evidence of middle ear fluid or other pathology. Nose: External nose appears to be normal Nares patent. Septal deviation to the right No evidence of polyp, mass or pus bilaterally. Oral Cavity: No evidence of trismus Lips appear normal Dental decent Tongue of normal size and configuration, floor of mouth mucosa clear. Buccal mucosa shows no evidence of ulceration, mass or other abnormality Hard palate soft palate mucosa intact with no evidence of mass, ulceration or other abnormality Uvula of normal size and configuration Oropharynx: Tonsils atrophic Posterior pharyngeal wall with rugae Neck: No evidence of palpable abnormality Thyroid without evidence of thyromegaly or mass. No cervical lymphadenopathy present. Cardiovascular: Rate and Rhythm: Normal rate and regular rhythm. . Skin: General: Skin is warm and dry. Neurological: General: No focal deficit present. Mental Status: alert and oriented to person, place, and time. FIBEROPTIC NASOPHARYNGOLARYNGOSCOPY A diagnostic flexible fiberoptic laryngoscopy was performed. The flexible fiberoptic laryngoscope was placed into the nose and advanced to the level of the tip of the epiglottis. Examination of the larynx including both surfaces of the epiglottis false and true vocal folds, arytenoids and surrounding mucosal surfaces show no evidence of lesion, ulceration or mass. Normal bilateral true vocal foldmotion is present. Bilateral piriform sinuses and base of tongue appear without lesion Assessment/Plan Shannon was seen today for thyroid nodule. Diagnoses and all orders for this visit: Thyroid mass (Primary) Comments: Given the size of the mass, it is calcification, its location and the patient being a male I have recommended a right thyroid lobectomy to rule out malignancy The risks and benefits of thyroidectomy were discussed with the patient. These include but are not inclusive of perioperative , infection, major neurovascular injury, recurrent laryngeal nerve injury/dysfx, hoarsness, permanent vocal cord paralysis, permanent hyoparathyroidism, poor scaring, sw allowing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 without complication, without long-term current use of insulin (HCC) Type 2 diabetes mellitus with polyneuropathy (HCC) Type II or unspecified type diabetes mellitus with neurological manifestations, not stated as uncontrolled Moderate episode of recurrent major depressive disorder ([facility]) Bilateral lower extremity edema Vitamin D deficiency- Primary Hypercalcemia documented in this encounter [facility] HealthcareEvaluation note* Diagnosis Chronic pain of [...] (BMI) of 50.0 to 59.9 in adult ([facility]) Type 2 diabetes mellitus without complication, [...] (BMI) of 50.0 to 59.9 in adult ([facility]) Need for immunization against influenza Need [...] (BMI) of 50.0 to 59.9 in adult ([facility]) Type 2 diabetes mellitus without complication, without long-term current use of insulin (HCC) Type 2 diabetes mellitus with polyneuropathy (HCC) Type II or unspecified type diabetes mellitus with neurological manifestations, not stated as uncontrolled Moderate episode of recurrent major depressive disorder ([facility]) Bilateral lower extremity edema Medicare annual wellness visit, subsequent- Primary JEFF (obstructive sleep apnea) Obstructive sleep apnea (adult) (pediatric) Primary hypertension Unspecified essential hypertension Class 3 severe obesity due to excess calories without serious comorbidity with body mass index (BMI) of 50.0 to 59.9 in adult ([facility]) Type 2 diabetes mellitus without complication, without long-term current use of insulin (HCC) IQBAL (dyspnea on exertion) Other dyspnea and respiratory abnormality Dyspnea on exertion Other dyspnea and respiratory abnormality documented in this encounter [facility] HealthcareEvaluation note* Diagnosis Chronic pain of [...] (BMI) of 50.0 to 59.9 in adult ([facility]) Type 2 diabetes mellitus without complication, [...] Moderate episode of recurrent major depressive disorder ([facility]) Class 3 severe obesity due to excess calories without serious comorbidity with body mass index (BMI) of 50.0 to 59.9 in adult ([facility]) Need for immunization against influenza Need [...] (BMI) of 50.0 to 59.9 in adult ([facility]) Type 2 diabetes mellitus without complication, [...] (BMI) of 50.0 to 59.9 in adult ([facility]) Type 2 diabetes mellitus without complication, without long-term current use of insulin (HCC) IQBAL (dyspnea on exertion) Other dyspnea and respiratory abnormality Dyspnea on exertion Other dyspnea and respiratory abnormality Thyroid nodule- Primary Nontoxic uninodular goiter Adrenal nodule (HCC) Benign neoplasm of adrenal gland documented in this encounter [facility] HealthcareEvaluation note* Diagnosis Chronic pain of [...] (BMI) of 50.0 to 59.9 in adult ([facility]) Type 2 diabetes mellitus without complication, [...] (BMI) of 50.0 to 59.9 in adult ([facility]) Need for immunization against influenza Need [...] (BMI) of 50.0 to 59.9 in adult ([facility]) Type 2 diabetes mellitus without complication, without long-term current use of insulin (HCC) Type 2 diabetes mellitus with polyneuropathy (HCC) Type II or unspecified type diabetes mellitus with neurological manifestations, not stated as uncontrolled Moderate episode of recurrent major depressive disorder ([facility]) Bilateral lower extremity edema Medicare annual wellness visit, subsequent- Primary JEFF (obstructive sleep apnea) Obstructive sleep apnea (adult) (pediatric) Primary hypertension Unspecified essential hypertension Class 3 severe obesity due to excess calories without serious comorbidity with body mass index (BMI) of 50.0 to 59.9 in adult ([facility]) Type 2 diabetes mellitus without complication, without long-term current use of insulin (HCC) IQBAL (dyspnea on exertion) Other dyspnea and respiratory abnormality Dyspnea on exertion Other dyspnea and respiratory abnormality Type 2 diabetes mellitus without complication, without long-term current use of insulin (HCC) documented in this encounter [facility] HealthcareEvaluation note* Diagnosis Chronic pain of [...] (BMI) of 50.0 to 59.9 in adult ([facility]) Type 2 diabetes mellitus without complication, [...] (BMI) of 50.0 to 59.9 in adult ([facility]) Need for immunization against influenza Need [...] due to underlying condition with diabetic polyneuropathy ([facility]) Dyspnea on exertion- Primary Other dyspnea and respiratory abnormality JEFF (obstructive sleep apnea) Obstructive sleep apnea (adult) (pediatric) Primary hypertension Unspecified essential hypertension Class 3 severe obesity due to excess calories without serious comorbidity with body mass index (BMI) of 50.0 to 59.9 in adult ([facility]) Type 2 diabetes mellitus without complication, without long-term current use of insulin ([facility]) Type 2 diabetes mellitus with polyneuropathy [...] (BMI) of 50.0 to 59.9 in adult ([facility]) Type 2 diabetes mellitus without complication, without long-term current use of insulin (HCC) IQBAL (dyspnea on exertion) Other dyspnea and respiratory abnormality Dyspnea on exertion Other dyspnea and respiratory abnormality Type 2 diabetes mellitus without complications ([facility]) documented in this encounter [facility] HealthcareEvaluation note* Diagnosis Chronic pain of [...] (BMI) of 50.0 to 59.9 in adult ([facility]) Type 2 diabetes mellitus without complication, [...] (BMI) of 50.0 to 59.9 in adult ([facility]) Need for immunization against influenza Need [...] (BMI) of 50.0 to 59.9 in adult ([facility]) Type 2 diabetes mellitus without complication, without long-term current use of insulin (HCC) Type 2 diabetes mellitus with polyneuropathy (HCC) Type II or unspecified type diabetes mellitus with neurological manifestations, not stated as uncontrolled Moderate episode of recurrent major depressive disorder ([facility]) Bilateral lower extremity edema Medicare annual wellness [...] on exertion Other dyspnea and respiratory abnormality Type 2 diabetes mellitus without complication, without long-term current use of insulin (HCC) Type 2 diabetes mellitus without complications (HCC) documented in this encounter [facility] HealthcareEvaluation note* Diagnosis Chronic pain of [...] (BMI) of 50.0 to 59.9 in adult ([facility]) Type 2 diabetes mellitus without complication, [...] (BMI) of 50.0 to 59.9 in adult ([facility]) Need for immunization against influenza Need for [...] (BMI) of 50.0 to 59.9 in adult ([facility]) Type 2 diabetes mellitus without complication, without [...] (BMI) of 50.0 to 59.9 in adult ([facility]) Type 2 diabetes mellitus without complication, without long-term current use of insulin (HCC) IQBAL (dyspnea on exertion) Other dyspnea and respiratory abnormality Dyspnea on exertion Other dyspnea and respiratory abnormality Adrenal mass, left (HCC)- Primary Unspecified disorder of adrenal glands documented in this encounter [facility] HealthcareEvaluation note* Diagnosis Chronic pain of [...] (BMI) of 50.0 to 59.9 in adult ([facility]) Type 2 diabetes mellitus without complication, without [...] (BMI) of 50.0 to 59.9 in adult ([facility]) Need for immunization against influenza Need for [...] due to underlying condition with diabetic polyneuropathy ([facility]) Dyspnea on exertion- Primary Other dyspnea and respiratory abnormality JEFF (obstructive sleep apnea) Obstructive sleep apnea (adult) (pediatric) Primary hypertension Unspecified essential hypertension Class 3 severe obesity due to excess calories without serious comorbidity with body mass index (BMI) of 50.0 to 59.9 in adult ([facility]) Type 2 diabetes mellitus without complication, without long-term current use of insulin ([facility]) Type 2 diabetes mellitus with polyneuropathy [...] (BMI) of 50.0 to 59.9 in adult ([facility]) Type 2 diabetes mellitus without complication, without long-term current use of insulin ([facility]) IQBAL (dyspnea on exertion) Other dyspnea and respiratory abnormality Dyspnea on exertion Other dyspnea and respiratory abnormality Thyroid nodule- Primary Nontoxic uninodular goiter documented in this encounter [facility] HealthcareEvaluation note* Diagnosis Chronic pain of [...] (BMI) of 50.0 to 59.9 in adult ([facility]) Type 2 diabetes mellitus without complication, without [...] (BMI) of 50.0 to 59.9 in adult ([facility]) Need for immunization against influenza Need for [...] due to underlying condition with diabetic polyneuropathy ([facility]) Dyspnea on exertion- Primary Other dyspnea and respiratory abnormality JEFF (obstructive sleep apnea) Obstructive sleep apnea (adult) (pediatric) Primary hypertension Unspecified essential hypertension Class 3 severe obesity due to excess calories without serious comorbidity with body mass index (BMI) of 50.0 to 59.9 in adult ([facility]) Type 2 diabetes mellitus without complication, without long-term current use of insulin ([facility]) Type 2 diabetes mellitus with polyneuropathy [...] (BMI) of 50.0 to 59.9 in adult ([facility]) Type 2 diabetes mellitus without complication, without long-term current use of insulin ([facility]) IQBAL (dyspnea on exertion) Other dyspnea and respiratory abnormality Dyspnea on exertion Other dyspnea and respiratory abnormality Generalized abdominal pain- Primary Abdominal pain, generalized Primary hypertension Unspecified essential hypertension Class 3 severe obesity due to excess calories without serious comorbidity with body mass index (BMI) of 50.0 to 59.9 in adult ([facility]) documented in this encounter [facility] HealthcareEvaluation note* [...] (BMI) of 50.0 to 59.9 in adult ([facility]) Type 2 diabetes mellitus without complication, [...] (BMI) of 50.0 to 59.9 in adult ([facility]) Need for immunization against influenza Need for [...] (BMI) of 50.0 to 59.9 in adult ([facility]) Type 2 diabetes mellitus without complication, [...] (BMI) of 50.0 to 59.9 in adult ([facility]) Type 2 diabetes mellitus without complication, without long-term current use of insulin (HCC) IQBAL (dyspnea on exertion) Other dyspnea and respiratory abnormality Dyspnea on exertion Other dyspnea and respiratory abnormality Generalized abdominal pain- Primary Abdominal pain, generalized Primary hypertension Unspecified essential hypertension Class 3 severe obesity due to excess calories without serious comorbidity with body mass index (BMI) of 50.0 to 59.9 in adult ([facility]) Thyroid nodule Nontoxic uninodular goiter documented in this encounter [facility] HealthcareEvaluation note* Diagnosis Chronic pain of [...] (BMI) of 50.0 to 59.9 in adult ([facility]) Type 2 diabetes mellitus without complication, without [...] (BMI) of 50.0 to 59.9 in adult ([facility]) Need for immunization against influenza Need for [...] due to underlying condition with diabetic polyneuropathy ([facility]) Dyspnea on exertion- Primary Other dyspnea and respiratory abnormality JEFF (obstructive sleep apnea) Obstructive sleep apnea (adult) (pediatric) Primary hypertension Unspecified essential hypertension Class 3 severe obesity due to excess calories without serious comorbidity with body mass index (BMI) of 50.0 to 59.9 in adult ([facility]) Type 2 diabetes mellitus without complication, without long-term current use of insulin (HCC) Type 2 diabetes mellitus with polyneuropathy ([facility]) Type II or unspecified type diabetes mellitus with neurological manifestations, not stated as uncontrolled Moderate episode of recurrent major depressive disorder ([facility]) Bilateral lower extremity edema Medicare annual wellness visit, subsequent- Primary JEFF (obstructive sleep apnea) Obstructive sleep apnea (adult) (pediatric) Primary hypertension Unspecified essential hypertension Class 3 severe obesity due to excess calories without serious comorbidity with body mass index (BMI) of 50.0 to 59.9 in adult ([facility]) Type 2 diabetes mellitus without complication, without long-term current use of insulin [place] [facility]) IQBAL (dyspnea on exertion) Other dyspnea and respiratory abnormality Dyspnea on exertion Other dyspnea and respiratory abnormality Generalized abdominal pain- Primary Abdominal pain, generalized Primary hypertension Unspecified essential hypertension Class 3 severe obesity due to excess calories without serious comorbidity with body mass index (BMI) of 50.0 to 59.9 in adult ([facility]) Thyroid mass- Primary Unspecified disorder of thyroid documented in this encounter [facility] HealthcareHistory and physical note Author Van Trinh [facility] April 28, 2024 10:05amNote Date/TimeOct2023 10:[place] [address] Gastroenterology H&P Signed Patient: Shannon Bolaños JR MR #: [id number] : 1955 Acct:[id number] Age/Sex: 68 / M Adm Date: 4 Loc: Room: Type: [facility] Attending Dr: Van Trinh MD Copies to: NON STAFF Van Trinh MD~ Date of Service: 04/28/2024 HISTORY & PHYSICAL: Patient's history with special attention to the cardiovascular, pulmonary systems and the current problem was reviewed with the patient immediately prior to the procedure. Present medications and doses reviewed in the EMR. Allergies and pertinent laboratory tests were also re viewedat this time in the EMR. The physical [...] signed by Van Trinh MD> 04/28/24 1005 [facility] Work Phone: History general Narrative - Reported* Type Description Date Medical History Hypertension Medical HistoryhyperlipidemiaMedical Historytype II diabetes [place] Other Hospital course Narrative No data available for this section [facility] Discharge instructions Additional Instructions DISCHARGE INSTRUCTIONS [...] NOT operate machinery such as power tools, [employer] mowers, [employer], sewing machines, etc. for 24 hours. - [...] needed. -Follow up with PCP. -Office number [phone].[facility] Work Phone: Hospital Discharge instructionsAdditional Instructions DISCHARGE INSTRUCTIONS FOR THYROIDECTOMY ACTIVITY -No lifting or straining. -No strenuous activity for 2 weeks. -Sleep with head elevated on two pillows. -May shower or tomorrow. -You may shower and wash the incision with soap and water, but do not submerge the incision or allow prolonged exposure to water. Pat dry. -No driving for at least 5 days, or while taking prescription pain medicine. WOUND CARE/DRESSING -Be sure to keep your incision clean and dry. -There is a clear, glue-like adhesive on your incision. Do not peel or pick at this adhesive. It wall fall off on its own after a few days. -Call the office if incision area appears to have any sign of infection, such as increased swelling, redness, or purulent drainage. -Watch for bleeding, swelling, difficulty breathing, difficulty swallowing. MEDICATION -If any prescriptions have been given to you, be sure to take as directed. OTHER Any problems- call the office or return to the Emergency Room. If you are having excessive or persistent pain, swelling, fever (oral temp >101), yellow-green foul smelling drainage or bleeding from incision, excessive redness of incision, nausea, vomiting, or any other problems, you should first call your surgeon for advice. If you are unable to contact your surgeon, seek help from a hospital emergency room. FOLLOW UP -Call the office to follow up in one week.[facility] Work Phone: Progress note No data available for this section [facility] reason for referral (narrative)* Consultation (Routine) - Pending ReviewSpecialtyDiagnoses / ProceduresReferred By ContactReferred To ContactPodiatry Diagnoses Type 2 diabetes mellitus without complication, without long-term current use of insulin ([facility]) Procedures MS OFFICE/OUTPATIENT NEW HIGH MDM 60 MINUTES Samantha Malik NP [address] [place] [address] Emmanuel Jiang DPM [address] [facility] [address] [place] [address] Referral IDStatusReasonStart DateExpiration DateVisits RequestedVisits [id number] Review Specialty Services Required / * Consultation (Routine) - AuthorizedSpecialtyDiagnoses / ProceduresReferred By ContactReferred To ContactGastroenterology Diagnoses Screening for colon cancer Procedures MS OFFICE/OUTPATIENT NEW HIGH MDM 60 MINUTES Samantha Malik NP [address] [place] [address] Van Trinh MD [address] [address] Referral IDStatusReasonStart DateExpiration DateVisits RequestedVisits [id number] Specialty Services Required / [facility] HealthcareReason for referral (narrative)No reason for referral information availableMansfield Hospital Ctr Work Phone: Summary Purpose Family History No Family History Records Found Relationship Condition Age at Onset Recorded Date/T shamika father Malignant neoplasm of colon Unknown Diabetes mellitusUnknownDeceasedUnknownCerebrovascular accident (CVA)Unknown motherDiabetes mellitusUnknownfamily memberMalignant neoplasm of colonUnknown Relationship Condition Age at Onset Recorded Date/T shamika father Malignant neoplasm of colon Unknown Diabetes mellitusUnknownDeceasedUnknownCerebrovascular accident (CVA)Unknown Malignant neoplasm of lungUnknownmotherDiabetes mellitusUnknownPresence of cardiac pacemakerUnknownAtrial fibrillationUnknownHeart diseaseUnknownfamily memberMalignant neoplasm of colonUnknown Advance Directives No Advanced Directives Records Found Advance Directive Response Recorded Date/ Time Advance Directives No August 14, 2017 5:50pm Advance Directive Response Recorded Date/ Time Advance Directives No August 14, 2017 4:50pm Reason for Referral SpecialtyDiagnoses / ProceduresReferred By ContactReferred To Contact Diagnoses IQBAL (dyspnea on exertion) Procedures STRESS NUCLEAR MEDICINE Shaikh Solorio MD [address] [place] [place] [address] [facility] [employer] [address] [place] [address] Phone: [phone] Referral IDStatusReasonStart DateExpiration DateVisits RequestedVisits [id number] Review Chief Complaint and Reason for Visit Chief Complaint Screening for colon cancer Screening for colon cancer Chief Complaint Admit Date E27.9 March 23, 2025 11 :23am Chief Complaint Admit Date E27.9 March 23, 2025 11 :23am e04.1 March 28, 2025 8:46am Chief Complaint Admit Date E27.9 March 23, 2025 11 :23am e04.1 March 28, 2025 8:46am Referral Order March 29, 2025 3:37pm Reason for Visit Admit Date Right thyroid nodule March 28, 2025 8:46am Chief Complaint Admit Date E27.9 March 23, 2025 11 :23am e04.1 March 28, 2025 8:46am Referral Order March 29, 2025 3:37pm Right Thyroid Mass May 19, 2025 2 :16pm Chief Complaint Admit Date E27.9 March 23, 2025 11 :23am e04.1 March 28, 2025 8:46am Referral Order March 29, 2025 3:37pm Right Thyroid Mass May 19, 2025 2 :16pm Right Thyroid Mass June 02, 2025 6 :07am Additional Source Comments REASON FOR VISIT (unrecogniz ed section and content) ReasonCommentsTravel ConsultReasonOnset DateCommentsMed [id number] CommentsFollow-upReasonCommentsDepressionSpecialtyDiagnoses / ProceduresReferred By ContactReferred To ContactBehavioral Health Diagnoses Moderate episode of recurrent major depressive disorder (CMS/HCC) Procedures MS OFFICE/OUTPATIENT [facility] Samantha Malik NP [address] [place] [address] Phone: tel: fax: [facility] [address] [place] [address] Phone: tel: fax: Referral IDStatusReasonStart DateExpiration DateVisits RequestedVisits [id number] Specialty Services Required 11/21/78969/[id number]-grUmpockQyxighglFgw Change Request ReasonCommentsDM Foot CareDM NAIL/ BL CALLOUSSpecialtyDiagnoses / Procedures Referred By ContactReferred To ContactPodiatry Diagnoses Type 2 diabetes mellitus without complication, without long-term current use of insulin ([facility]) Procedures MS OFFICE/OUTPATIENT NEW HIGH MDM 60 MINUTES Samantha Malik, ELVIA [address] [place] [address] Emmanuel Jiang DPM [address] [place] [address] Referral IDStatusReasonStart DateExpiration DateVisits RequestedVisits [id number] Specialty Services Required /[id number] DateCommentsMed [id number] Date CommentsMed Jstxzr8508/01/2024ReasonCommentsDM Foot CareDm nail careReasonOnset DateCommentsMed Nkmasj5410/31/2024ReasonCommentsFollow-upDiabetesReasonComments Medicare Annual Wellness Visit InitialReasonOnset DateCommentsMed Refill 01/23/2025ReasonOnset DateCommentsMed Mpibdp1301/30/2025ReasonCommentsMed Refill ReasonCommentsDyspnea on exertionReasonCommentsThyroid NoduleNew Patient : thyroid noduleSpecialtyDiagnoses / ProceduresReferred By ContactReferred To ContactOtolaryngology Diagnoses Nontoxic single thyroid nodule Procedures MS UNLISTED [facility]ALUATION [facility] MANAGEMENT SERVICE Onelia Simon NP [address] [place] [address] Phone: tel: fax: Juan Ayers, DO [address] [place] [address] Phone: tel: fax: Referral IDStatusReasonStart DateExpiration DateVisits RequestedVisits [id number]/3/20253/[id number] NoduleCT results (unrecognized sect ion and content) No Status Records FoundNo Status Records FoundNo Status Records FoundNo Status Records Found INFORMATION SOURCE (unrecogn ized section and content) DATE CREATED AUTHOR 10/17/2022 [facility] DATE CREATED AUTHOR AUTHOR'S ORGANIZ ATION 03/10/2025 [facility] DATE CREATED AUTHOR AUTHOR'S ORGANIZ ATION 06/05/2025 [facility] DATE CREATED AUTHOR AUTHOR'S ORGANIZ ATION 06/08/2025 [facility] Care Teams (unrecognized sec tion and content) Team MemberRelationshipSpecialtyStart DateEnd Date Shaikh Ram MD [address] [place] [address] PCP - GeneralInternal Medicine08/26/23Team MemberRelationshipSpecialtyStart Date End Date Shaikh Ram MD [address] [place] [address] PCP - GeneralInternal Medicine08/26/23Team MemberRelationshipSpecialtyStart Date End Date Shaikh Ram MD [address] [place] [address] PCP - GeneralInternal Medicine08/26/23 Team Status: Active Member Role Status Dates NON STAFF Primary Care Provider Active Team Status: Inactive Member Role Status Dates NON STAFF Primary Care Provider Active Start: April 28, 2024 End: April 28Carolina Monteiro ProviderActiveStart: April 28, 2024 End: April 28, 2024 Team Status: Active Member Role Status Dates NON STAFF Primary Care Provider Active Start: April 28, 2024 Van J Ditty , MDAttending Provider, Other ProviderActiveStart: April 28, 2024 Team MemberRelationshipSpecialtyStart DateEnd Date Bakari Marina MD [address] [place] [address] [facility] - [facility]/29/24 Samantha Malik NP [address] [place] [address] [facility]02/29/24Team MemberRelationshipSpecialtyStart DateEnd Date Bakari Marina MD [address] [place] [address] [facility] - [facility]02/29/24 Samantha Malik NP [address] [place] [address] [facility]02/29/24Team MemberRelationshipSpecialtyStart DateEnd Date Bakari Marina MD [address] [place] [address] PCP - [facility] Medicine02/29/24 Samantha aMlik NP [address] [place] [address] [facility]02/29/24Team MemberRelationshipSpecialtyStart DateEnd Date Bakari Marina MD [address] [place] [address] PCP - Generalmi Medicine02/29/24 Samantha Malik, ELVIA [address] [place] [address] [facility]02/29/24Team MemberRelationshipSpecialtyStart DateEnd Date Bakari Marina MD [address] [place] [address] PCP - [facility]02/29/24 Samantha Malik NP [address] [place] [address] [facility]02/29/24Team MemberRelationshipSpecialtyStart DateEnd Date Bakari Marina MD [address] [place] [address] PCP - [facility]02/29/24 Samantha Malik NP [address] [place] [address] [facility]02/29/24Team MemberRelationshipSpecialtyStart DateEnd Date Bakari Marina MD [address] [place] [address] PCP - [facility]02/29/24 Samantha Malik NP [address] [place] [address] [facility]02/29/24Team MemberRelationshipSpecialtyStart DateEnd Date Bakari Marina MD [address] [place] [address] PCP - [facility]02/29/24 Samantha Malik, ELVIA [address] [place] [address] [facility]02/29/24Team MemberRelationshipSpecialtyStart DateEnd Date Bakari Marina MD [address] [place] [address] PCP - [facility]02/29/24 Samantha Malik, ELVIA [address] [place] [address] [facility]02/29/24Team MemberRelationshipSpecialtyStart DateEnd Date Bakari Marina MD [address] [place] [address] PCP - [facility]02/29/24 Samantha Malik, ELVIA [address] [place] [address] [facility]02/29/24Team MemberRelationshipSpecialtyStart DateEnd Date Bakari Marina MD [address] [place] [address] PCP - GeneralFami Medicine02/29/24 Samantha Malik, ELVIA [address] [place] [address] [facility]02/29/24Team MemberRelationshipSpecialtyStart DateEnd Date Bakari Marina MD [address] [place] [address] PCP - [facility]02/29/24 Samantha Malik NP [address] [place] [address] [facility]02/29/24Team MemberRelationshipSpecialtyStart DateEnd Date Bakari Marina MD [address] [place] [address] PCP - [facility]02/29/24 Samantha Malik NP [address] [place] [address] [facility]02/29/24Team MemberRelationshipSpecialtyStart DateEnd Date Bakari Marina MD [address] [place] [address] PCP - [facility]02/29/24 Samantha Malik NP [address] [place] [address] Nurse PractitionerFamily Medicine02/29/[address] [facility] Social WorkerBehavioral Health08/31/24Team MemberRelationshipSpecialtyStart Date End Date Bakari Marina MD [address] [place] [address] PCP - GeneralFamily Medicine02/29/24 Samantha Malik, ORACLE DEVELOPER [address] [place] [address] Nurse PractitionerFamily Medicine02/29/24 [address] [facility] Social WorkerBehavioral Health08/31/24Team MemberRelationshipSpecialtyStart Date End Date Bakari Marina MD [address] [place] [address] PCP - GeneralFamily Medicine02/29/24 Samantha Malik, ELVIA [address] [place] [address] Nurse PractitionerFamily Medicine02/29/24 [address]ais[address] [employer] Social WorkerBehavioral Health08/31/24Team MemberRelationshipSpecialtyStart Date End Date Bakari Marina MD [address] [place] [address] PCP - GeneralFamily Medicine02/29/24 Samantha Malik NP [address] [place] [address] Nurse PractitionerFamily Medicine02/29/24 [address]ais[address] LPC Social WorkerBehavioral Health08/31/24Team MemberRelationshipSpecialtyStart Date End Date Bakari Marina MD [address] [place] [address] PCP - GeneralFamily Medicine02/29/24 Samantha Malik NP [address] [place] [address] Nurse PractitionerFamily Medicine02/29/24 [address]ais[address] LPC Social WorkerBehavioral Health08/31/24Team MemberRelationshipSpecialtyStart Date End Date Bakari Marina MD [address] [place] [address] PCP - GeneralFamily Medicine02/29/24 Samantha Malik NP [address] [place] [address] Nurse Practitionermily Medicine02/29/24 [address]ais[address] LPC Social WorkerBehavioral Health08/31/24Team MemberRelationshipSpecialtyStart Date End Date Bakari Marina MD [address] [place] [address] PCP - GeneralFamily Medicine02/29/24 Samantha Malik NP [address] [place] [address] Nurse PractitionerFamily Medicine02/29/24 [address]ais[address] LPC Social WorkerBehavioral Health08/31/24Team MemberRelationshipSpecialtyStart Date End Date Bakari Marina MD [address] [place] [address] PCP - GeneralFamily Medicine02/29/24 Samantha Malik NP [address] [place] [address] Nurse Practitionermily Medicine02/29/24 Faisal [address] [facility] Social WorkerBehavioral Health08/31/24Team MemberRelationshipSpecialtyStart Date End Date Bakari Marina MD [address] [place] [address] PCP - GeneralFamily Medicine02/29/24 Samantha Malik, ELVIA [address] [place] [address] Nurse PractitionerA[facility]ally Medicine02/29/24 Fais[address] [facility] Social WorkerBehavioral Health08/31/24Team MemberRelationshipSpecialtyStart Date End Date Bakari Marina MD [address] [place] [address] PCP - Generalmily Medicine02/29/24 Samantha Malik, ELVIA [address] [place] [address] Nurse PractitionerA[facility] Family Hospitally Medicine02/29/24 [address]ais[address] [facility] Social WorkerBehavioral Health08/31/24Team MemberRelationshipSpecialtyStart Date End Date Bakari Marina MD [address] [place] [address] PCP - GeneralFamily Medicine02/29/24 Samantha Malik NP [address] [place] [address] Nurse PractitionerFamily Medicine02/29/[address] LPC [facility]er[facility]08/31/24Team MemberRelationshipSpecialtyStart Date End Date Bakari Marina MD [address] [place] [address] PCP - GeneralFamily Medicine02/29/24 Samantha Malik NP [address] [place] [address] Nurse Practitionermily Medicine02/29/24 [address]aisal [address] [facility] Social WorkerThomas [facility] Hospital08/31/24Team MemberRelationshipSpecialtyStart Date End Date Bakari Marina MD [address] [place] [address] PCP - GeneralFamily Medicine02/29/24 Samantha Malik NP [address] [place] [address] Nurse Practitionermily Medicine02/29/24 Faisal Cr [employer] Social WorkerThomas [facility] Hospital08/31/24Team MemberRelationshipSpecialtyStart Date End Date Bakari Marina MD [address] [place] [address] PCP - GeneralFamily Medicine02/29/24 Samantha Malik, ELVIA [address] [place] [address] Nurse PractitionerFamily Medicine02/29/24 [address] K[facility]E [facility]08/31/24Team MemberRelationshipSpecialtyStart Date End Date Bakari Marina MD [address] [place] [address] PCP - GeneralFamily Medicine02/29/24 Samantha Malik NP [address] [place] [address] Nurse Practitionermily Medicine02/29/24Team MemberRelationshipSpecialtyStart DateEnd Date Bakari Marina MD [address] [place] [address] PCP - GeneralFamily Medicine02/29/24 Samantha Malik NP [address] [place] [address] Nurse PractitionerFamily Medicine02/29/24Team MemberRelationshipSpecialtyStart DateEnd Date Bakari Marina MD [address] [place] [address] PCP - GeneralFamily Medicine02/29/24 Samantha Malik NP [address] [place] [address] Nurse Practitionermily Medicine02/29/24Team MemberRelationshipSpecialtyStart DateEnd Date Bakari Marina MD [address] [place] [address] PCP - [facility]02/29/24 Samantha Malik NP [address] [place] [address] [facility]02/29/24Team MemberRelationshipSpecialtyStart DateEnd Date Bakari Marina MD [address] [place] [address] PCP - [facility]02/29/24 Samantha Malik NP [address] [place] [address] [facility]02/29/24Team MemberRelationshipSpecialtyStart DateEnd Date Bakari Marina MD [address] [place] [address] PCP - [facility]02/29/24 Samantha Malik NP [address] [place] [address] [facility]02/29/24 Team Status: Inactive Member Role Status Dates NON STAFF Primary Care Provider Active Start: March 23, 2025 End: March 23, 2025Carolina Dumont ProviderActiveStart: March 23, 2025 End: March 23, 2025 Team Status: Inactive Member Role Status Dates NON STAFF Primary Care Provider Active Start: March 28, 2025 End: March 28, 2025Onelia AustinholzAttending ProviderActiveStart: March 28, 2025 End: March 28, 2025Tiff Boo MDOther ProviderActiveStart: March 28, 2025 End: March 28, 2025 Team Status: Active Member Role Status Dates NON STAFF Primary Care Provider Active Start: March 29, 2025 Onelia Solis ProviderActiveStart: March 29, 2025 Team MemberRelationshipSpecialtyStart DateEnd Date Bakari Marina MD PCP - GeneralFamily Medicine02/29/24 Samantha Malik NP Nurse Practitionermily Medicine02/29/24Team MemberRelationshipSpecialtyStart DateEnd Date Bakari Marina MD PCP - GeneralFamily Medicine02/29/24 Samantha Malik NP Nurse PractitionerA[facility] Hospitally Medicine02/29/24Team MemberRelationshipSpecialtyStart DateEnd Date Bakari Marina MD PCP - GeneralFamily Medicine02/29/24 Samantha Malik NP Nurse Practitionermily Medicine02/29/24Team MemberRelationshipSpecialtyStart DateEnd Date Bakari Marina MD PCP - GeneralFamily Medicine02/29/24 Samantha Malik NP [facility]02/29/24 Team Status: Active Member Role/Relationship Status Dates NON STAFF Primary Care Provider Active Team Status: Inactive Member Role/Relationship Status Dates NON STAFF Primary Care Provider Active Start: March 23, 2025 End: March 23, 2025Kathy M Lue , MDAttending ProviderActiveStart: March 23, 2025 End: March 23, 2025 Team Status: Inactive Member Role/Relationship Status Dates NON STAFF Primary Care Provider Active Start: March 28, 2025 End: March 28, 2025Onelia Simon , ORACLE DEVELOPER-CAttending ProviderActiveStart: March 28, 2025 End: March 28, 2025Tiff Boo MDOther ProviderActiveStart: March 28, 2025 End: March 28, 2025 Team Status: Active Member Role/Relationship Status Dates NON STAFF Primary Care Provider Active Start: March 29, 2025 Onelia Simon , ORACLE DEVELOPER-CAttending ProviderActiveStart: March 29, 2025 Team Status: Inactive Member Role/Relationship Status Dates NON STAFF Primary Care Provider Active Start: May 19, 2025 End: May 19enfatemehkristofer Ayers , Attending ProviderActiveStart: May 19, 2025 End: May 19, 2025Team MemberRelationshipSpecialtyStart DateEnd Date Shaikh Ram MD PCP - GeneralInternal Medicine Bakari Marina MD PCP - GeneralFamily Medicine02/29/24 Samantha Malik NP Nurse PractitionerFamily Medicine02/29/[address] LPC Social WorkerThomas Jefferson University HospitalTeam MemberRelationshipSpecialtyStart DateEnd Date Bakari Marina MD [address] [place] [address] PCP - GeneralFamily Medicine02/29/24 Samantha Malik NP Nurse Practitionermily Medicine02/29/24 Team Status: Inactive Member Role/Relationship Status Dates NON STAFF Primary Care Provider Active Start: June 02, 2025 End: June 02enfatemehkristofer Ayers , Attending ProviderActiveStart: June 02, 2025 End: June 02, 2025 Goals (unrecognized section and content) Goals may be documented in a n alternate section FOR RECORDS PERTAINING TO PATIENTS WHO ARE [...] BE BASED ON THE PRIMARY CLINICAL RECORDS. [facility] [employer] provides no warranty or guarantee of the accuracy or completeness of information in this document.
--- OUTSIDE RECORDS SUMMARY | 2025-06-30 12:43 | XMS_ITS | Clinical Summary ---
Author Organization [facility] Address [address] [place] [address] Care Team Providers Care Automatic Pilot Mechanic Name Role Phone Bakari Bhat MD Primary Care Provider [phone] Cathleen Malik NP Unavailable [phone] Allergies No known active allergies Medications MedicationSigDispense QuantityRefillsLast FilledStart DateEnd DateStatus latanoprost (Xalatan) 0.005 % ophthalmic solution Administer 1 drop into both eyes at iacidct36/05/2024Active aspirin 81 MG EC tablet Indications:Type 2 diabetes mellitus without complication, without long-term current use of insulin (HCC)Take 1 tablet (81 mg) by mouth in the morning. 90 tablet 5Active carvedilol (Coreg) 12.5 MG tablet Indications:Essential (primary) hypertensionTake 1 tablet (12.5 mg) by mouth every 12 (twelve) hours 180 tablet 5Active gabapentin (Neurontin) 100 MG capsule Indications:Type 2 diabetes mellitus with polyneuropathy (HCC)Take 1 capsule (100 mg) by mouth in the morning and 1 capsule (100 mg) before bedtime. 180 capsule 5Active lisinopril-hydroCHLOROthiazide 20-25 MG tablet Indications:Essential (primary) hypertensionTake 1 tablet by mouth Daily 90 tablet 5Active Multiple Vitamin (Multivitamin Adult) tablet Indications:Type 2 diabetes mellitus without complication, without long-term current use of insulin (HCC)Take 1 each by mouth Daily 90 tablet 5Active pravastatin (Pravachol) 40 MG tablet Indications:Hyperlipidemia, unspecifiedTake 1 tablet (40 mg) by mouth Daily 90 tablet 5Active Continuous Glucose Trailers [employer] Salesperson (FreeStyle Anamaria 3 [place]) device Indications:Type 2 diabetes mellitus without complication, without long-term current use of insulin (HCC)1 each continuously 1 each 5Active Continuous Glucose Sensor (FreeStyle Anamaria 3 Plus Sensor) [facility] Indications:Type 2 diabetes mellitus without complication, without long-term current use of insulin (HCC)1 each continuously 2 each 1105Active DULoxetine (Cymbalta) [address] capsule Indications:Moderate episode of recurrent major depressive disorder (HCC)Take 1 capsule (60 mg) by mouth Daily Do not crush or chew. 90 capsule 5Active methocarbamol (Robaxin) 750 MG tablet Take 750 mg by mouth every 8 (eight) hours5Active etodolac (Lodine) 300 MG capsule TAKE 1 CAPSULE BY MOUTH EVERY 8 HOURS NEEDED FOR PAIN5Active semaglutide (Ozempic, 1 MG/DOSE,) 4 MG/3ML solution pen-injector Indications:Type 2 diabetes mellitus without complication, without long-term current use of insulin ([facility])Inject 1 mg under the skin 1 (one) time per week 9 mL 5Active metFORMIN (Glucophage) 1000 MG tablet Indications:Type 2 diabetes mellitus without complications (HCC)Take 1 tablet (1,000 mg) by mouth in the morning and 1 tablet (1,000 mg) before bedtime. 180 tablet 5Active Active Problems ProblemNoted DateDiagnosed DateGeneralized abdominal pain02/22/2025 Assessment & Plan (02/22/2025 10:10 AM EDT): Sxs not better no significant results with mag citrate More distended Will send to [facility] ER for evaluation Adrenal mass, left01/31/2025Thyroid uggvyj3501/17/2025drenal bxqaeg1701/17/2025 Medicare annual wellness visit, gsfizsymnc92/18/2025 Assessment & Plan (01/11/2025 7:42 AM EDT): Reviewed Ht/Wt/BMI Recommend eye exam yearly Recommend dental exams twice a year Balance work/leisure activities Exercises is recommended most days of the week (appropriate as chronic conditions allow) Follow up yearly and prn Vitamin D tzibdjulds62/12/6902Fywbtupmtevnd15/04/2025Dyspnea on exertion 12/14/2024 Assessment & Plan (01/11/2025 3:33 PM EDT): See echo results Will order PFT and CT chest Assessment & Plan (12/14/2024 1:56 PM EDT): Check ECHO Bilateral lower extremity edema12/14/2024 Assessment & Plan (12/14/2024 1:57 PM EDT): Limit sodium Check echo Hallux rigidus of left foot04/27/20247549Izxxrpmksytsa32/02/2024Type 2 diabetes mellitus with spptifvvucacvw80/02/2024 Assessment & Plan (12/14/2024 1:45 PM EDT): [...] trial Gabapentin 300mg BID. Screening for prostate rjuimz7103/24/2024rimary yhxoakxvtemy16/01/2024 Assessment & Plan (02/22/2025 10:09 AM EDT): [...] or persistently elevated BP. Well controlled. Other btnrrladivrnpn29/01/2024 Assessment & Plan (12/14/2024 7:03 AM EDT): [...] pravastatin. Check lipid panel. JEFF (obstructive sleep apnea)08/27/2023 Assessment & Plan (01/11/2025 7:41 AM EDT): [...] without complication, without long-term current use of dmzfamt2308/27/2023 Assessment & Plan (01/11/2025 7:42 AM EDT): [...] asa, b joaquin, lisinopril/hydrochlorothiazide, statin A1c: 7.0% 5/21/25 Assessment & Plan (09/13/2024 4:06 PM EST): [...] and has poor insight. He also saw composing room machinist apprentice before to help manage his meals, improve his diet. Tolerating meds w/o adverse effects Switch from trulicity to ozempic due to insurance prefera[ence. Check labs Assessment & Plan (08/27/2023 5:23 PM EST): Last A1C 7.1 06/18. On metformin and trulicity. Non compliant with diet and has poor insight. He also saw composing room machinist apprentice before to help manage his meals, improve his diet. Tolerating meds w/o adverse effects C/w same. Other acute ojmnfgfwf97/14/2023Non-seasonal allergic garpmoji60/14/2023lass 3 severe obesity due to excess calories without serious comorbidity with body mass index (BMI) of 50.0 to 59.9 in adult07/09/2023 Assessment & Plan (02/22/2025 10:09 AM EDT): [...] and sugary drinks. Chronic pain of both knees06/22/2023 Assessment & Plan (12/23/2023 2:52 PM EDT): [...] loss. Will refer to Orthopedic. Right hip pain04/20/2019 Overview (08/27/2023): Added automatically from request for surgery [id number] Lumbar goxhpvssbdw11/13/2019Lumbosacral spondylosis without jvyedqvicu03/04/2019 Overview (08/27/2023): Added automatically from request for surgery [id number] Major depression Assessment & Plan (12/14/2024 1:56 [...] SI/HI. Referral sent to . Resolved Problems ProblemNoted DateDiagnosed DateResolved DateDOE (dyspnea on exertion)08/27/2023 01/11/2025 Assessment & Plan (08/27/2023 5:21 PM EST): [...] the probable explanation for exertional dyspnea. Encounters DateTypeDepartmentCare SxcgViqdmredenm33/17/2025 2:00 PM ESTOffice Visit [facility] [address] [place] [address] Juan Ayers, DO Status post partial thyroidectomy (Primary Dx)06/12/2025amboo flowsheet [facility] [address] [place] [address] Juan Ayers, DO 06/12/20258513Hcghfj60/07/2025 8:00 AM ESTProcedure Visit [facility] EXT DEP Juan Ayers, DO Thyroid mass (Primary Dx)06/02/2025External Result Encounter [facility] External Department Unsolicited Juan Ayers, DO 06/02/2025External Result Encounter [facility] External Department Unsolicited Juan Ayers, DO 05/19/2025External Result Encounter [facility] External Department Unsolicited Juan Ayers, DO 05/19/2025External Result Encounter [facility] External Department Unsolicited Juan Ayers, DO 05/19/2025External Result Encounter [facility] External Department Unsolicited Juan Ayers, DO 05/19/2025External Result Encounter [facility] External Department Unsolicited Juan Ayers, DO 05/15/2025 2:30 PM EDTOffice Visit [facility] [address] [place] [address] Juan Ayers, DO Thyroid mass (Primary Dx)05/15/2025amboo flowsheet [facility] [address] [place] [address] Juan Ayers, DO 05/15/20255399Dipvff78/10/2025 2:30 PM EDTAncillary Procedure [facility] [address] [place] [address] Thyroid ywyyhz2705/05/20258396Qeipvz84/29/2025 3:00 PM EDTOffice Visit [facility] [address] [place] [address] Juan Ayers, DO Thyroid aoemqv0004/24/2025amboo flowsheet [facility] [place] [facility] [address] [place] [address] Armen Juan Rouse, DO 04/24/2025Travelfrom Last 3 Months Immunizations ImmunizationAdministration DatesNext DueInfluenza, High-dose Seasonal, Quadrivalent, Preservative Free05/21/2022Influenza, injectable, quadrivalent, preservative free06/05/2021,04/25/2020,07/13/2019,06/07/2018,05/17/2017, 05/05/2017Influenza, seasonal, injectable, preservative free06/16/2024 Pneumococcal Conjugate PCV Td (adult), 5 Lf tetanus toxoid, preservative free, hgaonilf83/14/2023 Family History Medical HistoryRelationNameCommentsCancerFatherColon, LungDiabetesFather HypertensionFatherCancerFather's SisterColonDiabetesMotherHypertensionMother RelationNameStatusCommentsFatherDeceasedFather's SisterMotherAlive Social History Tobacco UseTypesPacks/DayYears UsedDateSmoking Tobacco: NeverPassive Smoke Exposure: NeverSmokeless Tobacco: Never Tobacco Cessation:Counseling Given: Not Answered Alcohol UseStandard Drinks/WeekCommentsNever0 (1 standard drink = 0.6 oz pure alcohol)PHQ-2AnswerDate RecordedPatient Health Questionnaire-2 Kleyz451 Sex and Gender InformationValueDate RecordedSex Assigned at BirthNot on file Legal QrgEdrc7710/08/2022 8:11 PM EDTGender IdentityNot on fileSexual Orientation Not on file Last Filed Vital Signs Vital SignReadingTime TakenCommentsBlood Wfqmkctu009/9807 9:47 AM EDT Fkhnr972602/22/2025 9:47 AM QBBEqpibezmwts49.9 ??C (98.5 ??F)02/22/2025 9:47 AM EDTRespiratory Byws662002/22/2025 9:47 AM EDTOxygen Dlgvvwjrpk49%02/22/2025 9:47 AM EDTInhaled Oxygen Concentration--Budpof148 kg (320 lb)06/12/2025 2:07 PM EST Mbvkoy146.6 cm (5' 6 )06/12/2025 2:07 PM ESTBody Mass Index51.6506/12/2025 2:07 PM EST Plan of Treatment DateTypeDepartmentCare Team (Latest Contact Info)Bzkjmjnkyiw59/17/2025 2:15 PM ESTOffice Visit [facility] [address] [place] [address] Juan Ayers, [address] [place] [address] Health MaintenanceDue DateLast DoneCommentsCT Alnfvrwyvrsj30/02/1957FIT-DNA 1955FIT1955FOBT1956Woumwbfxrhmuf87/02/1957COVID-19 Vaccine ( season)/04/2021, 11/15/2020, 10/23/2020Influenza Vaccine (#1)511/, 05/21/2022, 06/05/2021, Additional history exists Ciijgbrvxtx12/10/203410/olorectal Cancer Fkzffpcqx43/10/2034Pneumococcal Vaccine: 65+ StwqoOycqlfxxu89/27/2022 Procedures Procedure NamePriorityDate/TimeAssociated DiagnosisCommentsGLUCOSE POCT KREJDLGFXZZYgiqyji27/07/2025 10:21 AM EST GLUCOSE POCT DLDKIWEPBUPXpbyryv73/07/2025 6:51 AM EST VITAMIN D 25 HYDROXY XSXJLVgvogfd28/24/2025 2:54 PM EDT T3, MLMHFIgevjxu05/24/2025 2:54 PM EDT SIXLpbelhu52/24/2025 2:54 PM EDT T4 (THYROXINE), WVVENGfwnjit80/24/2025 2:54 PM EDT BASIC METABOLIC SJCCPFwoawjs04/24/2025 2:54 PM EDT PTH, INTACT WITHOUT YVZETIJCuwdloh17/24/2025 2:54 PM EDT CBC WITH AUTO WZJZVEZQKVVGEylndvm93/24/2025 2:54 PM EDT ECG 12-LEAD05/19/2025 2:[address] SOFT TISSUE NECK W IV JFGBETZHFrxrlor75/10/2025 2:54 PM EDT Thyroid nodule COLONOSCOPY GGYNNFNEXNCdjnkyr30/10/2024 8:38 AM EDT from Last 3 Months or Most Recently Relevant to Health Maintenance Results * GLUCOSE POCT GLUCOMETERS (06/02/2025 10:21 AM EST) Only the most recent of2 resultswithin the time period is included. ComponentValueRef RangeTest MethodAnalysis TimePerformed AtPathologist Signature GLUCOSE POC DIGJWPYFPCH143xd/dL06/02/2025 10:29 AM ESTFIRELANDSComment: Random Glucose Reference Range is dependent on time and content of last meal. Glucose of more than 200 mg/dL in a nonstressed, ambulatory subject supports the diagnosis of Diabetes Mellitus. VYJSZTE2Vvp4: Cleaned Meter06/02/2025 10:29 AM ESTFIRELANDSSpecimen (Source) Anatomical Location / LateralityCollection Method / VolumeCollection Time Received TimeBlood (Blood)06/02/2025 10:21 AM EST06/02/2025 10:28 AM EST Narrative Authorizing ProviderResult TypeResult StatusBenjamin W Murcek DOLAB BLOOD ORDERABLESFinal ResultPerforming OrganizationAddressCity/State/ZIP CodePhone Number [address] [place] [address], [place] * CBC auto differential (05/19/2025 2:54 PM EDT)ComponentValueRef RangeTest MethodAnalysis TimePerformed AtPathologist SignatureWBC7.84.1 - 10.5 [CFU]/mL 05/19/2025 3:15 PM [facility] CtrUNCORRECTED WHITE BLOOD COUNT7.84.1 - 10.5 10*3/uL05/19/2025 3:15 PM [facility] RBC4.933.90 - 5.60 10*6/uL05/19/2025 3:15 PM [facility] JASHUITGUM71.613.0 - 17.0 g/dL05/19/2025 3:15 PM [facility] AiaOXZZFTHMMU80.438.8 - 50.0 %05/19/2025 3:15 PM [facility] WgyFRJ03.083.5 - 101 fL05/19/2025 3:15 PM [facility] VxbXZF34.727.5 - 35.2 pg05/19/2025 3:15 PM [facility] YqaHDMS53.432.5 - 35.6 g/dL05/19/2025 3:15 PM [facility] CtrRED CELL DISTRIBUTION WIDTH, RDW14.612.0 - 14.8 %05/19/2025 3:15 PM [facility] CtrPLATELET TVAII361190 - 450 10*3/uL05/19/2025 3:15 PM [facility] CtrMEAN PLATELET VOLUME, MPV8.36.6 - 10.1 fL05/19/2025 3:15 PM [facility] CtrNEUTROPHILS, %67.5. %05/19/2025 3:15 PM [facility] CtrLYMPHOCYTES, %23.0. % 05/19/2025 3:15 PM [facility] CtrMONOCYTE/MACROPHAGE, %6.9. %05/19/2025 3:15 PM [facility] CtrEOSINOPHILS, %1.4. % 05/19/2025 3:15 PM [facility] CtrBASOPHILS, %1.2. % 05/19/2025 3:15 PM [facility] CtrNRBC0.10 - 0.5 /100{WBC} 05/19/2025 3:15 PM [facility] CtrNEUTROPHILS5.31.8 - 7.7 10*3/uL05/19/2025 3:15 PM [facility] CtrLYMPHOCYTES1.81.00 - 4.8 10*3/uL05/19/2025 3:15 PM [facility] CtrMONOCYTES0.5 0.0 - 0.8 10*3/uL05/19/2025 3:15 PM [facility] EOSINOPHILS0.10.0 - 0.45 10*3/uL05/19/2025 3:15 PM [facility] CtrBASOPHILS0.10.0 - 0.2 10*3/uL05/19/2025 3:15 PM [facility] CtrSpecimen (Source)Anatomical Location / Laterality Collection Method / VolumeCollection TimeReceived TimeBlood (Blood)05/19/2025 2:54 PM EDT1 3:07 PM EDT Narrative Authorizing ProviderResult TypeResult StatusBengabriela Ayers DOL BLOOD ORDERABLESFinal ResultPerforming OrganizationAddressCity/State/ZIP [facility] ArrowPhone Number [facility] [address] [place] [address], [facility] [address] [place] [address] * Vitamin D 25 hydroxy Total (05/19/2025 2:54 PM EDT)ComponentValueRef RangeTest MethodAnalysis TimePerformed AtPathologist SignatureVITAMIN D 25 HYDROXY TOTAL31.230 - 100 ng/mL05/19/2025 8:08 PM [facility] Comment: VITAMIN D STATUS ?? 25(OH)VITAMIN D RANGE (ng/mL) Deficient <20 Insufficient 20 to <30 Sufficient ? 30 to 100 Reference: Chema MF,Eduardo NC, Jayden GONZALES, et al. Evaluation,treatment, and prevention of vitamin D deficiency; an Endocrine Society clinical practice guideline. JCEM. 2011 [place]; 96(7):1911-30. Specimen (Source)Anatomical Location / LateralityCollection Method / Volume Collection TimeReceived TimeOtherTopography unknown / Qcoazgw6605/19/2025 2:54 PM EDT1 3:07 PM EDT [facility] 05/19/2025 8:08 PM EDT Comment PST Authorizing ProviderResult TypeResult StatusJuan GALAN BLOOD ORDERABLESFinal ResultPerforming OrganizationAddressCity/State/ZIP CodePhone Number [facility] [address] [place] [address], [facility] [address] [place] [address] * T3 (05/19/2025 2:54 PM EDT)ComponentValueRef RangeTest MethodAnalysis Time Performed AtPathologist SignatureTRIIODOTHYRONINE (T3) TOTAL1.180.87 - 1.78 ng/mL05/19/2025 8:08 PM [facility] CtrSpecimen (Source) Anatomical Location / LateralityCollection Method / VolumeCollection Time Received TimeOtherTopography unknown / Ibzrjwe7005/19/2025 2:54 PM EDT1 3:07 PM EDT [facility] 05/19/2025 8:08 PM EDT Comment PST Authorizing ProviderResult TypeResult StatusJuan GALAN BLOOD ORDERABLESFinal ResultPerforming OrganizationAddressCity/State/ZIP CodePhone Number [facility] [address] [place] [address], [facility] [address] [place] [address] * TSH (05/19/2025 2:54 PM EDT)ComponentValueRef RangeTest MethodAnalysis Time Performed AtPathologist SignatureTHYROID STIMULATING HORMONE0.830.45 - 5.33 u[iU]/mL05/19/2025 3:58 PM [facility] CtrSpecimen (Source) Anatomical Location / LateralityCollection Method / VolumeCollection Time Received TimeOtherTopography unknown / Lkmffqs0805/19/2025 2:54 PM EDT1 3:07 PM EDT [facility] 05/19/2025 8:08 PM EDT Comment PST Authorizing ProviderResult TypeResult StatusBengabriela Ayers DOLAB BLOOD ORDERABLESFinal ResultPerforming OrganizationAddressCity/State/ZIP CodePhone Number [facility] [address] [place] [address], [facility] [address] [place] [address] * T4 (05/19/2025 2:54 PM EDT)ComponentValueRef RangeTest MethodAnalysis Time Performed AtPathologist SignatureTHYROXINE (T4) TOTAL9.355.39 - 11.82 ug/dL 05/19/2025 3:58 PM ED[facility] CtrSpecimen (Source) Anatomical Location / LateralityCollection Method / VolumeCollection Time Received TimeOtherTopography unknown / Qspdahj9605/19/2025 2:54 PM EDT1 3:07 PM EDT [facility] - 05/19/2025 8:08 PM EDT Comment PST Authorizing ProviderResult TypeResult StatusGonzalesngabriela Ayers DOLAB BLOOD ORDERABLESFinal ResultPerforming OrganizationAddressCity/State/ZIP CodePhone Number [facility] [address] [place] [address], [facility] [address] [place] [address] * PTH, intact (05/19/2025 2:54 PM EDT)ComponentValueRef RangeTest MethodAnalysis TimePerformed AtPathologist SignaturePARATHYROID HORMONE QGPHIF11.312 - 88 pg/mL05/19/2025 3:53 PM EDCh[facility] CtrSpecimen (Source) Anatomical Location / LateralityCollection Method / VolumeCollection Time Received TimeOtherTopography unknown / Cjpbxio4005/19/2025 2:54 PM EDT1 3:07 PM EDT [facility] - 05/19/2025 3:53 PM EDT Comment PST Authorizing ProviderResult TypeResult StatusBengabriela Rouse Murcek DOLAB BLOOD ORDERABLESFinal ResultPerforming OrganizationAddressCity/State/ZIP CodePhone Number [facility] [address] [place] [address], [facility] [address] [place] [address] * (ABNORMAL) Basic metabolic panel (05/19/2025 2:54 PM EDT)ComponentValueRef RangeTest MethodAnalysis TimePerformed AtPathologist JmuaoxkinVqfaglm090(H)70 - 100 mg/dL05/19/2025 3:58 PM [facility] CtrComment: Random Glucose Reference Range is dependent on time and content of last meal. Glucose of more than 200 mg/dL in a nonstressed, ambulatory subject supports the diagnosis of Diabetes Mellitus. ADA recommended reference range IWV246 - 25 mg/dL05/19/2025 3:58 PM [facility] CtrCREATININE 0.770.70 - 1.30 mg/dL05/19/2025 3:58 PM [facility] ESTIMATED GFR>60. 3:58 PM [facility] XxrZheuoj156 136 - 145 mmol/L1 3:58 PM [facility] CtrPotassium, Bld4.03.5 - 5.1 mmol/L1 3:58 PM [facility] Qtlrnuhw21368 - 107 mmol/L1 3:58 PM [facility] Carbon Hwvsjyt00.721.0 - 31.0 mmol/L1 3:58 PM [facility] CtrAnion Gap11.36.0 - 15. 3:58 PM [facility] CtrCalcium9.98.6 - 10.3 mg/dL05/19/2025 3:58 PM [facility] CtrSpecimen (Source)Anatomical Location / LateralityCollection Method / VolumeCollection TimeReceived TimeOtherTopography unknown / Cdphigh9405/19/2025 2:54 PM EDT1 3:07 PM EDT Narrative [facility] - 05/19/2025 8:08 PM EDT Comment PST Authorizing ProviderResult TypeResult StatusBenjamin W Murcek DOLAB BLOOD ORDERABLESFinal ResultPerforming OrganizationAddressCity/State/ZIP CodePhone Number [facility] [address] [place] [address], [facility] [address] [place] [address] * ECG 12 lead (05/19/2025 2:38 PM EDT)Specimen (Source)Anatomical Location / LateralityCollection Method / VolumeCollection TimeReceived Time05/19/2025 2:38 PM EDT Narrative [facility] - 05/20/2025 11:30 AM EDT [facility] ?[facility] ?[address] ? [place] [address] ? Electrocardiograph Report ? Signed ? Patient: Miky,Rigo E JR ?MR#: M ?? [id number] ? : 1955 ?Acct:[id number] ? Age/Sex: 69 / M ?ADM Date: 05/19/25 ? Loc: PS ?Room: ?Type: DEP CLI ?? Attending Dr: Juan Ayers DO ? Ordering Provider: Juan Ayesr,DO ?? Date of Service: 05/19/25 ?? ECG/ECG 12 lead ECG: pst ? Copies to: ? Test Reason : ?? Blood Pressure : ?? */* ?? mmHG ?? Vent. Rate : ??88 BPM ? Atrial Rate : ??88 BPM ? P-R Int : 174 ms ?QRS Dur : 106 ms ?QT Int : 342 ms ? P-R-T Axes : ??43 ??21 ??34 degrees ?QTcB Int : 413 ms ? Normal sinus rhythm ?? Normal ECG ?? No previous ECGs available ?? Confirmed by SHABNAM CERDA MD, FACC ([id number]) on 05/20/2025 11:29:48 AM ? Referred By: ?Electronically Signed By: SHABNAM CERDA MD, FACC ? Transcribed By: ? MUS ? Signed By ? Shabnam Cerda MD, FACC ? 05/20/25 1129 Procedure Note Shabnam Cerda MD - 05/20/2025 [facility] [address] [place] [address] Electrocardiograph Report Signed Patient: Rigo Bolaños [facility]#: [id number] : 1955cct:[id number] Age/Sex: 69 / MADM Date: 05/19/25 Loc: Room:Type: [facility] Attending Dr: Juan Ayers DO Ordering Provider: [...] previous ECGs available Confirmed by DOMINIQUE WYNNE ST. [facility]AB[facility] HOSPITALSHABNAM Connor ([id number]) on 05/20/2025 11:29:48 AM Referred By: Electronically Signed By: SHABNAM CERDA MD FACGeeta Transcribed By: MUS Signed By Shabnam Cerda MD, FACC 05/20/25 1129 Authorizing ProviderResult TypeResult StatusBengabriela Ayers DOECG ORDERABLES Final ResultPerforming OrganizationAddressCity/State/ZIP CodePhone Number [facility] [address] [place] [address], [place] * CT soft tissue neck w IV contrast (05/05/2025 2:54 PM EDT)Anatomical Region LateralityModalityHead, NeckComputed TomographySpecimen (Source)Anatomical Location / LateralityCollection Method / VolumeCollection TimeReceived Time 05/08/2025 3:48 PM EDT Impressions 05/08/2025 4:00 PM EDT 2.0 x 1.8 cm low-attenuation nodule right lobe thyroid containing punctate calcification. If clinical concern warrants, thyroid sonography may be available for further evaluation to rule out malignancy. All CT scans at this facility use dose modulation, iterative reconstruction, and/or weight based dosing when appropriate to reduce radiation dose to as low as reasonably achievable. ELECTRONICALLY SIGNED BY: Juan Leon MD Narrative 05/08/2025 4:[address] SOFT TISSUE NECK WITH INTRAVENOUS CONTRAST MEDIUM. HISTORY: THYROID NODULES. TECHNICAL FACTORS: CT soft tissue neck obtained and formatted as 2.5 mm contiguous axial images. Sagittal and coronal reconstruction obtained during postprocessing. COMPARISON: None FINDINGS: Skull base:Normal Orbits: . Without anomaly. Facial sinuses: ??Well pneumatized Nasopharynx: Normal Mastoids: ??Air cells well aerated. Oral cavity: Without anomaly. [...] or peristernal region. Lung apices: Without anomaly. Procedure Note Juan Leon MD - 05/08/2025 CT SOFT TISSUE NECK WITH INTRAVENOUS CONTRAST MEDIUM. HISTORY: THYROID NODULES. TECHNICAL FACTORS: CT soft tissue neck obtained and formatted as 2.5 mm contiguous axial images. Sagittal and coronal reconstruction obtainedduring postprocessing. COMPARISON: None FINDINGS: Skull base:Normal Orbits: [...] 1.8 cm low-attenuation nodule right lobe with punctatecalcification within it. Otherwise, no cystic and no solid lesions arefound either within the retrosternal or peristernal region. Lung apices: Without anomaly. IMPRESSION: 2.0 x 1.8 cm low-attenuation nodule right lobe thyroid containing punctate calcification. If clinical concern warrants, thyroid sonography may beavailable for further evaluation to rule out malignancy. All CT scans at this facility use dose modulation, iterativereconstruction, and/or weight based dosing when appropriate to reduceradiation dose to as low as reasonably achievable. ELECTRONICALLY SIGNED BY: Juan Leon MD Authorizing ProviderResult TypeResult StatusBengabriela Ayers DOIMG CT PROCEDURESFinal Result * COLONOSCOPY DIAGNOSTIC (05/05/2024 8:38 AM EDT)Anatomical RegionLaterality ModalityRadiographic Imaging Narrative Authorizing ProviderResult TypeResult StatusCamumair Trinh MDIMG XR PROCEDURES Final Result from Last 3 Months or Most Recently Relevant to Health Maintenance Insurance * Guarantor: Rigo Bolaños Jr.Account TypeRelation to PatientDate of PhoneBilling AddressPersonal/VberrmWsdv90/02/1956 [address] [place] [address] Care Teams Team MemberRelationshipSpecialtyStart DateEnd Date Bakari Bhat MD [address] [place] [address] PCP - GeneralFamaly Medicine02/29/24 Cathleen Malik NP Nurse PractitionerPaul A. [facility]ever [facility] Medicine02/29/24
--- OUTSIDE RECORDS SUMMARY | 2025-06-30 12:43 | XMS_ITS | Clinical Summary ---
Author Organization [email or web address] tem Address [id number] [address] [place] [address] Care Team Providers Care Diamond Die Polisher Name Role Phone Mary Alice Schultz DEEPAK-RESEARCH CHIEF ENGINEER Primary Care Provider Allergies No known active allergies Medications MedicationSigDispense QuantityRefillsLast FilledStart DateEnd DateStatus metFORMIN (GLUCOPHAGE) 500 mg tablet Take 2 tablets (1,000 mg total) by mouth in the morning and 2 tablets (1,000 mg total) in the evening. Take with meals.08/13/2018Active lisinopril-hydroCHLOROthiazide (PRINZIDE,ZESTORETIC) 20-25 mg per tablet Take 1 tablet by mouth in the morning.07/29/2018Active aspirin 81 mg Indications:myocardial infarction preventionTake 1 tablet (81 mg total) by mouth in the morning. Indications: treatment to prevent a heart attack.Active afnpyyqj-ilhu-IK-calcium &mins (THERAGRAN-M) 9 mg iron-400 mcg tablet Take 1 tablet by mouth in the morning.Active pravastatin (PRAVACHOL) 40 mg tablet Take 1 tablet (40 mg total) by mouth in the morning.Active amLODIPine (NORVASC) 10 mg tablet Take 1 tablet (10 mg total) by mouth in the morning.Active DULoxetine (CYMBALTA) 60 mg capsule Take 1 capsule (60 mg total) by mouth in the morning.Active TRULICITY 1.5 mg/0.5 mL pen injector once a week.3Active carvediloL (COREG) 12.5 mg tablet Take 1 tablet (12.5 mg total) by mouth every 12 (twelve) hours.11/14/2022ctive busPIRone (BUSPAR) 15 mg tablet Take 1 tablet (15 mg total) by mouth in the morning and 1 tablet (15 mg total) before bedtime.10/21/2022ctive Active Problems ProblemNoted DateDiagnosed DateRight hip pain04/20/2019 Overview (04/20/2019): Added automatically from request for surgery [id number] Lumbar dmkrmqhgjoh04/13/2019Disorder of nlkvvb2210/06/2018Lumbosacral spondylosis without ocquvmxhoj45/04/2019 Overview (08/30/2018): Added automatically from request for surgery [id number] Family History Medical HistoryRelationNameCommentsCancerFatherCoronary artery diseaseMother RelationNameStatusCommentsFatherDeceasedlung caMotherAlive Social History Tobacco UseTypesPacks/DayYears UsedDateSmoking Tobacco: FormerSmokeless Tobacco: Never Tobacco Cessation:Counseling Given: Not Answered Comments:quit 35 years ago Alcohol UseStandard Drinks/WeekCommentsYes0 (1 standard drink = 0.6 oz pure alcohol)social, rarelyChildcareAnswerDate YkeqgrxgPylnwpccpZefmxum89/12/2019 EmploymentAnswerDate OlryfxmgTxdpfagiykTbrsdhs74/12/2019Purpose - LifeAnswerDate RecordedPurpose and direction in yfrwIggvjgy72/11/2021ex and Gender Information ValueDate RecordedSex Assigned at BirthNot on fileLegal CqrMznn4703/01/2015 11:26 AM EDTGender IdentityNot on fileSexual OrientationNot on file Last Filed Vital Signs Vital SignReadingTime TakenCommentsBlood Ttiduhvm685/8801/08/2023 9:00 AM EDT Eqeag273701/08/2023 9:00 AM ZOMSpbxptnshcw07.1 ??C (98.8 ??F)01/08/2023 6:30 AM EDTRespiratory Aqfc289601/08/2023 9:00 AM EDTOxygen Oirxdkuegl04%01/08/2023 9:00 AM EDTInhaled Oxygen Concentration--Vwactq125.4 kg (325 lb)01/08/2023 6:30 AM QSPGtqnpu012.6 cm (5' 6 )01/08/2023 6:30 AM EDTBody Mass Index52.4606 6:30 AM EDT Plan of Treatment Health MaintenanceDue DateLast DoneCommentsDepression Qmbkkjphr49/02/1969Tobacco Rkzxkrvsy38/02/1969DTaP,Tdap and Td Vaccines (1 - Tdap)1975Zoster (Shingles) Vaccine (1 of 2)2006RSV ( or age 60+ yrs) (1 - Risk 60- 74 years 1-dose series)2016Abdominal Aortic Aneurysm (AAA) Screen 2021Fall Risk Kfmnouftx66/02/2022dult BMI Hozqncqvs03/ Influenza Ylmfhlw02/, 06/05/2021, 04/25/2020, Additional history exists Medical Devices ImplantedTypeAreaManufacturerDevice IdentifierShelf Expiration DateModel / Serial / LotLens Iol Ultrasert 15.0d - [id number] - [id number] Implanted:Qty: 1 on 12/25/2022 by Montse Eduardo MD at [facility]: [id number] 15.0 / [id number] / NALens Iol Ultrasert 17.0d - [id number] - [id number] Implanted:Qty: 1 [facility]08[facility] [employer]/[id number] 17.0 / [id number] / NA Insurance * Guarantor: Rigo Bolaños Jr.Account TypeRelation to PatientDate of BirthPhoneBilling AddressPersonal/ItlmbsCshy77/02/1956 [address] [place] [address] Care Teams Team MemberRelationshipSpecialtyStart DateEnd Date Mary Alice Schultz APRN-BASIM [address] [place] [address] [facility] - [facility]27/17
[2025-06-30 13:09] LABS: Hematocrit 44.5 % (42.0-54.0); Hemoglobin 15.4 g/dL (14.0-18.0); Immature Granulocytes Abs Auto 0.02 10^3/uL (0.00-0.03); Immature Granulocytes Pct Auto 0.3 % (0.0-0.5); Lymphocytes Absolute Auto 1.6 10^3/uL (1.2-3.8); Mean Corpuscular HGB Conc 34.6 g/dL (29.9-35.2); Mean Corpuscular Hemoglobin 29.3 pg (25.9-34.0); Mean Corpuscular Volume 84.8 fL (80.0-94.0); Platelet Count 175 10^3/uL (150-450); Red Blood Count 5.25 10^6/uL (4.70-6.10); White Blood Count 7.0 10^3/uL (4.0-11.0)
[2025-06-30 13:26] LABS: Glucose Urine UA NEGATIVE (NEGATIVE)
[2025-06-30 14:26] LABS: Alanine Aminotransferase 31 U/L (16-63); Albumin Globulin Ratio 1.1; Albumin Level 3.9 g/dL (3.4-5.0); Alkaline Phosphatase 81 U/L (46-116); Anion Gap 11.6; Aspartate Amino Transferase 15 U/L (15-37); Blood Urea Nitrogen 13.0 mg/dL (7.0-18.0); Calcium 10.0 mg/dL (8.5-10.1); Carbon Dioxide 31.5 mmol/L (21.0-32.0); Chloride 102 mmol/L (98-107); Cholesterol 217 mg/dL (<=200); Estimated GFR (African America >60 (>=60 mL/min/1.73m^2); Estimated GFR (Non-African Ame >60 (>=60 mL/min/1.73m^2); Globulin 3.5 g/dL; Glucose 191 mg/dL (74-106); HDL Cholesterol 45 mg/dL (40-60); Potassium 4.1 mmol/L (3.5-5.1); Sodium 141 mmol/L (136-145); Total Protein 7.4 g/dL (6.4-8.2); Triglycerides 195 mg/dL (<=150); VLDL CHOLESTEROL 39.0 mg/dL
[2025-06-30 14:27] LABS: Microalbum Creatinine Ratio Ur 25.9 mg/g (0.0-29.9)
[2025-06-30 14:48] LABS: Cast Seen? NONE SEEN #/LPF (NONE SEEN); Crystals Seen? None Seen #/HPF (None Seen)
== END 2025-06-30 12:32 | disposition home or self-care (01) ==
LOC: LAB 12:38
PROVIDERS: PCP Nurse Practitioner; Visit Provider Nurse Practitioner
DX: E11.40 Type 2 diabetes mellitus with diabetic neuropathy, unspecified (principal); E55.9 Vitamin D deficiency, unspecified; R60.0 Localized edema; E78.2 Mixed hyperlipidemia; I10 Essential (primary) hypertension; E89.0 Postprocedural hypothyroidism; Z12.5 Encounter for screening for malignant neoplasm of prostate
CPT/HCPCS: 36415; 80053; 80061; 81001; 82043; 82306; 82570; 84436; 84443; 84480; 85025; G0103

== ENCOUNTER 2025-06-30 12:40 | Outpatient (OUT) | payer MEDICARE, SELFPAY ==
--- OUTSIDE RECORDS SUMMARY | 2025-06-30 12:47 | XMS_ITS | CCD ---
Author Organization [facility] Care Team Providers Care Painter Maintenance Name Role Phone Ema Mitchell Unavailable SHAIKH Shadi RAM Attending Unavailable GEOFFWSHERMAN SOLITARIOIKH H Admitting Unavailable FAWWAD, PATINO H Primary Care Unavailable FAWWAD, PATINO H Admitting Unavailable FAWWAD, PATINO H Primary Care Unavailable FAWWAD, PATINO H Consulting Unavailable FAWWAJose Guadalupe PATINO H Attending Unavailable Ban Heaton Unavailable Shaikh Ram MD Primary Care Provider NON STAFF Primary Care Provider UnavailMD Van Pradhan Attending Provider Bakari Marina MD Primary Care Provider [phone] Malik [employer], Samantha Unavailable Faisal Cr [facility] Unavailable Unavailable Malik [employer], Samantha Unavailable [phone] BAKARI MARINA Primary Care Physician Tiff Boo Attending Unavailable ONELIA SIMON Referring Unavailable NON STAFF Primary Care Provider UnavailTiff Castorena MD Attending Provider [phone] Onelia Simon Attending Provider Tiff Boo MD Other Provider Bakari Marina MD Primary Care Provider Malik [employer], Samantha Unavailable [phone] Alfred [employer]IVER-C, Onelia Rodriguez Attending Provider Juan Ayers DO Attending Provider [phone] Leanna WYNNE, Patino Primary Care Provider [phone] Faisal Cr LPC Unavailable Unavailable Home WYNNE, Bakari Primary Care Provider [phone] NON STAFF Primary Care Provider UnavailTiff Castorena MD Attending Provider Alfred [employer]-C, Onelia Rodriguez Attending Provider Tiff Boo MD Other Provider Juan Ayers DO Attending Provider [phone] EMMANUEL JIANG Attending Unavailable MALIKSAMANTHA COSTA Attending [...] 1.34 MG/ML Pen Injector [Ozempic] (1 source)Start: 54-23-3976nmlpta 1 mg by subcutaneous injection every week [...] 40 mg oral tablet (20 sources)Vitamin CStart: 06-07-3563ckab 1 tablet by mouth once dailyMultiple Vitamin (Multivitamin Adult) tablet Indications: Type 2 diabetes mellitus without complication, without long-term current use of insulin (HCC) Take 1 each by mouth Daily 90 tablet 10/31/2024tive End: 13-64-8126Fxjzalne Vitamin (Multivitamin Adult) tablet Orally 10/31/2024 Discontinued (Reorder)aspirin 81 mg oral tablet (20 sources)Platelet Aggregation Inhibitor, Nonsteroidal Anti-inflammatory Drug Start: 10-75-4649suay 2 capsules by mouth once daily in the morningAspirin 81 mg capsule Active 81 MG PO Every morning 90 0 May 31, 2025 8:38am Type 2 diabetes mellitus, without long-term current use of insulin Type 2 diabetes mellitus without complications OnHold: Resume on 06/07/25. Complies with drug therapyStart: 10-31-2024 End: 82-97-2390uaeh 1 tablet by mouth in the morningaspirin 81 MG EC tablet Indications: Type 2 diabetes mellitus without complication, without long-term current use of insulin (HCC) Take 1 tablet (81 mg) by mouth in the morning. 90 tablet 10/31/2024 ActiveStart: 04-18-2024 End: 48-58-3538zxzc 1 capsule by mouth once daily in the morningAspirin 81 mg capsule Discontinued 81 MG PO Every morning April 17, 2024 11:00pm May 31, 2025 8:38am End: 48-63-8906ncwglxc 81 MG chewable tablet Chew 81 mg in the morning. 03/24/2024 Discontinued (Duplicate order)Blood-Glucose Sensor (Freestyle Anamaria 3 Plus Sensor) device (2 sources)Start: 86-48-4190Olylo-Glucose Sensor (Freestyle Anamaria 3 Plus Sensor) device Active 0 .Route 2 June 0157:19am Type 2 diabetes mellitus, without long-term current use of insulin Type 2 diabetes mellitus without complications change once every 15 daysStart: 06-01-2025 End: 22-40-8604Jgcxr-Glucose Sensor (Freestyle Anamaria 3 Plus Sensor) device [...] Status: Ordered Repeat number: 1Start: 04-18-2024 End: 62-02-4833omyo 1 tablet by mouth twice daily at mealtimeCarvedilol 12.5 mg tablet Active 12.5 MG PO Twice daily 180 0 May 31, 2025 8:34am Primary hypertension Essential (primary) hypertension must administer with a meal/food Complies with drug therapyStart: 04-18-2024 End: 82-09-9176yipi 1 tablet by mouth oncecarvedilol (Coreg) 12.5 MG tablet Indications: Essential (primary) hypertension Take 1 tablet (12.5mg) by mouth every 12 (twelve) hours 180 tablet 10/31/2024 ActiveStart: 18-24-6814jmqy 1 tablet by mouth every twelve hourscarvedilol (Coreg) 12.5 MG tablet Indications: Essential (primary) hypertension (CMS/HCC) TAKE 1 TABLET BY MOUTH EVERY 12 HOURS 180 tablet 1 11/10/2023 Activetake 1 tablet by mouth every twelve hours carvedilol (Coreg) 12.5 MG tablet Take 12.5 mg by mouth every 12 (twelve) hours 0 Activecephalexin 500 mg oral capsule (1 source)Cephalosporin AntibacterialStart: 87-52-4239ytgn 1 capsule by mouth every eight hoursCephalexin 500 MG 1 capsule Orally every 8 hrs for 7 days Feb, Activecholecalciferol 0.05 mg oral tablet (15 sources)Vitamin DStart: 01-05-2025 End: 04-22-2527znzi 1 tablet by mouth once dailycholecalciferol (Vitamin D-3) 50 MCG (1999 [place]) tablet Indications: Vitamin D deficiency Take 1 tablet (50 mcg) by mouth Daily 30 tablet 2 01/05/2025 02/04/2025 ActiveContinuous Glucose Certified Nurses' Aide (FreeStyle Anamaria 2 [place]) device (6 sources)Start: 03-24-2024 End: 29-82-7407Zflwzazbqq Glucose Certified Nurses' Aide (FreeStyle Anamaria 2 [place]) device Indications: Type 2 diabetes mellituswithout complication, without long-term current use of insulin (CMS/HCC) Inject 1 each under the skin continuously for 28 days 1 each 03/24/2024 04/21/2024 ActiveContinuous Glucose Certified Nurses' Aide (FreeStyle Anamaria 3 [place]) device (20 sources)Start: 11-96-0796Xccweqkrgk Glucose Certified Nurses' Aide (FreeStyle Anamaria 3 [place]) device Indications: Type 2 diabetes mellituswithout complication, without long-term current use of insulin ([facility]) 1 each continuously 1 each 01/2025 ActiveStart: 98-26-5039Ggazepqilu Glucose Certified Nurses' Aide (FreeStyle Anamaria 3 [place]) device Indications: Type 2 diabetes mellituswithout complication, without long-term current use of insulin 1 each continuously 1 each 10/31/2024 ActiveStart: 09-13-2024 End: 75-20-0955Gdzlnchgwi Glucose Certified Nurses' Aide (FreeStyle Anamaria 3 [place]) device Indications: Type 2 diabetes mellituswithout complication, without long-term current use of insulin 1 each continuously 1 each 09/13/2024 10/31/2024 Discontinued (Reorder)Start: 59-78-9467Evbqjkehrw Glucose Certified Nurses' Aide (FreeStyle Anamaria 3 [place]) device Indications: Type 2 diabetes mellituswithout complication, without long-term current use of insulin (CMS/HCC) 1 each continuously 1 each09/13/2024 ActiveContinuous Glucose Sensor (FreeStyle Anamaria 3 Plus Sensor) misc (20 sources)Start: 08-91-4073Cpcoxyniuf Glucose Sensor (FreeStyle Anamaria 3 Plus Sensor) misc Indications: Type 2 diabetes mellitus without complication, without long-term current use of insulin ([facility]) 1 each continuously 2 each ActiveStart: 78-56-3446Kxlpcijwny Glucose Sensor (FreeStyle Anamaria 3 Plus Sensor) misc Indications: Type 2 diabetes mellitus without complication, without long- term current use of insulin 1 each continuously 2 each 10/31/2024 Active Start: 09-13-2024 End: 39-27-0897Vbsgdwcliv Glucose Sensor (FreeStyle Anamaria 3 Plus Sensor) [facility] [place] Indications: Type 2 diabetes mellitus without complication, without long-term current use of insulin 1 each continuously 2 each 09/13/2024 10/31/2024 Discontinued (Reorder)Start: 28-13-3279Vziebaonay Glucose Sensor (FreeStyle Anamaria 3 Plus Sensor) [facility] [place] Indications: Type 2 diabetes mellitus without complication, without long-term current use of insulin (CMS/[facility]) 1 each continuously 2 each 09/13/2024 Activedexamethasone 1 mg oral tablet (1 source)CorticosteroidStart: 81-16-0118brti 1 tablet by mouth once in the morningdexamethasone 1 mg oral tablet 1 mg = 1 tab(s), Oral, Once, Take at 11 pm. Must get cortisol blood level drawn the next morning at 8 am., # 1 tab(s), Refills(s) 0, Pharmacy: [facility], 168, cm, 03/08/25 10:47:00 EDT, Height/Length Dosing, 140.5, kg, 03/08/25 10:47:00 EDT, Weight Dosing Start Date: 03/08/25 Status: Ordered Quantity: 1.0 Unit: tab(s) Repeat number: 1 dicyclomine hydrochloride 20 mg oral tablet (1 source)AnticholinergicStart: 46-69-0735jenw 1 tablet by mouth three times daily [...] sources)Serotonin and Norepinephrine Reuptake InhibitorStart: 12-14-2024 End: 02-22-1481vhsj 1 capsule by mouth once daily in the morningDuloxetine 60 mg capsule,delayed release(DR/EC) Active 60 MG PO Every morning 90 May 31, 2025 8:35am Moderate episode of recurrent major depressive disorder Generalized anxiety disorder Majordepressive disorder, recurrent, moderate Generalized anxiety disorder Complies with drug therapyStart: 11-03-2023 End: 33-05-2999inrk 1 capsule by mouth once dailyDuloxetine (Cymbalta) 30 mg capsule,delayed release(DR/EC) Discontinued 30 MG PO Daily April 17, 2024 11:00pm April 03, 2025 9:34amStart: 34-87-4225gnkb 1 capsule by mouth once dailyDULoxetine (Cymbalta) [address] capsule Indications: Other specified anxiety disorders TAKE 1 CAPSULE BY MOUTH DAILY 30 capsule 0 09/07/2023 ActiveStart: 84-55-9578byro 1 capsule by mouth once dailyDULoxetine (Cymbalta) [address] capsule Indications: Other specified anxiety disorders TAKE 1 CAPSULE BY MOUTH DAILY 30 capsule 0 08/13/2023 Activeetodolac 300 mg oral capsule (20 sources)Nonsteroidal Anti-inflammatory DrugStart: 00-66-1172akcq 1 capsule by mouth every eight hours as needed for painetodolac (Lodine) 300 MG capsule TAKE 1 CAPSULE BY MOUTH EVERY 8 HOURS NEEDED FOR PAIN 12/27/2024 Active furosemide 40 mg oral tablet (2 sources)Loop Diuretictake 1 tablet by mouth every twenty-four hoursFurosemide 40 MG 1 tablet Orally Once a day Activegabapentin 100 mg oral capsule (20 sources)Anti-epileptic AgentStart: 06-16-2024 End: 81-79-9114vbxl 1 capsule by mouth in the morninggabapentin (Neurontin) 100 MG capsule Indications: Type 2 diabetes mellitus with polyneuropathy (HCC) Take 1 capsule (100 mg) by mouth in the morning and 1 capsule (100 mg) before bedtime. 180 capsule 10/31/2024 ActivehydroCHLOROthiazide 25 mg / lisinopril 20 mg oral tablet (20 sources)Thiazide Diuretic, Angiotensin Converting Enzyme InhibitorStart: 02-01-2024 End: 26-40-6356nvkr 1 tablet by mouth once daily in the morningLisinopril- Hydrochlorothiazide 20-25 mg tablet Active 1 TAB PO Every morning 90 0 May 31, 2025 8:35am Primary hypertension Essential (primary) hypertension Complies with drug therapytake 1 tablet by mouth in the morninglisinopril- hydroCHLOROthiazide 20-25 MG tablet Take 1 tablet by mouth in the morning. 0 Activelatanoprost 0.05 mg/ml ophthalmic solution (20 sources)Prostaglandin AnalogStart: 90-36-7758ynmr 1 drop(s) into the eye(s) once daily [...] hydrochloride 1000 mg oral tablet (20 sources)BiguanideStart: 08-26-6049asqp 2 tablets by mouth twice daily at mealtimeMetformin 1,000 mg tablet Active 1000 MG PO Twice daily with meals 180 0 May 31, 2025 12:00amType 2 diabetes mellitus, without long-term current use of insulin Type 2 diabetes mellitus withoutcomplications Complies with drug therapyStart: 04-18-2024 End: 30-89-9733uqbn 2 tablets by mouth twice dailyMetformin 500 mg tablet Discontinued 1000 MG PO Twice daily April 17, 2024 11:00pm May 31, 2025 8:36amStart: 92-49-6748sdvl 1 tablet by mouth twice dailyMetformin 500 mg tablet Active 500 MG PO Twice daily April 18, 2024 12:00am Complies with drug therapyStart: 02-01-2024 End: 47-31-2906rbfq 1 tablet by mouth in the morningmetFORMIN [...] 750 mg oral tablet (20 sources)Muscle RelaxantStart: 03-56-2905hmfo 1 tablet by mouth every eight hoursmethocarbamol (Robaxin) 750 MG tablet Take 750 mg by mouth every 8 (eight) hours 12/27/2024 ActiveMultivitamin Adult - (2 sources)Multivitamin Adult - Orally CpgymmGbwivkojjabt-Wvuqsnfg-Cfqzrd (Multivitamin 50 Plus) tablet (6 sources)Start: 72-84-0224Lgrkcsaesydu-Minerals-Lutein (Multivitamin 50 Plus) tablet Active 1 TAB PO Every morning April 17, 2024 11:00pm Complies with drug therapyStart: 86-97-8526Eemwb: 50-95-5768Qzwbulumvixa-Minerals-Lutein (Multivitamin 50 Plus) tablet Active 1 TAB PO Daily April 18, 2024 12:00am Complies with drug therapyStart: 97-38-4116Vgsog: 04-18-2024 Sicocvquvssj-Bdxzpuaz-Ltjqzt (Multivitamin 50 Plus) tablet Active 1 TAB PO Daily April 18, 2024 12:00amPARoxetine hydrochloride 20 mg oral tablet (20 sources)Serotonin Reuptake InhibitorStart: 06-16-2023 End: 41-51-5183ranp 1 tablet by mouth in the morningPARoxetine (Paxil) 20 MG tablet Take 20 mg by mouth in the morning. 0 06/16/2023 Activepravastatin sodium 40 mg oral tablet (20 sources)HMG-CoA Reductase InhibitorStart: 02-01-2024 End: 47-05-1881lish 1 tablet by mouth once daily at bedtimePravastatin 40 mg tablet Active 40 MG PO Daily at bedtime 90 0 May 31, 2025 8:36am Mixed hyperlipidemia Mixed hyperlipidemia Complies with drug therapytake 1 tablet by mouth in the morningpravastatin (Pravachol) 40 MG tablet Take 40 mg by mouth in the morning. 0 ActiveSemaglutide (3 sources)Start: 77-50-4610Uihqwgsxnth (Ozempic) 1 mg/dose (4 mg/3 mL) pen injector Active 1 MG SUBCUT every week 9 2024 8:37am Type 2 diabetes mellitus, without long-term current use of insulin Type 2 diabetes mellitus without complications Complies with drug therapyStart: 05-19-2025 End: 46-93-9455pypdlu 1 mg by subcutaneous injection every weekSemaglutide (Ozempic) 1 mg/dose (4 mg/3 mL) pen injector Discontinued 1 MG SUBCUT every week May 18, 2025 11:00pm May 31, 2025 8:37amStart: 50-33-9025misnel 1 mg by subcutaneous injection every weeksemaglutide (Ozempic, 1 MG/DOSE,) 4 MG/3ML solution pen-injector (20 sources)Start: 44-27-5080xpdvcy 1 mg by subcutaneous injection every week semaglutide (Ozempic, 1 MG/DOSE,) 4 MG/3ML solution pen-injector Indications: Type 2 diabetes mellitus without complication, without long-term current use of insulin (HCC) Inject 1 mg under the skin 1 (one) time per week 9 mL 1 01/31/2025 ActiveStart: 01-31-2025 End: 54-06-1493sxbhpd 1 mg by subcutaneous injection every weeksemaglutide (Ozempic, 1 MG/DOSE,) 4 MG/3ML solution pen-injector Indications: Type 2 diabetes mellitus without complication, without long-term current use of insulin (HCC) Inject 1 mg under the skin 1 (one) time per week 9 mL 1 01/31/2025 04/25/2025 ActiveStart: 01-23-2025 End: 10-55-9134jmnedd 1 mg by subcutaneous injection every weeksemaglutide (Ozempic, 1 MG/DOSE,) 4 MG/3ML solution pen-injector Indications: Type 2 diabetes mellitus without complication, without long-term current use of insulin (HCC) Inject 1 mg under the skin 1 (one) time per week 9 mL 01/23/2025 01/31/2025 DiscontinuedStart: 01-23-2025 End: 88-45-4128dgvwyz 1 mg by subcutaneous injection every weeksemaglutide (Ozempic, 1 MG/DOSE,) 4 MG/3ML solution pen-injector Indications: Type 2 diabetes mellitus without complication, without long-term current use of insulin (HCC) Inject 1 mg under the skin 1 (one) time per week 9 mL 01/23/2025 04/23/2025 ActiveStart: 10-31-2024 End: 45-94-8989yeaxvo 1 mg by subcutaneous injection every weeksemaglutide (Ozempic, 1 MG/DOSE,) 4 MG/3ML solution pen-injector Indications: Type 2 diabetes mellitus without complication, without long-term current use of insulin (HCC) Inject 1 mg under the skin 1 (one) time per week 9 mL 10/31/2024 01/23/2025 Discontinued (Reorder)Start: 10-31-2024 End: 24-35-6854rfedmy 1 mg by subcutaneous injection every weeksemaglutide (Ozempic, 1 MG/DOSE,) 4 MG/3ML solution pen-injector Indications: Type 2 diabetes mellitus without complication, without long-term current use of insulin (HCC) Inject 1 mg under the skin 1 (one) time per week 9 mL 10/31/2024 01/29/2025 ActiveStart: 10-31-2024 End: 47-09-0770vzhvph 1 mg by subcutaneous injection every weeksemaglutide (Ozempic, 1 MG/DOSE,) 4 MG/3ML solution pen-injector Indications: Type 2 diabetes mellitus without complication, without long-term current use of insulin Inject 1 mg under the skin 1 (one) time per week 9 mL 10/31/2024 01/29/2025 ActiveStart: 08-01-2024 End: 07-00-7655kubfmc 1 mg by subcutaneous injection every weeksemaglutide (Ozempic, 1 MG/DOSE,) 4 MG/3ML solution pen-injector Indications: Type 2 diabetes mellitus without complication, without long-term current use of insulin Inject 1 mg under the skin 1 (one) time per week 9 mL 08/01/2024 10/31/2024 Discontinued (Reorder)Start: 08-01-2024 End: 40-66-4472ovonwi 1 mg by subcutaneous injection every weeksemaglutide (Ozempic, 1 MG/DOSE,) 4 MG/3ML solution pen-injector Indications: Type 2 diabetes mellitus without complication, without long-term current use of insulin (CMS/HCC) Inject 1 mg under the skin 1 (one) time per week 9 mL 08/01/2024 10/30/2024 ActiveStart: 12-23-2023 End: 89-12-4284trkjlt 1 mg by subcutaneous injection every weeksemaglutide (Ozempic, 1 MG/DOSE,) 4 MG/3ML solution pen-injector Indications: Type 2 diabetes mellitus without complication, without long-term current use of insulin (CMS/HCC) Inject 1 mg under the skin 1 (one) time per week 9 mL 12/23/2023 08/01/2024 Discontinued (Reorder)Start: 27-96-6679fxgary 1 mg by subcutaneous injection every weeksemaglutide [...] tablet (4 sources)Dihydropyridine Calcium Channel Joaquin End: 86-46-0009luti 1 tablet by mouth in the morningamLODIPine (Norvasc) 10 MG tablet Take 10 mg by mouth in the morning. 0 08/27/2023 Discontinued (Therapy completed)24 hr buPROPion hydrochloride 150 mg extended release oral tablet (4 sources)Aminoketone End: 93-08-8575weww 1 tablet by mouth every twenty-four hours in the morning buPROPion XL (Wellbutrin XL) 150 MG 24 hr tablet Take 150 mg by mouth in the morning. 0 08/27/2023 Discontinued (Ineffective)take 1 tablet by mouth every twenty-four hoursbuPROPion HCl ER (XL) 150 MG 1 tablet in the morning Orally Once a day ActiveContinuous Blood Gluc Certified Nurses' Aide (FreeStyle Anamaria 2 [place]) device (6 sources)Start: 06-15-2023 End: 94-84-8559Ygxfuayncy Blood Gluc Certified Nurses' Aide (FreeStyle Anamaria 2 [place]) device USE DIRECTED to test BLOOD SUGAR 06/15/2023 03/24/2024 Discontinued (Reorder) Start: 50-54-9404Ncncurmnau Blood Gluc Certified Nurses' Aide (FreeStyle Anamaria 2 [place]) device USE DIRECTED to test BLOOD SUGAR 06/15/2023 ActiveStart: 06-15-2023 Continuous Blood Gluc Certified Nurses' Aide (FreeStyle Anamaria 2 [place]) device USE DIRECTED to test BLOOD SUGAR 0 06/15/2023 ActiveContinuous Blood Gluc Sensor (FreeStyle Anamaria 2 Sensor) misc (6 sources)Start: 06-15-2023 End: 20-06-0269Nmeyzbanuf Blood Gluc Sensor (FreeStyle Anamaria 2 Sensor) misc USE DIRECTED to test BLOOD SUGAR; change EVERY 14 days 06/15/2023 03/24/2024 Discontinued (Reorder)Start: 34-69-6440Vdeuchtvou Blood Gluc Sensor (FreeStyle Anamaria 2 Sensor) misc USE DIRECTED to test BLOOD SUGAR; change EVERY 14 days 06/15/2023 ActiveStart: 61-58-7266Cyseqeqqlg Blood Gluc Sensor (FreeStyle Anamaria 2 Sensor) misc USE DIRECTED to test BLOOD SUGAR; change EVERY 14 days 0 06/15/2023 ActiveContinuous Glucose Sensor (FreeStyle Anamaria 2 Sensor) misc (20 sources)Start: 03-25-2024 End: 35-93-8140Jxhxkobeap Glucose Sensor (FreeStyle Anamaria 2 Sensor) misc Indications: Type 2 diabetes mellitus without complication, without long-term current use of insulin (CMS/[facility]) USE DIRECTED to test BLOOD SUGAR, change every 14 days 2 each 03/25/2024 09/13/2024 DiscontinuedStart: 03-25-2024 Continuous Glucose Sensor (FreeStyle Anamaria 2 Sensor) misc Indications: Type 2 diabetes mellitus without complication, without long-term current use of insulin (CMS/HCC) USE DIRECTED to test BLOOD SUGAR, change every 14 days 2 each 03/25/2024 ActiveStart: 03-24-2024 End: 24-25-9884Swcouqwfbz Glucose Sensor (FreeStyle Anamaria 2 Sensor) [facility] [place] Indications: Type 2 diabetes mellitus without complication, without long-term current use of insulin ([facility]) Inject 1 each under the skin continuously for 28 days 1 each 03/24/2024 03/25/2024 DiscontinuedStart: 03-24-2024 End: 36-96-4438Nkwqiuzwem Glucose Sensor (FreeStyle Anamaria 2 Sensor) [facility] [place] Indications: Type 2 diabetes mellitus without complication, without long-term current use of insulin ([facility]) Inject 1 each under the skin continuously for 28 days 1 each 03/24/2024 04/21/2024 ActiveFLUoxetine 20 mg oral capsule (2 sources)Serotonin Reuptake Inhibitortake 1 capsule by mouth every twenty-four hoursFLUoxetine HCl 20 MG 1 capsule in the morning Orally Once a day Not-Taking ketorolac tromethamine 5 mg/ml ophthalmic solution (3 sources)Nonsteroidal Anti-inflammatory Drug, Cyclooxygenase InhibitorStart: 01-04-2023 End: 21-94-0763amxc 1 drop(s) into the eye(s) four times dailyketorolac (Acular) 0.5 % ophthalmic solution INSTILL 1 DROP into operative eye FOUR TIMES DAILY DIRECTED 0 01/04/2023 08/27/2023 Discontinued (Therapy completed)Start: 79-80-4339Ulnexru per 15 mg 15 Jul, 2017 60 mgloratadine 10 mg oral tablet (20 sources)Start: 09-07-2023 End: 09-50-1559mowl 1 tablet by mouth once dailyloratadine (Claritin) 10 MG tablet Indications: H/O seasonal allergies Take 1 tablet (10 mg) by mouth Daily 90 tablet 10/31/2024 12/14/2024 Discontinued (Therapy completed)Start: 07-09-2023 End: 61-26-9874maff 1 capsule by mouth in the morningLoratadine 10 MG capsule Indications: Non-seasonal allergic rhinitis, unspecified trigger Take 10 mg by mouth in the morning. 30 capsule 1 07/09/2023 08/27/2023 Discontinued (Therapy completed)meloxicam 15 mg oral tablet (20 sources)Nonsteroidal Anti-inflammatory DrugStart: 06-15-2023 End: 22-05-3466prsu 1 tablet by mouth once daily as needed for painmeloxicam (Mobic) 15 MG tablet Indications: Lumbar spondylosis Take 1 tablet (15 mg) by mouth Dailyas needed for moderate pain or mild pain 90 tablet 10/31/2024 12/14/2024 Discontinued (Therapy completed)naproxen 500 mg oral tablet (2 sources)Nonsteroidal Anti-inflammatory Drug End: 98-26-6187oysqlwtv (Naprosyn) 500 MG tablet every 12 (twelve) hours 0 08/27/2023 Discontinued (Therapy completed) Problems Active Problems Problem ClassificationProblemDateDocumented DateEpisodic/ChronicAbdominal pain (18 sources)Generalized abdominal pain; Translations: [Generalized abdominal pain]Onset: [id number] foot deformities (20 sources)Toe joint rigid; Translations: [Hallux rigidus, left foot]Onset: [id number] foot deformities (4 sources)Toe joint rigid; Translations: [Hallux rigidus, right foot]04-14-2024 ChronicAllergic reactions (2 sources)H/O: non-drug allergy; Translations: [Allergy status to unspecified drugs, medicaments and biological substances status]54-26-5587GomafmckWirofdp disorders (4 sources)Anxiety disorder; Translations: [Other specified anxiety disorders] 73-26-1405AcyztzpEvgdqrit of urinary tract (2 sources)Kidney stone; Translations: [Calculus of kidney]Onset: 03-08-2025 EpisodicDiabetes mellitus with complications (20 sources)Polyneuropathy due to type 2 diabetes mellitus; Translations: [Type 2 diabetes mellitus with diabetic polyneuropathy]Onset: [id number] ChronicDiabetes mellitus without complication (20 sources)Type 2 diabetes mellitus without complications; Translations: [Type 2 diabetes mellitus without complication]Onset: 05-68-0541ZeywqynUcgygyqod of lipid metabolism (20 sources)Hyperlipidemia, unspecified; Translations: [Hyperlipidemia]Onset: [id number] hypertension (20 sources)Essential hypertension; Translations: [Essential (primary) hypertension]Onset: [id number] disorders (20 sources)Moderate recurrent major depression; Translations: [Major depressive disorder, recurrent, moderate]83-62-9498PhigjiyAoazkcxgytf deficiencies (20 sources)Vitamin D deficiency; Translations: [Vitamin D deficiency, unspecified]Onset: [id number] wounds of extremities (1 source)Laceration without foreign body, left lower leg, initial encounter EpisodicOther diseases of veins and lymphatics (4 sources)Vascular insufficiency; Translations: [Venous insufficiency (chronic) (peripheral)]82-68-5405EbqonbvqCosmd endocrine disorders (20 sources)Adrenal mass; 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, unspecified] Onset: 795026-47-0619PdoidsoNhlcr endocrine disorders (20 sources)Mass of left adrenal gland; Translations: [Other specified disorders of adrenal gland]Onset: 760754-14-2626MvaluirRioqf endocrine disorders (1 source)Disorder of adrenal gland; 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, unspecified]Onset: 63-19-3777LoahaooOehyy endocrine disorders (1 source)Disorder of adrenal gland, unspecified; 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, unspecified]Onset: 62-49-1766HmojepuCwuto gastrointestinal disorders (2 sources)Adrenal blau53-27-4810DzshlfvsQfnec non-traumatic joint disorders (20 sources)Pain in right knee; Translations: [Pain in joint, lower leg]Onset: 678471-21-2080VudakgzjAckgx non-traumatic joint disorders (20 sources)Hip pain; Translations: [Pain in right hip]Onset: 04-20-2019 87-77-6468ZrpeakrqDgqdh nutritional; endocrine; and metabolic disorders (20 sources)Severe obesity; Translations: [Morbid (severe) obesity due to excess calories]Onset: 135055-78-5956WknwzizNfegb nutritional; endocrine; and metabolic disorders (20 sources)Hypercalcemia; Translations: [Hypercalcemia]Onset: 12-28-2024 54-91-2299CvrombfJgtfh nutritional; endocrine; and metabolic disorders (1 source)Obese class III; Translations: [Class 3 obesity]30-85-0208RmkvfnhYcjsj upper respiratory disease (20 sources)Allergic rhinitis; Translations: [Other allergic rhinitis]Onset: 771175-58-3380XcqhljvKzjwamfw codes; unclassified (20 sources)Obstructive sleep apnea syndrome; Translations: [Obstructive sleep apnea (adult) (pediatric)]Onset: 193093-97-8424IumhudqCqumwfvq codes; unclassified (20 sources)Bilateral lower limb edema; Translations: [Localized edema]Onset: 154535-94-1655HifvivkvOcjdspavekt; intervertebral disc disorders; other back problems (20 sources)Lumbar spondylosis; Translations: [Spondylosis without myelopathy or radiculopathy, lumbar region]Onset: 855562-91-9940IghbrwfVkbuksq disorders (20 sources)Thyroid nodule; Translations: [Nontoxic single thyroid nodule]Onset: 792658-88-9599LwimndxQoaeiqp disorders (3 sources)Mass of thyroid gland; Translations: [Disorder of thyroid, unspecified]Onset: 262375-80-8802DntdcenyDocprvesgrro (1 source)E04.1 - Nontoxic single thyroid nodule Past or Other Problems Problem ClassificationProblemDateDocumented DateEpisodic/ChronicImmunizations and screening for infectious disease (1 source)Contact with and (suspected) exposure to other viral communicable diseasesOnset: 07-12-2021 Resolved: 87-34-1423KldqphvrKqjafsy and fatigue (1 source)Other fatigueOnset: 07-12-2021 Resolved: 31-77-5071EqlykacrMlwl disorders (20 sources)Mood disordersOnset: 305968-18-0788Udavssp (20 sources)Onychomycosis; Translations: [Tinea unguium]Onset: 04-27-2024 25-03-0138ZtdugqlvAnudi connective tissue disease (2 sources)Pain of toes of bilateral feet; Translations: [Pain in right toe(s)] 33-64-3385UszmwfcuFthtw lower respiratory disease (20 sources)Dyspnea on exertion; Translations: [Other forms of dyspnea]Onset: 08-27-2023 Resolved: 371495-30-8673ZdmyrojbOuyuc non-traumatic joint disorders (6 sources)Pain in right hip joint; Translations: [Pain in right hip]Onset: 087026-82-0913SrsnsmcaOkjpm screening for suspected conditions (not mental disorders or infectious disease) (20 sources)Patient encounter status; Translations: [Encounter for screening for malignant neoplasm of prostate]Onset: 592136-46-4570OdqplxtrUelke upper respiratory infections (20 sources)Acute upper respiratory infection, unspecified; Translations: [Acute sinusitis]Onset: 07-12-2021 Resolved: 92-84-3774Ajbmhhik Results Test NameValueInterpretationReference RangeFacilityCapillary blood glucose measurement by glucometer (mass/volume)Ordered By: Juan Ayers on 06-02-2025 Glucose [Mass/Vol]201 mg/dLGlenbeigh HospitalComment on above:Random Glucose Reference Range is [...] GLULS ####Point of Care testing,GLUCOSE POCT GLUCOMETERSon 36-84-3022PMXBYXW1Aln9: Cleaned MeterNOMS HealthcareGlucose [Mass/Vol]201 mg/dLNODE HealthcareComment on above:Random Glucose Reference Range is dependent on time and content of last meal. Glucose of more than 200 mg/dL in a nonstressed, ambulatory subject supports the diagnosis of Diabetes Mellitus. [facility] CenterRdydkjjtgyHTQFTHS7Qch2: Cleaned MeterNOMS HealthcareGlucose [Mass/Vol]156 mg/dLUTAH STATE HOSPITAL HealthcareComment on above:Random Glucose Reference Range is dependent on time and content of last meal. Glucose of more than 200 mg/dL in a nonstressed, ambulatory subject supports the diagnosis of Diabetes Mellitus. [facility] CenterGlucose Poct Glucometerson 29-97-9092Qgisoah1Hvt1: Cleaned [facility] Physician GroupComment on above:Result Comment: PERFORMED BY: [facility] [address] [place] [address] PATHOLOG[address] PAYMENT ERIC ST M.D.Performed By: #### GLULS ####Point of Care testing,Commemt1 Glu2: Cleaned MeterNormAdventHealth Lake Placid Physician GroupComment on above:Result Comment: PERFORMED BY: [facility] [address] [place] [address] PATHOLOGIST DIRECT[address] PAYMENT ERIC ST M.D.Performed By: #### GLULS ####Point of Care testing,Glucose [Mass/Vol]156 mg/dLCleveland Clinic Indian River Hospital Physician GroupComment on above:Result Comment: Random Glucose Reference Range is dependent on time and content of last meal. Glucose of more than 200 mg/dL in a nonstressed, ambulatory subject supports the diagnosis of Diabetes Mellitus.Performed By: #### GLULS ####Point of Care testing,Oumar 06-02-2025 Specimen: [id number] Received: 06/02/25 Status: QUYNH Wood Num: [id number] Spec Type: Surgical Subm Dr: Juan Ayers DO Tissues: A Thyroid Biopsy (RIGHT SUBSTERNAL THYROID NOD) B THYROID - Lobe (RIGHT SUBSTERNAL THYROID LOB) Procedures: /12, Gross/Micro L5, Gross/Micro L4 Age/ Patient Sex Location Account Attending Physician Shannon Bolaños JR 69/M [place] [id number] Juan Ayers, SPEC NUM: [id number] RECD: 06/02/25 STATUS: QUYNH WOOD NUM: [id number] GAL: 06/02/[address] [facility] [address]: Juan Ayers DO ENTERED: 06/02/[address] [facility] [address]: MARISOL TYPE: Surgical DEPT: S ENTERED BY: [id number] RECV BY: [id number] ORDERED: HE/12, Gross/Micro L5, Gross/Micro L4 ORDERED: [...] in A1?A6 (cassette A1?A2 and A5?A6 Specimen: [id number] Received: 06/02/25 Status: RACHELEder Isis Num: [id number] Spec Type: Surgical Subm Dr: Juan Ayers DO Tissues: A Thyroid Biopsy (RIGHT SUBSTERNAL THYROID NOD) B THYROID - Lobe (RIGHT SUBSTERNAL THYROID LOB) Procedures: , Gross/Micro L5, Gross/Micro L4 Patient: Shannon Bolaños JR [id number] (Continued) Specimen: [id number] Received: 06/02/25 (Continued) Gross Description (Continued) Signed (signature on file) Toney Edwards MD 06/05/25 1407 Specimen: [id number] Received: 06/02/25 Status: QUYNH Wood Num: [id number] Spec Type: Surgical Subm Dr: Juan Ayers DO Tissues: A Thyroid Biopsy (RIGHT SUBSTERNAL THYROID NOD) B THYROID - Lobe (RIGHT SUBSTERNAL THYROID LOB) Procedures: , Gross/Micro L5, Gross/Micro L4 Patient: Shannon Bolaños JR [id number] (Continued) Specimen: [id number] Received: 06/02/25 (Continued) Gross Description (Continued) decalcified in rapid Praful immuno). (6, ns, [id number] A) Part B is received in formalin [...] is red-b (more content not included)...Normal The [facility] Physician GroupNo Panel InformationOrdered By: Juan Ayers on 58-26-5726Piqosub Glucose CommentGlu2: cleaned [facility] - AkronBasic Metabolic Panelon 17-14-1329SCS/1.73 sq M.predicted MDRD (S/P/Bld) [Vol rate/Area]mL/min/{1.73_m2}NormalThe [facility] Regional Physician GroupComment on above:Order Comment: Comment PSTPerformed By: #### [id number], BMP, T3T, TSH3, T4T, PTH #### [facility] [address] [place] [address] USABasophils [#/volume] in Blood by Automated countOrdered By: Juan Ayers on 33-78-0130Toosuligl (Bld) [#/Vol]0.1 10*3/uLNormal0.0-0.2 Genesis HospitalComment on above:Result Comment: PERFORMED BY: [facility] [address] [place] [address] PATHOLOGIST DIRECTOR PAYMENT ERIC ST M.D.Performed By: #### CBC ####[facility] [address] [place] [address] USABasophils/100 leukocytes in Blood by Automated countOrdered By: Juan Ayers on 69-64-4038Pqekayeal/100 WBC (Bld) 1.2 %Normal.Genesis HospitalComment on above:Performed By: #### CBC ####[facility] [address] [place] [address] [facility] CBC W Auto Differential panel (Bld)on 46-59-5795Xlngdjphc (Bld) [#/Vol]0.1 10*3/uL0.0 - 0.2 10*3/uLNOMS HealthcareBasophils/100 WBC Manual cnt (Syn fld)1.2 %.NOMS HealthcareEosinophils (Bld) [#/Vol]0.1 10*3/uL0.0 - 0.45 10*3/uLNOMS HealthcareEosinophils/100 WBC Manual cnt (Syn fld)1.4 %.[facility] Erythrocyte distribution width (RBC) [Ratio]14.6 %12.0 - 14.8 %[facility] Hematocrit (Bld) [Volume fraction]41.4 %38.8 - 50.0 %[facility] HealthcareHemoglobin (Bld) [Mass/Vol]14.6 g/dL13.0 - 17.0 g/dLUTAH STATE HOSPITAL HealthcareLymphocytes (Bld) [#/Vol]1.8 10*3/uL1.00 - 4.8 10*3/uLNOMS HealthcareLymphocytes/100 WBC Manual cnt (Syn fld)23.0 %.[facility] HospitalH (RBC) [Entitic mass]29.7 pg27.5 - 35.2 pg [facility] HospitalHC (RBC) [Mass/Vol]35.4 g/dL32.5 - 35.6 g/dLParkland Health CenterMCV (RBC) [Entitic vol]84.0 fL83.5 - 101 [...] or Plasma Ordered By: Juan Ayers on 16-75-0588Aebjerd [Mass/Vol]9.9 mg/dLNormal 8.6-10.3FProvidence HospitalComment on above:Order Comment: Comment PSTPerformed By: #### [id number], BMP, T3T, TSH3, T4T, PTH #### [facility] [address] [place] [id number] USACarbon dioxide, total [Moles/volume] in Serum or Plasma Ordered By: Juan Ayers on 33-85-6222VO6 [Moles/Vol]29.7 mmol/LNormal 21.0-31.0Genesis HospitalComment on above:Order Comment: Comment PSTPerformed By: #### [id number], BMP, T3T, TSH3, T4T, PTH #### [facility] [address] [place] [address] USAChloride [Moles/volume] in Serum or PlasmaOrdered By: Juan Ayers on 93-72-4311Qveooeuf [Moles/Vol]101 mmol/VIvjvrq82-058KqsrmiowaGenesis HospitalComment on above:Order Comment: Comment PSTPerformed By: #### [id number], BMP, T3T, TSH3, T4T, PTH #### [facility] [address] [place] [id number] USAComplete Blood Count Auto Diffon 24-32-8108Svot Corpuscular HGB Conc35.4 g/sCOxkbtt05.5-35.6The [facility] Physician GroupComment on above:Performed By: #### CBC ####[facility] [place] [address] USANRBC%0.1 /100{WBC}Normal0-0.5The [facility] Physician GroupComment on above:Performed By: #### CBC ####[facility] [place] [address] USAWhite Blood Count7.8 [CFU]/mLNormal 4.1-10.5The [facility] Physician GroupComment on above:Performed By: #### CBC ####[place] [address] [place] Creatinine [Mass/volume] in Serum or PlasmaOrdered By: Juan Ayers on 66-37-9344Gtsnzmiasu [Mass/Vol]0.77 mg/dLNormal0.70-1.30Genesis HospitalComment on above:Order Comment: Comment PSTPerformed By: #### [id number], BMP, T3T, TSH3, T4T, PTH #### [place] [id number] USAECG 12 lead ECGon 83-07-8027VTA 12 lead ECGTRINITY HEALTH SYSTEM [facility] Main [place] [address] [place] [address] Electrocardiograph Report Signed Patient: Shannon Bolaños JR MR#: [id number] : 1955 Acct:[id number] Age/Sex: 69 / M ADM Date: 05/19/25 Loc: PS Room: Type: [facility] Attending Dr: Juan Ayers DO Ordering [...] previous ECGs available Confirmed by DOMINIQUE WYNNE [facility], JENNIE ([id number]) on 05/20/2025 11:29:48 AM Referred By: Electronically Signed By: JENNIE FOX MD [facility] Transcribed By: MUS Signed By Jennie Fox MD, [facility] 05/20/[address] [place] [address] Physician GroupEosinophils [#/volume] in Blood by Automated countOrdered By: Juan Ayers on 85-61-0617Vbsnssqndbb (Bld) [#/Vol]0.1 10*3/uLNormal0.0-0.45Genesis HospitalComment on above:Performed By: #### CBC ####[place] [address] USAEosinophils/100 leukocytes in Blood by Automated countOrdered By: Juan Ayers on 29-04-6762Grbrayrfxlo/100 WBC (Bld)1.4 % Normal.Genesis HospitalComment on above:Performed By: #### CBC ####[address] Erythrocyte distribution width [Ratio] by Automated countOrdered By: Juan Ayers on 74-48-3477Hzzwbvcezjh distribution width (RBC) [Ratio]14.6 %Normal 12.0-14.8Genesis HospitalComment on above:Performed By: #### CBC ####[address] Erythrocytes [#/volume] in Blood by Automated countOrdered By: Juan Ayers on 11-25-4794YJY (Bld) [#/Vol]4.93 10*6/uLNormal3.90-5.60Genesis HospitalComment on above:Performed By: #### CBC ####[facility] [address] [place] [address] USAGlomerular filtration rate [Volume Rate/Area] in Serum, Plasma or Blood by CreatinineOrdered By: Juan Aeyrs on 55-85-9712Ywpbfuqcxb filtration rate [Volume Rate/Area] in Serum, Plasma or Blood by Creatinine> 60.0 mL/MinGenesis Hospital Glucose [Mass/volume] in Serum or PlasmaOrdered By: Juan Ayers on 96-86-7737Cxtjyzl [Mass/Vol]120 mg/vQVdmz11-681AheyyinddGenesis Hospital Comment on above:ADA recommended reference rangeRandom [...] Mellitus. ADA recommended reference rangePerformed By: #### [id number], BMP, T3T, TSH3, T4T, PTH #### [facility] [address] [place] [address] USAHematocrit [Volume Fraction] of Blood by Automated count Ordered By: Juan Ayers on 58-44-1689Ubqykvwkul (Bld) [Volume fraction]41.4 %Seutae45.8-50.0Genesis HospitalComment on above:Performed By: #### CBC ####[facility] [place] [address] USAHemoglobin [Mass/volume] in BloodOrdered By: Juan Ayers on 05-19-2025 Hemoglobin (Bld) [Mass/Vol]14.6 g/mSYgmkvt46.0-17.0Genesis HospitalComment on above:Performed By: #### CBC ####[facility] [place] [address] USALeukocytes [#/volume] corrected for nucleated erythrocytes in Blood by Automated counOrdered By: Juan Ayers on 68-44-8633EON corrected for nucl RBC Auto (Bld) [#/Vol]7.8 10*3/uL4.1-10.5 Genesis HospitalLeukocytes [#/volume] in Blood by Automated countOrdered By: Juan Ayers on 22-85-0166ZCK (Bld) [#/Vol]7.8 10*3/uLNormal 4.1-10.5FProvidence HospitalComment on above:Performed By: #### CBC ####[address] [address] Lymphocytes [#/volume] in Blood by Automated countOrdered By: Juan Ayers on 14-24-5459Hkvtjajyspf (Bld) [#/Vol]1.8 10*3/uLNormal1.00-4.8Genesis HospitalComment on above:Performed By: #### CBC ####[place] [address] USALymphocytes/100 leukocytes in Blood by Automated countOrdered By: Juan Ayers on 04-13-2338Hsodiusgpsu/100 WBC (Bld)23.0 %Normal.Genesis HospitalComment on above: Performed By: #### CBC ####[place] [address] [facility] [Entitic mass] by Automated countOrdered By: Juan Ayers on 91-81-6447ISI (RBC) [Entitic mass]29.7 qsZdsxcb99.5-35.2 Genesis HospitalComment on above:Performed By: #### CBC ####[place] [address] [facility] Auto (RBC) [Mass/Vol]Ordered By: Juan Ayers on 36-89-8588WAVE (RBC) [Mass/Vol]35.4 g/dL32.5-35.6FProvidence HospitalMCV [Entitic volume] by Automated countOrdered By: Juan Ayers on 39-59-2864XIQ (RBC) [Entitic vol]84.0 xKEzstps97.5-101Genesis HospitalComment on above:Performed By: #### CBC ####[address] [address] USAMonocytes [#/volume] in Blood by Automated count Ordered By: Juan Ayers on 56-00-8802Jkrgjgndv (Bld) [#/Vol]0.5 10*3/uL Normal0.0-0.8Genesis HospitalComment on above:Performed By: #### CBC ####[address] [address] USAMonocytes/100 leukocytes in Blood by Automated countOrdered By: Juan Ayers on 76-42-5749Ovavlrlxr/100 WBC (Bld)6.9 %Normal.Genesis HospitalComment on above:Performed By: #### CBC ####[place] [address] USANeutrophils [#/volume] in Blood by Automated countOrdered By: Juan Ayers on 86-68-7877Cibptnitxke (Bld) [#/Vol]5.3 10*3/uLNormal1.8-7.7FProvidence HospitalComment on above:Performed By: #### CBC ####[address] [address] USANeutrophils/100 leukocytes in Blood by Automated countOrdered By: Juan Ayers on 39-19-7037Qjgivrqmidv/100 WBC (Bld)67.5 % Normal.Genesis HospitalComment on above:Performed By: #### CBC ####[address] [address] USANo Panel InformationOrdered By: Juan Ayers on 05-73-4349Zzmpcbst Creatinine Clearance (ChemN/AFProvidence HospitalNucleated erythrocytes [Presence] in Blood by Automated countOrdered By: Juan Ayers on 05-19-2025 Nucleated RBC Auto Ql (Bld)0.1 /100{WBC}0-0.5FProvidence Hospital Parathyrin.intact [Mass/Vol]on 60-44-0169XFLRGBKGPMM HORMONE SXHTJW26.3 pg/mL12 - 88 pg/mLNOMS HealthcareComment PSTFIRELANDSNOMS HealthcareParathyrin.intact [Mass/volume] in Serum or PlasmaOrdered By: Juan Ayers on 05-19-2025 Parathyrin.intact [Mass/Vol]70.3 pg/lE45-93VfqsamwfbGenesis Hospital Parathyroid Hormone Intacton 46-34-5165Aixmmzttaxk Hormone Tcppaa80.3 pg/mL Qyrwzk01-70Jwk [facility] Physician GroupComment on above:Order Comment: Comment PSTResult Comment: PERFORMED BY: [facility] [address] [place] [id number] PATHOLOGIST DIRECTOR PAYMENT ERIC ST M.D.Performed By: #### [id number], BMP, T3T, TSH3, T4T, PTH #### [facility] [address] [place], [place] [address] USAPlatelet mean volume [Entitic volume] in Blood by Automated countOrdered By: Juan Ayers on 23-10-7029Whuwwvoj mean volume (Bld) [Entitic vol]8.3 fLNormal6.6-10.1FProvidence HospitalComment on above:Performed By: #### CBC ####[place] [address] [place] [address] USAPlatelets [#/volume] in Blood by Automated count Ordered By: Juan Ayers on 22-25-8730Avghwhrnk (Bld) [#/Vol]180 10*3/uL Jgubbv798-591XsliwtqtbGenesis HospitalComment on above:Performed By: #### CBC ####[place] [address] USAPotassium [Moles/volume] in Serum or PlasmaOrdered By: Juan Ayers on 67-05-8120Phinffwzm [Moles/Vol]4.0 mmol/LNormal3.5-5.1FProvidence HospitalComment on above:Order Comment: Comment PSTPerformed By: #### VBMB54QI, BMP, T3T, TSH3, T4T, PTH #### [facility] [address] [place], [place] [address] USASerum or plasma anion gap determinationOrdered By: Juan Ayers on 55-75-8821Yqpeq gap [Moles/Vol]11.3 mmol/LNormal6.0-15.0 Genesis HospitalComment on above:Order Comment: Comment PST Performed By: #### NMTU67VA, BMP, T3T, TSH3, T4T, PTH #### [facility] [address] [place] [address] USASodium [Moles/volume] in Serum or PlasmaOrdered By: Juan Ayers on 15-00-0916Gqjmun [Moles/Vol]138 mmol/PZgvibn364-812QrwpvwwybGenesis HospitalComment on above:Order Comment: Comment PSTPerformed By: #### [id number], BMP, T3T, TSH3, T4T, PTH #### [facility] [address] [place] [address] USAThyrotropin [Units/volume] in Serum or PlasmaOrdered By: Juan Ayers on 31-10-5225NZC Qn0.83 m[IU]/LNormal0.45-5.33Genesis HospitalComment on above:Order Comment: Comment PSTPerformed By: #### HRWD24WF, BMP, T3T, TSH3, T4T, PTH ####[facility] [address] [place] [address] USAThyroxine (T4) [Mass/volume] in Serum or Plasma Ordered By: Juan Ayers on 63-25-6969B8 [Mass/Vol]9.35 ug/dLNormal5.39-11.82 Genesis HospitalComment on above:Order Comment: Comment PST Performed By: #### UOLH31CG, BMP, T3T, TSH3, T4T, PTH #### [facility] [address] [place] [address] USATriiodothyronine (T3) Totalon 60-38-9013Gsqplmsqgcwbuign (T3) Total1.18 ng/mLNormal0.87-1.78The [facility] Physician GroupComment on above:Order Comment: Comment PSTPerformed By: #### LSDT52SK, BMP, T3T, TSH3, T4T, PTH ####[facility] [address] [place] [address] USATriiodothyronine (T3) [Mass/volume] in Serum or PlasmaOrdered By: Juan Ayers on 08-55-9081K4 [Mass/Vol]1.18 ng/mL0.87-1.78Genesis HospitalUrea nitrogen [Mass/volume] in Serum or PlasmaOrdered By: Juan Ayers on 94-22-6597Tmuj nitrogen [Mass/Vol]16 mg/dLNormal7-25Genesis HospitalComment on above:Order Comment: Comment PSTPerformed By: #### GKNA28RE, BMP, T3T, TSH3, T4T, PTH #### [facility] [address] [place] [address] USAVitamin D 25 Hydroxy Totalon 96-33-7813Lyronvl D 25 Hydroxy Total31.2 ng/pOMhwwed39-479Nme [facility] Physician GroupComment on above:Order Comment: Comment PSTResult Comment: VITAMIN D STATUS 25(OH)VITAMIN D RANGE (ng/mL) Deficient <20 Insufficient 20 to <30 Sufficient 30 to 100 Reference: Eduardo Portillo, Jayden GONZALES, et al. Evaluation,treatment, and prevention of vitamin D deficiency; an Endocrine Society clinical practice guideline. JCEM. 2010; 96(7):1911-30. PERFORMED BY: [facility] [address] [place] [address] PATHOLOGIST [address] PAYMENT ERIC ST M.D.Performed By: #### UVFT39OD, BMP, T3T, TSH3, T4T, PTH ####[facility] [address] [place] [address] USAVitamin D+Metabolites [Mass/volume] in Serum or PlasmaOrdered By: Juan Ayers on 93-39-1886Jqsubbt D+Metabolites [Mass/Vol]31.2 ng/uK75-084InwffisysGenesis HospitalComment on above:VITAMIN D STATUS 25(OH)VITAMIN D RANGE (ng/mL) Deficient <20 Insufficient 20 to <14Opwfgzhwic17 to 100Reference: Eduardo Portillo, Jayden GONZALES, et al. Evaluation,treatment, and prevention of vitamin D deficiency; an Endocrine Society clinical practice guideline. JCEM. 2010; 96(7):1911-30.CT SOFT TISSUE NECK W IV CONTRASTon 59-21-0589IC SOFT TISSUE NECK W IV CONTRASTCT SOFT [...] BY: Juan Leon MDInvalid Interpretation CodeNot AvailableCortisolon 42-80-0781Otlhdxco1.4 ug/dLNoAtrium Health Cleveland Physician GroupComment on above:Result Comment: Reference range: AM 6 - 24 ug/dl PM <10 ug/dl [facility] panel raiser operator and method: HUONG UNICEL DXI, POLYCLONAL ANTIBODY CORTISOL ASSAY. PERFORMED BY: [address] [address] PATHOLOGIST [address] PAYMENT ERIC ST M.D.Performed By: #### MET FRAC P #### [facility] , #### MISC[facility] LAB, PREETI #### [address] [place] [address] USACortisol [Mass/volume] in Serum or PlasmaOrdered By: Tiff Boo on 81-86-5814Pvdtbjhg [Mass/Vol]1.4 ug/dLGenesis Hospital Comment on above:[facility] panel raiser operator and method:HUONG UNICEL DXI, POLYCLONAL ANTIBODY CORTISOL ASSAY.Reference range: AM 6 - 24 ug/dl PM <10 ug/dlINR in Platelet poor plasma by Coagulation assayOrdered By: Onelia Simon on 19-22-4850JSF Coag (PPP) [Relative time]0.9 {INR}NormalGenesis HospitalComment on above:INR Therapeutic Range A) Pre- [...] heart valves: 3 - 4.5 PERFORMED BY: [place] [id number] PATHOLOGIST DIRECTOR PAYMENT ERIC ST M.D.Performed By: #### PT, PLT ####[facility] [address] [place] [address] USALon 03-28-2025L Specimen: [id number] Received: 03/29/25 Status: QUYNH Wood Num: [id number] Spec Type: Cytology Subm Dr: oMe Carter II, MD Tissues: A FNA SLIDES PATH (RIGHT MID THYROID LOBE) Procedures: -, DIFF QWIK/6, PAPSTN/7 Age/ Patient Sex Location Account Attending Physician Shannon Bolaños JR 69/M [id number] LEO Peterson SPEC NUM: [id number] RECD: 03/29/25 STATUS: QUYNH WOOD NUM: [id number] GAL: 03/28/25- SUBM DR: Moe Carter II, MD ENTERED: 03/29/[address] [facility] [address]: LEO Peterson SPEC TYPE: Cytology DEPT: SHERRY ENTERED BY: [id number] RECV BY: [id number] ORDERED: -, DIFF QWIK/6, PAPSTN/7 ORDERED: -, DIFF QWIK/6, PAPSTN/7 Pathological Diagnosis Right middle thyroid nodule, fine needle aspiration (ThinPrep and Smear Slides): - Inadequate for evaluation due to scant cellularity. - Rare follicular cells and blood, nondiagnostic ([place] Category I). Comment: Recommend clinical and radiologic [...] [id number] Received: 03/29/25 Status: QUYNH Barriosshiv Num: [id number] Spec Type: Cytology Subm Dr: Moe Carter II, MD Tissues: A FNA SLIDES PATH (RIGHT MID THYROID LOBE) Procedures: -, DIFF QWIK/6, PAPSTN/7 Patient: Shannon Bolaños JR [id number] (Continued) Specimen: [id number] Received: 03/29/25 (Continued) Signed (signature on file) Toney Edwards MD 03/29/25 0856 Specimen: [id number] Received: 03/29/25 Status: QUYNH Wood Num: [id number] Spec Type: Cytology Subm Dr: Moe Carter II, MD Tissues: A FNA SLIDES PATH (RIGHT MID THYROID LOBE) Procedures: -, DIFF QWIK/6, PAPSTN/7 Patient: Shannon Bolaños JR [id number] (Continued) Specimen: [id number] Received: 03/29/25 (Continued) Immediate Evaluation On site adequate evaluation: Right Middle Thyroid Nodule, Ultrasound-Guided FNA: -Pass #1 to #3: Blood only (Inadequate). -Pass #4 to #6: Blood only (Inadequate). Toney Edwards MD 04/20/25 11:30 A.M. Microscopic Description Microscopic examination is performed. CPT Codes 57670, 19148, 95273 Specimen: [id number] Received: 03/29/25 Status: QUYNH Wood Num: [id number] Spec Type: Cytology Subm Dr: Moe Carter II, MD Tissues: A FNA SLIDES PATH (RIGHT MID THYROID LOBE) Procedures: -, DIFF QWIK/6, PAPSTN/7 Patient: Shannon Bolaños JR [id number] (Continued) Signed (signature on file) Toney Edwards MD 03/29/25 0856Normal The [facility] Physician GroupMISC2 LABon 88-63-2945SSWE9 LABNormAdventHealth Lake Placid Physician GroupComment on above:Order Comment: Misc 2 Test Name: 1 GOLD AND 1 LAV ALDOSTERONE RENIN RATIO TEST 212452Nkkadt Comment: See report. Scanned copy available in EMR. PERFORMED BY: [place] [address] PATHOLOGIST DIRECTOR PAYMENT ERIC ST M.D.Performed By: #### MET FRAC P #### [facility] , #### MISC2 LAB, PREETI #### [facility] [address] [place], [place] [address] USAMetanephrines, Frac, Pl, Freeon 38-62-8750Qlmohyizlfrkh, P 26.0 pg/mLNormal0.0-88.0The [facility] Physician GroupComment on above:Order Comment: Fasting? (See Test/Proc Notes): YResult Comment: This test was developed and its performance characteristics determined by [facility]. It has not been cleared or approved by the Food and Drug Administration. Performed at: [address] [id number] Visitor Services Specialist: Brown Steele MD, Phone: [phone] PERFORMED BY: [address] [address] PATHOLOGIST DIRECTOR PAYMENT ERIC ST M.D.Performed By: #### MET FRAC P #### [facility] , #### MISC2 LAB, PREETI #### [facility] [address] [place] [address] USANormetanephrine, P95.8 pg/mLNormal0.0-285.2The [facility] Physician GroupComment on above:Order Comment: Fasting? (See Test/Proc Notes): Y Result Comment: This test was developed and its performance characteristics determined by [facility]. It has not been cleared or approved by the Food and Drug Administration.Performed By: #### MET FRAC P #### [facility] , #### MISC2 LAB, PREETI #### [facility] [address] [place] [address] USANo Panel InformationOrdered By: Tiff Boo on 03-28-2025 Miscellaneous Test 2See commentGenesis HospitalComment on above:See report. Scanned copy available in EMR.Platelets [#/volume] in Blood by Automated countOrdered By: Onelia Simon on 72-45-9407Yfautvgsu (Bld) [#/Vol] 191 10*3/wSLtpzkl317-356PowlnppgtGenesis HospitalComment on above:Result Comment: PERFORMED BY: [facility] [address] [place] [address] PATHOLOGIST DIRECTOR PAYMENT ERIC ST M.D.Performed By: #### PT, PLT ####[facility] [address] [place] [address] USAProthrombin time (PT)Ordered By: Onelia Simon on 52-95-5598PL Coag (PPP) [Time]10.1 sNormal9.0-12.9Genesis HospitalComment on above:A hematocrit value greater than 55% may lead to inaccurate results in coagulation testing. Patientshaving hematocrit values >55% require a special collection tube for coagulation studies. Please contact the laboratory at [phone] for redraw instructions.Result Comment: A hematocrit value greater than 55% may lead to inaccurate results in coagulation testing. Patients having hematocrit values >55% require a special collection tube for coagulation studies. Please contact the laboratory at [phone] for redraw instructions.Performed By: #### PT, PLT ####[facility] [address] [place] [address] USASerum or plasma free metanephrine measurement (mass/volume)Ordered By: Tiff Boo on 28-46-4793Ftokvuohqdqr Free [Mass/Vol]26.0 pg/mL0.0-88.0Genesis HospitalComment on above:This test was developed and its performance characteristicsdetermined by [facility]. It has not been cleared orapproved by the Food and Drug Administration.Performed at: BN - [facility] [address] [place], [place] [id number] Director: Brown Steele MD, Phone: [phone] needle aspirationon 03-73-6277DQ needle aspirationTRINITY HEALTH SYSTEM WEST [facility]AMPUS Main [address] [place], [place] [address] Ultrasound Report Signed Patient: Shannon Bolñaos JR MR#: [id number] : 1955 Acct:[id number] Age/Sex: 69 / M ADM Date: 03/28/25 Loc: Room: Type: [facility] Attending Dr: Onelia Simon Ordering [...] Carter M.D. 03/28/2025 1:37 PM Dictation Location: [place] [address] Tech: Alice Gonzalez Transcribed By: ALISSA 03/28/25 1337 Dictated By: Moe Carter II, MD 03/28/25 1324 Signed By: 03/28/25 1337[facility] Physician GroupCT abdomen wo/w conon 03-23-2025 CT abdomen wo/w [facility] Main [place] [address] [place] [address] CT Scan Report Signed Patient: Shannon Bolaños JR MR#: [id number] : 1955 Acct:[id number] Age/Sex: 69 / M ADM Date: 03/23/25 Loc: CT Room: Type: [facility] Attending Dr: Tiff Boo MD Copies to: [...] Jr., D.O. 03/23/2025 1:47 PM Dictation Location: [facility] Transcribed By: [facility] 03/23/25 1347 Dictated By: Bennie Coffman Jr, DO 03/23/25 1344 Signed By: 03/23/25 1347NoAtrium Health Cleveland Physician GroupISTAT XRay CREon 73-86-3677SQDDD GFR>60.0NormalThe Firelands Physician GroupComment on above:Result Comment: PERFORMED BY: [facility] [address] [place] [address] PATHOLOGIST DIRECT[address] PAYMENT ERIC ST M.D.Performed By: #### ISCRE #### [facility] [address] [place] [address] USANo Panel InformationOrdered By: Tiff Boo on 03-23-2025 Bedside Estimated GFR (eGFR)> 60.0Genesis HospitalWhole blood creatinine measurementOrdered By: Tiff Boo on 67-82-1704Wfwpkawewq [Mass/Vol] 0.8 mg/dLNormal0.6-1.3FProvidence HospitalComment on above:ER/ESD physician is notified/shown all ISTAT results.Critical values may be confirmed by laboratorytesting ifdeemed necessary by ER attending doctor.Result Comment: ER/ESD physician is notified/shown all ISTAT results. Critical values may be confirmed by laboratory testing if deemed necessary by ER attending doctor.Performed By: #### ISCRE #### [place] [address] USAUrology Office/Clinic Noteon 77-55-7122Xaegmph Office/Clinic NoteUrology Office/Clinic Note Chief Complaint new patient HPI Staff Pt is a 69 year old male new patient referred by Onelia Simon [employer] for left adrenal mass found on CT [...] yo M new pt referred by Onelia Simon [employer] d/t L adrenal nodule. No personal hx [...] of kidney) CT Ab w/wo con 01/20/25 [facility] - Study limited d/t body habitus. [...] 90 oz fluid daily (add 1/4 cup lemon/[place] daily) -Diet mods (more fruits/veg, limit animal [...] pending adrenal workup Pa (more content not included)...[facility]ike Community HospitalComment on above:Result Comment: Electronically Signed By: America Arriaga\.br\Date and Time Signed: 03/08/25 12:55 EDT\.br\Electronically Co-Signed By: Tiff Boo MD\.br\Date and Time Co-Signed: 03/09/25 14:36 EDTCT ABDOMEN WO/W CONon 38-46-0649[address] [place] [address] CT Scan Report Signed Patient: SHANNON BOLAÑOS MR#: [id number] : 1955 Acct:[id number] Age/Sex: 69 / M ADM Date: 01/20/25 Loc: CT Attending Dr: Onelia Simon NP Ordering Physician: Onelia Simon NP Date of Service: 01/20/25 Procedure(s): CT abdomen wo/w con Accession Number(s): [id number] cc: Onelia Simon NP [address] [address] Patient Name: SHANNON BOLAÑOS MRN: [id number] date: 1955 Sex: M Assigned Patient Location: CT Current Patient Location: CT Accession/Order Number: [id number] Exam Date: 01/20/2025 09:25 Report Date: 01/20/2025 [...] There is no dilated small bowel loops pwqlq-oy-eegh. There is stool within the colon. Subtle [...] Maurice M.D. 01/20/2025 9:43 AM Dictation Location: [place] [address] Electronically authenticated by: [id number] Y Date: 01/20/2025 09:43 Dictated By: Krystal Maurice M.D. Signed By: 01/20/25945 DD/ 2 TD/TT: Reclaimer:TBHRadiology, Radiologist, - 01/20/2025 [place] [address] CT Scan Report Signed Patient: SHANNON BOLAÑOS MR#: [id number] : 1955 Acct:[id number] Age/Sex: 69 / M ADM Date: 01/20/25 Loc: CT Attending Dr: Onelia Simon NP Ordering Physician: Onelia Simon NP Date of Service: 01/20/25 Procedure(s): CT abdomen wo/w con Accession Number(s): [id number] cc: Onelia Simon NP The [place] [address] Patient Name: SHANNON BOLAÑOS MRN: [id number] date: 1955 Sex: M Assigned Patient Location: CT Current Patient Location: CT Accession/Order Number: [id number] Exam Date: 01/20/2025 09:25 Report Date: 01/20/2025 [...] There is no dilated small bowel loops inbte-be-pbau. There is stool within the colon. Subtle levoscoliotic curvature and degenerative changes are present at the spine. CT/CT abdomen wo/w con IMPRESSION: LEFT ADRENAL NODULE, NOT FULLY EVALUATED DUE TO TECHNIQUE PERFORMED, HOWEVER ADENOMA IS FAVORED. LONG PATIENT HAS NO KNOWN HISTORY OF MALIGNANCY, FOLLOW-UP COULD BE OBTAINED TO ASSURE STABILITY. FATTY LIVER. RIGHT NEPHROLITHIASIS. Impression dictated by: Krystal Mauirce M.D. 01/20/2025 9:43 AM Dictation Location: [place] [address] Electronically authenticated by: [id number] Y Date: 01/20/2025 09:43 Dictated By: Krystal Maurice M.D. Signed By: 01/20/2546 DD/ 2 TD/TT: Reclaimer: KATHLEEN HealthcareRadiology Study observation (narrative)NOM HealthcareCT ABDOMEN WO/W CONOrdered By: Radiologist Radiology on 93-44-5048KBZB Healthcare Work Phone: [place] Thyroid glandon [phone] [address] Ultrasound Report Signed Patient: SHANNON BOLAÑOS MR#: [id number] : 1955 Acct:[id number] Age/Sex: 69 / M ADM Date: 01/20/25 Loc: CT Attending Dr: Onelia Simon NP Ordering Physician: Onelia Simon NP Date of Service: 01/20/25 Procedure(s): US thyroid Accession Number(s): [id number] cc: Onelia Simon NP [place] [address] Patient Name: SHANNON BOLAÑOS MRN: [id number] date: 1955 Sex: M Assigned Patient Location: CT Current Patient Location: CT Accession/Order Number: [id number] Exam Date: 01/20/2025 09:20 Report Date: 01/20/2025 [...] Maurice M.D. 01/20/2025 9:25 AM Dictation Location: [place] [address] Electronically authenticated by: [id number] Y Date: 01/20/2025 09:25 Dictated By: Krystal Maurice M.D. Signed By: 01/20/25926 DD/ 4 TD/TT: Reclaimer:LESLIHRadiology, Radiologist, - 01/20/[address] [address] Ultrasound Report Signed Patient: SHANNON BOLAÑOS MR#: [id number] : 1955 Acct:[id number] Age/Sex: 69 / M ADM Date: 01/20/25 Loc: CT Attending Dr: Onelia Simon NP Ordering Physician: Onelia Simon NP Date of Service: 01/20/25 Procedure(s): US thyroid Accession Number(s): [id number] cc: Onelia Simon NP [place] [id number] Patient Name: SHANNON BOLAÑOS MRN: [id number] date: 1955 Sex: M Assigned Patient Location: CT Current Patient Location: CT Accession/Order Number: [id number] Exam Date: 01/20/2025 09:20 Report Date: 01/20/2025 [...] Maurice M.D. 01/20/2025 9:25 AM Dictation Location: [place] [address] Electronically authenticated by: [id number] Y Date: 01/20/2025 09:25 Dictated By: Krystal Maurice M.D. Signed By: 01/20/25926 DD/ 4 TD/TT: Reclaimer: KATHLEEN AparicioRadiology Study observation (narrative)KATHLEEN AparicioUS Thyroid glandOrdered By: Radiologist Radiology on 67-45-7620G[facility]E [facility] Work Phone: rt PULMONARY FUNCTION TESTon 53-38-1816ThiSteven [place] [id number] Respiratory Report Signed Patient: SHANNON BOLAÑOS MR#: [id number] : 1955 Acct:[id number] Age/Sex: 69 / M ADM Date: 01/17/25 Loc: CT Attending Dr: Onelia Simon [employer] Ordering Physician: Onelia Simon NP Date of Service: 01/17/25 Procedure(s): RT pulmonary function test Accession Number(s): [id number] cc: [facility] Test Date: 2025-01-17 Pat Name: SHANNON BOLAÑOS Department: Room: - Gender: Male Motion Picture Camera Operator: Clementine Moss RRT : 1955 Requested By: ONELIA SIMON Order Number: [id number] Reading MD: Ishan Hurst Interpretive Statements Pulmonary [...] Signed By: 01/19/25 1542 DD/ 0 TD/TT: Reclaimer:LESLIHRadiology, Radiologist, - 01/19/2025 [place] [address] Respiratory Report Signed Patient: SHANNON BOLAÑOS MR#: [id number] : 1955 Acct:[id number] Age/Sex: 69 / M ADM Date: 01/17/25 Loc: CT Attending Dr: Onelia Simon NP Ordering Physician: Onelia Simon NP Date of Service: 01/17/25 Procedure(s): RT pulmonary function test Accession Number(s): [id number] cc: [facility] Test Date: 2025-01-17 Pat Name: SHANNON BOLAÑOS Department: Room: - Gender: Male Motion Picture Camera Operator: Clementine Moss RRT : 1955 Requested By: ONELIA SIMON Order Number: [id number] Reading MD: Ishan Hurst Interpretive Statements Pulmonary [...] Signed By: 01/19/25 1542 DD/ 0811 TD/TT: Reclaimer: KATHLEEN Perez PULMONARY FUNCTION TESTOrdered By: Radiologist Radiology on 34-39-1335PSPY Ganjiwang Work Phone: aLL HEMOGLOBINon 46-44-9078Meontytsdo (Bld) [Mass/Vol] 15.3 g/dL14.0 - 18.0 g/dLUTAH STATE HOSPITAL HealthcareCLINISYNCNOMS HealthcareCT CHEST W CONTRASTon 81-26-0791FqySteven Ville [address] CT Scan Report Signed Patient: SHANNON BOLAÑOS MR#: [id number] : 1955 Acct:[id number] Age/Sex: 69 / M ADM Date: 01/17/25 Loc: CT Attending Dr: Onelia Simon NP Ordering Physician: Onelia Simon NP Date of Service: 01/17/25 Procedure(s): CT chest w con Accession Number(s): [id number] cc: Onelia Simon NP [address] [address] Patient Name: SHANNON BOLAÑOS MRN: [id number] date: 1955 Sex: M Assigned Patient Location: CT Current Patient Location: CT Accession/Order Number: [id number] Exam Date: 01/17/2025 09:11 Report Date: 01/17/2025 [...] Maurice M.D. 01/17/2025 9:19 AM Dictation Location: [place] [address] Electronically authenticated by: [id number] Y Date: 01/17/2025 09:19 Dictated By: Krystal Maurice M.D. Signed By: 01/17/25920 DD/ 8 TD/TT: Reclaimer:TBHRadiology, Radiologist, - 01/17/2025 [place] [address] CT Scan Report Signed Patient: SHANNON BOLAÑOS MR#: [id number] : 1955 Acct:[id number] Age/Sex: 69 / M ADM Date: 01/17/25 Loc: CT Attending Dr: Onelia Simon NP Ordering Physician: Onelia Simon NP Date of Service: 01/17/25 Procedure(s): CT chest w con Accession Number(s): [id number] cc: Onelia Simon NP [place] [address] Patient Name: SHANNON BOLAÑOS MRN: [id number] date: 1955 Sex: M Assigned Patient Location: CT Current Patient Location: CT Accession/Order Number: [id number] Exam Date: 01/17/2025 09:11 Report Date: 01/17/2025 [...] Maurice M.D. 01/17/2025 9:19 AM Dictation Location: [place] [address] Electronically authenticated by: [id number] Y Date: 01/17/2025 09:19 Dictated By: Krystal Maurice M.D. Signed By: 01/17/25920 DD/ 8 TD/TT: Reclaimer: [facility] CENTERKate [facility] Clinic FoundationRadiology Study observation (narrative)[facility] CenterCT CHEST W CONTRASTOrdered By: Radiologist Radiology on 66-47-6175JTITParkland Health Center Work Phone: rt PULMONARY FUNCTION TESTon 59-52-8762Nbyndpzct Study observation (narrative)[facility] Health CenterCA ECHO DOPPLER COMPLETEon 98-74-0210IddSaint [place] [address] Cardiology Report Signed Patient: SHANNON BOLAÑOS MR#: [id number] : 1955 Acct:[id number] Age/Sex: 69 / M ADM Date: 01/04/25 Loc: CARD Attending Dr: Onelia Simon NP Ordering Physician: Onelia Simon NP Date of Service: 01/04/25 Procedure(s): CA echo doppler complete Accession Number(s): [id number] cc: Onelia Simon NP Patient Name: SHANNON BOLAÑOS MR#: [id number] : 1955 Exam Date: 01/04/2025 Ordering Doctor: [...] Pressure: 57.37 ml, 57.37 ml Dictated by: Canidce Webb M.D. on 01/04/2025 at 17:53 Approved by: Candice Webb M.D. on 01/04/2025 at 18:00 Dictated By: CANDICE WEBB Signed By: 01/04/25 1802 (more content not included)...TBHRadiology, Radiologist, - 01/04/2025 [place] [address] Cardiology Report Signed Patient: SHANNON BOLAÑOS MR#: [id number] : 1955 Acct:[id number] Age/Sex: 69 / M ADM Date: 01/04/25 Loc: CARD Attending Dr: Onelia Simon NP Ordering Physician: Onelia Simon NP Date of Service: 01/04/25 Procedure(s): CA echo doppler complete Accession Number(s): [id number] cc: Onelia Simon NP Patient Name: SHANNON BOLAÑOS MR#: [id number] : 1955 Exam Date: 01/04/2025 Ordering Doctor: BASIM SIMON WAISTLINE JOINER ECHOCARDIOGRAM REPORT PROCEDURE: CA ECHO DOPPLER COMPLETE [...] Signed By: 01/04/25 1802 DD/ 1800 TD/TT: Reclaimer: [facility] CenterRadiology Study observation (narrative)[facility] ECHO DOPPLER COMPLETEOrdered By: Radiologist Radiology on 78-09-3087QFTSParkland Health Center Work Phone: TB VITAMIN D 25 OHon 16-05-6377LMGFVAX D27.9 ng/mL [facility] Health CenterComment on above:<20 ng/mL Vit D deficient 20-<30 ng/mL Vit D insufficient 30-100 ng/mL Vit D sufficient >100 ng/mL Potential Toxicity CLINISYNCNODE HealthcareALL BASIC METABOLIC PANELon 06-36-5691Bakue gap [Moles/Vol]15.6 mmol/LNOMS HealthcareCalcium [Mass/Vol]10.2 mg/dLHigh8.5 - 10.1 mg/dLNODE HealthcareChloride [Moles/Vol]98 mmol/L98 - 107 mmol/LNOMS Healthcare CO2 [Moles/Vol]29.9 mmol/L21.0 - 32.0 mmol/LNOMS HealthcareCreatinine [Mass/Vol] 0.85 mg/dL0.70 - 1.30 mg/dLNOMS HealthcareGFR/1.73 sq M.predicted CKD-EPI (S/P/Bld) [Vol rate/Area]>60>=60 mL/min/1.73m 2NOMS HealthcareGlucose [Mass/Vol] 177 mg/jMLalg65 - 106 mg/dLNODE HealthcareInterpretation and review of laboratory resultsAbYale New Haven Psychiatric Hospital HealthcarePotassium [Moles/Vol]4.5 mmol/L3.5 - 5.1 mmol/LNOMS HealthcareSodium [Moles/Vol]139 mmol/L136 - 145 mmol/LNOMS HealthcareTBH EGFR-NON AF GREEN[place]>60>=60 mL/min/1.73m 2NOMS HealthcareUrea nitrogen [Mass/Vol]16 mg/dL7.0 - 18.0 mg/dLNODE HealthcareUrea nitrogen/Creatinine [Mass ratio]18.8 mg/mgNODE HealthcareCLINISYNCNINTEGRIS [facility] [place] MbhplzhxrfGjW9h (Bld) [Mass fraction]on 23-56-9738Xdxjlelyoidhwh and review of laboratory resultsAbSheridan Community Hospital HealthcareLaboratory - Hematology and Cell countson 20-29-0272UbP5e (Bld) [Mass fraction]7 %[facility] HealthcareGlucose Glucometer (BldC) [Mass/Vol]Ordered By: Van Trinh on 97-94-0875Lusqiov [Mass/Vol]190 mg/dLGenesis HospitalComment on above:Random Glucose Reference Range is dependent on time and content of last meal. Glucose of more than 200 mg/dL in a nonstressed, ambulatory subject supports the diagnosis of Diabetes Mellitus.No Panel InformationOrdered By: Van Trinh on 27-65-4339Qhoirif Glucose CommentGlu2: cleaned [facility] Hospital - AkronNM ALEJANDRO PERF SPECT REST STRon 09-42-5040XihSaint [place] [address] Nuclear Medicine Report Signed Patient: SHANNON BOLAÑOS MR#: [id number] : 1955 Acct:[id number] Age/Sex: 68 / M ADM Date: 10/05/23 Loc: [place] Attending Dr: Shaikh Leanna Holt Ordering Physician: Shaikh Yanet Ram Date of Service: 10/05/23 Procedure(s): NM alejandro perf SPECT rest str Accession Number(s): [id number] cc: Shaikh Yanet Ram Patient Name: SHANNON BOLAÑOS MR#: [id number] : 1955 Exam Date: 10/05/2023 Ordering Doctor: [...] M.D. Signed By: 10/08/2333 DD/ 1 TD/TT: Reclaimer:LESLIHRadiology, Radiologist, - 10/08/2023 [place] [address] Nuclear Medicine Report Signed Patient: SHANNON BOLAÑOS MR#: [id number] : 1955 Acct:[id number] Age/Sex: 68 / M ADM Date: 10/05/23 Loc: [place] Attending Dr: Shaikh Leanna Holt Ordering Physician: Shaikh Yanet Ram Date of Service: 10/05/23 Procedure(s): NM alejandro perf SPECT rest str Accession Number(s): [id number] cc: Shaikh Yanet Ram Patient Name: SHANNON BOLAÑOS MR#: [id number] : 1955 Exam Date: 10/05/2023 Ordering Doctor: [...] M.D. Signed By: 10/08/23932 DD/ 1 TD/TT: Reclaimer: KATHLEEN AparicioRadiology Study observation (narrative)KATHLEEN HealthcareNM ALEJANDRO PERF SPECT REST STROrdered By: Radiologist Radiology on 87-24-5411XSBR [facility] Work Phone: ecg 12-LEADon 34-91-2257DfaSaint [place] [address] Electrocardiograph Report Signed Patient: SHANNON BOLAÑOS MR#: [id number] : 1955 Acct:[id number] Age/Sex: 68 / M ADM Date: 08/28/23 Loc: CARD Attending Dr: Shaikh Leanna Holt Ordering Physician: Shaikh Yanet Ram Date of Service: 08/28/23 Procedure(s): ECG 12 lead Accession Number(s): [id number] cc: [facility] Test Date: 2023 Pat Name: SHANNON BOLAÑOS Department: Room: - Gender: Male Motion Picture Camera Operator: : 1955 Requested By: SHAIKH LEANNA Order Number: [id number] Reading MD: JUAN MOMIN Measurements Intervals Crump Rate: 89 P: 51 NC: 159 QRS: 47 QRSD: 111 T: 47 QT: 337 QTc: 411 Interpretive Statements SINUS RHYTHM LOW QRS VOLTAGE IN PRECORDIAL LEADS [QRS DEFLECTION < 1.0 mV IN CHEST LEADS] MODERATE INTRAVENTRICULAR CONDUCTION DELAY [110+ ms QRS DURATION] No previous ECG available for comparison Electronically Signed On 08-29-2023 7:11:01 EST by JUAN MOMIN Dictated By: Juan Momin D.O. Signed By: 08/29/2371008/29/23710 DD/ 7 TD/TT: Reclaimer:ARMANDOadiologJesus Manuel ahuja MD - 08/29/2023 The [place] [id number] Electrocardiograph Report Signed Patient: SHANNON BOLAÑOS MR#: [id number] : 1955 Acct:[id number] Age/Sex: 68 / M ADM Date: 08/28/23 Loc: CARD Attending Dr: Shaikh Leanna Holt Ordering Physician: Shaikh Yanet Ram Date of Service: 08/28/23 Procedure(s): ECG 12 lead Accession Number(s): [id number] cc: [facility] Test Date: 2023 Pat Name: SHANNON BOLAÑOS Department: Room: - Gender: Male Motion Picture Camera Operator: : 1955 Requested By: SHAIKH LEANNA Order Number: [id number] Reading MD: JUAN MOMIN Measurements Intervals Crump Rate: 89 P: 51 NC: 159 QRS: 47 QRSD: 111 T: 47 [...] Signed By: 08/29/23 0708/29/23710 DD/ 7 TD/TT: Reclaimer: KATHLEEN Nicolas 12-LEADOrdered By: Radiologist Radiology on 58-78-3774HMQQ Ganjiwang Work Phone: ECG 12-LEADon 23-77-5457Rzprkgoha Study observation (narrative)[facility] AUTO DIFFon 20-80-2468VLYQ #0.1 103/ulNormal 0.0-0.1[facility] HospitalComment on above:Performed By: #### CBC #### [facility] [address] [place] [address] Dr. Brandon Rosephils/100 WBC (Bld)0.8 %Normal0.2-2.0[facility] Comment on above:Performed By: #### CBC #### [facility] [address] [place] [address] Dr. Brandon Robins #0.1 103/ulNormal0.0-0.7The [facility] Community HospitalComment on above: Performed By: #### CBC #### [facility] [address] [place] [address] Dr. Brandon Crumosinophils/100 WBC (Bld)1.7 %Normal0.9-7.0The [facility] Comment on above:Performed By: #### CBC #### [facility] [address] [place] [address] Dr. Brandon Crumrythrocyte distribution width (RBC) [Ratio]14.0 %Lasjvl75.0-15.0 The [facility] HospitalComment on above:Performed By: #### CBC #### [facility] [address] [place] [address] Dr. Brandon GilmoreHematocrit (Bld) [Volume fraction]42.7 %Vvyxkq46.0-54.0The [facility] HospitalComment on above:Performed By: #### CBC #### [facility] [address] [place] [address] Dr. Brandon GilmoreHemoglobin (Bld) [Mass/Vol]14.9 g/vQYfxilv91.0-18.0The [facility] Hospitalment on above:Performed By: #### CBC #### [facility] [address] [place] [address] Dr. Brandon Canales #0.02 10e3/ulNormal0.00-0.03The [facility] HospitalComment on above:Performed By: #### CBC #### [facility] [address] [place] [address] Dr. Brandon Canales %0.3 %Normal0.0-0.5The [facility] HospitalComment on above: Performed By: #### CBC #### [facility] [address] [place] [address] Dr. Brandon Joshua #1.9 103/ulNormal1.2-3.8The [facility] HospitalComment on above:Performed By: #### CBC #### [facility] [address] [place] [address] Dr. Brandon Cormiermphocytes/100 WBC (Bld)25.0 %Njdqok33.5-60.0The [facility] HospitalComment on above:Performed By: #### CBC #### [facility] [facility] [address] [place] [address] Dr. Brandon JensenUAL DIFF REQNONormalThe [facility] HospitalComment on above: Performed By: #### CBC #### [facility] [address] [place] [address] Dr. Brandon Rivera (RBC) [Entitic mass]29.1 kkPjfsan24.9-34.0The [facility] HospitalComment on above:Performed By: #### CBC #### [facility] [address] [place] [address] Dr. Brandon Rivera (RBC) [Mass/Vol]34.9 g/gSZyrxib75.9-35.2The [facility] HospitalComment on above:Performed By: #### CBC #### [facility] [address] [place] [address] Dr. Brandon Rivera (RBC) [Entitic vol]83.4 cVJhobnn70.0-94.0The [facility] HospitalComment on above:Performed By: #### CBC #### [facility] [address] [place] [address] Dr. Brandon Carrero #0.5 103/ulNormal0.3-0.8The [facility] HospitalComment on above:Performed By: #### CBC #### [facility] [address] [place] [address] Dr. Brandon Gasparocytes/100 WBC (Bld)6.1 %Normal1.7-12.0The [facility] Comment on above:Performed By: #### CBC #### [facility] [address] [place] [address] Dr. Brandon Monahan #5.1 103/ulNormal1.4-6.5The [facility] HospitalComment on above:Performed By: #### CBC #### [facility] [address] [address] [address] Brandon GilmoreNeutrophils/100 WBC (Bld)66.1 %Hyvosu72.0-75.0[facility] on above:Performed By: #### CBC #### [facility] [address] [address] [address] Brandon GilmorePlatelet mean volume (Bld) [Entitic vol]9.7 fLNormal9.5-13.5The [facility] on above:Performed By: #### CBC #### [facility] [address] [place] [address] Dr. Brandon GilmorePLT195 103/vaKdfjrq393-339Ntt [facility] on above: Performed By: #### CBC #### [facility] [address] [place] [address] Dr. Brandon GilmoreRBC5.12 106/ulNormal4.70-6.10The [facility] on above:Performed By: #### CBC #### [facility] [address] [place] [address] Dr. Brandon GilmoreWBC7.7 103/ulNormal4.0-11.0The [facility] on above: Performed By: #### CBC #### [facility] [address] [place] [address] Dr. Brandon GilmoreGLYCOHEMOGLOBIN A1Con [id number] RECOMMENDATIONSEE BELOWNormpa The [facility] on above:Result Comment: ADA RECOMMENDED LIMIT 4.0 - 6.0 ADA THERAPEUTIC TARGET < 7.0 ACTION SUGGESTED > 7.0Performed By: #### A1C #### [facility] [address] [place] [address] Dr. Brandon GilmoreGlucose [Mass/Vol]137 mg/dLNormalThSt. Elizabeth Hospital on above:Performed By: #### A1C #### [facility] [address] [place] [address] Dr. Brandon GilmoreHbA1c (Bld) [Mass fraction]6.4 %Critically high4.5-6.2[facility] HospitalComment on above:Performed By: #### A1C #### [facility] [address] [address] [address] Brandon CrouchID PROFILEon [id number]-HDL RATIO NORMSRiverview Health Institute on above:Result Comment: 3.3 - 4.4 LOW RISK 4.4 - 7.1 AVERAGE RISK 7.1 - 11.0 MODERATE RISK >11.0 HIGH RISKPerformed By: #### LIPID, CMP #### [facility] [address] [address] [address] Brandon GilmoreCholesterol [Mass/Vol]196 mg/dLNormal<=200The [facility] Comment on above:Performed By: #### LIPID, CMP #### [facility] [address] [address] [address] Brandon GilmoreCholesterol in HDL [Mass/Vol]48 mg/mGIlgsuy65-88Xiq [facility] HospitalComment on above:Performed By: #### LIPID, CMP #### [facility] [address] [address] [address] Brandon GilmoreCholesterol in LDL [Mass/Vol]101.8 mg/dLMartin Memorial HospitalComc.s. [facility] on above:Performed By: #### LIPID, CMP #### [facility] [address] [address] [address] Brandon GilmoreCholesterlatasha.total/Cholesterol in HDL [Mass ratio]4.1 {ratio} NormalThe [facility] HospitalComment on above:Performed By: #### LIPID, CMP #### [facility] [address] [address] [address] rBandon GilmoreHDL NORMAL> or = 60 mg/dl - LOW CARDIOVASCULAR RISK <40 mg/dl - HIGH CARDIOVASCULAR RISKMartin Memorial HospitalComc.s. [facility] on above:Performed By: #### LIPID, CMP #### [facility] [address] [address] [address] Brandon GilmoreLDL CALC NORMALSEE [facility] HospitalComment on above:Result Comment: <100 mg/dl OPTIMAL 100 - 129 mg/dl NEAR OR ABOVE OPTIMAL 130 - 159 mg/dl BORDERLINE HIGH 160 - 189 mg/dl HIGH >190 mg/dl VERY HIGH Performed By: #### LIPID, CMP #### [facility] [address] [place] [address] Dr. Brandon GilmoreTriglyceride [Mass/Vol]231 mg/dLCritically high<=150The [facility] HospitalComment on above:Performed By: #### LIPID, CMP #### [facility] [address] [place] [address] Dr. Brandon GilmoreVLDL CALC46.2 mg/dLMartin Memorial HospitalComment on above: Performed By: #### LIPID, CMP #### [facility] [address] [place] [address] Dr. Brandon HernandezROALB CREAT RATIO RANDOMon 90-14-4517aWYB5.7 mg/LNormal<=30.0 The [facility] HospitalComment on above:Performed By: #### MCRR #### [facility] [address] [place] [address] Dr. Brandon Briseno CR RATIO20.6 mg/gNormal0.0-29.9The [facility] HospitalComment on above:Performed By: #### MCRR #### [facility] [address] [place] [address] Dr. Brandon Briseno CR RATIO RANGESEE BELOWNoPomerene HospitalComment on above:Result Comment: NO MICROALBUMINURIA 0-29 MG/G CLINICAL MICROALBUMINURIA 30-300 MG/G MACROALBUMINURIA >300 MG/GPerformed By: #### MCRR #### [facility] [address] [place] [address] Dr. Brandon Sena CREAT82.51 mg/tIMcibnw16.00-300.00[facility] Comment on above:Performed By: #### MCRR #### [facility] [address] [place] [address] Dr. Brandon Ennis 14(COMP METB)on 14-15-8506Xuswppm [Mass/Vol]4.0 g/dLNormal 3.4-5.0The [facility] HospitalComment on above:Performed By: #### LIPID, CMP #### [facility] [address] [address] [address] Brandon GilmoreAlbumin/Globulin [Mass ratio]1.2 {ratio}NormalThe [facility] HospitalComment on above:Performed By: #### LIPID, CMP #### [facility] [address] [address] [address] Brandon Williamson [Catalytic activity/Vol]90 U/BOeezzb51-782Edx [facility] HospitalComment on above:Performed By: #### LIPID, CMP #### [facility] [address] [address] [address] Brandon Marcos [Catalytic activity/Vol]25 U/SMcvuwg77-09Zox [facility] HospitalComment on above:Performed By: #### LIPID, CMP #### [facility] [address] [address] [address] Brandon Crews gap [Moles/Vol]10.9 mmol/LNormalThe [facility] Comment on above:Performed By: #### LIPID, CMP #### [facility] [address] [address] [address] Brandon Sánchez [Catalytic activity/Vol]17 U/CBjouzo85-50Usu [facility] on above:Performed By: #### LIPID, CMP #### [facility] [address] [address] [address] Brandon GilmoreBilirubin [Mass/Vol]0.4 mg/dLNormal0.2-1.0The [facility] Comment on above:Performed By: #### LIPID, CMP #### [facility] [address] [address] [address] Brandon GilmoreCalcium [Mass/Vol]10.1 mg/dLNormal8.5-10.1The [facility] Comment on above:Performed By: #### LIPID, CMP #### [facility] [address] [address] [address] Brandon GilmoreChloride [Moles/Vol]106 mmol/FVeqbte48-860WdlCleveland Clinic Hillcrest Hospital Comment on above:Performed By: #### LIPID, CMP #### [facility] [address] [address] [address] Brandon GilmoreCO2 [Moles/Vol]29.4 mmol/FWxtize45.0-32.0The [facility] Comment on above:Performed By: #### LIPID, CMP #### [facility] [address] [address] [address] Brandon GilmoreCreatinine [Mass/Vol]0.78 mg/dLNormal0.70-1.30The [facility] HospitalComment on above:Performed By: #### LIPID, CMP #### [facility] [address] [place] [address] Dr. Brandon CrumGFR-AF GREENLANDIC>60Normal>=60The [facility] HospitalComment on above:Performed By: #### LIPID, CMP #### [facility] [address] [place] [address] Dr. Brandno CrumGFR-NON AF GREENLANDIC>60Normal>=60The [facility] HospitalComment on above:Performed By: #### LIPID, CMP #### [facility] [address] [place] [address] Dr. Brandon GilmoreGlobulin (S) [Mass/Vol]3.3 g/dLNormalThe [facility] HospitalComment on above:Performed By: #### LIPID, CMP #### [facility] [address] [place] [address] Dr. Brandon GilmoreGlucose [Mass/Vol]213 mg/dLCritically nlgl16-340UflCleveland Clinic Hillcrest HospitalComment on above:Performed By: #### LIPID, CMP #### [facility] [address] [place] [address] Dr. Brandon GilmorePotassium [Moles/Vol]4.3 mmol/LNormal3.5-5.1The [facility] Comment on above:Performed By: #### LIPID, CMP #### [facility] [address] [place] [address] Dr. Brandon GilmoreProtein [Mass/Vol]7.3 g/dLNormal6.4-8.2[facility] Comment on above:Performed By: #### LIPID, CMP #### [facility] [address] [address] [address] Brandon Almonteum [Moles/Vol]142 mmol/PBpbdbj947-530Vzs [facility] Comment on above:Performed By: #### LIPID, CMP #### [facility] [address] [address] [address] Brandon Joseph nitrogen [Mass/Vol]14.0 mg/dLNormal7.0-18.0The [facility] HospitalComment on above:Performed By: #### LIPID, CMP #### [facility] [address] [place] [address] Dr. Brandon Joseph nitrogen/Creatinine [Mass ratio]17.9 mg/mgNormalThe [facility] HospitalComment on above:Performed By: #### LIPID, CMP #### [facility] [address] [place] [address] Dr. Brandon Catalan Fluon 73-38-2465CIQRJ Ab CF (S) [Titer]NegativeA[employer] Other FLUBV Ab CF (S) [Titer]NegativeAthena [employer] Systems Other Vital Signs Date TimeVital SignValuePerforming TtvfaykapOrayznlp86-10-1404 13:06-0500 Respiratory rate16 /[facility]11-07-2025 13:06-0500 SaO2% (BldA) [Mass fraction]92 %[facility]11-07-2025 12:03-0500Diastolic blood fgizdzow60 mm[Hg][facility] 06-02-2025 12:03-0500Heart rate92 /[facility] 06-02-2025 12:03-0500Inhaled oxygen flow rate1 L/[facility]11-07-2025 12:03-0500Systolic blood yxjozowt010 mm[Hg][facility]11-07-2025 10:05-0500Body omkvxehevpw42.7 [degF][facility]11-07-2025 06:36-0500Body .64 cmGen[facility]11-07-2025 06:36-0500Body qxyxxa134.9 [facility]10-20-2025 14:30-0400Body .6 cmBenjamin Murcek DO Work Phone: [phone] [place], [place] [address]Kxmcpnuvjx85-24-6513 14:30-0400Body mass index (BMI) [Ratio]51.65 kg/n8Zqqrstno Murcek DO Work Phone: [phone]10-20-2025 14:30-0400Body pskojh003.15 kgBenjamin Murcek DO Work Phone: [phone] [place], [place] [address]Twfchdpjrp93-63-4938 14:46-0400Body nztovs817.6 cmBenjamin Murcek DO Work Phone: [phone])[facility] [place], [place] [address]Whvbbbmssc37-83-3532 14:46-0400Body mass index (BMI) [Ratio]51.65 kg/f0Dqaaqkxk Murcek DO Work Phone: [phone] [place], [place] [address]Kxzhpytwfj98-52-4661 14:46-0400Body ouvdfo836.15 kgBenjamin Murcek DO Work Phone: [phone] [place], [place] [address]Yqqumxoftr78-52-6693 10:57-0400Diastolic blood oxynuiah36 mm[Hg][facility]09-02-2025 10:57-0400Heart rate95 /[facility]09-02-2025 10:57-0400Respiratory rate18 /[facility]09-02-2025 10:57-6144UiB8% (BldA) [Mass fraction]93 %[facility]09-02-2025 10:57-0400 Systolic blood sjgvqluy732 mm[Hg][facility]09-02-2025 08:57-0400Body frwakk526.64 cmGen[facility] Hospital09-02-2025 08:57-0400Body ewgchr922.14 [facility]07-30-2025 09:47-0400Body mass index (BMI) [Ratio]50.71 kg/m2Lisa Geovannaholz [employer] Work Phone: [facility] CenterSxcwsvdgvb93-91-0235 09:47-0400Body temperature 98.49 [degF]Onelia Geovannaholz [employer] Work Phone: [facility] CenterHlmxggvkup13-36-1899 09:47-0400Body ubfpbo975.52 kgLisa Geovannaholz [employer] Work Phone: [facility] CenterAdhhfmqsio89-09-8350 09:47-0400Diastolic blood cycijsxg45 mm[Hg]Onelia Geovannaholz [employer] Work Phone: [facility] CenterMwgflluwpm15-51-0052 09:47-0400Heart rate87 /min Onelia Geovannaholz [employer] Work Phone: [facility] CenterKpdzgxuywh00-54-7686 09:47-0400Respiratory rate24 /minLisa Geovannaholz [employer] Work Phone: [facility] CenterDseilryoap91-40-0311 09:47-6077GlH6% (BldA) [Mass fraction]96 %Onelia Geovannaholz [employer] Work Phone: [facility] CenterFblglpowhh28-96-0328 09:47-0400Systolic blood ymcxqktd693 mm[Hg]Onelia Geovannaholz [employer] Work Phone: [facility] CenterAgvspqymov80-62-3084 14:49-0400Body mass index (BMI) [Ratio]51.62 kg/m2Lisa Luishholz [employer] Work Phone: [facility] CenterUlhxbznzjp58-39-5631 14:49-0400Body temperature 97.81 [degF]Onelia Geovannaholz [employer] Work Phone: [facility] CenterOkwryvrydn90-08-2613 14:49-0400Body .06 kgLisa Luishholz [employer] Work Phone: [facility] CenterIokkjdbciz12-00-7182 14:49-0400Diastolic blood ycfslkci78 mm[Hg]Onelia Radhaz [employer] Work Phone: [facility] CenterCeiezuzurh99-80-1664 14:49-0400Heart rate95 /min Onelia Geovannaholz [employer] Work Phone: [facility] CenterMketekphnt37-42-5558 14:49-0400Respiratory rate20 /minLisa Luishholz [employer] Work Phone: [facility] CenterOymqdimgib07-49-1250 14:49-7226BdN6% (BldA) [Mass fraction]92 %Onelia Geovannaholz [employer] Work Phone: [facility] CenterBvqhhyrnts91-05-9478 14:49-0400Systolic blood xwkmcspa558 mm[Hg]Onelia Geovannaholz [employer] Work Phone: [facility] CenterIcaetwneid60-89-1869 13:29-0400Body mass index (BMI) [Ratio]52 kg/m2Lisa Geovannaholz [employer] Work Phone: [facility] CenterQoizbknegf31-80-9060 13:29-0400Body temperature 97.81 [degF]Onelia Geovannaholz [employer] Work Phone: [facility] CenterLciwtnaznz77-74-9004 13:29-0400Body btdyuh053.15 kgLisa Geovannaholz [employer] Work Phone: [facility] CenterFrehhwiywe92-71-7245 13:29-0400Diastolic blood blturhre82 mm[Hg]Onelia Geovannaholz [employer] Work Phone: [facility] CenterUllhuokuph09-57-0339 13:29-0400Heart rate91 /min Onelia Geovannaholz [employer] Work Phone: [facility] CenterNbeqjhanhe00-98-5748 13:29-0400Respiratory rate24 /minLisa Luishholz [employer] Work Phone: [facility] CenterYrilawomti33-52-8061 13:29-0520VnR7% (BldA) [Mass fraction]93 %Onelia Luishholz [employer] Work Phone: [facility] CenterLypzeqocms67-64-8948 13:29-0400Systolic blood hmauqmal113 mm[Hg]Onelia Austinrashaunalaina [employer] Work Phone: [facility] CenterQnedixbbbr37-99-3821 15:36-0500Body rljyjg212.6 cmBrittany Malik [employer] Work Phone: [facility] CenterPbfcbzltfw52-49-8610 15:36-0500Body mass index (BMI) [Ratio]51.33 kg/u7Cpmsjets Malik [employer] Work Phone: [facility] CenterIdolsdueij63-04-8595 15:36-0500Body temperature 97.81 [degF]Samantha Malik [employer] Work Phone: [facility] CenterTpxhzkklvz69-93-8863 15:36-0500Body sbikxt576.24 kgBrittany Malik [employer] Work Phone: [facility] CenterWhkflqhkun34-03-0326 15:36-0500Diastolic blood zulxlkzm67 mm[Hg]Samantha Malik [employer] Work Phone: [facility] CenterKxcuuexgol84-03-4270 15:36-0500Heart ycsp961 /min Samantha Malik [employer] Work Phone: [facility] CenterHxslpdtqjt11-30-4296 15:36-0500Respiratory rate16 /minBrnilton Malik [employer] Work Phone: [facility] CenterEmemoemync02-92-7918 15:36-0318PpN2% (BldA) [Mass fraction]93 %Samantha Malik [employer] Work Phone: [facility] CenterKbroevaeun25-41-4613 15:36-0500Systolic blood krqknefa775 mm[Hg]Samantha Malik [employer] Work Phone: [facility] CenterZdkmvwbmtm56-84-3051 13:41-0500Body utwhrb053.6 cmSmithatomas Edmundo DPM Work Phone: noMercy Hospital WashingtonZfvttgzich42-64-1864 13:41-0500Body mass index (BMI) [Ratio]52.29 kg/x0AppwuuqxEmmanuel Jiang DPM Work Phone: [facility] CenterVxqpfgvywj13-42-8098 13:41-0500Body .97 kgEmmanuel Jiang DPM Work Phone: [facility] CenterNgnqmxykrq05-38-9392 13:41-0500Respiratory rate18 /minEmmanuel Jiang DPM Work Phone: [facility] CenterFpnyrmgotr55-28-7592 14:36-0500Body eofnfd323.6 cmJingany Malik [employer] Work Phone: [facility] CenterOmzfbgfpya65-15-5696 14:36-0500Body mass index (BMI) [Ratio]52.33 kg/f9Zfgstsmr Malik [employer] Work Phone: [facility] CenterLxcccyamdt51-22-1032 14:36-0500Body temperature 96.49 [degF]Samantha Malik [employer] Work Phone: [facility] CenterOulktqepyx84-77-3468 14:36-0500Body tzorkc840.06 kgBrittany Malik [employer] Work Phone: [address] [address]Btstobhgvt25-37-9493 14:36-0500Diastolic blood faqlsamz03 mm[Hg]Samantha Malik [employer] Work Phone: [facility] CenterMfhejbmysq76-22-3028 14:36-0500Heart rate91 /min Samantha Malik [employer] Work Phone: [address] [address]Akdnbucywp45-04-3128 14:36-0500Respiratory rate18 /minBrittany Malik [employer] Work Phone: [address] [address]Guzagifsze29-95-6318 14:36-9444AgM8% (BldA) [Mass fraction]93 %Samantha Malik [employer] Work Phone: [address] [address]Vjlextcirw81-41-5874 14:36-0500Systolic blood pfajjmzo229 mm[Hg]Samantha Malik [employer] Work Phone: [facility] CenterXeestchmow98-55-4171 11:05-0400Diastolic blood cmnlozms11 mm[Hg][facility]10-03-2024 11:05-0400Heart rate93 /[facility]10-03-2024 11:05-0400Respiratory rate20 /[facility]10-03-2024 11:05-5564AeX6% (BldA) [Mass fraction]95 %[facility]10-03-2024 11:05-0400 Systolic blood mm[Hg][facility]10-03-2024 09:02-0400Body jypelx485.18 cmGen[facility]10-03-2024 09:02-0400Body pejnwv917.14 kgGen[facility]09-19-2024 15:42-0400Body ydcevb443.6 cmEmmanuel Jiang DPM Work Phone: [facility] CenterJtxtuajnip70-01-0632 15:42-0400Body mass index (BMI) [Ratio]51.65 kg/i9XqvdnjznEmmanuel Jiang DPM Work Phone: [facility] CenterVmyympxnye43-18-8522 15:42-0400Body .15 kgEmmanuel Jiang DPM Work Phone: [facility] CenterZwfwfdasuh85-03-8800 15:42-0400Diastolic blood bpfcgezh53 mm[Hg]Emmanuel Jiang DPM Work Phone: [facility] CenterAwqehdqhqg81-42-3972 15:42-0400Heart rate74 /min Emmanuel Jiang DPM Work Phone: [facility] CenterPvzltvqfln79-82-9707 15:42-0400Respiratory rate18 /minEmmanuel Jiang DPM Work Phone: [facility] CenterXncrbodfzg27-28-9151 15:42-0400Systolic blood maktgwyb158 mm[Hg]Emmanuel Jiang DPM Work Phone: [facility] CenterLuraouqrxf86-34-0360 14:46-0400Body .6 cmBrittany Malik [employer] Work Phone: [facility]OMer[facility] WashingtonHymomsxvqz51-08-1328 14:46-0400Body mass index (BMI) [Ratio]51.65 kg/d4WujjpdinSamantha Shermantrick [employer] Work Phone: [facility]OMercy [facility] WashingtonRmehtoxpjt83-52-9968 14:46-0400Body temperature 99.3 [degF]Samantha Shermantrick [employer] Work Phone: [facility] CenterYqnjrudqwn44-10-9197 14:46-0400Body .15 kgSamantha Shermantrick [employer] Work Phone: [facility] CenterGlulxrseqk01-37-2763 14:46-0400Diastolic blood qvkhhams33 mm[Hg]Samantha Shermantrick [employer] Work Phone: [facility] CenterHtwvmosqvb19-52-0518 14:46-0400Heart rate97 /min Samantha Shermantrick [employer] Work Phone: [facility] HealthcareComment on above:95% T200-56-2839 14:46-0400Systolic blood cqmfkhom642 mm[Hg]Samantha Shermantrick [employer] Work Phone: [facility] CenterEibskfwnkk88-76-4672 15:27-0500Body wzustw832.6 Ruddy Ram MD Work Phone: [facility] CenterOpcbpnglve06-97-3584 15:27-0500Body mass index (BMI) [Ratio]52.62 kg/u7EgaqxpShaikh Leanna WYNNE Work Phone: [facility]OM[facility] WashingtonHhzzcndwat17-47-8507 15:27-0500Body temperature 96.8 [degF]Shaikh Leanna WYNNE Work Phone: [facility]OM[facility] WashingtonHmcylnrwif58-64-4739 15:27-0500Body hfmvul903.87 Claudio Ram MD Work Phone: [facility] CenterQcepbzwtjg54-09-1964 15:27-0500Diastolic blood mm[Hg]Shaikh Leanna WYNNE Work Phone: [employer]ipLinkXousjugbll01-90-4470 15:27-0500Heart rate98 /min Shaikh Leanna WYNNE Work Phone: XipLinkSwlpupwndh14-12-4540 15:27-8876DrU2% (BldA) [Mass fraction]95 %Shaikh Leanna WYNNE Work Phone: XipLinkOitzdqyoku32-92-1551 15:27-0500Systolic blood aawofmpy972 mm[Hg]Shaikh Leanna WYNNE Work Phone: XipLinkLyqwrhjebg95-23-2977 18:05-0400Body apukjv467.64 Marco Heaton Other [employer] Other 08-14-2023 18:05-0400Body mass index (BMI) [Ratio] 52.45 kg/j2IcisbdBan Heaton Other [employer] Other 08-14-2023 18:05-0400Body qucsjsncoar68.5 [degF]Ban Heaton Other [employer] Other 08-14-2023 18:05-0400Body mgufwd498.42 kgBan Heaton Other [employer] Other 08-14-2023 18:05-0400Diastolic blood occnzyii45 mm[Hg] Ban Heaton Other [employer] Other 08-14-2023 18:05-0400Respiratory rate18 /minBan Heaton Other [employer] Other 08-14-2023 18:05-6907DuQ8% (BldA) [Mass fraction]97 % Ban Bustilloley Other [employer] Other 08-14-2023 18:05-0400Systolic blood cmesmxyp703 mm[Hg] Ban Heaton Other [employer] Other 12-17-2021 12:30-0500Body .64 cmPcourtney Mitchell Other [employer] Other 12-17-2021 12:30-0500Body mass index (BMI) [Ratio] 51.64 kg/w1Mzvwxa Paula Other [employer] Other 12-17-2021 12:30-0500Body kaxjjhfahny75.3 [degF]Ema Barkermond Other [employer] Other 12-17-2021 12:30-0500Body gvowyi339.15 kgEma Mitchell Other [employer] Other 12-17-2021 12:30-1859ZyP7% (BldA) [Mass fraction]92 % Ema Mitchell Other [employer] Other Encounters Encounter DateEncounter TypeCare ProviderFacilityStart: 06-05-2025 End: 99-94-3712xltwzxjjsmSHRXYRKE W MURCEKNot AvailableStart: 06-02-2025 End: 54-00-6775Egqckbhp Result EncounterBengabriela Rouse Murcek DO Work Phone: noms External Department UnsolicitedStart: 06-02-2025 End: 10-15-8213Kngsgwxf Result EncounterBengabriela Rouse Murcek DO Work Phone: noms External Department UnsolicitedStart: 06-02-2025 End: 84-82-8156Osvkmmgnn to same day surgery centerBelui Ayers DO-[facility] CenterStart: 06-02-2025 End: 88-79-4809yeqpnjdhdeQGT STAFF-[facility] CenterStart: 05-19-2025 End: 10-38-6485Hcndisp encounter procedureBelui Ayers RT-Ims-Eskvcxta Testing Work Phone: Start: 05-19-2025 End: 89-96-0503qtggribpuxDNX FJXHS-Tmx-Ylwsfiwd TestingStart: 05-19-2025 Encounter for preprocedural laboratory examinationBemahadkristofer Gamal [facility] GroupStart: 05-19-2025 End: 67-63-9213Jxqluyuk Result EncounterBengabriela Ayers DO Work Phone: noms External Department UnsolicitedStart: 05-19-2025 End: 08-09-6234Gijujits Result EncounterBengabriela Ayers DO Work Phone: noms External Department UnsolicitedStart: 05-15-2025 End: 91-58-1666Droouf outpatient visit 25 minutesBengabriela Ayers DO Work Phone: NOZP Nissa OtolaryngologyComment on above:Thyroid mass (Primary Dx)Start: 05-15-2025 End: 78-30-3158zveqigaokjZVOUJZPO W MURCEKNot AvailableStart: 05-15-2025 End: 46-46-8508Xkkczw flowsheetBenfatemehmin Padma Fishercek DO Work Phone: noms Nissa OtolaryngologyStart: 05-15-2025 End: 12-96-5494Czlbzx flowsheetBenjamin W Murcek DO Work Phone: noms Nissa OtolaryngologyStart: 05-05-2025 End: 08-39-7081resorodhzoVWTPHIVA W MURCEKNot AvailableStart: 04-24-2025 End: 20-70-5514Yagpen outpatient new 45 minutesBengabriela Ayers DO Work Phone: NOMS [place] OtolaryngologyComment on above:Thyroid noduleStart: 04-24-2025 End: 05-81-7764eaahjrzcfqUQEQSXDD W MURJUAN ALBERTOKNot AvailableStart: 04-24-2025 End: 02-71-6574Bdyfka flowsheetBemahadmin Padma Murcristiano DO Work Phone: NOMS [place] OtolaryngologyStart: 04-24-2025 End: 25-35-6665Uiwbuc flowsheetBelui Ayers DO Work Phone: NOMS [place] OtolaryngologyStart: 03-29-2025 ambulatoryNON [facility] Work Phone: Start: 26-73-0437Ydt-patient / Non-visitOnelia BAILEY-[facility] Work Phone: Start: 03-28-2025 End: 64-48-4970Ewtsyrkjb to same day surgery Nerissa BAILEY- Ultrasound [facility] Work Phone: Start: 03-28-2025 End: 93-23-8556egidmpciwzWRYMer[facility] Work Phone: Start: 03-23-2025 End: 49-46-4533Bgandoz encounter procedureTiff Caba MD-CT Scan [facility] Work Phone: Start: 03-23-2025 End: 44-16-0076virgcecmfhPPAMercy Health [facility] Work Phone: Start: 03-08-2025 End: 24-66-7202hperieapkxEpobc M. LueFacility:EU BellevueStart: 03-08-2025 End: 29-39-2765Ujsycyt encounter procedureTiff Boo [facility] start: 02-22-2025 End: 65-45-1457Vijedh flowsheetOnelia Simon [employer] Work Phone: NOMS CWM FMStart: 02-22-2025 End: 69-91-9387Mftjhy flowsheetLisa Aichjuaquin [employer] Work Phone: NODL CWM FMStart: 02-22-2025 End: 97-23-9933ycomugoswlYVEU RADHAZNot AvailableStart: 02-22-2025 End: 51-32-6149Yqmimy outpatient visit 25 minutesOnelia Simon [employer] Work Phone: NOMS CWM FMComment on above:Generalized abdominal pain (Primary Dx); Primary hypertension ; Class 3 severe obesity due to excess calories without serious comorbidity with body mass index (BMI) of 50.0 to 59.9 in adult ([facility]-HCC)Start: 02-02-2025 End: 21-55-5516Xkhesc OnlyOnelia Simon [employer] Work Phone: NOOZ CWM FMComment on above:Thyroid nodule (Primary Dx)Start: 01-31-2025 End: 27-90-4225ZvyngsMwjv Aichholz [employer] Work Phone: NOMS CWM FMComment on above:Type 2 diabetes mellitus without complication, without long-term current use of insulin (HCC); Type 2 diabetes mellitus without complications (HCC)Adrenal mass, left (HCC) (Primary Dx)Start: 01-30-2025 End: 25-20-5869EgtlfwTfje Naderer MD Work Phone: NOMS CWM FMComment on above:Type 2 diabetes mellitus without complications (HCC)Start: 01-23-2025 End: 45-43-4765OdmigaDdqu Aichholalaina [employer] Work Phone: NOBL CWM FMComment on above:Type 2 diabetes mellitus without complication, without long-term current use of insulin (HCC)Start: 01-20-2025 End: 73-07-8903Grhvctdzz Result EncounterLisa Aichholz [employer] Work Phone: noms External Department UnsolicitedStart: 01-20-2025 End: 45-73-9059Lvqbvmwlg Result EncounterLisa Aichholz [employer] Work Phone: noms External Department UnsolicitedStart: 01-17-2025 End: 81-77-3548Wguycenmy Result EncounterLisa Aichholz [employer] Work Phone: noms External Department UnsolicitedStart: 01-17-2025 End: 94-77-7964Uucxcqhsk Result EncounterLisa Aichholz [employer] Work Phone: noms External Department UnsolicitedStart: 01-17-2025 End: 69-75-1085Zfjpue OnlyLisa Aichholz [employer] Work Phone: noms CWM FMComment on above:Thyroid nodule (Primary Dx); Adrenal nodule (HCC)Start: 01-11-2025 End: 46-76-5322kvbqmpwoffWOPW AICHHOLZNot AvailableStart: 01-11-2025 End: 74-10-7571Ccrnug flowsheetLisa Aichholz [employer] Work Phone: noms CWM FMStart: 01-11-2025 End: 31-95-2978Dauten flowsheetLisa Aichholz [employer] Work Phone: noms CWM FMStart: 01-11-2025 End: 97-60-2623Hjkeigx encounter procedureLisa Aichholz [employer] Work Phone: noms HealthcareComment on above:Medicare annual wellness visit, subsequent (Primary Dx); JEFF (obstructive sleep apnea); Primary hypertension ; Class 3 severe obesity due to excess calories without serious comorbidity with body mass index (BMI) of 50.0 to 59.9 in adult ([facility]-HCC); Type 2 diabetes mellitus without complication, without long-term current use of insulin ([facility]); IQBAL (dyspnea on exertion); Dyspnea on exertionStart: 01-05-2025 End: 85-32-7446GsyqncYlub Aichholz [employer] Work Phone: noms CWM FMComment on above:Vitamin D deficiency (Primary Dx); HypercalcemiaStart: 01-04-2025 End: 87-15-8703Sfryxhnlo Result EncounterLisa Austinholz [employer] Work Phone: noms External Department UnsolicitedStart: 01-04-2025 End: 34-13-3474Asinnhepo Result EncounterLisa Aichholz [employer] Work Phone: noms External Department UnsolicitedStart: 12-27-2024 End: 83-43-5169Pmdfhxvcl Result EncounterLisa Aichholz [employer] Work Phone: noms External Department UnsolicitedStart: 12-27-2024 End: 83-59-5025Dzybdqnbb Result EncounterLisa Aichholz [employer] Work Phone: noms External Department UnsolicitedStart: 12-14-2024 End: 59-46-7804Bbzuih flowsheetLisa Aichholz [employer] Work Phone: noms CWM FMStart: 12-14-2024 End: 43-22-2428Wtyppi flowsheetLisa Aichholz [employer] Work Phone: noms CWM FMStart: 12-14-2024 End: 03-53-4530Urujuu outpatient visit 25 minutesLisa Luishholz [employer] Work Phone: noms CWM FMComment on above:Dyspnea [...] (CMS/HCC); Bilateral lower extremity edemaStart: 12-14-2024 End: 94-94-4250yrwfiitbxkEUFP LUISHHOLZNot AvailableStart: 10-31-2024 End: 80-24-8033JwtfnfPiyl Naderer MD Work Phone: noms CWM FMComment on above:Lumbar spondylosis (Primary Dx); Type 2 diabetes mellitus without complication, without long-term current use of insulin; Essential (primary) hypertension (CMS/HCC); Other specified anxiety disorders; 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); H/O seasonal allergies; Type 2 diabetes mellitus without complications; Hyperlipidemia, unspecified (CMS/HCC)Start: 09-13-2024 End: 75-06-5344Aqlnmp outpatient visit 15 minutesSamantha Malik [employer] Work Phone: noms CWM FMComment on above:Moderate episode of recurrent major depressive disorder (CMS/HCC) (Primary Dx); Type 2 diabetes mellitus without complication, without long-term current use of insulin (CMS/HCC); Primary hypertension (CMS/HCC); Other hyperlipidemia (CMS/HCC); 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); Diabetes mellitus due to underlying condition with diabetic polyneuropathy (CMS/HCC)Start: 09-13-2024 End: 95-39-3607nughyxarchMTCGVFPD FITZPATRICKNot AvailableStart: 09-13-2024 End: 06-31-2362Lwnhnx flowsAndrew Malik [employer] Work Phone: NOMS CWM FMStart: 09-13-2024 End: 38-59-2525Wcbqle flowsheetSamantha Malik [employer] Work Phone: NOMS CWM FMStart: 08-18-2024 End: 52-12-3615Amcvmm flowsShikha Jiang DPM Work Phone: NOMS CI PODIATRYStart: 08-18-2024 End: 38-23-1740Tocwrj flowsheetEmmanuel Jiang DPM Work Phone: NOMS CI PODIATRYStart: 08-18-2024 End: 77-98-7293Jbltkiy encounter procedureNicholas A Brown DPM Work Phone: noms CI PODIATRYComment on above:Type 2 diabetes mellitus without complication, without long-term current use of insulin (CMS/HCC) (Primary Dx); Pain due to onychomycosis of toenails of both feet; Hallux rigidus of left foot; Hallux rigidus of right foot; Venous insufficiencyStart: 08-18-2024 End: 95-15-0706ojqpothwzqLGSHTXRC A BROWNNot AvailableStart: 08-01-2024 End: 41-02-1184LcufvdNpfe Naderer MD Work Phone: noms CWM FMComment on above:Type 2 diabetes mellitus without complication, without long-term current use of insulin (CMS/HCC)Start: 07-25-2024 End: 61-42-0845NzhswgJbdzqoslKevan Malik NP Work Phone: noms CWM FMComment on above:Hyperlipidemia, unspecified (CMS/HCC); Essential (primary) hypertension (CMS/HCC)Start: 07-21-2024 End: 12-92-8194Qqbemdgvl encounterEmmanuel Jiang DPM Work Phone: noms CI PODIATRYStart: 07-06-2024 End: 14-74-2778Xgjapq flowsheetBayley Malicki LPCNOMS CI BHStart: 07-06-2024 End: 47-65-4272Jbpins flowsheetBayley Malicki LPCNOMS CI BHStart: 07-06-2024 End: 20-00-9961aymrrajatgFRTVFE MALICKINot AvailableStart: 06-16-2024 End: 11-18-1124Yzrgwq outpatient visit 15 minutesBrnilton Malik NP Work [...] (BMI) of 50.0 to 59.9 in adult ([facility]/HCC)Start: 06-16-2024 End: 00-64-8932ojxjlriwimPQJUSFMV FITZPATRICKNot AvailableStart: 06-16-2024 End: 63-30-2494Dvoklp flowsheetBrittany Malik [employer] Work Phone: noms CWM FMStart: 06-16-2024 End: 99-82-5545Ewlsxt flowsheetBrittany Malik [employer] Work Phone: noms CWM FMStart: 05-11-2024 End: 68-04-9093PebipsBdgjuxzy Malik [employer] Work Phone: noms CWM FMComment on above:Other specified anxiety disordersStart: 01-43-8249Isf-patient / Non-visitCone Health [facility] Work Phone: Start: 04-28-2024 End: 23-91-4055Tgjuuieng to same day surgery [facility] Work Phone: Start: 04-28-2024 End: 86-43-4028mzdwpkubnrVMD STAFFPomerene Hospital Ctr Work Phone: Start: 04-14-2024 End: 59-99-9547Ouioek outpatient new 30 David Jiang DPM Work Phone: noms CI PODIATRYComment on above:Hallux rigidus of left foot (Primary Dx); Type 2 diabetes mellitus without complication, without long-term current use of insulin ([facility]); Hallux rigidus of right foot; Diabetes mellitus due to underlying condition with diabetic polyneuropathy, unspecified whether prison insulin use ([facility]); Onychomycosis; Toe pain, bilateral; Venous insufficiencyStart: 04-14-2024 End: 82-22-5880Dsrxbv Bob THOMASM Work Phone: noms CI PODIATRYStart: 04-14-2024 End: 63-79-2370Isihec flowsShikha Hilary Edmundo DPM Work Phone: noms CI PODIATRYStart: 03-24-2024 End: 17-53-1308Slyhok outpatient visit 25 minutesSamantha Malik [employer] Work Phone: NOYQ CWM FMComment on above:JEFF (obstructive sleep apnea) (Primary Dx); Primary hypertension (CMS/HCC); Class 3 severe obesity due to excess calories without serious comorbidity with body mass index (BMI) of 50.0 to 59.9 in adult (CMS/HCC); Type 2 diabetes mellitus without complication, without long-term current use of insulin (CMS/HCC); Other hyperlipidemia (CMS/HCC); Screening for colon cancer; Screening for prostate cancerStart: 03-24-2024 End: 41-50-7611Uwmbzk flowsheetSamantha Shermantrick [employer] Work Phone: NOMS CWM FMStart: 03-24-2024 End: 00-38-2352Eymrdu flowsheetBrnilton Malik [employer] Work Phone: NOLN CWM FMStart: 03-24-2024 End: 45-97-3176QoegiyRciojkbf Malik [employer] Work Phone: NOMS CWM FMComment on above:Type 2 diabetes mellitus without complication, without long-term current use of insulin (CMS/HCC)Start: 10-08-2023 End: 03-85-5476Tpzkbdcbb Result EncounterSchristin Ram MD Work Phone: noms External Department UnsolicitedStart: 10-08-2023 End: 53-93-7756Ozvkncksf Result EncounterSchristin Ram MD Work Phone: noms External Department UnsolicitedStart: 09-07-2023 Orders Padmini Ram MD Work Phone: noms CWM IMComment on above:H/O seasonal allergies (Primary Dx)Start: 2023 End: 99-45-5268Kljpnjkzi Result EncounterSchristin Ram MD Work Phone: noms External Department UnsolicitedStart: 2023 End: 33-02-1676Clhtusqzy Result EncounterSchristin Ram MD Work Phone: noms External Department UnsolicitedStart: 08-27-2023 End: 80-58-3375Iknssk outpatient visit 25 minutesShaikh Leanna WYNNE Work Phone: noms CWM IMComment on above:IQBAL (dyspnea on exertion) (Primary Dx); JEFF (obstructive sleep apnea); Primary hypertension (CMS/HCC); Type 2 diabetes mellitus without complication, without long-term current use of insulin (CMS/HCC)Start: 05-80-1690Xdattr Jaylen Ram MD Work Phone: noms CWM IMStart: 63-64-8908Pzsgbtjulia Ram MD Work Phone: noms CWM IMStart: 03-09-2023 End: 24-21-2628ozdmfodptvDsehwp Bailey Other [facility]Primsaint [facility] Zily[employer] Other Start: 04-34-4035Trovdw outpatient visit 15 minutes [facility] ClydeStart: 10-08-2022 End: 98-19-5982qdupzkuusjTDIFMP H FAWWADFacility:C5Slujm: 12-95-5961cbpbttwbld SHAIKH Shadi FAWWADFacility:A8Bmzzf: 07-12-2021(URG) Urgent Care VisitPanancy Mitchell [facility] ClydeStart: 07-12-2021 End: 80-05-6837npfwqarufmIckkyk Dymond Other [employer] Other Procedures DateProcedureProcedure DetailPerforming ClinicianStart: 32-88-9947MTYXBIB POCT GLUCOMETERSBenjamin W Murcek DO Work Phone: start: 44-81-0045Wkpahfnjs of thyroid glandStart: 81-89-8809GWRZSMU POCT GLUCOMETERSBenjamin W Murcek DO Work Phone: start: 90-44-2733Defcf of parathormoneBenjamin W Murcek DO Work Phone: start: 26-44-8149Epheaftd blood count with white cell differential, automatedBenjamin W Murjuan albertok DO Work Phone: start: 32-42-2669Hqkquvanaipoiva measurementComment on above:This test was developed and its performance characteristicsdetermined by [employer]. It has not been cleared orapproved by the Food and Drug Administration. Start: 66-22-9607IxhggmwuqjPteiw: 79-92-5093VW of abdomen with contrastStart: 23-20-2550TQ ABDOMEN WO/W CONLisa Aichholz [employer] Work Phone: Start: 52-57-2158Fo soft tissue head & neck real time imge docmLisa Aichholz [employer] Work Phone: Start: 25-82-4075HF CHEST W CONTRASTLisa Aichholz [employer] Work Phone: Start: 38-48-4061JE PULMONARY FUNCTION TESTLisa Aichholz [employer] Work Phone: Start: 44-69-8918YDX HEMOGLOBINLisa Aichholz [employer] Work Phone: Start: 64-14-5582WI ECHO DOPPLER COMPLETELisa Aichholz [employer] Work Phone: Start: 61-92-5768TBL VITAMIN D 25 OHLisa Aichholz [employer] Work Phone: Start: 08-78-6240JCQ BASIC METABOLIC PANELLisa Aichholz [employer] Work Phone: Start: 93-73-8928Cxlyzlwsan glycosylated o5tTbyfsa Alfred GAN Work Phone: Start: 07-06-2024 End: 69-62-1371Shntyyarbyx diagnostic evaluationModerate episode of recurrent major depressive disorder (CMS/HCC)Faisal Cr LPCComment on above:Moderate episode of recurrent major depressive disorder (CMS/HCC)Start: 05-05-2024 ColonoscopyBrnilton Malik NP Work Phone: Start: 24-77-6358Ueyvlujpx colonoscopyStart: 69-28-2807HD ALEJANDRO PERF SPECT REST Lindy Ram MD Work Phone: Start: 32-59-1227LRC MaximLina Ram MD Work Phone: Start: 35-03-4900VbinahsgnygVqdisx Fawwad MD Work Phone: Plan of Treatment DateCare ActivityDetailAuthorStart: 81-36-2257Featiijwi for malignant neoplasm of colonNOMS HealthcareStart: 23-29-3626Wiachhcmt for malignant neoplasm of colonNOMS HealthcareStart: 01-17-2026 End: 91-81-4990Cjgvnww encounter elexqbsuy17/24/2026 5:00 PM EDT Office Visit [facility] [address] [place] [address] Onelia Simon NP [address] [place] [address] NOMS CW FMStart: 06-18-2026Medicare Annual Wellness (AWV) Medicare Annual Wellness (AWV)NOMS HealthcareStart: 83-97-4850Finvxess screening Diabetes: Retinopathy ScreeningNOMS HealthcareStart: 06-12-2025 End: 16-49-9358Ndgrbbm encounter mdoctceeh07/17/2025 2:00 PM EST Office [facility] [address] [place], [id number] Juan Ayers, DO [address] [place] [address] KATHLEEN [facility] OtolaryngologyStart: 10-97-3333FkvwhskrtCleveland Clinic Hillcrest Hospitaltart: 01-43-3066QuxyvlihvCleveland Clinic Hillcrest Hospitaltart: 05-15-2025 End: 36-39-3286Myiqiit encounter procedureNOMS [place] OtolaryngologyComment on above:ArrivedStart: 04-24-2025 End: 52-83-5031Drwjrqg encounter tuifpmekb88/29/2025 3:00 PM EDT Office Visit [facility] [address] [place], [id number] Juan Ayers, DO [address] [place] [address] ArrivedNOMS [facility] Comment on above:ArrivedStart: 04-24-2025 End: 45-18-5443BW Neck W contrast IVCT soft tissue neck w IV contrast Imaging Routine Thyroid nodule Expected: 04/24/2025, Expires: 04/24/2026[facility] Work Phone: comment on above:Expected: 04/24/2025, Expires: 04/24/2026Start: 68-04-5939Sutvbdz referralMercy Health West Hospital Work Phone: Start: 87-84-1406KlxtbbkbdGenesis Hospital Start: 17-35-5561Cwcigtjaeiwlvv, fractionation measurement, plasmaCleveland Clinic Hillcrest Hospitaltart: 84-10-2834HmpopagrkCleveland Clinic Hillcrest Hospitaltart: 29-25-7904XmopyhbanwMablxshhbCleveland Clinic Hillcrest Hospitaltart: 90-59-3449LVPNP-19 Vaccine ( season)COVID-19 Vaccine ( season)[facility] Start: 22-46-0382Hljxbxbwa vaccinationInfluenza Vaccine (#1)[facility] Start: 70-57-9417Jxgraptbwp A1c measurementDiabetes: Hemoglobin H8KFQZJ HealthcareStart: 03-14-2025 End: 92-65-2085Ytunoue encounter trgstyewq84/19/2025 2:00 PM EDT [facility] [address] [place] [address] Onelia Simon, [employer] [address] [place] [address] [facility] FMStart: 03-07-2025 End: 680281-kgjliajjwnqkcy D3 [Mass/volume] in Serum or PlasmaVitamin D 25 hydroxy Lab Routine Vitamin D deficiency Hypercalcemia Expected: 03/07/2025 (Approximate), Expires: 01/05/2026[facility] HealthcareComment on above:Expected: 03/07/2025 (Approximate), Expires: 01/05/2026Start: 03-07-2025 End: 05-20-1970Vsqwd metabolic 1998 panel - Serum or PlasmaBasic metabolic panel Lab Routine Vitamin D deficiency Hypercalcemia Expected: 03/07/2025 (Approxima te), Expires: 01/05/2026[facility] Work Phone: Comment on above:Expected: 03/07/2025 (Approximate), Expires: 01/05/2026Start: 22-59-1351Clnbl screening for proteinDiabetes: Urine Protein ScreeningUTAH STATE HOSPITAL HealthcareStart: 02-02-2025 End: 24-00-9955ZO Guidance for fine needle aspiration of Thyroid glandUS guided thyroid biopsy Imaging Routine Thyroid nodule Expected: 02/02/2025 (Approximate), Expires: 02/02/2026[facility] Work Phone: Comment on above:Expected: 02/02/2025 (Approximate), Expires: 02/02/2026Start: 01-25-2025 End: 89-27-6005Rjwwrku encounter hwaqmhfks29/02/2025 1:40 PM EDT Office Visit [facility]S [facility] [address] [place] [address] Onelia Simon, [place] [address] [place] [address] NOMS CWM FMStart: 01-17-2025 End: 29-10-8750YK Abdomen WO and W contrast IVCT abdomen w and wo IV contrast Imaging Routine Adrenal nodule (HCC) Expected: 01/17/2025, Expires:01/17/2026 NOMS HealthcareComment on above:Expected: 01/17/2025, Expires: 01/17/2026Start: 01-17-2025 End: 89-89-5488JN Thyroid glandUS thyroid Imaging Routine Thyroid nodule Expected: 01/17/2025 (Approximate), Expires: 01/17/2026[facility] Work Phone: Comment on above:Expected: 01/17/2025 (Approximate), Expires: 01/17/2026Start: 01-11-2025 End: 67-91-1524Dcommph encounter htthxejwx04/18/2025 2:20 PM EDT Office Visit [facility] [address] [place] [address] Onelia Simon, ELVIA [address] [place] [address] [facility]S [facility] FMStart: 01-11-2025 End: 45-70-3062Jbpuxomags [Mass/volume] in Serum or PlasmaCreatinine Lab Routine Primary hypertension Type 2 diabetes mellitus without complication, without l trae-term current use of insulin (HCC) IQBAL (dyspnea on exertion) Expected: 01/11/2025 (Approximate),Expires: 01/11/2026NOMS HealthcareComment on above: Expected: 01/11/2025 (Approximate), Expires: 01/11/2026Start: 01-11-2025 End: 83-11-8793YC Chest W contrast IVCT chest w IV contrast Imaging Routine Dyspnea on exertion Expected: 01/11/2025 (Approximate), Expires: 01/11/2026[facility] Work Phone: Comment on above:Expected: 01/11/2025 (Approximate), Expires: 01/11/2026Start: 01-11-2025 End: 98-53-3838Vsyqceqvw function reportPulmonary Function Test Imaging Routine Dyspnea on exertion Expected: 01/11/2025 (Approximate), Expires: 01/11/2026NODE HealthcareComment on above:Expected: 01/11/2025 (Approximate), Expires: 01/11/2026Start: 12-14-2024 End: 37-27-4972Cufec metabolic 1998 panel - Serum or PlasmaBasic metabolic panel Lab Routine Primary hypertension (CMS/HCC) Type 2 diabetes mellitus without co mplication, without long-term current use of insulin Expected: 12/14/2024 (Approximate), Expires: 12/14/2025[facility] Work Phone: Comment on above:Expected: 12/14/2024 (Approximate), Expires: 12/14/2025Start: 12-14-2024 End: 64-49-0413Ubkntxnnepobqn 2D completeEchocardiogram 2D complete Echocardiography Routine JEFF (obstructive sleep apnea) Primary hypertension (CMS/HCC) Dyspnea on exertion Bilateral lower extremity edema Expected: 12/14/2024 (Approximate), Expires: 12/14/2026[facility] HealthcareComment on above: Expected: 12/14/2024 (Approximate), Expires: 12/14/2026Start: 12-14-2024 End: 96-52-8545ZG Chest 2 ViewsXR chest 2 views Imaging Routine Dyspnea on exertion Bilateral lower extremity edema Expected: 12/14/2024 (Approximate), Expires: 12/14/2025[facility] HealthcareComment on above:Expected: 12/14/2024 (Approximate), Expires: 12/14/2025Start: 12-14-2024 End: 24-85-1240Sagwlme encounter /21/2025 1:20 PM EDT Office Visit [facility] [address] [place] [address] Onelia Simon NP [address] [place] [address] JEFF (obstructive sleep apnea) (Primary Dx); Primary [...] long-term current use of insulinStart: 12-12-2024 End: 85-95-2024Qgxlgsr encounter dygoapbns11/19/2025 3:00 PM EDT [facility] [address] [place] [address] Samantha Malik NP [address] [place] [address] NOMS CWM FMStart: 10-27-2024 End: 90-66-2063Uuodblv encounter vdqnwzyel87/03/2025 1:50 PM EDT Procedure Visit [facility] [address] [facility] [address] [place] [address] Emmanuel Jiang DPM [address] [facility] [address] [place] [address] NOMS CI PODIATRYStart: 91-71-4335Fxddrbhiix A1c measurementDiabetes: Hemoglobin D9LOKFUMercy Hospital WashingtonStart: 09-13-2024 End: 21-38-6198Ctsnmgf encounter procedureNOMS [facility] FMComment on above:Arrived Start: 08-18-2024 End: 77-67-4771Nymtsls encounter maepvhbbs04/23/2025 1:40 PM EST Office Visit [facility] [address] [facility] [address] [place] [address] Emmanuel Jiang DPM [address] [address] Type 2 diabetes mellitus without complication, without long-term current use ofinsulin (CMS/[facility]) (Primary Dx); Pain due to onychomycosis [...] of right foot; Venous insufficiencyStart: 08-11-2024 End: 56-47-4285Jjdlrug encounter udpbxgnlh74/16/2025 4:10 PM EST Office Visit [facility] [address] [facility] [address] [place] [address] Emmanuel Jiang DPM [address] [address] [facility] PODIATRYStart: 07-25-2024 End: 01-36-2318Qdcmvx Work07/25/2024 1:30 PM EST Social Work [facility] [address] [facility] [address] [place] [address] Faisal Cr LPC [facility] BHStart: 07-21-2024 End: 92-15-5620Nlsoqqi encounter krvcgoxda01/26/2024 9:50 AM EST Office Visit [facility] [address] [facility] [address] [place] [address] Emmanuel Jiang DPM [address] [address] [facility] PODIATRYStart: 07-06-2024 End: 95-07-9027Ceqlpe Work07/06/2024 10:30 AM EST Social Work [facility] [address] [place] [address] Faisal Cr LPC Moderate episode of recurrent major depressive disorder (CMS/HCC)[facility] Comment on above:Moderate episode of recurrent major depressive disorder (CMS/HCC)Start: 06-30-2024 End: 51-60-5717Zafpcgl encounter vuznvjkwg02/05/2024 3:40 PM EST Office Visit [facility] [address] [place] [address] Emmanuel Jiang DPM [address] [address] [facility] PODIATRYStart: 06-16-2024 End: 52-03-4717Lxqnjie encounter procedureNOMS CWM FMComment on above:Arrived Start: 66-59-9158Qpdae screening for proteinDiabetes: Urine Protein Screening [facility] HealthcareStart: 15-34-1881VjzbskjvbCleveland Clinic Hillcrest Hospitaltart: 04-14-2024 End: 49-59-5804Tmaijfi encounter frfabznku24/19/2024 3:40 PM EDT Office Visit [facility] [address] [place] [address] Emmanuel Jiang DPM [address] [address] Type 2 diabetes mellitus without complication, without long-term current use ofinsulin (CMS/HCC)[facility] CI PODIATRYComment on above:Type 2 diabetes mellitus without complication, without long-term current use of insulin (CMS/HCC)Start: 99-87-0573Xgzkpoupw vaccinationInfluenza Vaccine (#1) [facility] HealthcareStart: 03-24-2024 End: 70-03-0181Mcrkuul encounter ivvwhvaqo92/29/2024 3:00 PM EDT Office Visit [facility] [address] [place] [address] Samantha Malik NP [address] [place] [address] ArrivedNOMS CWM FMComment on above:ArrivedStart: 03-24-2024 End: 49-73-1547Eadbpwnm specific Ag [Mass/volume] in Serum or PlasmaPSA Lab Routine Screening for prostate cancer Expected: 03/24/2024 (Approximate), Expires: 03/24/2025[facility] Work Phone: Comment on above:Expected: 03/24/2024 (Approximate), Expires: 03/24/2025Start: 53-45-9623Zksjyhxjo vaccinationInfluenza Vaccine (#1) [facility] HealthcareComment on above:Postponed from 03/27/2023 (Patient Refused) Start: 08-27-2023 End: 05-45-1638Gcpzjli encounter bezpuzyja74/01/2024 3:30 PM EST Office Visit [facility] IM [address] [place] [address] Shaikh Ram MD [address] [place] [address] [facility]rivedNOCOMM[facility] IMComment on above:ArrivedStart: 08-27-2023 End: 34-50-0061IQS 12 leadECG 12 lead ECG Routine IQBAL (dyspnea on exertion) Expected: 08/27/2023 (Approximate), Expires: 08/27/2024[facility] Work Phone: Comment on above:Expected: 08/27/2023 (Approximate), Expires: 08/27/2024Start: 90-79-7250Hsonvqezgs A1c measurementDiabetes: Hemoglobin W3LTTBO HealthcareStart: 08-27-2023 End: 63-82-0626QF Heart Perfusion W adenosine and W radionuclide IVSTRESS NUCLEAR [facility]IC[facility] Cardiac Nuclear Medicine Routine IQBAL (dyspnea on exertion) Expected: 08/27/2023 (Approximate), Expires: 08/27/2025[facility] Comment on above:Expected: 08/27/2023 (Approximate), Expires: 08/27/2025Start: 16-11-5322Aisvuvcdi vaccinationInfluenza Vaccine (#1)[facility] CenterStart: 82-73-2045Eufgt screening for proteinDiabetes: Urine Protein ScreeningParkland Health CenterStart: 62-19-9595Hfaenixj screeningDiabetes: Retinopathy ScreeningUTAH [facility] HealthcareStart: 61-04-1235Jnvtrzburd A1c measurementDiabetes: Hemoglobin A1C [facility] CenterStart: 02-02-1957Medicare Annual Wellness (AWV)Medicare Annual Wellness (AWV)[facility] CenterStart: 40-43-2358Ypbuypsgj for malignant neoplasm of [facility]University [facility] metabolic 1998 panel - Serum or PlasmaBasic metabolic panel Lab Routine 05/19/2025 2:54 PM EDTParkland Health Center Work Phone: Metanephrine Free [Mass/volume] in Serum or Plasma Genesis HospitalNormetanephrine measurementGenesis HospitalPatient EducationPomerene Hospital Ctr Work Phone: Patient referralPomerene Hospital Ctr Work Phone: Thyrotropin [Units/volume] in Serum or PlasmaParkland Health Center Immunizations Immunization DateImmunizationNotesCare NeuyqhrfZpxlyfbq61-25-3401hculcxykr, seasonal, injectable, preservative freeFaisal Cr LTAC, located within [facility] 21-22-2131senvtgjdq virus vaccine, unspecified formulationBakari Marina MD Work Phone: [facility] Health CenterXpiaiprons90-21-3348qiugspz toxoid, reduced diphtheria toxoid, and acellular pertussis vaccine, adsorbedBan Heaton Other [place] Zilyo Other 08-075848-95-9006bqqwzuf and diphtheria toxoids, adsorbed, preservative free, for adult use (5 Lf of tetanus toxoid and 2 Lf of diphtheria toxoid)Shaikh Leanna WYNNE Work Phone: [phone] [place], [place] [address]Vjnusrjkkb73-81-6311Syhoruyokumx Conjugate PCV 20 Shaikh Leanna WYNNE Work Phone: [phone] [place], [place] [address]Mdrtptiijl45-90-2117Rgtvkmgkb, High-dose Seasonal, Quadrivalent, Preservative Patricia Ram MD Work Phone: [phone] [place], [place] [address]Beabhprcjm59-32-8455irhzichxj virus vaccine, unspecified formulationSchristin Ram MD Work Phone: [phone] [place], [place] [address]Ebhysnomyy72-85-0280ileikimgf, injectable, quadrivalent, preservative Patricia Ram MD Work Phone: [phone] [place], [place] [address]Tqtvhpexhi83-75-7774yracdhghr, injectable, quadrivalent, preservative Patricia Ram MD Work Phone: [phone] [place], [place] [address]Zewotlkjzu86-16-2809lgmgehlca, injectable, quadrivalent, preservative Patricia Ram MD Work Phone: [phone] [place], [place] [address]Oeqrzmwtkh58-09-1511ykfqfsioo, injectable, quadrivalent, preservative Patricia Ram MD Work Phone: [phone] [place], [place] [address]Wbbmguhsgd95-17-0278ealntiebu, injectable, quadrivalent, preservative Patricia Ram MD Work Phone: [phone] [place], [place] [address]Bohpbdmdxh74-57-3991gugayduqu, injectable, quadrivalent, preservative Patricia Ram MD Work Phone: [phone] [place] [address] Payers DatePayer CategoryPayerPolicy [id number] [id number] 2025 [id number] [id number] 2021Medicare (Managed Care)[id number] 09-09-4611Vdxatdd4.2.840.801675.1.13.693.2.7.3.895490.96245-79-8200BpupgxnA545F9 2.16.840.3.785678.84656559-54-8581Wmfc-uec20[id number] 2.16.840.1.745369.3.57[id number] 2.16840.1.384631.3.57[id number] 2.16840.1.263037.3.579.[id number] 2.16840.1.897816.3.579.2.614951-29-5513Cqkwvgv79311267 2.16840.1.042564.3.57[id number] 2.16840.1.567869.3.579.[id number] 2.16.840.1.123199.3.579.[id number] 2.16.840.1.739049.3.57[id number] 2.16840.1.590465.3.57[id number] 2.16.840.1.783093.3.57[id number] 2.16840.1.162496.3.57[id number] 2..0.1.192063.3.579.2.[id number] 2..840.1.190420.3.579.2.[id number] 2..840.1.03187[id number] 2.16.840.1.384760.3.579.2.531 [id number] 2.840.1.261431.3.579.2.960Pwafnec40543824 2..840.1.9[id number] 2.0.1.615443.3.579.2.531 Social History DateTypeDetailFacilityUnknown if ever smokedSulphur Zilyo Other Start: 07-09-2023 End: 51-31-8791Wyg Assigned At [facility] Zilyo Other Start: 07-09-2023 End: 55-45-4693Thomowx smoking status NHISNever smoked tobaccoNOMS Healthcare Start: 07-09-2023 End: 17-93-7248Gykdvpg use and exposureSmokeless tobacco non-userNOMS Healthcare Start: 08-06-2023 End: 90-11-2816Panwphl intakeLifetime non-drinker (finding)[facility] HealthcareStart: 07-09-2023 End: 03-51-5988Nqwpwtn of Social functionNOMS HealthcareStart: 58-60-7667Vud Assigned At BirthNot on fileNOMS HealthcareStart: 04-28-2024 End: 96-87-2385Hqcvhtk smoking status NHISEx-smoker (finding)[facility] Hospitaltart: 12-02-6561Tld Assigned At [facility] Medical Centerexual OrientationExec[facility] [place] sexMale (finding)[facility] Medical Centertart: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 as uncontrolled Moderate episode of recurrent major depressive disorder ([facility]) Bilateral lower extremity edema Medicare annual wellness visit, subsequent- Primary JEFF (obstructive sleep apnea) Obstructive sleep apnea (adult) (pediatric) Primary hypertension Unspecified essential hypertension Class 3 severe obesity due to excess calories without serious comorbidity with body mass index (BMI) of 50.0 to 59.9 in adult ([facility]) Type 2 diabetes mellitus without complication, without long-term current use of insulin (HCC) IQBAL (dyspnea on exertion) Other dyspnea and respiratory abnormality Dyspnea on exertion Other dyspnea and respiratory abnormality documented in this encounter [facility] HealthcareEvaluation note* Diagnosis Chronic pain of both [...] (BMI) of 50.0 to 59.9 in adult ([facility]) Type 2 diabetes mellitus without complication, [...] Moderate episode of recurrent major depressive disorder ([facility]) Class 3 severe obesity due to excess calories without serious comorbidity with body mass index (BMI) of 50.0 to 59.9 in adult ([facility]) Need for immunization against influenza Need [...] (BMI) of 50.0 to 59.9 in adult ([facility]) Type 2 diabetes mellitus without complication, [...] (BMI) of 50.0 to 59.9 in adult ([facility]) Type 2 diabetes mellitus without complication, without long-term current use of insulin (HCC) IQBAL (dyspnea on exertion) Other dyspnea and respiratory abnormality Dyspnea on exertion Other dyspnea and respiratory abnormality Thyroid nodule- Primary Nontoxic uninodular goiter Adrenal nodule (HCC) Benign neoplasm of adrenal gland documented in this encounter [facility] HealthcareEvaluation note* Diagnosis Chronic pain of [...] (BMI) of 50.0 to 59.9 in adult ([facility]) Type 2 diabetes mellitus without complication, [...] (BMI) of 50.0 to 59.9 in adult ([facility]) Need for immunization against influenza Need [...] (BMI) of 50.0 to 59.9 in adult ([facility]) Type 2 diabetes mellitus without complication, without long-term current use of insulin (HCC) Type 2 diabetes mellitus with polyneuropathy (HCC) Type II or unspecified type diabetes mellitus with neurological manifestations, not stated as uncontrolled Moderate episode of recurrent major depressive disorder ([facility]) Bilateral lower extremity edema Medicare annual wellness visit, subsequent- Primary JEFF (obstructive sleep apnea) Obstructive sleep apnea (adult) (pediatric) Primary hypertension Unspecified essential hypertension Class 3 severe obesity due to excess calories without serious comorbidity with body mass index (BMI) of 50.0 to 59.9 in adult ([facility]) Type 2 diabetes mellitus without complication, without long-term current use of insulin (HCC) IQBAL (dyspnea on exertion) Other dyspnea and respiratory abnormality Dyspnea on exertion Other dyspnea and respiratory abnormality Type 2 diabetes mellitus without complication, without long-term current use of insulin (HCC) documented in this encounter [facility] HealthcareEvaluation note* Diagnosis Chronic pain of [...] (BMI) of 50.0 to 59.9 in adult ([facility]) Type 2 diabetes mellitus without complication, [...] (BMI) of 50.0 to 59.9 in adult ([facility]) Need for immunization against influenza Need [...] due to underlying condition with diabetic polyneuropathy ([facility]) Dyspnea on exertion- Primary Other dyspnea and respiratory abnormality JEFF (obstructive sleep apnea) Obstructive sleep apnea (adult) (pediatric) Primary hypertension Unspecified essential hypertension Class 3 severe obesity due to excess calories without serious comorbidity with body mass index (BMI) of 50.0 to 59.9 in adult ([facility]) Type 2 diabetes mellitus without complication, without long-term current use of insulin ([facility]) Type 2 diabetes mellitus with polyneuropathy [...] (BMI) of 50.0 to 59.9 in adult ([facility]) Type 2 diabetes mellitus without complication, without long-term current use of insulin (HCC) IQBAL (dyspnea on exertion) Other dyspnea and respiratory abnormality Dyspnea on exertion Other dyspnea and respiratory abnormality Type 2 diabetes mellitus without complications ([facility]) documented in this encounter [facility] HealthcareEvaluation note* Diagnosis Chronic pain of [...] (BMI) of 50.0 to 59.9 in adult ([facility]) Type 2 diabetes mellitus without complication, [...] (BMI) of 50.0 to 59.9 in adult ([facility]) Need for immunization against influenza Need [...] (BMI) of 50.0 to 59.9 in adult ([facility]) Type 2 diabetes mellitus without complication, without long-term current use of insulin (HCC) Type 2 diabetes mellitus with polyneuropathy (HCC) Type II or unspecified type diabetes mellitus with neurological manifestations, not stated as uncontrolled Moderate episode of recurrent major depressive disorder ([facility]) Bilateral lower extremity edema Medicare annual [...] without complications (HCC) documented in this encounter [facility] HealthcareEvaluation note* Diagnosis Chronic pain of [...] (BMI) of 50.0 to 59.9 in adult ([facility]-H[facility]) Type 2 diabetes mellitus without complication, [...] (BMI) of 50.0 to 59.9 in adult ([facility]) Need for immunization against influenza Need [...] (BMI) of 50.0 to 59.9 in adult ([facility]) Type 2 diabetes mellitus without complication, [...] (BMI) of 50.0 to 59.9 in adult ([facility]) Type 2 diabetes mellitus without complication, without long-term current use of insulin (HCC) IQBAL (dyspnea on exertion) Other dyspnea and respiratory abnormality Dyspnea on exertion Other dyspnea and respiratory abnormality Adrenal mass, left (HCC)- Primary Unspecified disorder of adrenal glands documented in this encounter [facility] HealthcareEvaluation note* Diagnosis Chronic pain of both [...] (BMI) of 50.0 to 59.9 in adult ([facility]) Type 2 diabetes mellitus without complication, [...] (BMI) of 50.0 to 59.9 in adult ([facility]) Need for immunization against influenza Need [...] due to underlying condition with diabetic polyneuropathy ([facility]) Dyspnea on exertion- Primary Other dyspnea and respiratory abnormality JEFF (obstructive sleep apnea) Obstructive sleep apnea (adult) (pediatric) Primary hypertension Unspecified essential hypertension Class 3 severe obesity due to excess calories without serious comorbidity with body mass index (BMI) of 50.0 to 59.9 in adult ([facility]) Type 2 diabetes mellitus without complication, without long-term current use of insulin ([facility]) Type 2 diabetes mellitus with polyneuropathy [...] (BMI) of 50.0 to 59.9 in adult ([facility]) Type 2 diabetes mellitus without complication, without long-term current use of insulin ([facility]) IQBAL (dyspnea on exertion) Other dyspnea and respiratory abnormality Dyspnea on exertion Other dyspnea and respiratory abnormality Thyroid nodule- Primary Nontoxic uninodular goiter documented in this encounter [facility] HealthcareEvaluation note* Diagnosis Chronic pain of both [...] (BMI) of 50.0 to 59.9 in adult ([facility]) Type 2 diabetes mellitus without complication, [...] (BMI) of 50.0 to 59.9 in adult ([facility]) Need for immunization against influenza Need [...] due to underlying condition with diabetic polyneuropathy ([facility]) Dyspnea on exertion- Primary Other dyspnea and respiratory abnormality JEFF (obstructive sleep apnea) Obstructive sleep apnea (adult) (pediatric) Primary hypertension Unspecified essential hypertension Class 3 severe obesity due to excess calories without serious comorbidity with body mass index (BMI) of 50.0 to 59.9 in adult ([facility]) Type 2 diabetes mellitus without complication, without long-term current use of insulin ([facility]) Type 2 diabetes mellitus with polyneuropathy [...] (BMI) of 50.0 to 59.9 in adult ([facility]) Type 2 diabetes mellitus without complication, without long-term current use of insulin ([facility]) IQBAL (dyspnea on exertion) Other dyspnea and respiratory abnormality Dyspnea on exertion Other dyspnea and respiratory abnormality Generalized abdominal pain- Primary Abdominal pain, generalized Primary hypertension Unspecified essential hypertension Class 3 severe obesity due to excess calories without serious comorbidity with body mass index (BMI) of 50.0 to 59.9 in adult ([facility]) documented in this encounter [facility]* [...] (BMI) of 50.0 to 59.9 in adult ([facility]) Type 2 diabetes mellitus without complication, [...] (BMI) of 50.0 to 59.9 in adult ([facility]) Need for immunization against influenza Need [...] (BMI) of 50.0 to 59.9 in adult ([facility]) Type 2 diabetes mellitus without complication, [...] (BMI) of 50.0 to 59.9 in adult ([facility]) Type 2 diabetes mellitus without complication, [...] (BMI) of 50.0 to 59.9 in adult ([facility]) Thyroid nodule Nontoxic uninodular goiter documented in this encounter [facility] HealthcareEvaluation note* Diagnosis Chronic pain of both [...] (BMI) of 50.0 to 59.9 in adult ([facility]) Type 2 diabetes mellitus without complication, [...] (BMI) of 50.0 to 59.9 in adult ([facility] Need for immunization against influenza Need [...] due to underlying condition with diabetic polyneuropathy ([facility]) Dyspnea on exertion- Primary Other dyspnea and respiratory abnormality JEFF (obstructive sleep apnea) Obstructive sleep apnea (adult) (pediatric) Primary hypertension Unspecified essential hypertension Class 3 severe obesity due to excess calories without serious comorbidity with body mass index (BMI) of 50.0 to 59.9 in adult ([facility]) Type 2 diabetes mellitus without complication, without long-term current use of insulin (HCC) Type 2 diabetes mellitus with polyneuropathy ([facility]) Type II or unspecified type diabetes mellitus with neurological manifestations, not stated as uncontrolled Moderate episode of recurrent major depressive disorder ([facility]) Bilateral lower extremity edema Medicare annual wellness visit, subsequent- Primary JEFF (obstructive sleep apnea) Obstructive sleep apnea (adult) (pediatric) Primary hypertension Unspecified essential hypertension Class 3 severe obesity due to excess calories without serious comorbidity with body mass index (BMI) of 50.0 to 59.9 in adult ([facility]) Type 2 diabetes mellitus without complication, without long-term current use of insulin ([facility]) IQBAL (dyspnea on exertion) Other dyspnea and respiratory abnormality Dyspnea on exertion Other dyspnea and respiratory abnormality Generalized abdominal pain- Primary Abdominal pain, generalized Primary hypertension Unspecified essential hypertension Class 3 severe obesity due to excess calories without serious comorbidity with body mass index (BMI) of 50.0 to 59.9 in adult ([facility]) Thyroid mass- Primary Unspecified disorder of thyroid documented in this encounter [facility] HealthcareHistory and physical note Author Van Trinh [facility] April 28, 2024 10:05amNote Date/TimeOct2023 10:05[place] [address] Gastroenterology H&P Signed Patient: Shannon Bolaños JR MR #: [id number] : 1955 Acct:[id number] Age/Sex: 68 / M Adm Date: 4 Loc: Room: Type: [facility] Attending Dr: Van Trinh MD Copies [...] signed by Van Trinh MD> 04/28/24 1005 [facility] Work Phone: History general Narrative - Reported* Type Description Date Medical History Hypertension Medical HistoryhyperlipidemiaMedical Historytype II diabetes [employer] Other Hospital course Narrative No data available for this section [facility] Hospital Discharge instructions Additional Instructions DISCHARGE INSTRUCTIONS [...] NOT operate machinery such as power tools, [place] [employer] Median mowers, [place] Thin brickwers, sewing machines, etc. for 24 hours. - [...] needed. -Follow up with PCP. -Office number [phone].[facility] Work Phone: Hospital Discharge instructionsAdditional Instructions [...] the office to follow up in one week.[facility] Work Phone: Progress note No data available for this section [facility] reason for referral (narrative)* Consultation (Routine) - Pending ReviewSpecialtyDiagnoses / ProceduresReferred By ContactReferred To ContactPodiatry Diagnoses Type 2 diabetes mellitus without complication, without long-term current use of insulin ([facility]) Procedures [place] OFFICE/OUTPATIENT NEW HIGH MDM 60 MINUTES Samantha Malik NP [address] [place] [address] Emmanuel Jiang DPM [address] [facility] [address] [place] [address] Referral IDStatusReasonStart DateExpiration DateVisits RequestedVisits [id number] Review Specialty Services Required / * Consultation (Routine) - AuthorizedSpecialtyDiagnoses / ProceduresReferred By ContactReferred To ContactGastroenterology Diagnoses Screening for colon cancer Procedures NC OFFICE/OUTPATIENT NEW HIGH MDM 60 MINUTES Samantha Malik NP [address] [place] [address] Van Trinh MD [address] [address] Referral IDStatusReasonStart DateExpiration DateVisits RequestedVisits [id number] Specialty Services Required / [facility] HealthcareReason for referral (narrative)No reason for referral information availablePomerene Hospital Ctr Work Phone: Summary Purpose Family [...] Shaikh Solorio MD [address] [place] [address] [place] [employer] [address] [place] [address] Phone: [phone] Referral IDStatusReasonStart DateExpiration DateVisits RequestedVisits [id number] Review Chief Complaint and Reason for Visit [...] ed section and content) ReasonCommentsTravel ConsultReasonOnset DateCommentsMed [id number] CommentsFollow-upReasonCommentsDepressionSpecialtyDiagnoses / ProceduresReferred By ContactReferred To ContactBehavioral Health Diagnoses Moderate episode of recurrent major depressive disorder (CMS/HCC) Procedures NC OFFICE/OUTPATIENT [facility] Samantha Malik NP [address] [place] [address] Phone: tel: fax: [facility] [address] [place] [address] Phone: tel: fax: Referral IDStatusReasonStart DateExpiration DateVisits RequestedVisits [id number] Specialty Services Required 11/21/40775/[id number] Change Request ReasonCommentsDM Foot CareDM NAIL/ BL CALLOUSSpecialtyDiagnoses / Procedures Referred By ContactReferred To ContactPodiatry Diagnoses Type 2 diabetes mellitus without complication, without long-term current use of insulin ([facility]) Procedures NC OFFICE/OUTPATIENT NEW HIGH MDM 60 MINUTES Samantha Malik, ELVIA [address] [place] [address] Emmanuel Jiang DPM [address] [place] [address] Referral IDStatusReasonStart DateExpiration DateVisits RequestedVisits [id number] Specialty Services Required /[id number] DateCommentsMed [id number] Date CommentsMed Qlilcn3108/01/2024ReasonCommentsDM Foot CareDm nail careReasonOnset DateCommentsMed Spaksn6910/31/2024ReasonCommentsFollow-upDiabetesReasonComments Medicare Annual Wellness Visit InitialReasonOnset DateCommentsMed Refill 01/23/2025ReasonOnset DateCommentsMed Innlyz6701/30/2025ReasonCommentsMed Refill ReasonCommentsDyspnea on exertionReasonCommentsThyroid NoduleNew Patient : thyroid noduleSpecialtyDiagnoses / ProceduresReferred By ContactReferred To ContactOtolaryngology Diagnoses Nontoxic single thyroid nodule Procedures NC UNLISTED EVALUATION AND MANAGEMENT SERVICE Onelia Simon NP [address] [place] [address] Phone: tel: fax: Juan Ayers, DO [address] [place] [address] Phone: tel: fax: Referral IDStatusReasonStart DateExpiration DateVisits RequestedVisits [id number]/3/20253/[id number] NoduleCT results (unrecognized sect ion and content) No Status Records FoundNo Status Records FoundNo Status Records FoundNo Status Records Found INFORMATION SOURCE (unrecogn ized section and content) DATE CREATED AUTHOR 10/17/2022 [facility] DATE CREATED AUTHOR AUTHOR'S ORGANIZ ATION 03/10/2025 [facility] DATE CREATED AUTHOR AUTHOR'S ORGANIZ ATION 06/05/2025 [facility] DATE CREATED AUTHOR AUTHOR'S ORGANIZ ATION 06/08/2025 [facility] Care Teams (unrecognized sec tion and content) Team MemberRelationshipSpecialtyStart DateEnd Date Shaikh Ram MD [address] [place] [address] PCP - GeneralInternal Medicine08/26/23Team MemberRelationshipSpecialtyStart Date End Date Shaikh Ram MD [address] [place] [address] PCP - GeneralInternal Medicine08/26/23Team MemberRelationshipSpecialtyStart Date End Date Shaikh Ram MD [address] [place] [address] PCP - GeneralInternal Medicine08/26/23 Team Status: Active [...] Marina MD [address] [place] [address] [facility] - [facility]/29/24 Samantha Malik NP [address] [place] [address] [facility]02/29/24Team MemberRelationshipSpecialtyStart DateEnd Date Bakari Marina MD [address] [place] [address] [facility] - [facility]02/29/24 Samantha Malik NP [address] [place] [address] [facility]02/29/24Team MemberRelationshipSpecialtyStart DateEnd Date Bakari Marina MD [address] [place] [address] PCP - General acute hospital Medicine02/29/24 Samantha Malik NP [address] [place] [address] [facility]02/29/24Team MemberRelationshipSpecialtyStart DateEnd Date Bakari Marina MD [address] [place] [address] PCP - Generalmi Medicine02/29/24 Samantha Malik, ELVIA [address] [place] [address] [facility]02/29/24Team MemberRelationshipSpecialtyStart DateEnd Date Bakari Marina MD [address] [place] [address] PCP - [facility]02/29/24 Samantha Malik NP [address] [place] [address] [facility]02/29/24Team MemberRelationshipSpecialtyStart DateEnd Date Bakari Marina MD [address] [place] [address] PCP - [facility]02/29/24 Samantha Malik NP [address] [place] [address] [facility]02/29/24Team MemberRelationshipSpecialtyStart DateEnd Date Bakari Marina MD [address] [place] [address] PCP - [facility]02/29/24 Samantha Malik NP [address] [place] [address] [facility] Medicine02/29/24Team MemberRelationshipSpecialtyStart DateEnd Date Bakari Marina MD [address] [place] [address] PCP - [facility]02/29/24 Samantha Malik, ELVIA [address] [place] [address] [facility]02/29/24Team MemberRelationshipSpecialtyStart DateEnd Date Bakari Marina MD [address] [place] [address] PCP - [facility]02/29/24 Samantha Malik, ELVIA [address] [place] [address] [facility]02/29/24Team MemberRelationshipSpecialtyStart DateEnd Date Bakari Marina MD [address] [place] [address] PCP - [facility]02/29/24 Samantha Malik, ELVIA [address] [place] [address] [facility]02/29/24Team MemberRelationshipSpecialtyStart DateEnd Date Bakari Marina MD [address] [place] [address] PCP - GeneralFami Medicine02/29/24 Samantha Malik, ELVIA [address] [place] [address] [facility]02/29/24Team MemberRelationshipSpecialtyStart DateEnd Date Bakari Marina MD [address] [place] [address] PCP - [facility]02/29/24 Samantha Malik NP [address] [place] [address] [facility]02/29/24Team MemberRelationshipSpecialtyStart DateEnd Date Bakari Marina MD [address] [place] [address] PCP - [facility]02/29/24 Samantha Malik NP [address] [place] [address] [facility]02/29/24Team MemberRelationshipSpecialtyStart DateEnd Date Bakari Marina MD [address] [place] [address] PCP - [facility]02/29/24 Samantha Malik NP [address] [place] [address] Nurse PractitionerFamily Medicine02/29/24 Faisal [address] [facility] Social WorkerBehavioral Health08/31/24Team MemberRelationshipSpecialtyStart Date End Date Bakari Marina MD [address] [place] [address] PCP - GeneralFamily Medicine02/29/24 Samantha Malik, [employer] [address] [place] [address] Nurse PractitionerFamily Medicine02/29/24 [address]ais[address] [facility] Social WorkerBehavioral Health08/31/24Team MemberRelationshipSpecialtyStart Date End Date Bakari Marina MD [address] [place] [address] PCP - GeneralFamily Medicine02/29/24 Samantha Malik, ELVIA [address] [place] [address] Nurse PractitionerFamily Medicine02/29/24 [address]ais[address] [employer] Social WorkerBehavioral Health08/31/24Team MemberRelationshipSpecialtyStart Date End Date Bakari Marina MD [address] [place] [address] PCP - GeneralFamily Medicine02/29/24 Samantha Malik NP [address] [place] [address] Nurse PractitionerFamily Medicine02/29/24 Faisal [address] LPC Social WorkerBehavioral Health08/31/24Team MemberRelationshipSpecialtyStart Date End Date Bakari Marina MD [address] [place] [address] PCP - GeneralFamily Medicine02/29/24 Samantha Malik NP [address] [place] [address] Nurse PractitionerFamily Medicine02/29/24 [address]aisal [address] LPC Social WorkerBehavioral Health08/31/24Team MemberRelationshipSpecialtyStart Date End Date Bakari Marina MD [address] [place] [address] PCP - GeneralFamily Medicine02/29/24 Samantha Malik NP [address] [place] [address] Nurse Practitionermily Medicine02/29/24 [address]aisal [address] LPC Social WorkerBehavioral Health08/31/24Team MemberRelationshipSpecialtyStart Date End Date Bakari Marina MD [address] [place] [address] PCP - GeneralFamily Medicine02/29/24 Samantha Malik NP [address] [place] [address] Nurse PractitionerFamily Medicine02/29/24 [address]ais[address] LPC Social WorkerBehavioral Health08/31/24Team MemberRelationshipSpecialtyStart Date End Date Bakari Marina MD [address] [place] [address] PCP - GeneralFamily Medicine02/29/24 Samantha Malik NP [address] [place] [address] Nurse Practitionermily Medicine02/29/24 Faisal Cr [facility] Social WorkerBehavioral Health08/31/24Team MemberRelationshipSpecialtyStart Date End Date Bakari Marina MD [address] [place] [address] PCP - GeneralFamily Medicine02/29/24 Samantha Malik, ELVIA [address] [place] [address] Nurse PractitionerMethodist Jennie Edmundsonly Medicine02/29/24 Faisal Cr [facility] Social WorkerBehavioral Health08/31/24Team MemberRelationshipSpecialtyStart Date End Date Bakari Marina MD [address] [place] [address] PCP - Generalmily Medicine02/29/24 Samantha Malik, ELVIA [address] [place] [address] Nurse PractitionerMethodist Jennie Edmundsonly Medicine02/29/24 Faisal Cr [facility] Social WorkerBehavioral Health08/31/24Team MemberRelationshipSpecialtyStart Date End Date Bakari Marina MD [address] [place] [address] PCP - GeneralFamily Medicine02/29/24 Samantha Malik NP [address] [place] [address] Nurse PractitionerFamily Medicine02/29/24 [address]ais[address] L[facility]er[facility]08/31/24Team MemberRelationshipSpecialtyStart Date End Date Bakari Marina MD [address] [place] [address] PCP - GeneralFamily Medicine02/29/24 Samantha Malik NP [address] [place] [address] Nurse Practitionermily Medicine02/29/24 Faisal Cr [facility] Social WorkerInd[facility] Center08/31/24Team MemberRelationshipSpecialtyStart Date End Date Bakari Marina MD [address] [place] [address] PCP - GeneralFamily Medicine02/29/24 Samantha Malik NP [address] [place] [address] Nurse Practitionermily Medicine02/29/24 Faisal [address] [employer] Social WorkerIndiana Regional Medical Center08/31/24Team MemberRelationshipSpecialtyStart Date End Date Bakari Marina MD [address] [place] [address] PCP - GeneralFamily Medicine02/29/24 Samantha Malik, ELVIA [address] [place] [address] Nurse PractitionerFamily Medicine02/29/24 [address]ais[address] [facility]08/31/24Team MemberRelationshipSpecialtyStart Date End Date Bakari Marina MD [address] [place] [address] PCP - GeneralFamily Medicine02/29/24 Samantha Malik NP [address] [place] [address] Nurse Practitionermily Medicine02/29/24Team MemberRelationshipSpecialtyStart DateEnd Date Bakari Marina MD [address] [place] [address] PCP - GeneralFamily Medicine02/29/24 Samantha Malik NP [address] [place] [address] Nurse PractitionerFamily Medicine02/29/24Team MemberRelationshipSpecialtyStart DateEnd Date Bakari Marina MD [address] [place] [address] PCP - GeneralFamily Medicine02/29/24 Samantha Malik NP [address] [place] [address] Nurse Practitionermily Medicine02/29/24Team MemberRelationshipSpecialtyStart DateEnd Date Bakari Marina MD [address] [place] [address] PCP - [facility]02/29/24 Samantha Malik NP [address] [place] [address] Nurse Practitioner[facility]02/29/24Team MemberRelationshipSpecialtyStart DateEnd Date Bakari Marina MD [address] [place] [address] PCP - [facility]02/29/24 Samantha Malik NP [address] [place] [address] Nurse Pract[facility]02/29/24Team MemberRelationshipSpecialtyStart DateEnd Date Bakari Marina MD [address] [place] [address] PCP - [facility]02/29/24 Samantha Malik NP [address] [place] [address] [facility]02/29/24 Team Status: Inactive Member Role Status [...] - GeneralFamily Medicine02/29/24 Samantha Malik NP Nurse PractitionerMethodist [facility]only Medicine02/29/24Team MemberRelationshipSpecialtyStart DateEnd Date Bakari Marina MD PCP - GeneralFamily Medicine02/29/24 Samantha Malik NP Nurse Practitionermily Medicine02/29/24Team MemberRelationshipSpecialtyStart DateEnd Date Bakari Marina MD PCP - GeneralFamily Medicine02/29/24 Samantha Malik NP [facility]02/29/24 Team Status: Active Member [...] 2025 End: March 28, 2025Onelia Simon , [employer]-CAttending ProviderActiveStart: March 28, 2025 End: March 28, 2025Tiff Boo MDOther ProviderActiveStart: March 28, 2025 End: March 28, 2025 Team Status: Active Member Role/Relationship Status Dates NON STAFF Primary Care Provider Active Start: March 29, 2025 Onelia Simon , [employer]-CAttending ProviderActiveStart: March 29, 2025 Team Status: Inactive Member Role/Relationship Status Dates NON STAFF Primary Care Provider Active Start: May 19, 2025 End: May 19enfatemehkristofer Ayers , Attending ProviderActiveStart: May 19, 2025 End: May 19, 2025Team MemberRelationshipSpecialtyStart DateEnd Date Shaikh Ram MD PCP - GeneralInternal Medicine Bakari Marina MD PCP - GeneralFamily Medicine02/29/24 Samantha Malik NP Nurse PractitionerFamily Medicine02/29/[address] LPC Social WorkerIndiana Regional Medical CenterTeam MemberRelationshipSpecialtyStart DateEnd Date Bakari Marina MD [address] [place] [address] PCP - GeneralFamily Medicine02/29/24 Samantha Malik NP [...] BE BASED ON THE PRIMARY CLINICAL RECORDS. [facility] [employer] provides no warranty or guarantee of the accuracy or completeness of information in this document.
[2025-06-30 14:36] LABS: Thyroid Stimulating Hormone 2.632 uIU/mL (0.358-3.740)
== END 2025-06-30 12:41 | disposition home or self-care (01) ==
LOC: LAB 12:42
PROVIDERS: PCP Nurse Practitioner; Visit Provider Otolaryngology
DX: E89.0 Postprocedural hypothyroidism (principal)
CPT/HCPCS: 36415; 84436; 84443; 84480